=== PATIENT | female | born 1970 | race Caucasian/White ===

== ENCOUNTER → 2016-09-02 | Outpatient (CLI) | payer BC ==
[2015-09-03 13:52] VITALS: BP 141/84; PULSE 68
[~2016-09-02] MED LIST: ADVIN25/60 INH; CALC500C70 PO; TAMO20TA47 PO
[2016-09-02 14:12] VITALS: BP 117/70; PULSE 64; TEMP 37; O2SAT 97
--- NOTE | 2016-09-02 15:53 | Radiation Oncology Follow-Up ---
Radiation Oncology Follow-Up Date of Visit Sep 02, 2016. Reason For Visit Annual follow-up Radiation Completion Date 01/25/13 Diagnosis (1) Breast cancer Status: Resolved Onset Date: 03/21/2012 Histology Subtype: ductal Stage: lll (C) Permanent Comment: Self detected right breast mass Status post right breast ultrasound and core needle biopsy revealing invasive ductal carcinoma with extensive DCIS and invasive lobular carcinoma estrogen receptor positive, progesterone receptor positive, and HER-2/rashida negative Status post right mastectomy and axillary dissection with left prophylactic mastectomy Stage pT3 bN3 M0 Status post systemic chemotherapy with TAC Status post completion of radiation therapy 01/25/2013 received 5920 cGy Status post placement of permanent implants Last Edited By: Cinthia Mensah on Sep 03, 2015 16:31 History of Present Illness Ms. Cordoba is a 44-year-old female who self detected a right breast mass. She underwent a bilateral mammogram on March 13, 2012. The left breast was unremarkable. The right breast revealed a spiculated shadowing at the 12 o'clock position measuring 2.2 x 2.9 x 2.4 cm located 4 cm from the nipple. In addition at the 2 o'clock position a 1.4 x 1.8 x 2.2 cm lesion noted 4 cm from the nipple and at the 4 o'clock position a 1.7 x 2.7 x 2.3 cm mass 5 cm from the nipple. Clinical examination showed a large area of induration and hard tissue diffusely involving the areola and surrounding tissue covering an area of 10-15 cm. This mass was clinically mobile relative to the chest wall, but immobile relative to the areola. The mammogram showed a spiculated mass at the 12 o'clock position middle depth with an adjacent 1.5 cm nodule. On March 15 the patient underwent a bilateral breast MRI with contrast. The left breast revealed no suspicious masses or non- mass like enhancement. The right breast showed numerous suspicious enhancing masses and foci throughout all four quadrants of the breast. The most suspicious area is located middle depth 12 o'clock, grossly measuring 6.5 x 6.8 x 5.7 cm with spiculated margin and rapid uptake and washout kinetics consistent with an infiltrating carcinoma. Estimated volume of the abnormal enhancement surrounding this measures 9.8 x 8.9 x 9.6 cm, which includes numerous smaller similar enhancing nodules and which extends into all four quadrants of the breast. At the 4 o'clock position a 2.4 x 0.8 x 2.5 cm anterior depth area of suspicious enhancement is noted which corresponds to a hypoechoic lesion seen on ultrasound. At the 6-7 o'clock anterior retroareolar region is a 4.0 x 2.7 x 2.7 cm area of heterogeneous abnormal enhancement with rapid uptake and washout kinetics corresponding to an abnormal appearance on ultrasound. These findings are suspicious for a multifocal, multicentric carcinoma of the breast with diffuse involvement. On March 21, 2012, the patient underwent a unilateral right breast ultrasound-guided core biopsy. Preliminary ultrasound redemonstrated at 12 o'clock a spiculated shadowing mass measuring 2.8 x 2.1 x 1.4 cm located 4 cm from the nipple and at the 4 o'clock position an irregular hypoechoic shadowing mass measuring 1.1 x 1.6 x 1.0 cm located 5-6 cm from the nipple. Biopsy of the right breast 12 o'clock mass located 4 cm from the nipple revealed an invasive ductal carcinoma, histologic grade 1 measuring 1.2 cm in greatest dimension. Extensive ductal carcinoma in situ, cribriform with nuclear grade 2 and associated central necrosis and microcalcifications were identified. The biopsy from the right breast 4 o'clock position 6 cm from the nipple revealed an invasive lobular carcinoma, classical type, histologic grade 2 measuring 0.6 cm in greatest dimension. Estrogen receptors were strongly positive, progesterone receptors were moderately positive with HER-2/rashida analysis negative for both lesions. They were also negative by FISH. The patient underwent a staging workup. This included a PET CT scan on April 05, 2012. This showed multifocal metabolic activity in the right breast mass with extension to the right axillary lymph node. No other areas of disseminated disease appreciated. On April 07 the patient underwent an MRI of the brain. There was no evidence of brain metastasis. The patient subsequently met with Dr. Carbajal to discuss treatment options. After discussion she opted for a prophylactic left breast mastectomy and a right breast mastectomy with axillary dissection with immediate breast reconstruction. This was performed on April 21, 2012. Six sentinel lymph nodes from the right breast were identified; all 6 contained metastatic carcinoma with sentinel lymph node 5 consisting of 3 nodes. The patient went on to have a completion axillary dissection. A total of 23 nodes were identified of which 19 contained metastatic carcinoma. The most of the metastatic tumor present is consistent with lobular carcinoma, but a minority does appear ductal. The size of the largest metastasis is 2.5 cm and there was not evidence of extranodal invasion. The right breast tissue was identified. In the lower inner quadrant a tumor mass was identified measuring 4.0 x 2.5 x 2.0 cm. There was involvement of the nipple, but no involvement of the muscle. Base of tumor and LCIS involved the base of the nipple with no Paget's disease noted. There was no lymphovascular or perineural invasion identified. Tumor #2 from the superior aspect of the breast was also identified with a tumor mass measuring 5.2 x 3.0 x 3.0 cm. No skin, nipple or skeletal muscle involvement was identified. There was DCIS primarily cribriform nuclear grade 2/3 with variable comedonecrosis identified. There was significant DCIS present, but the overall findings are insufficient to classify this as extensive DCIS. No LCIS was noted. There was no lymphovascular or perineural invasion appreciated. Two tumors do collide showing a mixture of invasive and in situ carcinoma of lobular and ductal differentiation. Tumor #2 was an invasive ductal carcinoma with Simpson grade 1/3. The AJCC pathologic stage was therefore a [id number] Stage III-C infiltrating ductal infiltrating lobular carcinoma. The patient was seen by Dr. Infante and evaluated for systemic chemotherapy. She completed her course of systemic chemotherapy. She then returned to our office To undergo radiation therapy. This was completed 01/25/2013 she received 5940 cGy. Interim History She had an evaluation for shortness of breath January 2016. This ultimately led to CT of the chest and then a PET/CT. PET/CT revealed probable recurrent breast carcinoma involving multiple stations low cervical, mediastinal, hilar, internal mammary, subpectoral, and upper abdominal warren stations. No definite evidence of osseous involvement or hepatic involvement. She had seen Dr. Infante and was referred to Dr. Farmer and underwent a bronchoscopy. She was diagnosed with sarcoidosis and it is felt that this was causing the extensive lymphadenopathy. She was started on inhalers and had improvement in her shortness of breath. She's been followed closely by Dr. Infante had recheck tumor marker studies. These have remained stable. Allergies Coded Allergies: No Known Allergies (Unverified , 05/11/12) Home Medications Scheduled Calcium/Vitamin D (Os-Adolfo 500 Plus D), 1 TAB PO BID Fluticasone Prop/Salmeterol (Advair Diskus 250/50 60 Dose), 1 PUFFS INH BID Tamoxifen (Nolvadex), 20 MG PO DAILY Review of Systems Gastrointestinal: Symptoms: WNL Oral: Symptoms: No Problems Respiratory: Symptoms: SOB With Exertion Urinary: Symptoms: WNL Skin: Symptoms: No Problems Breast: Right Upper Arm Measurement: 36.8 Right Mid Arm Measurement: 28.5 Right Wrist Measurement: 16.8 Left Upper Arm Measurement: 36.8 Left Mid Arm Measurement: 37.8 Left Wrist Measurement: 16.5 Arm Dominence: Right Physical Exam Vital Signs Date Time Temp Pulse Resp B/P Pulse Ox O2 Delivery O2 Flow Rate FiO2 09/02/16 14:12 37.0 64 16 117/70 97 Pain: Pain Location: None Patient Pain Scale: 0 - 10 Initial Pain Intensity: 0.0 Fatigue: None General Appearance: no apparent distress Eyes: normal inspection, EOMI ENT: normal ENT inspection, hearing grossly normal Neck: no adenopathy, thyroid normal Respiratory/Chest: lungs clear, no respiratory distress, no accessory muscle use Breast: Breast examination reveals bilateral breast implants. There are no masses or tenderness and no axillary adenopathy. She has mild telangiectasis along the incision line on the right. There are no skin retractions. There is slight edema below the incision line. Using the Hazle[place] score cosmesis she has a good outcome. Cardiovascular: regular rate, rhythm, no gallop, no murmur Abdomen: non tender, soft, no organomegaly Extremities: no pedal edema Neurologic/Psychiatric: no motor/sensory deficits, alert, normal mood/affect Skin: warm/dry Lymphatic: no adenopathy Assessment & Plan Plan: Continue regular follow-up with Dr. Infante in medical oncology. He is following tumor marker studies. She continues follow-up with in regards to the new diagnosis of sarcoidosis. I reviewed with her to the massage to the area of edema below the incision line. We reviewed the presence of telangiectasia as a late side effect of treatment. We asked her to return to our office in 1 year. She may call if she has any questions or concerns in the interim. Total Time In Follow-Up I spent 20 minutes speaking to the patient performing examination. I spent 15 minutes reviewing information and completing this note. Copy To Susie White M.D.; Cory Infante M.D. Problem Qualifiers (1) Breast cancer: Breast location: central portion of breast Patient sex: female Laterality: right Qualified Codes: C50.111 - Malignant neoplasm of central portion of right female breast
== END | disposition home or self-care (01) ==
LOC: C.ONC 14:06
PROVIDERS: ATTEND Radiology Radiation Oncology
DX: Z08 Encounter for follow-up examination after completed treatment for malignant neoplasm (principal); Z92.3 Personal history of irradiation; Z85.3 Personal history of malignant neoplasm of breast

== ENCOUNTER → 2017-09-06 | Outpatient (CLI) | payer BC ==
[~2017-09-06] MED LIST changes: -TAMO20TA47 PO; +TAMO20TA9 PO
[2017-09-06 14:18] VITALS: BP 121/81; PULSE 69; TEMP 36.6; O2SAT 98
--- NOTE | 2017-09-06 16:08 | Radiation Oncology Follow-Up ---
Radiation Oncology Follow-Up Date of Visit Sep 06, 2017. Reason For Visit Annual follow-up Radiation Completion Date finished 01-25-2013 Diagnosis (1) Breast cancer Status: Resolved Onset Date: 03/21/2012 Stage: lll (C) Permanent Comment: Self detected right breast mass Status post right breast ultrasound and core needle biopsy revealing invasive ductal carcinoma with extensive DCIS and invasive lobular carcinoma estrogen receptor positive, progesterone receptor positive, and HER-2/rashida negative Status post right mastectomy and axillary dissection with left prophylactic mastectomy Stage pT3 bN3 M0 Status post systemic chemotherapy with TAC Status post completion of radiation therapy 01/25/2013 received 5920 cGy Status post placement of permanent implants Last Edited By: Cinthia Mensah on Sep 03, 2015 16:31 History of Present Illness Ms. Cordoba self detected a right breast mass. She underwent a bilateral mammogram on March 13, 2012. The left breast was unremarkable. The right breast revealed a spiculated shadowing at the 12 o'clock position measuring 2.2 x 2.9 x 2.4 cm located 4 cm from the nipple. In addition at the 2 o'clock position a 1.4 x 1.8 x 2.2 cm lesion noted 4 cm from the nipple and at the 4 o'clock position a 1.7 x 2.7 x 2.3 cm mass 5 cm from the nipple. Clinical examination showed a large area of induration and hard tissue diffusely involving the areola and surrounding tissue covering an area of 10-15 cm. This mass was clinically mobile relative to the chest wall, but immobile relative to the areola. The mammogram showed a spiculated mass at the 12 o'clock position middle depth with an adjacent 1.5 cm nodule. On March 15 the patient underwent a bilateral breast MRI with contrast. The left breast revealed no suspicious masses or non- mass like enhancement. The right breast showed numerous suspicious enhancing masses and foci throughout all four quadrants of the breast. The most suspicious area is located middle depth 12 o'clock, grossly measuring 6.5 x 6.8 x 5.7 cm with spiculated margin and rapid uptake and washout kinetics consistent with an infiltrating carcinoma. Estimated volume of the abnormal enhancement surrounding this measures 9.8 x 8.9 x 9.6 cm, which includes numerous smaller similar enhancing nodules and which extends into all four quadrants of the breast. At the 4 o'clock position a 2.4 x 0.8 x 2.5 cm anterior depth area of suspicious enhancement is noted which corresponds to a hypoechoic lesion seen on ultrasound. At the 6-7 o'clock anterior retroareolar region is a 4.0 x 2.7 x 2.7 cm area of heterogeneous abnormal enhancement with rapid uptake and washout kinetics corresponding to an abnormal appearance on ultrasound. These findings are suspicious for a multifocal, multicentric carcinoma of the breast with diffuse involvement. On March 21, 2012, the patient underwent a unilateral right breast ultrasound-guided core biopsy. Preliminary ultrasound redemonstrated at 12 o'clock a spiculated shadowing mass measuring 2.8 x 2.1 x 1.4 cm located 4 cm from the nipple and at the 4 o'clock position an irregular hypoechoic shadowing mass measuring 1.1 x 1.6 x 1.0 cm located 5-6 cm from the nipple. Biopsy of the right breast 12 o'clock mass located 4 cm from the nipple revealed an invasive ductal carcinoma, histologic grade 1 measuring 1.2 cm in greatest dimension. Extensive ductal carcinoma in situ, cribriform with nuclear grade 2 and associated central necrosis and microcalcifications were identified. The biopsy from the right breast 4 o'clock position 6 cm from the nipple revealed an invasive lobular carcinoma, classical type, histologic grade 2 measuring 0.6 cm in greatest dimension. Estrogen receptors were strongly positive, progesterone receptors were moderately positive with HER-2/rashida analysis negative for both lesions. They were also negative by FISH. The patient underwent a staging workup. This included a PET CT scan on April 05, 2012. This showed multifocal metabolic activity in the right breast mass with extension to the right axillary lymph node. No other areas of disseminated disease appreciated. On April 07 the patient underwent an MRI of the brain. There was no evidence of brain metastasis. The patient subsequently met with Dr. Carbajal to discuss treatment options. After discussion she opted for a prophylactic left breast mastectomy and a right breast mastectomy with axillary dissection with immediate breast reconstruction. This was performed on April 21, 2012. Six sentinel lymph nodes from the right breast were identified; all 6 contained metastatic carcinoma with sentinel lymph node 5 consisting of 3 nodes. The patient went on to have a completion axillary dissection. A total of 23 nodes were identified of which 19 contained metastatic carcinoma. The most of the metastatic tumor present is consistent with lobular carcinoma, but a minority does appear ductal. The size of the largest metastasis is 2.5 cm and there was not evidence of extranodal invasion. The right breast tissue was identified. In the lower inner quadrant a tumor mass was identified measuring 4.0 x 2.5 x 2.0 cm. There was involvement of the nipple, but no involvement of the muscle. Base of tumor and LCIS involved the base of the nipple with no Paget's disease noted. There was no lymphovascular or perineural invasion identified. Tumor #2 from the superior aspect of the breast was also identified with a tumor mass measuring 5.2 x 3.0 x 3.0 cm. No skin, nipple or skeletal muscle involvement was identified. There was DCIS primarily cribriform nuclear grade 2/3 with variable comedonecrosis identified. There was significant DCIS present, but the overall findings are insufficient to classify this as extensive DCIS. No LCIS was noted. There was no lymphovascular or perineural invasion appreciated. Two tumors do collide showing a mixture of invasive and in situ carcinoma of lobular and ductal differentiation. Tumor #2 was an invasive ductal carcinoma with Elly grade 1/3. The AJCC pathologic stage was therefore a [id number] Stage III-C infiltrating ductal infiltrating lobular carcinoma. The patient was seen by Dr. Infante and evaluated for systemic chemotherapy. She completed her course of systemic chemotherapy. She then returned to our office To undergo radiation therapy. This was completed 01/25/2013 she received 5940 cGy. Interim History She is noted no masses or changes of the axilla. She has no areas of tenderness. She has a recurring itching sensation along the outer portion of the inframammary fold. She's noticed no changes of redness. She is to had no areas of dryness or skin irritation. She has been followed closely by medical oncology. She had a PET scan in January 2016 which showed extensive lymphadenopathy. She was evaluated by Dr. Farmer at [facility] with bronchoscopy and biopsy. This was found to be sarcoidosis. This is currently treated with an Advair inhaler. She uses this twice daily. There are times when she becomes more short of breath. This then resolves. She had a recheck CT of the chest January 2017 which showed that the lymph nodes have decreased in size. She has a follow-up appointment with Dr. Farmer and will be having a CT of the chest again in January. Allergies Coded Allergies: No Known Allergies (Unverified , 05/11/12) Home Medications Scheduled Calcium/Vitamin D (Os-Adolfo 500 Plus D), 1 TAB PO BID Fluticasone Prop/Salmeterol (Advair Diskus 250/50 60 Dose), 1 PUFFS INH BID Tamoxifen (Nolvadex), 20 MG PO DAILY Review of Systems Gastrointestinal: Symptoms: WNL Oral: Symptoms: No Problems Respiratory: Symptoms: SOB With Exertion Other Respiratory: was diagnosed with scardosis Urinary: Symptoms: WNL Skin: Symptoms: No Problems Breast: Right Upper Arm Measurement: 38.0 Right Mid Arm Measurement: 28.0 Right Wrist Measurement: 16.8 Left Upper Arm Measurement: 37.0 Left Mid Arm Measurement: 26.5 Left Wrist Measurement: 16.8 Arm Dominence: Right Patient Cosmetic Evaluation: Good Staff Cosmetic Evalaluation: Good Physical Exam Vital Signs Date Time Temp Pulse Resp B/P (MAP) Pulse Ox O2 Delivery O2 Flow Rate FiO2 09/06/17 14:18 36.6 69 16 121/81 98 General Appearance: no apparent distress Eyes: normal inspection, EOMI ENT: normal ENT inspection, hearing grossly normal Neck: no adenopathy, thyroid normal Respiratory/Chest: lungs clear, no respiratory distress, no accessory muscle use Breast: Breast examination reveals bilateral implants. There are no masses or tenderness and no axillary adenopathy. There is slight edema along the lower portion of the right central incision. Using the Noel score cosmesis she has a good outcome. Cardiovascular: regular rate, rhythm, no gallop, no murmur Extremities: no pedal edema Neurologic/Psychiatric: no motor/sensory deficits, alert, normal mood/affect Skin: warm/dry Pain Management Patient Reports Pain: No Side: Bilateral Patient Preferred Pain Scale: 0 - 10 Initial Pain Intensity: 0.0 Pain Management Plan She denies pain therefore requires no pain management. Laboratory Laboratory Results: not applicable Pathology Pathology Results: not applicable Imaging Imaging Studies: were reviewed Imaging Comments Reviewed in the interim history. Assessment & Plan Plan: Continue regular follow-up with Dr. Infante in medical oncology. She continues follow-up with Dr. Farmer. She'll be having a CT of the chest in January. We discussed the itching of the inframammary fold. We discussed that this could be a later skin irritation and could be helped by using Zostrix over- the-counter. She will try this to see if it helps desensitize the area of skin itching. We asked her to return to our office in 1 year. She may call if she has any questions or concerns in the interim. Total Time In Follow-Up I spent 20 minutes speaking to the patient performing examination. I spent 15 minutes reviewing information in completing this note. Copy To Susie White M.D.; Cory Infante M.D. Problem Qualifiers (1) Breast cancer: Breast location: central portion of breast Estrogen receptor status: positive Patient sex: female Laterality: right Qualified Codes: C50.111 - Malignant neoplasm of central portion of right female breast; Z17.0 - Estrogen receptor positive status [ER+]
== END | disposition home or self-care (01) ==
LOC: C.ONC 13:55
PROVIDERS: ATTEND Physician Assistant Medical
DX: Z08 Encounter for follow-up examination after completed treatment for malignant neoplasm (principal); Z92.3 Personal history of irradiation; Z85.3 Personal history of malignant neoplasm of breast

== ENCOUNTER 2019-10-01 15:45 | Inpatient (IN) ==
[2019-10-01] MEDS ORDERED: ONDANSETRON INJ 2 MG/ML 2 ML VIAL IV STA (16:13)
[2019-10-01] MEDS ORDERED: MoRPHine SULFATE 4 MG/ML 1 ML CARP\\VIAL IV PRN (16:13)
[2019-10-01] MEDS ORDERED: SODIUM CHLORIDE 0.9% 1000ML 1,000 ML IV SCH (16:15)
[2019-10-01 16:23] LABS: Basophils # (auto) 0.02 K/uL (0-0.2); Basophils % (auto) 0.2 %; Eosinophils # (auto) 0.03 K/uL (0-0.5); Eosinophils % (auto) 0.3 %; Hematocrit (blood only) 40.1 % (37-47); Hemoglobin 13.3 g/dL (12.0-16.0); Immature Granulocytes # (auto) 0.02 K/uL (0.00-0.02); Immature Granulocytes % (auto) 0.2 %; Lymphocytes # (auto) 1.67 K/uL (1.2-3.4); Lymphocytes % (auto) 18.9 %; Mean Corpuscular Hemoglobin 30.3 pg (25-34); Mean Corpuscular Hgb Conc 33.2 g/dL (32-36); Mean Corpuscular Volume 91.3 fL (80-100); Mean Platelet Volume 10.5 fL (7.4-10.4); Monocytes # (auto) 0.42 K/uL (0.11-0.59); Monocytes % (auto) 4.8 %; Neutrophils # (auto) 6.66 K/uL (1.4-6.5); Neutrophils % (auto) 75.6 %; Platelet Count 243 K/uL (130-400); RDW Coefficient of Variation 13.4 % (11.5-14.5); RDW Standard Deviation 44.3 fL (36.4-46.3); Red Blood Count 4.39 M/uL (4.2-5.4); White Blood Count 8.82 K/uL (4.8-10.8)
[2019-10-01 16:30] LABS: Albumin Level 3.5 gm/dl (3.4-5.0); BUN Creatinine Ratio 10.5 (10-20); Calcium 9.4 mg/dl (8.5-10.1); Creatinine Clr Calc Pharmacy 77.5 ml/min; Est GFR (African American) 71.6; Est GFR (Non-African American) 61.8; Potassium 3.7 mmol/L (3.5-5.1)
[2019-10-01 16:33] LABS: Albumin Globulin Ratio 0.8 (0.9-2); Bilirubin,Total 0.4 mg/dl (0.2-1); Globulin 4.2 gm/dl (2.5-4.0); Total Protein 7.7 gm/dl (6.4-8.2)
[2019-10-01] MEDS ORDERED: PIPERACILL/TAZOBAC CONSULT ACTIVE PRN (18:35)
--- NOTE | 2019-10-01 18:51 | History & Physical Report ---
Date of Service October 01, 2019 Assessment & Plan (1) Acute cholecystitis: This is a 49 yr old F who has significant PMH of Breast Cancer and sarcoidosis who presents to ED 2/2 to epigastric abdominal pain off and on x 1 week. Ultrasound in outpatient setting revealed acute cholecystitis with 13mm nonmobile gallstone in the neck of the gallbladder and diffusely thickened gallbladder wall along with findings of additional cholelithiasis and distended gallbladder. She is afebrile and remains hemodynamically stable. She does not have a leukocytosis. LFTs are WNL, mild elevation in AST to 41. Admit to [facility] General surgery consulted Obtain MRCP Clear liquids tonight, n.p.o. after midnight IV Zosyn IV morphine 4 mg as needed moderate/severe pain Repeat labs in a.m. SCD/teds for DVT prophylaxis (2) Lymph node enlargement: Ultrasound of abdomen revealed an incidental 16 x 10 x 18 mm probable peripancreatic lymph node Will need further evaluation and follow-up given prior history of breast cancer (3) Breast cancer: hx of R Breast ca s/p R masectomy with Axillary lymph node dissection and prophylactic left mastectomy Follows [facility] oncology Dr. Infante Currently on tamoxifen treatment as outpatient, hold while inpatient per discussion between Dr. Taveras with Dr. Infante due to increased risk of DVT/PE Peripancreatic lymph node 16 x 10 x 18 mm noted on ultrasound --will need furt her follow-up given history of breast cancer (4) Sarcoidosis: Follows Dr. Farmer, [facility] currently not receiving treatment dx 2015 via bronchoscopy (5) DVT prophylaxis: SCD/TEDS hold tamoxifen given increased risk of DVT/PE until discharge Disposition: pt admitted to med/surg; discharge to home when able Follow up: PCP Dr. العراقي upon discharge Patient was seen and examined in collaboration with Dr. Taveras, please see addendum History of Present Illness Chief Complaint: Epigastric abdominal pain off and on x 1 week. Primary Care Provider: Susie White MD This is a 49 yr old F who has significant PMH of Breast Cancer and sarcoidosis who presents to ED 2/2 to epigastric abdominal pain off and on x 1 week. at bedside. Pain located in epigastrum with radiation to chest, last 2-3 hours before resolving, worse after meals and liquids, rated 8/10 when present, currently asymptomatic. Initially felt sx likely 2/2 to heart burn. She takes protonix daily. Tried zantac with out relief. Was seen by PCP today and has RUQ US which revealed acute cholecystitis so she was referred to ED. Since last week she has had 2-3 episodes of emesis with abdominal pain, nausea and 2-3 episodes of diarrhea. Last BM this a.m. which was normal for her. Denies f/c/s, dizziness, lightheaded, chest pain, palpitations, SOB, dysuria, increased urg/freq with urination. Overall had had an appetite but eat and drinking less due to pain. Has tried OTC tylenol, nsaids and zantac w/o relief. In ED she remained hemodynamically stable. LFT WNL AST 41, ALT 41, T bili 0.4, alk phos 72, wbc 8.82, H&H 13.3 and 40.1, cr 1.07. She received IV zofran and IV morphine in ED with relief of sx. Allergies Allergy/AdvReac Type Severity Reaction Status Date / Time No Known Allergies Allergy Unverified 05/11/12 07:43 Home Medications Home Medications Medication Instructions Recorded Confirmed Type calcium carbonate-vitamin D3 2 cap PO DAILY 10/01/19 10/01/19 History [Calcium 600 + D(3)] pantoprazole 40 mg PO DAILY 10/01/19 10/01/19 History tamoxifen 20 mg PO DAILY 10/01/19 10/01/19 History Past Med/Surg History Medical History (Updated 10/01/19 @ 19:22 by Berkley Mariee PA-C) Breast cancer (Resolved 03/21/12) "Self detected right breast mass Status post right breast ultrasound and core needle biopsy revealing invasive ductal carcinoma with extensive DCIS and invasive lobular carcinoma estrogen receptor positive, progesterone receptor positive, and HER-2/rashida negative Status post right mastectomy and axillary dissection with left prophylactic mastectomy Stage pT3 bN3 M0 Status post systemic chemotherapy with TAC Status post completion of radiation therapy 01/25/2013 received 5920 cGy Status post placement of permanent implants " Sarcoidosis Surgical History History of bilateral mastectomy 04/21/2012 Right mastectomy with right axillary lymph node dissectiona nd left prophylactic mastectomy 04/21/12 Dr. 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 Beliefs That Will Affect Care: None marital status: Current Living Situation: Spouse Other Information That Helps Us Care for You: No Feels Safe at Home: Yes Safety Concerns: Feels Safe At This Time Smoking Status: Never smoker Hx Alcohol Use: Yes Alcohol type: wine Alcohol Intake Frequency: Rarely Hx Substance Use: No Review of Systems Review of Systems: All systems reviewed & are unremarkable except as noted in HPI & below Physical Exam Physical Exam: Constitutional: WD/WN, F, vitals as above, NAD, sitting up in bed, pleasant, conversing easily Head: Normocephalic, Atraumatic Eyes: PERRL, conjunctivae normal, anicteric sclerae ENMT: external ear and nose normal, oropharynx normal Neck: trachea midline, no thyromegaly normal visual inspection Respiratory: normal respiratory effort, lungs clear to auscultation, no wheeze, rales, rhonchi. Normal insp/exp effort, no accessory muscle use Cardiovascular: RRR, no murmur, no edema Vessels: no JVD or carotid bruit Chest: normal inspection of chest Abdomen: normal bowel sounds, soft, nontender, no hepatosplenomegaly Musculoskeletal: no cyanosis or clubbing, extremities motor strength 5/5 Skin: no rashes, warm and dry normal turgor Neurologic: PERRL, EOMI, accommodation nl, no face palsy, no dysarthria CN's II-XI intact bilaterally and moves all extremities Psychiatric: A+Ox3, euthymic affect Lymphatic: no cervical or axillary lymphadenopathy : deferred Results & Data Vital Signs (Past 12 Hours) Vital Signs Temp Pulse Pulse Resp BP BP Pulse Ox 10/01/19 17:26 93 H 16 137/84 96 10/01/19 15:54 36.8 C 78 20 155/99 H 100 Laboratory Results Short CBC 10/01/19 Range/Units 16:00 WBC 8.82 (4.8-10.8) K/uL Hgb 13.3 (12.0-16.0) g/dL Hct 40.1 (37-47) % Plt Count 243 (130-400) K/uL BMP 10/01/19 16:00 Sodium 138 Potassium 3.7 Chloride 107 Carbon Dioxide 26 BUN 11 Creatinine 1.07 Glucose 84 Calcium 9.4 Liver Function 10/01/19 Range/Units 16:00 Total Bilirubin 0.4 (0.2-1) mg/dl AST 41 H (15-37) U/L ALT 41 (12-78) U/L Alkaline Phosphatase 72 (45-117) U/L Albumin 3.5 (3.4-5.0) gm/dl Diagnostic Findings US done in outpt setting 10/01/19 FINDINGS LIVER: Imaged liver demonstrates no evidence of focal mass. Intrahepatic biliary ductal dilatation is noted, dilated common hepatic duct measures 6 mm in diameter. GALLBLADDER: A 13 mm nonmobile gallstone is noted in the neck of the gallbladder. Multiple mobile gallstones are noted in the gallbladder lumen. Ga llbladder wall is thickened, measures 3 mm in diameter. Gallbladder is distended. diagnostic technologist indicates absent sonographic Szymanski's sign. COMMON BILE DUCT: Dilated, measures 10 mm in diameter. PANCREAS: A 16 x 10 x 18 mm hypoechoic lesion near the head of the pancreas is thought to represent a lymph node. RIGHT KIDNEY: Normal in size and echogenicity, measures 10.9 cm long. No hyd ronephrosis or nephrolithiasis. IMPRESSION IMPRESSION 1. A 13 mm nonmobile gallstone in the neck of the gallbladder and diffusely thickened gallbladder wall along with findings of additional cholelithiasis and distended gallbladder. Sonographic findings are suggestive of cholecystitis. diagnostic technologist indicates absent sonographic Szymanski's sign. Clinical correlation, surgical consultation and follow-up advised. 2. Intra and extrahepatic biliary ductal dilatation. Distal obstruction not excluded. MRCP is a consideration for further evaluation. 3. A 16 x 10 x 18 mm probable peripancreatic lymph node. 4. No focal lesion in the liver. 5. Normal right kidney. Medications Administered Morphine Sulfate (Morphine Sulfate) 4 mg IV Q30M PRN PRN Reason: Pain Stop: 10/15/19 16:12 Last Admin: 10/01/19 16:31 Dose: 4 mg Documented by: [id number] Discontinued Medications Sodium Chloride (Nss 1000ml) 1,000 mls @ 999 mls/hr IV .Q1H1M DINORA Stop: 10/01/19 17:15 Last Infusion: 10/01/19 17:26 Dose: 0 mls/hr Documented by: [id number] Admin: 10/01/19 16:31 Dose: 999 mls/hr Documented by: [id number] Ondansetron HCl (Zofran) 4 mg IV NOW STA Stop: 10/01/19 16:14 Last Admin: 10/01/19 16:31 Dose: 4 mg Documented by: [id number] Code Status & VTE Plan Code Status Full Code VTE Prophylaxis Plan VTE Prophylaxis will be ordered: Yes Supervising Physician Co-Signing Physician Notes HISTORY: Record reviewed. Patient interviewed and examined. Care coordinated with Berkley Mariee PA-C. Please refer to her documentation for complete history. Briefly, 49-year-old female with history of sarcoidosis and breast cancer. Developed epigastric/right upper quadrant abdominal pain about a week ago. Symptoms worse after eating. She was seen in clinic today. CBC, chem profile, lipase were unremarkable. GB US revealed cholelithiasis and cholecystitis as detailed below. Patient referred to the ED for further evaluation and management. Received analgesics in the ED with improvement of her symptoms. EXAM: General- no distress Eyes- anicteric Lungs- clear to auscultation; no respiratory distress Cardiovascular- RRR; no JVD; no pretibial edema Abdomen- + bowel sounds, soft, nontender Extremities- no cyanosis; no calf tenderness Neuro- alert, oriented Skin- warm & dry DATA: Hemoglobin 13.3, white count 8820, platelet count 243,000. Normal electrolytes, BUN 11, creatinine 1.07, glucose 84, total bilirubin 0.4, AST 41, ALT 41, alkaline phosphatase 72, lipase 128. Other lab studies as noted. Abdominal ultrasound performed earlier today at [facility]: IMPRESSION 1. A 13 mm nonmobile gallstone in the neck of the gallbladder and diffusely thickened gallbladder wall along with findings of additional cholelithiasis and distended gallbladder. Sonographic findings are suggestive of cholecystitis. diagnostic technologist indicates absent sonographic Szymanski's sign. Clinical correlation, surgical consultation and follow-up advised. 2. Intra and extrahepatic biliary ductal dilatation. Distal obstruction not excluded. MRCP is a consideration for further evaluation. 3. A 16 x 10 x 18 mm probable peripancreatic lymph node. 4. No focal lesion in the liver. 5. Normal right kidney. ASSESSMENT AND PLAN: Cholelithiasis with cholecystitis as well as dilation of common bile duct. IV antibiotic therapy with piperacillin/tazobactam ordered. Consult General Surgery and GI. History of breast cancer on tamoxifen. At risk for perioperative VTE. Discussed with Hematology/Oncology. Hold tamoxifen during hospital stay. SCDs. Ambulate. Suspected peripancreatic lymph node measuring 18 mm in greatest diameter noted on abdominal ultrasound. History of breast cancer and sarcoidosis. Consider biopsy (? EUS) versus monitoring. Please refer to BONI Mariee's documentation for discussion of other issues.
[2019-10-01] MEDS ORDERED: ALUMINUM/MAGNESIUM SUSP 30 ML UDC PO PRN (18:53)
[2019-10-01] MEDS ORDERED: ONDANSETRON INJ 2 MG/ML 2 ML VIAL IV PRN (18:53)
[2019-10-01] MEDS ORDERED: ACETAMINOPHEN 325 MG TAB PO PRN (18:53)
[2019-10-01 19:48] LABS: Appearance Urine Clear (Clear); Bacteria Urine Automated Negative (Negative); Bilirubin Urine Negative (Negative); Blood Urine Negative (Negative); Color Urine Yellow; Epithelial Cell Urine Auto 20-30 /lpf (0-5); Glucose Urine UA Negative (Negative); Ketones Urine Trace (Negative); Leukocyte Esterase Urine 2+ (Negative); Nitrite Urine Negative (Negative); Protein Urine Negative (Negative); RBC Urine Automated 0-4 /hpf (0-4); Specific Gravity Urine 1.009 (1.000-1.030); Urobilinogen Urine Negative (Negative)
[2019-10-01] MEDS ORDERED: PIPERACILLIN/TAZOBACTAM 4.5 GM in DEXTROSE 5% 100 ML IV ONE (20:30)
[2019-10-01] MEDS: MoRPHine SULFATE 4 MG/ML 1 ML CARP\\VIAL IV PRN (20:56)
--- NOTE | 2019-10-01 21:49 | Surgery Consultation ---
Date of Consultation October 01, 2019 Assessment & Plan (1) Acute cholecystitis: Plan is to obtain an MRCP whether or not she may need an ERCP ahead of time to visualize and further evaluate the biliary system prior to proceeding with a cholecystectomy this was discussed with the patient at this hour 9:45 PM we will keep n.p.o. after midnight and reevaluate her tomorrow and pending MRCP results further recommendations will be made addendum MRCP no definite cbd defects will proceed with lap sergei,c,gram possible open r anc explained to pt eveluated pt earlier this AM no abd findings History of Present Illness Reason for Consultation: Possible acute cholecystitis cholelithiasis intrahepatic and extrahepatic biliary ducts dilatation Attending Physician: Raul Taveras MD History of Present Illness Asked to see patient was worked up as an outpatient at [facility] he came to the emergency room with ultrasound findings of a negative Szymanski sign but distended gallbladder with stones and a stone in the neck of the gallbladder and intrahepatic and extrahepatic biliary tree dilatation Allergies Allergy/AdvReac Type Severity Reaction Status Date / Time No Known Allergies Allergy Unverified 05/11/12 07:43 Home Medications Home Medications Medication Instructions Recorded Confirmed Type calcium carbonate-vitamin D3 2 cap PO DAILY 10/01/19 10/01/19 History [Calcium 600 + D(3)] pantoprazole 40 mg PO DAILY 10/01/19 10/01/19 History tamoxifen 20 mg PO DAILY 10/01/19 10/01/19 History Patient History Medical History Breast cancer (Resolved 03/21/12) "Self detected right breast mass Status post right breast ultrasound and core needle biopsy revealing invasive ductal carcinoma with extensive DCIS and invasive lobular carcinoma estrogen receptor positive, progesterone receptor positive, and HER-2/rashida negative Status post right mastectomy and axillary dissection with left prophylactic mastectomy Stage pT3 bN3 M0 Status post systemic chemotherapy with TAC Status post completion of radiation therapy 01/25/2013 received 5920 cGy Status post placement of permanent implants " Sarcoidosis Surgical History History of bilateral mastectomy 04/21/2012 Right mastectomy with right axillary lymph node dissectiona nd left prophylactic mastectomy 04/21/12 Dr. Carbajal at [facility] History of bronchoscopy History of D&C History of esophagogastroduodenoscopy (EGD) 11/2018 dx gastritis History of oophorectomy Family History Father Alive and well Mother Alzheimer disease Denies family history of Heart disease Breast cancer Social History (Updated 10/01/19 @ 18:41 by Berkley Mariee PA-C) Preferred Language: Malian Communication Ability: Effective [employer] Worker Required: No Beliefs That Will Affect Care: None marital status: Current Living Situation: Spouse Other Information That Helps Us Care for You: No Feels Safe at Home: Yes Safety Concerns: Feels Safe At This Time Smoking Status: Never smoker Hx Alcohol Use: Yes Alcohol type: wine Alcohol Intake Frequency: Rarely Hx Substance Use: No Physical Exam Physical Exam: Present time the patient is comfortable with no abdominal discomfort no nausea Results & Data Vital Signs (Past 12 Hours) Vital Signs Temp Pulse Pulse Resp BP BP Pulse Ox 10/01/19 19:00 36.6 C 74 18 151/89 H 96 10/01/19 17:26 93 H 16 137/84 96 10/01/19 15:54 36.8 C 78 20 155/99 H 100 PG Care Time/CCT Total # of Minutes Spent Total Time Spent with Patient: Total time spent is greater than 50% in coordination of care (as documented) at patient's floor/unit and/or counseling patient: Coding Level of Care Code 95824 Inpt Consult Level 3 Diagnoses Acute cholecystitis K81.0
[2019-10-02] MEDS: PIPERACILLIN/TAZOBACTAM 3.375 GM in DEXTROSE 5% 100 ML IV SCH ×2 (02:04→09:11)
[2019-10-02 06:38] LABS: Basophils # (auto) 0.01 K/uL (0-0.2); Basophils % (auto) 0.2 %; Eosinophils # (auto) 0.18 K/uL (0-0.5); Eosinophils % (auto) 3.2 %; Hematocrit (blood only) 37.4 % (37-47); Hemoglobin 12.3 g/dL (12.0-16.0); Immature Granulocytes # (auto) 0.01 K/uL (0.00-0.02); Immature Granulocytes % (auto) 0.2 %; Lymphocytes # (auto) 1.61 K/uL (1.2-3.4); Lymphocytes % (auto) 28.9 %; Mean Corpuscular Hemoglobin 30.3 pg (25-34); Mean Corpuscular Hgb Conc 32.9 g/dL (32-36); Mean Corpuscular Volume 92.1 fL (80-100); Mean Platelet Volume 10.6 fL (7.4-10.4); Monocytes # (auto) 0.55 K/uL (0.11-0.59); Monocytes % (auto) 9.9 %; Neutrophils # (auto) 3.21 K/uL (1.4-6.5); Neutrophils % (auto) 57.6 %; Platelet Count 212 K/uL (130-400); RDW Coefficient of Variation 13.5 % (11.5-14.5); RDW Standard Deviation 45.3 fL (36.4-46.3); Red Blood Count 4.06 M/uL (4.2-5.4); White Blood Count 5.57 K/uL (4.8-10.8)
[2019-10-02 07:08] LABS: BUN Creatinine Ratio 8.4 (10-20); Calcium 8.8 mg/dl (8.5-10.1); Creatinine Clr Calc Pharmacy 74.7 ml/min; Est GFR (African American) 68.5; Est GFR (Non-African American) 59.1; Potassium 3.9 mmol/L (3.5-5.1)
[2019-10-02 07:10] LABS: Albumin Globulin Ratio 0.8 (0.9-2); Bilirubin,Total 0.5 mg/dl (0.2-1); Globulin 3.7 gm/dl (2.5-4.0); Total Protein 6.7 gm/dl (6.4-8.2)
[2019-10-02] MEDS: PANTOprazole 40 MG TAB PO SCH (07:12)
[2019-10-02] MEDS: MoRPHine SULFATE 4 MG/ML 1 ML CARP\\VIAL IV PRN ×4 (09:08→23:52)
--- NOTE | 2019-10-02 09:17 | Magnetic Resonance Report ---
MR MRCP HISTORY: 49 years-old Female Acute cholecystitis, r/o bile duct obs acute generalized abdominal pain with nausea and vomiting COMPARISON: CT therapy scan of the chest, 12/01/2012 TECHNIQUE: MRCP without IV contrast was obtained according to institutional protocol FINDINGS: Tumbler Tender images demonstrate bilateral breast implants. The heart is upper limits of normal in size. The imaged lower chest is unremarkable. The spleen, pancreas, adrenal glands, and kidneys appear grossly unremarkable. Aorta and IVC are within normal limits as visualized. There are a few nonspecific promi nent and mildly enlarged periaortic lymph nodes measuring up to 1.3 x 1.1 cm on image 20 of series 5. No bowel obstruction or bowel wall thickening. No ascites. A 7 mm nodular focus of the abdominal rig ht lower quadrant may correlate with a colonic diverticulum. Mildly distended stone filled gallbladder measures up to 7.0 cm in length. A 6 mm stone is noted with in the gallbladder neck. The common bile duct is mildly dilated at 8 mm. There is smooth tapering of the distal common bile duct without definite choledocholithiasis. Mild intrahepatic biliary ductal di lation. No pancreatic ductal dilation or pancreatic divisum. There is no gallbladder wall thickening. Trace pericholecystic fluid. IMPRESSION: 1. Stone filled and mildly distended gallbladder is noted with trace pericholecystic fluid. Findings are concerning for developing acute cholecystitis. 2. Mildly dilated common bile duct with mild intrahepatic biliary ductal dilation. No definite choled ocholithiasis identified. 3. Nonspecific mildly prominent and enlarged periportal lymph nodes. ACT 112: Negative or not required by law. The above report was generated using voice recognition software. It may contain grammatical, syntax o r spelling errors. Electronically signed by: Akash Dominguez M.D. 10/02/2019 9:16 AM
[2019-10-02] MEDS ORDERED: ROCURONIUM BROMIDE 10 MG/ML 5 ML VIAL ONE (09:48)
[2019-10-02] MEDS ORDERED: MIDAZOLAM HCL 1 MG/ML 2ML VIAL ONE (09:48)
[2019-10-02] MEDS ORDERED: LARYING-O-JET KIT (LTA) ONE (09:48)
[2019-10-02] MEDS ORDERED: GLYCOPYRROLATE 0.2 MG/ML VIAL ONE (09:48)
[2019-10-02] MEDS ORDERED: DEXAMETHASONE SOD INJ 4 MG/ML VIAL ONE (09:48)
[2019-10-02] MEDS ORDERED: ONDANSETRON INJ 2 MG/ML 2 ML VIAL ONE (09:48)
[2019-10-02] MEDS ORDERED: NEOSTIGMINE METHYLSULFATE 5 MG/5 ML SYR ONE (09:48)
[2019-10-02] MEDS ORDERED: KETOROLAC 30 MG/ML VIAL ONE (09:48)
[2019-10-02] MEDS ORDERED: fentaNYL citrate 100 MCG/2 ML VIAL ONE (09:48)
[2019-10-02] MEDS ORDERED: LIDOCAINE HCL 2% 2 ML VIAL/AMP(20MG/ML) INFIL ONE (09:48)
[2019-10-02] MEDS ORDERED: PROPOFOL IV EMULSION 10 MG/ML 20 ML VIAL IV ONE (09:48)
[2019-10-02] MEDS ORDERED: ONDANSETRON INJ 2 MG/ML 2 ML VIAL IV PRN (09:57)
[2019-10-02] MEDS ORDERED: HYDROmorphone INJ 1 MG/ML SYRINGE IV PRN (09:57)
[2019-10-02] MEDS ORDERED: ATROPINE SULFATE 0.1 MG/ML 10ML SYR IV PRN (09:57)
[2019-10-02] MEDS ORDERED: ePHEDrine sulfate 50 MG/ML AMP IV PRN (09:57)
--- NOTE | 2019-10-02 09:57 | Anesthesiology Consultation ---
Date of Service October 02, 2019 Assessment & Plan (1) Encounter for pre-operative examination: Chart Review Chart Review: Acceptable Risk for Surgery and Patient NOT seen in Pre Admission Testing Consults Requested none History Surgery Operation Date: 10/02/19 11:15 Proposed Procedures p Laparoscopic Cholecystectomy with Cholangiogram - Dex Vargas MD Height/Weight Height: 5 ft 7 in Weight: 96.5 kg Allergies Allergy/AdvReac Type Severity Reaction Status Date / Time No Known Allergies Allergy Unverified 05/11/12 07:43 Medications Home Medications Medication Instructions Recorded Confirmed Last Taken calcium carbonate-vitamin D3 2 cap PO DAILY 10/01/19 10/01/19 Unknown [Calcium 600 + D(3)] pantoprazole 40 mg PO DAILY 10/01/19 10/01/19 Unknown tamoxifen 20 mg PO DAILY 10/01/19 10/01/19 Unknown Active Medications Generic Name Dose Route Start Last Admin Trade Name Freq PRN Reason Stop Dose Admin Piperacillin Sod/Tazobactam 115 mls @ 28.75 mls/hr 10/02/19 02:00 10/02/19 09:11 Sod 3.375 gm/ Dextrose IV 10/12/19 01:59 28.8 mls/hr Q8H DINORA Administration Protocol Morphine Sulfate 4 mg 10/01/19 18:53 10/02/19 09:08 Morphine Sulfate IV 10/15/19 18:52 4 mg Q4H PRN Administration Moderate Pain Pantoprazole Sodium 40 mg 10/02/19 09:00 10/02/19 07:12 Protonix PO 11/01/19 08:59 Not Given DAILY DINORA Past Medical History Medical History Breast cancer (Resolved 03/21/12) "Self detected right breast mass Status post right breast ultrasound and core needle biopsy revealing invasive ductal carcinoma with extensive DCIS and invasive lobular carcinoma estrogen receptor positive, progesterone receptor positive, and HER-2/rashida negative Status post right mastectomy and axillary dissection with left prophylactic mastectomy Stage pT3 bN3 M0 Status post systemic chemotherapy with TAC Status post completion of radiation therapy 01/25/2013 received 5920 cGy Status post placement of permanent implants " Sarcoidosis Exercise / Class Metabolic Activity II 4-5 Yardwork/Stairs/Walk up hill Past Family History Family History Father Alive and well Mother Alzheimer disease Denies family history of Heart disease Breast cancer Past Surgical History Surgical History History of bilateral mastectomy 04/21/2012 Right mastectomy with right axillary lymph node dissectiona nd left prophylactic mastectomy 04/21/[address] [facility] History of bronchoscopy History of D&C History of esophagogastroduodenoscopy (EGD) 11/2018 dx gastritis History of oophorectomy Past Anesthesia History No Hx of Anesthesia Complications and No Family Hx of Anesthesia Complications History of PONV No Hx of PONV and No Hx of Motion Sickness Social History Smoking Status: Never smoker Hx Alcohol Use: Yes Alcohol type: wine alcohol intake frequency: a few times a month Hx Substance Use: No Physical Exam Vital Signs Last Vital Signs Temp 36.9 C 10/02/19 07:11 Pulse 64 10/02/19 07:11 Resp 16 10/02/19 07:11 BP 113/72 10/02/19 07:11 Pulse Ox 96 10/02/19 07:11 Testing Laboratory Results 10/02/19 06:14 10/02/19 06:14 Urine Color Yellow 10/01/19 19:15 Urine Appearance Clear (Clear) 10/01/19 19:15 Urine pH 6.0 (4.5-7.5) 10/01/19 19:15 Ur Specific Benedict 1.009 (1.000-1.030) 10/01/19 19:15 Urine Protein Negative (Negative) 10/01/19 19:15 Urine Glucose (UA) Negative (Negative) 10/01/19 19:15 Urine Ketones Trace (Negative) H 10/01/19 19:15 Urine Nitrite Negative (Negative) 10/01/19 19:15 Ur Leukocyte Esterase 2+ (Negative) H 10/01/19 19:15 Urine WBC (Auto) 10-30 /hpf (0-5) H 10/01/19 19:15 Urine RBC (Auto) 0-4 /hpf (0-4) 10/01/19 19:15 U Hyaline Cast (Auto) 1-5 /lpf (0-5) 10/01/19 19:15 U Epithel Cells (Auto) 20-30 /lpf (0-5) H 10/01/19 19:15 Urine Bacteria (Auto) Negative (Negative) 10/01/19 19:15 10/01/19 19:15 Urine Culture - Preliminary Urine,Clean Catch Group B Beta Strep
--- NOTE | 2019-10-02 10:05 | History & Physical Bridge Note ---
Date of Service October 02, 2019 History & Physical Bridge Note I have examined the patient, reviewed the History & Physical and in the interval since the performance of the History & Physical I have noted the following changes of clinical significance: no changes noted mrcp neg see addendum on surgical consultation will proceed with james freire,gram possible open abd exam neg
[2019-10-02] MEDS ORDERED: SUGAMMADEX SODIUM 200 MG/2 ML VIAL IV ONE (10:07)
[2019-10-02] MEDS ORDERED: LIDOCAINE/EPINEPHRINE 1% 20 ML VIAL ONE (10:15)
[2019-10-02] MEDS ORDERED: CONRAY 60% 50 ML VIAL ONE (10:15)
[2019-10-02] MEDS ORDERED: SCOPOLAMINE 1.5 MG TDSY TD STA (10:24)
[2019-10-02] MEDS ORDERED: SCOPOLAMINE 1.5 MG TDSY ONE (10:24)
[2019-10-02] MEDS ORDERED: GLUCAGON FOR INJ 1 MG VIAL ONE (11:07)
--- NOTE | 2019-10-02 11:40 | Post Operative Brief Note ---
PG Immediate Post Op with CF Date of Surgery October 02, 2019 Pre & Post Diagnosis Operation Date: 10/02/19 11:15 Pre-Op Diagnosis: ACUTE CHOLECYSTITIS Post-Op Diagnosis: ACUTE CHOLECYSTITIS I identified the patient and participated in the time-out.: Yes Procedure Operation Date: 10/02/19 11:15 Actual Procedures p Laparoscopic Cholecystectomy with Cholangiogram(Not Applicable) - Dex Vargas MD Surgeon Dex Vargas MD Science Manager b anthony tavera Estimated Blood Loss 5 Findings Consistent with Post-Op Diagnosis Specimens Specimen Description: A. Lymph Node of [place] B. Gallbladder and contents Drains Jonathan Drain (19fr)
--- NOTE | 2019-10-02 11:46 | Fluoroscopy Report ---
INTRAOPERATIVE CHOLANGIOGRAM HISTORY: Post cholecystectomy. FLUOROSCOPY TIME: 8 seconds. 7 fluoroscopic spot images of the right upper quadrant. FINDINGS: Fluoroscopy was provided for an intraoperative cholangiogram status post cholecystectomy. C ontrast was injected through the cystic duct remnant. Small filling defect seen within the distal com mon bile duct. The common bile duct is mildly distended. There is also mild intrahepatic bile duct di latation. IMPRESSION: Fluoroscopy provided for an intraoperative cholangiogram status post cholecystectomy. Sma ll filling defect seen within the distal common bile duct consistent with a stone. The common bile du ct and intrahepatic bile ducts are mildly distended. ACT 112: Negative or not required by law. Electronically signed by: Renny Sánchez M.D. 10/02/2019 11:45 AM
--- NOTE | 2019-10-02 12:02 | Operative Report ---
PG Post Operative Report Pre & Post Diagnosis Operation Date: 10/02/19 11:15 Pre-Op Diagnosis: ACUTE CHOLECYSTITIS Post-Op Diagnosis: ACUTE CHOLECYSTITIS I identified the patient and participated in the time-out.: Yes Procedure Operation Date: 10/02/19 11:15 Actual Procedures p Laparoscopic Cholecystectomy with Cholangiogram(Not Applicable) - Dex Vargas MD The patient was brought into the operating theater general endotracheal anesthesia supine position the abdomen was prepped Betadine solution properly draped patient has systemic antibiotics on board timeout was had patient was identified small incision was made supraumbilically sufficient for a Veress needle followed by CO2 followed by 5 mm trocar camera followed no injury iden tified at this point on direct visualization we placed a 5 mm epigastric 2 5 mm subcostal ports with preemptive local analgesia 1% Xylocaine the gallbladder could be seen was thick-walled omentum was stuck to it we were able to basically free up the omentum using mostly by blunt dissection a significant of the amount of edema was appreciated on the omentum and on the wall the gallbladder we worked our way towards the neck of the gallbladder elevating it from the lateral retractor and at this point we identified that the patient cystic duct was bit larger than normal we dissected out it could see if the lymph node HERMILA and alcohol see the back common bile duct which was as appreciated dilated. At this point we then maneuvered and created a window around the cystic duct without any difficulty actually a 5 mm clip jewelry sales representative was placed and milked the contents up into the gallbladder where we were able then to clip it small opening cystic duct was made and #4 urethral catheter transversing abdominal wall was positioned in the cystic duct held in place with 5 mm clip serial x-rays were taken which showed distended common bile duct distally there is flow in the duodenum although most of rattail sign is seem like almost a complete abrupt of the common bile duct. I did not see a definite meniscus sign per se but certainly was suspicious at this point I gave 1 mg of glucagon after that was then I tried flushing the cystic the common bile duct with normal saline and more contrast was used and really nothing increased as far as any dilatation or flow into the duodenum the remained the distal common bile duct was quite narrowed. I was not sure this was related to a stone or could have been there is a given significant amount of edema related to the pancreatitis although chemically the patient did not have any elevated lipase. Of interest also that she had a preoperative MRCP that was read as normal. At this point we then secured the cystic duct removing the catheter with 5 mm clips far to went completely across it and it was quite secure we put about 3 of these. They are in anterior posterior branch were dissected out and clipped proximally and distally divided the triangle HERMILA node was actually removed since it was in the way and sent as a section permanent since the patient had a previous history of sarcoid and breast cancer. Gallbladder was removed in antegrade fashion leaving as much posterior peritoneum was possible. Then it was placed in Endopouch and taken out through the epigastric port was quite thick-walled multiple bilirubin type of stones were appreciated that we took out and as we fragmented them together out of the abdomen. I elected at this point to drain the subhepatic area after hemostasis was satisfactory with the intention that patient may need an ERCP to further visualize the distal common bile duct therefore a 19 Jonathan drain was brought in subhepatic length taken out lateral to the port site the camera was placed in the subcostal port to visualize the initial entry into the abdomen and there is no adhesions identified to the umbilical area for trochars were removed no bleeding was identified wounds were closed with 4-0 Monocryl Steri-Strips applied the procedure was tolerated well by the patient estimated blood loss approximately 5 cc patient was taken recovery in good condition addendumB Osmany tavera was present the whole time and helped with retraction exposure and camera work and wound closure Surgeon Dex Vargas MD Fence Rider b osmany tavera Estimated Blood Loss 5 Findings Consistent with Post-Op Diagnosis Specimens gallbladder and contents triangle of [place] Description of Procedure merda I attest to the content of the Intraoperative Record and any orders documented therein. Any exceptions are noted below.
[2019-10-02] MEDS: fentaNYL citrate 100 MCG/2 ML VIAL IV PRN ×3 (12:08→12:30)
--- NOTE | 2019-10-02 14:06 | Gastrointestinal Consultation ---
Date of Consultation October 02, 2019 Assessment & Plan (1) Acute cholecystitis: (2) Bile duct calculus: Pt is a 49 y/o female admitted with cholelithiasis, cholecystitis, s/p lap cholecystectomy this AM. Intraoperative cholangiogram done during her cholecystectomy showed filling defect in distal CBD consistent with a stone. - Diet per Surgery todya but keep NPO after midnight - Will discuss with Dr. Lavelle Ruiz about possible ERCP in OR tomorrow - Symptomatic management with antiemetics and analgesics prn Supervising Physician Co-Signing Physician Notes I performed a history and physical examination of the patient today, including specifically on physical exam - soft abdomen. I have discussed the patient's management with the advanced practitioner. Please refer to the nurse practitioner's note for the documented findings and plan of care. Positive IOC for choledocholithiasis. Plan for ERCP tomorrow. History of Present Illness Reason for Consultation: Abnormal Introperative Cholangiogram Requesting Physician: Dr. Dex Vargas Attending Physician: Dr. Lavelle Ruiz History of Present Illness Pt is a 49 y/o female w PMHx of breast ca s/p bilateral mastectomy, chemotherapy ended in 2011, currently on Tamoxifen, sarcoidosis who was c/o RUQ abd pain associated w n/v x 1 week. On evaluation noted no signs of leukocytosis, AST mildly up at 41, otherwise Tbili, ALT, alk phos and lipase were normal. MRCP obtained showed cholelithiasis w stone in gallbladder neck, distended gallbladder and trace pericholecystic fluid, concerning for acute cholecystitis. She also had midly dilated CBD 8mm and intrahepatic biliary duct but no definite choledocholithiasis noted She was taken to OR by Dr. Vargas this AM and underwent lap cholecystectomy. Intraoperative cholangiogram showed signs of distal CBD stone Allergies Allergy/AdvReac Type Severity Reaction Status Date / Time No Known Allergies Allergy Unverified 05/11/12 07:43 Home Medications Home Medications Medication Instructions Recorded Confirmed Type calcium carbonate-vitamin D3 2 cap PO DAILY 10/01/19 10/01/19 History [Calcium 600 + D(3)] pantoprazole 40 mg PO DAILY 10/01/19 10/01/19 History tamoxifen 20 mg PO DAILY 10/01/19 10/01/19 History Patient History Medical History Breast cancer (Resolved 03/21/12) "Self detected right breast mass Status post right breast ultrasound and core needle biopsy revealing invasive ductal carcinoma with extensive DCIS and invasive lobular carcinoma estrogen receptor positive, progesterone receptor positive, and HER-2/rashida negative Status post right mastectomy and axillary dissection with left prophylactic mastectomy Stage pT3 bN3 M0 Status post systemic chemotherapy with TAC Status post completion of radiation therapy 01/25/2013 received 5920 cGy Status post placement of permanent implants " Sarcoidosis Surgical History History of bilateral mastectomy 04/21/2012 Right mastectomy with right axillary lymph node dissectiona nd left prophylactic mastectomy 04/21/12 Dr. Carbajal at [facility] History of bronchoscopy History of D&C History of esophagogastroduodenoscopy (EGD) 11/2018 dx gastritis History of oophorectomy Hx laparoscopic cholecystectomy (10/02/19) Laparoscopic Cholecystectomy with Cholangiogram Dr. Vargas 10/02/19 Family History Father Alive and well Mother Alzheimer disease Denies family history of Heart disease Breast cancer Social History Preferred Language: Maltese Communication Ability: Effective Inspector Shells Required: No Beliefs That Will Affect Care: None marital status: Current Living Situation: Spouse Other Information That Helps Us Care for You: No Feels Safe at Home: Yes Safety Concerns: Feels Safe At This Time Smoking Status: Never smoker Hx Alcohol Use: Yes Alcohol type: wine Alcohol Intake Frequency: Rarely Hx Substance Use: No Review of Systems Review of Systems: All systems reviewed & are unremarkable except as noted in HPI & below Physical Exam Constitutional: WD/WN, vitals as above well groomed, cooperative and comfortable Eyes: PERRL, conjunctivae normal, anicteric sclerae ENMT: external ear and nose normal, oropharynx normal Respiratory: normal respiratory effort, lungs clear to auscultation Cardiovascular: RRR, no murmur, no edema Gastrointestinal (Abdomen): Inspection/Auscultation: + hypoactive bowel sounds Percussion/Palpation: + abdomen tender and abdomen soft Pt s/p lap cholecystectomy, trochar insertion sites w steri strips in place. Large R abd dressing CDI. MARIANNE drain on R and w serosangenous fluid Skin: no rashes, warm and dry no jaundice Psychiatric: A+Ox3, euthymic affect Lymphatic: no lymphedema Results & Data ([facility]) Vital Signs (Past 12 Hours) Vital Signs Temp Pulse Pulse Resp BP Pulse Ox 10/02/19 13:47 36.5 C 61 18 121/80 96 10/02/19 12:40 54 L 17 128/78 98 10/02/19 12:30 36.8 C 60 21 137/75 100 10/02/19 12:20 56 L 19 135/74 100 10/02/19 12:10 68 17 144/77 H 100 10/02/19 12:00 70 20 150/80 H 100 10/02/19 11:54 36.3 C L 90 16 145/87 H 100 10/02/19 10:16 36.5 C 88 18 144/88 H 98 10/02/19 07:11 36.9 C 64 16 113/72 96
--- NOTE | 2019-10-02 14:22 | Anesthesiology Progress Note ---
Date of Service October 02, 2019 Anesthesia Post Procedure Vital Signs Vital Signs: Temp Pulse Pulse Pulse Resp BP BP 10/02/19 14:15 61 16 122/80 10/02/19 13:47 36.5 C 61 18 121/80 10/02/19 13:00 36.8 C 56 L 18 125/77 10/02/19 12:40 54 L 17 128/78 10/02/19 12:30 36.8 C 60 21 137/75 10/02/19 12:20 56 L 19 135/74 10/02/19 12:10 68 17 144/77 H 10/02/19 12:00 70 20 150/80 H 10/02/19 11:54 36.3 C L 90 16 145/87 H 10/02/19 10:16 36.5 C 88 18 144/88 H 10/02/19 07:11 36.9 C 64 16 113/72 10/01/19 23:00 37.0 C 63 15 132/85 10/01/19 19:00 36.6 C 74 18 151/89 H 10/01/19 17:26 93 H 16 137/84 10/01/19 15:54 36.8 C 78 20 155/99 H Pulse Ox 10/02/19 14:15 96 10/02/19 13:47 96 10/02/19 13:00 97 10/02/19 12:40 98 10/02/19 12:30 100 10/02/19 12:20 100 10/02/19 12:10 100 10/02/19 12:00 100 10/02/19 11:54 100 10/02/19 10:16 98 10/02/19 07:11 96 10/01/19 23:00 95 10/01/19 19:00 96 10/01/19 17:26 96 10/01/19 15:54 100 Pain Intensity Abdomen: Pain Intensity: 4 Transfer of Care Handoff Completed per policy Notes Mental Status: alert / awake / arousable and participated in evaluation Patient Amnestic to Procedure: Yes Nausea / Vomiting: adequately controlled Pain: adequately controlled Airway Patency, RR, SpO2: stable & adequate BP & HR: stable & adequate Hydration State: stable & adequate Anesthetic Complications: no major complications apparent and Pt Satisfied with anesthetic care
--- NOTE | 2019-10-02 14:58 | Hospitalist Progress Note ---
Date of Service October 02, 2019 Assessment & Plan (1) Acute cholecystitis: status post Laparoscopic Cholecystectomy with Cholangiogram (on 10/02/2019) Choledocholithiasis -This is a 49 yr old F who has significant PMH of Breast Cancer and sarcoidosis who presents to ED 09/09 to epigastric abdominal pain off and on x 1 week and placed under observation on 10/01/2019 -Ultrasound in outpatient setting revealed acute cholecystitis with 13mm nonmobile gallstone in the neck of the gallbladder and diffusely thickened gallbladder wall along with findings of additional cholelithiasis and distended gallbladder. She is afebrile and remains hemodynamically stable. She does not have a leukocytosis. LFTs are WNL, mild elevation in AST to 41. -on Zosyn, continue -s/p Laparoscopic Cholecystectomy with Cholangiogram on 10/02/2019 -Intraoperative cholangiogram done during her cholecystectomy showed filling defect in distal CBD consistent with a stone, so gastroenterology service may scheduled ERCP for 10/03/2019 -because of these procedures and operative findings, patient is upgraded to full admission on 10/02/2019 (2) Lymph node enlargement: -Ultrasound of abdomen revealed an incidental 16 x 10 x 18 mm probable peripancreatic lymph node Will need further evaluation and follow-up given prior history of breast cancer (3) Breast cancer: -history of R Breast ca s/p R masectomy with Axillary lymph node d issection and prophylactic left mastectomy -Follows [facility] oncology Dr. Infante -Currently on tamoxifen treatment as outpatient, hold while inpatient per discussion between admitting physician Dr. Taveras and with oncologist Dr. Cory Infante due to increased risk of DVT/PE -Peripancreatic lymph node 16 x 10 x 18 mm noted on ultrasound -will need further follow-up given history of breast cancer (4) Sarcoidosis: -diagnosed via bronchoscopy in 2016, Follows Dr. Farmer, [facility], currently not on active treatment (5) DVT prophylaxis: SCD/TEDS hold tamoxifen given increased risk of DVT/PE until discharge Admission and Anticipated Discharge Date Admission Date: October 01, 2019 discharge date to be determined Subjective Patient returns from Laparoscopic Cholecystectomy with Cholangiogram. No acute distress. on room air. breathing comfortable. no chest pain. tolerating any abdomen discomforts. no dizziness. no headache. Review of Systems Review of Systems: All systems reviewed & are unremarkable except as noted in HPI & below Physical Exam Constitutional: comfortable Eyes: PERRL, conjunctivae normal, anicteric sclerae EOM intact bilaterally ENMT: external ear and nose normal, oropharynx normal Neck: normal visual inspection Respiratory: normal respiratory effort Cardiovascular: Rate/Rhythm: regular rate and regular rhythm Musculoskeletal: Head/Neck/Chest: normocephalic and head atraumatic Neurologic: PERRL, EOMI, accommodation nl, no face palsy, no dysarthria moves all extremities Psychiatric: A+Ox3, euthymic affect Results & Data ([facility]) Vital Signs (Past 12 Hours) Vital Signs Temp Pulse Pulse Resp BP Pulse Ox 10/02/19 14:15 61 16 122/80 96 10/02/19 13:47 36.5 C 61 18 121/80 96 10/02/19 13:00 36.8 C 56 L 18 125/77 97 10/02/19 12:40 54 L 17 128/78 98 10/02/19 12:30 36.8 C 60 21 137/75 100 10/02/19 12:20 56 L 19 135/74 100 10/02/19 12:10 68 17 144/77 H 100 10/02/19 12:00 70 20 150/80 H 100 10/02/19 11:54 36.3 C L 90 16 145/87 H 100 10/02/19 10:16 36.5 C 88 18 144/88 H 98 10/02/19 07:11 36.9 C 64 16 113/72 96
[2019-10-02] MEDS: CHECK SCOPOLAMINE PATCH PLACEMENT SCH ×2 (16:06→23:52)
--- NOTE | 2019-10-02 16:41 | Anesthesiology Consultation ---
Date of Service October 02, 2019 Assessment & Plan (1) Encounter for pre-operative examination: Chart Review Chart Review: Acceptable Risk for Surgery and Patient NOT seen in Pre Admission Testing Consults Requested none History Surgery Operation Date: 10/02/19 11:15 Proposed Procedures p Laparoscopic Cholecystectomy with Cholangiogram - Dex Vargas MD Operation Date: 10/03/19 07:00 Proposed Procedures p Endoscopic Retrograde Cholangiopancreatogram - Lavelle Ruiz MD Height/Weight Height: 5 ft 7 in Weight: 96.5 kg Allergies Allergy/AdvReac Type Severity Reaction Status Date / Time No Known Allergies Allergy Unverified 05/11/12 07:43 Medications Home Medications Medication Instructions Recorded Confirmed Last Taken calcium carbonate-vitamin D3 2 cap PO DAILY 10/01/19 10/01/19 Unknown [Calcium 600 + D(3)] pantoprazole 40 mg PO DAILY 10/01/19 10/01/19 Unknown tamoxifen 20 mg PO DAILY 10/01/19 10/01/19 Unknown Active Medications Generic Name Dose Route Start Last Admin Trade Name Freq PRN Reason Stop Dose Admin Miscellaneous 1 ea 10/02/19 16:00 10/02/19 16:06 Check Scopolamine Patch Placement N/A 10/03/19 09:00 1 ea QS DINORA Administration Morphine Sulfate 4 mg 10/02/19 13:11 10/02/19 16:12 Morphine Sulfate IV 10/16/19 13:10 4 mg Q1H PRN Administration Pain Pantoprazole Sodium 40 mg 10/02/19 09:00 10/02/19 07:12 Protonix PO 11/01/19 08:59 Not Given DAILY DINORA NPO Date Last Intake of Fluids: 10/01/19 Time Last Intake of Fluids: 23:59 Date Last Intake of Solids: 09/30/19 Time Last Intake of Solids: 23:59 Past Medical History Medical History Breast cancer (Resolved 03/21/12) "Self detected right breast mass Status post right breast ultrasound and core needle biopsy revealing invasive ductal carcinoma with extensive DCIS and invasive lobular carcinoma estrogen receptor positive, progesterone receptor positive, and HER-2/rashida negative Status post right mastectomy and axillary dissection with left prophylactic mastectomy Stage pT3 bN3 M0 Status post systemic chemotherapy with TAC Status post completion of radiation therapy 01/25/2013 received 5920 cGy Status post placement of permanent implants " Sarcoidosis Exercise / Class Metabolic Activity II 4-5 Yardwork/Stairs/Walk up hill Past Family History Family History Father Alive and well Mother Alzheimer disease Denies family history of Heart disease Breast cancer Past Surgical History Surgical History History of bilateral mastectomy 04/21/2012 Right mastectomy with right axillary lymph node dissectiona nd left prophylactic mastectomy 04/21/12 Dr. Carbajal at [facility] History of bronchoscopy History of D&C History of esophagogastroduodenoscopy (EGD) 11/2018 dx gastritis History of oophorectomy Hx laparoscopic cholecystectomy (10/02/19) Laparoscopic Cholecystectomy with Cholangiogram Dr. Vargas 10/02/19 Past Anesthesia History No Hx of Anesthesia Complications and No Family Hx of Anesthesia Complications History of PONV No Hx of PONV and No Hx of Motion Sickness Social History Smoking Status: Never smoker Hx Alcohol Use: Yes Alcohol type: wine alcohol intake frequency: a few times a month Hx Substance Use: No Physical Exam Vital Signs Last Vital Signs Temp 36.6 C 10/02/19 16:16 Pulse 66 10/02/19 16:16 Resp 16 10/02/19 16:16 BP 122/82 10/02/19 16:16 Pulse Ox 96 10/02/19 16:16 Testing Laboratory Results 10/02/19 06:14 10/02/19 06:14 Urine Color Yellow 10/01/19 19:15 Urine Appearance Clear (Clear) 10/01/19 19:15 Urine pH 6.0 (4.5-7.5) 10/01/19 19:15 Ur Specific [place] 1.009 (1.000-1.030) 10/01/19 19:15 Urine Protein Negative (Negative) 10/01/19 19:15 Urine Glucose (UA) Negative (Negative) 10/01/19 19:15 Urine Ketones Trace (Negative) H 10/01/19 19:15 Urine Nitrite Negative (Negative) 10/01/19 19:15 Ur Leukocyte Esterase 2+ (Negative) H 10/01/19 19:15 Urine WBC (Auto) 10-30 /hpf (0-5) H 10/01/19 19:15 Urine RBC (Auto) 0-4 /hpf (0-4) 10/01/19 19:15 U Hyaline Cast (Auto) 1-5 /lpf (0-5) 10/01/19 19:15 U Epithel Cells (Auto) 20-30 /lpf (0-5) H 10/01/19 19:15 Urine Bacteria (Auto) Negative (Negative) 10/01/19 19:15 10/02/19 Unknown Gram Stain - Final Gallbladder 10/01/19 19:15 Urine Culture - Preliminary Urine,Clean Catch Group B Beta Strep
--- NOTE | 2019-10-02 23:20 | Emergency Department Note ---
History of Present Illness General Chief complaint: Abdominal Pain Stated complaint: ABD PAIN - REF BY DOCTOR Time Seen by Provider: 10/01/19 16:07 History of Present Illness Maximum Pain Intensity: 6 This is a 49-year-old female presenting to the emergency department for evaluation of epigastric abdominal pain off and on for the past 9 days. The patient states that her symptoms have been waxing and waning, but returned significantly earlier today. She is very nauseated and is with a decreased appetite. She went to her primary care physician this morning, and had an outpatient ultrasound that shows a bile duct stone and acute cholecystitis on ultrasound. The patient was referred to the ER for evaluation. She has not had anything to eat or drink in approximately 18 hours. She has not had fevers or chills. Her past medical history does include who oophorectomy. She rates her current discomfort a colicky 10/10 at worst and a 6/10 currently. Home Medications Home Medications Medication Instructions Recorded Confirmed Type calcium carbonate-vitamin D3 2 cap PO DAILY 10/01/19 10/01/19 History [Calcium 600 + D(3)] pantoprazole 40 mg PO DAILY 10/01/19 10/01/19 History tamoxifen 20 mg PO DAILY 10/01/19 10/01/19 History Allergies Allergy/AdvReac Type Severity Reaction Status Date / Time No Known Allergies Allergy Unverified 05/11/12 07:43 Past Med/Surg History Medical History Breast cancer (Resolved 03/21/12) "Self detected right breast mass Status post right breast ultrasound and core needle biopsy revealing invasive ductal carcinoma with extensive DCIS and invasive lobular carcinoma estrogen receptor positive, progesterone receptor positive, and HER-2/rashida negative Status post right mastectomy and axillary dissection with left prophylactic mastectomy Stage pT3 bN3 M0 Status post systemic chemotherapy with TAC Status post completion of radiation therapy 01/25/2013 received 5920 cGy Status post placement of permanent implants " Sarcoidosis Surgical History History of bilateral mastectomy 04/21/2012 Right mastectomy with right axillary lymph node dissectiona nd left prophylactic mastectomy 04/21/12 Dr. Carbajal at [facility] History of bronchoscopy History of D&C History of esophagogastroduodenoscopy (EGD) 11/2018 dx gastritis History of oophorectomy Hx laparoscopic cholecystectomy (10/02/19) Laparoscopic Cholecystectomy with Cholangiogram Dr. 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: No Beliefs That Will Affect Care: None marital status: Current Living Situation: Spouse Other Information That Helps Us Care for You: No Feels Safe at Home: Yes Safety Concerns: Feels Safe At This Time Smoking Status: Never smoker Hx Alcohol Use: Yes Alcohol type: wine Alcohol Intake Frequency: Rarely Hx Substance Use: No Review of Systems A total of 10 systems reviewed and were otherwise negative Physical Exam Vital Signs Vital Signs - 24 hr 10/02/19 07:11 10/02/19 10:16 10/02/19 11:54 Temperature 36.9 C 36.5 C 36.3 C L Temperature Source Oral Oral Temporal Artery Scan Pulse Rate [Apical] 90 Pulse Rate [Finger] 64 88 Pulse Rhythm [Apical] Regular Pulse Rhythm [Finger] Regular Pulse Strength [Apical] Pulse Strength [Finger] Normal Respiratory Rate 16 18 16 Respiratory Effort / Characteristics Non-Labored Spontaneous Non-Labored Spontaneous Respiratory Depth Normal Normal Normal Respiratory Pattern Regular Regular Blood Pressure [Left Arm] 113/72 144/88 H 145/87 H Blood Pressure Mean [Left Arm] 85 106 106 Blood Pressure Position [Left Arm] Lying Sitting Lying Pulse Oximetry 96 98 100 Oxygen Delivery Method Room Air Room Air Oxymask Oxygen Flow Rate 10 10/02/19 12:00 10/02/19 12:10 10/02/19 12:20 Temperature Temperature Source Temporal Artery Scan Temporal Artery Scan Temporal Artery Scan Pulse Rate [Apical] 70 68 56 L Pulse Rate [Finger] Pulse Rhythm [Apical] Regular Regular Regular Pulse Rhythm [Finger] Pulse Strength [Apical] Pulse Strength [Finger] Respiratory Rate 20 17 19 Respiratory Effort / Characteristics Non-Labored Spontaneous Non-Labored Spontaneous Non-Labored Spontaneous Respiratory Depth Normal Normal Normal Respiratory Pattern Regular Regular Regular Blood Pressure [Left Arm] 150/80 H 144/77 H 135/74 Blood Pressure Mean [Left Arm] 103 99 94 Blood Pressure Position [Left Arm] Lying Lying Lying Pulse Oximetry 100 100 100 Oxygen Delivery Method Oxymask Oxymask Oxymask Oxygen Flow Rate 10 5 5 10/02/19 12:30 10/02/19 12:40 10/02/19 13:00 Temperature 36.8 C 36.8 C Temperature Source Temporal Artery Scan Oral Pulse Rate [Apical] 60 54 L 56 L Pulse Rate [Finger] Pulse Rhythm [Apical] Regular Regular Regular Pulse Rhythm [Finger] Pulse Strength [Apical] Normal Pulse Strength [Finger] Respiratory Rate 21 17 18 Respiratory Effort / Characteristics Non-Labored Spontaneous Non-Labored Spontaneous Non-Labored Respiratory Depth Normal Normal Normal Respiratory Pattern Regular Regular Regular Blood Pressure [Left Arm] 137/75 128/78 125/77 Blood Pressure Mean [Left Arm] 95 94 93 Blood Pressure Position [Left Arm] Lying Lying Lying Pulse Oximetry 100 98 97 Oxygen Delivery Method Nasal Cannula Nasal Cannula Room Air Oxygen Flow Rate 2 2 10/02/19 13:47 10/02/19 14:15 Temperature 36.5 C Temperature Source Oral Pulse Rate [Apical] 61 61 Pulse Rate [Finger] Pulse Rhythm [Apical] Regular Pulse Rhythm [Finger] Pulse Strength [Apical] Normal Pulse Strength [Finger] Respiratory Rate 18 16 Respiratory Effort / Characteristics Non-Labored Respiratory Depth Normal Normal Respiratory Pattern Regular Blood Pressure [Left Arm] 121/80 122/80 Blood Pressure Mean [Left Arm] 93 94 Blood Pressure Position [Left Arm] Lying Lying Pulse Oximetry 96 96 Oxygen Delivery Method Room Air Room Air Oxygen Flow Rate VITALS: Vitals are noted on the nurse's note and reviewed by myself. Vital signs stable. GENERAL: Well-developed, well-nourished, white female who appears in moderate discomfort secondary to her stated complaint. She is overall cooperative. HEAD: Normocephalic atraumatic. EARS: External ear normal. External auditory canals clear, tympanic membranes pearly tineo without erythema or effusion bilaterally. EYES: Pupils equal round and reactive to light and accommodation. Conjunctivae without injection, sclerae without icterus. Extraocular movements intact. NOSE: Patent, turbinates without inflammation or discharge. MOUTH: Mucous membranes moist. Tonsils are not enlarged. Pharynx without erythema, blood, or exudate. Uvula midline. Airway patent. NECK: Supple without nuchal rigidity. No lymphadenopathy. No thyromegaly. Cervical spine is nontender. HEART: Regular rate and rhythm without murmurs gallops or rubs. LUNGS: Clear to auscultation bilaterally without wheezes, rales or rhonchi. No retractions or accessory muscle use. ABDOMEN: Positive normal bowel sounds x 4. Soft with reproducible epigastric tenderness on palpation. No lower abdominal tenderness. No rebound or guarding. There is mild right upper quadrant tenderness but no left upper quadrant tenderness. Course Administered Medications Miscellaneous (Check Scopolamine Patch Placement) 1 ea N/A QS DINORA Stop: 10/03/19 09:00 Last Admin: 10/02/19 16:06 Dose: 1 ea Documented by: [id number] Morphine Sulfate (Morphine Sulfate) 4 mg IV Q1H PRN PRN Reason: Pain Stop: 10/16/19 13:10 Last Admin: 10/02/19 19:42 Dose: 4 mg Documented by: [id number] Admin: 10/02/19 16:12 Dose: 4 mg Documented by: [id number] Pantoprazole Sodium (Protonix) 40 mg PO DAILY [facility] Stop: 11/01/19 08:59 Last Admin: 10/02/19 07:12 Dose: Not Given Documented by: [id number] Discontinued Medications Fentanyl Citrate (Fentanyl Citrate) 25 mcg IV Q5M PRN PRN Reason: PACU Use Only-Pain Stop: 10/02/19 14:57 Last Admin: 10/02/19 12:30 Dose: 25 mcg Documented by: [id number] Admin: 10/02/19 12:13 Dose: 25 mcg Documented by: [id number] Admin: 10/02/19 12:08 Dose: 25 mcg Documented by: [id number] Sodium Chloride (Nss 1000ml) 1,000 mls @ 999 mls/hr IV .Q1H1M DINORA Stop: 10/01/19 17:15 Last Infusion: 10/01/19 17:26 Dose: 0 mls/hr Documented by: [id number] Admin: 10/01/19 16:31 Dose: 999 mls/hr Documented by: [id number] Piperacillin Sod/Tazobactam (Sod 4.5 gm/ Dextrose) 120 mls @ 200 mls/hr IV NOW ONE; Protocol Stop: 10/01/19 21:05 Last Infusion: 10/01/19 22:50 Dose: 0 mls/hr Documented by: [id number] Admin: 10/01/19 21:00 Dose: 200 mls/hr Documented by: [id number] Piperacillin Sod/Tazobactam (Sod 3.375 gm/ Dextrose) 115 mls @ 28.75 mls/hr IV Q8H DINORA; Protocol Stop: 10/12/19 01:59 Last Infusion: 10/02/19 13:53 Dose: 0 mls/hr Documented by: [id number] Admin: 10/02/19 09:11 Dose: 28.8 mls/hr Documented by: [id number] Infusion: 10/02/19 06:06 Dose: 0 mls/hr Documented by: [id number] Admin: 10/02/19 02:04 Dose: 28.8 mls/hr Documented by: [id number] Iothalamate Meglumine (Conray 60%) Confirm Administered Dose 50 ml .ROUTE .STK- MED ONE Stop: 10/02/19 10:16 Last Admin: 10/02/19 11:50 Dose: 20 ml Documented by: [id number] Lidocaine/Epinephrine (Xylocaine/Epinephrine 1%) Confirm Administered Dose 20 ml .ROUTE .STK-MED ONE Stop: 10/02/19 10:16 Last Admin: 10/02/19 11:50 Dose: 12 ml Documented by: [id number] Morphine Sulfate (Morphine Sulfate) 4 mg IV Q30M PRN PRN Reason: Pain Stop: 10/15/19 16:12 Last Admin: 10/01/19 16:31 Dose: 4 mg Documented by: [id number] Morphine Sulfate (Morphine Sulfate) 4 mg IV Q4H PRN PRN Reason: Moderate Pain Stop: 10/15/19 18:52 Last Admin: 10/02/19 09:08 Dose: 4 mg Documented by: [id number] Admin: 10/01/19 20:56 Dose: 4 mg Documented by: [id number] Ondansetron HCl (Zofran) 4 mg IV NOW STA Stop: 10/01/19 16:14 Last Admin: 10/01/19 16:31 Dose: 4 mg Documented by: [id number] Scopolamine (Transderm-Scop) Confirm Administered Dose 1.5 mg .ROUTE .STK-MED ONE Stop: 10/02/19 10:25 Last Admin: 10/02/19 13:44 Dose: Not Given Documented by: [id number] Scopolamine (Transderm-Scop) 1.5 mg TD ONE STA Stop: 10/02/19 10:25 Last Admin: 10/02/19 10:25 Dose: 1.5 mg Documented by: [id number] Medical Decision Making Differential Diagnosis Differential diagnosis: Etiologies such as biliary colic, cholecystitis, hepatitis, pancreatitis, car diac disease, pancreatitis, gastritis, peptic ulcer disease, appendicitis, cystitis, diverticulitis, mesenteric ischemia, inflammatory bowel disease, ileus, bowel obstruction, testicular/adnexal torsion, aortic pathology, shingles, as well as others were considered Laboratory Data Result diagrams: 10/02/19 06:14 10/02/19 06:14 Lab Results 10/01/19 10/01/19 10/01/19 Range/Units 16:00 16:00 19:15 WBC 8.82 (4.8-10.8) K/uL RBC 4.39 (4.2-5.4) M/uL Hgb 13.3 (12.0-16.0) g/dL Hct 40.1 (37-47) % MCV 91.3 (80-100) fL MCH 30.3 (25-34) pg MCHC 33.2 (32-36) g/dL RDW Std Deviation 44.3 (36.4-46.3) fL RDW Coeff of Salvatore 13.4 (11.5-14.5) % Plt Count 243 (130-400) K/uL MPV 10.5 H (7.4-10.4) fL Immature Gran % (Auto) 0.2 % Neut % (Auto) 75.6 % Lymph % (Auto) 18.9 % [place] % (Auto) 4.8 % Eos % (Auto) 0.3 % Baso % (Auto) 0.2 % Immature Gran # (Auto) 0.02 (0.00-0.02) K/uL Neut # (Auto) 6.66 H (1.4-6.5) K/uL Lymph # (Auto) 1.67 (1.2-3.4) K/uL [place] # (Auto) 0.42 (0.11-0.59) K/uL Eos # (Auto) 0.03 (0-0.5) K/uL Baso # (Auto) 0.02 (0-0.2) K/uL Sodium 138 (136-145) mmol/L Potassium 3.7 (3.5-5.1) mmol/L Chloride 107 (98-107) mmol/L Carbon Dioxide 26 (21-32) mmol/L Anion Gap 6.0 (3-11) BUN 11 (7-18) mg/dl Creatinine 1.07 (0.6-1.2) mg/dl Est Cr Clr Drug Dosing 77.5 ml/min Est GFR ( Amer) 71.6 Est GFR (Non-Af Amer) 61.8 BUN/Creatinine Ratio 10.5 (10-20) Glucose 84 (70-99) mg/dl Calcium 9.4 (8.5-10.1) mg/dl Total Bilirubin 0.4 (0.2-1) mg/dl AST 41 H (15-37) U/L ALT 41 (12-78) U/L Alkaline Phosphatase 72 (45-117) U/L Total Protein 7.7 (6.4-8.2) gm/dl Albumin 3.5 (3.4-5.0) gm/dl Globulin 4.2 H (2.5-4.0) gm/dl Albumin/Globulin Ratio 0.8 L (0.9-2) Lipase 128 (73-393) U/L Urine Color Yellow Urine Appearance Clear (Clear) Urine pH 6.0 (4.5-7.5) Ur Specific [place] 1.009 (1.000-1.030) Urine Protein Negative (Negative) Urine Glucose (UA) Negative (Negative) Urine Ketones Trace H (Negative) Urine Blood Negative (Negative) Urine Nitrite Negative (Negative) Urine Bilirubin Negative (Negative) Urine Urobilinogen Negative (Negative) Ur Leukocyte Esterase 2+ H (Negative) Urine WBC (Auto) 10-30 H (0-5) /hpf Urine RBC (Auto) 0-4 (0-4) /hpf U Hyaline Cast (Auto) 1-5 (0-5) /lpf U Epithel Cells (Auto) 20-30 H (0-5) /lpf Urine Bacteria (Auto) Negative (Negative) 10/02/19 10/02/19 Range/Units 06:14 06:14 WBC 5.57 (4.8-10.8) K/uL RBC 4.06 L (4.2-5.4) M/uL Hgb 12.3 (12.0-16.0) g/dL Hct 37.4 (37-47) % MCV 92.1 (80-100) fL MCH 30.3 (25-34) pg MCHC 32.9 (32-36) g/dL RDW Std Deviation 45.3 (36.4-46.3) fL RDW Coeff of Salvatore 13.5 (11.5-14.5) % Plt Count 212 (130-400) K/uL MPV 10.6 H (7.4-10.4) fL Immature Gran % (Auto) 0.2 % Neut % (Auto) 57.6 % Lymph % (Auto) 28.9 % [place] % (Auto) 9.9 % Eos % (Auto) 3.2 % Baso % (Auto) 0.2 % Immature Gran # (Auto) 0.01 (0.00-0.02) K/uL Neut # (Auto) 3.21 (1.4-6.5) K/uL Lymph # (Auto) 1.61 (1.2-3.4) K/uL [place] # (Auto) 0.55 (0.11-0.59) K/uL Eos # (Auto) 0.18 (0-0.5) K/uL Baso # (Auto) 0.01 (0-0.2) K/uL Sodium 140 (136-145) mmol/L Potassium 3.9 (3.5-5.1) mmol/L Chloride 110 H (98-107) mmol/L Carbon Dioxide 25 (21-32) mmol/L Anion Gap 5.0 (3-11) BUN 9 (7-18) mg/dl Creatinine 1.11 (0.6-1.2) mg/dl Est Cr Clr Drug Dosing 74.7 ml/min Est GFR ( Amer) 68.5 Est GFR (Non-Af Amer) 59.1 BUN/Creatinine Ratio 8.4 L (10-20) Glucose 90 (70-99) mg/dl Calcium 8.8 (8.5-10.1) mg/dl Total Bilirubin 0.5 (0.2-1) mg/dl AST 27 (15-37) U/L ALT 38 (12-78) U/L Alkaline Phosphatase 64 (45-117) U/L Total Protein 6.7 (6.4-8.2) gm/dl Albumin 3.0 L (3.4-5.0) gm/dl Globulin 3.7 (2.5-4.0) gm/dl Albumin/Globulin Ratio 0.8 L (0.9-2) Lipase (73-393) U/L Urine Color Urine Appearance (Clear) Urine pH (4.5-7.5) Ur Specific [place] (1.000-1.030) Urine Protein (Negative) Urine Glucose (UA) (Negative) Urine Ketones (Negative) Urine Blood (Negative) Urine Nitrite (Negative) Urine Bilirubin (Negative) Urine Urobilinogen (Negative) Ur Leukocyte Esterase (Negative) Urine WBC (Auto) (0-5) /hpf Urine RBC (Auto) (0-4) /hpf U Hyaline Cast (Auto) (0-5) /lpf U Epithel Cells (Auto) (0-5) /lpf Urine Bacteria (Auto) (Negative) MDM Narrative Physical exam and history were performed. Nursing notes, EMR, and Medication List were personally reviewed. Patient appears to have epigastric abdominal pain for the past 9 days. Her symptoms have significantly worsened today and outpatient ultrasound does not show acute cholecystitis with biliary duct calculus. IV access was established and labs were obtained. The patient was hydrated with normal saline. She was given IV morphine and IV Zofran. She was made n.p.o. The patient blood work is as above and was reviewed. She does not have a significantly elevated white blood cell count, gross anemia, bandemia, or significant electrolyte imbalance. Lipase and transaminases are not diagnostic. The case was discussed with the on-call surgeon, Dr. Washington, who did evaluate the patient here in the ER. She will likely need MRCP, and surgery asked if medicine would be willing to admit. The case was discussed with the on-call hospitalist team, who agreed to evaluate the patient here in the ER. Please see their dictation for further patient course, plan, and disposition. The chart was completed utilizing i[employer] Speech Voice Recognition Software. Grammatical errors, random word insertions, pronoun errors, and incomplete sentences are an occasional consequence of this system due to software li mitations, ambient noise, and hardware issues. Any formal questions or concerns about the content, text, or information contained within the body of this dictation should be directly addressed to the provider for clarification. . Impression & Plan Acute cholecystitis, Bile duct calculus Discharge Plan Visit Data *Final* Discharge Date/Time: 10/01/19 17:56 Chief Complaint: Abdominal Pain Stated Complaint: ABD PAIN - REF BY DOCTOR ED Provider: Sandoval Cr ED Midlevel Provider: Amando Dupree Discharge Problem: Acute cholecystitis, Bile duct calculus Patient Disposition: Admitted As Inpatient Discharge Instructions Interventions: ED Discharge Assessment Last Done: 10/01/19 17:56
[2019-10-03] MEDS: MoRPHine SULFATE 4 MG/ML 1 ML CARP\\VIAL IV PRN ×5 (05:37→23:03)
[2019-10-03] MEDS ORDERED: INDOMETHACIN 50 MG SUPP PR ONE ×2 (08:45→14:53)
[2019-10-03 08:52] LABS: Basophils # (auto) 0.02 K/uL (0-0.2); Basophils % (auto) 0.3 %; Eosinophils % (auto) 1.5 %; Hematocrit (blood only) 37.5 % (37-47); Hemoglobin 12.2 g/dL (12.0-16.0); Immature Granulocytes # (auto) 0.02 K/uL (0.00-0.02); Immature Granulocytes % (auto) 0.3 %; Lymphocytes # (auto) 1.67 K/uL (1.2-3.4); Mean Corpuscular Hemoglobin 30.2 pg (25-34); Mean Corpuscular Hgb Conc 32.5 g/dL (32-36); Mean Corpuscular Volume 92.8 fL (80-100); Mean Platelet Volume 10.4 fL (7.4-10.4); Monocytes # (auto) 0.49 K/uL (0.11-0.59); Monocytes % (auto) 7.3 %; Neutrophils # (auto) 4.37 K/uL (1.4-6.5); Neutrophils % (auto) 65.6 %; Platelet Count 219 K/uL (130-400); RDW Coefficient of Variation 13.7 % (11.5-14.5); RDW Standard Deviation 46.8 fL (36.4-46.3); Red Blood Count 4.04 M/uL (4.2-5.4); White Blood Count 6.67 K/uL (4.8-10.8)
[2019-10-03] MEDS: CHECK SCOPOLAMINE PATCH PLACEMENT SCH ×3 (08:59→23:03)
[2019-10-03] MEDS: PANTOprazole 40 MG TAB PO SCH (09:00)
--- NOTE | 2019-10-03 09:14 | Surgery Progress Note ---
Date of Service October 03, 2019 Assessment & Plan (1) Bile duct calculus: Patient is n.p.o. scheduled for an ERCP today for extraction of common bile duct stone Intraoperative findings were discussed with the patient including the fact that we performed a cholangiogram even though the MRCP did not show any obvious stone but intraoperative cholangiogram did Pending the timing of her ERCP from my point of view the patient could be discharged I will leave that decision up to the GI endoscopist I went to discharge the patient The Jonathan drains can be removed prior to discharge her left and we will see her back in the office in a few days to remove it Present on Admission?: Yes Subjective Patient feels fine no abdominal discomfort had a good night sleep Physical Exam Physical Exam: Alert coherent no distress Abdomen completely benign Jonathan drainage serous nonbilious nonbloody minimal drainage Results & Data Vital Signs (Past 12 Hours) Vital Signs Temp Pulse Resp BP Pulse Ox 10/03/19 08:11 36.8 C 59 L 16 111/71 93 10/03/19 04:03 36.8 C 66 16 118/76 92 10/02/19 23:00 36.9 C 71 16 115/72 94 PG Care Time/CCT Total # of Minutes Spent Total Time Spent with Patient: Total time spent is greater than 50% in coordination of care (as documented) at patient's floor/unit and/or counseling patient: Coding Level of Care Code None Diagnoses Bile duct calculus K80.50
[2019-10-03 09:31] LABS: Albumin Level 3.2 gm/dl (3.4-5.0); BUN Creatinine Ratio 7.6 (10-20); Calcium 9.1 mg/dl (8.5-10.1); Creatinine Clr Calc Pharmacy 78.3 ml/min; Est GFR (African American) 72.4; Est GFR (Non-African American) 62.5
[2019-10-03 09:33] LABS: Bilirubin,Total 0.4 mg/dl (0.2-1); Total Protein 6.8 gm/dl (6.4-8.2)
[2019-10-03 10:52] LABS: Potassium 3.6 mmol/L (3.5-5.1)
[2019-10-03 10:58] LABS: Bilirubin Direct 0.1 mg/dl (0-0.2)
--- NOTE | 2019-10-03 11:13 | Gastroenterology Progress Note ---
Date of Service October 03, 2019 Assessment & Plan (1) Acute cholecystitis: (2) Bile duct calculus: Pt is a 49 y/o female admitted with cholelithiasis, cholecystitis, s/p lap cholecystectomy on 10/02/2019. Intraoperative cholangiogram done during her cholecystectomy showed filling defect in distal CBD consistent with a stone. - Keep NPO . Plans for ERCP in OR this afternoon by Dr. Lavelle Ruiz. - Symptomatic management with antiemetics and analgesics prn Admission and Anticipated Discharge Date Admission Date: October 02, 2019 Supervising Physician Co-Signing Physician Notes I performed a history and physical examination of the patient today, including specifically on physical exam - soft abdomen. I have discussed the patient's management with the advanced practitioner. Please refer to the nurse practitioner's note for the documented findings and plan of care. CBD stone on IOC with enlarged peripancreatic LN on sonogram. Will do EUS/ERCP Subjective Pt reports abd pain is improved. Denies n/v. Passing flatus, no BMs. No acute events overnight Review of Systems Review of Systems: All systems reviewed & are unremarkable except as noted in HPI & below Physical Exam Constitutional: WD/WN, vitals as above well groomed, cooperative and comfortable Eyes: PERRL, conjunctivae normal, anicteric sclerae ENMT: external ear and nose normal, oropharynx normal Respiratory: normal respiratory effort, lungs clear to auscultation Cardiovascular: RRR, no murmur, no edema Gastrointestinal (Abdomen): Inspection/Auscultation: normal bowel sounds Percussion/Palpation: abdomen soft; abdomen nontender MARIANNE drain to R side of abdomen w serous drainage. Trochar site steristrips and surgical dressing CDI Skin: no rashes, warm and dry no jaundice Psychiatric: A+Ox3, euthymic affect Lymphatic: no lymphedema Results & Data ([facility]) Vital Signs (Past 12 Hours) Vital Signs Temp Pulse Resp BP Pulse Ox 10/03/19 08:11 36.8 C 59 L 16 111/71 93 10/03/19 04:03 36.8 C 66 16 118/76 92
--- NOTE | 2019-10-03 14:46 | History & Physical Bridge Note ---
Date of Service October 03, 2019 History & Physical Bridge Note I have examined the patient, reviewed the History & Physical and in the interval since the performance of the History & Physical I have noted the following changes of clinical significance: no changes noted
[2019-10-03] MEDS ORDERED: ePHEDrine sulfate 50 MG/ML AMP IV PRN (14:56)
[2019-10-03] MEDS ORDERED: fentaNYL citrate 100 MCG/2 ML VIAL IV PRN (14:56)
[2019-10-03] MEDS ORDERED: ATROPINE SULFATE 0.1 MG/ML 10ML SYR IV PRN (14:56)
[2019-10-03] MEDS ORDERED: ONDANSETRON INJ 2 MG/ML 2 ML VIAL IV PRN (14:56)
[2019-10-03] MEDS ORDERED: SCOPOLAMINE 1.5 MG TDSY TD ONE (14:57)
[2019-10-03] MEDS ORDERED: MIDAZOLAM HCL 1 MG/ML 2ML VIAL ONE (15:01)
[2019-10-03] MEDS ORDERED: GLYCOPYRROLATE 0.2 MG/ML VIAL ONE (15:01)
[2019-10-03] MEDS ORDERED: NEOSTIGMINE METHYLSULFATE 5 MG/5 ML SYR ONE (15:01)
[2019-10-03] MEDS ORDERED: fentaNYL citrate 100 MCG/2 ML VIAL ONE (15:01)
[2019-10-03] MEDS ORDERED: PHENYLEPHRINE HCL 10 MG/ML VIAL ONE (15:01)
[2019-10-03] MEDS ORDERED: ONDANSETRON INJ 2 MG/ML 2 ML VIAL ONE (15:01)
[2019-10-03] MEDS ORDERED: PROPOFOL IV EMULSION 10 MG/ML 20 ML VIAL IV ONE (15:01)
[2019-10-03] MEDS ORDERED: DEXAMETHASONE SOD INJ 4 MG/ML VIAL ONE (15:01)
[2019-10-03] MEDS ORDERED: ePHEDrine sulfate 50 MG/ML AMP ONE (15:01)
[2019-10-03] MEDS ORDERED: LIDOCAINE HCL 2% 2 ML VIAL/AMP(20MG/ML) INFIL ONE (15:01)
[2019-10-03] MEDS ORDERED: SUCCINYLCHOLINE CHLORIDE 20 MG/ML 10 ML VIAL ONE (15:01)
[2019-10-03] MEDS ORDERED: ROCURONIUM BROMIDE 10 MG/ML 5 ML VIAL ONE (15:26)
[2019-10-03] MEDS ORDERED: SODIUM CHLORIDE 0.9% INJ 10 ML VIAL ONE (15:32)
[2019-10-03] MEDS ORDERED: LARYING-O-JET KIT (LTA) ONE (15:35)
--- NOTE | 2019-10-03 16:18 | Operative Report ---
Post Operative Report Pre & Post Diagnosis Operation Date: 10/02/19 11:15 Pre-Op Diagnosis: ACUTE CHOLECYSTITIS Post-Op Diagnosis: ACUTE CHOLECYSTITIS Operation Date: 10/03/19 14:25 Pre-Op Diagnosis: ACUTE CHOLECYSTITIS Post-Op Diagnosis: ACUTE CHOLECYSTITIS, Malignant Lymph Node and Common Bilary Duct Stone I identified the patient and participated in the time-out.: Yes Procedure Operation Date: 10/02/19 11:15 Actual Procedures p Laparoscopic Cholecystectomy with Cholangiogram(Not Applicable) - Dex Vargas MD Operation Date: 10/03/19 14:25 Actual Procedures p Endoscopic Retrograde Cholangiopancreatogram(Not Applicable) - MD fabricio Clai Endoscopic Ultrasonography Upper(Not Applicable) - Lavelle Ruiz MD s Esophagogastroduodenoscopy - Lavelle Ruiz MD Surgeon Lavelle Ruiz MD Hand Sewer b anthony tavera Estimated Blood Loss 0 Findings See Below (CBD stone removed, Malignant LN biopsied by FNA) Specimens Periportal LN Description of Procedure EUS/ERCP I attest to the content of the Intraoperative Record and any orders documented therein. Any exceptions are noted below.
--- NOTE | 2019-10-03 16:26 | GI REPORT ---
Patient Name: Shante Cordoba Procedure Date: 10/03/2019 2:52 PM Date of : 1970 Admit Type: Inpatient Age: 49 Gender: Female Attending MD: Lavelle Ruiz MD Procedure: Upper GI endoscopy Providers: Lavelle Ruiz MD Referring MD: Jack Montgomery Indications: Epigastric abdominal pain Medicines: General Anesthesia Complications: No immediate complications. Estimated Blood Loss: Estimated blood loss: none. Procedure: Pre-Anesthesia Assessment: - Prior to the procedure, a History and Physical was performed, and patient medications, allergies and sensitivities were reviewed. The patient's tolerance of previous anesthesia was reviewed. - The risks and benefits of the procedure and the sedation options and risks were discussed with the patient. All questions were answered and informed consent was obtained. - Patient identification and proposed procedure were verified prior to the procedure by the physician and the nurse. The procedure was verified in the procedure room. - Pre-procedure physical examination revealed no contraindications to sedation. After obtaining informed consent, the endoscope was passed under direct vision. Throughout the procedure, the patient's blood pressure, pulse, and oxygen saturations were monitored continuously. The Endoscope was introduced through the mouth, and advanced to the second part of duodenum. The upper GI endoscopy was accomplished without difficulty. The patient tolerated the procedure well. Findings: The examined esophagus was normal. The entire examined stomach was normal. The duodenal bulb and second portion of the duodenum were normal. Impression: - Normal esophagus. - Normal stomach. - Normal duodenal bulb and second portion of the duodenum. Recommendation: - Perform an upper endoscopic ultrasound (UEUS) today. Lavelle Ruiz MD 10/03/2019 4:26:19 PM This report has been signed electronically. Note Initiated On: 10/03/2019 2:52 PM Number of Addenda: 0 I attest to the content of the Intraoperative Record and orders documented therein, exceptions below {[id number]}
--- NOTE | 2019-10-03 16:46 | GI REPORT ---
Patient Name: Shante Cordoba Procedure Date: 10/03/2019 3:00 PM Date of : 1970 Admit Type: Inpatient Age: 49 Gender: Female Attending MD: Lavelle Ruiz MD Procedure: Upper EUS Providers: Lavelle Ruiz MD Referring MD: Jack Montgomery Panliliyevgeniy Indications: Abnormal ultrasound of the abdomen (enlarged peripancreatic LN) Medicines: General Anesthesia Complications: No immediate complications. Estimated Blood Loss: Estimated blood loss: none. Procedure: Pre-Anesthesia Assessment: - Prior to the procedure, a History and Physical was performed, and patient medications, allergies and sensitivities were reviewed. The patient's tolerance of previous anesthesia was reviewed. - The risks and benefits of the procedure and the sedation options and risks were discussed with the patient. All questions were answered and informed consent was obtained. - Patient identification and proposed procedure were verified prior to the procedure by the physician and the nurse. The procedure was verified in the procedure room. - Pre-procedure physical examination revealed no contraindications to sedation. After obtaining informed consent, the endoscope was passed under direct vision. Throughout the procedure, the patient's blood pressure, pulse, and oxygen saturations were monitored continuously. The Endosonoscope was introduced through the mouth, and advanced to the second part of duodenum. The upper EUS was accomplished without difficulty. The patient tolerated the procedure well. Findings: ENDOSONOGRAPHIC FINDING: : Two malignant-appearing lymph nodes were visualized in the peripancreatic region and danie hepatis region. The largest measured 18 mm by 12 mm in maximal cross-sectional diameter. The nodes were irregular, hypoechoic and had well defined margins. Fine needle aspiration for cytology was performed. Color Doppler imaging was utilized prior to needle puncture to confirm a lack of significant vascular structures within the needle path. Two passes were made with the 25 gauge needle (Procore) using a transduodenal approach. A stylet was used. A welfare worker was present to evaluate the adequacy of the specimen. The cellularity of the specimen was adequate. Final cytology results are pending. Verification of patient identification for the specimen was done by the physician and nurse using the patient's name and date. There was no sign of significant endosonographic abnormality in the ampulla. No masses were identified. There was dilation in the common bile duct which measured up to 7 mm. One stone was visualized endosonographically in the common bile duct. The stone was round. It was hyperechoic and characterized by shadowing. Evidence of a previous cholecystectomy was identified endosonographically. There was no sign of significant endosonographic abnormality in the entire pancreas. The pancreatic duct measured up to 2 mm in diameter. An anechoic lesion suggestive of a benign cyst was identified in the pancreatic head. It is not in obvious communication with the pancreatic duct. The lesion measured 8 mm in maximal cross-sectional diameter. There was a single compartment without septae. There was no associated mass. There was no internal debris within the fluid-filled cavity. There was no sign of significant endosonographic abnormality in the left lobe of the liver. There was no sign of significant endosonographic abnormality in the visualized portion of the left adrenal gland. There was no sign of significant endosonographic abnormality involving the celiac trunk. Impression: - Two malignant-appearing lymph nodes were visualized in the peripancreatic region and danie hepatis region. Fine needle aspiration performed. - There was no sign of significant pathology in the ampulla. - There was dilation in the common bile duct which measured up to 7 mm. One stone was visualized endosonographically in the common bile duct. - Evidence of a cholecystectomy. - There was no sign of significant pathology in the entire pancreas. 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 - There was no evidence of significant pathology in the left lobe of the liver. - Endosonographic images of the left adrenal gland were unremarkable. - The celiac trunk was endosonographically normal. Recommendation: - Await cytology results. - Perform an ERCP today. - Not a candidate for pancreatic cyst surveillance. Lavelle Ruiz MD 10/03/2019 4:45:48 PM This report has been signed electronically. Note Initiated On: 10/03/2019 3:00 PM Number of Addenda: 0 I attest to the content of the Intraoperative Record and orders documented therein, exceptions below {[id number]}
--- NOTE | 2019-10-03 16:46 | Fluoroscopy Report ---
[place] ERCP biliary ductal CLINICAL HISTORY: EXPLORE DUCTS COMPARISON STUDY: 10/02/2019 FLUOROSCOPY TIME: 2 minutes 40 seconds NUMBER OF FLUOROSCOPIC IMAGES: 10 FINDINGS: Retrograde opacification of the common bile duct was performed following cannulation of the pancreatic and common bile ducts. There is moderate dilatation of the common bile duct. This all by balloon insufflation and sweeping o f the common duct. IMPRESSION: Balloon insufflation and sweeping of the common bile duct. ACT 112: Negative or not required by law. The above report was generated using voice recognition software. It may contain grammatical, syntax or spelling errors. Electronically signed by: Nando Ariza M.D. 10/03/2019 4:45 PM
--- NOTE | 2019-10-03 16:53 | GI REPORT ---
Patient Name: Shante Cordoba Procedure Date: 10/03/2019 2:53 PM Date of : 1970 Admit Type: Inpatient Age: 49 Gender: Female Attending MD: Lavelle Ruiz MD Procedure: ERCP Providers: Lavelle Ruiz MD Referring MD: Jack Montgomeryliashlee Indications: Abnormal intraoperative cholangiogram, Abnormal endoscopic ultrasound of the biliary system, For therapy of bile duct stone(s) Medicines: General Anesthesia Complications: No immediate complications. Estimated Blood Loss: Estimated blood loss: none. Procedure: Pre-Anesthesia Assessment: - Prior to the procedure, a History and Physical was performed, and patient medications, allergies and sensitivities were reviewed. The patient's tolerance of previous anesthesia was reviewed. - The risks and benefits of the procedure and the sedation options and risks were discussed with the patient. All questions were answered and informed consent was obtained. - Patient identification and proposed procedure were verified prior to the procedure by the physician and the nurse. The procedure was verified in the procedure room. - Pre-procedure physical examination revealed no contraindications to sedation. After obtaining informed consent, the scope was passed under direct vision. Throughout the procedure, the patient's blood pressure, pulse, and oxygen saturations were monitored continuously. The scope was introduced through the mouth, and advanced to the duodenum and used to inject contrast into the bile duct. The ERCP was accomplished without difficulty. The patient tolerated the procedure well. Findings: A strip stamp straightener film of the abdomen was obtained. Surgical clips, consistent with a previous cholecystectomy, were seen in the area of the right upper quadrant of the abdomen. One percutaneous drain ending in the Right upper quadrant was seen. The esophagus was successfully intubated under direct vision. The scope was advanced to a normal major papilla in the descending duodenum without detailed examination of the pharynx, larynx and associated structures, and upper GI tract. The upper GI tract was grossly normal. The ventral pancreatic duct was inadvertently cannulated. The guidewire was kept in place to assist in biliary ductal cannulation. A 0.035 inch straight standard wire was passed into the biliary tree. The Fusion OMNI sphincterotome was passed over the guidewire and the bile duct was then deeply cannulated. Contrast was injected. I personally interpreted the bile duct images. Ductal flow of contrast was adequate. Image quality was adequate. Contrast extended to the main bile duct. The main bile duct was moderately dilated. The largest diameter was 9 mm. The lower third of the main bile duct contained one stone. Biliary sphincterotomy was made with a monofilament traction (standard) sphincterotome using ERBE electrocautery. There was no post-sphincterotomy bleeding. The biliary tree was swept with a 12 mm balloon starting at the bifurcation. One stone was removed. No stones remained. Occlusion cholangiogram showed no filling defects or extravasation. Indomethacin 100 mg was given via suppository to decrease the risk of post-ERCP pancreatitis (PEP). Impression: - Choledocholithiasis was found. Complete removal was accomplished by biliary sphincterotomy and balloon extraction. Recommendation: - [facility]. - Advance diet as tolerated. - Recall GI if needed. Lavelle Ruiz MD 10/03/2019 4:53:01 PM This report has been signed electronically. Note Initiated On: 10/03/2019 2:53 PM Number of Addenda: 0 I attest to the content of the Intraoperative Record and orders documented therein, exceptions below {[id number]}
--- NOTE | 2019-10-03 16:58 | Anesthesiology Progress Note ---
Date of Service October 03, 2019 Anesthesia Post Procedure Vital Signs Vital Signs: Temp Pulse Pulse Resp BP Pulse Ox 10/03/19 16:55 76 22 164/82 H 100 10/03/19 16:45 78 20 149/82 H 100 10/03/19 16:35 86 24 148/81 H 99 10/03/19 16:26 97.5 F L 87 24 151/76 H 100 10/03/19 14:57 98.8 F 74 18 143/87 H 98 10/03/19 08:11 98.2 F 59 L 16 111/71 93 10/03/19 04:03 98.2 F 66 16 118/76 92 10/02/19 23:00 98.4 F 71 16 115/72 94 10/02/19 19:06 97.9 F 62 16 135/84 95 Pain Intensity Abdomen: Pain Intensity: 0 Transfer of Care Handoff Completed per policy Notes Mental Status: alert / awake / arousable and participated in evaluation Patient Amnestic to Procedure: Yes Nausea / Vomiting: adequately controlled Pain: adequately controlled Airway Patency, RR, SpO2: stable & adequate BP & HR: stable & adequate Hydration State: stable & adequate Anesthetic Complications: no major complications apparent and Pt Satisfied with anesthetic care
[2019-10-03] MEDS ORDERED: LACTATED RINGER'S 1,000 ML IV ONE (17:13)
--- NOTE | 2019-10-03 20:35 | Hospitalist Progress Note ---
Date of Service October 03, 2019 Assessment & Plan (1) Acute cholecystitis: (1) Acute cholecystitis: status post Laparoscopic Cholecystectomy with Cholangiogram (on 10/02/2019) Choledocholithiasis, status post ERCP, removal of CBD stone 10/03/2019 --Stable overall --Patient requesting solid food, will start with soft diet --Monitor off antibiotics Monitor overnight --Advance diet hopefully by tomorrow (2) Lymph node enlargement: -Ultrasound of abdomen revealed an incidental 16 x 10 x 18 mm probable peripancreatic lymph node --Status post biopsy done on 10/03/2019 Follow-up biopsy results (3) Breast cancer: Per Dr. Chas Mortensen's notes, previous hospitalist: -history of R Breast ca s/p R masectomy with Axillary lymph node dissection and prophylactic left mastectomy -Follows [facility] oncology Dr. Infante -Currently on tamoxifen treatment as outpatient, hold while inpatient per discussion between admitting physician Dr. Taveras and with oncologist Dr. Cory Infante due to increased risk of DVT/PE -Peripancreatic lymph node 16 x 10 x 18 mm noted on ultrasound -status post biopsy done on 10/03/2019, follow-up results (4) Sarcoidosis: -diagnosed via bronchoscopy in 2016, Follows Dr. Farmer, [facility], currently not on active treatment (5) DVT prophylaxis: SCD/TEDS hold tamoxifen given increased risk of DVT/PE until discharge Disposition Anticipate discharge to home tomorrow when cleared by GI service Admission and Anticipated Discharge Date Admission Date: October 02, 2019 Subjective Follow-up for cholecystitis, choledocholithiasis Status post ERCP, removal of CBD stone, pancreatic lymph node biopsy Seen sitting up in bed, comfortable, not in distress States she feels fine overall after procedure, denies nausea or abdominal pain Requesting solid foods Denies chest pain, shortness of breath, dizziness, headaches No other symptoms Review of Systems 2 Review of Systems: All systems reviewed & are unremarkable except as noted in HPI & below Physical Exam Physical Exam: General- oriented x 3, not in distress, speaks in sentences with no effort or accessory muscle use Head- atraumatic Eyes- PERRL, EOMI, anicteric ENT- oropharynx clear Neck- supple, no JVD, no adenopathy, no thyromegaly; carotids +2/2, no bruits appreciated Lungs- clear to auscultation bilaterally, no rales/wheezes Heart- normal rate, regular rhythm; no murmur, no gallop, no rub appreciated Abdomen- normal bowel sounds, nondistended, soft, nontender, no masses or hepatosplenomegaly Extremities- no pretibial edema, no calf tenderness; peripheral pulses intact Neuro- alert, oriented x 3; CN 2-12 grossly intact; motor 5/5 bilaterally;sensation 100% on all extremities; no other gross focal neurologic deficits Skin- warm & dry Results & Data ([facility]) Vital Signs (Past 12 Hours) Vital Signs Temp Pulse Pulse Pulse Resp BP Pulse Ox 10/03/19 20:28 36.7 C 82 16 142/87 H 91 10/03/19 18:31 36.7 C 69 16 137/83 95 10/03/19 17:55 36.9 C 68 16 145/82 H 96 10/03/19 17:25 36.9 C 85 16 148/92 H 95 10/03/19 17:15 36.5 C 74 21 150/85 H 97 10/03/19 17:05 77 24 145/78 H 98 10/03/19 16:55 76 22 164/82 H 100 10/03/19 16:45 78 20 149/82 H 100 10/03/19 16:35 86 24 148/81 H 99 10/03/19 16:26 36.4 C L 87 24 151/76 H 100 10/03/19 14:57 37.1 C 74 18 143/87 H 98 Laboratory Results Laboratory Results - last 24 hr 10/03/19 10/03/19 10/03/19 08:35 08:35 10:29 WBC 6.67 RBC 4.04 L Hgb 12.2 Hct 37.5 MCV 92.8 MCH 30.2 MCHC 32.5 RDW Std Deviation 46.8 H RDW Coeff of Salvatore 13.7 Plt Count 219 MPV 10.4 Immature Gran % (Auto) 0.3 Neut % (Auto) 65.6 Lymph % (Auto) 25.0 [place] % (Auto) 7.3 Eos % (Auto) 1.5 Baso % (Auto) 0.3 Immature Gran # (Auto) 0.02 Neut # (Auto) 4.37 Lymph # (Auto) 1.67 [place] # (Auto) 0.49 Eos # (Auto) 0.10 Baso # (Auto) 0.02 Sodium 140 Potassium 3.6 Chloride 110 H Carbon Dioxide 25 Anion Gap 6.0 BUN 8 Creatinine 1.06 Est Cr Clr Drug Dosing 78.3 Est GFR ( Amer) 72.4 Est GFR (Non-Af Amer) 62.5 BUN/Creatinine Ratio 7.6 L Glucose 81 Calcium 9.1 Total Bilirubin 0.4 Direct Bilirubin 0.1 AST 59 H ALT 103 H Alkaline Phosphatase 74 Total Protein 6.8 Albumin 3.2 L Lipase 168
[2019-10-04] MEDS: MoRPHine SULFATE 4 MG/ML 1 ML CARP\\VIAL IV PRN ×4 (01:00→07:45)
[2019-10-04] MEDS ORDERED: KETOROLAC TROMETHAMINE 15 MG/ML VIAL IV ONE (01:20)
[2019-10-04] MEDS ORDERED: PROMETHAZINE HCL 12.5 MG in SODIUM CHLORIDE 0.9% 50 ML IV PRN (01:21)
[2019-10-04] MEDS: LACTATED RINGER'S 1,000 ML IV SCH ×6 (01:31→22:12)
[2019-10-04] MEDS ORDERED: IOVERSOL 100ml IV PRN (01:55)
[2019-10-04] MEDS ORDERED: OXYCODONE HCL IR 5 MG TAB (IMMEDIATE RELEASE) PO PRN ×2 (02:12→04:55)
[2019-10-04] MEDS ORDERED: LACTATED RINGER'S 1,000 ML IV SCH (04:20)
--- NOTE | 2019-10-04 05:14 | Communication Note ---
Date of Service: October 04, 2019 Worsening epigastric pain of 10/10 overnight as per RN. CT abdomen pelvis initial read: Acute pancreatitis, cannot exclude subtle biliary leak. Minimal intrahepatic biliary ductal dilatation. CBD measuring 6.6 mm. AP Pancreatitis Recent ERCP Bowel rest IVF Will relay to AM provider.
[2019-10-04 05:46] LABS: Basophils # (auto) 0.01 K/uL (0-0.2); Basophils % (auto) 0.1 %; Eosinophils # (auto) 0.04 K/uL (0-0.5); Eosinophils % (auto) 0.4 %; Hematocrit (blood only) 36.1 % (37-47); Hemoglobin 11.8 g/dL (12.0-16.0); Immature Granulocytes # (auto) 0.02 K/uL (0.00-0.02); Immature Granulocytes % (auto) 0.2 %; Lymphocytes # (auto) 0.99 K/uL (1.2-3.4); Lymphocytes % (auto) 10.5 %; Mean Corpuscular Hemoglobin 29.8 pg (25-34); Mean Corpuscular Hgb Conc 32.7 g/dL (32-36); Mean Corpuscular Volume 91.2 fL (80-100); Mean Platelet Volume 10.7 fL (7.4-10.4); Monocytes % (auto) 8.5 %; Neutrophils # (auto) 7.56 K/uL (1.4-6.5); Neutrophils % (auto) 80.3 %; Platelet Count 203 K/uL (130-400); RDW Coefficient of Variation 13.2 % (11.5-14.5); Red Blood Count 3.96 M/uL (4.2-5.4); White Blood Count 9.42 K/uL (4.8-10.8)
--- NOTE | 2019-10-04 06:12 | Surgery Progress Note ---
Date of Service October 04, 2019 Assessment & Plan (1) Bile duct calculus: The patient had undergone an ERCP yesterday for common bile duct stone extraction and at the same time a biopsy of a 1.6 cm peripancreatic node which I spoke with endoscopist and related that the frozen section showed to be metastatic breast cancer Not unusual for patients developed some pancreatitis after instrumentation of the biliary tree At this point we will keep the patient here today to is comfortable I asked her to minimize her oral intake her labs are pending I did not discuss with the patient the frozen section report on the lymph node will await final documentation Present on Admission?: Yes Subjective Patient was complaining of significant abdominal pain 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 evening 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 CAT scan was obtained by the medical service which shows pancreatitis This morning she still has some abdominal distention the pain is pretty much unchanged Physical Exam Physical Exam: She is alert coherent no distress not complaining of any back pain The Jonathan drainage is serous the abdomen is softly distended really nontender Results & Data Vital Signs (Past 12 Hours) Vital Signs Temp Pulse Resp BP Pulse Ox 10/04/19 03:56 36.8 C 69 16 121/81 96 10/03/19 22:55 37.2 C 62 16 144/88 H 96 10/03/19 20:32 36.6 C 76 18 134/75 93 10/03/19 20:28 36.7 C 82 16 142/87 H 91 10/03/19 18:31 36.7 C 69 16 137/83 95 PG Care Time/CCT Total # of Minutes Spent Total Time Spent with Patient: Total time spent is greater than 50% in coordination of care (as documented) at patient's floor/unit and/or counseling patient: Coding Level of Care Code None Diagnoses Bile duct calculus K80.50
[2019-10-04 06:15] LABS: Albumin Level 2.9 gm/dl (3.4-5.0); BUN Creatinine Ratio 7.2 (10-20); Calcium 8.4 mg/dl (8.5-10.1); Creatinine Clr Calc Pharmacy 86.4 ml/min; Est GFR (African American) 81.6; Est GFR (Non-African American) 70.4; Magnesium 1.7 mg/dl (1.8-2.4); Potassium 3.9 mmol/L (3.5-5.1)
[2019-10-04 06:18] LABS: Albumin Globulin Ratio 0.9 (0.9-2); Bilirubin,Total 0.3 mg/dl (0.2-1); Globulin 3.1 gm/dl (2.5-4.0)
--- NOTE | 2019-10-04 07:25 | CT Scan Report ---
ABDOMEN AND PELVIS CT WITH IV CONTRAST CT DOSE: 902.44 mGy.cm HISTORY: Status post cholecystectomy. Mid abdominal pain. Bilateral flank pain. TECHNIQUE: Multiaxial CT images of the abdomen and pelvis were performed following the use of intrave nous contrast. A dose lowering technique was utilized adhering to the principles of ALARA. COMPARISON STUDY: MRCP 10/02/2019. FINDINGS: Trace bilateral pleural effusions. No suspicious lytic or blastic osseous lesions. Mild destini tral intrahepatic bile duct dilatation. The common bile duct is at the upper limits of normal in [place] measuring up to 6.7 mm. Trace fluid and gas within the cholecystectomy bed. There is a right subh epatic percutaneous drain. This favors postoperative change. Mild edema and inflammatory change surro unding the pancreas. Findings favor acute pancreatitis. The main portal vein is patent. No hepatic or splenic masses. The adrenal glands and kidneys are unremarkable. Mild thickening of the second porti on of the duodenum which may be reactive. No retroperitoneal lymphadenopathy. The bladder, uterus, bi lateral adnexa are unremarkable. Trace pelvic fluid is noted. No evidence for bowel obstruction. Norm al appendix. IMPRESSION: 1. Status post cholecystectomy. There is a trace amount of gas and fluid at the resection bed. This f avors recent postoperative change. 2. Mild peripancreatic edema/fat stranding likely representing acute pancreatitis. Recommend correlat ion with pancreatic enzymes. 3. Mild central intrahepatic bile duct dilatation. The common bile duct is at the upper limits of nor mal measuring 6.7 mm. 4. Mild thickening and inflammatory change involving the second portion of duodenum. This could be re active. 5. A right upper quadrant percutaneous drain is noted. 6. Trace bilateral pleural effusions. 7. Trace amount of pelvic free fluid. ACT 112: Negative or not required by law. Electronically signed by: Renny Sánchez M.D. 10/04/2019 7:23 AM
--- NOTE | 2019-10-04 07:41 | Anesthesiology Progress Note ---
Date of Service October 04, 2019 Anesthesia Post Procedure Vital Signs Vital Signs: Temp Pulse Pulse Pulse Resp BP Pulse Ox 10/04/19 07:10 36.9 C 70 16 131/89 98 10/04/19 03:56 36.8 C 69 16 121/81 96 10/03/19 22:55 37.2 C 62 16 144/88 H 96 10/03/19 20:32 36.6 C 76 18 134/75 93 10/03/19 20:28 36.7 C 82 16 142/87 H 91 10/03/19 18:31 36.7 C 69 16 137/83 95 10/03/19 17:55 36.9 C 68 16 145/82 H 96 10/03/19 17:25 36.9 C 85 16 148/92 H 95 10/03/19 17:15 36.5 C 74 21 150/85 H 97 10/03/19 17:05 77 24 145/78 H 98 10/03/19 16:55 76 22 164/82 H 100 10/03/19 16:45 78 20 149/82 H 100 10/03/19 16:35 86 24 148/81 H 99 10/03/19 16:26 36.4 C L 87 24 151/76 H 100 10/03/19 14:57 37.1 C 74 18 143/87 H 98 10/03/19 08:11 36.8 C 59 L 16 111/71 93 Pain Intensity Abdomen: Pain Intensity: 7 Notes Mental Status: alert / awake / arousable and participated in evaluation Patient Amnestic to Procedure: Yes Nausea / Vomiting: adequately controlled Pain: adequately controlled Airway Patency, RR, SpO2: stable & adequate BP & HR: stable & adequate Hydration State: stable & adequate Anesthetic Complications: no major complications apparent and Pt Satisfied with anesthetic care
[2019-10-04] MEDS ORDERED: MAGNESIUM SULFATE / D5W 1 GM/100 ML BAG IV ONE (08:30)
[2019-10-04] MEDS: PANTOprazole 40 MG TAB PO SCH (09:11)
[2019-10-04] MEDS: CHECK SCOPOLAMINE PATCH PLACEMENT SCH (09:11)
[2019-10-04] MEDS: HYDROmorphone INJ 0.5 MG/0.5 ML SYR IV PRN ×4 (09:17→21:04)
--- NOTE | 2019-10-04 09:21 | Hospitalist Progress Note ---
Date of Service Delayed entry Date of service noted below October 04, 2019 Assessment & Plan (1) Acute cholecystitis: (1) Acute cholecystitis: status post Laparoscopic Cholecystectomy with Cholangiogram (on 10/02/2019) Choledocholithiasis, status post ERCP, removal of CBD stone 10/03/2019 --Patient developed abdominal pain overnight, lipase elevated, CT abdomen confirmed pancreatitis Management noted below Acute pancreatitis --N.p.o. Aggressive IV fluids with lactated Ringer's PRN Dilaudid for pain Monitor closely (2) Lymph node enlargement: -Ultrasound of abdomen revealed an incidental 16 x 10 x 18 mm probable peripancreatic lymph node --Status post biopsy done on 10/03/2019 Follow-up biopsy results (3) Breast cancer: Per Dr. Chas Mortensen's notes, previous hospitalist: -history of R Breast ca s/p R masectomy with Axillary lymph node dissection and prophylactic left mastectomy -Follows [facility] oncology Dr. Infante -Currently on tamoxifen treatment as outpatient, hold while inpatient per discussion between admitting physician Dr. Taveras and with oncologist Dr. Cory Infante due to increased risk of DVT/PE -Peripancreatic lymph node 16 x 10 x 18 mm noted on ultrasound -status post biopsy done on 10/03/2019, follow-up results (4) Sarcoidosis: -diagnosed via bronchoscopy in 2016, Follows Dr. Farmer, [facility], currently not on active treatment (5) DVT prophylaxis: SCD/TEDS hold tamoxifen given increased risk of DVT/PE until discharge Disposition Anticipate discharge to home tomorrow when cleared by GI service Admission and Anticipated Discharge Date Admission Date: October 02, 2019 Subjective Follow-up for acute pancreatitis, cholecystitis, choledocho lithiasis seen resting in bed, not in distress Somewhat uncomfortable Reports generalized abdominal pain mostly in the upper quadrants radiating to the back Denies nausea or vomiting No fever or chills No chest pain, shortness of breath, palpitations, dizziness Review of Systems Review of Systems: All systems reviewed & are unremarkable except as noted in HPI & below Physical Exam Physical Exam: General- oriented x 3, not in distress, speaks in sentences with no effort or accessory muscle use Eyes- anicteric Neck- no JVD Lungs- clear breath sounds bilaterally, crackles Heart- normal rate, regular rhythm; no murmurs Abdomen- normal bowel sounds, nondistended, soft, positive mild tenderness in all quadrants Extremities- no pretibial edema, no calf tenderness Neuro- alert, oriented x 3; no gross focal neurologic deficits Skin- warm & dry Results & Data ([facility]) Vital Signs (Past 12 Hours) Vital Signs Temp Pulse Resp BP Pulse Ox 10/04/19 07:10 36.9 C 70 16 131/89 98 10/04/19 03:56 36.8 C 69 16 121/81 96 10/03/19 22:55 37.2 C 62 16 144/88 H 96
--- NOTE | 2019-10-04 10:48 | Gastroenterology Progress Note ---
Date of Service October 04, 2019 Assessment & Plan (1) Acute cholecystitis: (2) Bile duct calculus: Pt is a 49 y/o female admitted with cholelithiasis, cholecystitis, s/p lap cholecystectomy on 10/02/2019. Intraoperative cholangiogram done during her cholecystectomy showed filling defect in distal CBD consistent with a stone. She was taken to OR 10/03/2019 for EUS/ERCP: Two malignant-appearing lymph nodes were visualized in the peripancreatic region and danie hepatis region, FNA done. Choledocholithiasis found, removed, biliary sphincterectomy performed. Overnight she developed RUQ abd pain, nausea. CT abd/pelvis, Lipase obtained showing acute pancreatitis. She is currently receiving LR IVF resuscitation, pain is improved, tolerating sips of water. - OK to continue sips of CL fluids - Continue IVF resusciation with LR - Symptomatic management - MARIANNE drain site leaking, defer to Surgery for management. - Will f/u on FNA/cytology results Admission and Anticipated Discharge Date Admission Date: October 02, 2019 Supervising Physician Co-Signing Physician Notes I performed a history and physical examination of the patient today, including specifically on physical exam - soft abdomen. I have discussed the patient's management with the advanced practitioner. Please refer to the nurse practitioner's note for the documented findings and plan of care. Mild post ERCP pancreatitis. Now feels better and tolerating clear liquid diet. Continue IV Hydration and advance diet tomorrow if she tolerates. Subjective Pt had increased RUQ abd pain, nausea w/o vomiting. CT abd/plevis and Lipase obtained showed mild pancreatitis. She reports abd pain is improved this AM, no more nausea, is passing little flatus. She is tolerating sips of water Review of Systems Review of Systems: All systems reviewed & are unremarkable except as noted in HPI & below Physical Exam Constitutional: WD/WN, vitals as above well groomed, cooperative and comfortable Eyes: PERRL, conjunctivae normal, anicteric sclerae ENMT: external ear and nose normal, oropharynx normal Respiratory: normal respiratory effort, lungs clear to auscultation Cardiovascular: RRR, no murmur, no edema Gastrointestinal (Abdomen): Inspection/Auscultation: + hypoactive bowel sounds Percussion/Palpation: + abdomen tender (RUQ, epigastric) and abdomen soft R MARIANNE drain w serous drainage. Lot of serous fluid leaking from insertion site, dressing wet Skin: no rashes, warm and dry no jaundice Psychiatric: A+Ox3, euthymic affect Lymphatic: no lymphedema Results & Data ([facility]) Vital Signs (Past 12 Hours) Vital Signs Temp Pulse Resp BP Pulse Ox 10/04/19 07:10 36.9 C 70 16 131/89 98 10/04/19 03:56 36.8 C 69 16 121/81 96 10/03/19 22:55 37.2 C 62 16 144/88 H 96
[2019-10-04] MEDS ORDERED: HYDROmorphone INJ 0.5 MG/0.5 ML SYR IV STA (17:42)
[2019-10-04] MEDS ORDERED: POLYETHYLENE (MIRALAX) 17 GM PACK PO STA (22:59)
[2019-10-04] MEDS: DOCUSATE SODIUM/SENNA 50/8.6MG TAB PO SCH (23:22)
[2019-10-05] MEDS: HYDROmorphone INJ 0.5 MG/0.5 ML SYR IV PRN ×8 (00:08→23:37)
[2019-10-05] MEDS: LACTATED RINGER'S 1,000 ML IV SCH ×3 (03:12→14:19)
[2019-10-05 07:32] LABS: Basophils # (auto) 0.01 K/uL (0-0.2); Basophils % (auto) 0.1 %; Eosinophils # (auto) 0.06 K/uL (0-0.5); Eosinophils % (auto) 0.5 %; Hematocrit (blood only) 35.6 % (37-47); Hemoglobin 11.7 g/dL (12.0-16.0); Immature Granulocytes # (auto) 0.03 K/uL (0.00-0.02); Immature Granulocytes % (auto) 0.3 %; Lymphocytes # (auto) 1.07 K/uL (1.2-3.4); Lymphocytes % (auto) 9.3 %; Mean Corpuscular Hemoglobin 30.1 pg (25-34); Mean Corpuscular Hgb Conc 32.9 g/dL (32-36); Mean Corpuscular Volume 91.5 fL (80-100); Mean Platelet Volume 10.4 fL (7.4-10.4); Monocytes # (auto) 1.19 K/uL (0.11-0.59); Monocytes % (auto) 10.4 %; Neutrophils # (auto) 9.11 K/uL (1.4-6.5); Neutrophils % (auto) 79.4 %; Platelet Count 202 K/uL (130-400); RDW Coefficient of Variation 13.5 % (11.5-14.5); RDW Standard Deviation 44.9 fL (36.4-46.3); Red Blood Count 3.89 M/uL (4.2-5.4); White Blood Count 11.47 K/uL (4.8-10.8)
--- NOTE | 2019-10-05 07:38 | Surgery Progress Note ---
Date of Service October 05, 2019 Assessment & Plan (1) Acute cholecystitis: POD 2 lap sergei/ERCP, pancreatitis labs pending, limited clinical progress remove drain soon Subjective no flatus, nausea and bloating continues Physical Exam Gastrointestinal (Abdomen): Inspection/Auscultation: + abdomen distended (mild) and + abdominal surgical drain present (serous drainage) Percussion/Palpation: abdomen soft Results & Data Vital Signs (Past 12 Hours) Vital Signs Temp Pulse Resp BP Pulse Ox 10/05/19 07:10 37.1 C 104 H 16 133/87 92 10/04/19 23:10 37.2 C 93 H 20 132/76 92 PG Care Time/CCT Total # of Minutes Spent Total Time Spent with Patient: Total time spent is greater than 50% in coordination of care (as documented) at patient's floor/unit and/or counseling patient: Coding Level of Care Code None Diagnoses Acute cholecystitis K81.0
[2019-10-05 07:49] LABS: Calcium 8.2 mg/dl (8.5-10.1); Creatinine Clr Calc Pharmacy 110.6 ml/min; Est GFR (Non-African American) 94.9; Potassium 3.7 mmol/L (3.5-5.1)
[2019-10-05] MEDS: PANTOprazole 40 MG TAB PO SCH (08:18)
[2019-10-05] MEDS: DOCUSATE SODIUM/SENNA 50/8.6MG TAB PO SCH ×2 (08:18→20:46)
--- NOTE | 2019-10-05 08:59 | Gastroenterology Progress Note ---
Date of Service October 05, 2019 Assessment & Plan (1) Acute cholecystitis: (2) Bile duct calculus: Pt is a 49 y/o female admitted with cholelithiasis, cholecystitis, s/p lap cholecystectomy on 10/02/2019. Intraoperative cholangiogram done during her cholecystectomy showed filling defect in distal CBD consistent with a stone. She was taken to OR 10/03/2019 for EUS/ERCP: Two malignant-appearing lymph nodes were visualized in the peripancreatic region and danie hepatis region, path showed metastatic breast carcinoma. Choledocholithiasis found, removed, biliary sphincterectomy performed. Overnight she developed RUQ abd pain, nausea. CT abd/pelvis, Lipase obtained showing acute pancreatitis. She is currently receiving LR IVF resuscitation, pain is improved, tolerating sips of water. - FL diet; advance to low fat diet as tolerarted - Reduce IVF rate to 100ml/hr - Symptomatic management - MARIANNE drain site leaking, defer to Surgery for management. - F/U Oncology for metastatic breast carcinoma - No contraindication for DC home by end of day if pt tolerating diet well Admission and Anticipated Discharge Date Admission Date: October 02, 2019 Subjective Pt still w upper abd pain but mostly with motion. Not passing much flatus, no BM. Denies n/v. Lymph node path: metastatic carcinoma, breast Lipase 2400 Review of Systems Review of Systems: All systems reviewed & are unremarkable except as noted in HPI & below Physical Exam 2 Constitutional: WD/WN, vitals as above well groomed, cooperative and comfortable Eyes: PERRL, conjunctivae normal, anicteric sclerae ENMT: external ear and nose normal, oropharynx normal Respiratory: normal respiratory effort, lungs clear to auscultation Cardiovascular: RRR, no murmur, no edema Gastrointestinal (Abdomen): Inspection/Auscultation: normal bowel sounds Percussion/Palpation: + abdomen tender (RUQ, epigastric) and abdomen soft MARIANNE drain R side abd w serosangenous discharge, dressing wet Skin: no rashes, warm and dry no jaundice Psychiatric: A+Ox3, euthymic affect Lymphatic: no lymphedema Results & Data ([facility]) Vital Signs (Past 12 Hours) Vital Signs Temp Pulse Resp BP Pulse Ox 10/05/19 07:10 37.1 C 104 H 16 133/87 92 10/04/19 23:10 37.2 C 93 H 20 132/76 92
[2019-10-05] MEDS: MAGNESIUM SULFATE / D5W 1 GM/100 ML BAG IV SCH ×2 (15:53→17:08)
[2019-10-05] MEDS: ENOXAPARIN INJ 40 MG/0.4 ML SYR SQ SCH (15:54)
--- NOTE | 2019-10-05 19:19 | Hospitalist Progress Note ---
Date of Service October 05, 2019 Assessment & Plan (1) Acute cholecystitis: (1) Acute cholecystitis: status post Laparoscopic Cholecystectomy with Cholangiogram (on 10/02/2019) Choledocholithiasis, status post ERCP, removal of CBD stone 10/03/2019 --Patient developed abdominal pain overnight, lipase elevated, CT abdomen confirmed pancreatitis Management noted below Acute pancreatitis --Still having significant abdominal pain Although lipase level decreased --Patient prefers ice chips and sips of water today Continue aggressive IV fluids with lactated Ringer's Increase PRN Dilaudid for pain, continue Senokot S Monitor closely (2) Lymph node enlargement: -Ultrasound of abdomen revealed an incidental 16 x 10 x 18 mm probable peripancreatic lymph node --Status post biopsy done on 10/03/2019 Follow-up biopsy results: Metastatic lobular carcinoma Follow-up soon with oncologist Dr. Cory Infante (3) Breast cancer: Per Dr. Chas Mortensen's notes, previous hospitalist: -history of R Breast ca s/p R masectomy with Axillary lymph node dis section and prophylactic left mastectomy -Follows [facility] oncology Dr. Infante -Currently on tamoxifen treatment as outpatient, hold while inpatient per discussion between admitting physician Dr. Taveras and with oncologist Dr. Cory Infante due to increased risk of DVT/PE -Peripancreatic lymph node 16 x 10 x 18 mm noted on ultrasound -status post biopsy done on 10/03/2019, per #2 (4) Sarcoidosis: -diagnosed via bronchoscopy in 2016, Follows Dr. Farmer, [facility], currently not on active treatment (5) DVT prophylaxis: Lovenox subcutaneous 40 mg daily hold tamoxifen given increased risk of DVT/PE until discharge Disposition Anticipate discharge to home when medically stable Admission and Anticipated Discharge Date Admission Date: October 02, 2019 Subjective Follow-up for acute pancreatitis, cholecystitis, choledocholithiasis Seen resting in bed sitting up, more comfortable than yesterday Still reports abdominal pain, generalized No fevers or chills No nausea vomiting Positive flatus no BM yet No chest pain, no palpitations, no dizziness, no shortness No other symptoms Review of Systems Review of Systems: All systems reviewed & are unremarkable except as noted in HPI & below Physical Exam Physical Exam: General- oriented x 3, not in distress, speaks in sentences with no effort or accessory muscle use Eyes- anicteric Neck- no JVD Lungs- clear BS bilaterally Heart- normal rate, regular rhythm; no murmurs Abdomen- normal bowel sounds, nondistended, soft, mild tenderness in all quadrants Drain in place, serosanguineous output, no discharge noted Extremities- no pretibial edema, no calf tenderness Neuro- alert, oriented x 3; no gross focal neurologic deficits Skin- warm & dry Results & Data ([facility]) Vital Signs (Past 12 Hours) Vital Signs Temp Pulse Resp BP Pulse Ox 10/05/19 15:04 37.2 C 95 H 18 143/86 H 92 Laboratory Results Laboratory Results - last 24 hr 10/05/19 10/05/19 10/05/19 07:14 07:14 07:14 WBC 11.47 H RBC 3.89 L Hgb 11.7 L Hct 35.6 L MCV 91.5 MCH 30.1 MCHC 32.9 RDW Std Deviation 44.9 RDW Coeff of Salvatore 13.5 Plt Count 202 MPV 10.4 Immature Gran % (Auto) 0.3 Neut % (Auto) 79.4 Lymph % (Auto) 9.3 [place] % (Auto) 10.4 Eos % (Auto) 0.5 Baso % (Auto) 0.1 Immature Gran # (Auto) 0.03 H Neut # (Auto) 9.11 H Lymph # (Auto) 1.07 L [place] # (Auto) 1.19 H Eos # (Auto) 0.06 Baso # (Auto) 0.01 Sodium 136 Potassium 3.7 Chloride 106 Carbon Dioxide 26 Anion Gap 5.0 BUN 5 L Creatinine 0.75 Est Cr Clr Drug Dosing 110.6 Est GFR ( Amer) 110.0 Est GFR (Non-Af Amer) 94.9 BUN/Creatinine Ratio 6.0 L Glucose 78 Calcium 8.2 L Magnesium 1.6 L Lipase 2499 H
[2019-10-06] MEDS: LACTATED RINGER'S 1,000 ML IV SCH ×3 (01:29→20:08)
[2019-10-06] MEDS: HYDROmorphone INJ 0.5 MG/0.5 ML SYR IV PRN ×5 (04:04→18:09)
[2019-10-06] MEDS: OXYCODONE HCL IR 5 MG TAB (IMMEDIATE RELEASE) PO PRN ×2 (08:14→21:38)
--- NOTE | 2019-10-06 09:11 | Surgery Progress Note ---
Date of Service October 06, 2019 Assessment & Plan (1) Acute cholecystitis: oral pain meds not effective yet keep on clears drain with serous drainage but 500cc over 24 hours encourage ambulation Subjective POD #4 a little more pain this AM, switched to oral narcotics taking po poorly, on IVF no fevers and no tachycardia Review of Systems Constitutional: no fever and no chills Respiratory: no cough and no dyspnea Cardiovascular: no chest pain Gastrointestinal: + abdominal pain; no nausea and no vomiting Physical Exam Constitutional: WD/WN, vitals as above Neck: trachea midline Respiratory: normal respiratory effort, lungs clear to auscultation Cardiovascular: RRR, no murmur, no edema Gastrointestinal (Abdomen): Inspection/Auscultation: abdomen normal to inspection and normal bowel sounds Percussion/Palpation: + abdomen tender; no guarding Skin: no rashes, warm and dry Results & Data Vital Signs (Past 12 Hours) Vital Signs Temp Pulse Pulse Resp BP Pulse Ox 10/06/19 08:00 37 C 96 H 18 154/89 H 92 10/05/19 23:41 92 10/05/19 23:35 93 10/05/19 22:51 92 10/05/19 22:50 37.5 C 101 H 16 145/83 H 87 L
[2019-10-06] MEDS: DOCUSATE SODIUM/SENNA 50/8.6MG TAB PO SCH ×2 (09:15→20:11)
[2019-10-06] MEDS: PANTOprazole 40 MG TAB PO SCH (09:15)
[2019-10-06] MEDS: ENOXAPARIN INJ 40 MG/0.4 ML SYR SQ SCH (15:27)
[2019-10-06 18:12] LABS: BUN Creatinine Ratio 6.1 (10-20); Calcium 8.1 mg/dl (8.5-10.1); Creatinine Clr Calc Pharmacy 97.6 ml/min; Est GFR (African American) 94.6; Est GFR (Non-African American) 81.6; Potassium 3.5 mmol/L (3.5-5.1)
--- NOTE | 2019-10-06 20:49 | Hospitalist Progress Note ---
Date of Service delayed entry date of service noted below October 06, 2019 Assessment & Plan (1) Acute cholecystitis: (1) Acute cholecystitis: status post Laparoscopic Cholecystectomy with Cholangiogram (on 10/02/2019) Choledocholithiasis, status post ERCP, removal of CBD stone 10/03/2019 --Patient developed abdominal pain overnight, lipase elevated, CT abdomen confirmed pancreatitis Management noted below Acute pancreatitis --pain gradually improved lipase [id number] to normal --continue IV fluids PRN Dilaudid for pain, continue Senokot S advance diet as tolerated Monitor closely (2) Lymph node enlargement: -Ultrasound of abdomen revealed an incidental 16 x 10 x 18 mm probable peripancreatic lymph node --Status post biopsy done on 10/03/2019 Follow-up biopsy results: Metastatic lobular carcinoma Follow-up soon with oncologist Dr. Cory Infante (3) Breast cancer: Per Dr. Chas Mortensen's notes, previous hospitalist: -history of R Breast ca s/p R masectomy with Axillary lymph node dissection and prophylactic left mastectomy -Follows [facility] oncology Dr. Infante -Currently on tamoxifen treatment as outpatient, hold while inpatient per discussion between admitting physician Dr. Taveras and with oncologist Dr. Cory Infante due to increased risk of DVT/PE -Peripancreatic lymph node 16 x 10 x 18 mm noted on ultrasound -status post biopsy done on 10/03/2019, per #2 (4) Sarcoidosis: -diagnosed via bronchoscopy in 2016, Follows Dr. Farmer, [facility], currently not on active treatment (5) DVT prophylaxis: Lovenox subcutaneous 40 mg daily hold tamoxifen given increased risk of DVT/PE until discharge Disposition Anticipate discharge to home when medically stable Admission and Anticipated Discharge Date Admission Date: October 02, 2019 Subjective ff up s/p cholecystectomy, ERCP, pancreatitis seen resting in chair, not in distress still having generalized discomfort in the abdomen- improving no nausea but appetite is poor no BM yet no other symptoms Review of Systems Review of Systems: All systems reviewed & are unremarkable except as noted in HPI & below Physical Exam Physical Exam: General- oriented x 3, not in distress, speaks in sentences with no effort or accessory muscle use Eyes- anicteric Neck- no JVD Lungs- clear BS BL Heart- normal rate, regular rhythm; no murmurs Abdomen- normal bowel sounds, nondistended, soft, mild tenderness on all quadrants drain in place with serous fluid Extremities- no pretibial edema, no calf tenderness Neuro- alert, oriented x 3; no gross focal neurologic deficits Skin- warm & dry Results & Data ([facility]) Vital Signs (Past 12 Hours) Vital Signs Temp Pulse Resp BP Pulse Ox 10/06/19 15:28 36.8 C 83 18 144/84 H 92 Laboratory Results Laboratory Results - last 24 hr 10/06/19 10/07/19 17:36 04:58 Sodium 135 L 136 Potassium 3.5 3.5 Chloride 104 105 Carbon Dioxide 26 24 Anion Gap 5.0 7.0 BUN 5 L 6 L Creatinine 0.85 0.75 Est Cr Clr Drug Dosing 97.6 110.6 Est GFR ( Amer) 94.6 110.0 Est GFR (Non-Af Amer) 81.6 94.9 BUN/Creatinine Ratio 6.1 L 7.8 L Glucose 86 85 Calcium 8.1 L 8.0 L Magnesium 1.6 L Lipase 189
[2019-10-06] MEDS: TRAMADOL HCL 50 MG TABLET PO PRN (23:13)
[2019-10-07] MEDS: HYDROmorphone INJ 0.5 MG/0.5 ML SYR IV PRN ×2 (00:17→05:19)
[2019-10-07] MEDS: OXYCODONE HCL IR 5 MG TAB (IMMEDIATE RELEASE) PO PRN ×5 (04:26→22:40)
[2019-10-07] MEDS: LACTATED RINGER'S 1,000 ML IV SCH ×2 (05:15→14:34)
[2019-10-07 05:52] LABS: BUN Creatinine Ratio 7.8 (10-20); Creatinine Clr Calc Pharmacy 110.6 ml/min; Est GFR (Non-African American) 94.9; Magnesium 1.6 mg/dl (1.8-2.4); Potassium 3.5 mmol/L (3.5-5.1)
[2019-10-07] MEDS: TRAMADOL HCL 50 MG TABLET PO PRN ×4 (07:39→20:03)
[2019-10-07] MEDS: DOCUSATE SODIUM/SENNA 50/8.6MG TAB PO SCH ×2 (08:38→20:05)
[2019-10-07] MEDS: PANTOprazole 40 MG TAB PO SCH (08:38)
--- NOTE | 2019-10-07 11:12 | Surgery Progress Note ---
Date of Service October 07, 2019 Assessment & Plan (1) Acute cholecystitis: continue supportive care drain still with serous drainage, out when discharged check labs in AM Subjective still having some pain taking po only OK will check labs in AM Review of Systems Constitutional: no fever and no chills Physical Exam Constitutional: WD/WN, vitals as above Eyes: + anicteric sclerae Neck: trachea midline Respiratory: normal respiratory effort, lungs clear to auscultation Cardiovascular: RRR, no murmur, no edema Gastrointestinal (Abdomen): Inspection/Auscultation: abdomen normal to inspection and normal bowel sounds; abdomen not distended Percussion/Palpation: + abdomen tender Skin: no rashes, warm and dry Results & Data Vital Signs (Past 12 Hours) Vital Signs Temp Pulse Resp BP Pulse Ox 10/07/19 07:15 36.9 C 100 H 18 145/82 H 92
[2019-10-07] MEDS: ENOXAPARIN INJ 40 MG/0.4 ML SYR SQ SCH (16:14)
--- NOTE | 2019-10-07 16:26 | Hospitalist Progress Note ---
Date of Service October 07, 2019 Assessment & Plan (1) Acute cholecystitis: (1) Acute cholecystitis: status post Laparoscopic Cholecystectomy with Cholangiogram (on 10/02/2019) Choledocholithiasis, status post ERCP, removal of CBD stone 10/03/2019 --Patient developed abdominal pain overnight, lipase elevated, CT abdomen confirmed pancreatitis Management noted below -- discussed with Dr. Hopkins, induration likely local reaction to drain will monitor closely Acute pancreatitis --pain gradually improved lipase [id number] to normal -- decreased IV fluids PRN Dilaudid for pain, continue Senokot S advance diet as tolerated Monitor closely (2) Lymph node enlargement: -Ultrasound of abdomen revealed an incidental 16 x 10 x 18 mm probable peripancreatic lymph node --Status post biopsy done on 10/03/2019 Follow-up biopsy results: Metastatic lobular carcinoma Follow-up soon with oncologist Dr. Cory Infante (3) Breast cancer: Per Dr. Chas Mortensen's notes, previous hospitalist: -history of R Breast ca s/p R masectomy with Axillary lymph node di ssection and prophylactic left mastectomy -Follows [facility] oncology Dr. Infante -Currently on tamoxifen treatment as outpatient, hold while inpatient per discussion between admitting physician Dr. Taveras and with oncologist Dr. Cory Infante due to increased risk of DVT/PE -Peripancreatic lymph node 16 x 10 x 18 mm noted on ultrasound -status post biopsy done on 10/03/2019, per #2 (4) Sarcoidosis: -diagnosed via bronchoscopy in 2016, Follows Dr. Farmer, [facility], currently not on active treatment (5) DVT prophylaxis: Lovenox subcutaneous 40 mg daily hold tamoxifen given increased risk of DVT/PE until discharge Disposition Anticipate discharge to home when medically stable Admission and Anticipated Discharge Date Admission Date: October 02, 2019 Subjective ff up for acute sergei, pancreatitis seen resting in bedside chair, not in distress states abdominal pain is improving does report tenderness about the drain no nausea, chills no shortness of breath, chest pain, dizziness no other symptoms Review of Systems Review of Systems: All systems reviewed & are unremarkable except as noted in HPI & below Physical Exam Physical Exam: General- oriented x 3, not in distress, speaks in sentences with no effort or accessory muscle use Eyes- anicteric Neck- no JVD Lungs- clear breath sounds bilaterally Heart- normal rate, regular rhythm; no murmurs Abdomen- normal bowel sounds, nondistended, soft (+) small area of induration above drain, no erythema/warmth, moderate tenderness Extremities- no pretibial edema, no calf tenderness Neuro- alert, oriented x 3; no gross focal neurologic deficits Skin- warm & dry Results & Data ([facility]) Vital Signs (Past 12 Hours) Vital Signs Temp Pulse Resp BP Pulse Ox 10/07/19 15:05 37.2 C 94 H 16 140/85 91 10/07/19 07:15 36.9 C 100 H 18 145/82 H 92
[2019-10-07] MEDS: MAGNESIUM CHLORIDE 64MG DELAYED REL TAB PO SCH ×2 (16:46→20:04)
[2019-10-08] MEDS: TRAMADOL HCL 50 MG TABLET PO PRN ×3 (04:24→14:44)
[2019-10-08] MEDS: LACTATED RINGER'S 1,000 ML IV SCH (04:25)
[2019-10-08] MEDS: OXYCODONE HCL IR 5 MG TAB (IMMEDIATE RELEASE) PO PRN ×2 (07:00→11:22)
[2019-10-08 07:04] LABS: Basophils # (auto) 0.02 K/uL (0-0.2); Basophils % (auto) 0.2 %; Eosinophils # (auto) 0.22 K/uL (0-0.5); Eosinophils % (auto) 2.1 %; Hematocrit (blood only) 31.2 % (37-47); Hemoglobin 10.5 g/dL (12.0-16.0); Immature Granulocytes # (auto) 0.03 K/uL (0.00-0.02); Immature Granulocytes % (auto) 0.3 %; Lymphocytes # (auto) 1.21 K/uL (1.2-3.4); Lymphocytes % (auto) 11.8 %; Mean Corpuscular Hemoglobin 30.6 pg (25-34); Mean Corpuscular Hgb Conc 33.7 g/dL (32-36); Mean Platelet Volume 10.4 fL (7.4-10.4); Monocytes % (auto) 9.7 %; Neutrophils % (auto) 75.9 %; Platelet Count 206 K/uL (130-400); RDW Coefficient of Variation 13.2 % (11.5-14.5); RDW Standard Deviation 43.6 fL (36.4-46.3); Red Blood Count 3.43 M/uL (4.2-5.4); White Blood Count 10.28 K/uL (4.8-10.8)
[2019-10-08 07:07] VITALS: BP 142/89; PULSE 102; TEMP 98.4; O2SAT 92
[2019-10-08 07:35] LABS: Albumin Level 1.9 gm/dl (3.4-5.0); BUN Creatinine Ratio 5.2 (10-20); Calcium 7.8 mg/dl (8.5-10.1); Creatinine Clr Calc Pharmacy 120.2 ml/min; Est GFR (African American) 120.1; Est GFR (Non-African American) 103.7; Magnesium 1.7 mg/dl (1.8-2.4); Potassium 3.5 mmol/L (3.5-5.1)
[2019-10-08 07:38] LABS: Albumin Globulin Ratio 0.6 (0.9-2); Bilirubin,Total 0.3 mg/dl (0.2-1); Globulin 3.2 gm/dl (2.5-4.0); Total Protein 5.1 gm/dl (6.4-8.2)
--- NOTE | 2019-10-08 08:08 | Surgery Progress Note ---
Date of Service October 08, 2019 Assessment & Plan (1) Acute cholecystitis: Patient can be discharged today we will remove the drain before she leaves instructions given it is okay to drive if she does not take any prescription analgesics which I feel she does not need she may shower we will see her back in the office in 1 week The path report on lymph nodes I discussed with the patient as other providers have also and she follows with Dr. Infante the oncologist at seen him a year ago in January and make an appointment for her to follow-up with him No restrictions on her activity as tolerated Present on Admission?: Yes Subjective Feels much better minimal abdominal discomfort passing flatus no bowel movement yet tolerating a diet Physical Exam 2 Physical Exam: Alert coherent comfortable Abdomen benign continues to have serous drainage Jonathan drain amylase along with on the drain output Results & Data Vital Signs (Past 12 Hours) Vital Signs Temp Pulse Resp BP Pulse Ox 10/08/19 07:06 36.9 C 102 H 19 142/89 H 92 10/07/19 22:54 37.3 C 104 H 16 118/77 93 PG Care Time/CCT Total # of Minutes Spent Total Time Spent with Patient: Total time spent is greater than 50% in coordination of care (as documented) at patient's floor/unit and/or counseling patient: Coding Level of Care Code None Diagnoses Acute cholecystitis K81.0
[2019-10-08] MEDS: PANTOprazole 40 MG TAB PO SCH (08:54)
[2019-10-08] MEDS: MAGNESIUM CHLORIDE 64MG DELAYED REL TAB PO SCH (08:55)
[2019-10-08] MEDS: DOCUSATE SODIUM/SENNA 50/8.6MG TAB PO SCH (08:55)
--- NOTE | 2019-10-08 15:38 | Hospitalist Progress Note ---
Date of Service delayed entry date of service as noted below October 08, 2019 Assessment & Plan (1) Acute cholecystitis: (1) Acute cholecystitis: status post Laparoscopic Cholecystectomy with Cholangiogram (on 10/02/2019) Choledocholithiasis, status post ERCP, removal of CBD stone 10/03/2019 -- followed by Gen Surg and GI -- pain gradually improved ff up with Gen Surg in 1 week Acute pancreatitis --Patient developed abdominal pain overnight after ERCP, lipase elevated, CT abdomen confirmed pancreatitis -- given vigorous IV fluids, placed on bowel rest, PRN pain meds --pain gradually improved lipase improve from [id number] to normal -- given PRN Oxycodone, Tramadol for pain -- ff up with GI in 1-2 weeks (2) Lymph node enlargement, Metastatic Lobular Carcinoma -Ultrasound of abdomen revealed an incidental 16 x 10 x 18 mm probable peripancreatic lymph node --Status post biopsy done on 10/03/2019 with ERCP biopsy results: Metastatic lobular carcinoma Follow-up soon with oncologist Dr. Cory Infante (3) Breast cancer: Per Dr. Chas Mortensen's notes, previous hospitalist: -history of R Breast ca s/p R masectomy with Axillary lymph node dissection and prophylactic left mastectomy -Follows [facility] oncology Dr. Infante -Peripancreatic lymph node 16 x 10 x 18 mm noted on ultrasound -status post biopsy done on 10/03/2019, per #2 - discussed with Dr. Infante, may resume Tamoxifen (4) Sarcoidosis: -diagnosed via bronchoscopy in 2016, Follows Dr. Farmer, [facility], currently not on active treatment (5) DVT prophylaxis: Lovenox subcutaneous 40 mg daily hold tamoxifen given increased risk of DVT/PE until discharge Disposition d/c home ff up with PCP in 1 week ff up with Gen Surg in 1 week ff up with Oncologist Dr. Infante in 1 week ff up with GI in 2 weeks plan of care discussed with patient in detail and at length all questions answered she is understanding, agreeable, comfortable with plan of care Admission and Anticipated Discharge Date Admission Date: October 02, 2019 Subjective ff up for cholecystitis, post op, pancreatitis seen resting in bed, comfortable states she feels much better overall abdominal pain improving, tolerating diet better denies SOB, chest pain, palpitations, dizziness ambulating better no other symptoms states she is ready and would like to be discharged no other symptoms Physical Exam Physical Exam: General- oriented x 3, not in distress, speaks in sentences with no effort or accessory muscle use Eyes- anicteric Neck- no JVD Lungs- clear breath sounds bilaterally Heart- normal rate, regular rhythm; no murmurs Abdomen- normal bowel sounds, nondistended, soft, nontender surgical wound healing well Extremities- no pretibial edema, no calf tenderness Neuro- alert, oriented x 3; no gross focal neurologic deficits Skin- warm & dry Results & Data ([facility]) Vital Signs (Past 12 Hours) Vital Signs Temp Pulse Pulse Resp BP Pulse Ox 10/08/19 08:29 36.9 C 102 H 96 H 19 142/89 H 92 10/08/19 07:06 36.9 C 102 H 19 142/89 H 92 Laboratory Results all noted and reviewed
--- NOTE | 2019-10-10 13:50 | Discharge Summary ---
Date of Service October 10, 2019 Admission HPI Per Admitting Provider This is a 49 yr old F who has significant PMH of Breast Cancer and sarcoidosis who presents to ED 2/2 to epigastric abdominal pain off and on x 1 week. at bedside. Pain located in epigastrum with radiation to chest, last 2-3 hours before resolving, worse after meals and liquids, rated 8/10 when present, currently asymptomatic. Initially felt sx likely 2/2 to heart burn. She takes protonix daily. Tried zantac with out relief. Was seen by PCP today and has RUQ US which revealed acute cholecystitis so she was referred to ED. Since last week she has had 2-3 episodes of emesis with abdominal pain, nausea and 2-3 episodes of diarrhea. Last BM this a.m. which was normal for her. Denies f/c/s, dizziness, lightheaded, chest pain, palpitations, SOB, dysuria, increased urg/freq with urination. Overall had had an appetite but eat and drinking less due to pain. Has tried OTC tylenol, nsaids and zantac w/o relief. In ED she remained hemodynamically stable. LFT WNL AST 41, ALT 41, T bili 0.4, alk phos 72, wbc 8.82, H&H 13.3 and 40.1, cr 1.07. She received IV zofran and IV morphine in ED with relief of sx. Admission Exam Per Admitting Provider Physical Exam: Constitutional: WD/WN, F, vitals as above, NAD, sitting up in bed, pleasant, conversing easily Head: Normocephalic, Atraumatic Eyes: PERRL, conjunctivae normal, anicteric sclerae ENMT: external ear and nose normal, oropharynx normal Neck: trachea midline, no thyromegaly normal visual inspection Respiratory: normal respiratory effort, lungs clear to auscultation, no wheeze, rales, rhonchi. Normal insp/exp effort, no accessory muscle use Cardiovascular: RRR, no murmur, no edema Vessels: no JVD or carotid bruit Chest: normal inspection of chest Abdomen: normal bowel sounds, soft, nontender, no hepatosplenomegaly Musculoskeletal: no cyanosis or clubbing, extremities motor strength 5/5 Skin: no rashes, warm and dry normal turgor Neurologic: PERRL, EOMI, accommodation nl, no face palsy, no dysarthria CN's II-XI intact bilaterally and moves all extremities Psychiatric: A+Ox3, euthymic affect Lymphatic: no cervical or axillary lymphadenopathy : deferred Principal Diagnosis ACUTE CHOLECYSTITIS, CHOLEDOCHOLITHIASIS, S/P CHOLECYSTECTOMY, S/P ERCP, ACUTE PANCREATITIS Discharge Exam General- oriented x 3, not in distress, speaks in sentences with no effort or accessory muscle use Eyes- anicteric Neck- no JVD Lungs- clear breath sounds bilaterally Heart- normal rate, regular rhythm; no murmurs Abdomen- normal bowel sounds, nondistended, soft, nontender surgical wound healing well Extremities- no pretibial edema, no calf tenderness Neuro- alert, oriented x 3; no gross focal neurologic deficits Skin- warm & dry Discharge Data Allergies Allergy/AdvReac Type Severity Reaction Status Date / Time No Known Allergies Allergy Verified 10/10/19 10:37 Consultations 10/01/19 17:40 Consult General Surgery Routine 10/02/19 13:11 Consult Gastroenterology Routine Procedures Performed Operation Date: 10/02/19 11:15 Actual Procedures p Laparoscopic Cholecystectomy with Cholangiogram(Not Applicable) - Dex Vargas MD Operation Date: 10/03/19 14:25 Actual Procedures p Endoscopic Retrograde Cholangiopancreatogram, Sphincterotomy(Not Applicable) - Lavelle Ruiz MD s Endoscopic Ultrasonography Upper(Not Applicable) - Lavelle Ruiz MD s Esophagogastroduodenoscopy - Lavelle Ruiz MD Ordered Studies 10/02/19 07:07 MR MRCP Routine FINDINGS: [employer] images demonstrate bilateral breast implants. The heart is upper limits of normal in size. The imaged lower chest is unremarkable. The spleen, pancreas, adrenal glands, and kidneys appear grossly unremarkable. Aorta and IVC are within normal limits as visualized. There are a few nonspecific prominent and mildly enlarged periaortic lymph nodes measuring up to 1.3 x 1.1 cm on image 20 of series 5. No bowel obstruction or bowel wall thickening. No ascites. A 7 mm nodular focus of the abdominal right lower quadrant may correlate with a colonic diverticulum. Mildly distended stone filled gallbladder measures up to 7.0 cm in length. A 6 mm stone is noted within the gallbladder neck. The common bile duct is mildly dilated at 8 mm. There is smooth tapering of the distal common bile duct without definite choledocholithiasis. Mild intrahepatic biliary ductal dilation. No pancreatic ductal dilation or pancreatic divisum. There is no gallbladder wall thickening. Trace pericholecystic fluid. IMPRESSION: 1. Stone filled and mildly distended gallbladder is noted with trace pericholecystic fluid. Findings are concerning for developing acute cholecystitis. 2. Mildly dilated common bile duct with mild intrahepatic biliary ductal dilation. No definite choledocholithiasis identified. 3. Nonspecific mildly prominent and enlarged periportal lymph nodes. 10/02/19 10:00 FL cholangiogram OR Routine 10/03/19 12:00 FL ERCP biliary ductal Routine 10/03/19 14:51 US upper EUS PACS images Routine 10/04/19 01:20 CT abd pelvis IV con only Urgent COMPARISON STUDY: MRCP 10/02/2019. FINDINGS: Trace bilateral pleural effusions. No suspicious lytic or blastic osseous lesions. Mild central intrahepatic bile duct dilatation. The common bile duct is at the upper limits of normal in caliber measuring up to 6.7 mm. Trace fluid and gas within the cholecystectomy bed. There is a right subhepatic percutaneous drain. This favors postoperative change. Mild edema and inflammatory change surrounding the pancreas. Findings favor acute pancreatitis. The main portal vein is patent. No hepatic or splenic masses. The adrenal glands and kidneys are unremarkable. Mild thickening of the second portion of the duodenum which may be reactive. No retroperitoneal lymphadenopathy. The bladder, uterus, bilateral adnexa are unremarkable. Trace pelvic fluid is noted. No evidence for bowel obstruction. Normal appendix. IMPRESSION: 1. Status post cholecystectomy. There is a trace amount of gas and fluid at the resection bed. This favors recent postoperative change. 2. Mild peripancreatic edema/fat stranding likely representing acute p ancreatitis. Recommend correlation with pancreatic enzymes. 3. Mild central intrahepatic bile duct dilatation. The common bile duct is at the upper limits of normal measuring 6.7 mm. 4. Mild thickening and inflammatory change involving the second portion of duodenum. This could be reactive. 5. A right upper quadrant percutaneous drain is noted. 6. Trace bilateral pleural effusions. 7. Trace amount of pelvic free fluid. Hospital Course (1) Acute cholecystitis: (1) Acute cholecystitis: status post Laparoscopic Cholecystectomy with Cholangiogram (on 10/02/2019) Choledocholithiasis, status post ERCP, removal of CBD stone 10/03/2019 -- followed by Gen Surg and GI -- pain gradually improved ff up with Gen Surg in 1 week Acute pancreatitis --Patient developed abdominal pain after ERCP, lipase elevated, CT abdomen confirmed pancreatitis -- given vigorous IV fluids, placed on bowel rest, PRN pain meds --pain gradually improved lipase improve from [id number] to normal -- given PRN Oxycodone, Tramadol for pain -- ff up with GI in 1-2 weeks (2) Lymph node enlargement, Metastatic Lobular Carcinoma -Ultrasound of abdomen revealed an incidental 16 x 10 x 18 mm probable peripancreatic lymph node --Status post biopsy done on 10/03/2019 with ERCP biopsy results: Metastatic lobular carcinoma Follow-up soon with oncologist Dr. Cory Infante (3) Breast cancer: Per Dr. Chas Mortensen's notes, previous hospitalist: -history of R Breast ca s/p R masectomy with Axillary lymph node dissec tion and prophylactic left mastectomy -Follows [facility] oncology Dr. Infante -Peripancreatic lymph node 16 x 10 x 18 mm noted on ultrasound -status post biopsy done on 10/03/2019, per #2 - discussed with Dr. Infante, may resume Tamoxifen (4) Sarcoidosis: -diagnosed via bronchoscopy in 2016, Follows Dr. Farmer, [facility], currently not on active treatment (5) DVT prophylaxis: Lovenox subcutaneous 40 mg daily hold tamoxifen given increased risk of DVT/PE until discharge Disposition d/c home ff up with PCP in 1 week ff up with Gen Surg in 1 week ff up with Oncologist Dr. Infante in 1 week ff up with GI in 2 weeks plan of care discussed with patient in detail and at length all questions answered she is understanding, agreeable, comfortable with plan of care Total Time Total Time Spent Total Time Spent (In Minutes): > 30 MINUTES Discharge Plan Discharge Items Patient Disposition: Home - Self-Care Reason For Visit: ACUTE CHOLECYSTITIS Discharge Diagnosis: ACUTE CHOLECYSTITIS, STONE IN THE COMMON BILE DUCT, ACUTE PANCREATITIS Activity: Per Instructions section Activity Comment: Resume activity gradually as tolerated Lifting: No more than 10 pounds Bathing Comment: may shower; no soaking in tubs Exercise/Sports: Wait until after follow-up appointment Driving/Machine Use: No driving until reevaluated and allowed by primary care physician; no driving while taking oxycodone and/or tramadol Non-emergency contact: Primary Care Provider and Surgeon Call non-emergency contact if: you have any medication questions, your symptoms worsen, your pain is not controlled, your pain is worsening, your pain is unusual for you, you have a fever, your temperature is above 101.5, your wound has increased redness, your wound has increased drainage and your wound pain has increased Follow-up/Referrals: Dex Vargas MD [Surgeon] - 10/10/19 9:40 am () Susie White MD [Primary Care Provider] - Cory Infante MD [Surgeon] - (Dr. Ballard will call you with a follow-up appt.) Lavelle Ruiz MD [Hospitalist] - Diet: Regular and Low Fat Addtl Attending Provider Instructions: Please review your new medication list and follow instructions carefully. No driving while taking oxycodone or tramadol. Drink plenty of water. Always stay well-hydrated. Call your primary care physician or the surgeon, Dr. Vargas, if with worsening of symptoms, Including increasing abdominal pain, fevers or chills, nausea or vomiting, constipation, weakness, leg swelling, shortness of breath. Please follow-up with your primary care physician in 1 week. The clinic will be calling you for the appointment. Follow-up with general surgeon Dr. Vargas in 1 week. Please call his clinic for an appointment. Follow-up with oncologist Dr. Cory Infante in 1 to 2 weeks. Please call his clinic for an appointment. Follow-up with business broker Dr. Whit Wong in 2 weeks. His clinic will be calling you for the appointment Pending Studies at Discharge: Yes Studies:: surgical pathology; repeat blood work (CBC, Basic Metabolic Profile, Magnesium) on follow-up with your primary care physician this week Stand-Alone Forms: My [email or web address], Opioid Pain Management, Smoking Cessation Medications and DC Order Prescriptions: New oxycodone 10 mg tablet 10 mg PO Q4H PRN (Reason: SEVERE PAIN) Qty: 20 RF: 0 tramadol 50 mg Tablet 50 mg PO Q4H PRN (Reason: pain) Qty: 20 RF: 0 sennosides-docusate sodium [Senokot-S] 8.6-50 mg Tablet 1 tab PO BID 10 Days Qty: 20 RF: 2 magnesium chloride [Mag 64] 64 mg Tablet,Delayed Release (Dr/Ec) 64 mg PO BID 7 Days Qty: 14 RF: 1 Continued pantoprazole 40 mg tablet,delayed release (DR/EC) 40 mg PO DAILY RF: 0 tamoxifen 20 mg Tablet 20 mg PO DAILY RF: 0 No Action Calcium 600 + D(3) 600 mg calcium- 200 unit capsule 2 cap PO BID RF: 0 Discharge Orders: Discharge Order (Routine); Ordered 10/08/19 Ordered By: Jack Berkowitz/Other Patient Handouts: Surgery Prevent DVT After, Cooking Tips Low Fat, Gallbladder Surg, Cholecystectomy, Pancreatitis, Flavor Add Low Fat Meals, Eating Healthy Go, ED Diet Low Fat Admission Data Admit Date/Time: 10/02/19 14:59 Attending Provider: Jack Dinero Admit Provider: Raul Taveras Primary Care Provider: Susie White Other Providers: Dex Vargas ; Lavelle Ruiz Other Interventions: Discharge Summary Assessment (RN) Last Done: 10/08/19 15:53 DC Date/Time DO NOT enter until pt leaves facility: 10/08/19 16:18
== END 2019-10-08 16:18 | disposition home or self-care (01) | DRG 417 ==
LOC: ED 15:45 → 3W 15:45 → SUATTDRO 17:32 → 3W 17:56 → SUATTDRO 10-02 14:59

== ENCOUNTER 2023-07-03 02:37 | Inpatient (IN) ==
[2023-07-03] MEDS ORDERED: ONDANSETRON INJ 2 MG/ML 2 ML VIAL IV STA ×2 (02:45→02:52)
[2023-07-03] MEDS ORDERED: FAMOTIDINE 20MG IV PUSH 20 MG/5 ML SYR IV STA (02:45)
[2023-07-03] MEDS ORDERED: SODIUM CHLORIDE 0.9% 1,000 ML IV STA (02:45)
--- OUTSIDE RECORDS SUMMARY | 2023-07-03 02:45 | External Medical Summary | Summary of Care ---
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) Procedures PET CT SKULL BASE TO MID-THIGH Cory Infante MD [address] [address] Referral ID Status Reason Start Date Expiration Date V isits Requested Visits Authorized [id number] Pending Review 06/10/2023 [id number] Encounter Details Date Type Department Care Team (Late st Contact Info) Description 06/10/2023 Orders Only Hematology/Oncology [facility] [address] [address] Cory Infante MD [address] [address] Malignant neoplasm of overlapping sites of both breasts in female, estrogen receptor positive *; 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); 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 100 Tab 11 09/08/2012 Active traZODone HCl 50 MG Oral Tablet (Desyrel)Indications:Ot her insomnia Take 1 Tablet by mouth at bedtime. 90 Tablet 3 10/12/2022 Active Letrozole 2.5 MG Oral Tablet (Femara)Indications:Mal ignant neoplasm of overlapping sites of both breasts in female, estrogen receptor positive,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),Liver lesion,Intra-abdominal lymphadenopathy Take 1 Tablet by mouth in the morning. 90 Tablet 3 10/12/2022 Active Kisqali (400 MG Dose) 200 MG Oral Tablet Therapy Pack (Ribociclib Succ (400 MG Dose))Indications:Malig nant neoplasm of overlapping sites of both breasts in female, estrogen receptor positive Take 400 mg by mouth in the morning. For 21 days on, 7 days off of a 28 day cycle. 42 Each 5 03/02/2023 Active Omeprazole 20 MG Oral Capsule Delayed Release (PriLOSEC) Take 1 Capsule by mouth in the morning and 1 Capsule in the evening. 60 Capsule 5 06/07/2023 Active documented as of this encounter (statuses as of 06/10/2023) Active Problems Problem Noted Date Diagnosed Date Family hx of melanoma 05/26/2023 Overview: Sister Stage 3a chronic kidney disease 06/16/2020 Overview: Per CKD protocol - Per CKD protocol Adjustment insomnia 01/24/2020 Liver lesion 10/19/2019 Intra-abdominal lymphadenopathy 10/19/2019 Metastatic cancer to intra-abdominal lymph nodes 10/12/2019 Microscopic hematuria 12/04/2014 Overview: Insignificant. 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 ADVANCE DIRECTIVE INFORMATION 05/25/2012 Malignant neoplasm of overla pping sites of both breasts in female, estrogen receptor positive Cancer Staging:Clinical:Stage IIB(T3, N0, M0) - Unsigned Pathologic:Stage IIIC(T3, N3a, cM0) - Unsigned Overview: invasive ductal Sarcoidosis documented as of this encounter (statuses as of 06/10/2023) Resolved Problems Problem Noted Date Diagnosed Date Resolved Date Neutropenia 01/24/2020 11/10/2020 Kidney disease, chronic, sta ge III (GFR 30-59 ml/min) 01/14/2020 06/19/2020 Overview: Per CKD protocol Encounter for antineoplastic chemotherapy 05/19/2012 12/27/2017 Encounter for examination fo r normal comparison and control in clinical research program 05/16/2012 08/15/2013 Overview: Renamed per the Centers for Medicare and Medicaid billing requirements to include Clinical Trial.gov number. Diagnosis changed due to Research Module. Go to Snapshot for study details. Encounter for examination fo r normal comparison and control in clinical research program 05/16/2012 02/26/2014 Overview: RESEARCH HEM/ONC FOLLOW UP CARE Renamed per the Centers for Medicare and Medicaid billing requirements to include Clinical Trial.gov number. Trial participant as of: Project #: [id number] PI Name: Cory Infante MD PI CRC Name: Molly Chowdhury [facility] Contact PI or PERSONAL SUPPORT WORKER regarding any serious medical event, if new Rx given, ER visit, hospitalization, or billing question Diagnosis changed due to Research Module. Go to Snapshot for study details. Encounter for examination fo r normal comparison and control in clinical research program 05/16/2012 06/03/2016 Overview: Diagnosis description adjusted per Research Compliance Office. RESEARCH HEM/ONC FOLLOW UP CARE Renamed per the Centers for Medicare and Medicaid billing requirements to include Clinical Trial.gov number. Trial participant as of: Project #: [id number] PI Name: Cory Infante MD PI CRC Name: Molly Chowdhury [facility] Contact PI or PERSONAL SUPPORT WORKER regarding any serious medical event, if new Rx given, ER visit, hospitalization, or billing question Diagnosis changed due to Research Module. Go to Snapshot for study details. 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 10/13/2019 documented as of this encounter (statuses as of 06/10/2023) Immunizations Name Administration Dates Next Due COVID-19 mRNA, LNP-s, No Pre serve, 2-Dose Series (Moderna) 02/02/2022,05/11/2021,10/04/2020,08/30 Covid-19, Mrna, Lnp-s, Pf, B ivalent, 50 Mcg, IM, 12 yrs and above (Moderna) 07/28/2022 Pneumococcal Conjugate Vacc, 13 Valent (Prevnar) 05/26/2020 Pneumococcal Polysaccharide PPV23 (Pneumovax) 10/01/2021 SEASONAL INFLUENZA, PF, 6 M & Above, IM , (FLULAVAL or FLUZONE) 06/17/2022,10/01/2021,05/26/2020 Seasonal Influenza Virus Vac cine, Unspecified Formulation 06/17/2022,10/01/2021,05/26/2020,06/01 Seasonal Influenza, Split, I IV3, With Preserve, Inj 06/08/2019 TDAP (age 10 and older)(Boostrix) 11/02/2013 Zoster Vaccine Recombinant (Shingrix) 01/06/2023 ,10/28/2022 documented as of this encounter Social History Tobacco Use Types Packs/Day Years Used Date Smoking Tobacco: Never Smokeless Tobacco: Never Alcohol Use Standard Drinks/Week Comments Yes 0 (1 standard drink = 0.6 oz pur e alcohol) occasional PHQ-2 Answer Date Recorded PHQ Adult Total Score 0 10/28/2022 Hunger Vital Sign Answer Date Recorded Within the past 12 months, y ou worried that your food would run out before you got the money to buy more. Never true 10/29/19 23 Within the past 12 months, t he food you bought just didn't last and you didn't have money to get more. Never true 10/28/2022 Sex and Gender Information Value Date Recorded Sex Assigned at Female 04/12/2019 8:14 AM EDT Gender Identity Female 04/12/2019 8:14 AM EDT Sexual Orientation Straight 10/28/2022 9: 19 AM EDT Job Start Date Occupation Industry Not on file Not on file Not on file documented as of this encounter Progress Notes * Cory Infante MD - 06/10/2023 4:49 PM EDT She had biopsy from the stomach which showed small foci of metastatic adenocarcinoma consistent with breast primary. I spoke with her on the phone, she says that she had some abdominal pain after eating and so she had a upper GI endoscopic which showed some nonbleeding gastric ulcer which was biopsied She says that she is going for MRI of the abdomen next week on I would like to proceed with PET-CT scan for further evaluation of the breast cancer recurrence. documented in this encounter Plan of Treatment Upcoming Encounters Date Type Department Care Team (Late st Contact Info) Description 06/15/2023 9:45 AM EST Pharmacy Pharmacy Hematology Oncology [facility] [address] [place] [address] [facility] [place] Hem/Onc [address] [place] [address] 06/16/2023 2:30 PM EST Imaging Radiology [address] [place] [address] 06/16/2023 3:15 PM EST Imaging Radiology [address] [place] [address] 08/23/2023 9:30 AM EST Imaging Radiology [address] [facility] [place] [address] 08/30/2023 3:15 PM EST Office Visit Hematology/Oncology [facility] [place] [address] [place] [address] Cory Infante MD [address] [place] [address] 12/26/2023 11:00 AM EDT Office Visit Urology, [facility] [address] [facility] [place] [address] Charles Galvan MD [address] [place] [address] 07/24/2024 11:00 AM EST Office [address] [address] Donita Cornejo PA-C [address] [place] [address] [place] [address] Scheduled Orders Name Type Priority Associated Diagnoses Orde r Schedule PET CT SKULL BASE TO MID-THIGH Medical Imaging Routine Malignant neoplasm of overlapping sites of both breasts in female, estrogen receptor positive 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) Ordered: 06/10/2023 Scheduled Procedures Name Priority Associated Diagnoses Date/Ti me COLONOSCOPY FLEXIBLE PROXIMA L DIAGNOSTIC Recall History of colonic polyps Health Maintenance Due Date Last Done Comments Hepatitis B (1 of 3 - 3-dose series) 1972 HIV Screening 1987 Hepatitis C Screening 1990 COVID-19 Vaccine ( season) 2023 07/28/2022, 02/02/2022, 05/11/2021, Additional history exists Influenza Vaccine (FLU shot) (#1) 2023 06/17/2022, 06/17/2022, 10/01/2021, Additional history exists GFR 10/26/2023 04/27/2023, 01/08, 12/01/2022, Additional history exists Albumin/Creatinine Ratio 10/29/2023 10/28/2022, 02/2022 Depression Screening 10/29/2023 10/28/2022 DTaP,Tdap,and Td Vaccines (2 - Td or Tdap) 11/03/2023 11/02/2013 CKD PHOS USE SMARTSET 38935 12/02/2023/01/2023, 10/12/2021, 02/07/2020 CKD HGB USE SMARTSET 10238 04/27/202404/27, 04/27/2023, 02/04/2023, Additional history exists Diabetes Screening 04/27/2026 04/27/2023, 0 02/04/2023, 12/01/2022, Additional history exists Pneumococcal Vaccine: Pediatrics (0 to 5 Years) and At-Risk Patients (6 to 64 Years) (3 - PPSV23 or PCV20) 10/01/2026 10/01/2021, 05/26/2020 Lipid Panel 12/02/2027 12/01/2022, 03/02/2022, 11/03/2020, Additional history exists COLONOSCOPY-EVERY 5 YRS AGES 18-100 05/09/2028 05/09/2023, 05/09/2023 Zoster Vaccines Completed 01/06/2023, 10/28/2022 Colonoscopy Discontinued 05/09/2023, 05/09/2023 Colorectal Cancer Screening Discontinued Cologuard Discontinued Fecal Occult Blood Test Discontinued GARDASIL-HPV IMMUNIZATION SERIES Aged Out No longer eligible based on patient's age to complete this topic MENINGOCOCCAL (MENACTRA/MENVEO) Aged Out No longer eligible based on patient's age to complete this topic Sigmoidoscopy Discontinued documented as of this encounter Medical Devices Implanted Type Area Orthopedic Assistant Device Identifier Shelf Expiration Date Model / Serial / Lot Implant Hi Prof Gel 750cc - [id number] Implanted:Qty: 1 on 07/02/2013 at OR [facility] [place] Left: Breast [employer] 04/01/2014 [id number] / [id number] / [id number] documented as of this encounter Visit Diagnoses Diagnosis Malignant neoplasm of overlapping sites of both breasts in female, estrogen receptor positive- Primary 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) Secondary and unspecified malignant neoplasm of lymph nodes of axilla and upper limb 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) Secondary and unspecified malignant neoplasm of intra-abdominal lymph nodes documented in this encounter Advance Directives Latest Code Status on File Code Status Date Activated Date Inactivated Comments Full Code 01/14/2014 8:52 AM 01/14/2014 4:20 PM This or daisy reflects the patients wishes and were consensually agreed upon. Code Status History Code Status Date Activated Date Inactivated Comments Full Code 01/14/2014 5:37 AM 01/14/2014 8:52 AM This or daisy reflects the patients wishes and were consensually agreed upon. Full Code 07/02/2013 2:20 PM 07/03/2013 2:05 PM Thi s order reflects the patients wishes and were consensually agreed upon. Question Answer Comments Discussion of Advance Directives occurred with: Not Discussed Care Teams Admission Discharge Rn Relationship Specialty Start Date End Date Susie White MD [address] [place] [address] PCP - General Internal Medicine 03/02/12 documented as of this encounter
--- OUTSIDE RECORDS SUMMARY | 2023-07-03 02:45 | External Medical Summary | Summary of Care ---
Author Name Unknown Organization [facility] Address [address] [place] [address] Phone [phone] Care Team Providers Care Security Management Specialist Name Role Phone Susie White MD Primary Care Provider [phone] Reason for Visit * Reason Onset Date Comments Test Results 06/14/2023 Encounter Details Date Type Department Care Team (Late st Contact Info) Description 06/14/2023 Telephone Hematology/Oncology Treatment, [place] [address] [place] [address] Cory Infante MD [address] [place] [address] Test Results Allergies No known active allergiesdocumented as of this encounter (statuses as of 06/14/2023) Medications Medication Sig Dispensed Refills Start Date [...] Tablet Therapy Pack (Ribociclib Succ (400 MG Dose))Indications:Shiv latham neoplasm of overlapping sites of both breasts [...] as of this encounter (statuses as of 06/14/2023) Active Problems Problem Noted Date Diagnosed Date [...] as of this encounter (statuses as of 06/14/2023) Resolved Problems Problem Noted Date Diagnosed Date [...] Infante MD PI CRC Name: Molly Chowdhury [facility] Contact PI or FURNACE ROOM SUPERVISOR regarding any serious medical event, if new [...] Infante MD PI CRC Name: Molly Chowdhury [facility] Contact PI or FURNACE ROOM SUPERVISOR regarding any serious medical event, if new Rx given, ER visit, hospitalization, or billing question Diagnosis changed due to Research Module. Go to Snapshot for study details. 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 10/13/2019 documented as of this encounter (statuses as of 06/14/2023) Immunizations Name Administration Dates Next Due COVID-19 [...] money to buy more. Never true 10/29/19 Within the past 12 months, t he [...] on file documented as of this encounter Miscellaneous Notes * Telephone Encounter - Genesis Honeycutt OSA - 06/14/2023 8:23 AM EST Called patient, no answer. Left message to call back to schedule. Will call patient again later today/tomorrow. * Telephone Encounter - Jacqueline Velasquez RN - 06/14/2023 8:[address] Infante: "She had biopsy from the stomach which showed [...] further evaluation of the breast cancer recurrence. " MRI is scheduled for 06/16/23. PET is scheduled for 07/04/23. Scheduling: please call patient to schedule a follow up appt with Dr Infante for after PET to review results. Thanks! documented in this encounter Plan of Treatment Upcoming Encounters Date Type Department Care Team (Late st Contact Info) Description 06/15/2023 9:45 AM EST Pharmacy Pharmacy Hematology Oncology [address] [address] [facility] [place] [facility], [facility] Hem/Onc [address] [place] [address] 06/16/2023 2:30 PM EST Imaging Radiology [address] [place] [address] 06/16/2023 3:15 PM EST Imaging Radiology [address] [place] [address] 07/04/2023 7:45 AM EST Imaging Radiology [address], [address] [place] [address] 08/23/2023 9:30 AM EST Imaging Radiology [address] 132 [facility] [place] [address] 08/30/2023 3:15 PM EST Office Visit Hematology/Oncology [place]aque[place] [address] [place] [address] Cory Infante MD [address] [place] [address] 12/26/2023 11:00 AM EDT Office Visit [facility], [facility] [place] [address] Charles Galvan MD [address] [place] [address] 07/24/2024 11:00 AM EST [place] [id number] [facility] [address] Donita Cornejo PA-C [address] [place] [address] [place] [phone] Scheduled Procedures Name Priority Associated Diagnoses Date/Ti [...] Tdap) 11/03/2023 11/02/2013 CKD PHOS USE SMARTSET 19426 12/02/2023 04/01/2023, 10/12/2021, 02/07/2020 CKD HGB USE SMARTSET 23662 04/27/202404/27, 04/27/2023, 02/04/2023, Additional history exists Diabetes [...] this encounter Medical Devices Implanted Type Area Shoe Parts Molder Device Identifier Shelf Expiration Date Model / Serial / Lot Implant Hi Prof Gel 750cc - [id number] Implanted:Qty: 1 on 07/02/2013 at OR [facility] [place] Left: Breast [employer]ENTOR DARVIN 04/01/2014 [id number] / [id number] / [id number] documented as of this encounter Advance Directives Latest Code Status [...] Directives occurred with: Not Discussed Care Teams Security Management Specialist Relationship Specialty Start Date End Date Susie White MD [address] [facility] [place] [address] PCP - General Internal Medicine 03/02/12 documented as of this encounter
--- OUTSIDE RECORDS SUMMARY | 2023-07-03 02:45 | External Medical Summary | Summary of Care ---
Author Name Unknown Organization [facility] Address [address] [place] [address] Phone [phone] Care Team Providers Care Senior Housekeeper Name Role Phone Susie White MD Primary Care Provider [phone] Reason for Visit * Reason Comments NEW PATIENT Referred for full sk in exam, no concerns * Evaluate & Treat - Unlimited Visits (Within 30 days (routine)) - Closed Specialty Diagnoses / Procedures Referred By Crystal chandler Referred To Contact Dermatology Diagnoses Skin cancer screening Family history of skin cancer Susie White [facility] [address] [facility] [address] Referral ID Status Reason Start Date Expiration Date V isits Requested Visits Authorized [id number] Closed Specialty Services Required 10/28/[phone] Encounter Details Date Type Department Care Team Description 05/26/2023 [facility] [place] [address] Donita Cornejo PA-C [address] [place] [address] [place] [address] Family hx of melanoma*; Skin exam, screening for cancer; Upotn angioma; Lentigines; Multiple nevi Allergies No known active allergiesdocumented as of this encounter (statuses as of 05/26/2023) Medications Medication Sig Dispensed Refills Start Date End Date Status Calcium 600 MG Oral TabletIndications:Vitami n D deficiency Take by mouth. 100 Tab 11 09/08/2012 Active traZODone HCl 50 MG Oral Tablet (Desyrel)Indications:Oth er insomnia Take 1 Tablet by mouth at bedtime. 90 Tablet 3 10/12/2022 Active Letrozole 2.5 MG Oral Tablet (Femara)Indications:Shefali gnant neoplasm of overlapping sites of both breasts in female, estrogen receptor positive,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),Liver lesion,Intra-abdominal lymphadenopathy Take 1 Tablet by mouth in the morning. 90 Tablet 3 10/12/2022 Active Kisqali (400 MG Dose) 200 MG Oral Tablet Therapy Pack (Ribociclib Succ (400 MG Dose))Indications:Malign ant neoplasm of overlapping sites of both breasts in female, estrogen receptor positive Take 400 mg by mouth in the morning. For 21 days on, 7 days off of a 28 day cycle. 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 ADVANCE DIRECTIVE INFORMATION 05/25/2012 Malignant neoplasm of overla pping sites of both breasts in female, estrogen receptor positive Cancer Staging:Clinical:Stage IIB(T3, N0, M0) - Unsigned Pathologic:Stage IIIC(T3, N3a, cM0) - Unsigned Overview: invasive ductal Sarcoidosis documented as of this encounter (statuses as of 05/26/2023) Resolved Problems Problem Noted Date Resolved Date Neutropenia 01/24/2020 11/10/2020 Kidney disease, chronic, stage III (GFR 30-59 ml /min) 01/14/2020 06/19/2020 Overview: Per CKD protocol Encounter for antineoplastic chemotherapy 201112/27/2017 Encounter for examination fo r normal comparison [...] Infante MD PI [facility] Name: Molly Chowdhury [facility] Contact PI or MILITARY EXCHANGE WIRELESS MANAGER regarding any serious medical event, if new [...] Infante MD [facility] Name: Molly Chowdhury [facility] Contact PI or MILITARY EXCHANGE WIRELESS MANAGER regarding any serious medical event, if new Rx given, ER visit, hospitalization, or billing question Diagnosis changed due to Research Module. Go to Snapshot for study details. 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 documented as of this encounter (statuses as of 05/26/2023) Immunizations Name Administration Dates Next Due COVID-19 [...] = 0.6 oz pur e alcohol) occasional Food Insecurity Answer Date Recorded Within the past 12 months, y ou worried that your food would run out before you got money to buy more. Never true 10/28/2022 Within the past 12 months, t he food you bought just didn't last and you didn't have money to get more. Never true 10/28/2022 Sex Assigned at Date Recorded Female 04/12/2019 8:14 AM E DT Job Start Date Occupation Industry Not on file Not on file Not on file documented as of this encounter Patient Instructions * Patient Instructions* Donita Cornejo PA-C - 05/26/2023 10:03 AM EDT SUNSCREEN USE AND SUN PROTECTION: 1. The best protection is sun avoidance. Seek shade if you can, especially between 10am to 4pm (peak sun hours). 2. Use sunscreen with an SPF (Sun Protection Factor - the number on most sunscreen bottles) of 30 or more that protects from Ultraviolet A (UVA) and Ultraviolet B (UVB) wavelength light (strongly recommend SPF 50). This is referred to as broad spectrum sun protection because it protects from most wa velengths in both spectrums of UVA and UVB light. Unfortunately, even though the protection is broad it is not complete, therefore making sun avoidance the best protection. UVB and UVA have both beenimplicated in causing skin cancers. Older sunscreens only protected from UVB and sunscreens with added UVA protection should contain Titanium dioxide, Zinc oxide, or Avobenzone. Other oil free, non-comedogenic lotion with SPF 30 or greater is fine. 3. Use sun protection if outside for 15 minutes or more. Apply 20-30 minutes before going out and reapply every 1-2 hours. No sunscreen is truly water ''proof'' and it will wash away with sweat, swimming and rubbing. 4. Wear tightly woven, loose fitting (cooler) long sleeved clothing, UV-blocking sun glasses (eyes need protection as well) and wide-brimmed hatwear (no straw hats with holes because light still getsthrough). Strongly recommended *Neutrogena Pure and Free Baby SPF 60 (have separate face and body lotions) orCeraVe AM facial lotion (with SPF 30). If looking for non toxic alternatives-look for non-alfredo particle zinc. Product examples; Think sport, Think baby, Chidi, Serviceful, [employer], [place] baby. "Baby" products can be used for all ages. documented in this encounter Progress Notes * Donita Cornejo PA-C - 05/26/2023 9:57 AM EDT SUBJECTIVE: HPI: Shante Cordoba is a 52 year old female seen at the request of Susie White MD for evaluation and treatment of full skin exam. Vulvar exams q 2 ago performed, no vulvar discoloration and/or lesions to be assessed per pt. + Tanning bed history (years ago). - Blistering sunburns. No new or changing lesions, per pt. Principal Associate Documentation Patient offered wooling machine operator and declined. REVIEW OF SYSTEMS: SKIN: No other new or changing moles. HEME/LYMPH: No new or enlarging lumps or bumps. CONSTITUTIONAL: No nausea, vomiting, fevers, chills, diarrhea. No recent unintended weight loss, night sweats, appetite or malaise. RESP: negative MSK/EXT: Negative or as per HPI GI: negative CV: Negative or as per HPI Rest of systems are negative or as per HPI SKIN CANCER HX: NONE Reviewed, same day as visit, [facility] Dermatology lab work(s)/pathology report(s) as well as thosesent by referring provider prior to seeing pt. Past Medical History: Diagnosis Date Breast cancer (HCC) invasive ductal Hematuria, microscopic 2015 intermittent resolved now Sarcoidosis FAMILY HISTORY: Skin CA: unknown skin cancer (possibly non-melanoma) in maternal grandmother and melanoma sister(s) Skin Disorders: none SOCIAL HISTORY: Social History Tobacco Use Smoking status: Never Smokeless tobacco: Never Substance Use Topics Alcohol use: Yes Comment: occasional Vaping/E-Cigarette Use Vaping/E-Cigarette Substances Vaping/E-Cigarette Devices MEDICA TIONS: Current Outpatient Medications Medication Sig Dispense Refill Calcium 600 MG Oral Tablet Take by mouth. 100 Tab 11 traZODone HCl 50 MG Oral Tablet (Desyrel) Take 1 Tablet by mouth at bedtime. 90 Tablet 3 Letrozole 2.5 MG Oral Tablet (Femara) Take 1 Tablet by mouth in the morning. 90 Tablet 3 Kisqali (400 MG Dose) 200 MG Oral Tablet Therapy Pack (Ribociclib Succ (400 MG Dose)) Take 400 mg by mouth in the morning. For 21 days on, 7 days off of a 28 day cycle. 42 Each 5 No current facility-administered medications for this visit. ALLERGY: Patient has no known allergies. OBJECT NASRIN: GEN: alert, no distress, appears oriented, pleasant, and cooperative. SKIN: Detailed exam of hair, face including lids and lips, neck, chest, abdomen, back, bilateral upper ext. (arm, hand, fingers), bilateral lower ext. (leg, foot, toes), palpation of scalp, fingernails, toenails, inguinal areas, groin (mons pubis), buttocks, and anus completed: 1. Trunk/bilat arms and legs-About 130 total; 2-5mm light and light-medium brown macules mostly. 2. Face/neck/trunk/bilat arms and legs-Many well defined light to medium brown homogenous stellate macules. 3. Scalp/trunk-Few scattered bright red to purple well defined 1-3mm macules and papules. ASSESS MENT/PLAN: 1. Nevi on trunk/bilat arms and legs-no tx needed, pt given reassurance and written education aboutdiagnosis. Skin cancer brochure given and ABCDE's discussed with patient. Annual full body skin examination (unless I recommended otherwise), self-examination, and sun protection (SPF 30+ daily to sun exposed areas, with reapplication every 1-2 hours when out in sun for long periods of time) advised and discussed. Recommended sooner follow up for new or changing lesions. These changes include rapid enlargement, changes in color or shape or symptoms, bleeding, or other concerns. The common features and behavior of non-melanoma skin cancers (e.g. BCC/SCC) as well as the ABCDEs and ugly duckling features of melanoma were also reviewed. 2. Lentigines on face/neck/trunk/bilat arms and legs-no tx needed, pt given reassurance. 3. Angiomas on scalp/trunk-no tx needed, pt given reassurance. Patient alone today. Photo(s) of #1-3 taken, pt verbally consented to having photo(s) taken. Follow-up: 1 year for full skin exam Photos and chart reviewed by Dr. Hansel Morrow. Presum ed diagnoses, expected natural histories, and management options discussed with the patient at length. Questions were addressed and anticipatory guidance provided. They were instructed to contact me if additional questions, concerns, or problems develop in the interim. -There were no barriers to learning and no other pain was related to today's visit. The patient and/or person accompanying patient demonstrates understanding of the visit and treatment. Donita Cornejo PA-C 05/26/2023 9:58 AM Ref: SUSIE WHITE[[id number]] [address] [facility] [place] [address] (office) [phone] (fax) PCP: SUSIE WHITE [address] [facility] [place] [address] [phone] documented in this encounter Nursing Notes * Val Pérez LPN - 05/26/2023 10:01 AM EDT Patient identified by full name and date of . Chief Complaint Patient presents with NEW PATIENT Referred for full skin exam, no concerns documented in this encounter Plan of Treatment Upcoming Encounters Date Type Specialty Care Team Description 06/07/2023 Hospital Encounter Endoscopy Kelsey Goldstein, DO [address] [place] [id number] 06/07/2023 Surgery Endoscopy Kelsey Goldstein, [address] [place] [id number] ESOPHAGOGASTRODUODENOSCOPY (EGD), FLEXIBLE, TRANSORAL, DIAGNOSTIC 06/15/2023 Pharmacy [facility] [place] [place], [facility] Hem/Onc [address] [place] [address] 06/16/2023 Imaging Radiology 06/16/2023 Imaging Radiology 08/23/2023 Imaging Radiology 08/30/2023 Office Visit [facility] [address] [facility] [address] 12/26/2023 Office Visit Urology Charles Galvan MD [address] [place] [place] [address] 07/24/2024 Office Visit Dermatology Donita Cornejo PA-C [address] [place] [address] [place] [address] Scheduled Procedures Name Priority Associated Diagnoses Date/Ti me ESOPHAGOGASTRODUODENOSCOPY ( EGD), FLEXIBLE, TRANSORAL, DIAGNOSTIC Epigastric pain 06/07/2023 11:45 AM EDT Health Maintenance Due Date Last Done Comments Hepatitis B (1 of 3 - 3-dose series) 1972 HIV Screening 1987 Hepatitis C Screening 1990 Cologuard 2017 Fecal Occult Blood Test 2017 Sigmoidoscopy 2017 COVID-19 Vaccine ( season) 2023 07/28/2022, 02/02/2022, 05/11/2021, Additional history exists Influenza Vaccine (FLU shot) (#1) 2023 06/17/2022, 06/17/2022, 10/01/2021, Additional history exists GFR 10/26/2023 04/27/2023, 01/08, 12/01/2022, Additional history exists Albumin/Creatinine Ratio 10/29/2023 10/28/2022, 03/0 02/2022 Depression Screening 10/29/2023 10/28/2022 DTaP,Tdap,and Td Vaccines (2 - Td or Tdap) 11/03/2023 11/02/2013 CKD PHOS USE SMARTSET [id number] 12/02/2023 04/2 01/2023, 10/12/2021, 02/07/2020 CKD HGB USE SMARTSET 00688 04/27/202404/27, 04/27/2023, 02/04/2023, Additional history exists Diabetes Screening 04/27/2026 04/27/2023, 0 02/04/2023, 12/01/2022, Additional history exists Pneumococcal Vaccine: Pediatrics (0 to 5 Years) and At-Risk Patients (6 to 64 Years) (3 - PPSV23 or PCV20) 10/01/2026 10/01/2021, 05/26/2020 Lipid Panel 12/02/2027 12/01/2022, 03/0 02/2022, 11/03/2020, Additional history exists Colonoscopy 05/09/2033 05/09/2023, 05/09/2023 Colorectal Cancer Screening 05/09/2033 Zoster Vaccines Completed 01/06/2023, 10/28/2022 GARDASIL-HPV IMMUNIZATION SERIES Aged Out No longer eligible based on patient's age to complete this topic MENINGOCOCCAL (MENACTRA/MENVEO) Aged Out No longer eligible based on patient's age to complete this topic documented as of this encounter Medical Devices Implanted Type Area Truck Sales Manager Device Identifier Shelf Expiration Date Model / Serial / Lot Implant Hi Prof Gel 750cc - [id number] Implanted:Qty: 1 on 07/02/2013 at OR [facility] [place] Left: Breast MENTOR DARVIN 04/01/2014 [id number] / [id number] / [id number] documented as of this encounter Visit Diagnoses Diagnosis Family hx of melanoma- Primary Family history of other specified malignant neoplasm Skin exam, screening for cancer Screening for malignant neoplasm of the skin [place] angioma Nevus, non-neoplastic Lentigines Other dyschromia Multiple nevi Benign neoplasm of skin, site unspecified Epigastric pain Abdominal pain, epigastric documented in this encounter Advance Directives Latest [...] Directives occurred with: Not Discussed Care Teams Senior Housekeeper Relationship Specialty Start Date End Date Susie White MD [address] [facility] [place] [address] PCP - General Internal Medicine 03/02/12 documented as of this encounter
--- OUTSIDE RECORDS SUMMARY | 2023-07-03 02:45 | External Medical Summary | Summary of Care ---
Author Name Unknown Organization [facility] Address [address] [place] [address] Phone [phone] Care Team Providers Care Junior Graphic Designer Name Role Phone Susie Ochoa MD Primary Care Provider [phone] Reason for Referral * Precert (Within 10 days (routine)) - Pending Review Specialty Diagnoses / Procedures Referred By Crystal chandler Referred To Contact Radiology Diagnoses History of intussusception S/p small bowel obstruction Procedures MRI PELVIS W WO CONTRAST MRI ABDOMEN W WO CONTRAST Gaudencio Norris CRNP [address] [place] [address] Referral ID Status Reason Start Date Expiration Date V isits Requested Visits Authorized [id number] Pending Review 05/20/2023 999 999 * Precert (Within 10 days (routine)) - Pending Review Specialty Diagnoses / Procedures Referred By Crystal chandler Referred To Contact Radiology Diagnoses History of intussusception S/p small bowel obstruction Procedures MRI ABDOMEN W WO CONTRAST MRI PELVIS W WO CONTRAST Gaudencio Norris CRNP [address] [place] [address] Referral ID Status Reason Start Date Expiration Date V isits Requested Visits Authorized [id number] Pending Review 05/20/2023 999 999 Reason for Visit * Reason Comments NEW PATIENT Small bowel obstruct ion * Evaluate & Treat - Unlimited Visits (Within 30 days (routine)) - Pending Review Specialty Diagnoses / Procedures Referred By Crystal chandler Referred To Contact Gastroenterology Diagnoses SBO (small bowel obstruction) (HCC) Intussusception of small bowel (HCC) Susie Ochoa MD [address] [place] [address] Referral ID Status Reason Start Date Expiration Date Visits Requested Visits Authorized [id number] Pending Review Specialty Services Required 04/27/2023 999 999 Encounter Details Date Type Department Care Team Description 05/13/2023 Office Visit Gastroenterology, [facility] [address] [place] [address] Gaudencio Norris CRNP [address] [place] [address] Epigastric pain*; History of intussusception; S/p small bowel obstruction Allergies No known active allergiesdocumented as of this encounter (statuses as of 05/13/2023) Medications Medication Sig Dispensed Refills Start Date [...] as of this encounter (statuses as of 05/13/2023) Active Problems Problem Noted Date Stage 3a chronic kidney disease 06/16/20 Overview: [...] as of this encounter (statuses as of 05/13/2023) Resolved Problems Problem Noted Date Resolved Date [...] Cory Infante MD PI CRC Name: Molly LIND Contact PI or OCEAN FISHING GUIDE regarding any serious medical event, if new Rx given, ER visit, hospitalization, or billing question Diagnosis changed due to Research Module. Go to Snapshot for study details. Encounter for examination fo r normal comparison and control in clinical research program 05/16/2012 06/03/2016 Overview: Diagnosis description adjusted per Research Compliance Office. RESEARCH HEM/ONC FOLLOW UP CARE Renamed per the [facility] for Medicare and Medicaid billing requirements to include Clinical Trial.gov number. Trial participant as of: Project #: [id number] PI Name: Cory Infante MD PI CRC Name: Molly Pintolandry [facility] Contact PI or OCEAN FISHING GUIDE regarding any serious medical event, if new Rx given, ER visit, hospitalization, or billing question Diagnosis changed due to Research Module. Go to Snapshot for study details. 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 documented as of this encounter (statuses as of 05/13/2023) Immunizations Name Administration Dates Next Due COVID-19 [...] Date Smoking Tobacco: Never Smokeless Tobacco: Never Tobacco Cessation:Counseling Given: Not Answered Alcohol Use Standard Drinks/Week Comments Yes 0 [...] on file documented as of this encounter Last Filed Vital Signs Vital Sign Reading Time Taken Comments Blood Pressure 118/78 05/13/2023 12:53 PM EDT Pulse 72 05/13/2023 12:53 PM EDT Temperature 36.6 C (97.8 F) 05/13/2023 1 2:53 PM EDT Respiratory Rate 18 05/13/2023 12:5 3 PM EDT Oxygen Saturation 98% 05/13/2023 12: 53 PM EDT Inhaled Oxygen Concentration - - Weight 82.4 kg (181 lb 11.2 oz) 023 12:53 PM EDT Height 170.2 cm (5' 7") 05/13/2023 12:5 3 PM EDT Body Mass Index 28.46 05/13/2023 12:53 PM EDT documented in this encounter Progress Notes * JAKE Lau - 05/13/2023 12:38 PM EDT Consult requested by Ref: SUSIE OCHOA[[id number]] [address] [place] [address] (office) [phone] (fax) CC: Epigastric discomfort; f/u SBO HPI: Recall that Ms. Shante Cordoba is a 52 yr old female pt of Dr. Susie Ochoa w a hx of sarcoidosis, CKD3, HLD, stage 3 breast cancer (dx'ed 2011, mets to lymph in 2019 on kisqali , letrozole)S/P bilat mastectomies. She is also post ERCP for stones, then experienced post ERCP pancreatitis (all in 2019). She was hospitalized a few weeks ago at [facility] for SBO (likely secondary to adhesive dx per imaging),seen by surgery, treated conservatively and discharged on 04/24/23. She was referred for f/u SBO also w mention of intussusception in February 2023. Between these episodes, the only symptoms she typicallyhas is diarrhea that is cyclical w chemo. Earlier this week, she underwent a colonoscopy w normal findings. Since the SBO and currently, symptoms are, "a slight pain, discomfort" in the epigastric area occurring soon after dinner each evening, lasting up to about 30 minutes. This doesn't occur after eatingyogurt for breakfast or small lunch (apple and almond butter). Denies any typical reflux symptoms. No blood in BMs. No black tarry BMs. No blood in the emesis during the SBO. No progressive weight loss. CTAP w IV contrast 04/21/2023:. 1. High-grade small bowel obstruction with transition point within the right mid abdomen, likely secondary to small bowel adhesions. There is associated bowel wall thickening with interloop edema andsmall volume of ascites. 2. No pneumatosis or pneumoperitoneum. 3. Mild bilateral hydronephrosis with suggested ascending infection on the left. 4. Cholecystectomy. 5. Normal appendix CTAP 02/09/23: 1. Trace free fluid in the pelvis, new since 06/09/2022. 2. Small bowel small bowel intussusception in the left lower quadrant without small bowel obstruction. Although this may be transient, underlying lymph node, polyp, or mass as lead point cannot be excluded. Recommend correlation with patient's symptoms. 3. No evidence of metastatic disease in the chest. 4. Urothelial enhancement in the left renal pelvis. Consider correlation with urinalysis to evaluate for infection. Colonoscopy 05/09/23: - One 5 mm polyp at 20 cm proximal to the anus, removed with a cold snare, other normal. Renal ultrasound 05/11/2023: 1. Mild dilation of the left renal collecting system. No shadowing calculi. 2. Minimal right pelviectasis. 3. Pre and postvoid bladder volumes described above. EGD in 2019: normal. ROS: + hot flashes No lightheadedness, dizziness No fevers, chills No vision loss, eye pain, redness No oral ulcers No chest pain, palpitations, syncope,edema No cough, shortness of breath, exertional dyspnea No rashes or other skin lesions No new joint pain, swelling, myalgias No bleeding tendencies or excessive bruising A total of 12 systems were reviewed, all others (-). ALLERGIES: Review of patient's allergies indicates: No Known Allergies PMH/PSH/Soc Hx reviewed, significant for: Past Medical History: Diagnosis Date Breast cancer (HCC) invasive ductal Hematuria, microscopic 2015 intermittent resolved now Sarcoidosis Past Surgical History: Procedure Laterality Date BREAST CAPSULECTOMY, PERIPROSTHETIC 07/02/2013 PERIPROSTHETIC CAPSULECTOMY BREAST performed by Delio Chan MD at OR [facility] BREAST RECONSTRUCTION 04/21/12 I 04/21/2012 mmediate reconstruction of bilateral breasts with adjustable implant to be utilized for expansion and acellular dermal matrix 04/21/12 Dr. Chan at [facility] BRONCHOSCOPY, DIAGNOSTIC N/A 01/28/2016 BRONCHOSCOPY DIAGNOSTIC WITH OR WITHOUT WASHING performed by Bill Farmer MD at ENDOSCOPY [facility] COLONOSCOPY, DIAGNOSTIC (RECTUM) 05/09/2023 COLONOSCOPY FLEXIBLE PROXIMAL DIAGNOSTIC performed by Raheem Hagen MD at ENDOSCOPY [facility] DILATION AND CURETTAGE (D&C) 06/2008 D&C at [place], [place] EGD, FLEXIBLE, DIAGNOSTIC 11/23/2018 gastritis/ESOPHAGOGASTRODUODENOSCOPY (EGD), FLEXIBLE, TRANSORAL, DIAGNOSTIC performed by Lavelle Ruiz MD at ENDOSCOPY [facility] EGD, FLEXIBLE,W/ENDOSCOPIC US 10/03/2019 lymph node, peripancreatic bx - metastatic cancer, IPMN / INPT [facility] ERCP 10/03/2019 choledocholithiasis / INPT [facility] EXPLORATION OF ABDOMEN 01/14/2014 EXPLORATORY LAPAROTOMY performed by Danae Ceron MD at OR [facility] LAPAROSCOPY; CHOLECYSTECTOMY 09/2019 LAPAROSCOPY;RMV ADNEXAL STRUCT 01/14/2014 LAPAROSCOPIC OOPHORECTOMY AND OR SALPINGECTOMY performed by Danae Ceron MD at [facility] MASTECTOMY, MODIFIED RADICAL 04/21/12 04/21/2012 Right mastectomy with right axillary lymph node dissectiona nd left prophylactic mastectomy 04/21/12 Dr. Carbajal at [facility] MASTECTOMY,RADICAL 2012 OTHER (INFORMATION) 11/1986 Left ankle surgery, [place], [place] OVARY/TUBAL CANCR RESEC W/SALPINGO-OOPHEREC 01/14/2014 REMOV GLO ROBI DEQUAN ACC DEV,WITH 02/18/14 Removal of A port left chest 02/18/14 Dr. Carbajal in the clinic REMOVAL OF OVARY/OVIDUCT(S) 2013 preventive for breast cancer , uterus and cervix intact REPLACE TISSUE HOSTESS CASHIER 07/02/2013 REPLACEMENT EXPANDERS WITH PERMANENT PROSTHESIS performed by Delio Chan MD at [facility] SKIN TISSUE REARRANGEMENT 07/02/2013 SKIN TISSUE REARRANGEMENT performed by Delio Chan MD at [facility] SKIN TISSUE REARRANGEMENT, ADD-ON 07/02/2013 SKIN TISSUE REARRANGEMENT, ADD-ON performed by Delio Chan MD at [facility] TOTAL ABD HYSTERECTOMY W/WO REMOVAL OF TUBE(S) 01/14/2014 lap BSO , uterus intact Social History Socioeconomic History Marital status: Number of children: 2 Occupational History 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 Comment: [employer] 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 Employer: [employer] Tobacco Use Smoking status: Never Smokeless tobacco: Never Substance and Sexual Activity Alcohol use: Yes Comment: occasional Drug use: No Social Determinants of Health Food Insecurity: No Food Insecurity Worried About Running Out of Food in the Last Year: Never true Ran Out of Food in the Last Year: Never true Family history reviewed and significant for: Family History Problem Relation Age of Onset Alzheimer's disease Mother 63 both AD and vascular Hypertension Mother Cancer Sister 23 SCC Cancer Grandmother (Maternal) skin ca Colon cancer Aunt (Unspecified) 65 dad side Current Outpatient Medications Medication Sig Dispense Refill [...] No current facility-administered medications for this visit. EXAM: BP 118/78 (BP Site: Left Arm, BP Position: Sitting) | Pulse 72 | Temp 36.6 C (97.8 F) (Tympanic) | Resp 18 | Ht 1.702 m (5' 7") | Wt 82.4 kg (181 lb 11.2 oz) | LMP 01/06/2013 | SpO2 98% | BMI 28.46 kg/m | BSA 1.97 m GENERAL: 52 year old female well developed and well nourished in no acute distress SKIN: no rashes, ulcers, or spider angiomata HEENT: normocephalic, sclera clear, pharynx normal NECK: supple, no lymphadenopathy, no masses or thyroid enlargement LUNGS: clear to auscultation anterior and posterior HEART: regular rate & rhythm, no murmurs and no gallops ABDOMEN: normo-active bowel sounds, soft, mild epigastric tenderness on palpation, non-distended nomasses, no hepatosplenomegaly, no rebound or guarding, no bruits EXTREMITIES: no palmar erythema, no edema, no skin discoloration, no clubbing, no cyanosis NEURO: no lateralizing findings, Sensory/Motor grossly normal IMPRESSION/RECOMMENDATIONS: 52 year old female with Epigastric pain (Primary) - EGD, FLEXIBLE, DIAGNOSTIC History of intussusception/S/p small bowel obstruction - MRI ABDOMEN W WO CONTRAST; Future; Expected date: 05/20/2023 - MRI PELVIS W WO CONTRAST; Future; Expected date: 05/20/2023 Recommend 1/4 capful of Miralax daily (keeping more liquid in the GI tract may prevent SBO in the future). Continue adequate water intake and avoidance of other liquids. I spent a total of 40 minutes on the date of service in review of patient's record, and previously obtained information in person and appropriate medical visit, discussion and education of plan, withpatient and/or caregiver, placing orders for tests/referral/procedures as medically necessary and documentation of pertinent clinical information in patient's medical records for their visit today. Follow Up: Return if symptoms worsen or fail to improve. JAKE Lau [facility] Gastroenterology documented in this encounter Nursing Notes * Marbin Valente CMA - 05/13/2023 12:49 PM EDT Chief Complaint Patient presents with NEW PATIENT Small bowel obstruction Shante Cordoba is a 52 year old female who presents today after she had a small bowel obstruction. She was admitted to [facility] on and discharged on 04/24. She also had a CT at [facility] as well. She states that she has pain after eating. She states that her bowel movements are regular. She denies nausea or vomiting. documented in this encounter Plan of Treatment Upcoming Encounters Date Type Specialty Care Team Description 05/26/2023 Office Visit Dermatology Donita Cornejo PA-C [address] [place] [address] [place] [address] 06/07/2023 Hospital Encounter Endoscopy Kelsey Goldstein, DO [address] [place] [address] 06/07/2023 Surgery Endoscopy Kelsey Goldstein, DO [address] [place] [address] ESOPHAGOGASTRODUODENOSCOPY (EGD), FLEXIBLE, TRANSORAL, DIAGNOSTIC 06/15/2023 Pharmacy Pharmacy [facility], [facility] Hem/Onc [address] [place] [address] 06/16/2023 Imaging Radiology 06/16/2023 Imaging Radiology 08/23/2023 Imaging Radiology 08/30/2023 Office Visit Hematology Oncology Cory Infante MD [address] [place] [address] 12/26/2023 Office Visit Urology Charles Galvan MD [address] [place] [address] [place] [address] Scheduled Orders Name Type Priority Associated Diagnoses Orde r Schedule MRI ABDOMEN W WO CONTRAST Medical Imaging Routine History of intussusception S/p small bowel obstruction Expected: 05/20/2023, Expires: 06/13/2024 MRI PELVIS W WO CONTRAST Medical Imaging Routine History of intussusception S/p small bowel obstruction Expected: 05/20/2023, Expires: 06/13/2024 EGD, FLEXIBLE, DIAGNOSTIC Procedures Routine Epigastric pain Ordered: 05/13/2023 Scheduled Procedures Name Priority Associated Diagnoses Date/Ti [...] Tdap) 11/03/2023 11/02/2013 CKD PHOS USE SMARTSET 66868 12/02/2023 04/2 01/2023, 10/12/2021, 02/07/2020 CKD HGB USE SMARTSET 53461 04/27/202404/27, 04/27/2023, 02/04/2023, Additional history exists Diabetes [...] this encounter Medical Devices Implanted Type Area Septic Technician Device Identifier Shelf Expiration Date Model / Serial / Lot Implant Hi Prof Gel 750cc - [id number] Implanted:Qty: 1 on 07/02/2013 at OR [facility] Left: Breast MENTOR DARVIN 04/01/2014 [id number] / [id number] / [id number] documented as of this encounter Visit Diagnoses Diagnosis Epigastric pain- Primary Abdominal pain, epigastric History of intussusception S/p small bowel obstruction Personal history of other diseases of digestive system Epigastric pain Abdominal pain, epigastric documented in [...] Directives occurred with: Not Discussed Care Teams Junior Graphic Designer Relationship Specialty Start Date End Date Susie Ochoa MD [address] [place] [address] PCP - General Internal Medicine 03/02/12 documented as of this encounter
--- OUTSIDE RECORDS SUMMARY | 2023-07-03 02:45 | External Medical Summary | Summary of Care ---
Author Name Unknown Organization [facility] Address [address] [place] [address] Phone [phone] Care Team Providers Care Quality Improvement Analyst Name Role Phone Susie White MD Primary Care Provider [phone] Reason for Visit * Reason Comments Medication Management Encounter Details Date Type Department Care Team (Late st Contact Info) Description 06/15/2023 9:45 AM [facility] Pharmacy Pharmacy Hematology Oncology [facility] [address] [place] [address] [facility], [facility] Hem/Onc [address] [place] [address] Malignant neoplasm of overlapping sites of both breasts in female, estrogen receptor positive * Allergies No known active allergiesdocumented as of [...] Infante MD PI CRC Name: Molly Chowdhury CRC Contact PI or MULTI CARE TECHNICIAN regarding any serious medical event, if new [...] Infante MD PI CRC Name: Molly Chowdhury CRC Contact PI or MULTI CARE TECHNICIAN regarding any serious medical event, if new [...] as of this encounter Progress Notes * Jacqueline Hedrick, [facility] - 06/14/2023 4:17 PM EST MEDICATION THERAPY MANAGEMENT RIBOCICLIB (KISQALI) TREATMENT PROGRESS NOTE Shante "Genaro Cordoba [id number] Patient Phone Numbers Communication: Left message Current Treatment: Medication: Ribociclib (Kisqali) Indication: ER+/AK+/HER2- met breast cancer Dose: 400mg daily D1-21 every 28 days ( 01/11/20) Administration: +/- food Start Date: 11/28/2019 Primary Oncologist: Dr Yeimy Infante Supportive Care Meds: Letrozole Ondansetron Prochlorperazine Current cycle: 06/01 - 06/21 Next cycle: 06/29 - 07/19 (anticipated) Interval History: C1 stopped early due to diarrhea C2 stopped early due to grade 3 neutropenia Per previous discussion with Dr. Infante, lab monitoring extended to q3mo due to pt financial concern Admitted to [facility] 04/21/23-04/24/23 for small bowel obstruction Per MyG 05/04/23, pt confirmed resuming ribociclib 05/04/23 Changes to medication list since last visit? No Assessment and Plan: Patient had endoscopy on 06/07, surgical pathology showing small foci of metastatic adenocarcinoma Per TE from today, patient is going to get MRI of the abdomen next week and is recommended PET-CT scan for further evaluation of breast cancer recurrence Monitor for change in treatment Continue current therapy and q3mo labs (next due mid-July 2023) Will follow-up again in ~5 weeks Assessment of compliance: N/A Assessment of adverse effects attributed to drug therapy: N/A Dose adjustment needed based on lab or adverse drug reaction? No Follow up: 5 weeks Jacqueline Hedrick, PharmD, BCOP Ambulatory Clinical Pharmacist | Oral Chemotherapy Clinic [facility] 06/14/2023, 4:17 PM Pertinent labs: N/A Suggested Labs: CBCd and LFTs baseline, q2w x 2 cycles, prior to each cycle x 4 cycles, then as clinically necessary; Monitor ECG (prior to treatment initiation; repeat on day 14 of cycle 1, at the beginning of cycle 2 Parameters to be met: ANC > 1000; QTc < 450 msec EKG Date QTc 10/23/19 390 ms Time Spent on Encounter: 6 - 10 minutes Encounter Group: Oncology Encounter Interventions Item Category: Oral Chemotherapy Ribociclib Problem/Rationale: Safety: Needs additional monitoring - Medication Requires monitoring Pharmacist Intervention(s): Toxicity monitoring Magnitude of Intervention: Monitoring with no interventions (Level 0) documented in this encounter Plan of Treatment Upcoming Encounters Date Type Department Care Team (Late st Contact Info) Description 06/16/2023 2:30 PM EST Imaging Radiology [address], [place] [address] [place] [address] 06/16/2023 3:15 PM EST Imaging Radiology [address] [place] [address] 07/04/2023 7:45 AM EST Imaging Radiology [address], [place] [address] [facility] [place] [address] 08/23/2023 9:30 AM EST Imaging Radiology [address], [address] [place] [address] 08/30/2023 3:15 PM EST Office Visit Hematology/Oncology [facility] [address] [place] [address] Cory Infante MD [address] [place] [address] 12/26/2023 11:00 AM EDT Office Visit Urology, [facility] [address] [facility] [place] [address] Charles Galvan MD [address] [facility] [address] [place] [address] 07/24/2024 11:00 AM EST Office Visit Dermatology[address] [address] Donita Cornejo PA-C [address] [place] [address] [place] [address] Scheduled Procedures Name Priority Associated Diagnoses Date/Ti [...] Tdap) 11/03/2023 11/02/2013 CKD PHOS USE SMARTSET 69289 12/02/202311/07, 10/12/2021, 02/07/2020 CKD HGB USE SMARTSET 70482 04/27/202404/27, 04/27/2023, 02/04/2023, Additional history exists Diabetes Screening 04/27/2026 04/27/2023, 0 02/04/2023, 12/01/2022, Additional history exists Pneumococcal Vaccine: Pediatrics (0 to 5 Years) and At-Risk Patients (6 to 64 Years) (3 - PPSV23 or PCV20) 10/01/2026 10/01/2021, 05/26/2020 Lipid Panel 12/02/2027 12/01/2022, 03/0 02/2022, 11/03/2020, Additional history exists COLONOSCOPY-EVERY 5 YRS [...] this encounter Medical Devices Implanted Type Area Certified Coder Device Identifier Shelf Expiration Date Model / Serial / Lot Implant Hi Prof Gel 750cc - [id number] Implanted:Qty: 1 on 07/02/2013 at OR [facility] Left: Breast MENTOR DARVIN 04/01/2014 [id number] / [id number] / [id number] documented as of this encounter Visit Diagnoses Diagnosis Malignant neoplasm of overlapping sites of both breasts in female, estrogen receptor positive- Primary documented in this encounter Advance Directives Latest [...] Directives occurred with: Not Discussed Care Teams Quality Improvement Analyst Relationship Specialty Start Date End Date Susie White MD [address] [place] [address] PCP - General Internal Medicine 03/02/12 documented as of this encounter
--- OUTSIDE RECORDS SUMMARY | 2023-07-03 02:45 | External Medical Summary | Summary of Care ---
Author Name Unknown Organization [facility] Address [address] [place] [address] Phone [phone] Care Team Providers Care Coding Consultant Name Role Phone Susie White MD Primary Care Provider [phone] Reason for Visit * Reason Comments NEW PATIENT Referred for full sk in exam, no concerns * Evaluate & Treat - Unlimited Visits (Within 30 days (routine)) - Closed Specialty Diagnoses / Procedures Referred By Crystal chandler Referred To Contact Dermatology Diagnoses Skin cancer screening Family history of skin cancer Susie White MD [address] [facility] [address] Referral ID Status Reason Start Date Expiration Date V isits Requested Visits Authorized [id number] Closed Specialty Services Required 10/28/2022 999 999 Encounter Details Date Type Department Care Team Description 05/26/2023 Office Visit [facility]ology[facility]eba [facility] [place] [address] Donita Cornejo PA-C [address] [place] [address] [place] [address] Family hx of melanoma*; Skin exam, screening for cancer; Upton angioma; Lentigines; Multiple nevi Allergies No known [...] Infante MD PI CRC Name: Molly Chowdhury [facility] Contact PI or TREE TRIMMING LINE TECHNICIAN regarding any serious medical event, if [...] Infante MD PI CRC Name: Molly Chowdhury [facility] Contact PI or TREE TRIMMING LINE TECHNICIAN regarding any serious medical event, if [...] this encounter Patient Instructions * Patient Instructions* Dontia Cornejo PA-C - 05/26/2023 10:03 AM EDT [...] Product examples; Think sport, Think baby, Chidi, Swarm64 botanicals, AlbLevant Powers, [place] baby. "Baby" products can be used for all ages. documented in this encounter Progress Notes * Hansel Morrow MD - 05/26/2023 1:03 PM EDT I have seen and examined the patient via teledermatology review of chart note and photos with Donita Cornejo PA-C. I have reviewed and agree with the assessment and plan. * Donita Cornejo PA-C - 05/26/2023 9:57 [...] No new or changing lesions, per pt. [employer] Documentation Patient offered engineering professor and declined. REVIEW OF SYSTEMS: SKIN: No [...] NONE Reviewed, same day as visit, [facility] Dermatology lab work(s)/pathology report(s) as well as [...] Cornejo PA-C 05/26/2023 9:58 AM Ref: SUSIE WHITE[[id number]] 200 [place] [address] (office) [phone] (fax) PCP: SUSIE WHITE 200 [place] [address] [phone] documented in this encounter Nursing Notes * Val Pérez LPN - 05/26/2023 10:01 AM EDT Patient identified by full name and date of . Chief Complaint Patient presents with NEW PATIENT Referred for full skin exam, no concerns documented in this encounter Plan of Treatment Upcoming Encounters Date Type Specialty Care Team Description 06/07/2023 Hospital Encounter Endoscopy Kelsey Goldstein, DO [address] [place] [address] 06/07/2023 Surgery Endoscopy Kelsey Goldstein, DO [address] [place] [address] ESOPHAGOGASTRODUODENOSCOPY (EGD), FLEXIBLE, TRANSORAL, DIAGNOSTIC 06/15/2023 Pharmacy Pharmacy [facility] [place] Hem/Onc [address] [place] [address] 06/16/2023 Imaging Radiology 06/16/2023 Imaging Radiology 08/23/2023 Imaging Radiology 08/30/2023 Office Visit Hematology Oncology Cory Infante MD 200 [place] [address] 12/26/2023 Office Visit Urology Charles Galvan MD [address] [place] [address] [place] [id number] 07/24/2024 Office Visit Dermatology Donita Cornejo PA-C [address] [place] [address] [place] [phone] Scheduled Procedures Name Priority Associated Diagnoses Date/Ti [...] Tdap) 11/03/2023 11/02/2013 CKD PHOS USE SMARTSET 71738 12/02/202311/07, 10/12/2021, 02/07/2020 CKD HGB USE SMARTSET 73572 04/27/202404/27, 04/27/2023, 02/04/2023, Additional history exists Diabetes [...] this encounter Medical Devices Implanted Type Area Reimbursement Coordinator Device Identifier Shelf Expiration Date Model / Serial / Lot Implant Hi Prof Gel 750cc - [id number] Implanted:Q[place]: 1 [place] 07[place]02[place]2013 [place] [facility] [place] SHOP.COMOR DARVIN 04/01/2014 [id number] / [id number] / [id number] documented as of this encounter Procedures Procedure Name Priority Date/Time Associated Diagnosis Comments DERM IMAGE (SITE) Routine 05/26/2023 Family hx of melanoma Skin exam, screening for cancer Upton angioma Lentigines Multiple nevi documented in this encounter Results * DERM IMAGE (SITE) (05/26/2023) 05/26/2023 Donita Cornejo PA-C DIGITAL PHOTOG MATT documented in this encounter Visit Diagnoses Diagnosis Family hx [...] Directives occurred with: Not Discussed Care Teams Coding Consultant Relationship Specialty Start Date End Date Susie White MD [address] [place] [address] PCP - General Internal Medicine 03/02/12 documented as of this encounter
--- OUTSIDE RECORDS SUMMARY | 2023-07-03 02:45 | External Medical Summary | Summary of Care ---
Author Name Unknown Organization [facility] Address [address] [place] [address] Phone [phone] Care Team Providers Care Newspaper Editor Managing Name Role Phone Susie White MD Primary Care Provider [phone] Reason for Visit * Reason Onset Date Comments Test Results 06/14/2023 Encounter Details Date Type Department Care Team (Late st Contact Info) Description 06/14/2023 Telephone Hematology/Oncology Treatment, [place] [address] [place] [address] Cory Infante MD 200 [place] [address] Test Results Allergies No known active allergiesdocumented as of this encounter (statuses as of 06/15/2023) Medications Medication Sig Dispensed Refills Start Date [...] as of this encounter (statuses as of 06/15/2023) Active Problems Problem Noted Date Diagnosed Date [...] as of this encounter (statuses as of 06/15/2023) Resolved Problems Problem Noted Date Diagnosed Date [...] Infante MD PI CRC Name: Molly Chowdhury [facility] Contact PI or RECORD CHANGER TESTER regarding any serious medical event, if new [...] Infante MD PI CRC Name: Molly Chowdhury [facility] Contact PI or RECORD CHANGER TESTER regarding any serious medical event, if new Rx given, ER visit, hospitalization, or billing question Diagnosis changed due to Research Module. Go to Snapshot for study details. 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 Offered sooner appts, patientdeclined due to schedule. * Telephone Encounter - Brandy Chavez OSA - 06/14/2023 4:22 PM EST Pt returned call, please reach out to schedule. Thank You! * Telephone Encounter - Genesis Honeycutt OSA [...] 9:45 AM EST Pharmacy Pharmacy Hematology Oncology [place] [address] [place] [address] [facility] [place] Hem[facility]Onc [address] [place] [address] Malignant neoplasm of overlapping sites of both breasts in female, estrogen receptor positive * 06/16/2023 2:30 PM EST [address] Radiology [address] [place] [address] 06/16/2023 3:15 PM EST Imaging Radiology [address] [place] [address] 07/04/2023 7:45 AM EST Imaging Radiology [address] 132 [facility] [place] [address] 07/19/2023 11:15 AM EST Office Visit Hematology/Oncology [facility] [address] [place] [address] Cory Infante MD [address] [place] [address] 08/23/2023 9:30 AM EST Imaging Radiology [address] 132 [facility] [place] [address] 08/30/2023 3:15 PM EST Office Visit Hematology/Oncology [facility] [address] [place] [address] Cory Infante MD [address] [place] [address] 12/26/2023 11:00 AM EDT Office Visit Urology, [facility] [address] [place] [address] Charles Galvan MD 27 [facility] [address] [place] [address] 07/24/2024 11:00 AM EST Office Visit Dermatology[address] [address] Donita Cornejo PA-C [address] [place] [address] [place] [address] Scheduled Procedures Name Priority Associated Diagnoses Date/Ti [...] Tdap) 11/03/2023 11/02/2013 CKD PHOS USE SMARTSET 77583 12/02/2023 04/2 01/2023, 10/12/2021, 02/07/2020 CKD HGB USE SMARTSET 11398 04/27/202404/27, 04/27/2023, 02/04/2023, Additional history exists Diabetes [...] this encounter Medical Devices Implanted Type Area Disease Education Specialist Device Identifier Shelf Expiration Date Model / Serial / Lot Implant Hi Prof Gel 750cc - [id number] Implanted:Qty: 1 [place] [facility] [place] Breast MENTOR DARVIN 04/01/2014 [id number] / [id number] / [id number] documented as of this encounter Advance Directives [...] Directives occurred with: Not Discussed Care Teams Newspaper Editor Managing Relationship Specialty Start Date End Date Susie White MD 200 [facility] [place] [address] PCP - General Internal Medicine 03/02/12 documented as of this encounter
--- OUTSIDE RECORDS SUMMARY | 2023-07-03 02:45 | External Medical Summary | Summary of Care ---
Author Name Unknown Organization [facility] Address [address] [place] [address] Phone [phone] Care Team Providers Care Putty Glazer Name Role Phone Susie White MD Primary Care Provider [phone] Reason for Visit * Reason Onset Date Comments Test Results 06/14/2023 Encounter Details Date Type Department Care Team (Late st Contact Info) Description 06/14/2023 Telephone Hematology/Oncology Treatment, [place] [address] [place] [address] Cory Infante MD 200 [place] [address] Test Results Allergies No known active allergiesdocumented [...] Infante MD PI CRC Name: Molly Chowdhury [facility] Contact PI or SECURITIES VAULT SUPERVISOR regarding any serious medical event, if [...] Infante MD PI CRC Name: Molly Chowdhury [facility] Contact PI or SECURITIES VAULT SUPERVISOR regarding any serious medical event, if [...] 9:45 AM EST Pharmacy Pharmacy Hematology Oncology [address] [address] [facility] Hem/Onc [address] [place] [address] 06/16/2023 2:30 PM EST Imaging Radiology [address] [place] [address] 06/16/2023 3:15 PM EST Imaging Radiology [address] [place] [address] 07/04/2023 7:45 AM EST Imaging Radiology [address], [address] [place] [address] 08/23/2023 9:30 AM EST Imaging Radiology [address] 132 [facility] [place] [address] 08/30/2023 3:15 PM EST Office Visit Hematology/Oncology [place] [address] [place] [address] Cory Infante MD [address] [place] [address] 12/26/2023 11:00 AM EDT Office Visit Urology, [facility] [place] [address] Charles Galvan MD [address] [place] [address] [place] [address] 07/24/2024 11:00 AM EST [place] [address] [facility] [address] Donita Cornejo PA-C [address] [place] [address] [place] [phone] Scheduled Procedures Name Priority Associated Diagnoses Date/Ti [...] Tdap) 11/03/2023 11/02/2013 CKD PHOS USE SMARTSET 28601 12/02/2023 04/01/2023, 10/12/2021, 02/07/2020 CKD HGB USE SMARTSET 70696 04/27/202404/27, 04/27/2023, 02/04/2023, Additional history exists Diabetes [...] this encounter Medical Devices Implanted Type Area Case Briefer Device Identifier Shelf Expiration Date Model / Serial / Lot Implant Hi Prof Gel 750cc - [id number] Implanted:Qty: 1 on 07/02/2013 [place] [facility] [place]: Breast MENTOR DARVIN 04/01/2014 [id number] / [id number] / [id number] documented as of this encounter Advance Directives [...] Directives occurred with: Not Discussed Care Teams Putty Glazer Relationship Specialty Start Date End Date Susie White MD 200 [facility] [place] [address] PCP - General Internal Medicine 03/02/12 documented as of this encounter
--- OUTSIDE RECORDS SUMMARY | 2023-07-03 02:45 | External Medical Summary | Summary of Care ---
Author Name Unknown Organization [facility] Address [address] [place] [address] Phone [phone] Care Team Providers Care It Risk Analyst Name Role Phone Susie White MD Primary Care Provider [phone] Reason for Visit * Reason Onset Date Comments Test Results 06/14/2023 Encounter Details Date Type Department Care Team (Late st Contact Info) Description 06/14/2023 Telephone Hematology/Oncology Treatment, [place] [address] [place] [address] Cory Infante MD 200 [place] [address] Test Results Allergies No known active allergiesdocumented [...] Infante MD PI CRC Name: Molly Chowdhury [facility] Contact PI or HR RECRUITER regarding any serious medical event, if new [...] Infante MD PI CRC Name: Molly Chowdhury [facility] Contact PI or HR RECRUITER regarding any serious medical event, if new [...] encounter Miscellaneous Notes * Telephone Encounter - Brandy Chavez OSA [...] 9:45 AM EST Pharmacy Pharmacy Hematology Oncology [facility] [address] [place] [address] [facility] [place] Hem/Onc [address] [place] [address] Malignant neoplasm of overlapping sites of both breasts in female, estrogen receptor positive * 06/16/2023 2:30 PM EST Imaging Radiology [address], [address] [place] [address] 06/16/2023 3:15 PM EST Imaging Radiology [address], [address] [place] [address] 07/04/2023 7:45 AM EST Imaging Radiology [address], [place] [address] 08/23/2023 9:30 AM EST Imaging Radiology [address], [address] [place] [address] 08/30/2023 3:15 PM EST Office Visit Hematology/Oncology [facility] 200 [facility] [place] [address] Cory Infante MD 200 [facility] [place] [address] 12/26/2023 11:00 AM EDT Office Visit Urology, [facility] 132 [facility] [place] [address] Charles Galvan MD [address] [place] [address] [place] [address] 07/24/2024 11:00 AM EST Office Visit [address] [address] Donita Cornejo, PAAlly [address] [place] [address] [place] [address] Scheduled Procedures Name Priority Associated Diagnoses Date/Ti me COLONOSCOPY FLEXIBLE PROXIMA L DIAGNOSTIC Recall History of colonic polyps Health Maintenance Due Date Last Done Comments Hepatitis B (1 of 3 - 3-dose series) 1972 HIV Screening 1987 Hepatitis C Screening 1990 COVID-19 Vaccine (2022- season) 2023 07/28/2022, 02/02/2022, 05/11/2021, Additional history exists Influenza Vaccine (FLU shot) (#1) 2023 06/17/2022, 06/17/2022, 10/01/2021, Additional history exists GFR 10/26/2023 04/27/2023, 01/08, 12/01/2022, Additional history exists Albumin/Creatinine Ratio 10/29/2023 10/28/2022, 02/2022 Depression Screening 10/29/2023 10/28/2022 DTaP,Tdap,and Td Vaccines (2 - Td or Tdap) 11/03/2023 11/02/2013 CKD PHOS USE SMARTSET 42274 12/02/2023 04/2 01/2023, 10/12/2021, 02/07/2020 CKD HGB USE SMARTSET 55893 04/27/202404/27, 04/27/2023, 02/04/2023, Additional history exists Diabetes Screening 04/27/2026 04/27/2023, 0 02/04/2023, 12/01/2022, Additional history exists Pneumococcal Vaccine: Pediatrics (0 to 5 Years) and At-Risk Patients (6 to 64 Years) (3 - PPSV23 or PCV20) 10/01/2026 10/01/2021, 05/26/2020 Lipid Panel 12/02/2027 12/01/2022, 0302/2022, 11/03/2020, Additional history exists COLONOSCOPY-EVERY 5 YRS [...] this encounter Medical Devices Implanted Type Area Online Editor Device Identifier Shelf Expiration Date Model / Serial / Lot Implant Hi Prof Gel 750cc - [id number] Implanted:Qty: 1 on 07/02/2013 at [place] [facility] [place] Left: Breast MENTOR DARVIN 04/01/2014 [id number] / [id number] / [id number] documented as of this encounter Advance Directives [...] Directives occurred with: Not Discussed Care Teams It Risk Analyst Relationship Specialty Start Date End Date Susie White MD 200 [facility] [place] [address] PCP - General Internal Medicine 03/02/12 documented as of this encounter
--- OUTSIDE RECORDS SUMMARY | 2023-07-03 02:45 | External Medical Summary | Summary of Care ---
Author Name Unknown Organization [facility] Address 100 [facility] [place] [place] [address] Phone [phone] Care Team Providers Care Wire Fence Builder Name Role Phone Susie White MD Primary Care Provider [phone] Reason for Visit * Reason Onset Date Comments Appointment 06/10/2023 Encounter Details Date Type Department Care Team (Late st Contact Info) Description 06/10/2023 Telephone Rad[address] 132 [facility] [place] [address] Diana Rand TECH Appointment Allergies No known active allergiesdocumented as of [...] Cory Infante MD PI CRC Name: Molly [facility] Contact PI or MACHINE OPERATOR HOP WORKER regarding any serious medical event, if [...] Infante MD PI CRC Name: Molly Chowdhury [facility] Contact PI or MACHINE OPERATOR HOP WORKER regarding any serious medical event, if [...] encounter Miscellaneous Notes * Telephone Encounter - Diana Rand TECH - 06/10/2023 12:06 PM EDT Name: Shante Cordoba Do you have any of the following: Pacemaker, stents, heart valves, aneurysm clips? No Have you ever worked with metal or have you ever gotten metal in your eyes? No Have you had a colonoscopy in the last 30 days? No On dialysis? No Do you have any dermals or body piercing's? No or ? no Do you wear an insulin pump or diabetic monitor? No No new tattoos TESS Cheung documented in this encounter Plan of Treatment Upcoming Encounters Date Type Department Care Team (Late st Contact Info) Description 06/15/2023 9:45 AM EST Pharmacy Pharmacy Hematology Oncology [facility] [place] [address] [place] [address] [facility] Hem[facility]Onc [address] [place] [address] 06/16/2023 2:30 PM EST Imaging Radiology [address], [place] 132 [facility] [address] 06/16/2023 3:15 PM EST Imaging Radiology [address], [place] 132 [facility] [address] 08/23/2023 9:30 AM EST Imaging Radiology [address], [address] [address] 08/30/2023 3:15 PM EST Office Visit Hematology/Oncology [facility] 200 [facility] [place] [address] Cory Infante MD 200 [facility] [place] [address] 12/26/2023 11:00 AM EDT Office Visit Urology, [facility] 132 [place] [address] Charles Galvan MD [address] [place] [address] [place] [address] 07/24/2024 11:00 AM EST [place] [address] [facility] [place] [address] Donita Cornejo PA-C [address] [place] [address] [place] [address] Scheduled Procedures Name Priority Associated Diagnoses Date/Ti [...] Additional history exists Albumin/Creatinine Ratio 10/29/2023 10/28/2022, 0302/2022 Depression Screening 10/29/2023 10/28/2022 DTaP,Tdap,and Td Vaccines (2 - Td or Tdap) 11/03/2023 11/02/2013 CKD PHOS USE SMARTSET 34489 12/02/2023 04/01/2023, 10/12/2021, 02/07/2020 CKD HGB USE SMARTSET 04637 04/27/202404/27, 04/27/2023, 02/04/2023, Additional history exists Diabetes [...] this encounter Medical Devices Implanted Type Area Rib Puller Device Identifier Shelf Expiration Date Model / Serial / Lot Implant Hi Prof Gel 750cc - [id number] [place]ed:[place] 1 [place] [facility] [place] Breast MENTOR DARVIN 04/01/2014 [id number] / [id number] / [id number] documented as of this encounter Advance Directives [...] Directives occurred with: Not Discussed Care Teams Wire Fence Builder Relationship Specialty Start Date End Date Susie White MD 200 [place] [address] PCP - General Internal Medicine 03/02/12 documented as of this encounter
--- OUTSIDE RECORDS SUMMARY | 2023-07-03 02:45 | External Medical Summary | Summary of Care ---
Author Name Unknown Organization [facility] Address [address] [place] [place] [address] Phone [phone] Care Team Providers Care History Faculty Member Name Role Phone Susie White MD Primary Care Provider [phone] Reason for Visit * Auth/Cert Specialty Diagnoses / Procedures Referred By Crystal chandler Referred To Contact Diagnoses Epigastric pain Epigastric pain [R10.13] Procedures EGD, FLEXIBLE, DIAGNOSTIC ESOPHAGOGASTRODUODENOSCOPY (EGD), FLEXIBLE, TRANSORAL, DIAGNOSTIC Referral ID Status Reason Start Date Expiration Date Visits Re quested Visits Authorized [id number] Encounter Details Date Type Department Care Team (Latest Contact Info) Description 06/07/2023 11:01 AM EDT - 06/07/2023 12:42 PM EDT Hospital Encounter [facility], Endoscopy Room [facility] [address] [place] [phone] Kelsey Goldstein, [address] [place] [id number] Upper GI Endoscopy Discharge Disposition: Home - Self Care Allergies No known active allergiesdocumented as of this encounter (statuses as of 06/08/2023) Medications Medication Sig Dispensed Refills Start Date [...] as of this encounter (statuses as of 06/08/2023) Active Problems Problem Noted Date Diagnosed Date [...] as of this encounter (statuses as of 06/08/2023) Resolved Problems Problem Noted Date Diagnosed Date [...] Infante MD PI CRC Name: Molly Chowdhury [facility] Contact PI or RENEWABLE ENERGY TRADER regarding any serious medical event, if new [...] Infante MD PI CRC Name: Molly Chowdhury [facility] Contact PI or RENEWABLE ENERGY TRADER regarding any serious medical event, if new Rx given, ER visit, hospitalization, or billing question Diagnosis changed due to Research Module. Go to Snapshot for study details. 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 10/13/2019 documented as of this encounter (statuses as of 06/08/2023) Immunizations Name Administration Dates Next Due COVID-19 [...] Sign Reading Time Taken Comments Blood Pressure 125/75 06/07/2023 12:12 PM EDT Pulse 60 06/07/2023 12:12 PM EDT Temperature 36.2 C (97.2 F) 06/07/2023 11:56 AM E DT Respiratory Rate 16 06/07/2023 12:12 PM EDT Oxygen Saturation 98% 06/07/2023 12:12 PM EDT Inhaled Oxygen Concentration - - Weight 81.6 kg (180 lb) 06/07/2023 11:31 AM EDT Height 167.6 cm (5' 6") 06/07/2023 11:31 AM EDT Body Mass Index 29.05 06/07/2023 11:31 AM EDT documented in this encounter H&P Notes * Kelsey Goldstein, DO - 06/07/2023 11:30 AM EDT Procedure(s): Upper GI Endoscopy; with Indication(s) of upper abdominal symptoms that persist despite an appropriate trial of therapy Endoscopy Pre-Procedure Assessment: Prior to the procedure, the patient was identified. The patient's history, medications and allergies were reviewed as per the Anesthesia Assessment. The patient is competent. The risks and benefits of the proposed procedure and the planned sedation were discussed with the patient. All questions were answered and informed consent for the procedure was obtained. BP 152/96 | Pulse 76 | Temp (Src) 98.8 (Tympanic) | Resp 18 | Ht 5' 0" (1.524m) | Wt 165 lbs (74.844kg) | BMI 32.22 kg/m | BSA 1.78 m | SaO2 99% | LMP 08/19/2004 Prior to Admission medications Medication Sig Last Dose Discont. Kisqali (400 MG Dose) 200 MG Oral Tablet Therapy Pack (Ribociclib Succ (400 MG Dose)) Take 400 mg by mouth in the morning. For 21 days on, 7 days off of a 28 day cycle. 06/06/2023 Letrozole 2.5 MG Oral Tablet (Femara) Take 1 Tablet by mouth in the morning. 06/06/2023 traZODone HCl 50 MG Oral Tablet (Desyrel) Take 1 Tablet by mouth at bedtime. 06/06/2023 Calcium 600 MG Oral Tablet Take by mouth. 06/06/2023 Review of patient's allergies indicates: No Known Allergies Physical Exam: Mental Status Examination: alert and oriented. Airway Examination: normal oropharyngeal airway and neck mobility. Respiratory Examination: clear to auscultation. CV Examination: rrr, no murmurs, no S-3 or S-4. ASA Grade: II - A patient with mild systemic disease. After reviewing the risks and benefits, the patient was deemed in satisfactory condition to undergothe procedure. The anesthesia plan was to use general anesthesia. documented in this encounter Procedure Notes * Susie White MD - 06/07/2023 11:30 AM EDTAssociated Order(s): UPPER GI ENDOSCOPY [facility] Patient Name: Shante Cordoba Procedure Date: 06/07/2023 11:30 AM Date of : 1970 Admit Type: Outpatient Note Status: Finalized Date of : 1970 Admit Type: Outpatient Age: 52 Room: [facility] 2 Gender: Female Note Status: Finalized Procedure: Upper GI endoscopy Indications: Epigastric abdominal pain Providers: Kelsey Goldstein DO (Doctor) Referring MD: Susie White MD (Referring MD) Medicines: Propofol per Anesthesia Complications: No immediate complications. Estimated blood loss: Minimal. Procedure: Pre-Anesthesia Assessment: - Prior to the procedure, a History and Physical was performed, and patient medications, allergies and sensitivities were reviewed. The patient's tolerance of previous anesthesia was reviewed. - The risks and benefits of the procedure and the sedation options and risks were discussed with the patient. All questions were answered and informed consent was obtained. - Patient identification and proposed procedure were verified prior to the procedure by the physician and the nurse. The procedure was verified in the pre-procedure area in the procedure room. - Mental Status Examination: alert and oriented. Airway Examination: normal oropharyngeal airway and neck mobility. Respiratory Examination: clear to auscultation. CV Examination: normal. Abdominal Examination: bowel sounds present, abdomen soft and non-tender, no masses or organomegaly noted. - ASA Grade Assessment: II - A patient with mild systemic disease. - The medication list for this patient has been reviewed prior to the procedure and has been determined that the patient may proceed with the planned study. Any medication changes made as a result of the findings of this procedure have been discussed with the patient and/or agricultural sales representative at the time of discharge from the department. After obtaining informed consent, the endoscope was passed under direct vision. All instruments were visually inspected immediately before and after removal from the patient to ensure they are fully intact. Throughout the procedure, the patient's blood pressure, pulse, and oxygen saturations were monitored continuously. The [id number] Endoscope ([id number]) was introduced through the mouth, and advanced to the second part of duodenum. The upper GI endoscopy was accomplished without difficulty. The patient tolerated the procedure well. Findings & Specimens: The esophagus was normal. Many non-bleeding superficial gastric ulcers were found in the stomach. Biopsies were taken with a cold forceps for Helicobacter pylori testing. Verification of patient identification for the specimen was done by the physician and nurse using the patient's name and date. Estimated blood loss was minimal. The examined duodenum was normal. Impression: - Normal esophagus. - Non-bleeding gastric ulcers. Biopsied. - Normal examined duodenum. Recommendation: - Await pathology results. - Follow an antireflux regimen. - No ibuprofen, naproxen, or other non-steroidal anti-inflammatory drugs. - Use a proton pump inhibitor PO BID for 3 months then once a day thereafter. - Discharge patient to home. Kelsey Goldstein DO 06/07/2023 11:57:34 AM This report has been signed electronically. documented in this encounter Nursing Notes * Yenny Parry RN - 06/07/2023 12:37 PM EDT Patient is alert, pain free, passing flatus and tolerating po fluids prior to discharge. Patient has been visited by Dr. Goldstein. Patient has received and demonstrates understanding of discharge instructions. Patient is transported via w/c to private auto accompanied by endo staff. * Adriana Jones, BEN - 06/07/2023 12:31 PM EDT Called [facility] to have omeprazole script changed to that pharmacy instead of [facility] per patient and Dr. Goldstein's request. * Yenny Parry RN - 06/07/2023 12:11 PM EDT Assumed care of pt, report given by Adriana CONTRERAS. Pt resting comfortably, tolerating PO fluids. * Adriana Jones RN - 06/07/2023 11:56 AM EDT Patient transferred to post endo s/p EGD. Patient drowsy but oriented x 4. Respirations are even and unlabored on room air. NSR in the 50s on the monitor. Abdomen soft and non distended. Vital signs stable. * Edyta Monzon RN - 06/07/2023 11:54 AM EDT See anesthesia record for medication administered during procedure. Edyta Monzon RN Specimen(s) and location(s) verified with physician post procedure 11:54 AM Edyta Monzon RN Post-procedure scope cleaning began at bedside by endo watch technician Pt. Tolerated endoscopy well, no complications, soundly asleep, abdomen soft, transported to post endoscopy via stretcher by WATER QUALITY MANAGER. * Amanda Goel RN - 06/07/2023 11:33 AM EDT The following pt discharge instructions reviewed with pt prior to prodedure: No driving today. No alcohol today. No signing of legal documents. Rest as much as possible today and can return to normal activities tomorrow. No operating any heavy equipment today. Diet as tolerated. Pt verbalized understanding. documented in this encounter Plan of Treatment Upcoming Encounters Date Type Department Care Team (Late st Contact Info) Description 06/15/2023 9:45 AM EST Pharmacy Pharmacy Hematology Oncology [facility] [place] [address] [place] [address] [facility], [facility] Hem/Onc [address] [place] [address] 06/16/2023 2:30 PM EST Imaging Radiology [address], [address] [place] [address] 06/16/2023 3:15 PM EST Imaging Radiology [address], [place] [address] [place] [address] 08/23/2023 9:30 AM EST Imaging Radiology [address], [address] [place] [address] 08/30/2023 3:15 PM EST Office Visit Hematology/Oncology [facility] [address] [place] [address] Cory Infante MD [address] [place] [address] 12/26/2023 11:00 AM EDT Office Visit Urology, [facility] [address] [place] [address] Charles Galvan MD [address] [place], [place] [address] [address] 07/24/2024 11:00 AM EST Office Visit Dermatology[address] [place] [address] Donita Cornejo PA-C [address] [place] [address] [place] [address] Pending Results Name Type Priority Associated Diagnoses Date /Time SURGICAL PATHOLOGY Pathology Routine Epigastric pain 06/07/2023 11:53 AM EDT Scheduled Orders Name Type Priority Associated Diagnoses Orde r Schedule SURGICAL PATHOLOGY Pathology Routine Epigastric pain Release Upon Ordering for 1 Occurrences starting 06/07/2023, 1 completed Scheduled Procedures Name Priority Associated Diagnoses Date/Ti [...] Tdap) 11/03/2023 11/02/2013 CKD PHOS USE SMARTSET 42115 12/02/202311/07, 10/12/2021, 02/07/2020 CKD HGB USE SMARTSET 63987 04/27/202404/27, 04/27/2023, 02/04/2023, Additional history exists Diabetes [...] this encounter Medical Devices Implanted Type Area Project Development Engineer Device Identifier Shelf Expiration Date Model / Serial / Lot Implant Hi Prof Gel 750cc - [id number] Implanted:Qty: 1 on 07/02/2013 at [facility] Left: Breast MENTOR DARVIN 04/01/2014 [id number] / [id number] / [id number] documented as of this encounter Procedures Procedure Name Priority Date/Time Associated Diagnosis Comments UPPER GI ENDOSCOPY 06/07/2023 11 :30 AM EDT documented in this encounter Results * UPPER GI ENDOSCOPY (06/07/2023 11:30 AM EDT) 06/07/2023 11:3 0 AM EDT Narrative Procedure Note Susie White MD - 06/07/2023 11:30 AM EDT [facility] Patient Name: Shante Cordoba Procedure Date: 06/07/2023 11:30 AMMRN: [id number] Date of : 1970 Admit Type: Outpatient Note Status:Finalized Date of : 1970 Admit Type: Outpatient Age: 52 Room: [facility] 2 Gender: Female Note Status: Finalized Procedure: Upper GI endoscopy Indications: Epigastric abdominal pain Providers: Kelsey Goldstein DO (Doctor) Referring MD: Susie White MD (Referring MD) Medicines: Propofol per Anesthesia Complications: No immediate complications. Estimated blood loss:Minimal. Procedure: Pre-Anesthesia Assessment: - Prior to the procedure, a History and Physicalwas performed, and patient medications, allergies and sensitivities werereviewed. The patient's tolerance of previous anesthesia was reviewed. - The risks and benefits of the procedure and thesedation options and risks were discussed with the patient. All questions wereanswered and informed consent was obtained. - Patient identification and proposed procedurewere verified prior to the procedure by the physician and the nurse. The procedure wasverified in the pre-procedure area in the procedure room. - Mental Status Examination: alert and oriented.Airway Examination: normal oropharyngeal airway and neck mobility. RespiratoryExamination: clear to auscultation. CV Examination: normal. AbdominalExamination: bowel sounds present, abdomen soft and non-tender, no masses ororganomegaly noted. - ASA Grade Assessment: II - A patient with mildsystemic disease. - The medication list for this patient has beenreviewed prior to the procedure and has been determined that the patient may proceed with the plannedstudy. Any medication changes made as a result of the findings of this procedure have beendiscussed with the patient and/or agricultural sales representative [facility]. After obtaining informed consent, the endoscope waspassed under direct vision. All instruments were visually inspected immediatelybefore and after removal from the patient to ensure they are fully intact. Throughout the procedure, the patient's bloodpressure, pulse, and oxygen saturations were monitored continuously. The [id number] ([id number]) was introduced through the mouth, and advanced to the second part ofduodenum. The upper GI endoscopy was accomplished without difficulty. The patienttolerated the procedure well. Findings & Specimens: The esophagus was normal. Many non-bleeding superficial gastric ulcers were found in thestomach. Biopsies were taken with a cold forceps for Helicobacter pylori testing. Verification of patientidentification for the specimen was done by the physician and nurse using the patient's name and birthdate. Estimated blood loss was minimal. The examined duodenum was normal. Impression: - Normal esophagus. - Non-bleeding gastric ulcers. Biopsied. - Normal examined duodenum. Recommendation: - Await pathology results. - Follow an antireflux regimen. - No ibuprofen, naproxen, or other zhi-rprdgnqrgjxfz-qbfdlxgjxugk drugs. - Use a proton pump inhibitor PO BID for 3 monthsthen once a day thereafter. - Discharge patient to home. Kelsey Goldstein DO 06/07/2023 11:57:34 AM This report has been signed electronically. Susie White MD GASTRO UPPER documented in this encounter Visit Diagnoses Diagnosis Epigastric pain Abdominal pain, epigastric documented in this encounter Administered Medications Inactive Administered Medications - up to 3 most recent administrations Medication Order MAR Action Action Date Dose Rate Site isolyte-S pH 7.4 infusion Intravenous, at 100 mL/hr, Plasma-LYTE 148, isolyte-S, and isolyte-S pH 7.4 are considered equivalent - including for MAR barcode scanning., CONTINUOUS, Starting on Tue06/07/23 at 1215, Until Tue06/07/23 at 1642, Pre-Op Start Infusion 06/07/2023 11:38 AM EDT 100 mL/hr documented in this encounter Active and Recently Administered Medications Times are shown in EDT. Continuous Medication Order 06/05/2023 06/06/2023 06/07/2023 isolyte-S pH 7.4 infusion Intravenous, at 100 mL/hr, Plasma-LYTE 148, isolyte-S, and isolyte-S pH 7.4 are considered equivalent - including for MAR barcode scanning., CONTINUOUS, Starting on Tue06/07/23 at 1215, Until Tue06/07/23 at 1642, Pre-Op 1138 (Start Infusion - Provider: Amanda Goel RN)1156 (Anes Intra-Op Fluid - Provider: Sim Blanc CRNA)1215 (Due) documented in this encounter Advance Directives Latest [...] Directives occurred with: Not Discussed Care Teams History Faculty Member Relationship Specialty Start Date End Date Susie White MD [address] [place] [address] PCP - General Internal Medicine 03/02/12 documented as of this encounter
--- OUTSIDE RECORDS SUMMARY | 2023-07-03 02:46 | External Medical Summary | Summary of Care ---
Author Name Unknown Organization [facility] Address [address] [place] [facility] [address] Phone [phone] Care Team Providers Care Research Clerk Name Role Phone Susie White MD Primary Care Provider [phone] Reason for Visit * Reason Onset Date Comments Information 04/26/2023 Encounter Details Date Type Department Care Team Description 04/26/2023 Telephone Hematology/Oncology Treatment, [place] [address] [place] [address] Cory Infante MD 200 [facility] [place] [address] Information Allergies No known active allergiesdocumented as of this encounter (statuses as of 04/26/2023) Medications Medication Sig Dispensed Refills Start Date End Date Status Calcium 600 MG Oral TabletIndications:Vitami n D deficiency Take by mouth. 100 Tab 11 09/08/2012 Active ondansetron (ZOFRAN) 8 MG TabletIndications:Bilate ral malignant neoplasm of overlapping sites of breast in female (HCC),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) Take 1 Tab by mouth every 8 hours as needed for Nausea. 30 Tab 3 10/19/2019 Active prochlorperazine (COMPAZINE) 10 MG TabletIndications:Bilate ral malignant neoplasm of overlapping sites of breast in female (HCC),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) Take 1 Tab by mouth every 6 hours as needed for Nausea. 30 Tab 3 10/19/2019 Active traZODone HCl 50 MG Oral Tablet (Desyrel)Indications:Oth er insomnia Take 1 Tablet by mouth at bedtime. 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 90 Tablet 3 10/12/2022 Active Kisqali (400 MG Dose) 200 MG Oral Tablet Therapy Pack (Ribociclib Succ (400 MG Dose))Indications:Malign ant neoplasm of overlapping sites of both breasts in female, estrogen receptor positive (HCC) Take 400 mg by mouth in the morning. For 21 days on, 7 days off of a 28 day cycle. 42 Each 5 03/02/2023 Active documented as of this encounter (statuses as of 04/26/2023) Active Problems Problem Noted Date Stage 3a [...] as of this encounter (statuses as of 04/26/2023) Resolved Problems Problem Noted Date Resolved Date [...] Infante MD PI CRC Name: Molly Chowdhury [facility] Contact PI or AUTOMOTIVE INSTRUCTOR regarding any serious medical event, if new [...] Infante MD PI CRC Name: Molly Chowdhury [facility] Contact PI or AUTOMOTIVE INSTRUCTOR regarding any serious medical event, if new Rx given, ER visit, hospitalization, or billing question Diagnosis changed due to Research Module. Go to Snapshot for study details. 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 documented as of this encounter (statuses as of 04/26/2023) Immunizations Name Administration Dates Next Due COVID-19 mRNA, LNP-s, No Pre serve, 2-Dose Series (Moderna) 05/11/2021,10/04/2020,08/30/2020 Pneumococcal Conjugate Vacc, 13 Valent (Prevnar) 05/26/2020 Pneumococcal Polysaccharide PPV23 (Pneumovax) 10/01/2021 Seasonal Influenza Virus Vac cine, Unspecified Formulation 06/01/2019 Seasonal Influenza, PF, 6 mo ns & Above, IM , (Flulaval) 06/17/2022,10/01/2021,05/26/2020 Seasonal Influenza, Split, I IV3, With Preserve, [...] encounter Miscellaneous Notes * Telephone Encounter - LEN Mckee - 04/26/2023 1:28 PM EDT Scheduled as requested. * Telephone Encounter - Jacqueline Duval RN - 04/26/2023 1:14 PM EDT Reviewed with Dr Infante- ok to overbook tomorrow after patient sees Dr White. Called patient to let her know , she verbalized understanding. Scheduling: please add appt with Dr Infante tomorrow at 11:30am. Patient aware. Thanks! MTM: FYI * Telephone Encounter - Jacqueline Duval RN - 04/26/2023 12:21 PM EDT Patient admitted at [facility] 04/21/23- 04/24/23 for SBO, felt to be related to adhesions. Recommended sooner follow up with oncology. Called patient- she states that she was supposed to start her next cycle of kisqali tomorrow. Requesting to see Dr Infante around the time of PCP appt to try to stay on schedule. Advised her I would call her back after reviewing with Dr Infante. documented in this encounter Plan of Treatment Upcoming Encounters Date Type Specialty Care Team Description 04/27/2023 Office Visit Internal Medicine Susie White MD 200 [facility] [place] [address] 04/27/2023 Office Visit Hematology Oncology oCry Infante MD 200 [facility] [place] [address] 04/28/2023 Laboratory Laboratory [facility] Laboratory [facility] [place] [address] 04/29/2023 Pharmacy Pharmacy [facility] Hem/Onc [address] [place] [address] 05/09/2023 Hospital Encounter Endoscopy Raheem Hagen MD [address] [place] [address] 05/09/2023 Surgery Endoscopy Raheem Hagen MD [address] [place] [address] COLONOSCOPY FLEXIBLE PROXIMAL DIAGNOSTIC 05/26/2023 Office Visit Dermatology Donita Cornejo PA-C [address] [place] [address] [place] [address] 08/23/2023 Imaging Radiology 08/30/2023 Office Visit Hematology Oncology Cory Infante MD 200 [facility], [place] [address] Scheduled Procedures Name Priority Associated Diagnoses Date/Ti me COLONOSCOPY FLEXIBLE PROXIMAL DIAGNOSTIC Screen for colon cancer 05/09/2023 8:30 AM EDT Health Maintenance Due Date Last Done Comments Hepatitis B (1 of 3 - 3-dose series) 1972 HIV Screening 1987 Hepatitis C Screening 1990 Cologuard 2017 Colonoscopy 2017 Colorectal Cancer Screening 2017 Fecal Occult Blood Test 2017 Sigmoidoscopy 2017 Influenza Vaccine (FLU shot) (#1) 2023 06/17/2022, 06/17/2022, 10/01/2021, Additional history exists GFR 08/06/2023 02/04/2023, 11/07, 08/30/2022, Additional history exists Albumin/Creatinine Ratio 10/29/2023 10/28/2022, 03/0 02/2022 Depression Screening 10/29/2023 10/28/2022 DTaP,Tdap,and Td Vaccines (2 - Td or Tdap) 11/03/2023 11/02/2013 CKD PHOS USE SMARTSET 15710 12/02/20232 01/2023, 10/12/2021, 02/07/2020 CKD HGB USE SMARTSET 87711 02/05/202402/04, 02/04/2023, 12/01/2022, Additional history exists Diabetes Screening 02/04/2026 02/04/2023, 0 12/01/2022, 08/30/2022, Additional history exists Pneumococcal Vaccine: Pediatrics (0 to 5 Years) and At-Risk Patients (6 to 64 Years) (3 - PPSV23 or PCV20) 10/01/2026 10/01/2021, 05/26/2020 Lipid Panel 12/02/2027 12/01/2022, 03/0 02/2022, 11/03/2020, Additional history exists COVID-19 Vaccine Completed 07/28/2022, , 05/11/2021, Additional history exists Zoster Vaccines Completed 01/06/2023, 10/28/2022 GARDASIL-HPV IMMUNIZATION SERIES Aged Out No longer eligible based on patient's age to complete this topic MENINGOCOCCAL (MENACTRA/MENVEO) Aged Out No longer eligible based on patient's age to complete this topic documented as of this encounter Medical Devices Implanted Type Area Guitar Maker Hand Device Identifier Shelf Expiration Date Model / Serial / Lot Implant Hi Prof Gel 750cc - [id number] Implanted:Qty: 1 on 07/02/2013 at [place] [facility] Left: Breast MENTOR DARVIN 04/01/2014 [id number] / [id number] / [id number] documented as of this encounter Advance Directives [...] Directives occurred with: Not Discussed Care Teams Research Clerk Relationship Specialty Start Date End Date Susie White MD 200 [place] [address] PCP - General Internal Medicine 03/02/12 documented as of this encounter
--- OUTSIDE RECORDS SUMMARY | 2023-07-03 02:46 | External Medical Summary | Summary of Care ---
Author Name Unknown Organization [facility] Address [address] [facility] [place] [address] Phone [phone] Care Team Providers Care Lump Roller Name Role Phone Susie White MD Primary Care Provider Reason for Visit * Reason Onset Date Comments Test Results 04/28/2023 Encounter Details Date Type Department Care Team Description 04/28/2023 Telephone General Internal Medicine [facility] 200 [facility] [place] [address] Susie White MD 200 [place] [address] Test Results Allergies No known active allergiesdocumented as of this encounter (statuses as of 04/28/2023) Medications Medication Sig Dispensed Refills Start Date [...] as of this encounter (statuses as of 04/28/2023) Active Problems Problem Noted Date Stage 3a [...] as of this encounter (statuses as of 04/28/2023) Resolved Problems Problem Noted Date Resolved Date [...] Infante MD PI CRC Name: Molly Luciana [facility] Contact PI or SETTER OUT regarding any serious medical event, if new [...] Infante MD PI CRC Name: Molly Chowdhury [facility] Contact PI or SETTER OUT regarding any serious medical event, if new Rx given, ER visit, hospitalization, or billing question Diagnosis changed due to Research Module. Go to Snapshot for study details. 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 documented as of this encounter (statuses as of 04/28/2023) Immunizations Name Administration Dates Next Due COVID-19 mRNA, LNP-s, No Pre serve, 2-Dose Series (Moderna) 02/02/2022,05/11/2021,10/04/2020,08/30 Covid-19, Mrna, Lnp-s, Pf, B ivalent, 50 Mcg, IM, 12 yrs and above (Moderna) 07/28/2022 Pneumococcal Conjugate Vacc, 13 Valent (Prevnar) 05/26/2020 Pneumococcal Polysaccharide PPV23 (Pneumovax) 10/01/2021 Seasonal Influenza Virus Vac cine, Unspecified Formulation 06/17/2022,10/01/2021,05/26/2020,06/01 Seasonal Influenza, PF, 6 mo ns & [...] encounter Miscellaneous Notes * Telephone Encounter - Sierra Valente LPN - 04/28/2023 6:20 PM EDT Provider to address: N/A Reason for Call: Test Results Contact: Telephone Call Contact Type: Follow-up Outcome: Patient notified of message below. Verbalized understanding. Total Time including non face to face (minutes): 5 * Telephone Encounter - Susie White MD - 04/28/2023 5:36 PM EDT I got message back from Dr Castanon and she is okay to go with coloscopy - notify * Telephone Encounter - Kita Hicks CMA - 04/28/2023 1:22 PM EDT Patient aware and verbalized understanding Scheduling please assist with GI and urology * Telephone Encounter - Kita Hicks CMA - 04/28/2023 1:20 PM EDT ----- Message from Susie White MD sent at 04/28/2023 12:46 PM EDT ----- Bowel series showed moderate constipation but no obduction now . I know she is having bowel movement but doesn't feel empty or as good as before . Suggest to start colace-senna OTC 50-25 1 tab twice a day until feels better then only once a day . Due to intussusception and adhesion in abdomen she is prone to get acute or subacute obstruction so better to manage than not. Urine - no UTI Need to schedule GI appoint sooner within 1 month due to recent hospitalization and also urology appoint . I sent message to GI about colonoscopy and waiting answer documented in this encounter Plan of Treatment Upcoming Encounters Date Type Specialty Care Team Description 05/04/2023 Pharmacy Pharmacy [facility] Hem/Onc [address] [place] [address] 05/09/2023 Hospital Encounter Endoscopy Raheem Hagen MD [address] [place] [address] 05/09/2023 Surgery Endoscopy Raheem Hagen MD [address] [place] [address] COLONOSCOPY FLEXIBLE PROXIMAL DIAGNOSTIC 05/11/2023 Imaging Radiology 05/26/2023 Office Visit Dermatology Donita Cornejo PA-C [address] [place] [address] [place] [address] 08/11/2023 Office Visit Gastroenterology Gaudencio Norris CRNP [address] [place] [address] 08/23/2023 Imaging Radiology 08/30/2023 Office Visit Hematology Oncology Cory Infante MD 200 [facility] [place] [address] 12/26/2023 Office Visit Urology Charles Galvan MD [address] [facility] [address] [place] [address] Scheduled Procedures Name Priority Associated Diagnoses Date/Ti [...] Tdap) 11/03/2023 11/02/2013 CKD PHOS USE SMARTSET 77740 12/02/2023/01/2023, 10/12/2021, 02/07/2020 CKD HGB USE SMARTSET 27023 04/27/202404/27, 04/27/2023, 02/04/2023, Additional history exists Diabetes [...] this encounter Medical Devices Implanted Type Area Technical Service Specialist Device Identifier Shelf Expiration Date Model / Serial / Lot Implant Hi Prof Gel 750cc - [id number] Implanted:Qty: 1 on 07/02/2013 at [facility] Left: Breast MENTOR DARVIN 04/01/2014 [id number] / [id number] / [id number] documented as of this encounter Advance Directives [...] Directives occurred with: Not Discussed Care Teams Lump Roller Relationship Specialty Start Date End Date Susie White MD 200 [place] [address] PCP - General Internal Medicine 03/02/12 documented as of this encounter
--- OUTSIDE RECORDS SUMMARY | 2023-07-03 02:46 | External Medical Summary | Summary of Care ---
Author Name Unknown Organization [facility] Address [address] [place] [address] Phone [phone] Care Team Providers Care Fireperson Name Role Phone Susie White MD Primary Care Provider [phone] Reason for Visit * Reason Comments Medication Management Encounter Details Date Type Department Care Team Description 05/11/2023 Pharmacy Pharmacy Hematology Oncology [facility] [address] [place], [place] [phone] [facility] Hem/Onc [address] [place], [place] [id number] Malignant neoplasm of overlapping sites of both breasts in female, estrogen receptor positive * Allergies No known active allergiesdocumented as of this encounter (statuses as of 05/11/2023) Medications Medication Sig Dispensed Refills Start Date [...] as of this encounter (statuses as of 05/11/2023) Active Problems Problem Noted Date Stage 3a chronic kidney disease 06/16/20 20 Overview: Per CKD protocol - Per CKD [...] as of this encounter (statuses as of 05/11/2023) Resolved Problems Problem Noted Date Resolved Date [...] Infante MD PI CRC Name: Molly Chowdhury [facility] Contact PI or SAMPLE TAKER OPERATOR regarding any serious medical event, if new [...] Infante MD PI CRC Name: Molly Chowdhury [facility] Contact PI or SAMPLE TAKER OPERATOR regarding any serious medical event, if new Rx given, ER visit, hospitalization, or billing question Diagnosis changed due to Research Module. Go to Snapshot for study details. 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 documented as of this encounter (statuses as of 05/11/2023) Immunizations Name Administration Dates Next Due COVID-19 [...] as of this encounter Progress Notes * Radha Toscano, [facility] - 05/11/2023 10:03 AM EDT MEDICATION THERAPY MANAGEMENT RIBOCICLIB (KISQALI) TREATMENT PROGRESS NOTE Shante "Radha" Beryl [id number] Patient Phone Numbers Communication: Spoke to: Patient Current Treatment: Medication: Ribociclib (Kisqali) Indication: ER+/NV+/HER2- met breast cancer Dose: 400mg daily D1-21 every 28 days ( 01/11/20) Administration: +/- food Start Date: 11/28/2019 Primary Oncologist: Dr Yeimy Infante Supportive Care Meds: Letrozole Ondansetron Prochlorperazine Current cycle: 05/04 - 05/24 Next cycle: 06/01 - 06/21 (anticipated) Interval History: C1 stopped early due to diarrhea C2 stopped early due to grade 3 neutropenia Per previous discussion with Dr. Infante, lab monitoring extended to q3mo due to pt financial concern Admitted to [facility] 04/21/23-04/24/23 for small bowel obstruction Per MyG 05/04/23, pt confirmed resuming ribociclib 05/04/23 No concerns, tolerating therapy restart well Changes to medication list since last visit? No Assessment and Plan: Continue current therapy and q3mo labs (next due mid-July 2023) Assessment of compliance: compliant Assessment of adverse effects attributed to drug therapy: Edema - absent Rash - absent Nausea/Vomiting - absent Diarrhea - absent Arthralgias - absent Dose adjustment needed based on lab or adverse drug reaction? No Follow up: 5 weeks Radha Toscano, PharmD, BCOP Clinical Pharmacist, [facility] Oral Chemotherapy [facility] 05/11/2023, 10:08 AM Pertinent labs: N/A Suggested Labs: CBCd and [...] Toxicity monitoring Magnitude of Intervention: Monitoring with direction (Level 1) documented in this encounter Plan of Treatment Upcoming Encounters Date Type Specialty Care Team Description 05/11/2023 Imaging Radiology 05/13/2023 Office Visit Gastroenterology Gaudencio Norris CRNP [address] [place] [address] 05/26/2023 Office Visit Dermatology Donita Cornejo PA-C [address] [place] [address] [place] [address] 06/15/2023 Pharmacy [facility] [facility] Hem[facility]Onc [address] [facility] [place] [address] 08/23/2023 Imaging Radiology 08/30/2023 Office Visit Hematology Oncology Cory Infante MD [address] [place] [address], [place] [address] 12/26/2023 Office Visit Urology Galvan, Charles Rajan MD [address] [place] [address] Health Maintenance Due Date Last Done Comments [...] Tdap) 11/03/2023 11/02/2013 CKD PHOS USE SMARTSET 43917 12/02/2023/01/2023, 10/12/2021, 02/07/2020 CKD HGB USE SMARTSET 10893 04/27/202404/27, 04/27/2023, 02/04/2023, Additional history exists Diabetes [...] this encounter Medical Devices Implanted Type Area Rubber Stamp Dies Inspector Device Identifier Shelf Expiration Date Model / Serial / Lot Implant Hi Prof Gel 750cc - [id number] Implanted:Qty: 1 on 07/02/2013 at [place] [facility] [place] Left: Breast MENTOR DARVIN 04/01/2014 [id number] / [id number] / [id number] documented as of this encounter Visit Diagnoses [...] Directives occurred with: Not Discussed Care Teams Fireperson Relationship Specialty Start Date End Date Susie White MD 200 [facility] [place] [address] PCP - General Internal Medicine 03/02/12 documented as of this encounter
--- OUTSIDE RECORDS SUMMARY | 2023-07-03 02:46 | External Medical Summary ---
Author Name Unknown Address Unknown Organization K09:[facility] [place] [address] Laboratory Report Ordering Provider Test Date Status RISA JENKINS 04/27/2023 12:18:59 Final Observation Date Value Abnormality Reference (Units ) Status BUN 04/27/2023 12:18:59 11 6-20 (mg/dL) Final Creatinine 04/27/2023 12:18:59 1.2 Above high normal 0.5-1.0 (mg/dL) Final Glomerular filtration rate/1.73 sq M.predicted [Volume Rate/Area] in Serum, Plasma or Blood by Creatinine-based formula (CKD-EPI) 04/27/2023 12:18:59 56 Below low normal >=60 (mL/min) Final eGFR is calculated based on the CKD-EPI 2020 equation SODIUM 04/27/2023 12:18:59 139 135-146 (m mol/L) Final Potassium 04/27/2023 12:18:59 4.2 3.5-5.1 (m mol/L) Final Cl 04/27/2023 12:18:59 104 98-107 (mm ol/L) Final CO2 04/27/2023 12:18:59 25 22-32 (mmo l/L) Final Anion gap 04/27/2023 12:18:59 10 7-15 (mmol /L) Final Glucose 04/27/2023 12:18:59 98 70-120 (mg /dL) Final Albumin 04/27/2023 12:18:59 4.6 3.8-5.0 (g /dL) Final AST (Aspartate aminotransferase) 04/27/2023 12:18:59 36 Above high normal 10-35 (U/L) Final Alk Phos 04/27/2023 12:18:59 58 35-130 (U/ L) Final Bilirubin, Total 04/27/2023 12:18:59 0.3 <=1 .2 (mg/dL) Final Calcium 04/27/2023 12:18:59 9.8 8.4-10.2 ( mg/dL) Final Protein 04/27/2023 12:18:59 7.3 6.0-8.3 (g /dL) Final ALT (Alanine aminotransferase) 04/27/2023 12:18:59 34 10-35 (U/L) Chad donovan Performing Location [facility] [address] [place] [address]
--- OUTSIDE RECORDS SUMMARY | 2023-07-03 02:46 | External Medical Summary | Summary of Care ---
Author Name Unknown Organization [facility] Address [address] [facility] [place] [address] Phone [phone] Care Team Providers Care Control Tower Radio Operator Name Role Phone Susie White MD Primary Care Provider [phone] Reason for Visit * Reason Onset Date Comments Information 04/26/2023 Encounter Details Date Type Department Care Team Description 04/26/2023 Telephone Hematology/Oncology Treatment, [place] [address] [place] [address] Cory Infante MD 200 [facility] [place] [address] Information Allergies No known active allergiesdocumented as [...] PI CRC Name: Molly Chowdhury [facility] Contact PI or FINANCIAL SALES PROFESSIONAL regarding any serious medical event, if new [...] PI CRC Name: Molly Chowdhury [facility] Contact PI or FINANCIAL SALES PROFESSIONAL regarding any serious medical event, if new [...] encounter Miscellaneous Notes * Telephone Encounter - Jacqueline Duval RN [...] 04/26/2023 12:21 PM EDT Patient admitted at [facility] 04/21/23- 04/24/23 for SBO, felt to be [...] Visit Internal Medicine Susie White MD [address] [place] [address] 04/28/2023 Laboratory Laboratory [place] [address] [place] [address] 04/29/2023 Pharmacy Pharmacy [facility] [place], [facility] Hem[facility]Onc [address] [place], [place] [address] 05/09/2023 Hospital Encounter Endoscopy Raheem Hagen MD [address] [place] [address] 05/09/2023 Surgery Endoscopy Raheem Hagen MD [address] [place] [address] COLONOSCOPY FLEXIBLE PROXIMAL DIAGNOSTIC 05/26/2023 Office Visit Dermatology Donita Cornejo PA-C [address] [place] [address] [place] [address] 08/23/2023 Imaging Radiology 08/30/2023 Office Visit Hematology Oncology Cory Infante MD [address] [place] [address] Scheduled Procedures Name Priority Associated Diagnoses Date/Ti [...] Tdap) 11/03/2023 11/02/2013 CKD PHOS USE SMARTSET 83053 12/02/202311/07, 10/12/2021, 02/07/2020 CKD HGB USE SMARTSET 29116 02/05/202402/04, 02/04/2023, 12/01/2022, Additional history exists Diabetes [...] this encounter Medical Devices Implanted Type Area Internal Review And Audit Compliance Device Identifier Shelf Expiration Date Model / Serial / Lot Implant Hi Prof Gel 750cc - [id number] Implanted:Qty: 1 on 07/02/2013 at OR [facility] [place] Left: Breast MENTOR DARVIN 04/01/2014 [id number] / [id number] / [id number] documented as of this encounter Advance Directives [...] Directives occurred with: Not Discussed Care Teams Control Tower Radio Operator Relationship Specialty Start Date End Date Susie White MD [address] [place] [address] PCP - General Internal Medicine 03/02/12 documented as of this encounter
--- OUTSIDE RECORDS SUMMARY | 2023-07-03 02:46 | External Medical Summary | Summary of Care ---
Author Name Unknown Organization [facility] Address [address] [facility] [place] [address] Phone [phone] Care Team Providers Care Flavor Maker Name Role Phone Susie White MD Primary Care Provider [phone] Reason for Visit * Reason Onset Date Comments Test Results 04/28/2023 Encounter Details Date Type Department Care Team Description 04/28/2023 Telephone General Internal Medicine [facility] [address] [facility] [place] [address] Susie White MD [address] [facility] [place] [address] Test Results Allergies No known active allergiesdocumented as of this encounter (statuses as of 04/29/2023) Medications Medication Sig Dispensed Refills Start Date [...] as of this encounter (statuses as of 04/29/2023) Active Problems Problem Noted Date Stage 3a [...] as of this encounter (statuses as of 04/29/2023) Resolved Problems Problem Noted Date Resolved Date [...] Infante MD PI CRC Name: Molly Luciana [facility] Contact PI or FORMULA ROOM WORKER regarding any serious medical event, if [...] [facility] Contact PI or FORMULA ROOM WORKER regarding any serious medical event, if new Rx given, ER visit, hospitalization, or billing question Diagnosis changed due to Research Module. Go to Snapshot for study details. 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 documented as of this encounter (statuses as of 04/29/2023) Immunizations Name Administration Dates Next Due COVID-19 [...] Miscellaneous Notes * Telephone Encounter - LEN Lee - 04/29/2023 9:40 AM EDT Pt has colonoscopy and urology both scheduled 04/29 JAT * Telephone Encounter - Sierra Valente LPN [...] Specialty Care Team Description 05/04/2023 Pharmacy Pharmacy [facility] Hem[facility]c [address] [place] [address] 05/09/2023 Hospital Encounter Endoscopy Raheem Hagen MD [address] [place] [id number] 05/09/2023 Surgery Endoscopy Raheem Hagen MD [address] [place] [address] COLONOSCOPY FLEXIBLE PROXIMAL DIAGNOSTIC 05/11/2023 Imaging Radiology 05/26/2023 Office Visit Dermatology Donita Cornejo PA-C [address] [place] [address] [place] [address] 08/11/2023 Office Visit Gastroenterology Gaudencio Norris CRNP [address] [place] [address] 08/23/2023 Imaging Radiology 08/30/2023 [facility] [address] [facility] [address] 12/26/2023 Office Visit Urology Charles Galvan MD [address] [place] [address] Scheduled Procedures Name Priority Associated Diagnoses Date/Ti [...] Additional history exists Albumin/Creatinine Ratio 10/29/2023 10/28/2022, 03/02/2022 Depression Screening 10/29/2023 10/28/2022 DTaP,Tdap,and Td Vaccines (2 - Td or Tdap) 11/03/2023 11/02/2013 CKD PHOS USE SMARTSET 36108 12/02/2023 04/2 01/2023, 10/12/2021, 02/07/2020 CKD HGB USE SMARTSET 71293 04/27/202404/27, 04/27/2023, 02/04/2023, Additional history exists Diabetes Screening 04/27/2026 04/27/2023, 0 02/04/2023, 12/01/2022, Additional history exists Pneumococcal Vaccine: Pediatrics (0 to 5 Years) and At-Risk Patients (6 to 64 Years) (3 - PPSV23 or PCV20) 10/01/2026 10/01/2021, 05/26/2020 Lipid Panel 12/02/2027 12/01/2022, 03/02/2022, 11/03/2020, Additional history exists COVID-19 Vaccine Completed 07/28/2022, , 05/11/2021, Additional history exists Zoster Vaccines Completed 01/06/2023, 10/28/2022 GARDASIL-HPV IMMUNIZATION SERIES Aged Out No longer eligible based on patient's age to complete this topic MENINGOCOCCAL (MENACTRA/MENVEO) Aged Out No longer eligible based on patient's age to complete this topic documented as of this encounter Medical Devices Implanted Type Area Wood Milling Machine Tender Device Identifier Shelf Expiration Date Model / Serial / Lot Implant Hi Prof Gel 750cc - [id number] Implanted:Qty: 1 on 07/02/2013 at OR [facility] Left: Breast MENTOR DARVIN 04/01/2014 [id number] / [id number] / [id number] documented as of this encounter Advance Directives [...] Directives occurred with: Not Discussed Care Teams Flavor Maker Relationship Specialty Start Date End Date Susie White MD [address] [facility] [place] [address] PCP - General Internal Medicine 03/02/12 documented as of this encounter
--- OUTSIDE RECORDS SUMMARY | 2023-07-03 02:46 | External Medical Summary | Summary of Care ---
Author Name Unknown Organization [facility] Address [address] [facility] [place] [address] Phone [phone] Care Team Providers Care Duct Layer Name Role Phone Susie White MD Primary Care Provider [phone] Reason for Visit * Reason Comments Follow Up Hospital discharge Encounter Details Date Type Department Care Team Description 04/27/2023 Office Visit Hematology/Oncology Salma Jaquez [place] [address] [facility] [place] [place] [address] Cory Infante MD 200 [facility] [place] [address] Malignant neoplasm of overlapping sites of both breasts in female, estrogen receptor positive (HCC)*; 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); 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) Allergies No known active allergiesdocumented as of this encounter (statuses as of 04/27/2023) Medications Medication Sig Dispensed Refills Start Date [...] as of this encounter (statuses as of 04/27/2023) Active Problems Problem Noted Date Stage 3a [...] as of this encounter (statuses as of 04/27/2023) Resolved Problems Problem Noted Date Resolved Date [...] [facility] Contact PI or PRODUCT ANALYST regarding any serious medical event, if new [...] [facility] Contact PI or PRODUCT ANALYST regarding any serious medical event, if new Rx given, ER visit, hospitalization, or billing question Diagnosis changed due to Research Module. Go to Snapshot for study details. 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 documented as of this encounter (statuses as of 04/27/2023) Immunizations Name Administration Dates Next Due COVID-19 [...] Sign Reading Time Taken Comments Blood Pressure 135/85 04/27/2023 11:50 AM EDT Pulse 66 04/27/2023 11:50 AM EDT Temperature - - Respiratory Rate 16 04/27/2023 11:50 AM EDT Oxygen Saturation 98% 04/27/2023 11:50 AM EDT Inhaled Oxygen Concentration - - Weight 84.2 kg (185 lb 9.6 oz) 04/27/2023 11:50 AM EDT Height - - Body Mass Index 29.96 04/27/2023 10:55 AM EDT documented in this encounter Progress Notes * Cory Infante MD - 04/27/2023 11:30 AM EDT NAME: Shante Cordoba 1970 52-year-old female, DIAGNOSIS: - Right breast carcinoma multifocal infiltrating ductal carcinoma as well as lobular carcinoma ,S/Pbilateral mastectomies followed by reconstruction (04/21/2012) - T3 N3a M0, stage IIIC. -she had elevated breast cancer tumor marker CA 27-29 (194) and CA 15-5 (140) at that time the diagnosis in 2011 -BRCA1 and BRCA2 mutation--> negative. -Mild right upper extremity lymphedema which is stable. -Sarcoidosis. Asymptomatic, not on treatment. - for the last 2 years she has persistently elevated breast cancer tumor markers CA 27-29 and CA 15-3. S/P laparoscopic cholecystectomy on 10/02/2019, also had peripancreatic lymph node, biopsy from thatconfirmed metastatic breast cancer, ER positive in 100% malignamt cells, weak to intermediate positive, ME negative, Her2/Maximilian 2+. FISH -ve. CURRENT TREATMENT: Started on letrozole in mid-October 2019. -started on ribociclib since 11/28/2019 (400 mg once a day for 21 days followed by 1 week off). PREVIOUS TREATMENT: -S/P bilateral mastectomies followed by immediate reconstruction (April,) -Dose dense AC followed by weekly paclitaxel between 05/22/2012-11/01/2012 Adjuvant radiation treatment completed in January,. - had Zoladex -S/P bilateral oophorectomy in January, (no hysterectomy) -tamoxifen between January [id number] 2020. Diagnosis of right breast: She says that earlier in December of 2011 she noticed to to have lump in the right breast without any local symptoms, she is premenopausal, bilateral breast mammogram and sonogram done on 03/21/2012 showedmultiple soft tissue masses involving the left breast with some local induration. No suspicious findings noted in the left breast. Bilateral breast MRI done on 03/16/2012 showed spiculated 12 o'clock mass measuring 6.5 x 6.8 x 5.7 cm, additional multifocal enhancing lesions noted throughout the right breast. No chest wall abnormally noted. No suspicious findings noted in the left breast. - Core needle biopsy of 12 o'clock lesion --> Invasive ductal carcinoma, grade I, measuring 1.2 cm on the slide, extensive DCIS present. ER strongly positive in 100% malignant cells, ME moderatelypositive in 50% malignant cells, [id number] negative. - Core needle biopsy of 4 o'clock lesion --> Invasive lobular carcinoma, grade 2, measuring 0.6 cm on the slide, ER strongly positive in 100% malignant cells, ME moderately positive in 50% malignant cells. [id number] negative. She is otherwise doing well, has no new cardiac or pulmonary symptoms, ambulates well, good ECOG performance status of 0, no weight loss. No headache, no focal neurological symptoms. No back pain or bone pain. No family history of breast cancer or any other kind of cancers. In the past she never had any thrombotic complications. She was on 3 occasions, had one miscarriage, has not used -control pill in the past. - MRI of the brain done on 04/07/2012 --> Negative for metastatic disease. - PET-CT scan done on 04/05/2012 showed hypermetabolic multifocal activity involving the right breast, hypermetabolic right axillary lymph nodes noted. No evidence of any metastatic disease noted anywhere else. - CA 27-29 --> 194.4, CA 15-3 --> 140.9 (04/03/2012) She underwent bilateral mastectomies, right axillary lymph warren dissection followed by immediate reconstruction surgery by Dr. Carbajal and by Dr. Chan on 04/21/2012. Final pathology --> Tumor # 1: invasive lobular carcinoma, grade II, measuring 4 x 2.5 by 2 cm, LCIS present, no lymphovascular or perineural invasion noted. - Tumor # 2 --> Invasive ductal carcinoma, grade I, measuring 5.2 x 3 x 3 cm, negative resectionmargin, DCIS present, negative lymphovascular or perineural invasion noted. - 19 out of 23 lymph node positive for metastatic disease, most of the metastatic disease is consistent with lobular carcinoma but minority does appear ductal carcinoma. Largest metastatic lymph nodemeasuring 2.5 cm, no extranodal invasion noted. - Left mastectomy specimen showed benign findings. - TNM staging --> T3 N3a M0, stage III C. BRCA1 and BRCA2 mutation --> negative (07/2012) Diagnosis of sarcoidosis: -PET-CT scan done on 01/21/2016 showed extensive lymphadenopathy involving the cervical, mediastinal, hilar, internal mammary, subpectoral, upper abdominal region which are metabolic active. No bony lesions, no liver lesions noted. She was [place] Farmer [place] [facility] [place] underwent bronchoscopic evaluation (01/28/2016, biopsy from the mediastinal lymph nodes) showed noncaseating granulomas, final diagnosis sarcoidosis. Angiotensin-converting enzyme level--> 93 (02/02/2016) She had upper abdominal pain on the right side, intermittently for the last 1 year but got worse inlate September 2019, further workup as follows: MRCP (10/02/2019) 1. Stone filled and mildly distended gallbladder is noted with trace pericholecystic fluid. Findings are concerning for developing acute cholecystitis. 2. Mildly dilated common bile duct with mild intrahepatic biliary ductal dilation. No definite choledocholithiasis identified. 3. Nonspecific mildly prominent and enlarged periportal lymph nodes. She underwent laparoscopic cholecystectomy and biopsy of the lymph node by Dr. Vargas. Pathology: Laparoscopic cholecystectomy and lymph node of [place] biopsy (10/02/2019) -metastatic carcinoma consistent with the breast primary of lobular carcinoma. -ER positive in 100% of cells, intermediate to weak positive, ME negative, Her2/Maximilian equivocal (2+),FISH negative. -gallbladder showed chronic cholecystitis. Postoperatively she had pancreatitis. She was in the hospital for about [address] scan of the abdomen and pelvis (10/04/2019). 1. Status post cholecystectomy. There is a trace amount of gas and fluid at the resection bed. Thisfavors recent postoperative change. 2. Mild peripancreatic edema/fat stranding likely representing acute pancreatitis. Recommend correlation with pancreatic enzymes. 3. Mild central intrahepatic bile duct dilatation. The common bile duct is at the upper limits of normal measuring 6.7 mm. 4. Mild thickening and inflammatory change involving the second portion of duodenum. This could be reactive. 5. A right upper quadrant percutaneous drain is noted. 6. Trace bilateral pleural effusions. 7. Trace amount of pelvic free fluid. FNA from peripancreatic lymph node x 2 --> metastatic carcinoma. (10/04/2019). PET-CT scan (10/10/2019) - 1. Multiple intensely hypermetabolic foci in the peripancreatic and perigastric regions most concerning for metastatic disease. Fluid and fat stranding in the peripancreatic region could be relatedto an inflammatory process or postoperative change. Clinical correlation is advised. 2. Small foci of hypermetabolic activity in the inferior aspect of the right hepatic lobe are suspicious for metastatic deposit. 3. Resolution of previously seen hypermetabolic mediastinal and hilar lymphadenopathy OTHER IMPORTANT HISTORY: -Sarcoidosis Interval history: She has come the clinic for the follow-up, presently she is on ribociclib and letrozole, tolerated the treatment quite well, earlier she had diarrhea which required dose reduction of Ribociclib, now diarrhea has improved and manageable, Recently she started having abdominal pain, nausea, vomiting, she was admitted at [facility], I reviewed hospital records. CT scan of the abdomen pelvis (04/21/2023). 1. High-grade small bowel obstruction with transition point within the right mid abdomen, likely secondary to small bowel adhesions. There is associated bowel wall thickening with interloop edema andsmall volume of ascites. 2. No pneumatosis or pneumoperitoneum. 3. Mild bilateral hydronephrosis with suggested ascending infection on the left. 4. Cholecystectomy. 5. Normal appendix. Blood workup done on 04/23/2023: -WBC 2400, H&H of 12.2/35.0, Platelet count [id number]. -ANC 1100. -Calcium 8.5, phosphorus 3.4, magnesium 1.8. -normal LFT, -urine culture negative. She was treated conservatively with improvement of the abdominal pain, started eating, no nausea novomiting at this time, no cardiac or pulmonary symptom no upper extremity edema, no leg edema, ambulates well, current weight is around 185 lb. No active urinary symptoms. No constipation. No blood in the stool. No fever. She takes trazodone for the insomnia for the symptomatic treatment. Also takes vitamin-D and Calcium supplementation on a regular basis. Past Medical History: Diagnosis Date Breast cancer (HCC) invasive ductal Hematuria, microscopic 2014 intermittent resolved now Sarcoidosis Past Surgical History: Procedure Laterality Date BREAST CAPSULECTOMY, PERIPROSTHETIC 07/02/2013 PERIPROSTHETIC CAPSULECTOMY BREAST performed by Delio Chan [place] [facility] [place] RECONSTRUCTION 04/21/12 I 04/21/2012 mmediate reconstruction of bilateral breasts with adjustable implant to be utilized for expansion and acellular dermal matrix 04/21/12 Dr. Chan at [facility] BRONCHOSCOPY, DIAGNOSTIC N/A 01/28/2016 BRONCHOSCOPY DIAGNOSTIC WITH OR WITHOUT WASHING performed by Bill Farmer MD [place] [facility] DILATION AND CURETTAGE (D&C) 06/2008 D&C at [place], [place] EGD, FLEXIBLE, DIAGNOSTIC 11/23/2018 gastritis/ESOPHAGOGASTRODUODENOSCOPY (EGD), FLEXIBLE, TRANSORAL, DIAGNOSTIC performed by Lavelle Ruiz MD at ENDOSCOPY [facility] EGD, FLEXIBLE,W/ENDOSCOPIC US 10/03/2019 lymph node, peripancreatic bx - metastatic cancer, IPMN / INPT [facility] ERCP 10/03/2019 choledocholithiasis / INPT [facility] EXPLORATION OF ABDOMEN 01/14/2014 EXPLORATORY LAPAROTOMY performed by Danae Ceron MD at [facility] LAPAROSCOPY; CHOLECYSTECTOMY 09/2019 LAPAROSCOPY;RMV ADNEXAL STRUCT 01/14/2014 LAPAROSCOPIC OOPHORECTOMY AND OR SALPINGECTOMY performed by Danae Ceron MD at [facility] MASTECTOMY, MODIFIED RADICAL 04/21/12 04/21/2012 Right mastectomy with right axillary lymph node dissectiona nd left prophylactic mastectomy 04/21/12 Dr. Carbajal at [facility] MASTECTOMY,RADICAL 2011 OTHER (INFORMATION) 11/1986 Left ankle surgery, [place], [place] OVARY/TUBAL CANCR RESEC W/SALPINGO-OOPHEREC 01/14/2014 REMOV GLO ROBI DEQUAN ACC DEV,WITH 02/18/14 Removal of A port left chest 02/18/14 Dr. Carbajal in the clinic REMOVAL OF OVARY/OVIDUCT(S) 2013 preventive for breast cancer , uterus and cervix intact REPLACE TISSUE BOTTLE CASER 07/02/2013 REPLACEMENT EXPANDERS WITH PERMANENT PROSTHESIS performed by Delio Chan MD at [facility] SKIN TISSUE REARRANGEMENT 07/02/2013 SKIN TISSUE REARRANGEMENT performed by Delio Chan MD at [facility] SKIN TISSUE REARRANGEMENT, ADD-ON 07/02/2013 SKIN TISSUE REARRANGEMENT, ADD-ON performed by Delio Chan MD at [facility] TOTAL ABD HYSTERECTOMY W/WO REMOVAL OF TUBE(S) 01/14/2014 lap BSO , uterus intact Current Outpatient Medications Medication Sig Dispense Refill Calcium 600 MG Oral Tablet Take by mouth. 100 Tab 11 ondansetron (ZOFRAN) 8 MG Tablet Take 1 Tab by mouth every 8 hours as needed for Nausea. 30 Tab 3 prochlorperazine (COMPAZINE) 10 MG Tablet Take 1 Tab by mouth every 6 hours as needed for Nausea. 30 Tab 3 traZODone HCl 50 MG Oral Tablet (Desyrel) [...] No current facility-administered medications for this visit. On exam: Constitutional: Patient is alert, cooperative and oriented x 3. Well built woman, Patient is in no acute distress. HEENT: No icterus, no pallor, Throat and pharynx normal. Sinuses are non-tender. Neck: Supple and without lymphadenopathy or masses. No JVD. No Palpable supraclavicular lymph nodes. Lungs: Clear to auscultation. Bilateral symmetric air entry. No wheezing or rhonchi. Cardiovascular: Normal heart sounds, no murmurs.Regular rate and rhythm. Abdomen: soft, nontender, no hepatomegaly, no splenomegaly. Bowel sounds are normal. Neurological: No gross focal neurological deficit; walks with a normal gait. Extremities: No finger clubbing, No cyanosis. No leg edema. Skin:: No skin rash. SPINE: No spinal or paraspinal tenderness. No upper extremity lymphedema No palpable lymphadenopathy. IMAGING: -CT scan of the chest done on 01/20/2017 showed interval decrease in the lymph nodes noted in the chest, stable lung nodules. CT scan of the chest, abdomen and pelvis (11/13/2018) - 6 x 5 mm right apical nodule which appears to be new. - Multiple stable to 3 mm bilateral lung nodules. - Stable right subcarinal lymph node measuring 1.3 cm, significantly smaller when compared with 2016 making study. - No liver lesion - Mild enlarged bilateral lymph nodes, left para-aortic lymph node 1.1 cm (previously once-a-day). - Shotty periaortic and aortocaval lymph node, slightly increased when compared to previous imagingstudy done in 2016. CT scan of chest, abdomen pelvis (04/17/2019) -S/P bilateral mastectomies with reconstruction changes noted - No definite metastatic disease notedAnywhere else -Shotty stable retropeitoneal and mesentery lymph nodes noted -Stable multiple punctateLung nodules. MRI of the abdomen (11/13/2019: No mass is seen in the inferior right hepatic lobe to correspond to increased uptake on prior PET-CT. Nonspecific signal alteration and enhancement medial aspect segment 7/620 6 x 17 mm, possibly postsurgical change. Three month follow-up MRI is suggested. Gastrohepatic ligament enlarged lymph node corresponding to increased FDG uptake. Additional shottyright upper quadrant and retroperitoneal lymph nodes. These are nonspecific given the history. No findings to correspond to the FDG avid uptake in the right upper quadrant jorge duodenal region and left upper quadrant jorge pancreatic tail region. No ascites or metastatic implants appreciated. PET-CT scan (03/19/2020: 1. No definite FDG avid recurrent or residual neoplastic disease. 2. Interval resolution of the previously seen abdominal and cervical lymphadenopathy. PET-CT scan (07/23/2020: No metabolically active disease noted anywhere else. CT scan of chest, abdomen and pelvis done in November 2020 --> no suspicious findings noted. CT scan of the chest, abdomen and pelvis (05/29/2021) --> no new suspicious findings noted. CT scan of chest, abdomen and pelvis (11/30/2021 --> no abnormal findings noted. CT scan of chest, abdomen pelvis (06/09/2022 ) --> No metastatic disease identified in the chest,abdomen or pelvis. CT scan of the chest, abdomen and pelvis (02/09/2023). 1. Trace free fluid in the pelvis, [...] correlation with urinalysis to evaluate for infection. LABORATORY DATA: Blood workup done on 02/04/2023: -BUN/Creat: 17/1.2, Calcium 9.7, normal liver function test -WBC 3800, H&H of 13.4/41.3, Platelet count [id number]. ASSESSMENT AND PLAN: 52-year-old female, a case of right breast the carcinoma multifocal disease (intraductal as well as lobular carcinoma), opted for bilateral mastectomies done in April,, T3 N3 a M0, stage IIIC, S/P 4 cycles of AC followed by 12 cycles of weekly paclitaxel, S/P adjuvant radiation treatment, received Zoladex earlier, S/P bilateral oophorectomy in January,, now she is off the Zoladex, on tamoxifen since January,. She had increasing shortness of breath earlier in Dec, 2015, found to have metabolically active mediastinal lymphadenopathy, biopsy from that confirmed the diagnosis sarcoidosis, she follows up with Dr. Farmer, she is on Advair inhaler, significant improvement of the pulmonary symptoms. In late September 2019, she was admitted at [facility] for symptomatic cholecystitis, underwent laparoscopic cholecystectomy, she also had some periportal lymphadenopathy, biopsy from that lymph node showed metastatic breast cancer, ER 100% positive in malignant cells (weak to intermediate), ME negative, Her2/Maximilian 2+. FISH negative. PET-CT scan, shows some peripancreatic hypermetabolic focus which could be related to pancreatitis,liver lesion noted on on the PET scan which is not clearly seen on the CT scan portion. She had a follow-up MRI of the abdomen which did not show any liver lesion, some upper abdominal lymphadenopathy noted, which could be related to the metastatic breast cancer versus reactive lymphadenopathy. Now she is on ribociclib and letrozole since 11/2019. She had some diarrhea which required a dose reduction of ribociclib to 400 mg which she has tolerated well. She had several imaging studies since then, latest imaging studies done in February 2023, no evidence of recurrent disease noted anywhere else. Left renal pelvis urothelial enhancement. No active urinarysymptoms, urinalysis was unremarkable. Recently she was admitted at [facility] for high-grade small- bowel obstruction, most likely because of some adhesions. She had a cholecystectomy and oophorectomy in the past (laparoscopically) treated conservatively. Now improvement of the abdominal symptoms noted. She will have blood workup today, urinalysis today. I would hold letrozole and the ribociclib for additional 1 week and then if she has no new problem,she can resume the treatment next week She already has an appointment with me in August 2023. Will keep that appointment , she will another CT scan in August 2023. Dr. Cory Infante Hem/Onc (This note was completed using the dictation program Fluency Direct. As such, there may be misspellings word substitutions, or other variations that should not change the essence of the clinical content of this encounter note. If there is need for further clarification, please direct questions to the provider listed above.) documented in this encounter Nursing Notes * Ania Teague CMA - 04/27/2023 11:50 AM EDT Patient identifed by name and birthdate Do you have any concerns about pain management for today's visit? YES Living Will or Advance Directive for Health Care as noted on the problem list. [facility] is a way you can talk to your provider on line through e-mail. Would you like to sign up? I can activate it for you? ALREADY ACTIVE Filed Vitals: 04/27/23 1150 BP: 135/85 Pulse: 66 Resp: 16 SpO2: 98% Weight: 84.2 kg (185 lb 9.6 oz) Patient was instructed to not get up on the exam table/exam chair until directed and assisted by their provider; patient is to remain seated in the chair/ wheelchair/ exam table/ exam chair for fall prevention and safety reasons. Patient is aware to have assistance to step down off exam table/exam chair with personnel. Patient voiced full comprehension of instructions. documented in this encounter Plan of Treatment Upcoming Encounters Date Type Specialty Care Team Description 04/29/2023 Pharmacy Pharmacy [facility] Hem/Onc [address] [facility] [place] [address] 05/09/2023 Hospital Encounter Endoscopy Raheem Hagen MD [address] [facility] [place] [address] 05/09/2023 Surgery Endoscopy Raheem Hagen MD [address] [place] [address] COLONOSCOPY FLEXIBLE PROXIMAL DIAGNOSTIC 05/11/2023 Imaging Radiology 05/26/2023 Office Visit Dermatology Donita Cornejo PA-C [address] [place] [address] [place] [address] 08/11/2023 Office Visit Gastroenterology Gaudencio Norris CRNP [address] [place] [address] 08/23/2023 Imaging Radiology 08/30/2023 Office Visit Hematology Oncology Cory Infante MD [address] [facility] [place] [address] 12/26/2023 Office Visit Urology Charles Galvan MD [address] [place] [address] Scheduled Procedures Name Priority Associated Diagnoses Date/Ti [...] Tdap) 11/03/2023 11/02/2013 CKD PHOS USE SMARTSET 33281 12/02/2023 04/01/2023, 10/12/2021, 02/07/2020 CKD HGB USE SMARTSET 18114 04/27/202404/27, 04/27/2023, 02/04/2023, Additional history exists Diabetes Screening 04/27/2026 04/27/2023, 0 02/04/2023, 12/01/2022, Additional history exists Pneumococcal Vaccine: Pediatrics (0 to 5 Years) and At-Risk Patients (6 to 64 Years) (3 - PPSV23 or PCV20) 10/01/2026 10/01/2021, 05/26/2020 Lipid Panel 12/02/2027 12/01/2022, 0302/2022, 11/03/2020, Additional history exists COVID-19 Vaccine Completed 07/28/2022, , 05/11/2021, Additional history exists Zoster Vaccines Completed 01/06/2023, 10/28/2022 GARDASIL-HPV IMMUNIZATION SERIES Aged Out No longer eligible based on patient's age to complete this topic MENINGOCOCCAL (MENACTRA/MENVEO) Aged Out No longer eligible based on patient's age to complete this topic documented as of this encounter Medical Devices Implanted Type Area Educational Director Device Identifier Shelf Expiration Date Model / Serial / Lot Implant Hi Prof Gel 750cc - [id number] Implanted:Qty: 1 on 07/02/2013 [place] [facility] [place]: Breast [employer] 04/01/2014 [id number] / [id number] / [id number] documented as of this encounter Visit Diagnoses Diagnosis Malignant neoplasm of overlapping sites of both breasts in female, estrogen receptor positive (HCC)- Primary 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 Question Answer Comments Discussion of Advance Directives occurred with: Not Discussed Care Teams Duct Layer Relationship Specialty Start Date End Date Susie White MD [address] [facility] [place], [place] [address] PCP - General Internal Medicine 03/02/12 documented as of this encounter
--- OUTSIDE RECORDS SUMMARY | 2023-07-03 02:46 | External Medical Summary | Summary of Care ---
Author Name Unknown Organization [facility] Address [address] [place] [address] Phone [phone] Care Team Providers Care Occupational Therapist Assistant Name Role Phone Susie White MD Primary Care Provider [phone] Reason for Referral * Evaluate & Treat - Unlimited Visits (Within 30 days (routine)) - Pending Review Specialty Diagnoses / Procedures Referred By Crystal chandler Referred To Contact Urology Diagnoses Bladder wall thickening Hydronephrosis, unspecified hydronephrosis type Susie White MD [address] [place] [address] Referral ID Status Reason Start Date Expiration Date Visits Requested Visits Authorized [id number] Pending Review Specialty Services Required 04/27/[phone] Question Answer Referral Priority Within 30 days (routine) What is the patient being referred for? Other conditions Comments Bladder thickening with mild hydro . H/o breast ca * (Within 10 days (routine)) - Pending Review Specialty Diagnoses / Procedures Referred By Crystal chandler Referred To Contact Radiology Diagnoses Bladder wall thickening Hydronephrosis, unspecified hydronephrosis type Procedures US RENAL Susie White MD [address] [place] [address] Referral ID Status Reason Start Date Expiration Date V isits Requested Visits Authorized [id number] Pending Review 05/11/[phone] * Evaluate & Treat - Unlimited Visits (Within 30 days (routine)) - Pending Review Specialty Diagnoses / Procedures Referred By Crystal chandler Referred To Contact Gastroenterology Diagnoses SBO (small bowel obstruction) (HCC) Intussusception of small bowel (HCC) Susie White MD [address] [place] [address] Referral ID Status Reason Start Date Expiration Date Visits Requested Visits Authorized [id number] Pending Review Specialty Services Required 04/27/[phone] Question Answer Referral Priority Within 30 days (routine) For what condition is the patient being referred? All Gastro Conditions Comments Admitted with SBO , still with some symptoms but much better . Also intussusception opf small bpwel seen in February CT and in ER. H/o of metastatic breast ca and on immunotherapy Reason for Visit * Reason Onset Date Comments Hospital Follow-Up [facility] d/c 04/24--still having minimal pain when she eats. 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 100 Tab 11 09/08/2012 Active traZODone HCl 50 MG Oral Tablet (Desyrel)Indications: Other insomnia Take 1 Tablet by mouth at bedtime. 90 Tablet 3 10/12/2022 Active Letrozole 2.5 MG Oral Tablet (Femara)Indications:M alignant neoplasm of overlapping sites of both breasts in female, estrogen receptor positive,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),Liver lesion,Intra-abdomina l lymphadenopathy Take 1 Tablet by mouth in the morning. 90 Tablet 3 10/12/2022 Active Kisqali (400 MG Dose) 200 MG Oral Tablet Therapy Pack (Ribociclib Succ (400 MG Dose))Indications:Mal ignant neoplasm of overlapping sites of both breasts in female, estrogen receptor positive Take 400 mg by mouth in the morning. For 21 days on, 7 days off of a 28 day cycle. 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 30 Tab 3 10/19/2019 3 Discontinued documented as of this encounter (statuses as of 05/03/2023) Active Problems Problem Noted Date Stage 3a [...] as of this encounter (statuses as of 05/03/2023) Resolved Problems Problem Noted Date Resolved Date [...] B47 PI Name: Cory Infante MD PI [facility] Name: Molly Chowdhury [facility] Contact PI or [employer] regarding any serious medical event, if new [...] B47 PI Name: Cory Infante MD PI [facility] Name: Molly Chowdhury [facility] Contact PI or [employer] regarding any serious medical event, if new Rx given, ER visit, hospitalization, or billing question Diagnosis changed due to Research Module. Go to Snapshot for study details. 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 documented as of this encounter (statuses as of 05/03/2023) Immunizations Name Administration Dates Next Due COVID-19 [...] Sign Reading Time Taken Comments Blood Pressure 112/72 04/27/2023 10:55 AM EDT Pulse 57 04/27/2023 10:55 AM EDT Temperature 37.2 C (99 F) 04/27/2023 10: 55 AM EDT Respiratory Rate - - Oxygen Saturation 99% 04/27/2023 10: 55 AM EDT Inhaled Oxygen Concentration - - Weight 84.3 kg (185 lb 14.4 oz) 023 10:55 AM EDT Height 167.6 cm (5' 6") 04/27/2023 10:5 5 AM EDT Body Mass Index 30.01 04/27/2023 10:55 AM EDT documented in this encounter Progress Notes * Susie White MD - 04/27/2023 11:04 AM EDT SUBJECTIVE: Shante Cordoba is a 52 year old female. Chief Complaint Patient presents with Hospital Follow-Up [facility] d/c 04/24/2023--still having minimal pain when she eats. HPI: 52-year-old female with PMH significant for left multifocal breast cancer stage IIIC s/p bilateral mastectomy with reconstruction and undergoing chemo presents here for hospital follow up. Pt was having intermittent abdominal pain after meal for few weeks, but it got worse with severe pain . Presented to hospital on 04/21/23 . She was found to have SBO. She was then admitted and treatedwith conservative management with bowel rest and IV fluid. Labs were overall normal at baseline andurine was negative for infection although initial 1 came back suspicious and Imaging CT of abdomen/pelvis showed small-bowel obstruction with thickening of mucosa at the transition line, also there was some infiltration in the mesentery but no enlarged lymph node, thickening of bladder wall with mild hydronephrosis both sides. She was seen by urologist and suggested to manage conservatively specia lly if she does not have any symptom of hydronephrosis after ruling out UTI . Rest of the hospital course unremarkable . She was sent home on 04/19/23 on home medication. Since discharge feeling much better . Hospital records reviewed and updated. The patient's medication list was reviewed and updated as needed. Current issues now- -feels almost 70% better but still has mild pain after eating meal of does not matter what it is and goes away in few minutes or an hour. Pain is not as severe as when she went to hospital. Needs to set up with GI appointment. Already has colonoscopy scheduled 2 weeks from now -reviewed her CT scan of abdomen and pelvis from February which showed some Small bowel small bowel intussusception in the left lower quadrant . No upstream small bowel obstruction. 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 Review of patient's allergies indicates: No Known Allergies Past Medical History: Diagnosis Date Breast cancer (HCC) invasive ductal Hematuria, microscopic 2015 intermittent resolved now Sarcoidosis Past Surgical History: Procedure Laterality Date BREAST CAPSULECTOMY, PERIPROSTHETIC 07/02/2013 PERIPROSTHETIC CAPSULECTOMY BREAST performed by Delio Chan MD at OR [facility] BREAST RECONSTRUCTION 04/21/12 I 04/21/2012 mmediate reconstruction of bilateral breasts with adjustable implant to be utilized for expansion and acellular dermal matrix 04/21/12 Dr. Chan at [facility] BRONCHOSCOPY, DIAGNOSTIC N/A 01/28/2016 BRONCHOSCOPY DIAGNOSTIC WITH OR WITHOUT WASHING performed by Bill Farmer MD at ENDOSCOPY [facility] DILATION AND CURETTAGE (D&C) 06/2008 D&C at [place], [place] EGD, FLEXIBLE, DIAGNOSTIC 11/23/2018 gastritis/ESOPHAGOGASTRODUODENOSCOPY (EGD), FLEXIBLE, TRANSORAL, DIAGNOSTIC performed by Lavelle Ruiz MD at ENDOSCOPY [facility] EGD, FLEXIBLE,W/ENDOSCOPIC US 10/03/2019 lymph node, peripancreatic bx - metastatic cancer, IPMN / INPT [facility] ERCP 10/03/2019 choledocholithiasis / INPT [facility] EXPLORATION OF ABDOMEN 01/14/2014 EXPLORATORY LAPAROTOMY performed by Danae Ceron MD at [facility] LAPAROSCOPY; CHOLECYSTECTOMY 09/2019 LAPAROSCOPY;RMV ADNEXAL STRUCT 01/14/2014 LAPAROSCOPIC OOPHORECTOMY AND OR SALPINGECTOMY performed by Danae Ceron MD at [facility] MASTECTOMY, MODIFIED RADICAL 04/21/12 04/21/2012 Right mastectomy with right axillary lymph node dissectiona nd left prophylactic mastectomy 04/21/12 Dr. Carbjaal at [facility] MASTECTOMY,RADICAL 2011 OTHER (INFORMATION) 11/1986 Left ankle surgery, [place], [place] OVARY/TUBAL CANCR RESEC W/SALPINGO-OOPHEREC 01/14/2014 REMOV GLO ROBI DEQUAN ACC DEV,WITH 02/18/14 Removal of A port left chest 02/18/14 Dr. Carbajal in the clinic REMOVAL OF OVARY/OVIDUCT(S) 2013 preventive for breast cancer , uterus and cervix intact REPLACE TISSUE NCR OPERATOR 07/02/2013 REPLACEMENT EXPANDERS WITH PERMANENT PROSTHESIS performed by Delio Chan MD at [facility] SKIN TISSUE REARRANGEMENT 07/02/2013 SKIN TISSUE REARRANGEMENT performed by Delio Chan MD at [facility] SKIN TISSUE REARRANGEMENT, ADD-ON 07/02/2013 SKIN TISSUE REARRANGEMENT, ADD-ON performed by Delio Chan MD at [facility] TOTAL ABD HYSTERECTOMY W/WO REMOVAL OF TUBE(S) 01/14/2014 lap BSO , uterus intact Family History Problem Relation Age of Onset Alzheimer's disease Mother 63 both AD and vascular Hypertension Mother Cancer Sister 23 SCC Cancer Grandmother (Maternal) skin ca Colon cancer Aunt (Unspecified) 65 dad side Social History Socioeconomic History Marital status: Number of children: 2 Occupational History 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: [employer] Tobacco Use Smoking status: Never Smokeless tobacco: Never Substance and Sexual Activity Alcohol use: Yes Comment: occasional Drug use: No Social Determinants of Health Food Insecurity: No Food Insecurity Worried About Running Out of Food in the Last Year: Never true Ran Out of Food in the Last Year: Never true Family History Problem Relation Age of Onset Alzheimer's disease Mother 63 both AD and vascular Hypertension Mother Cancer Sister 23 SCC Cancer Grandmother (Maternal) skin ca Colon cancer Aunt (Unspecified) 65 dad side REVIEW OF SYSTEMS: All 10 systems reviewed and negative except mentioned in HPI OBJECTIVE: BP 112/72 | Pulse 57 | Temp 37.2 C (99 F) (Tympanic) | Ht 1.676 m (5' 6") | Wt 84.3 kg (185 lb 14.4 oz) | LMP 01/06/2013 | SpO2 99% | BMI 30.01 kg/m | BSA 1.98 m PHYSICAL EXAM: General: alert, healthy, and no distress Head: Normocephalic, No masses, lesions, tenderness or abnormalities Oropharynx: no exudate, no erythema, lips, buccal mucosa, and tongue normal, and mucous membranes are moist Neck: supple, no adenopathy, no bruits, thyroid normal size, non-tender, without nodularity Heart: regular rate & rhythm, no murmur, and no gallops Lungs: chest symmetric with normal AP diameter, no chest deformities noted, no chest wall tenderness, lungs clear to auscultation Abdomen: abdomen soft, normal bowel sounds, no masses or organomegaly, and sensitive and mildly tender diffusely but not significant, bowel sound increased Extremities: less than 2 second capillary refill, no joint deformities, effusion, or inflammation ASSESSMENT AND PLAN SBO (small bowel obstruction) (HCC) (Primary) - GASTROENTEROLOGY REFERRAL OP - XR ABDOMEN OBSTRUCT SERIES W CHEST 1 VIEW Intussusception of small bowel (HCC) - GASTROENTEROLOGY REFERRAL OP Bladder wall thickening - US RENAL; Future; Expected date: 05/11/2023 - UROLOGY REFERRAL OP - URINALYSIS WITH MICROSCOPIC EXAM; Future; Expected date: 04/27/2023 - CULTURE, URINE, QUANTITATIVE; Future; Expected date: 04/27/2023 Hydronephrosis, unspecified hydronephrosis type - US RENAL; Future; Expected date: 05/11/2023 - UROLOGY REFERRAL OP Stage 3a chronic kidney disease Malignant neoplasm of overlapping sites of both breasts in female, estrogen receptor positive (HCC) 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 Patient verbalizing understanding. This note was prepared with the help of fluency and if there is any mis-spelled words , sentences or something which doesn't represent the content of the subject that could be technical error and please refer to the author for clarification. Susie White MD 11:04 AM 04/27/2023 documented in this encounter Nursing Notes * Sierra Valente LPN - 04/27/2023 10:55 AM EDT Chief Complaint Patient presents with Hospital Follow-Up [facility] d/c 04/24/2023--still having minimal pain when she eats. documented in this encounter Plan of Treatment Upcoming Encounters Date Type Specialty Care Team Description 05/04/2023 Pharmacy Pharmacy [facility] [address] [facility] [address] 05[facility]09[facility]2023 Hospital Encounter Endoscopy Raheem Hagen MD [address] [place] [id number] 05/09/2023 Surgery Endoscopy Raheem Hagen MD [address] [place] [address] COLONOSCOPY FLEXIBLE PROXIMAL DIAGNOSTIC 05/11/2023 Imaging Radiology 05/26/2023 Office Visit Dermatology Donita Cornejo PA-C [address] [place] [address] [place] [address] 08/11/2023 Office Visit Gastroenterology Gaudencio Norris CRNP [address] [place] [id number] 08/23/2023 Imaging Radiology 08/30/2023 Office Visit Hematology Oncology Cory Infante MD [address] [place] [address] 12/26/2023 Office Visit Urology Charles Galvan MD [address] [facility] [address] [place] [id number] Scheduled Orders Name Type Priority Associated Diagnoses Orde r Schedule US RENAL Medical Imaging Routine Bladder wall thickening Hydronephrosis, unspecified hydronephrosis type Expected: 05/11/2023, Expires: 05/27/2024 Scheduled Procedures Name Priority Associated Diagnoses Date/Ti me COLONOSCOPY FLEXIBLE PROXIMAL DIAGNOSTIC Screen for colon cancer 05/09/2023 8:30 AM EDT Scheduled Referrals Name Type Priority Associated Diagnoses Orde r Schedule GASTROENTEROLOGY REFERRAL OP Referral Within 30 days (routine) SBO (small bowel obstruction) (HCC) Intussusception of small bowel (HCC) Ordered: 04/27/2023 UROLOGY REFERRAL OP Referral Within 30 da ys (routine) Bladder wall thickening Hydronephrosis, unspecified hydronephrosis type Ordered: 04/27/2023 Health Maintenance Due Date Last Done Comments [...] Tdap) 11/03/2023 11/02/2013 CKD PHOS USE SMARTSET 80021 12/02/2023 04/2 01/2023, 10/12/2021, 02/07/2020 CKD HGB USE SMARTSET 87257 04/27/202404/27, 04/27/2023, 02/04/2023, Additional history exists Diabetes [...] this encounter Medical Devices Implanted Type Area Patent Searcher Device Identifier Shelf Expiration Date Model / Serial / Lot Implant Hi Prof Gel 750cc - [id number] Implanted:Qty: 1 on 07/02/2013 at OR [facility] Left: Breast MENTOR DARVIN 04/01/2014 [id number] / [id number] / [id number] documented as of this encounter Procedures Procedure Name Priority Date/Time Associated Diagnosis Comments XR ABDOMEN OBSTRUCT SERIES W CHEST 1 VIEW STAT 04/27/2023 12:38 PM EDT SBO (small bowel obstruction) (HCC) documented in this encounter Results * XR ABDOMEN OBSTRUCT SERIES W CHEST 1 VIEW (04/27/2023 12:38 PM EDT) Anatomical Region Laterality Modality Abdomen, Pelvis Computed Radiogr aphy 04/27/2023 1:44 PM EDT Impressions 04/27/2023 1:41 PM EDT IMPRESSION Moderate amount of stool in the colon. Nonspecific and nonobstructive bowel gas pattern. Narrative 04/27/2023 1:41 PM EDT EXAM XR ABDOMEN OBSTRUCT SERIES W CHEST 1 VIEW-04/27/2023 12:38 pm HISTORY recent SBO - better but still with pain after meal COMPARISON CT dated 02/09/2023 TECHNIQUE Acute abdominal series with PA chest FINDINGS The cardiac silhouette is normal in size. There are no pulmonary consolidations, pleural effusions or pneumothorax. There is no free air under the hemidiaphragms. There are surgical clips in the gallbladder fossa. Moderate amount of stool is seen in the colon. The bowel gas pattern is nonspecific and nonobstructive. No acute bone abnormality is noted. Procedure Note Hilda Aragon MD - 04/27/2023 EXAM XR ABDOMEN OBSTRUCT SERIES W CHEST 1 VIEW-04/27/2023 12:38 pm HISTORY recent SBO - better but still with pain after meal COMPARISON CT dated 02/09/2023 TECHNIQUE Acute abdominal series with PA chest FINDINGS The cardiac silhouette is normal in size. There are no pulmonaryconsolidations, pleural effusions or pneumothorax. There is no free airunder the hemidiaphragms. There are surgical clips in the gallbladder fossa. Moderate amount ofstool is seen in the colon. The bowel gas pattern is nonspecific andnonobstructive. No acute bone abnormality is noted. IMPRESSION IMPRESSION Moderate amount of stool in the colon. Nonspecific and nonobstructivebowel gas pattern. Susie White MD RADIOLOGY (RAD GENER AL) * CULTURE, URINE, QUANTITATIVE (04/27/2023 12:24 PM EDT) Culture Growth No significant growth 04/28/2023 10:46 AM EDT LABORATORY C Urine Urine specimen obtained by clean catch procedure / Unknown Non-blood Collection / Unknown 04/27/2023 12:24 PM EDT 04/27/2023 12:24 PM EDT Susie White MD LAB MICRO - GENERAL ORDERABLES LABORATORY [facility] [address] [place] [address] * URINALYSIS WITH MICROSCOPIC EXAM (04/27/2023 12:24 PM EDT) Color, Urine Yellow Light Yellow, Yellow, Dark Yellow 04/27/2023 12:43 PM EDT [address] Clarity, Urine Clear Clear 04/27/2023 12:43 [address]T [address] Glucose, Urine Negative Negative mg/dL 04/27/2023 12:43 PM EDT [address] Bilirubin, Urine Negative Negative 04/27/2023 12:43 [address]T [address] Ketone, Urine Negative Negative mg/dL 04/27/2023 12:[address]T [address] Specific [place], Urine 1.015 1.003 - 1.030 04/27/2023 12:43 PM EDT [address] Blood, Urine Negative Negative 04/27/2023 12:[address] pH, Urine 7.5 5.0 - 7.5 Units 04/27/2023 12:43 [address]T [address] Protein, Urine Negative Negative mg/dL 04/27/2023 12:[address] Urobilinogen, Urine 0.2 0.2, 1.0 mg/dL 04/27/2023 12:[address] Nitrite, Urine Negative Negative 04/27/2023 12:[address] Esterase, Urine Negative Negative 04/27/2023 12:[address] RBC, Urine 0-2 0 - 2 /HPF 04/27/2023 12:[address] WBC, Urine 0-2 0 - 2 /HPF 04/27/2023 12:43 PM EDT [address] Bacteria, Urine 0-25 0 - 25 /HPF 04/27/2023 12:43 PM EDT [facility] 56-02 Urine Urine specimen obtained by clean catch procedure / Unknown Non-blood Collection / Unknown 04/27/2023 12:24 PM EDT 04/27/2023 12:24 PM EDT Susie White MD LAB URINE ORDERABLES [facility] [address] [facility] [address] documented in this encounter Visit Diagnoses Diagnosis SBO (small bowel obstruction) (HCC)- Primary Unspecified intestinal obstruction Intussusception of small bowel (HCC) Intussusception Bladder wall thickening Other specified disorders of bladder Hydronephrosis, unspecified hydronephrosis type Stage 3a chronic kidney disease Malignant neoplasm of overlapping sites of both breasts in female, estrogen receptor positive 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) Secondary and unspecified malignant neoplasm of intra-abdominal lymph nodes Microscopic hematuria 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 Sarcoidosis Liver lesion Other specified disorders of liver Intra-abdominal lymphadenopathy Enlargement of lymph nodes Hyperlipidemia with target LDL less than 130 Other and unspecified hyperlipidemia Adjustment insomnia Transient disorder of initiating or maintaining sleep Hospital discharge follow-up Other follow-up examination Screen for colon cancer Special screening for [...] Directives occurred with: Not Discussed Care Teams Occupational Therapist Assistant Relationship Specialty Start Date End Date Susie White MD [address] [facility] [place] [address] PCP - General Internal Medicine 03/02/12 documented as of this encounter
--- OUTSIDE RECORDS SUMMARY | 2023-07-03 02:46 | External Medical Summary | Summary of Care ---
Author Name Unknown Organization [facility] Address [address] [place] [address] Phone [phone] Care Team Providers Care Hard Rock Drill Operator Name Role Phone Susie White MD Primary Care Provider [phone] Reason for Visit * Reason Onset Date Comments Abdominal Pain 04/21/2023 Encounter Details Date Type Department Care Team Description 04/21/2023 Telephone Hematology/Oncology Treatment, [place] [address] [place] [address] Cory Infante MD [address] [place] [address] Abdominal Pain Allergies No known active allergiesdocumented as of this encounter (statuses as of 04/22/2023) Medications Medication Sig Dispensed Refills Start Date [...] as of this encounter (statuses as of 04/22/2023) Active Problems Problem Noted Date Stage 3a [...] as of this encounter (statuses as of 04/22/2023) Resolved Problems Problem Noted Date Resolved Date [...] Infante MD PI CRC Name: Molly Chowdhury [facility] Contact PI or CHILD ABUSE WORKER regarding any serious medical event, if [...] Infante MD PI CRC Name: Molly Chowdhury [facility] Contact PI or CHILD ABUSE WORKER regarding any serious medical event, if new Rx given, ER visit, hospitalization, or billing question Diagnosis changed due to Research Module. Go to Snapshot for study details. 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 She went to ER last night and is admitted with a bowel obstruction. She is currently NPO. This is her off week from [facility], but she wanted to make sure that it is ok that she not take her letrozole since they are not letting her have anything by mouth at this time. Advised her thatthis is ok, will update Dr Infante on status. Dr Infante: JENNIFER * Telephone Encounter - Tessa Ramirez RN - 04/21/2023 10:56 AM EDT Spoke with patient regarding her pain, transferred from call center. She states that she has had stomach pain since last week. She states that it is an 8/10 when it happens. When it subsides it is about a 4/10. She states that tylenol does help with the pain. She states that it is in her upper middle abdomen. She denies Reflux, vomiting, diarrhea and constipation. She states that she does have some nausea. Reviewed with [facility] pharmacist, [facility], most likely un/rt the kisqali since she has been on it since 2019, if it does not improve by tomorrow, recommend pt f/u with PCP. Pt is on off week of kisqali starting today. If it does improve while she is on her off week of kisqali that it could be r/t to the med. Reviewed this w patient. She will update us tomorrow. AZM: JENNIFER documented in this encounter Plan of Treatment Upcoming Encounters Date Type Specialty Care Team Description 04/28/2023 Laboratory Laboratory [place] [address] [place] [address] 04/29/2023 Pharmacy Pharmacy [facility] Hem/Onc [address] [place], [place] [phone] 05/09/2023 Hospital Encounter Endoscopy Raheem Hagen MD [address] [place] [address] 05/09/2023 Surgery Endoscopy Raheem Hagen MD [address] [place] [address] COLONOSCOPY FLEXIBLE PROXIMAL DIAGNOSTIC 05/26/2023 Office Visit Dermatology Donita Cornejo PAAlly [address] [place] [address] [place] [address] 08/23/2023 Imaging Radiology 08/30/2023 Office Visit Hematology Oncology Cory Infante MD [address] [place] [address] Scheduled Procedures Name Priority Associated Diagnoses Date/Ti [...] Tdap) 11/03/2023 11/02/2013 CKD PHOS USE SMARTSET 80901 12/02/202311/07, 10/12/2021, 02/07/2020 CKD HGB USE SMARTSET 18257 02/05/202402/04, 02/04/2023, 12/01/2022, Additional history exists Diabetes [...] this encounter Medical Devices Implanted Type Area Nurse Emergency Room Device Identifier Shelf Expiration Date Model / Serial / Lot Implant Hi Prof Gel 750cc - [id number] Implanted:Q[place]: 1 on 07[place]02[place]2013 [place] [facility] [place] Breast MENTOR DARVIN 04/01/2014 [id number] / [id number] / [id number] documented as of this encounter Advance Directives [...] Directives occurred with: Not Discussed Care Teams Hard Rock Drill Operator Relationship Specialty Start Date End Date Susie White MD [address] [place] [address] PCP - General Internal Medicine 03/02/12 documented as of this encounter
--- OUTSIDE RECORDS SUMMARY | 2023-07-03 02:46 | External Medical Summary | Summary of Care ---
Author Name Unknown Organization [facility] Address [address] [place] [address] Phone [phone] Care Team Providers Care Automatic Lump Making Machine Tender Name Role Phone Susie White MD Primary Care Provider Reason for Visit * Reason Onset Date Comments Abdominal Pain 04/21/2023 Encounter Details Date Type Department Care Team Description 04/21/2023 Telephone Hematology/Oncology Treatment, [place] [address] [place] [address] Cory Infante MD [address] [place] [address] Abdominal Pain Allergies No known active allergiesdocumented as of this encounter (statuses as of 04/21/2023) Medications Medication Sig Dispensed Refills Start Date [...] as of this encounter (statuses as of 04/21/2023) Active Problems Problem Noted Date Stage 3a [...] as of this encounter (statuses as of 04/21/2023) Resolved Problems Problem Noted Date Resolved Date [...] Infante MD PI CRC Name: Molly Chowdhury [facility] Contact PI or WRAPPER SIZER regarding any serious medical event, if new [...] Infante MD PI CRC Name: Molly Chowdhury [facility] Contact PI or WRAPPER SIZER regarding any serious medical event, if new Rx given, ER visit, hospitalization, or billing question Diagnosis changed due to Research Module. Go to Snapshot for study details. 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 Reviewed with [place] pharmacist, Itzel Toscano [facility], most likely un/rt the kisqali since she [...] w patient. She will update us tomorrow. MTM: JENNIFER documented in this encounter Plan of Treatment Upcoming Encounters Date Type Specialty Care Team Description 04/28/2023 Laboratory Laboratory [place] [address] [place] [address] 04/29/2023 Pharmacy [facility] [facility] [place] Hem[facility]Onc [address] [place] [address] 05/09/2023 Hospital Encounter Endoscopy Raheem Hagen MD [address] [place] [address] 05/09/2023 Surgery Endoscopy Raheem Hagen MD [address] [place] [address] COLONOSCOPY FLEXIBLE PROXIMAL DIAGNOSTIC 05/26/2023 Office Visit Dermatology Donita Cornejo PA-C [address] [place] [address] [place] [address] 08/23/2023 Imaging Radiology 08/30/2023 Office Visit Hematology Oncology Cory Infante MD [address] [place] [address] Scheduled Procedures Name Priority Associated Diagnoses Date/Ti [...] Tdap) 11/03/2023 11/02/2013 CKD PHOS USE SMARTSET 92393 12/02/202311/07, 10/12/2021, 02/07/2020 CKD HGB USE SMARTSET 27511 02/05/202402/04, 02/04/2023, 12/01/2022, Additional history exists Diabetes Screening 02/04/2026 02/04/2023, 0 12/01/2022, 08/30/2022, Additional history exists Pneumococcal Vaccine: Pediatrics (0 to 5 Years) and At-Risk Patients (6 to 64 Years) (3 - PPSV23 or PCV20) 10/01/2026 10/01/2021, 05/26/2020 Lipid Panel 12/02/2027 12/01/2022, 030 02/2022, 11/03/2020, Additional history exists COVID-19 Vaccine Completed 07/28/2022, , 05/11/2021, Additional history exists Zoster Vaccines Completed 01/06/2023, 10/28/2022 GARDASIL-HPV IMMUNIZATION SERIES Aged Out No longer eligible based on patient's age to complete this topic MENINGOCOCCAL (MENACTRA/MENVEO) Aged Out No longer eligible based on patient's age to complete this topic documented as of this encounter Medical Devices Implanted Type Area Kier Hand Device Identifier Shelf Expiration Date Model / Serial / Lot Implant Hi Prof Gel 750cc - [id number] Implanted:Qty: 1 on 07/02/2013 at OR [facility] [place] Left: Breast MENTOR DARVIN 04/01/2014 [id number] / [id number] / [id number] documented as of this encounter Advance Directives [...] Directives occurred with: Not Discussed Care Teams Automatic Lump Making Machine Tender Relationship Specialty Start Date End Date Susie White MD [address] [place] [address] PCP - General Internal Medicine 03/02/12 documented as of this encounter
--- OUTSIDE RECORDS SUMMARY | 2023-07-03 02:46 | External Medical Summary ---
Author Name Unknown Address Unknown Organization K09:[facility] [place] [address] Laboratory Report Ordering Provider Test Date Status RISA JENKINS 04/27/2023 12:18:59 Final Observation Date Value Abnormality Reference (Units ) Status SYNC LEUKOCYTES IN BLOOD BY AUTOMATED COUNT 04/27/2023 12:18:59 3.26 Below low normal 4.00-10.80 (K/uL) Final Segs 04/27/2023 12:18:59 43.5 40.0-75.0 (%) Final Lymphs % 04/27/2023 12:18:59 39.0 18.0-42.0 (%) Final Monos 04/27/2023 12:18:59 13.5 Above high normal 1.0-11.0 (%) Final Eosinophils 04/27/2023 12:18:59 2.5 0.0-6.0 (%) Final Basos 04/27/2023 12:18:59 1.5 0.0-2.0 (%) Final Absolute Segs 04/27/2023 12:18:59 1.42 Below low normal 1.80-7.70 (K/uL) Final Lymphs, absolute 04/27/2023 12:18:59 1.27 1.00-4.80 (K/ul) Final Monos, Abs 04/27/2023 12:18:59 0.44 0.00-1.10 (K/uL) Final Eos, Abs 04/27/2023 12:18:59 0.08 0.00-0.70 (K/uL) Final Basos, Abs 04/27/2023 12:18:59 0.05 0.00-0.20 (K/uL) Final Performing Location [facility] [place] [address]
--- OUTSIDE RECORDS SUMMARY | 2023-07-03 02:46 | External Medical Summary ---
Author Name Unknown Address Unknown Organization K01:[facility] [place] [facility] [address] [place] Laboratory Report Ordering Provider Test Date Status DON MOSER 04/27/2023 12:24:38 Final Observation Date Value Abnormality Reference (Units) Status Bacteria identified in Specimen by Culture 04/27/2023 12:24:38 No significant growth Final Test: Culture, Urine, Quanti tative
Specimen Source: Urine, Clean Catch
Specimen Type: Urine
Specimen Date: 04/27/2023 12:24 PM
Result Date: 04/28/2023 10:46 AM
Result Status: Final result
Resulting Lab: [facility]
[address]
[place] [address]

CULTURE

No significant growth

null Performing Location [facility] [place] [facility] [address] [facility] [address]
--- OUTSIDE RECORDS SUMMARY | 2023-07-03 02:46 | External Medical Summary | Summary of Care ---
Author Name Unknown Organization [facility] Address [address] [place] [address] Phone [phone] Care Team Providers Care Fish Farmer Name Role Phone Susie White MD Primary Care Provider [phone] Reason for Visit * Reason Comments Medication Management Encounter Details Date Type Department Care Team Description 05/04/2023 Pharmacy Pharmacy Hematology Oncology [facility] [address] [place], [place] [phone] [facility] Hem/Onc [address] [place], [place] [phone] Malignant neoplasm of overlapping sites of both breasts in female, estrogen receptor positive (HCC)* Allergies No known active allergiesdocumented as of this encounter (statuses as of 05/04/2023) Medications Medication Sig Dispensed Refills Start Date [...] as of this encounter (statuses as of 05/04/2023) Active Problems Problem Noted Date Stage 3a [...] as of this encounter (statuses as of 05/04/2023) Resolved Problems Problem Noted Date Resolved Date [...] Infante MD PI CRC Name: Molly Chowdhury [facility] Contact PI or VETERINARY MEDICAL OFFICER regarding any serious medical event, if new [...] Infante MD PI CRC Name: Molly Chowdhury [facility] Contact PI or VETERINARY MEDICAL OFFICER regarding any serious medical event, if new Rx given, ER visit, hospitalization, or billing question Diagnosis changed due to Research Module. Go to Snapshot for study details. 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 documented as of this encounter (statuses as of 05/04/2023) Immunizations Name Administration Dates Next Due COVID-19 [...] encounter Progress Notes * Radha Toscano, [facility] - 05/04/2023 1:58 PM EDT MEDICATION THERAPY MANAGEMENT RIBOCICLIB (KISQALI) TREATMENT PROGRESS NOTE Shante "Radha" Beryl [phone] Patient Phone Numbers Communication: Left message requesting return call to assess toleration to therapy and MyG message sent Current Treatment: Medication: Ribociclib (Kisqali) Indication: ER+/NC+/HER2- met breast cancer Dose: 400mg daily D1-21 every 28 days ( 01/11/20) Administration: +/- food Start Date: 11/28/2019 Primary Oncologist: Dr Yeimy Infante Supportive Care Meds: Letrozole Ondansetron Prochlorperazine Current cycle: 03/30 - 04/19 Next cycle: TBD Interval History: C1 stopped early due to diarrhea C2 stopped early due to grade 3 neutropenia Per previous discussion with Dr. Infante, lab monitoring extended to q3mo due to pt financial concern Admitted to [facility] 04/21/23-04/24/23 for small bowel obstruction Per OV 04/27/23, pt advised to DELAY next ribociclib start until 05/04/23 as long as she continues toimprove Changes to medication list since last visit? No Assessment and Plan: Follow up labs within parameters to initiate next cycle LM and MyG sent requesting call back to confirm status and cycle restart date MTM to follow up in one week if pt does not call back with cycle update Assessment of compliance: compliant Assessment of adverse effects attributed to drug therapy: N/A Dose adjustment needed based on lab or adverse drug reaction? No Follow up: 1 week Radha Toscano, PharmD, BCOP Clinical Pharmacist, [facility] Oral Chemotherapy [facility] 05/04/2023, 4:09 PM Pertinent labs: Latest Reference Range & Units 12/01/22 07:49 02/04/23 12:33 04/27/23 12:18 WBC 4.00 - 10.80 K/uL 2.83 (L) 3.84 (L) 3.26 (L) HGB 12.0 - 15.3 g/dL 13.6 13.4 13.9 HCT 36.0 - 45.2 % 42.0 41.3 39.7 MCV 81.5 - 97.5 fL 100.5 103.0 97.1 PLT 140 - 400 K/uL 251 191 193 Absolute Neutrophils 1.80 - 7.70 K/uL 1.18 (L) 1.89 1.42 (L) Serum creatinine: 1.2 mg/dL (H) 04/27/23 1218 Estimated creatinine clearance: 60.4 mL/min (A) Latest Reference Range & Units 12/01/22 07:49 02/04/23 12:33 04/27/23 12:18 Albumin 3.8 - 5.0 g/dL 4.5 4.6 4.6 AST 10 - 35 U/L 13 20 36 (H) ALT 10 - 35 U/L 19 26 34 Alkaline Phosphatase 35 - 130 U/L 51 53 58 Bilirubin, Total <=1.2 mg/dL 0.3 0.3 0.3 Suggested Labs: CBCd and LFTs baseline, q2w [...] monitoring - Medication Requires monitoring Pharmacist Intervention(s): Lab monitoring Magnitude of Intervention: Monitoring with no interventions (Level 0) documented in this encounter Plan of Treatment Upcoming Encounters Date Type Specialty Care Team Description 05/09/2023 Hospital Encounter Endoscopy Raheem Hagen MD [address] [place] [address] 05/09/2023 Surgery Endoscopy Raheem Hagen MD [address] [place] [address] COLONOSCOPY FLEXIBLE PROXIMAL DIAGNOSTIC 05/11/2023 Pharmacy Pharmacy [facility] [address] [facility] [address] 05/11/2023 Imaging Radiology 05/13/2023 Office Visit Gastroenterology Gaudencio Norris CRNP [address] [place] [address] 05/26/2023 Office Visit Dermatology Donita Cornejo PA-C [address] [place] [address] [place] [address] 08/23/2023 Imaging Radiology 08/30/2023 Office Visit Hematology Oncology Cory Infante MD [address] [place] [facility] [place] [address] 12/26/2023 Office Visit Urology Charles Galavn MD [address] [place] [address] [place] [address] Scheduled Procedures Name Priority Associated Diagnoses Date/Ti [...] Tdap) 11/03/2023 11/02/2013 CKD PHOS USE SMARTSET 61668 12/02/2023 04/2 01/2023, 10/12/2021, 02/07/2020 CKD HGB USE SMARTSET 91406 04/27/202404/27, 04/27/2023, 02/04/2023, Additional history exists Diabetes [...] this encounter Medical Devices Implanted Type Area Adult Live In Caregiver Device Identifier Shelf Expiration Date Model / Serial / Lot Implant Hi Prof Gel 750cc - [id number] Implanted:Qty: 1 on 07/02/2013 [place] [facility] [place] Breast MENTOR DARVIN 04/01/2014 [id number] / [id number] / [id number] documented as of this encounter Visit Diagnoses Diagnosis Malignant neoplasm of overlapping sites of both breasts in female, estrogen receptor positive- Primary Screen for colon cancer Special screening for [...] Directives occurred with: Not Discussed Care Teams Fish Farmer Relationship Specialty Start Date End Date Susie White MD [address] [facility], [place] [address] PCP - General Internal Medicine 03/02/12 documented as of this encounter
--- OUTSIDE RECORDS SUMMARY | 2023-07-03 02:46 | External Medical Summary | Summary of Care ---
Author Name Unknown Organization [facility] Address [address] [place] [address] Phone [phone] Care Team Providers Care Manager Cost Name Role Phone Susie White MD Primary Care Provider [phone] Reason for Visit * Auth/Cert Specialty Diagnoses / Procedures Referred By Contac t Referred To Contact Diagnoses Screen for colon cancer Screen for colon cancer [Z12.11] Procedures COLONOSCOPY, DIAGNOSTIC (RECTUM) COLONOSCOPY FLEXIBLE PROXIMAL DIAGNOSTIC Referral ID Status Reason Start Date Expiration Date Visits Re quested Visits Authorized [id number] Encounter Details Date Type Department Care Team Description 05/09/2023 Hospital Encounter ENDO [facility], Endoscopy Room [facility] [address] [place] [id number] Raheem Hagen MD [address] [place] [id number] Colonoscopy Allergies No known active allergiesdocumented as of this encounter (statuses as of 05/09/2023) Medications Medication Sig Dispensed Refills Start Date [...] as of this encounter (statuses as of 05/09/2023) Active Problems Problem Noted Date Stage 3a [...] as of this encounter (statuses as of 05/09/2023) Resolved Problems Problem Noted Date Resolved Date [...] [facility] Contact PI or RENTAL CLERK TOOL AND EQUIPMENT regarding any serious medical event, if new [...] [facility] Contact PI or RENTAL CLERK TOOL AND EQUIPMENT regarding any serious medical event, if new Rx given, ER visit, hospitalization, or billing question Diagnosis changed due to Research Module. Go to Snapshot for study details. 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 documented as of this encounter (statuses as of 05/09/2023) Immunizations Name Administration Dates Next Due COVID-19 [...] Sign Reading Time Taken Comments Blood Pressure 110/60 05/09/2023 9:35 AM EDT Pulse 72 05/09/2023 9:35 AM EDT Temperature 36.3 C (97.4 F) 05/09/2023 8:06 AM ED T Respiratory Rate 18 05/09/2023 9:35 AM EDT Oxygen Saturation 98% 05/09/2023 9:35 AM EDT Inhaled Oxygen Concentration - - Weight 81.6 kg (180 lb) 05/09/2023 8:06 AM EDT Height 167.6 cm (5' 6") 05/09/2023 8:06 AM EDT Body Mass Index 29.05 05/09/2023 8:06 AM EDT documented in this encounter H&P Notes * Raheem Hagen MD - 05/09/2023 8:43 AM EDT Procedure(s): Colonoscopy; with Indication(s) of average risk screening Endoscopy Pre-Procedure Assessment: Prior to the procedure, the patient was identified. The patient's history, medications and allergies were reviewed as per the Anesthesia Assessment. The patient is competent. The risks and benefits of the proposed procedure and the planned sedation were discussed with the patient. All questions were answered and informed consent for the procedure was obtained. Pulse 68 | Temp 36.3 C (97.4 F) (Tympanic) | Resp 16 | Ht 1.676 m (5' 6") | Wt 81.6 kg (180 lb)| LMP 01/06/2013 | SpO2 99% | BMI 29.05 kg/m | BSA 1.95 m Physical Exam: Mental Status Examination: alert and oriented. Airway Examination: normal oropharyngeal airway and neck mobility. Respiratory Examination: clear to auscultation. CV Examination: normal. ASA Grade: II - A patient with mild systemic disease. Patient was explained in detail regarding risks, benefits, limitations and alternatives of the above endoscopic procedure. Risks of intravenous sedation used for procedure were also explained. Risks include, but not limited to perforation, bleeding, infection, respiratory distress, cardiac arrest and . Patient is also aware about the possibility of missed lesions. Patient's questions were answered. The patient verbalized understanding of the information and agreed to undergo the procedure. After reviewing the risks and benefits, the patient was deemed in satisfactory condition to undergothe procedure. The anesthesia plan is to use general anesthesia. documented in this encounter Procedure Notes * Susie White MD - 05/09/2023 8:45 AM EDTAssociated Order(s): COLONOSCOPY [facility] Patient Name: Shante Cordoba Procedure Date: 05/09/2023 8:45 AM Date of : 1970 Admit Type: Outpatient Note Status: Finalized Date of : 1970 Admit Type: Outpatient Age: 52 Room: [facility] 2 Gender: Female Note Status: Finalized Procedure: Colonoscopy Indications: Screening for colorectal malignant neoplasm Providers: Raheem Hagen MD (Doctor), Quentin Eaton RN, Kelvin Miguel CRNA (Anesthesia Staff) Referring MD: Susie White MD (Referring MD) Medicines: See the Anesthesia note for documentation of the administered medications Complications: No immediate complications. Procedure: Pre-Anesthesia Assessment: - - Patient identification and proposed procedure were verified prior to the procedure by the physician and the nurse. The procedure was verified in the procedure area. - Prior to the procedure, a History and Physical was performed, and patient medications, allergies and sensitivities were reviewed. The patient's tolerance of previous anesthesia was reviewed. - The risks and benefits of the procedure and the sedation options and risks were discussed with the patient. All questions were answered and informed consent was obtained. After I obtained informed consent, the scope was passed under direct vision. All instruments were visually inspected immediately before and after removal from the patient to ensure they are fully intact. Throughout the procedure, the patient's blood pressure, pulse, and oxygen saturations were monitored continuously. The [id number] Colonoscope ([id number]) was introduced through the anus and advanced to the cecum, identified by appendiceal orifice and ileocecal valve. The colonoscopy was performed without difficulty. The patient tolerated the procedure well. The quality of the bowel preparation was good. Findings & Specimens: The perianal and digital rectal examinations were normal. A 5 mm polyp was found at 20 cm proximal to the anus. The polyp was sessile. The polyp was removed with a cold snare. Resection and retrieval were complete. Verification of patient identification for the specimen was done by the physician and nurse using the patient's name and medical record number. Estimated blood loss was minimal. The exam was otherwise without abnormality on direct and retroflexion views. Impression: - One 5 mm polyp at 20 cm proximal to the anus, removed with a cold snare. Resected and retrieved. - The examination was otherwise normal on direct and retroflexion views. Recommendation: - Await pathology results. - Discharge patient to home. Raheem Hagen MD 05/09/2023 9:20:18 AM This report has been signed electronically. documented in this encounter Nursing Notes * Yenny Parry RN - 05/09/2023 9:37 AM EDT Patient is alert, pain free, passing flatus and tolerating po fluids prior to discharge. Patient has been visited by Dr. Hagen. Patient has received and demonstrates understanding of discharge instructions. Patient is transported via w/c to private auto accompanied by endo staff. * Yenny Parry RN - 05/09/2023 9:34 AM EDT D/c instructions given to pt, verbalized understanding. * Yenny Parry RN - 05/09/2023 9:25 AM EDT Pt sitting up tolerating PO fluids. Dr Hagen in with pt discussing results of procedure. * Armando Eaton RN - 05/09/2023 9:18 AM EDT Specimen(s) and location(s) verified with physician post procedure 9:18 AM Armando Eaton RN Mid abdominal pressure given per Dr. Hagen to assist with scope advancement. Pt tolerated well See anesthesia record for medication administered during procedure. Armando Eaton RN Pre cleaning of scope at the bedside started by biochemistry technologist. * Yenny Parry RN - 05/09/2023 9:18 AM EDT Received pt, awake, VSS, CM shows NSR. Report given by Chelsie RUIZ. * Amanda Goel RN - 05/09/2023 8:02 AM EDT The following pt discharge instructions [...] Date Type Specialty Care Team Description 05/11/2023 Pharmacy [facility] Hem[facility]Onc [address] [place] [address] 05/11/2023 Imaging Radiology 05/13/2023 Office Visit Gastroenterology Gaudencio Norris CRNP [address] [place] [address] 05/26/2023 Office Visit Dermatology Donita Cornejo PA-C [address] [place] [address] [place] [address] 08/23/2023 Imaging Radiology 08/30/2023 Office Visit Hematology Oncology Cory Infante MD [address] [place] [address] 12/26/2023 Office Visit Urology Charles Galvan MD [address] [place] [address] Pending Results Name Type Priority Associated Diagnoses Date /Time SURGICAL PATHOLOGY Pathology Routine Screen for colon cancer 05/09/2023 9:18 AM EDT Scheduled Orders Name Type Priority Associated Diagnoses Orde r Schedule SURGICAL PATHOLOGY Pathology Routine Screen for colon cancer Release Upon Ordering for 1 Occurrences starting 05/09/2023, 1 completed Scheduled Procedures Name Priority Associated Diagnoses Date/Ti me COLONOSCOPY FLEXIBLE PROXIMAL DIAGNOSTIC Screen for colon cancer 05/09/2023 8:58 AM EDT Health Maintenance Due Date Last [...] Tdap) 11/03/2023 11/02/2013 CKD PHOS USE SMARTSET 72611 12/02/2023 0401/2023, 10/12/2021, 02/07/2020 CKD HGB USE SMARTSET 89706 04/27/202404/27, 04/27/2023, 02/04/2023, Additional history exists Diabetes Screening 04/27/2026 04/27/2023, 0 02/04/2023, 12/01/2022, Additional history exists Pneumococcal Vaccine: Pediatrics (0 to 5 Years) and At-Risk Patients (6 to 64 Years) (3 - PPSV23 or PCV20) 10/01/2026 10/01/2021, 05/26/2020 Lipid Panel 12/02/2027 12/01/2022, 0302/2022, 11/03/2020, Additional history exists Colonoscopy 05/09/2033 05/09/2023 Colorectal Cancer Screening 05/09/2033 COVID-19 Vaccine Completed 07/28/2022, , 05/11/2021, Additional history exists Zoster Vaccines Completed 01/06/2023, 10/28/2022 GARDASIL-HPV IMMUNIZATION SERIES Aged Out No longer eligible based on patient's age to complete this topic MENINGOCOCCAL (MENACTRA/MENVEO) Aged Out No longer eligible based on patient's age to complete this topic documented as of this encounter Medical Devices Implanted Type Area Study Director Device Identifier Shelf Expiration Date Model / Serial / Lot Implant Hi Prof Gel 750cc - [id number] Implanted:Qty: 1 on 07/02/2013 at OR [facility] [place] Left: Breast MENTOR DARVIN 04/01/2014 [id number] / [id number] / [id number] documented as of this encounter Procedures Procedure Name Priority Date/Time Associated Diagnosis Comments COLONOSCOPY 05/09/2023 8:45 AM EDT documented in this encounter Results * COLONOSCOPY (05/09/2023 8:45 AM EDT) 05/09/2023 8:45 AM EDT Procedure Note Susie White MD - 05/09/2023 8:45 AM EDT [facility] Patient Name: Shante Cordoba Procedure Date: 05/09/2023 8:45 AM Date of : 1970 Admit Type: Outpatient Note Status:Finalized Date of : 1970 Admit Type: Outpatient Age: 52 Room: Endo 2 Gender: Female Note Status: Finalized Procedure: Colonoscopy Indications: Screening for colorectal malignant neoplasm Providers: Raheem Hagen MD (Doctor), Quentin Eaton RN, Kelvin Miguel CRNA (Anesthesia Staff) Referring MD: Susie White MD (Referring MD) Medicines: See the Anesthesia note for documentation of theadministered medications Complications: No immediate complications. Procedure: Pre-Anesthesia Assessment: - - Patient identification and proposed procedurewere verified prior to the procedure by the physician and the nurse. Theprocedure was verified in the procedure area. - Prior to the procedure, a History and Physicalwas performed, and patient medications, allergies and sensitivities werereviewed. The patient's tolerance of previous anesthesia was reviewed. - The risks and benefits of the procedure and thesedation options and risks were discussed with the patient. All questions wereanswered and informed consent was obtained. After I obtained informed consent, the scope waspassed under direct vision. All instruments were visually inspected immediatelybefore and after removal from the patient to ensure they are fully intact. Throughout the procedure, the patient's bloodpressure, pulse, and oxygen saturations were monitored continuously. The [id number] ([id number]) was introduced through the anus and advanced to the cecum,identified by appendiceal orifice and ileocecal valve. The colonoscopy was performedwithout difficulty. The patient tolerated the procedure well. The quality of thebowel preparation was good. Findings & Specimens: The perianal and digital rectal examinations were normal. A 5 mm polyp was found at 20 cm proximal to the anus. The polyp wassessile. The polyp was removed with a cold snare. Resection and retrieval were complete. Verification ofpatient identification for the specimen was done by the physician and nurse using the patient's nameand medical record number. Estimated blood loss was minimal. The exam was otherwise without abnormality on direct and retroflexionviews. Impression: - One 5 mm polyp at 20 cm proximal to the anus,removed with a cold snare. Resected and retrieved. - The examination was otherwise normal on directand retroflexion views. Recommendation: - Await pathology results. - Discharge patient to home. Raheem Hagen MD 05/09/2023 9:20:18 AM This report has been signed electronically. Susie White MD [facility] documented in this encounter Visit Diagnoses Diagnosis Screen for colon cancer Special screening for malignant neoplasms, colon documented in this encounter Administered Medications Inactive Administered Medications - up to 3 most recent administrations Medication Order MAR Action Action Date Dose Rate Site Acetaminophen (Tylenol) tab 650 mg 650 mg, Oral, PRN Pain, Mild, Starting on Tue05/09/23 at 0928, Until Tue05/09/23 at 1345, For 1 dose, Maximum of 4 grams (4000 mg) per day., Post-op isolyte-S pH 7.4 infusion Intravenous, at 100 mL/hr, Plasma-LYTE 148, isolyte-S, and isolyte-S pH 7.4 are considered equivalent - including for MAR barcode scanning., CONTINUOUS, Starting on Tue05/09/23 at 0830, Until Tue05/09/23 at 1345, Pre-Op Continue from Pre-Op 05/09/2023 8:58 AM EDT 100 mL/hr New Bag 05/09/2023 8:14 AM EDT 100 mL/hr documented in this encounter Active and Recently Administered Medications Times are shown in EDT. Continuous Medication Order 05/07/2023 05/08/2023 05/09/2023 isolyte-S pH 7.4 infusion Intravenous, at 100 mL/hr, Plasma-LYTE 148, isolyte-S, and isolyte-S pH 7.4 are considered equivalent - including for MAR barcode scanning., CONTINUOUS, Starting on Tue05/09/23 at 0830, Until Tue05/09/23 at 1345, Pre-Op 0814 (New Bag - Prov ider: Amanda Goel RN)0858 (Continue from Pre-Op - Provider: Kelvin Miguel CRNA)0916 (Stopped - Provider: Kelvin Miguel CRNA) PRN Medication Order 05/07/2023 05/08/2023 05/09/2023 Acetaminophen (Tylenol) tab 650 mg 650 mg, Oral, PRN Pain, Mild, Starting on Tue05/09/23 at 0928, Until Tue05/09/23 at 1345, For 1 dose, Maximum of 4 grams (4000 mg) per day., Post-op documented in this encounter Advance Directives Latest Code Status on File Code Status Date Activated Date Inactivated Comments Full Code 01/14/2014 8:52 AM 01/14/2014 4:20 PM This or daiys reflects the patients wishes and were consensually [...] Directives occurred with: Not Discussed Care Teams Manager Cost Relationship Specialty Start Date End Date Susie hWite MD [address] [place] [address] PCP - General Internal Medicine 03/02/12 documented as of this encounter
--- OUTSIDE RECORDS SUMMARY | 2023-07-03 02:46 | External Medical Summary | Summary of Care ---
Author Name Unknown Organization [facility] Address [address] [facility] [place] [address] Phone [phone] Care Team Providers Care Operations Consultant Name Role Phone Susie White MD Primary Care Provider [phone] Reason for Visit * Reason Onset Date Comments Information 04/26/2023 Encounter Details Date Type Department Care Team Description 04/26/2023 Telephone Hematology/Oncology Treatment, [place] [address] [place] [address] Cory Infante MD [address] [facility] [place] [address] Information Allergies No known active allergiesdocumented as [...] Infante MD PI CRC Name: Molly Chowdhury [facility] Contact PI or CLAIMS SERVICE ADJUSTOR regarding any serious medical event, if new [...] Infante MD PI CRC Name: Molly Chowdhury [facility] Contact PI or CLAIMS SERVICE ADJUSTOR regarding any serious medical event, if new [...] 04/26/2023 12:21 PM EDT Patient admitted at [facility] 04/21/23- 04/24/23 for SBO, felt to [...] Visit Internal Medicine Susie White MD [address] [place] [address] 04/28/2023 Laboratory Laboratory [facility] [address] [place] [address] 04/29/2023 Pharmacy Pharmacy [facility] Hem/Onc [address] [place] [address] 05/09/2023 Hospital Encounter Endoscopy Raheem Hagen MD [address] [place] [address] 05/09/2023 Surgery Endoscopy Raheem Hagen MD [address] [place] [address] COLONOSCOPY FLEXIBLE PROXIMAL DIAGNOSTIC 05/26/2023 Office Visit Dermatology Donita oCrnejo PA-C [address] [place] [address] [place] [address] 08/23/2023 Imaging Radiology 08/30/2023 Office Visit Hematology Oncology Cory Infante MD [address] [place] [address] Scheduled Procedures Name Priority Associated Diagnoses Date/Ti [...] 10/01/2021, Additional history exists GFR 08/06/2023 02/04/2023, 04/2 01/2023, 08/30/2022, Additional history exists Albumin/Creatinine Ratio 10/29/2023 10/28/2022, 03/0 02/2022 Depression Screening 10/29/2023 10/28/2022 DTaP,Tdap,and Td Vaccines (2 - Td or Tdap) 11/03/2023 11/02/2013 CKD PHOS USE SMARTSET 98297 12/02/2023 04/2 01/2023, 10/12/2021, 02/07/2020 CKD HGB USE SMARTSET 52713 02/05/202402/04, 02/04/2023, 12/01/2022, Additional history exists Diabetes [...] this encounter Medical Devices Implanted Type Area Tax Commissioner Device Identifier Shelf Expiration Date Model / Serial / Lot Implant Hi Prof Gel 750cc - [id number] Implanted:Qty: 1 on 07/02/2013 at OR [facility] [place] Left: Breast MENTOR DARVIN 04/01/2014 [id number] / [id number] / [id number] documented as of this encounter Advance Directives [...] Directives occurred with: Not Discussed Care Teams Operations Consultant Relationship Specialty Start Date End Date Susie White MD [address] [place] [address] PCP - General Internal Medicine 03/02/12 documented as of this encounter
--- OUTSIDE RECORDS SUMMARY | 2023-07-03 02:46 | External Medical Summary ---
Author Name Unknown Address Unknown Organization K09[facility] [place] [address] Laboratory Report Ordering Provider Test Date Status RISA JENKINS 04/27/2023 12:18:59 Final Observation Date Value Abnormality Reference (Units ) Status WBC, Total 04/27/2023 12:18:59 3.26 Below low normal 4. 00-10.80 (K/uL) Final RBC 04/27/2023 12:18:59 4.09 3.85-5.15 (M/uL) Final Hemoglobin 04/27/2023 12:18:59 13.9 12.0-15.3 (g/dL) Final HCT 04/27/2023 12:18:59 39.7 36.0-45.2 (%) Final MCV 04/27/2023 12:18:59 97.1 81.5-97.5 (fL) Final MCH 04/27/2023 12:18:59 34.0 27.0-34.0 (pg) Final MCHC 04/27/2023 12:18:59 35.0 32.0-36.0 (g/dL) Final RDW 04/27/2023 12:18:59 12.8 11.5-15.5 (%) Final Platelets 04/27/2023 12:18:59 193 140-400 (K /uL) Final MPV 04/27/2023 12:18:59 9.6 6.6-11.1 ( fL) Final Performing Location [facility] [place] [place] [address]
--- OUTSIDE RECORDS SUMMARY | 2023-07-03 02:46 | External Medical Summary ---
Author Name Unknown Address Unknown Organization [facility] [address] [place] [address] Laboratory Report Ordering Provider Test Date Status DON MOSER 04/27/2023 12:24:38 Final Observation Date Value Abnormality Reference (Units ) Status Color of Urine by Auto 04/27/2023 12:24:38 Yellow Light Yellow, Yellow, Dark Yellow Final Clarity, Urine 04/27/2023 12:24:38 Clear Clear Final Glucose [Mass/volume] in Urine by Automated test strip 04/27/2023 12:24:38 Negative Negative (mg/dL) Final Bilirubin.total [Presence] in Urine by Automated test strip 04/27/2023 12:24:38 Negative Negative Final Ketones [Mass/volume] in Urine by Automated test strip 04/27/2023 12:24:38 Negative Negative (mg/dL) Final Specific gravity, Urine 04/27/2023 12:24:38 1.015 1.003-1.030 Final Hemoglobin [Presence] in Urine by Automated test strip 04/27/2023 12:24:38 Negative Negative Final pH, Urine 04/27/2023 12:24:38 7.5 5.0-7.5 (Units) Final Protein [Mass/volume] in Urine by Automated test strip 04/27/2023 12:24:38 Negative Negative (mg/dL) Final Urobilinogen [Mass/volume] in Urine by Automated test strip 04/27/2023 12:24:38 0.2 0.2, 1.0 (mg/dL) Final Nitrite [Presence] in Urine by Automated test strip 04/27/2023 12:24:38 Negative Negative Final Leukocyte esterase [Presence] in Urine by Automated test strip 04/27/2023 12:24:38 Negative Negative Final RBC, Urine 04/27/2023 12:24:38 0-2 0-2 (/HPF) Final WBC, Urine 04/27/2023 12:24:38 0-2 0-2 (/HPF) Final Bacteria [#/area] in Urine sediment by Microscopy high power field 04/27/2023 12:24:38 0-25 0-25 (/HPF) Final Performing Location [facility] [address] [place] [address]
--- OUTSIDE RECORDS SUMMARY | 2023-07-03 02:46 | External Medical Summary | Summary of Care ---
Author Name Unknown Organization [facility] Address [address] [place] [address] Phone [phone] Care Team Providers Care Under Trimmer Name Role Phone Susie White MD Primary Care Provider [phone] Reason for Visit * Reason Comments Outpatient Testing Encounter Details Date Type Department Care Team Description 04/27/2023 Laboratory Laboratory [facility] [address] [place] [address] [facility] [address] [place] [id number] Malignant neoplasm of overlapping sites of both breasts in female, estrogen receptor positive (HCC); Bladder wall thickening Allergies No known active allergiesdocumented as of [...] PI CRC Name: Molly Chowdhury [facility] Contact PI or CUSHION INSTALLER regarding any serious medical event, if new [...] PI CRC Name: Molly Chowdhury [facility] Contact PI or CUSHION INSTALLER regarding any serious medical event, if new [...] on file documented as of this encounter Plan of Treatment Upcoming Encounters Date Type Specialty Care Team Description 04/29/2023 Pharmacy Pharmacy [facility] Hem/Onc [address] [place] [address] 05/09/2023 Hospital Encounter Endoscopy Raheem Hagen MD [address] [place] [address] 05/09/2023 Surgery Endoscopy Raheem Hagen MD [address] [place] [address] COLONOSCOPY FLEXIBLE PROXIMAL DIAGNOSTIC 05/26/2023 Office Visit Dermatology Donita Cornejo PA-C [address] [place] [address] [place] [id number] 08/23/2023 Imaging Radiology 08/30/2023 Office Visit Hematology Oncology Cory Infante MD [address] [place], [place] [address] [address] Pending Results Name Type Priority Associated Diagnoses Date /Time COMPREHENSIVE METABOLIC PANEL Lab STAT Malignant neoplasm of overlapping sites of both breasts in female, estrogen receptor positive (HCC) 04/27/2023 12:18 PM EDT URINALYSIS WITH MICROSCOPIC EXAM Lab Routine Bladder wall thickening 04/27/2023 12:24 PM EDT CULTURE, URINE, QUANTITATIVE Lab Routine Bladder wall thickening 04/27/2023 12:24 PM EDT Scheduled Procedures Name Priority Associated Diagnoses Date/Ti [...] 10/01/2021, Additional history exists GFR 08/06/2023 02/04/2023, 04/01/2023, 08/30/2022, Additional history exists Albumin/Creatinine Ratio 10/29/2023 10/28/2022, 0302/2022 Depression Screening 10/29/2023 10/28/2022 DTaP,Tdap,and Td Vaccines (2 - Td or Tdap) 11/03/2023 11/02/2013 CKD PHOS USE SMARTSET 75383 12/02/2023 04/2 01/2023, 10/12/2021, 02/07/2020 CKD HGB USE SMARTSET 72875 04/27/202404/27, 04/27/2023, 02/04/2023, Additional history exists Diabetes Screening 02/04/2026 02/04/2023, [...] this encounter Medical Devices Implanted Type Area Ux Lead Device Identifier Shelf Expiration Date Model / Serial / Lot Implant Hi Prof Gel 750cc - [id number] Implanted:Qty: 1 on 07/02/2013 at [facility] Left: Breast MENTOR DARVIN 04/01/2014 [id number] / [id number] / [id number] documented as of this encounter Procedures Procedure Name Priority Date/Time Associated Diagnosis Comments DIFFERENTIAL, AUTOMATED STAT 04/27/2023 12:18 PM EDT Malignant neoplasm of overlapping sites of both breasts in female, estrogen receptor positive (HCC) CBC WITH WBC DIFFERENTIAL STAT 04/27/2023 12:18 PM EDT Malignant neoplasm of overlapping sites of both breasts in female, estrogen receptor positive (HCC) CBC STAT 04/27/2023 12:18 PM EDT Malignant neoplasm of overlapping sites of both breasts in female, estrogen receptor positive (HCC) DIFFERENTIAL, TECHNOLOGIST REVIEW Routine 04/27/2023 12:18 PM EDT Malignant neoplasm of overlapping sites of both breasts in female, estrogen receptor positive (HCC) documented in this encounter Results * (ABNORMAL) DIFFERENTIAL, TECHNOLOGIST REVIEW (04/27/2023 12:18 PM EDT) nRBCs 04/27/2023 12:32 PM EDT [facility] 56-02 Reactive Lymphocytes Present(A ) None Seen 04/27/2023 12:32 PM EDT [facility] 56-02 Blood Venous blood specimen / Unknown Venipuncture / Unknown 04/27/2023 12:18 PM EDT 04/27/2023 12:18 PM EDT Cory Infante MD LAB BLOOD ORDERABLES [facility] [address] [place] [phone] * (ABNORMAL) DIFFERENTIAL, AUTOMATED (04/27/2023 12:18 PM EDT) WBC 3.26(L) 4.00 - 10.80 K/uL 04/27/2023 12:32 PM EDT [facility] Neutrophils % 43.5 40.0 - 75.0 % 04/27/2023 12:32 PM EDT [facility] Lymphocytes % 39.0 18.0 - 42.0 % 04/27/2023 12:32 PM EDT [facility] Monocytes % 13.5(H) 1.0 - 11.0 % 04/27/2023 12:32 PM EDT [facility] Eosinophils % 2.5 0.0 - 6.0 % 04/27/2023 12:32 PM EDT [facility] Basophils % 1.5 0.0 - 2.0 % 04/27/2023 12:32 PM EDT [facility] Absolute Neutrophils 1.42(L) 1.80 - 7.70 K/uL 04/27/2023 12:32 PM EDT [facility] Absolute Lymphocytes 1.27 1.00 - 4.80 K/ul 04/27/2023 12:32 PM EDT [facility] Absolute Monocytes 0.44 0.00 - 1.10 K/uL 04/27/2023 12:32 PM EDT [facility] Absolute Eosinophils 0.08 0.00 - 0.70 K/uL 04/27/2023 12:32 PM EDT [facility] 56 Absolute Basophils 0.05 0.00 - 0.20 K/uL 04/27/2023 12:32 PM EDT [facility] Blood Venous blood specimen / Unknown Venipuncture / Unknown 04/27/2023 12:18 PM EDT 04/27/2023 12:18 PM EDT Cory Infante MD LAB BLOOD ORDERABLES [facility] 56 [address] [place] [address] * (ABNORMAL) CBC (04/27/2023 12:18 PM EDT) [facility] [address] WBC 3.26(L) 4.00 - 10.80 K/uL 04/27/2023 12:32 PM EDT [place] [address] RBC 4.09 3.85 - 5.15 M/uL 04/27/2023 12:32 PM EDT [place] [address] HGB 13.9 12.0 - 15.3 g/dL 04/27/2023 12:32 [address]T [address] HCT 39.7 36.0 - 45.2 % 04/27/2023 12:[address] MCV 97.1 81.5 - 97.5 fL 04/27/2023 12:32 [address] EDT [address] MCH 34.0 27.0 - 34.0 pg 04/27/2023 12:32 PM EDT [place] [address] MCHC 35.0 32.0 - 36.0 g/dL 04/27/2023 12:32 PM EDT [place] [address] RDW 12.8 11.5 - 15.5 % 04/27/2023 12:[address] PLT 193 140 - 400 K/uL 04/27/2023 12:32 PM EDT [address] MPV 9.6 6.6 - 11.1 fL 04/27/2023 12:32 PM EDT [facility] 56 Blood Venous blood specimen / Unknown Venipuncture / Unknown 04/27/2023 12:18 PM EDT 04/27/2023 12:18 PM EDT Cory Infante MD LAB BLOOD ORDERABLES [facility] 56-02 [address] [place] [address] documented in this encounter Visit Diagnoses Diagnosis Malignant neoplasm of overlapping sites of both breasts in female, estrogen receptor positive (HCC) Bladder wall thickening Other specified disorders of bladder Screen for colon cancer Special screening for [...] Directives occurred with: Not Discussed Care Teams Under Trimmer Relationship Specialty Start Date End Date [facility] [address] P[facility] - General Internal Medicine 03/02/12 documented as of this encounter
--- OUTSIDE RECORDS SUMMARY | 2023-07-03 02:46 | External Medical Summary ---
Author Name Unknown Address Unknown Organization K09:[facility] [place] [address] Laboratory Report Ordering Provider Test Date Status RISA JENKINS 04/27/2023 12:18:59 Final Observation Date Value Abnormality Reference (Units ) Status Nucleated erythrocytes/100 leukocytes [Ratio] in Blood by Automated count 04/27/2023 12:18:59 Final Variant lymphocytes [Presence] in Blood by Light microscopy 04/27/2023 12:18:59 Present Abnormal None Seen Final Performing Location [facility] [place] [address]
--- OUTSIDE RECORDS SUMMARY | 2023-07-03 02:46 | External Medical Summary | Summary of Care ---
Author Name Unknown Organization [facility] Address [address] [place] [facility] [place] [place] [address] Phone [phone] Care Team Providers Care Glass Blower Name Role Phone Susie White MD Primary Care Provider [phone] Reason for Visit * Reason Comments Follow Up Hospital discharge Encounter Details Date Type Department Care Team Description 04/27/2023 Office Visit Hematology/Oncology [place] Jaquez [place] [facility] [place] [address] Cory Infante MD 200 [facility] [place] [address] Malignant neoplasm of overlapping sites of both [...] Infante MD PI CRC Name: Molly Chowdhury [facility] Contact PI or CREDIT CONTROL ASSISTANT regarding any serious medical event, if new [...] Infante MD PI CRC Name: Molly Chowdhury [facility] Contact PI or CREDIT CONTROL ASSISTANT regarding any serious medical event, if new [...] 100% malignamt cells, weak to intermediate positive, UT negative, Her2/Maximilian 2+. FISH -ve. CURRENT TREATMENT: [...] in January, (no hysterectomy) -tamoxifen between January [id number] 2020. Diagnosis of right breast: She says [...] ER strongly positive in 100% malignant cells, UT moderatelypositive in 50% malignant cells, Gbs2Zsu negative. - Core needle biopsy of 4 o'clock lesion --> Invasive lobular carcinoma, grade 2, measuring 0.6 cm on the slide, ER strongly positive in 100% malignant cells, UT moderately positive in 50% malignant cells. Tam1Gvd negative. She is otherwise doing well, has [...] She was seen by Dr. Farmer at [facility], [place], underwent bronchoscopic evaluation (01/28/2016, biopsy from the [...] 100% of cells, intermediate to weak positive, UT negative, Her2/Maximilian equivocal (2+),FISH negative. -gallbladder showed [...] pain, nausea, vomiting, she was admitted at [facility], I reviewed hospital records. CT scan [...] -WBC 2400, H&H of 12.2/35.0, Platelet count [id number]. -ANC 1100. -Calcium 8.5, phosphorus 3.4, magnesium [...] performed by Delio Chan MD at OR [facility] BREAST RECONSTRUCTION 04/21/12 I 04/21/2012 mmediate reconstruction of bilateral breasts with adjustable implant to be utilized for expansion and acellular dermal matrix 04/21/12 Dr. Chan at [facility] BRONCHOSCOPY, DIAGNOSTIC N/A 01/28/2016 BRONCHOSCOPY DIAGNOSTIC WITH OR WITHOUT WASHING performed by Bill Farmer MD at ENDOSCOPY [facility] DILATION AND CURETTAGE (D&C) 06/2008 D&C at [place], [place] EGD, FLEXIBLE, DIAGNOSTIC 11/23/2018 gastritis/ESOPHAGOGASTRODUODENOSCOPY (EGD), FLEXIBLE, TRANSORAL, DIAGNOSTIC performed by Lavelle Ruiz MD at ENDOSCOPY [facility] EGD, FLEXIBLE,W/ENDOSCOPIC US 10/03/2019 lymph node, peripancreatic bx - metastatic cancer, IPMN / INPT [facility] ERCP 10/03/2019 choledocholithiasis / INPT [facility] EXPLORATION OF ABDOMEN 01/14/2014 EXPLORATORY LAPAROTOMY performed by Danae Ceron MD at [facility] LAPAROSCOPY; CHOLECYSTECTOMY 09/2019 LAPAROSCOPY;RMV ADNEXAL STRUCT 01/14/2014 LAPAROSCOPIC OOPHORECTOMY AND OR SALPINGECTOMY performed by Danae Ceron MD at [facility] MASTECTOMY, MODIFIED RADICAL 04/21/12 04/21/2012 Right mastectomy with right axillary lymph node dissectiona nd left prophylactic mastectomy 04/21/12 Dr. Carbajal at [facility] MASTECTOMY,RADICAL 2011 OTHER (INFORMATION) 11/1986 Left ankle surgery, [place], [place] OVARY/TUBAL CANCR RESEC W/SALPINGO-OOPHEREC 01/14/2014 REMOV GLO ROBI DEQUAN ACC DEV,WITH 02/18/14 Removal of A port left chest 02/18/14 Dr. Carbajal in the clinic REMOVAL OF OVARY/OVIDUCT(S) 2013 preventive for breast cancer , uterus and cervix intact REPLACE TISSUE BALLET DANCER 07/02/2013 REPLACEMENT EXPANDERS WITH PERMANENT PROSTHESIS performed by Delio Chan MD at [facility] SKIN TISSUE REARRANGEMENT 07/02/2013 SKIN TISSUE REARRANGEMENT performed by Delio Chan MD at [facility] SKIN TISSUE REARRANGEMENT, ADD-ON 07/02/2013 SKIN TISSUE REARRANGEMENT, ADD-ON performed by Delio Chan MD at [facility] TOTAL ABD HYSTERECTOMY W/WO REMOVAL OF TUBE(S) [...] -WBC 3800, H&H of 13.4/41.3, Platelet count [id number]. ASSESSMENT AND PLAN: 52-year-old female, a case [...] late September 2019, she was admitted at [facility] for symptomatic cholecystitis, underwent laparoscopic cholecystectomy, she also had some periportal lymphadenopathy, biopsy from that lymph node showed metastatic breast cancer, ER 100% positive in malignant cells (weak to intermediate), UT negative, Her2/Maximilian 2+. FISH negative. PET-CT scan, [...] was unremarkable. Recently she was admitted at [facility] for high-grade small- bowel obstruction, most [...] Date Type Specialty Care Team Description 04/27/2023 Imaging Radiology Arrived 04/29/2023 Pharmacy Pharmacy [facility] [address] [facility] [place] [address] 05/09/2023 Hospital Encounter Endoscopy Raheem Hagen MD [address] [facility] [place] [address] 05/09/2023 Surgery Endoscopy Raheem Hagen MD [address] [place] [address] COLONOSCOPY FLEXIBLE PROXIMAL DIAGNOSTIC 05/26/2023 Office Visit Dermatology Donita Cornejo PA-C [address] [place] [address] [place] [address] 08/23/2023 Imaging Radiology 08/30/2023 Office Visit Hematology Oncology Cory Infante MD [address] [place] [address] Scheduled Procedures Name Priority Associated Diagnoses Date/Ti [...] Tdap) 11/03/2023 11/02/2013 CKD PHOS USE SMARTSET 56145 12/02/20232 01/2023, 10/12/2021, 02/07/2020 CKD HGB USE SMARTSET 99313 02/05/202402/04, 02/04/2023, 12/01/2022, Additional history exists Diabetes [...] this encounter Medical Devices Implanted Type Area Manager Intel Device Identifier Shelf Expiration Date Model / Serial / Lot Implant Hi Prof Gel 750cc - [id number] Implanted:Qty: 1 on 07/02/2013 at [facility] Left: Breast [place] 04/01/2014 [id number] / [id number] / [id number] documented as of this encounter Visit Diagnoses [...] Directives occurred with: Not Discussed Care Teams Glass Blower Relationship Specialty Start Date End Date Susie White MD 200 [place] [address] PCP - General Internal Medicine 03/02/12 documented as of this encounter
--- OUTSIDE RECORDS SUMMARY | 2023-07-03 02:47 | External Medical Summary | Summary of Care ---
Author Name Unknown Organization [facility] Address [address] [place] [facility] [place] [address] Phone [phone] Care Team Providers Care Home Mortgage Disclosure Act Specialist Name Role Phone Susie White MD Primary Care Provider [phone] Reason for Visit * Reason Onset Date Comments Medication Refill 03/01/2023 [email or web address] Encounter Details Date Type Department Care Team Description 03/01/2023 Refill Hematology/Oncology [facility] [place] [address] [facility] [place] [address] Cory Infante MD [address] [facility] [place] [address] Malignant neoplasm of overlapping sites of both breasts in female, estrogen receptor positive (HCC) Allergies No known active allergiesdocumented as of this encounter (statuses as of 03/02/2023) Medications Medication Sig Dispensed Refills Start Date End Date Status Calcium 600 MG Oral TabletIndications:Vit alarcon D deficiency Take by mouth. 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 42 Each 5 03/02/2023 Active Kisqali (400 MG Dose) 200 MG Oral Tablet Therapy Pack (Ribociclib Succ (400 MG Dose))Indications:Mal ignant neoplasm of overlapping sites of both breasts in female, estrogen receptor positive (HCC) Take 400 mg by mouth in the morning. For 21 days on, 7 days off of a 28 day cycle. 42 Each 5 08/10/2022 03/01/2023 Discontinue d(Refill) documented as of this encounter (statuses as of 03/02/2023) Active Problems Problem Noted Date Stage 3a chronic kidney disease 06/16/20 20 Overview: Per CKD protocol - Per CKD protocol Adjustment insomnia 01/24/2020 Liver lesion 10/19/2019 Intra-abdominal lymphadenopathy 10/19/19 20 Metastatic cancer to intra-abdominal lym ph nodes [...] as of this encounter (statuses as of 03/02/2023) Resolved Problems Problem Noted Date Resolved Date [...] Infante MD PI CRC Name: Molly Chowdhury [facility] Contact PI or ORTHOPEDICALLY IMPAIRED TEACHER regarding any serious medical event, if new [...] Name: Molly Chowdhury CRC Contact PI or ORTHOPEDICALLY IMPAIRED TEACHER regarding any serious medical event, if new Rx given, ER visit, hospitalization, or billing question Diagnosis changed due to Research Module. Go to Snapshot for study details. 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 documented as of this encounter (statuses as of 03/02/2023) Immunizations Name Administration Dates Next Due COVID-19 mRNA, LNP-s, No Pre serve, 2-Dose Series (Moderna) 05/11/2021,10/04/2020,08/30/2020 Pneumococcal Conjugate Vacc, 13 Valent (Prevnar) 05/26/2020 Pneumococcal Polysaccharide PPV23 (Pneumovax) 10/01/2021 Seasonal Influenza Virus Vac cine, Unspecified Formulation 06/01/2019 Seasonal Influenza, Quadriva lent, No Preserve, 6 Mons & Above, IM 06/17/2022,10/01/2021,05/26/2020 Seasonal Influenza, Split, I IV3, With [...] encounter Miscellaneous Notes * Telephone Encounter - Radha Toscano, [facility] - 03/02/2023 9:14 AM EDT Refill Request EPIC Note Clinical Pharmacy Service (Hematology/Oncology): Refill Request(s) PHYSICIAN ACTION: No Assessment & Plan After reviewing the parameters in order to refill the patient's medication(s), the following was determined: The medication(s), ribociclib, was refilled and no parameters need to be addressed No communication to requesting entity necessary Refill Parameters The following parameters were assessed in order to decide whether or not this refill was appropriate: Refill Parameter Comments If the patient was seen in the last 6 months (12 months for [facility]N patients) Yes - 02/25/23 If the labs were completed per prescribing information recommendations or provider recommendations Yes - 02/04/23 If the labs were within normal limits or stable at baseline yes If the dose was correct and/or if the prescription sig reflects the current prescribed dose yes If there were any new drug interactions with the patient's oral chemotherapy No If there were any care gaps/baseline labs that need to be addressed No Radha Toscano RPh Ambulatory Clinical Pharmacist | Oral Chemotherapy Clinic [facility] 03/02/2023, 9:14 AM * Telephone Encounter - Rose Ospina LPN - 03/01/2023 4:18 PM EDT Received medication refill fax from [facility] for Kisqali 200mg (400mg/day) Per office visit with Dr. Infante on 02/25/23: "She will continue ribociclib and letrozole as we planned earlier " Patient follows with [facility], pended med and routed. documented in this encounter Plan of Treatment Upcoming Encounters Date Type Specialty Care Team Description 03/09/2023 Pharmacy Pharmacy [facility], [facility] Hem/Onc [address] [place] [address] 05/09/2023 Hospital Encounter Endoscopy Raheem Hagen MD [address] [place] [address] 05/09/2023 Surgery Endoscopy Raheem Hagen MD [address] [place] [address] COLONOSCOPY FLEXIBLE PROXIMAL DIAGNOSTIC 05/26/2023 Office Visit Dermatology Donita Cornejo PA-C [address] [place] [address] [place] [address] 08/23/2023 Imaging Radiology 08/30/2023 Office Visit Hematology Oncology Cory Infante MD 200 [facility] [place] [id number] Scheduled Procedures Name Priority Associated Diagnoses Date/Ti [...] exists Albumin/Creatinine Ratio 10/29/2023 10/28/2022, 02/2022 Depression Screening, Annual for Pts 12 and Over 10/29/2023 10/28/2022 DTaP,Tdap,and Td Vaccines (2 - Td or Tdap) 11/03/2023 11/02/2013 CKD PHOS USE SMARTSET 94744 12/02/202311/07, 10/12/2021, 02/07/2020 CKD HGB USE SMARTSET 87221 02/05/202402/04, 02/04/2023, 12/01/2022, Additional history exists Diabetes [...] this encounter Medical Devices Implanted Type Area Fisheries Manager Device Identifier Shelf Expiration Date Model / Serial / Lot Implant Hi Prof Gel 750cc - [id number] Implanted:Qty: 1 on 07/02/2013 at OR [facility] Left: Breast MENTOR DARVIN 04/01/2014 [id number] / [id number] / [id number] documented as of this encounter Visit Diagnoses Diagnosis Malignant neoplasm of overlapping sites of both breasts in female, estrogen receptor positive (HCC) Screen for colon cancer Special screening for [...] Directives occurred with: Not Discussed Care Teams Home Mortgage Disclosure Act Specialist Relationship Specialty Start Date End Date Susie White MD [address] [facility] [place] [address] PCP - General Internal Medicine 03/02/12 documented as of this encounter
--- OUTSIDE RECORDS SUMMARY | 2023-07-03 02:47 | External Medical Summary ---
Author Name Unknown Address Unknown Organization K01:[facility] [address] [facility] [place] [address] Laboratory Report Ordering Provider Test Date Status RISA JENKINS 02/04/2023 12:33:09 Final Observation Date Value Abnormality Reference (Units ) Status BUN 02/04/2023 12:33:09 17 6-20 (mg/dL) Final Creatinine 02/04/2023 12:33:09 1.2 Above high normal 0.5-1.0 (mg/dL) Final Glomerular filtration rate/1.73 sq M.predicted [Volume Rate/Area] in Serum, Plasma or Blood by Creatinine-based formula (CKD-EPI) 02/04/2023 12:33:09 55 Below low normal >=60 (mL/min) Final eGFR is calculated based on the CKD-EPI 2020 equation SODIUM 02/04/2023 12:33:09 140 135-146 (m mol/L) Final Potassium 02/04/2023 12:33:09 4.3 3.5-5.1 (m mol/L) Final Cl 02/04/2023 12:33:09 105 98-107 (mm ol/L) Final CO2 02/04/2023 12:33:09 25 22-32 (mmo l/L) Final Anion gap 02/04/2023 12:33:09 10 7-15 (mmol /L) Final Glucose 02/04/2023 12:33:09 57 Below low normal 70- 120 (mg/dL) Final Albumin 02/04/2023 12:33:09 4.6 3.8-5.0 (g /dL) Final AST (Aspartate aminotransferase) 02/04/2023 12:33:09 20 10-35 (U/L) Fin al Alk Phos 02/04/2023 12:33:09 53 35-130 (U/ L) Final Bilirubin, Total 02/04/2023 12:33:09 0.3 <=1 .2 (mg/dL) Final Calcium 02/04/2023 12:33:09 9.7 8.4-10.2 ( mg/dL) Final Protein 02/04/2023 12:33:09 6.7 6.0-8.3 (g /dL) Final ALT (Alanine aminotransferase) 02/04/2023 12:33:09 26 10-35 (U/L) Chad donovan Performing Location [facility] N [address]ano. [facility] [address]
--- OUTSIDE RECORDS SUMMARY | 2023-07-03 02:47 | External Medical Summary | Summary of Care ---
Author Name Unknown Organization [facility] Address [address] [facility] [address] Phone [phone] Care Team Providers Care Software Packaging Engineer Name Role Phone Susie White MD Primary Care Provider [phone] Reason for Visit * Reason Onset Date Comments Appointment 02/25/2023 Encounter Details Date Type Department Care Team Description 02/25/2023 Telephone Hematology/Oncology Salma Jaquez [place] [address] [facility] [place] [address] Cory Infante [facility] [address] Appointment Allergies No known active allergiesdocumented as of this encounter (statuses as of 02/25/2023) Medications Medication Sig Dispensed Refills Start Date [...] for Nausea. 30 Tab 3 10/19/2019 Active Kisqali (400 MG Dose) 200 MG Oral Tablet Therapy Pack (Ribociclib Succ (400 MG Dose))Indications:Malign ant neoplasm of overlapping sites of both breasts in female, estrogen receptor positive (HCC) Take 400 mg by mouth in the morning. For 21 days on, 7 days off of a 28 day cycle. 42 Each 5 08/10/2022 Active traZODone HCl 50 MG Oral Tablet (Desyrel)Indications:Oth er insomnia Take 1 Tablet by mouth at bedtime. 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 90 Tablet 3 10/12/2022 Active documented as of this encounter (statuses as of 02/25/2023) Active Problems Problem Noted Date Stage 3a [...] as of this encounter (statuses as of 02/25/2023) Resolved Problems Problem Noted Date Resolved Date [...] Infante MD PI CRC Name: Molly Chowdhury [facility] Contact PI or TOOL TURRET LATHE SET UP OPERATOR regarding any serious medical event, if [...] Infante MD PI CRC Name: Molly Chowdhury [facility] Contact PI or TOOL TURRET LATHE SET UP OPERATOR regarding any serious medical event, if new Rx given, ER visit, hospitalization, or billing question Diagnosis changed due to Research Module. Go to Snapshot for study details. 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 documented as of this encounter (statuses as of 02/25/2023) Immunizations Name Administration Dates Next Due COVID-19 [...] Miscellaneous Notes * Telephone Encounter - LEN Mendoza - 02/25/2023 11:01 AM EDT Patient scheduled for a CT SCAN C/A/P @ [facility] for 08/23/23 @ 9:30am. Patient given prep instructions. documented in this encounter Plan of Treatment Upcoming Encounters Date Type Specialty Care Team Description 02/25/2023 Laboratory [facility] [place], Lab Scenery [address] [place] [facility] [place] [address] Arrived 03/09/2023 Pharmacy Pharmacy [facility] [place], [facility] Hem/Onc [address] [facility] [place] [id number] 05/09/2023 Hospital Encounter Endoscopy Raheem Hagen MD [address] [place] [address] 05/09/2023 Surgery Endoscopy Raheem Hagen MD [address] [place] [address] COLONOSCOPY FLEXIBLE PROXIMAL DIAGNOSTIC 05/26/2023 Office Visit Dermatology Donita Cornejo PA-C [address] [place] [address] [place] [address] 08/23/2023 Imaging Radiology 08/30/2023 Office Visit Hematology Oncology Cory Infante [facility] [address] [facility] [address] Scheduled Procedures Name Priority Associated Diagnoses Date/Ti [...] Albumin/Creatinine Ratio 10/29/2023 10/28/2022, 03/0 02/2022 Depression Screening, Annual for Pts 12 and Over 10/29/2023 10/28/2022 DTaP,Tdap,and Td Vaccines (2 - Td or Tdap) 11/03/2023 11/02/2013 CKD PHOS USE SMARTSET 60086 12/02/202311/07, 10/12/2021, 02/07/2020 CKD HGB USE SMARTSET 07165 02/05/202402/04, 02/04/2023, 12/01/2022, Additional history exists Diabetes [...] this encounter Medical Devices Implanted Type Area Sales Donor Recruitment Representative Device Identifier Shelf Expiration Date Model / Serial / Lot Implant Hi Prof Gel 750cc - [id number] Implanted:Qty: 1 on 07/02/2013 at [place] [facility] [place] Left: Breast MENTOR DARVIN 04/01/2014 [id number] / [id number] / [id number] documented as of this encounter Advance Directives [...] Directives occurred with: Not Discussed Care Teams Software Packaging Engineer Relationship Specialty Start Date End Date Susie White MD [address] [place] [address], [place] [address] PCP - General Internal Medicine 03/02/12 documented as of this encounter
--- OUTSIDE RECORDS SUMMARY | 2023-07-03 02:47 | External Medical Summary | Summary of Care ---
Author Name Unknown Organization [facility] Address [address] [place] [address] Phone [phone] Care Team Providers Care Gunite Mixer Name Role Phone Susie Whiet MD Primary Care Provider [phone] Reason for Visit * Reason Comments Medication Management Encounter Details Date Type Department Care Team Description 01/17/2023 Pharmacy Pharmacy Hematology Oncology [facility] [address] [place], [place] [phone] [facility], [facility] Clinic Hem/Onc [address] [place], [place] [phone] Malignant neoplasm of overlapping sites of both breasts in female, estrogen receptor positive (HCC)* Allergies No known active allergiesdocumented as of this encounter (statuses as of 01/17/2023) Medications Medication Sig Dispensed Refills Start Date [...] as of this encounter (statuses as of 01/17/2023) Active Problems Problem Noted Date Stage 3a [...] as of this encounter (statuses as of 01/17/2023) Resolved Problems Problem Noted Date Resolved Date [...] Molly Chowdhury [facility] Contact PI or CHRISTMAS TREE FARM MANAGER regarding any serious medical event, if [...] Molly Chowdhury [facility] Contact PI or CHRISTMAS TREE FARM MANAGER regarding any serious medical event, if new Rx given, ER visit, hospitalization, or billing question Diagnosis changed due to Research Module. Go to Snapshot for study details. 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 documented as of this encounter (statuses as of 01/17/2023) Immunizations Name Administration Dates Next Due COVID-19 [...] as of this encounter Progress Notes * Keke Hicks, [facility] - 01/17/2023 4:52 PM EDT MEDICATION THERAPY MANAGEMENT RIBOCICLIB (KISQALI) TREATMENT PROGRESS NOTE Shante "Radha" Beryl [id number] Patient Phone Numbers Communication: Left message requesting return call to assess toleration to therapy Current Treatment: Medication: Ribociclib (Kisqali) Indication: ER+/CA+/HER2- met breast cancer Dose: 400mg daily D1-21 every 28 days ( 01/11/20) Administration: +/- food Start Date: 11/28/2019 Primary Oncologist: Dr Yeimy Infante Supportive Care Meds: Letrozole Ondansetron Prochlorperazine Current cycle: 01/05 - 01/25 Next cycle: 02/02 - 02/22 (anticipated) Interval History: C1 stopped early due to diarrhea C2 stopped early due to grade 3 neutropenia Per previous discussion with Dr. Infante, lab monitoring extended to q3mo due to pt financial concern Changes to medication list since last visit? No Assessment and Plan: Continue current therapy and q3mo labs (scheduled 02/24 @0740 with OV) Assessment of compliance: compliant Assessment of adverse effects attributed to drug therapy: N/A Dose adjustment needed based on lab or adverse drug reaction? No Follow up: 5 weeks Labs/OV; 7 weeks MTM Keke Hicks, PharmD, BCOP Clinical Pharmacist [facility] 01/17/2023, 4:57 PM Pertinent labs:n/a Suggested Labs: CBCd and LFTs baseline, q2w [...] Encounters Date Type Specialty Care Team Description 02/09/2023 Imaging Radiology 02/24/2023 Laboratory Laboratory [place] [address] [place] [address] 02/25/2023 Office Visit Hematology Oncology Cory Infante MD [address] [place] [address] 05/09/2023 Hospital Encounter Endoscopy Raheem Hagen MD [address] [place] [id number] 05/09/2023 Surgery Endoscopy Raheem Hagen MD [address] [place] [address] COLONOSCOPY FLEXIBLE PROXIMAL DIAGNOSTIC 05/26/2023 Office Visit Dermatology Donita Cornejo PA-C [address] [place] [address] [place] [address] Scheduled Procedures Name Priority Associated Diagnoses Date/Ti me COLONOSCOPY FLEXIBLE PROXIMAL DIAGNOSTIC Screen for colon cancer 05/09/2023 8:30 AM EDT Health Maintenance Due Date Last Done Comments Hepatitis B (1 of 3 - 3-dose series) 1972 HIV Screening 1987 Hepatitis C Screening 1990 Cologuard 2017 Colonoscopy 2017 Colorectal Cancer Screening 2017 Fecal Occult Blood Test 2017 Sigmoidoscopy 2017 COVID-19 Vaccine (5 - Booster for Moderna series) 03/30/2022 02/02/2022, 05/11/2021, 10/04/2020, Additional history exists GFR 06/02/2023 12/01/2022, 08/09, 06/07/2022, Additional history exists Albumin/Creatinine Ratio 10/29/2023 10/28/2022, 02/2022 Depression Screening, Annual for Pts 12 and Over 10/29/2023 10/28/2022 DTaP,Tdap,and Td Vaccines (2 - Td or Tdap) 11/03/2023 11/02/2013 CKD HGB USE SMARTSET 06405 12/02/202312/01, 12/01/2022, 08/30/2022, Additional history exists CKD PHOS USE SMARTSET 73074 12/02/202311/07, 10/12/2021, 02/07/2020 Diabetes Screening 12/01/2025 12/01/2022, 0 08/30/2022, 06/07/2022, Additional history exists Pneumococcal Vaccine: Pediatrics (0 to 5 Years) and At-Risk Patients (6 to 64 Years) (3 - PPSV23 if available, else PCV20) 10/01/2026 10/01/2021, 05/26/2020 Lipid Panel 12/02/2027 12/01/2022, 03/0 02/2022, 11/03/2020, Additional history exists Influenza Vaccine (FLU shot) Completed 05/2022, 10/01/2021, 10/01/2021, Additional history exists Zoster Vaccines Completed 01/06/2023, 10/28/2022 GARDASIL-HPV IMMUNIZATION SERIES Aged Out No longer eligible based on patient's age to complete this topic MENINGOCOCCAL (MENACTRA/MENVEO) Aged Out No longer eligible based on patient's age to complete this topic documented as of this encounter Medical Devices Implanted Type Area District Captain Device Identifier Shelf Expiration Date Model / Serial / Lot Implant Hi Prof Gel 750cc - [id number] Implanted:Qty: 1 on 07/02/2013 at [facility] Left: Breast MENTOR DARVIN 04/01/2014 [id number] / [id number] / [id number] documented as of this encounter Visit Diagnoses Diagnosis Malignant neoplasm of overlapping sites of both breasts in female, estrogen receptor positive (HCC)- Primary Screen for colon cancer Special screening [...] Directives occurred with: Not Discussed Care Teams Gunite Mixer Relationship Specialty Start Date End Date Susie White MD [address] [facility] [place] [address] PCP - General Internal Medicine 03/02/12 documented as of this encounter
--- OUTSIDE RECORDS SUMMARY | 2023-07-03 02:47 | External Medical Summary | Summary of Care ---
Author Name Unknown Organization [facility] Address [address] [place] [address] Phone [phone] Care Team Providers Care Production Supply Equipment Tender Name Role Phone Susie White MD Primary Care Provider [phone] Reason for Visit * Reason Comments Outpatient Testing Encounter Details Date Type Department Care Team Description 02/25/2023 Laboratory Laboratory [facility] [address] [place] [address] [facility] [address] [place] [id number] Malignant neoplasm of overlapping sites of right female breast (HCC) Allergies No known active allergiesdocumented as [...] Infante MD PI CRC Name: Molly Chowdhury [facility] Contact PI or GOLDBEATER regarding any serious medical event, if new [...] Infante MD PI CRC Name: Molly Chowdhury [facility] Contact PI or GOLDBEATER regarding any serious medical event, if new [...] Specialty Care Team Description 03/09/2023 Pharmacy Pharmacy [facility] [place] [place] [facility] Hem[facility]Onc [address] [place] [address] 05/09/2023 Hospital Encounter Endoscopy Raheem Hagen MD [address] [place] [address] 05/09/2023 Surgery Endoscopy Raheem Hagen MD [address] [place] [address] COLONOSCOPY FLEXIBLE PROXIMAL DIAGNOSTIC 05/26/2023 Office Visit Dermatology Donita Cornejo PA-C [address] [place] [address] [place] [address] 08/23/2023 Imaging Radiology 08/30/2023 Office Visit Hematology Oncology Cory Infante MD [address] [facility], [place] [address] Pending Results Name Type Priority Associated Diagnoses Date /Time URINALYSIS, REFLEX TO CULTURE (NOT FOR NEUTROPENIC PATIENTS) Lab Routine Malignant neoplasm of overlapping sites of right female breast (HCC) 02/25/2023 11:25 AM EDT URINALYSIS, REFLEX TO CULTURE (CUP ONLY) Lab Routine Malignant neoplasm of overlapping sites of right female breast (HCC) 02/25/2023 11:25 AM EDT URINALYSIS, REFLEX TO CULTURE Lab Routine Malignant neoplasm of overlapping sites of right female breast (HCC) 02/25/2023 11:25 AM EDT Scheduled Procedures Name Priority Associated Diagnoses [...] exists Albumin/Creatinine Ratio 10/29/2023 10/28/2022, 03/02/2022 Depression Screening, Annual for Pts 12 and Over 10/29/2023 10/28/2022 DTaP,Tdap,and Td Vaccines (2 - Td or Tdap) 11/03/2023 11/02/2013 CKD PHOS USE SMARTSET 40060 12/02/202[address] 01/2023, 10/12/2021, 02/07/2020 CKD HGB USE SMARTSET 56686 02/05/202402/04, 02/04/2023, 12/01/2022, Additional history exists Diabetes [...] this encounter Medical Devices Implanted Type Area Site Interpreter Device Identifier Shelf Expiration Date Model / Serial / Lot Implant Hi Prof Gel 750cc - [id number] Implanted:Q[place] 1 [place] 07[place]02[place] [facility] [place] Breast MENTOR DARVIN 04/01/2014 [id number] / [id number] / [id number] documented as of this encounter Visit Diagnoses Diagnosis Malignant neoplasm of overlapping sites of right female breast (HCC) Malignant neoplasm of other specified sites of female breast Screen for colon cancer Special screening for [...] Directives occurred with: Not Discussed Care Teams Production Supply Equipment Tender Relationship Specialty Start Date End Date Susie White MD [address] [place] [address], [place] [address] PCP - General Internal Medicine 03/02/12 documented as of this encounter
--- OUTSIDE RECORDS SUMMARY | 2023-07-03 02:47 | External Medical Summary ---
Author Name Unknown Address Unknown Organization K01[place] [place] [address] [facility] [address] Laboratory Report Ordering Provider Test Date Status RISA JENKINS 02/25/2023 11:25:31 Final Observation Date Value Abnormality Reference (Units ) Status Color of Urine by Auto 02/25/2023 11:25:31 Colorless Colorless, Light Yellow, Yellow, Dark Yellow Final Clarity, Urine 02/25/2023 11:25:31 Clear Clear Final Glucose [Mass/volume] in Urine by Automated test strip 02/25/2023 11:25:31 Negative Negative (mg/dL) Final Bilirubin.total [Presence] in Urine by Automated test strip 02/25/2023 11:25:31 Negative Negative Final Ketones [Mass/volume] in Urine by Automated test strip 02/25/2023 11:25:31 Negative Negative (mg/dL) Final Specific gravity, Urine 02/25/2023 11:25:31 1.006 1.003-1.030 Final Hemoglobin [Presence] in Urine by Automated test strip 02/25/2023 11:25:31 Negative Negative Final pH, Urine 02/25/2023 11:25:31 7.0 5.0-7.5 (Units) Final Protein [Mass/volume] in Urine by Automated test strip 02/25/2023 11:25:31 Negative Negative (mg/dL) Final Urobilinogen [Mass/volume] in Urine by Automated test strip 02/25/2023 11:25:31 Normal Normal (mg/dL) Final Nitrite [Presence] in Urine by Automated test strip 02/25/2023 11:25:31 Negative Negative Final Leukocyte esterase [Presence] in Urine by Automated test strip 02/25/2023 11:25:31 Negative Negative Final RBC, Urine 02/25/2023 11:25:31 0-2 0-2 (/HPF) Final WBC, Urine 02/25/2023 11:25:31 0-2 0-2 (/HPF) Final Bacteria [#/area] in Urine sediment by Microscopy high power field 02/25/2023 11:25:31 0-25 0-25 (/HPF) Final CULTURE, URINE - ELSIE 02/25/2023 11:25:31 Final Culture not indicated by uri nalysis results Performing Location [facility] [place] [address] [facility] [address]
--- OUTSIDE RECORDS SUMMARY | 2023-07-03 02:47 | External Medical Summary | Summary of Care ---
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) Procedures CT CHEST/ABDOMEN/PELVIS WITH IV CONTRAST WITH ORAL CONTRAST Cory Infante MD [address] [address] Referral ID Status Reason Start Date Expiration Date V isits Requested Visits Authorized [id number] Pending Review 02/25/2023 999 999 Reason for Visit * Reason Comments Follow Up Review CT Encounter Details Date Type Department Care Team Description 02/25/2023 Office Visit Hematology/Oncology State Concepcion Trin[place] [address] [address] Cory Infante MD [address] [address] Malignant neoplasm of overlapping sites of both [...] CRC Name: Molly LIND Contact PI or DRAPERY MAKER regarding any serious medical event, if new [...] Name: Molly Chowdhury CRC Contact PI or DRAPERY MAKER regarding any serious medical event, if new [...] Sign Reading Time Taken Comments Blood Pressure 137/84 02/25/2023 10:35 AM EDT Pulse 56 02/25/2023 10:35 AM EDT Temperature 36.6 C (97.8 F) 02/25/2023 1 0:35 AM EDT Respiratory Rate 16 02/25/2023 10:3 5 AM EDT Oxygen Saturation 98% 02/25/2023 10: 35 AM EDT Inhaled Oxygen Concentration - - Weight 86.1 kg (189 lb 12.8 oz) 023 10:35 AM EDT Height - - Body Mass Index 30.63 10/28/2022 9:16 AM EDT documented in this encounter Progress Notes * Cory Infante MD - 02/25/2023 10:45 AM EDT NAME: Shante Cordoba 1970 52-year-old [...] 100% malignamt cells, weak to intermediate positive, VA negative, Her2/Maximilian 2+. FISH -ve. CURRENT TREATMENT: [...] in January, (no hysterectomy) -tamoxifen between January [id number] 2020. Diagnosis of right breast: She says [...] ER strongly positive in 100% malignant cells, VA moderatelypositive in 50% malignant cells, Omu1Bya negative. - Core needle biopsy of 4 o'clock lesion --> Invasive lobular carcinoma, grade 2, measuring 0.6 cm on the slide, ER strongly positive in 100% malignant cells, VA moderately positive in 50% malignant cells. Blv1Sjt negative. She is otherwise doing well, has [...] She was seen by Dr. Farmer at [facility], underwent bronchoscopic evaluation (01/28/2016, biopsy from the [...] 100% of cells, intermediate to weak positive, VA negative, Her2/Maximilian equivocal (2+),FISH negative. -gallbladder showed [...] Ribociclib, now diarrhea has improved and manageable, no new cardiac or pulmonary symptom, no upper extremity lymphedema, no leg edema, ambulates well, good ECOG PS 0, stable weight around 189 lb. She denies any increasing headache. No focal neurological symptoms. Denies any tingling and numbness of extremities. She takes trazodone for insomnia, takes vitamin-D and Calcium supplementation on regular basis. No fever, no infections. She denies any active urinary symptoms, no hematuria. Past Medical History: Diagnosis Date Breast cancer (HCC) invasive ductal Hematuria, microscopic 2014 intermittent resolved now Sarcoidosis Past Surgical History: Procedure Laterality Date BREAST CAPSULECTOMY, PERIPROSTHETIC 07/02/2013 PERIPROSTHETIC CAPSULECTOMY BREAST performed by Delio Chan MD at [facility] BREAST RECONSTRUCTION 04/21/12 I 04/21/2012 mmediate reconstruction of bilateral breasts with adjustable implant to be utilized for expansion and acellular dermal matrix 04/21/12 Dr. Chan at [facility] BRONCHOSCOPY, DIAGNOSTIC N/A 01/28/2016 BRONCHOSCOPY DIAGNOSTIC WITH OR WITHOUT WASHING performed by Bill Farmer MD at ENDOSCOPY [facility] DILATION AND CURETTAGE (D&C) 06/2008 D&C at [place], [place] EGD, FLEXIBLE, DIAGNOSTIC 11/23/2018 gastritis/ESOPHAGOGASTRODUODENOSCOPY (EGD), FLEXIBLE, TRANSORAL, DIAGNOSTIC performed by Lavelle Ruiz MD at ENDOSCOPY [facility] EGD, FLEXIBLE,W/ENDOSCOPIC US 10/03/2019 lymph node, peripancreatic bx - metastatic cancer, IPMN / INPT [facility] ERCP 10/03/2019 choledocholithiasis / INPT [facility] EXPLORATION OF ABDOMEN 01/14/2014 EXPLORATORY LAPAROTOMY performed by Danae Ceron MD at [facility] LAPAROSCOPY; CHOLECYSTECTOMY 09/2019 LAPAROSCOPY;RMV ADNEXAL STRUCT 01/14/2014 LAPAROSCOPIC OOPHORECTOMY AND OR SALPINGECTOMY performed by Danae Ceron MD at [facility] MASTECTOMY, MODIFIED RADICAL 04/21/12 04/21/2012 Right mastectomy with right axillary lymph node dissectiona nd left prophylactic mastectomy 04/21/12 Dr. Carbajal at [facility] MASTECTOMY,RADICAL 2011 OTHER (INFORMATION) 11/1986 Left ankle surgery, [place] OVARY/TUBAL CANCR RESEC W/SALPINGO-OOPHEREC 01/14/2014 REMOV GLO ROBI DEQUAN ACC DEV,WITH 02/18/14 Removal of A port left chest 02/18/14 Dr. Carbajal in the clinic REMOVAL OF OVARY/OVIDUCT(S) 2013 preventive for breast cancer , uterus and cervix intact REPLACE TISSUE CASCADE OPERATOR 07/02/2013 REPLACEMENT EXPANDERS WITH PERMANENT PROSTHESIS performed by Delio Chan MD at [facility] SKIN TISSUE REARRANGEMENT 07/02/2013 SKIN TISSUE REARRANGEMENT performed by Delio Chan MD at [facility] SKIN TISSUE REARRANGEMENT, ADD-ON 07/02/2013 SKIN TISSUE REARRANGEMENT, ADD-ON performed by Delio Chan MD at [facility] TOTAL ABD HYSTERECTOMY W/WO REMOVAL OF TUBE(S) [...] as needed for Nausea. 30 Tab 3 Kisqali (400 MG Dose) 200 MG Oral Tablet Therapy Pack (Ribociclib Succ (400 MG Dose)) Take 400 mg by mouth in the morning. For 21 days on, 7 days off of a 28 day cycle. 42 Each 5 traZODone HCl 50 MG Oral Tablet (Desyrel) Take 1 Tablet by mouth at bedtime. 90 Tablet 3 Letrozole 2.5 MG Oral Tablet (Femara) Take 1 Tablet by mouth in the morning. 90 Tablet 3 No current facility-administered medications for this visit. [...] -WBC 3800, H&H of 13.4/41.3, Platelet count [id number]. ASSESSMENT AND PLAN: 52-year-old female, a case [...] late September 2019, she was admitted at [facility] for symptomatic cholecystitis, underwent laparoscopic cholecystectomy, she also had some periportal lymphadenopathy, biopsy from that lymph node showed metastatic breast cancer, ER 100% positive in malignant cells (weak to intermediate), VA negative, Her2/Maximilian 2+. FISH negative. PET-CT scan, [...] renal pelvis urothelial enhancement. No active urinarysymptoms, will check urinalysis. If positive for blood, will have urology evaluation. I reviewed her blood workup done recently, serum creatinine level is now around 1.1-1.2 mg/dL She will continue ribociclib and letrozole as we planned earlier She will continue vitamin-D and Calcium supplementation I am planning for follow-up CT scan of chest, abdomen pelvis in about 6 months. I am planning to see her back in the clinic about [address] Cory Infante Hem/Onc (This note was [...] Nursing Notes * Ania Teague CMA - 02/25/2023 10:36 AM EDT Patient identifed by name and birthdate Do you have any concerns about pain management for today's visit? No Living Will or Advance Directive for Health Care as noted on the problem list. [facility] is a way you can talk to your provider on line through e-mail. Would you like to sign up? I can activate it for you? ALREADY ACTIVE Filed Vitals: 02/25/23 1035 BP: 137/84 Pulse: 56 Resp: 16 Temp: 36.6 C (97.8 F) TempSrc: Tympanic SpO2: 98% Weight: 86.1 kg (189 lb 12.8 oz) Patient was instructed to not get [...] Specialty Care Team Description 03/09/2023 Pharmacy Pharm[place] [facility] Hem[facility]Onc [address] [place] [address] 05/09/2023 Hospital Encounter Endoscopy Raheem Hagen MD [address] [place] [address] 05/09/2023 Surgery Endoscopy Raheem Hagen MD [address] [place] [address] COLONOSCOPY FLEXIBLE PROXIMAL DIAGNOSTIC 05/26/2023 Office Visit Dermatology Donita Cornejo PA-C [address] [place] [address] [place] [address] 08/23/2023 Imaging Radiology 08/30/2023 Office Visit Hematology Oncology Cory Infante MD [address] 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) Expected: 02/25/2023, Expires: 02/26/2024 Scheduled Procedures Name Priority Associated Diagnoses Date/Ti [...] Additional history exists Albumin/Creatinine Ratio 10/29/2023 10/28/2022, 03 02/2022 Depression Screening, Annual for Pts 12 and Over 10/29/2023 10/28/2022 DTaP,Tdap,and Td Vaccines (2 - Td or Tdap) 11/03/2023 11/02/2013 CKD PHOS USE SMARTSET 21999 12/02/2023 04/2 01/2023, 10/12/2021, 02/07/2020 CKD HGB USE SMARTSET 15187 02/05/202402/04, 02/04/2023, 12/01/2022, Additional history exists Diabetes Screening 02/04/2026 02/04/2023, 0 12/01/2022, 08/30/2022, Additional history exists Pneumococcal Vaccine: Pediatrics (0 to 5 Years) and At-Risk Patients (6 to 64 Years) (3 - PPSV23 or PCV20) 10/01/2026 10/01/2021, 05/26/2020 Lipid Panel 12/02/2027 12/01/2022, 0 02/2022, 11/03/2020, Additional history exists COVID-19 Vaccine Completed 07/28/2022, , 05/11/2021, Additional history exists Zoster Vaccines Completed 01/06/2023, 10/28/2022 GARDASIL-HPV IMMUNIZATION SERIES Aged Out No longer eligible based on patient's age to complete this topic MENINGOCOCCAL (MENACTRA/MENVEO) Aged Out No longer eligible based on patient's age to complete this topic documented as of this encounter Medical Devices Implanted Type Area Book Author Device Identifier Shelf Expiration Date Model / Serial / Lot Implant Hi Prof Gel 750cc - [id number] Implanted:Qty: 1 on 07/02/2013 at OR [facility] Left: Breast Data[employer] DARVIN 04/01/2014 [id number] / [id number] / [id number] documented as of this encounter Visit Diagnoses [...] occurred with: Not Discussed Care Teams It Trainer Relationship Specialty Start Date End Date [facility]ie [facility] [address] [facility] [address] PCP - General Internal Medicine 03/02/12 documented as of this encounter
--- OUTSIDE RECORDS SUMMARY | 2023-07-03 02:47 | External Medical Summary | Summary of Care ---
Author Name Unknown Organization [facility] Address [address] [place] [facility] [place] [address] Phone [phone] Care Team Providers Care Glass Processing Worker Name Role Phone Ssuie White MD Primary Care Provider Reason for Visit * Reason Onset Date Comments Test Results Lab 03/01/2023 Encounter Details Date Type Department Care Team Description 03/01/2023 Telephone Hematology/Oncology [facility]ma Jaque[facility] [place] [address] [facility] [place] [address] [facility] [address] [facility] [address] Test Results Lab Allergies No known active allergiesdocumented as of this encounter (statuses as of 03/01/2023) Medications Medication Sig Dispensed Refills Start Date [...] as of this encounter (statuses as of 03/01/2023) Active Problems Problem Noted Date Stage 3a [...] as of this encounter (statuses as of 03/01/2023) Resolved Problems Problem Noted Date Resolved Date [...] Infante MD PI CRC Name: Molly Chowdhury [facility] Contact PI or CONVENTIONS ASSISTANT regarding any serious medical event, if [...] Infante MD PI CRC Name: Molly Chowdhury [facility] Contact PI or CONVENTIONS ASSISTANT regarding any serious medical event, if new Rx given, ER visit, hospitalization, or billing question Diagnosis changed due to Research Module. Go to Snapshot for study details. 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 documented as of this encounter (statuses as of 03/01/2023) Immunizations Name Administration Dates Next Due COVID-19 [...] encounter Miscellaneous Notes * Telephone Encounter - Rose Ospina LPN - 03/01/2023 11:18 AM EDT Notified patient per Need Fixed message, patient is active ---- Message from Cory Infante MD sent at 02/28/2023 5:36 PM EDT ----- -urinalysis -> negative, no blood. No signs of infection. No further workup is indicated. documented in this encounter Plan of Treatment Upcoming Encounters Date Type Specialty Care Team Description 03/09/2023 Pharmacy Pharmacy [facility] Hem[facility]Onc [address] [place] [address] 05/09/2023 Hospital Encounter Endoscopy Raheem Hagne MD [address] [place] [address] 05/09/2023 Surgery Endoscopy Raheem Hagen MD [address] [place] [address] COLONOSCOPY FLEXIBLE PROXIMAL DIAGNOSTIC 05/26/2023 Office Visit Dermatology Donita Cornejo PA-C [address] [place] [address] [place] [address] 08/23/2023 Imaging Radiology 08/30/2023 Office Visit Hematology Oncology Cory [facility]ante MD [address] [facility] [address] Scheduled Procedures Name Priority Associated Diagnoses Date/Ti [...] exists Albumin/Creatinine Ratio 10/29/2023 10/28/2022, 0302/2022 Depression Screening, Annual for Pts 12 and Over 10/29/2023 10/28/2022 DTaP,Tdap,and Td Vaccines (2 - Td or Tdap) 11/03/2023 11/02/2013 CKD PHOS USE SMARTSET 54516 12/02/20232 01/2023, 10/12/2021, 02/07/2020 CKD HGB USE SMARTSET 94564 02/05/202402/04, 02/04/2023, 12/01/2022, Additional history exists Diabetes [...] this encounter Medical Devices Implanted Type Area Periodontal Assistant Device Identifier Shelf Expiration Date Model / Serial / Lot Implant Hi Prof Gel 750cc - [id number] Implanted:Qty: 1 on 07/02/2013 [place] [facility]: Breast MENTOR DARVIN 04/01/2014 [id number] / [id number] / [id number] documented as of this encounter Advance Directives [...] occurred with: Not Discussed Care Teams Glass Processing Worker Relationship Specialty Start Date End Date Susie White MD [address] [place] [address] PCP - General Internal Medicine 03/02/12 documented as of this encounter
--- OUTSIDE RECORDS SUMMARY | 2023-07-03 02:47 | External Medical Summary ---
Author Name Unknown Address Unknown Organization K01:LABORATORY [facility] - [facility] [address] [facility] [address] [facility] [address] Laboratory Report Ordering Provider Test Date Status RISA JENKINS 02/04/2023 12:33:09 Final Observation Date Value Abnormality Reference (Units ) Status WBC, Total 02/04/2023 12:33:09 3.84 Below low normal 4.00-10.80 (K/uL) Final RBC 02/04/2023 12:33:09 4.01 3.85-5.15 (M/uL) Final Hemoglobin 02/04/2023 12:33:09 13.4 12.0-15.3 (g/dL) Final HCT 02/04/2023 12:33:09 41.3 36.0-45.2 (%) Final MCV 02/04/2023 12:33:09 103.0 81.5-97.5 (fL) Final MCH 02/04/2023 12:33:09 33.4 27.0-34.0 (pg) Final MCHC 02/04/2023 12:33:09 32.4 32.0-36.0 (g/dL) Final RDW 02/04/2023 12:33:09 13.0 11.5-15.5 (%) Final Platelets 02/04/2023 12:33:09 191 140-400 (K/uL) Final MPV 02/04/2023 12:33:09 10.4 6.6-11.1 (fL) Final Nucleated erythrocytes/100 leukocytes [Ratio] in Blood by Automated count 02/04/2023 12:33:09 0 <=0 (/100 WBCs) Final Performing Location LABORATORY [facility] - [address] [place] [address]
--- OUTSIDE RECORDS SUMMARY | 2023-07-03 02:47 | External Medical Summary | Summary of Care ---
Author Name Unknown Organization [facility] Address [address] [place] [address] Phone [phone] Care Team Providers Care Barrel Loader And Cleaner Name Role Phone Susie White MD Primary Care Provider [phone] Reason for Visit * Reason Comments Outpatient Testing Encounter Details Date Type Department Care Team Description 02/04/2023 Laboratory Laboratory, [place] [address] [place] [address] [place] [address] [place] [address] Malignant neoplasm of overlapping sites of both breasts in female, estrogen receptor positive (HCC) Allergies No known active allergiesdocumented as of this encounter (statuses as of 02/04/2023) Medications Medication Sig Dispensed Refills Start Date [...] as of this encounter (statuses as of 02/04/2023) Active Problems Problem Noted Date Stage 3a [...] as of this encounter (statuses as of 02/04/2023) Resolved Problems Problem Noted Date Resolved Date [...] Infante MD PI CRC Name: Molly Chowdhury [facility] Contact PI or EARLY CHILDHOOD ASSOCIATE regarding any serious medical event, if new [...] Infante MD PI CRC Name: Molly Chowdhury [facility] Contact PI or EARLY CHILDHOOD ASSOCIATE regarding any serious medical event, if new Rx given, ER visit, hospitalization, or billing question Diagnosis changed due to Research Module. Go to Snapshot for study details. 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 documented as of this encounter (statuses as of 02/04/2023) Immunizations Name Administration Dates Next Due COVID-19 [...] Specialty Care Team Description 02/09/2023 Imaging Radiology 02/25/2023 Office Visit Hematology Oncology Cory Infante MD [address] [place] [address] 03/09/2023 Pharmacy Pharmacy [facility] Hem/Onc [address] [place], [place] [phone] 05/09/2023 Hospital Encounter Endoscopy Raheem Hagen MD [address] [place] [address] 05/09/2023 Surgery Endoscopy Raheem Hagen MD [address] [place] [address] COLONOSCOPY FLEXIBLE PROXIMAL DIAGNOSTIC 05/26/2023 Office Visit Dermatology Donita Cornejo PA-C [address] [place] [address] [place] [phone] Pending Results Name Type Priority Associated Diagnoses Date /Time CBC WITH WBC DIFFERENTIAL Lab STAT Malignant neoplasm of overlapping sites of both breasts in female, estrogen receptor positive (HCC) 02/04/2023 12:33 PM EDT COMPREHENSIVE METABOLIC PANEL Lab STAT Malignant neoplasm of overlapping sites of both breasts in female, estrogen receptor positive (HCC) 02/04/2023 12:33 PM EDT CBC Lab STAT Malignant neoplasm of overlapping sites of both breasts in female, estrogen receptor positive (HCC) 02/04/2023 12:33 PM EDT DIFFERENTIAL, AUTOMATED Lab STAT Malignant neoplasm of overlapping sites of both breasts in female, estrogen receptor positive (HCC) 02/04/2023 12:33 PM EDT Scheduled Procedures Name Priority Associated [...] Tdap) 11/03/2023 11/02/2013 CKD HGB USE SMARTSET 47870 12/02/202312/01, 12/01/2022, 08/30/2022, Additional history exists CKD PHOS USE SMARTSET 37942 12/02/2023 04/2 01/2023, 10/12/2021, 02/07/2020 Diabetes Screening 12/01/2025 12/01/2022, 0 08/30/2022, 06/07/2022, Additional history exists Pneumococcal Vaccine: Pediatrics (0 to 5 Years) and At-Risk Patients (6 to 64 Years) (3 - PPSV23 if available, else PCV20) 10/01/2026 10/01/2021, 05/26/2020 Lipid Panel 12/02/2027 12/01/2022, 0302/2022, 11/03/2020, Additional history exists Influenza Vaccine (FLU shot) Completed 05/2022, 10/01/2021, 10/01/2021, Additional history exists Zoster Vaccines Completed 01/06/2023, 10/28/2022 GARDASIL-HPV IMMUNIZATION SERIES Aged Out No longer eligible based on patient's age to complete this topic MENINGOCOCCAL (MENACTRA/MENVEO) Aged Out No longer eligible based on patient's age to complete this topic documented as of this encounter Medical Devices Implanted Type Area Patient Registration Supervisor Device Identifier Shelf Expiration Date Model / Serial / Lot Implant Hi Prof Gel 750cc - [id number] Implanted:Qty: 1 on 07/02/2013 [place] [facility] [place]: Breast i[employer] DARVIN 04/01/2014 [id number] / [id number] / [id number] documented as of this encounter Visit Diagnoses [...] Directives occurred with: Not Discussed Care Teams Barrel Loader And Cleaner Relationship Specialty Start Date End Date Susie White MD [address] [place] [address] PCP - General Internal Medicine 03/02/12 documented as of this encounter
--- OUTSIDE RECORDS SUMMARY | 2023-07-03 02:47 | External Medical Summary | Summary of Care ---
Author Name Unknown Organization [facility] Address [address] [place] [address] Phone [phone] Care Team Providers Care Tow Boat Captain Name Role Phone Susie White MD Primary Care Provider [phone] Reason for Visit * Reason Comments Outpatient Testing Encounter Details Date Type Department Care Team Description 02/04/2023 Laboratory Laboratory, [place] [address] [place] [address] [place], [facility] [address] [place] [address] Malignant neoplasm of overlapping sites [...] Project #: [id number] PI Name: Cory Infnate MD PI CRC Name: Molly Chowdhury [facility] Contact PI or POP SINGER regarding any serious medical event, if new [...] Infante MD PI CRC Name: Molly Chowdhury [facility] Contact PI or POP SINGER regarding any serious medical event, if new [...] Visit Hematology Oncology Cory Infante MD [address] [place] [address] 03/09/2023 Pharmacy Pharmacy [facility] [place] Hem/Onc [address] [place], [place] [phone] 05/09/2023 Hospital Encounter Endoscopy Raheem Hagen MD [address] [place] [address] 05/09/2023 Surgery Endoscopy Raheem Hagen MD [address] [place] [address] COLONOSCOPY FLEXIBLE PROXIMAL DIAGNOSTIC 05/26/2023 Office Visit Dermatology Donita Cornejo PA-C [address] [place] [address] [place] [phone] Pending Results Name Type Priority Associated Diagnoses [...] Tdap) 11/03/2023 11/02/2013 CKD HGB USE SMARTSET 03582 12/02/202312/01, 12/01/2022, 08/30/2022, Additional history exists CKD PHOS USE SMARTSET 24596 12/02/2023 04/2 01/2023, 10/12/2021, 02/07/2020 Diabetes Screening [...] this encounter Medical Devices Implanted Type Area Rapid Extractor Operator Device Identifier Shelf Expiration Date Model / Serial / Lot Implant Hi Prof Gel 750cc - [id number] Implanted:Qty: 1 on 07/02/2013 at [place] [facility] [place] Left: Breast Star.[employer] DARVIN 04/01/2014 [id number] / [id number] / [id number] documented as of this encounter Visit Diagnoses [...] Directives occurred with: Not Discussed Care Teams Tow Boat Captain Relationship Specialty Start Date End Date Susie White MD [address] [place] [address] PCP - General Internal Medicine 03/02/12 documented as of this encounter
--- OUTSIDE RECORDS SUMMARY | 2023-07-03 02:47 | External Medical Summary | Summary of Care ---
Author Name Unknown Organization [facility] Address [address] [place] [address] Phone [phone] Care Team Providers Care Arc Welder Name Role Phone Susie White MD Primary Care Provider [phone] Reason for Visit * Reason Comments Outpatient Testing Encounter Details Date Type Department Care Team Description 02/25/2023 Laboratory Laboratory [facility] [address] [place] [address] [facility] [address] [place] [address] Arrived Allergies No known active allergiesdocumented as of [...] [facility] Contact PI or SENIOR ADULTS DIRECTOR regarding any serious medical event, if new [...] [facility] Contact PI or SENIOR ADULTS DIRECTOR regarding any serious medical event, if new [...] Specialty Care Team Description 03/09/2023 Pharmacy Pharmacy [facility] [place] [facility] Hem/Onc [address] [place] [address] 05/09/2023 Hospital Encounter Endoscopy Raheem Hagen MD [address] [place] [address] 05/09/2023 Surgery Endoscopy Raheem Hagen MD [address] [place] [address] COLONOSCOPY FLEXIBLE PROXIMAL DIAGNOSTIC 05/26/2023 Office Visit Dermatology Donita Cornejo PA-C [address] [place] [address] [place] [address] 08/23/2023 Imaging Radiology 08/30/2023 Office Visit Hematology Oncology Cory Infante MD [address] [place] [address] Scheduled Procedures Name Priority Associated Diagnoses Date/Ti [...] Tdap) 11/03/2023 11/02/2013 CKD PHOS USE SMARTSET 48472 12/02/202311/07, 10/12/2021, 02/07/2020 CKD HGB USE SMARTSET 04329 02/05/202402/04, 02/04/2023, 12/01/2022, Additional history exists Diabetes [...] this encounter Medical Devices Implanted Type Area Game Room Attendant Device Identifier Shelf Expiration Date Model / Serial / Lot Implant Hi Prof Gel 750cc - [id number] Implanted:Qty: 1 on 07/02/2013 at [place] [facility] [place] Left: Breast MENTOR DARVIN 04/01/2014 [id number] / [id number] / [id number] documented as of this encounter Advance Directives [...] Directives occurred with: Not Discussed Care Teams Arc Welder Relationship Specialty Start Date End Date Susie White MD [address] [place] [address] PCP - General Internal Medicine 03/02/12 documented as of this encounter
--- OUTSIDE RECORDS SUMMARY | 2023-07-03 02:47 | External Medical Summary | Summary of Care ---
Author Name Unknown Organization [facility] Address [address] [place] [facility] [place] [address] Phone [phone] Care Team Providers Care Engraver Automatic Name Role Phone Susie White MD Primary Care Provider [phone] Reason for Visit * Reason Onset Date Comments Test Results Imaging Study 02/10/2023 CT Encounter Details Date Type Department Care Team Description 02/10/2023 Telephone Hematology/Oncology [facility] [address] [facility] [place] [address] Clarence Patel MD 200 [place] [address] Test Results Imaging Study (CT) Allergies No known active allergiesdocumented as of this encounter (statuses as of 02/10/2023) Medications Medication Sig Dispensed Refills Start Date [...] as of this encounter (statuses as of 02/10/2023) Active Problems Problem Noted Date Stage 3a [...] as of this encounter (statuses as of 02/10/2023) Resolved Problems Problem Noted Date Resolved Date [...] Infante MD PI CRC Name: Molly Chowdhury [facility] Contact PI or RESIDENT CARE MANAGER regarding any serious medical event, if [...] Infante MD PI CRC Name: Molly Chowdhury [facility] Contact PI or RESIDENT CARE MANAGER regarding any serious medical event, if new Rx given, ER visit, hospitalization, or billing question Diagnosis changed due to Research Module. Go to Snapshot for study details. 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 documented as of this encounter (statuses as of 02/10/2023) Immunizations Name Administration Dates Next Due COVID-19 [...] Telephone Encounter - Rose Ospina LPN - 02/10/2023 1:26 PM EDT Called patient to notify about CT scan. She denies any dysuria, polyuria, abdominal pain, vomiting,diarrhea, and no blood in stool or urine. Notified patient she should call our office if she starting experience any of these symptoms. Patient has office visit with Dr. Infante on 02/25/23. She verbalizes understanding. ----- Message from Clarence Patel MD sent at 02/10/2023 10:11 AM EDT ----- On CT No evidence of metastatic disease in the chest Small bowel small bowel intussusception in the left lower quadrant without small bowel obstruction.Although this may be transient, underlying lymph node, polyp, or mass as lead point cannot be excluded - can you call the patient make sure she does not have any symptoms. Also if there is any symptoms of dysuria, can we can get the UA and urine culture and sensitivity. documented in this encounter Plan of Treatment Upcoming Encounters Date Type Specialty Care Team Description 02/25/2023 Office Visit Hematology Oncology Cory Infante MD [address] [place] [address] 03/09/2023 Pharmacy Pharmacy [facility] [place] [facility] Hem[facility]Onc [address] [place] [address] 05/09/2023 Hospital Encounter Endoscopy Raheem Hagen MD [address] [place], [place] [address] 05/09/2023 Surgery Endoscopy Raheem Hagen MD [address] [place] [address] COLONOSCOPY FLEXIBLE PROXIMAL DIAGNOSTIC 05/26/2023 Office Visit Dermatology Donita Cornejo PA-C [address] [place] [address] [place] [address] Scheduled Procedures Name Priority Associated Diagnoses Date/Ti [...] 03/30/2022 02/02/2022, 05/11/2021, 10/04/2020, Additional history exists Influenza Vaccine (FLU shot) (#1) 2023 06/17/2022, 10/01/2021, 10/01/2021, Additional history exists GFR 08/06/2023 02/04/2023, 11/07, 08/30/2022, Additional history exists Albumin/Creatinine Ratio 10/29/2023 10/28/2022, 03/0 02/2022 Depression Screening, Annual for Pts 12 and Over 10/29/2023 10/28/2022 DTaP,Tdap,and Td Vaccines (2 - Td or Tdap) 11/03/2023 11/02/2013 CKD PHOS USE SMARTSET 70678 12/02/202311/07, 10/12/2021, 02/07/2020 CKD HGB USE SMARTSET 00292 02/05/202402/04, 02/04/2023, 12/01/2022, Additional history exists Diabetes Screening 02/04/2026 02/04/2023, 0 12/01/2022, 08/30/2022, Additional history exists Pneumococcal Vaccine: Pediatrics (0 to 5 Years) and At-Risk Patients (6 to 64 Years) (3 - PPSV23 if available, else PCV20) 10/01/2026 10/01/2021, 05/26/2020 Lipid Panel 12/02/2027 12/01/2022, 030 02/2022, 11/03/2020, Additional history exists Zoster Vaccines Completed 01/06/2023, 10/28/2022 GARDASIL-HPV IMMUNIZATION SERIES Aged Out No longer eligible based on patient's age to complete this topic MENINGOCOCCAL (MENACTRA/MENVEO) Aged Out No longer eligible based on patient's age to complete this topic documented as of this encounter Medical Devices Implanted Type Area Share Dairy Farmer Device Identifier Shelf Expiration Date Model / Serial / Lot Implant Hi Prof Gel 750cc - [id number] Implanted:Qty: 1 on 07[place] [facility] [place] Breast MENTOR DARVIN 04/01/2014 [id number] / [id number] / [id number] documented as of this encounter Advance Directives [...] Directives occurred with: Not Discussed Care Teams Engraver Automatic Relationship Specialty Start Date End Date Susie White MD [address] [place] [address], [place] [address] PCP - General Internal Medicine 03/02/12 documented as of this encounter
--- OUTSIDE RECORDS SUMMARY | 2023-07-03 02:47 | External Medical Summary | Summary of Care ---
Author Name Unknown Organization [facility] Address [address] [place] [address] Phone [phone] Care Team Providers Care Hostel Parent Name Role Phone Susie White MD Primary Care Provider [phone] Reason for Visit * Reason Onset Date Comments Test Results 02/10/2023 Unexpected or In determinate Result Encounter Details Date Type Department Care Team Description 02/10/2023 Telephone Hematology/Oncology [facility] Gisele Addison [address] [place] [address] Cory Infante MD [address] [place] [address] Test Results (Unexpected or Indeterminate ... Allergies No known active allergiesdocumented as of [...] [facility] Contact PI or INTERMODAL DISPATCHER regarding any serious medical event, if new [...] [facility] Contact PI or INTERMODAL DISPATCHER regarding any serious medical event, if new [...] Miscellaneous Notes * Telephone Encounter - LEN Goodrich - 02/10/2023 9:08 AM EDT Hello- The radiologist discovered an unexpected or indeterminate finding on Shante Cordoba ([id number]) andasks that you review the following report. Study Type: CT CHEST/ABDOMEN/PELVIS WITH IV CONTRAST WITH ORAL CONTRAST Date of Study: 02/09/2023 IMPRESSION 1. Trace free fluid in the pelvis, [...] correlation with urinalysis to evaluate for infection. Please respond to this encounter to acknowledge receipt of this message and take responsibility to ensure this report is reviewed. Thank you, LEN Goodrich Client Service Rep [facility] documented in this encounter Plan of Treatment Upcoming Encounters Date Type Specialty Care Team Description 02/25/2023 Office Visit Hematology Oncology Cory Infante MD [address] [place], [place] [address] [address] 03/09/2023 Pharmacy Pharmacy [facility] [place] Hem[facility]Onc [address] [place], [place] [address] 05/09/2023 Hospital Encounter Endoscopy Raheem Hagen MD [address] [place] [address] 05/09/2023 Surgery Endoscopy Raheem Hagen MD [address] [place] [address] COLONOSCOPY FLEXIBLE PROXIMAL DIAGNOSTIC 05/26/2023 Office Visit Dermatology Donita Cornejo PA-[address] [place] [address] Scheduled Procedures Name Priority Associated Diagnoses Date/Ti [...] Tdap) 11/03/2023 11/02/2013 CKD PHOS USE SMARTSET 46352 12/02/20232 01/2023, 10/12/2021, 02/07/2020 CKD HGB USE SMARTSET 88111 02/05/202402/04, 02/04/2023, 12/01/2022, Additional history exists Diabetes [...] this encounter Medical Devices Implanted Type Area Receptionist Secretary Device Identifier Shelf Expiration Date Model / Serial / Lot Implant Hi Prof Gel 750cc - [id number] Implanted:Qty: 1 on 07/02/2013 at OR [facility] [place] Left: Breast MENTOR DARVIN 04/01/2014 [id number] / [id number] / [id number] documented as of this encounter Advance Directives [...] Directives occurred with: Not Discussed Care Teams Hostel Parent Relationship Specialty Start Date End Date Susie White MD [address] [place] [address] PCP - General Internal Medicine 03/02/12 documented as of this encounter
--- OUTSIDE RECORDS SUMMARY | 2023-07-03 02:47 | External Medical Summary ---
Author Name Unknown Address Unknown Organization K01:[facility] [place] [address] [facility] [place] [address] Laboratory Report Ordering Provider Test Date Status RISA JENKINS 02/04/2023 12:33:09 Final Observation Date Value Abnormality Reference (Units ) Status SYNC LEUKOCYTES IN BLOOD BY AUTOMATED COUNT 02/04/2023 12:33:09 3.84 Below low normal 4.00-10.80 (K/uL) Final Segs 02/04/2023 12:33:09 49.2 40.0-75.0 (%) Final Lymphs % 02/04/2023 12:33:09 34.1 18.0-42.0 (%) Final Monos 02/04/2023 12:33:09 12.8 Above high normal 1.0-11.0 (%) Final Eosinophils 02/04/2023 12:33:09 1.8 0.0-6.0 (%) Final Basos 02/04/2023 12:33:09 1.6 0.0-2.0 (%) Final Immature Granulocyte, Percent 02/04/2023 12:33:09 0.5 0.0-2.0 (%) Final Absolute Segs 02/04/2023 12:33:09 1.89 1.80-7.70 (K/uL) Final Lymphs, absolute 02/04/2023 12:33:09 1.31 1.00-4.80 (K/ul) Final Monos, Abs 02/04/2023 12:33:09 0.49 0.00-1.10 (K/uL) Final Eos, Abs 02/04/2023 12:33:09 0.07 0.00-0.70 (K/uL) Final Basos, Abs 02/04/2023 12:33:09 0.06 0.00-0.20 (K/uL) Final Immature Granulocytes, Number 02/04/2023 12:33:09 0.02 0.00-0.20 (K/uL) Final Performing Location [facility] [place] [address] [facility] [address]
--- OUTSIDE RECORDS SUMMARY | 2023-07-03 02:47 | External Medical Summary | Summary of Care ---
Author Name Unknown Organization [facility] Address [address] [place] [address] Phone [phone] Care Team Providers Care Eap Clinician Name Role Phone Susie White MD Primary Care Provider [phone] Encounter Details Date Type Department Care Team Description 01/06/2023 Nurse Only Ancillary Department, [facility] [address] [place] [address] [place], Nurse [address] [place] [address] Arrived Allergies No known active allergiesdocumented as of this encounter (statuses as of 01/06/2023) Medications Medication Sig Dispensed Refills Start Date [...] as of this encounter (statuses as of 01/06/2023) Active Problems Problem Noted Date Stage 3a [...] as of this encounter (statuses as of 01/06/2023) Resolved Problems Problem Noted Date Resolved Date [...] Infante MD PI CRC Name: Molly Chowdhury [facility] Contact PI or MILL RECORDER regarding any serious medical event, if new [...] Infante MD PI CRC Name: Molly Chowdhury [facility] Contact PI or MILL RECORDER regarding any serious medical event, if new Rx given, ER visit, hospitalization, or billing question Diagnosis changed due to Research Module. Go to Snapshot for study details. 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 documented as of this encounter (statuses as of 01/06/2023) Immunizations Name Administration Dates Next Due COVID-19 [...] Encounters Date Type Specialty Care Team Description 01/17/2023 Pharmacy Pharmacy [facility] [place] Hem[facility]Onc [address] [place] [address] 02/09/2023 Imaging Radiology 02/24/2023 Laboratory Laboratory [facility] [address] [place] [address] 02/25/2023 Office Visit Hematology Oncology Cory Infante MD [address] [place] [address] 05/09/2023 Hospital Encounter Endoscopy Raheem Hagen MD [address] [place] [address] 05/09/2023 Surgery Endoscopy Raheem Hagen MD [address] [place] [address] COLONOSCOPY FLEXIBLE PROXIMAL DIAGNOSTIC 05/26/2023 Office Visit Dermatology Donita Cornejo PA-C [address] [place] [address] [place] [address] Scheduled Procedures Name Priority Associated Diagnoses Date/Ti [...] 03/30/2022 02/02/2022, 05/11/2021, 10/04/2020, Additional history exists Albumin/Creatinine Ratio 10/12/2022 10/12/2021 GFR 06/02/2023 12/01/2022, 08/09, 06/07/2022, Additional history exists Depression Screening, Annual for Pts 12 and Over 10/29/2023 10/28/2022 DTaP,Tdap,and Td Vaccines (2 - Td or Tdap) 11/03/2023 11/02/2013 CKD HGB USE SMARTSET 22881 12/02/202312/01, 12/01/2022, 08/30/2022, Additional history exists CKD PHOS USE SMARTSET 52096 12/02/20232 01/2023, 10/12/2021, 02/07/2020 Diabetes Screening 12/01/2025 12/01/2022, [...] this encounter Medical Devices Implanted Type Area Cellar Worker Device Identifier Shelf Expiration Date Model / Serial / Lot Implant Hi Prof Gel 750cc - [id number] Implanted:Qty: 1 on 07/02/2013 [place] [facility] [place]: Breast MENTOR DARVIN 04/01/2014 [id number] / [id number] / [id number] documented as of this encounter Advance Directives [...] Directives occurred with: Not Discussed Care Teams Eap Clinician Relationship Specialty Start Date End Date Susie White MD 200 [facility] [place] [address] PCP - General Internal Medicine 03/02/12 documented as of this encounter
--- OUTSIDE RECORDS SUMMARY | 2023-07-03 02:47 | External Medical Summary | Summary of Care ---
Author Name Unknown Organization [facility] Address [address] [place] [address] Phone [phone] Care Team Providers Care Hotel Or Motel Cleaning Supervisor Name Role Phone Susie White MD Primary Care Provider [phone] Reason for Visit * Reason Comments Medication Management Encounter Details Date Type Department Care Team Description 04/07/2023 Pharmacy Pharmacy Hematology Oncology [facility] [address] [place] [phone] [facility] [place]c [address] [place], [place] [phone] Malignant neoplasm of overlapping sites of both breasts in female, estrogen receptor positive (HCC)* Allergies No known active allergiesdocumented as of this encounter (statuses as of 04/06/2023) Medications Medication Sig Dispensed Refills Start Date [...] as of this encounter (statuses as of 04/06/2023) Active Problems Problem Noted Date Stage 3a [...] as of this encounter (statuses as of 04/06/2023) Resolved Problems Problem Noted Date Resolved Date [...] Infante MD PI CRC Name: Molly Chowdhury [facility] Contact PI or SOLAR LAB TECHNICIAN regarding any serious medical event, if [...] Infante MD PI CRC Name: Molly Chowdhury [facility] Contact PI or SOLAR LAB TECHNICIAN regarding any serious medical event, if new Rx given, ER visit, hospitalization, or billing question Diagnosis changed due to Research Module. Go to Snapshot for study details. 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 documented as of this encounter (statuses as of 04/06/2023) Immunizations Name Administration Dates Next Due COVID-19 [...] this encounter Progress Notes * Radha Toscano, [facility] - 04/06/2023 11:16 AM EDT MEDICATION THERAPY MANAGEMENT RIBOCICLIB (KISQALI) TREATMENT PROGRESS NOTE Shante "Radha" Beryl [id number] Patient Phone Numbers Communication: Left message requesting return call to assess toleration to therapy and Left messagerequesting pt to obtain lab work Current Treatment: Medication: Ribociclib (Kisqali) Indication: ER+/PA+/HER2- met breast cancer Dose: 400mg daily D1-21 every 28 days ( 01/11/20) Administration: +/- food Start Date: 11/28/2019 Primary Oncologist: Dr Yeimy Infante Supportive Care Meds: Letrozole Ondansetron Prochlorperazine Current cycle: 03/30 - 04/19 Next cycle: 04/27 - 05/17 (anticipated) Interval History: C1 stopped early due to diarrhea C2 stopped early due to grade 3 neutropenia Per previous discussion with Dr. Infante, lab monitoring extended to q3mo due to pt financial concern Changes to medication list since last visit? No Assessment and Plan: LM requesting call back to confirm treatment cycle dates, tolerability, and remind pt to obtain q3mo labs at end of Apr 2023 Assessment of compliance: compliant Assessment of adverse effects attributed to drug therapy: N/A Dose adjustment needed based on lab or adverse drug reaction? No Follow up: 1 month Radha Toscano, PharmD, BCOP Clinical Pharmacist, [facility] Oral Chemotherapy [facility] 04/06/2023, 11:21 AM Pertinent labs:n/a Suggested Labs: CBCd and LFTs baseline, q2w x 2 cycles, prior to each cycle x 4 cycles, then as clinically necessary; Monitor ECG (prior to treatment initiation; repeat on day 14 of cycle 1, at the beginning of cycle 2 Parameters to be met: ANC > 1000; QTc < 450 msec EKG Date QTc 10/23/19 390 ms Time Spent on Encounter: < 5 minutes documented in this encounter Plan of Treatment Upcoming Encounters Date Type Specialty Care Team Description 05/05/[address] [facility] [place] Hem[facility]Onc [address] [facility] [place] [address] 05/09/2023 Hospital Encounter Endoscopy Raheem Hagen MD [address] [place] [address] 05/09/2023 Surgery Endoscopy Raheem Hagen MD [address] [place] [address] COLONOSCOPY FLEXIBLE PROXIMAL DIAGNOSTIC 05/26/2023 Office Visit Dermatology Donita Cornejo PA-C [address] [place] [address] [place] [address] 08/23/2023 Imaging Radiology 08/30/2023 Office Visit Hematology Oncology Cory Infante MD [address] [facility] [place] [address] Scheduled Procedures Name Priority Associated Diagnoses Date/Ti [...] Tdap) 11/03/2023 11/02/2013 CKD PHOS USE SMARTSET 47290 12/02/202311/07, 10/12/2021, 02/07/2020 CKD HGB USE SMARTSET 85086 02/05/202402/04, 02/04/2023, 12/01/2022, Additional history exists Diabetes [...] this encounter Medical Devices Implanted Type Area Bed Spring Maker Device Identifier Shelf Expiration Date Model / Serial / Lot Implant Hi Prof Gel 750cc - [id number] Implanted:Qty: 1 on 07/02/2013 at [place] [facility] [place] Left: Breast MENTOR DARVIN 04/01/2014 [id number] / [id number] / [id number] documented as of this encounter Visit Diagnoses [...] Directives occurred with: Not Discussed Care Teams Hotel Or Motel Cleaning Supervisor Relationship Specialty Start Date End Date Susie White MD [address] [facility] [place] [address] PCP - General Internal Medicine 03/02/12 documented as of this encounter
[2023-07-03] MEDS ORDERED: MoRPHine SULFATE 4 MG/ML 1 ML CARP\\VIAL IV STA ×2 (02:52→05:19)
--- NOTE | 2023-07-03 02:56 | Emergency Department Note ---
History of Present Illness General Chief complaint: Abdominal Pain Stated complaint: ABD PAIN Time Seen by Provider: 07/03/23 02:44 History of Present Illness Maximum Pain Intensity: 9 This 52-year-old female with a history of recurrent bowel obstructions presents to the ER complaining of abdominal pain and nausea concerning she has another bowel obstruction. Patient denies chest pain, dyspnea fevers, flank pain, urinary symptoms. No other concerns per patient. Gallbladder has been surgically removed. Home Medications Medication Instructions Recorded Confirmed Type letrozole 2.5 mg tablet 2.5 mg PO DAILY 04/22/23 04/22/23 History ribociclib 400 mg/day (200 mg x 2) 400 mg PO UD 04/22/23 04/22/23 History tablets (Kisqali) trazodone 50 mg tablet 50 mg PO HS 04/22/23 04/22/23 History Allergies Allergy/AdvReac Type Severity Reaction Status Date / Time No Known Allergies Allergy Verified 10/10/19 10:37 Past Med/Surg History Medical History (Updated 07/03/23 @ 04:30 by Daija Logan PA-C) Sarcoidosis Breast cancer (03/21/12) "Self detected right breast mass Status post right breast ultrasound and core needle biopsy revealing invasive ductal carcinoma with extensive DCIS and invasive lobular carcinoma estrogen receptor positive, progesterone receptor positive, and HER-2/rashida negative Status post right mastectomy and axillary dissection with left prophylactic mastectomy Stage pT3 bN3 M0 Status post systemic chemotherapy with TAC Status post completion of radiation therapy 01/25/2013 received 5920 cGy Status post placement of permanent implants " Surgical History Hx laparoscopic cholecystectomy (10/02/19) Laparoscopic Cholecystectomy with Cholangiogram Dr. Vargas 10/02/19 History of D&C History of esophagogastroduodenoscopy (EGD) 11/2018 dx gastritis History of bronchoscopy History of oophorectomy History of bilateral mastectomy 04/21/2012 Right mastectomy with right axillary lymph node dissectiona nd left prophylactic mastectomy 04/21/12 Dr. Carbajal at [facility] Family History Father Alive and well Mother Alzheimer disease Denies family history of Heart disease Breast cancer Social History Smoking Status: Never smoker Do You Dip or Chew Tobacco: No; Hx Alcohol Use: Yes Alcohol type: beer, wine and hard liquor Hx Substance Use: No Preferred Language: Bangladeshi Communication Ability: Effective Director Social Welfare Required: No Beliefs That Will Affect Care: None marital status: Current Living Situation: Spouse Feels Safe at Home: Yes Assistive Devices: None Review of Systems A total of 10 systems reviewed and were otherwise negative Physical Exam Vital Signs Vital Signs - 24 hr 07/03/23 02:40 07/03/23 03:11 07/03/23 03:19 Temperature 36.6 C Temperature Source Temporal Artery Scan Pulse Rate 79 78 Respiratory Rate 18 Respiratory Effort / Characteristics Non-Labored Spontaneous Respiratory Depth Normal Blood Pressure 125/86 Blood Pressure Mean 99 Pulse Oximetry 100 100 Oxygen Delivery Method Room Air Room Air Sepsis Recent Fever Within 48 Hours No Sepsis New/Unexplained Change in Mental Status No Sepsis Action Taken by Nursing No Action Required VITALS: Vitals are noted on the nurse's note and reviewed by myself. Vital signs stable. GENERAL: Pleasant female ambulating without difficulties with present, in no acute distress, nondiaphoretic, well-developed well-nourished. SKIN: Capillary reflex less than 2 seconds. HEENT: Normocephalic. PERRLA. EOMI. Nares patent. Mucous membranes moist. Neck is supple without nuchal rigidity. HEART: Regular rate and rhythm LUNGS: Clear to auscultation bilaterally without wheezes, rales or rhonchi. No retractions or accessory muscle use. ABDOMEN: Positive bowel sounds x 4. Normal tympanic percussion. Soft, tender to palpation mid abdomen, without masses or organomegaly. Szymanski sign negative. No guarding or rebound tenderness. No CVA tenderness MUSCULOSKELETAL: No gross musculoskeletal defects. NEURO: Patient was alert and oriented to person place and time. No focal neurological deficits. Course Administered Medications Discontinued Medications Sodium Chloride (Nss) 1,000 mls @ 999 mls/hr IV .Q1H1M STA Stop: 07/03/23 03:45 Last Infusion: 07/03/23 04:09 Dose: Infused Documented By: Admin: 07/03/23 02:59 Dose: 999 mls/hr Documented By: ARIELA Famotidine (Pepcid 20mg Iv Push) 20 mg in 5 mls @ 2.5 mls/min IV NOW STA Stop: 07/03/23 02:46 Last Admin: 07/03/23 02:59 Dose: 2.5 mls/min Documented By: AN Ioversol (Optiray 320 500ml) 89 ml IV ONCE ONE Stop: 07/03/23 04:00 Last Admin: 07/03/23 04:00 Dose: 89 ml Documented By: PLW Morphine Sulfate (Morphine Sulfate 4 Mg/Ml 1 Ml Carp\\Vial) 4 mg IV NOW STA Stop: 07/03/23 02:53 Last Admin: 07/03/23 02:59 Dose: 4 mg Documented By: AN Ondansetron HCl (Ondansetron Inj 2 Mg/Ml 2 Ml Vial) 4 mg IV NOW STA Stop: 07/03/23 02:46 Last Admin: 07/03/23 02:59 Dose: 4 mg Documented By: AN Ondansetron HCl (Ondansetron Inj 2 Mg/Ml 2 Ml Vial) 4 mg IV NOW STA Stop: 07/03/23 02:53 Last Admin: 07/03/23 03:18 Dose: Not Given Documented By: AN Medical Decision Making Medical Records Attestation: I reviewed the patient's medical records. Home Medications Current Medication List: was personally reviewed by me Laboratory Data Attestation: I reviewed the patient's lab results. 07/03/23 03:00 07/03/23 03:00 Lab Results 07/03/23 Range/Units 03:00 WBC 5.38 (4.8-10.8) K/ul RBC 4.24 (4.20-5.40) M/uL Hgb 13.8 (12.0-16.0) g/dl Hct 39.6 (37.0-47.0) % MCV 93.4 (80.0-100.0) fL MCH 32.5 (25.0-34.0) pg MCHC 34.8 (32.0-36.0) g/dL RDW Std Deviation 46.7 H (36.4-46.3) fL RDW Coeff of Salvatore 13.7 (11.5-14.5) % Plt Count 250 (130-400) K/uL MPV 9.8 (9.4-12.4) fL Immature Gran % (Auto) 0.4 % Neut % (Auto) 74.5 % Lymph % (Auto) 15.1 % [place] % (Auto) 8.2 % Eos % (Auto) 0.7 % Baso % (Auto) 1.1 % Neut # (Auto) 4.01 (1.40-6.50) K/uL Lymph # (Auto) 0.81 L (1.20-3.40) K/uL [place] # (Auto) 0.44 (0.11-0.59) K/uL Eos # (Auto) 0.04 (0.00-0.50) K/uL Baso # (Auto) 0.06 (0.00-0.20) K/uL Immature Gran # (Auto) 0.02 (0.01-0.20) K/uL Sodium 141 (136-145) mmol/L Potassium 3.7 (3.5-5.1) mmol/L Chloride 105 (98-107) mmol/L Carbon Dioxide 28 (21-32) mmol/L Anion Gap 8 (3-11) BUN 17 (6-23) mg/dl Creatinine 1.22 H (0.6-1.2) mg/dl Est Cr Clr Drug Dosing 59.6 ml/min Est GFR ( Amer) 59.8 ml/min Est GFR (Non-Af Amer) 51.6 ml/min BUN/Creatinine Ratio 13.9 (10-20) Glucose 101 H (70-99(Fasting)) mg/dl Calcium 10.0 (8.6-10.3) mg/dl Total Bilirubin 0.6 (0.2-1.0) mg/dl AST 20 (13-39) U/L ALT 22 (7-52) U/L Alkaline Phosphatase 44 (34-104) U/L Total Protein 7.4 (6.0-8.3) gm/dl Albumin 4.6 (3.4-5.0) gm/dl Globulin 2.8 (2.5-4.0) gm/dl Albumin/Globulin Ratio 1.6 (0.9-2) Lipase 25 (11-82) U/L HCG, Qual Negative (Negative) Urine Color Yellow Urine Appearance Clear (Clear) Urine pH 7.5 (4.5-7.5) Ur Specific [place] 1.018 (1.000-1.030) Urine Protein Trace H (Negative) Urine Glucose (UA) Negative (Negative) Urine Ketones Negative (Negative) Urine Blood Negative (Negative) Urine Nitrite Negative (Negative) Urine Bilirubin Negative (Negative) Urine Urobilinogen Negative (Negative) Ur Leukocyte Esterase 2+ H (Negative) Urine WBC (Auto) 10-30 H (0-5) /hpf Urine RBC (Auto) 0-4 (0-4) /hpf U Hyaline Cast (Auto) 1-5 (0-5) /lpf U Epithel Cells (Auto) 10-20 H (0-5) /lpf Urine Bacteria (Auto) Negative (Negative) Imaging Data Attestation: I personally reviewed and interpreted this imaging study as follows: Radiologist's Impression: Abdomen/Pelvis CT 07/03/23 02:46 Exam(s): CT ABDOMEN + PELVIS With Contrast IV Amt: 89 ml opti 320 EXAM: CT Abdomen and Pelvis With Intravenous Contrast CLINICAL HISTORY: Pain. TECHNIQUE: Axial computed tomography images of the abdomen and pelvis with intravenous contrast. CTDI is 20.43 mGy and DLP is 986.52 mGy-cm. Automated exposure control was utilized for the study. A dose lowering technique was utilized adhering to the principles of ALARA. CONTRAST: Patient received 89 ml opti 320 of IV contrast COMPARISON: No relevant prior studies available. FINDINGS: Lung bases: Unremarkable. No mass. No consolidation. ABDOMEN: Liver: Unremarkable. No mass. Gallbladder and bile ducts: Cholecystectomy. No ductal dilation. Pancreas: Unremarkable. No mass. No ductal dilation. Spleen: Unremarkable. No splenomegaly. Adrenals: Unremarkable. No mass. Kidneys and ureters: Mild left hydronephrosis. The right kidney is remarkable, no hydronephrosis. Stomach and bowel: Small bowel obstruction with a transition point in the right lower quadrant. There is fecalization of the bowel just proximal to the transition point suggesting and acute on chronic obstruction. No mucosal thickening. PELVIS: Appendix: Normal appendix. Bladder: Unremarkable. No mass. Reproductive: Unremarkable as visualized. ABDOMEN and PELVIS: Intraperitoneal space: No small amount of free fluid in the abdomen and pelvis is nonspecific. No free air. Bones/joints: There are degenerative changes of the spine. No acute fracture. No dislocation. Soft tissues: Bilateral breast prosthesis are partially visualized. Vasculature: Unremarkable. No abdominal aortic aneurysm. Lymph nodes: Unremarkable. No enlarged lymph nodes. IMPRESSION: 1. Small bowel obstruction with a transition point in the right lower quadrant. There is fecalization of the bowel just proximal to the transition point suggesting an acute on chronic obstruction. 2. Mild left hydronephrosis. No visual is obstructing nephrolithiasis. 3. A small amount of free fluid in the abdomen and pelvis is nonspecific. Electronically signed by: Reena Curiel MD 07/03/23 04:28 AM MDM Narrative Prior records/ancillary studies reviewed. Triage Nursing notes reviewed. Additional history obtained from family. The patient's history was concerning for abdominal pain. Differential diagnosis: Etiologies such as appendicitis, diverticulitis, PUD, biliary pathology, UTI, pancreatitis, obstruction, mesenteric ischemia, aortic pathology, infections, inflammatory bowel disease, renal colic, as well as others were entertained. Physical examination findings: As above. ER treatment provided: An order was placed for continuous cardiac monitoring. The monitor shows a rate of 60-100 with a sinus rhythm per my Independent interpretation. IV fluids, morphine, Pepcid Zofran ordered On reassessment the patient felt better. Diagnostics interpreted by me: The labs Independently Interpreted by myself revealed No worrisome leukocytosis, urine concerning for contamination and sent for culture. Creatinine 1.22 Imaging studies: CT abdomen pelvis is concerning for recurrent small bowel obstruction per my independent interpretation. Report was reviewed as above. Consultation: A consultation was placed with the hospitalist. The case was discussed and diagnostics were reviewed. The patient was evaluated in the ER for further treatment. Exam and history seem consistent with recurrent small bowel obstruction. Patient was medicated as above. Medicine was consulted. Patient will be admitted to the medical service. Patient is agreeable. By the evaluation outlined above emergent etiologies such as appendicitis, diverticulitis, PUD, biliary pathology, UTI, pancreatitis, mesenteric ischemia, aortic pathology, infections, inflammatory bowel disease, renal colic, as well as others were deemed relatively unlikely. The pt informed about the findings as listed above. All questions were answered and pleased with the treatment. The chart was completed utilizing [employer] voice recognition software. Grammatical errors, random word insertions, pronoun errors, and incomplete sentences are an occassional consequence of this system due to software limitations, ambient noise, and hardware issues. Any formal questions or concerns about the content, text, or information contained within the body of this dictation should be directly addressed to the physician shampoo assistant for clarification. Impression & Plan SBO (small bowel obstruction) Discharge Plan Visit Data Chief Complaint: Abdominal Pain Stated Complaint: ABD PAIN ED Provider: Kathleen Moscoso ED Midlevel Provider: Daija Logan Discharge Problem: SBO (small bowel obstruction) Patient Disposition: Admitted As Inpatient Condition: Good Forms Stand Alone Forms: [facility] Prescriptions Prescriptions: No Action trazodone 50 mg tablet 50 mg PO HS letrozole 2.5 mg tablet 2.5 mg PO DAILY Kisqali 400 mg/day (200 mg x 2) tablet 400 mg PO UD Rx Instructions: 21 days on and 7 days off of a 28day cycle. Referrals Referrals: Suise White MD [Primary Care Provider] -
[2023-07-03 03:23] LABS: Appearance Urine Clear (Clear); Bacteria Urine Automated Negative (Negative); Bilirubin Urine Negative (Negative); Blood Urine Negative (Negative); Color Urine Yellow; Glucose Urine UA Negative (Negative); Ketones Urine Negative (Negative); Leukocyte Esterase Urine 2+ (Negative); Nitrite Urine Negative (Negative); RBC Urine Automated 0-4 /hpf (0-4); Specific Gravity Urine 1.018 (1.000-1.030); Urobilinogen Urine Negative (Negative); pH Urine 7.5 (4.5-7.5)
[2023-07-03 03:33] LABS: Basophils # (auto) 0.06 K/uL (0.00-0.20); Basophils % (auto) 1.1 %; Eosinophils # (auto) 0.04 K/uL (0.00-0.50); Eosinophils % (auto) 0.7 %; Hematocrit (blood only) 39.6 % (37.0-47.0); Hemoglobin 13.8 g/dl (12.0-16.0); Immature Granulocytes # (auto) 0.02 K/uL (0.01-0.20); Immature Granulocytes % (auto) 0.4 %; Lymphocytes # (auto) 0.81 K/uL (1.20-3.40); Lymphocytes % (auto) 15.1 %; Mean Corpuscular Hemoglobin 32.5 pg (25.0-34.0); Mean Corpuscular Hgb Conc 34.8 g/dL (32.0-36.0); Mean Corpuscular Volume 93.4 fL (80.0-100.0); Mean Platelet Volume 9.8 fL (9.4-12.4); Monocytes # (auto) 0.44 K/uL (0.11-0.59); Monocytes % (auto) 8.2 %; Neutrophils # (auto) 4.01 K/uL (1.40-6.50); Neutrophils % (auto) 74.5 %; Platelet Count 250 K/uL (130-400); RDW Coefficient of Variation 13.7 % (11.5-14.5); RDW Standard Deviation 46.7 fL (36.4-46.3); Red Blood Count 4.24 M/uL (4.20-5.40); White Blood Count 5.38 K/ul (4.8-10.8)
[2023-07-03 03:34] LABS: Protein Urine Trace (Negative)
[2023-07-03 03:37] LABS: Pregnancy Test, Serum Negative (Negative)
[2023-07-03 03:39] LABS: Albumin Globulin Ratio 1.6 (0.9-2); Albumin Level 4.6 gm/dl (3.4-5.0); BUN Creatinine Ratio 13.9 (10-20); Bilirubin,Total 0.6 mg/dl (0.2-1.0); Creatinine Clr Calc Pharmacy 59.6 ml/min; Est GFR (African American) 59.8 ml/min; Est GFR (Non-African American) 51.6 ml/min; Globulin 2.8 gm/dl (2.5-4.0); Potassium 3.7 mmol/L (3.5-5.1); Total Protein 7.4 gm/dl (6.0-8.3)
[2023-07-03] MEDS ORDERED: OPTIRAY 320 500ml IV ONE (03:59)
--- NOTE | 2023-07-03 04:28 | CT Scan Report ---
Exam(s): CT ABDOMEN + PELVIS With Contrast IV Amt: 89 ml opti 320 EXAM: CT Abdomen and Pelvis With Intravenous Contrast CLINICAL HISTORY: Pain. TECHNIQUE: Axial computed tomography images of the abdomen and pelvis with intravenous contrast. CTDI is 20.43 mGy and DLP is 986.52 mGy-cm. Automated exposure control was utilized for the study. A dose lowering technique was utilized adhering to the principles of ALARA. CONTRAST: Patient received 89 ml opti 320 of IV contrast COMPARISON: No relevant prior studies available. FINDINGS: Lung bases: Unremarkable. No mass. No consolidation. ABDOMEN: Liver: Unremarkable. No mass. Gallbladder and bile ducts: Cholecystectomy. No ductal dilation. Pancreas: Unremarkable. No mass. No ductal dilation. Spleen: Unremarkable. No splenomegaly. Adrenals: Unremarkable. No mass. Kidneys and ureters: Mild left hydronephrosis. The right kidney is remarkable, no hydronephrosis. Stomach and bowel: Small bowel obstruction with a transition point in the right lower quadrant. There is fecalization of the bowel just proximal to the transition point suggesting and acute on chronic obstruction. No mucosal thickening. PELVIS: Appendix: Normal appendix. Bladder: Unremarkable. No mass. Reproductive: Unremarkable as visualized. ABDOMEN and PELVIS: Intraperitoneal space: No small amount of free fluid in the abdomen and pelvis is nonspecific. No free air. Bones/joints: There are degenerative changes of the spine. No acute fracture. No dislocation. Soft tissues: Bilateral breast prosthesis are partially visualized. Vasculature: Unremarkable. No abdominal aortic aneurysm. Lymph nodes: Unremarkable. No enlarged lymph nodes. IMPRESSION: 1. Small bowel obstruction with a transition point in the right lower quadrant. There is fecalization of the bowel just proximal to the transition point suggesting an acute on chronic obstruction. 2. Mild left hydronephrosis. No visual is obstructing nephrolithiasis. 3. A small amount of free fluid in the abdomen and pelvis is nonspecific. Electronically signed by: Reena Curiel MD 07/03/23 04:28 AM
--- NOTE | 2023-07-03 04:56 | Surgery Consultation ---
Date of Consultation July 03, 2023 Assessment & Plan (1) SBO (small bowel obstruction): I discussed with the treating clinician emergency department. Patient is being admitted on the [facility] service. I suspect the patient's small bowel obstruction may be related to adhesions from prior surgeries or potentially progression of metastatic disease from patient breast cancer. We recommend proceeding as follows: Implement n.p.o. status provide IV fluid for hydration Provide antiemetics Provide analgesics As patient's abdomen is nondistended and she is not any emesis in approximate 3 hours feel we can hold on placing NG tube at this time. I did discuss with the patient that if she has worsening of her abdominal exam or if she has further nausea or vomiting consideration of placing NG tube will need to be entertained. Serial labs to be followed Additional recommendations were forthcoming based on her clinical course as unfolds Supervising Physician Co-Signing Physician Notes Patient seen and examined, labs and imaging reviewed, agree with above. 52-year-old female with metastatic breast cancer to her abdomen and history of prior abdominal surgery presented with recurrent small bowel obstruction. She was here in April and was treated nonoperatively which improved. Since then she has had confirmation that she has gastric implants that are positive for breast cancer. She also has some areas in her abdomen that are likely metastatic disease as well. She has not had any symptoms in between her 2 episodes of bowel obstruction. On exam she is afebrile stable vitals, her abdomen is soft, mildly tender to palpation with mild distention. CT scan personally viewed and interpreted agree with the assessment of a small bowel obstruction with a transition point, possibly some fecalization. It is difficult to ascertain whether this is from metastatic breast carcinoma versus adhesions from prior surgery. At this point we will continue to treat nonoperatively. If she does not improve in the next few days may need a contrasted study. Surgery will follow, call with questions or concerns History of Present Illness Reason for Consultation: Small bowel obstruction History of Present Illness 52-year-old female who presents to the emergency department secondary to nausea and vomiting along with abdominal pain. Patient was recently admitted to [facility] in April of this year secondary to a small bowel obstruction. It was felt at that time that her small bowel obstruction was related to progressive metastatic disease or potentially adhesions from prior surgeries. This condition was treated successfully in a conservative manner and should not require surgery. The patient notes that since discharge from this a for mentioned admission the patient was doing well at home. She notes her bowels have been moving without difficulty. She has been tolerating solid diet. She also reports that she underwent an upper endoscopy which was performed by Dr. Kelsey Triplett of [facility] gastroenterology. Patient was told that she had ulcerations in her stomach that were concerning for metastatic breast cancer. Concerning the patient's history of cancer the patient does have a history of breast cancer for which she was treated with chemotherapy as well as radiation in . Patient is now on oral targeted therapy. She follows with Dr. Nelson Infante of [facility] oncology. She notes that she is scheduled for a PET scan on 07/06/2023 at which time further decisions regarding treatment of her breast cancer will be made. Patient did present to the emergency department today as she developed some generalized abdominal pain and had multiple episodes of nausea and vomiting after her evening meal on 07/02/2023. Patient does not have any provocative factors to her pain and the pain does not radiate. She notes that the pain was improved somewhat with morphine that was administered in the emergency department. She does note that she had a bowel movement on 07/02/2023 but this was before her symptomatology began. Since her symptoms began she has not been passing any flatus. She has not had any emesis in approximate 3 hours. She does report prior abdominal surgeries in the form of a cholecystectomy. She is also had an oophorectomy which was performed secondary to the type of breast cancer she had. Since arrival to the emergency department the patient has had labs and imaging which independent reviewed. CBC revealed white blood cell count, hemoglobin, hematocrit, and platelet count were normal. Chemistry profile showed sodium, potassium, BUN were normal. Creatinine had a slight elevation at 1.2. There is no elevation of her LFTs or lipase. test was negative. Urinalysis did show 10-30 white blood cells per high-power field along with 2+ leukocyte Estrace. CT scan of the abdomen pelvis was performed which showed patient had a small bowel obstruction with transition point in the right lower quadrant. There is fecalization of the bowel proximal to the transition point which was suggestive of acute on chronic obstruction. At the time of my interview she was resting comfortably in bed and she was in no distress. Allergies Allergy/AdvReac Type Severity Reaction Status Date / Time No Known Allergies Allergy Verified 10/10/19 10:37 Home Medications Medication Instructions Recorded Confirmed Type letrozole 2.5 mg tablet 2.5 mg PO DAILY 07/03/23 07/03/23 History omeprazole 20 mg tablet,delayed 20 mg PO BID 07/03/23 07/03/23 History release ribociclib 400 mg/day (200 mg x 2) 400 mg PO DAILY 07/03/23 07/03/23 History tablets (Kisqali) trazodone 50 mg tablet 50 mg PO HS 07/03/23 07/03/23 History Patient History Medical History Sarcoidosis Breast cancer (03/21/12) "Self detected right breast mass Status post right breast ultrasound and core needle biopsy revealing invasive ductal carcinoma with extensive DCIS and invasive lobular carcinoma estrogen receptor positive, progesterone receptor positive, and HER-2/rashida negative Status post right mastectomy and axillary dissection with left prophylactic mastectomy Stage pT3 bN3 M0 Status post systemic chemotherapy with TAC Status post completion of radiation therapy 01/25/2013 received 5920 cGy Status post placement of permanent implants " Surgical History Hx laparoscopic cholecystectomy (10/02/19) Laparoscopic Cholecystectomy with Cholangiogram Dr. Vargas 10/02/19 History of D&C History of esophagogastroduodenoscopy (EGD) 11/2018 dx gastritis History of bronchoscopy History of oophorectomy History of bilateral mastectomy 04/21/2012 Right mastectomy with right axillary lymph node dissectiona nd left prophylactic mastectomy 04/21/12 Dr. Carbajal at [facility] Family History Father Alive and well Mother Alzheimer disease Denies family history of Heart disease Breast cancer Social History Smoking Status: Never smoker Do You Dip or Chew Tobacco: No; Hx Alcohol Use: Yes Alcohol type: beer, wine and hard liquor Hx Substance Use: No Preferred Language: Setswana Communication Ability: Effective Cfo Controller Required: No Beliefs That Will Affect Care: None marital status: Current Living Situation: Spouse Feels Safe at Home: Yes Assistive Devices: None Review of Systems Constitutional: no fever and no chills Eyes: + corrective lenses Ear, Nose, Mouth, Throat: no hearing loss Respiratory: no cough and no dyspnea Cardiovascular: no chest pain Gastrointestinal: as per Subjective / HPI Genitourinary: no dysuria Musculoskeletal: no back pain Integumentary: no rash Neurologic: no localized weakness Physical Exam Constitutional: WD/WN, vitals as above Eyes: no conjunctival abnormality Wears glasses ENMT: Ears: no hearing impairment and no external ear abnormality Mouth: no oropharynx abnormality Neck: trachea midline Respiratory: normal respiratory effort; no respiratory distress and no labored breathing Cardiovascular: Rate/Rhythm: regular rate and regular rhythm Gastrointestinal (Abdomen): Abdomen is soft and nondistended. There is no rigidity. There is minimal pain noted with palpation at the time my exam there is no rebound tenderness or guarding Musculoskeletal: No calf tenderness Skin: no rashes Neurologic: moves all extremities Psychiatric: A+Ox3, euthymic affect Results & Data Vital Signs (Past 12 Hours) Vital Signs Temp Pulse Resp BP Pulse Ox O2 Del Method 07/03/23 03:19 78 07/03/23 03:11 100 Room Air 07/03/23 02:40 36.6 C 79 18 125/86 100 Room Air PG Care Time/CCT Total # of Minutes Spent Total Time Spent with Patient: Total time spent is greater than 50% in coordination of care (as documented) at patient's floor/unit and/or counseling patient: Coding Level of Care Code 88120 IN/OBS CONSULT LVL 5,80M Diagnoses SBO (small bowel obstruction) K56.609
[2023-07-03] MEDS ORDERED: ACETAMINOPHEN 1,000 MG/100 ML VIAL IV STA (05:19)
--- NOTE | 2023-07-03 08:27 | History & Physical Report ---
Date of Service July 03, 2023 Assessment & Plan (1) SBO (small bowel obstruction): Plan: This is a 52 yr old F who has significant PMH of hyperlipidemia, metastatic breast Cancer , CKD stage III and sarcoidosis presents with abdominal pain and found to have small bowel obstruction. Small bowel obstruction Conservative management N.p.o., IV fluids, IV pain meds as needed, IV antiemetics as needed If symptoms worsen will place an NG tube Surgery consulted History of metastatic breast cancer Continue current meds Patient had a EGD which showed gastric ulcers and pathology was consistent with breast primary Follow-up with heme-onc CKD stage III Presented with creatinine 1.2 which seems to be around baseline Follow labs DVT prophylaxis Lovenox Disposition Med/surg Full code Admission and Anticipated Discharge Date Admission Date: July 03, 2023 History of Present Illness Chief Complaint: This is a 52 yr old F who has significant PMH of hyperlipidemia, metastatic breast Cancer , CKD stage III and sarcoidosis presents with abdominal pain and found to have small bowel obstruction. Patient states pain started after dinner last evening associated with nausea and vomiting. Denies any fevers. No chest pain or shortness of breath. No cough. No headaches. Normal bladder movements. Had a normal bowel movement yesterday morning. Currently resting comfortable hemodynamic stable Past medical history. As mentioned above Past surgical history. Periprosthetic capsulectomy of the breast, breast reconstruction, bronchoscopy, colonoscopy, dilatation curettage, EGD, EGD with endoscopic ultrasound, ERCP, exploratory laparotomy, laparoscopic cholecystectomy, laparoscopic oophorectomy, right mastectomy with right axillary lymph node dissection and prophylactic mastectomy, left ankle surgery, total abdominal hysterectomy with removal of tubes salpingo-oophorectomy. Social history. . No smoking. Alcohol occasional. No drug use. Family history. Mother had Alzheimer's disease and hypertension. Maternal grandmother had skin cancer. Sister had cancer. Aunt has colon cancer. Primary Care Provider: Susie White MD Allergies Allergy/AdvReac Type Severity Reaction Status Date / Time No Known Allergies Allergy Verified 10/10/19 10:37 Home Medications Medication Instructions Recorded Confirmed Type letrozole 2.5 mg tablet 2.5 mg PO DAILY 07/03/23 07/03/23 History ribociclib 400 mg/day (200 mg x 2) 400 mg PO DAILY 07/03/23 07/03/23 History tablets (Kisqali) trazodone 50 mg tablet 50 mg PO HS 07/03/23 07/03/23 History Past Med/Surg History Medical History Sarcoidosis Breast cancer (03/21/12) "Self detected right breast mass Status post right breast ultrasound and core needle biopsy revealing invasive ductal carcinoma with extensive DCIS and invasive lobular carcinoma estrogen receptor positive, progesterone receptor positive, and HER-2/rashida negative Status post right mastectomy and axillary dissection with left prophylactic mastectomy Stage pT3 bN3 M0 Status post systemic chemotherapy with TAC Status post completion of radiation therapy 01/25/2013 received 5920 cGy Status post placement of permanent implants " Surgical History Hx laparoscopic cholecystectomy (10/02/19) Laparoscopic Cholecystectomy with Cholangiogram Dr. Vargas 10/02/19 History of D&C History of esophagogastroduodenoscopy (EGD) 11/2018 dx gastritis History of bronchoscopy History of oophorectomy History of bilateral mastectomy 04/21/2012 Right mastectomy with right axillary lymph node dissectiona nd left prophylactic mastectomy 04/21/12 Dr. Carbajal at [facility] Family History Father Alive and well Mother Alzheimer disease Denies family history of Heart disease Breast cancer Social History Smoking Status: Never smoker Do You Dip or Chew Tobacco: No; Hx Alcohol Use: Yes Alcohol type: beer, wine and hard liquor Hx Substance Use: No Preferred Language: Mauritanian Communication Ability: Effective Steward/Stewardess Deck Required: No Beliefs That Will Affect Care: None marital status: Current Living Situation: Spouse Feels Safe at Home: Yes Assistive Devices: None Review of Systems Review of Systems: All systems reviewed & are unremarkable except as noted in HPI & below Physical Exam Physical Exam: General- Not in distress Head- atraumatic Eyes- PERRL. ENT- oropharynx clear Neck- supple, no JVD. Lungs- clear to auscultation , no wheezing or crackles. Heart- regular rhythm; no murmur, no gallop. Abdomen-sluggish bowel sounds, soft, mild tenderness, no distension. Extremities- no pretibial edema, no erythema seen. Neuro- alert, oriented x 3; PERRL, no facial palsy; no dysarthria; moves extremities.Would have ac Skin- warm & dry Results & Data Results & Data Vital Signs (Past 12 Hours) Vital Signs Temp Pulse Pulse Resp BP BP Pulse Ox 07/03/23 07:00 72 21 95 07/03/23 07:00 127/73 07/03/23 06:50 60 21 95 07/03/23 06:40 59 L 18 94 07/03/23 06:30 124/71 07/03/23 06:30 63 21 95 07/03/23 06:30 62 21 124/71 95 07/03/23 06:20 66 20 95 07/03/23 06:10 63 23 95 07/03/23 06:00 131/72 07/03/23 06:00 66 22 95 07/03/23 06:00 66 21 131/72 95 07/03/23 05:50 69 21 96 07/03/23 05:40 65 23 95 07/03/23 05:30 76 15 99 07/03/23 05:30 164/96 H 07/03/23 05:20 87 21 99 07/03/23 05:10 69 17 97 07/03/23 05:00 68 25 H 96 07/03/23 05:00 140/91 07/03/23 04:50 74 25 H 97 07/03/23 04:40 82 26 H 100 07/03/23 04:30 139/77 07/03/23 04:30 73 23 99 07/03/23 04:30 73 20 139/77 98 07/03/23 04:20 71 24 97 07/03/23 04:10 79 24 98 07/03/23 04:05 137/93 07/03/23 04:05 85 25 H 94 07/03/23 04:05 83 21 137/93 95 07/03/23 03:50 70 24 98 07/03/23 03:40 71 23 98 07/03/23 03:30 70 23 97 07/03/23 03:30 134/94 07/03/23 03:30 69 23 131/94 97 07/03/23 03:20 72 21 98 07/03/23 03:19 78 07/03/23 03:17 76 20 98 07/03/23 03:11 100 07/03/23 03:08 80 20 117/93 96 07/03/23 02:40 36.6 C 79 18 125/86 100 O2 Del Method 07/03/23 07:00 07/03/23 07:00 07/03/23 06:50 07/03/23 06:40 07/03/23 06:30 07/03/23 06:30 07/03/23 06:30 Room Air 07/03/23 06:20 07/03/23 06:10 07/03/23 06:00 07/03/23 06:00 07/03/23 06:00 Room Air 07/03/23 05:50 07/03/23 05:40 07/03/23 05:30 07/03/23 05:30 07/03/23 05:20 07/03/23 05:10 07/03/23 05:00 07/03/23 05:00 07/03/23 04:50 07/03/23 04:40 07/03/23 04:30 07/03/23 04:30 07/03/23 04:30 Room Air 07/03/23 04:20 07/03/23 04:10 07/03/23 04:05 07/03/23 04:05 07/03/23 04:05 Room Air 07/03/23 03:50 07/03/23 03:40 07/03/23 03:30 07/03/23 03:30 07/03/23 03:30 Room Air 07/03/23 03:20 07/03/23 03:19 07/03/23 03:17 07/03/23 03:11 Room Air 07/03/23 03:08 Room Air 07/03/23 02:40 Room Air Diagnostic Findings Laboratory Results WBC 5.38 K/ul (4.8-10.8) 07/03/23 03:00 RBC 4.24 M/uL (4.20-5.40) 07/03/23 03:00 Hgb 13.8 g/dl (12.0-16.0) 07/03/23 03:00 Hct 39.6 % (37.0-47.0) 07/03/23 03:00 MCV 93.4 fL (80.0-100.0) 07/03/23 03:00 MCH 32.5 pg (25.0-34.0) 07/03/23 03:00 MCHC 34.8 g/dL (32.0-36.0) 07/03/23 03:00 RDW Std Deviation 46.7 fL (36.4-46.3) H 07/03/23 03:00 RDW Coeff of Salvatore 13.7 % (11.5-14.5) 07/03/23 03:00 Plt Count 250 K/uL (130-400) 07/03/23 03:00 MPV 9.8 fL (9.4-12.4) 07/03/23 03:00 Immature Gran % (Auto) 0.4 % 07/03/23 03:00 Neut % (Auto) 74.5 % 07/03/23 03:00 Lymph % (Auto) 15.1 % 07/03/23 03:00 [place] % (Auto) 8.2 % 07/03/23 03:00 Eos % (Auto) 0.7 % 07/03/23 03:00 Baso % (Auto) 1.1 % 07/03/23 03:00 Neut # (Auto) 4.01 K/uL (1.40-6.50) 07/03/23 03:00 Lymph # (Auto) 0.81 K/uL (1.20-3.40) L 07/03/23 03:00 [place] # (Auto) 0.44 K/uL (0.11-0.59) 07/03/23 03:00 Eos # (Auto) 0.04 K/uL (0.00-0.50) 07/03/23 03:00 Baso # (Auto) 0.06 K/uL (0.00-0.20) 07/03/23 03:00 Immature Gran # (Auto) 0.02 K/uL (0.01-0.20) 07/03/23 03:00 Sodium 141 mmol/L (136-145) 07/03/23 03:00 Potassium 3.7 mmol/L (3.5-5.1) 07/03/23 03:00 Chloride 105 mmol/L (98-107) 07/03/23 03:00 Carbon Dioxide 28 mmol/L (21-32) 07/03/23 03:00 Anion Gap 8 (3-11) 07/03/23 03:00 BUN 17 mg/dl (6-23) 07/03/23 03:00 Creatinine 1.22 mg/dl (0.6-1.2) H 07/03/23 03:00 Est Cr Clr Drug Dosing 59.6 ml/min 07/03/23 03:00 Est GFR ( Amer) 59.8 ml/min 07/03/23 03:00 Est GFR (Non-Af Amer) 51.6 ml/min 07/03/23 03:00 BUN/Creatinine Ratio 13.9 (10-20) 07/03/23 03:00 Glucose 101 mg/dl (70-99(Fasting)) H 07/03/23 03:00 Calcium 10.0 mg/dl (8.6-10.3) 07/03/23 03:00 Total Bilirubin 0.6 mg/dl (0.2-1.0) 07/03/23 03:00 AST 20 U/L (13-39) 07/03/23 03:00 ALT 22 U/L (7-52) 07/03/23 03:00 Alkaline Phosphatase 44 U/L (34-104) 07/03/23 03:00 Total Protein 7.4 gm/dl (6.0-8.3) 07/03/23 03:00 Albumin 4.6 gm/dl (3.4-5.0) 07/03/23 03:00 Globulin 2.8 gm/dl (2.5-4.0) 07/03/23 03:00 Albumin/Globulin Ratio 1.6 (0.9-2) 07/03/23 03:00 Lipase 25 U/L (11-82) 07/03/23 03:00 HCG, Qual Negative (Negative) 07/03/23 03:00 Urine Color Yellow 07/03/23 03:00 Urine Appearance Clear (Clear) 07/03/23 03:00 Urine pH 7.5 (4.5-7.5) 07/03/23 03:00 Ur Specific [place] 1.018 (1.000-1.030) 07/03/23 03:00 Urine Protein Trace (Negative) H 07/03/23 03:00 Urine Glucose (UA) Negative (Negative) 07/03/23 03:00 Urine Ketones Negative (Negative) 07/03/23 03:00 Urine Blood Negative (Negative) 07/03/23 03:00 Urine Nitrite Negative (Negative) 07/03/23 03:00 Urine Bilirubin Negative (Negative) 07/03/23 03:00 Urine Urobilinogen Negative (Negative) 07/03/23 03:00 Ur Leukocyte Esterase 2+ (Negative) H 07/03/23 03:00 Urine WBC (Auto) 10-30 /hpf (0-5) H 07/03/23 03:00 Urine RBC (Auto) 0-4 /hpf (0-4) 07/03/23 03:00 U Hyaline Cast (Auto) 1-5 /lpf (0-5) 07/03/23 03:00 U Epithel Cells (Auto) 10-20 /lpf (0-5) H 07/03/23 03:00 Urine Bacteria (Auto) Negative (Negative) 07/03/23 03:00 Impressions Abdomen/Pelvis CT 07/03/23 02:46 Exam(s): CT ABDOMEN + PELVIS With Contrast IV Amt: 89 ml opti 320 EXAM: CT Abdomen and Pelvis With Intravenous Contrast CLINICAL HISTORY: Pain. TECHNIQUE: Axial computed tomography images of the abdomen and pelvis with intravenous contrast. CTDI is 20.43 mGy and DLP is 986.52 mGy-cm. Automated exposure control was utilized for the study. A dose lowering technique was utilized adhering to the principles of ALARA. CONTRAST: Patient received 89 ml opti 320 of IV contrast COMPARISON: No relevant prior studies available. FINDINGS: Lung bases: Unremarkable. No mass. No consolidation. ABDOMEN: Liver: Unremarkable. No mass. Gallbladder and bile ducts: Cholecystectomy. No ductal dilation. Pancreas: Unremarkable. No mass. No ductal dilation. Spleen: Unremarkable. No splenomegaly. Adrenals: Unremarkable. No mass. Kidneys and ureters: Mild left hydronephrosis. The right kidney is remarkable, no hydronephrosis. Stomach and bowel: Small bowel obstruction with a transition point in the right lower quadrant. There is fecalization of the bowel just proximal to the transition point suggesting and acute on chronic obstruction. No mucosal thickening. PELVIS: Appendix: Normal appendix. Bladder: Unremarkable. No mass. Reproductive: Unremarkable as visualized. ABDOMEN and PELVIS: Intraperitoneal space: No small amount of free fluid in the abdomen and pelvis is nonspecific. No free air. Bones/joints: There are degenerative changes of the spine. No acute fracture. No dislocation. Soft tissues: Bilateral breast prosthesis are partially visualized. Vasculature: Unremarkable. No abdominal aortic aneurysm. Lymph nodes: Unremarkable. No enlarged lymph nodes. IMPRESSION: 1. Small bowel obstruction with a transition point in the right lower quadrant. There is fecalization of the bowel just proximal to the transition point suggesting an acute on chronic obstruction. 2. Mild left hydronephrosis. No visual is obstructing nephrolithiasis. 3. A small amount of free fluid in the abdomen and pelvis is nonspecific. Electronically signed by: Reena Curiel MD 07/03/23 04:28 AM Code Status & VTE Plan VTE Prophylaxis Plan VTE Prophylaxis will be ordered: Yes
[2023-07-03] MEDS: HYDROmorphone INJ 0.5 MG/0.5 ML SYR IV PRN ×4 (08:37→22:51)
[2023-07-03] MEDS: D5W AND 1/2NSS 1,000 ML IV SCH ×2 (09:44→16:39)
[2023-07-03] MEDS: ONDANSETRON INJ 2 MG/ML 2 ML VIAL IV PRN ×2 (09:48→16:30)
[2023-07-03] MEDS: ENOXAPARIN INJ 40 MG/0.4 ML SYR SQ SCH (09:50)
--- NOTE | 2023-07-03 17:00 | Communication Note ---
Date of Service: July 03, 2023 Evaluated at bedside. Feels stable at this time. Pain present, mostly discomfort, no flatus/BM, but denies any nausea. Continue NPO, fluids, pain control, and ambulation.
[2023-07-03] MEDS: ACETAMINOPHEN 325 MG TAB PO PRN ×2 (17:36→21:36)
[2023-07-04] MEDS: D5W AND 1/2NSS 1,000 ML IV SCH ×3 (00:05→15:12)
[2023-07-04 06:14] LABS: Calcium 8.4 mg/dl (8.6-10.3); Magnesium 1.9 mg/dl (1.7-2.4); Potassium 3.8 mmol/L (3.5-5.1)
[2023-07-04 06:20] LABS: BUN Creatinine Ratio 11.8 (10-20); Creatinine Clr Calc Pharmacy 78.1 ml/min; Est GFR (African American) 83.1 ml/min; Est GFR (Non-African American) 71.7 ml/min
[2023-07-04] MEDS: ENOXAPARIN INJ 40 MG/0.4 ML SYR SQ SCH (07:48)
--- NOTE | 2023-07-04 07:49 | Surgery Progress Note ---
Date of Service July 04, 2023 Assessment & Plan (1) SBO (small bowel obstruction): Plan: Pt reports she is feeling well Denies N/V, CP ,SOB, Chills, Fever, BM Passing flatus Continue ambulation IV fluids for hydration, tolerating sips/chips VSS CBC pending Admission and Anticipated Discharge Date Admission Date: July 03, 2023 Supervising Physician Co-Signing Physician Notes Patient seen and examined, agree with above. Metastatic breast cancer admitted with partial small bowel obstruction. She is feeling much better today has passed flatus. She would like to try clear liquids. Abdomen is soft, nontender, nondistended. Will advance to clear liquids, potential discharge after advancing low fiber diet later today or tomorrow. She should be able to proceed with her PET scan later this week Subjective Pt reports she is feeling well Denies N/V, CP ,SOB, Chills, Fever, BM Passing flatus Review of Systems Constitutional: no fever and no chills Respiratory: no dyspnea Cardiovascular: no chest pain Gastrointestinal: + bloating (feels full); no abdominal pa in, no nausea and no vomiting Genitourinary: no problem reported Musculoskeletal: no muscle weakness Integumentary: no problem reported Physical Exam Physical Exam: alert oriented plesant Constitutional: cooperative and comfortable; no acute distress Respiratory: normal respiratory effort and able to speak in complete sentences; no respiratory distress Cardiovascular: Rate/Rhythm: regular rate Gastrointestinal (Abdomen): Inspection/Auscultation: abdomen not distended Percussion/Palpation: abdomen soft; abdomen nontender and no guarding Results & Data Vital Signs (Past 12 Hours) Vital Signs Temp Pulse Resp BP Pulse Ox O2 Del Method 07/04/23 07:13 97.5 F L 64 18 124/77 99 Room Air 07/03/23 20:54 97.9 F 61 18 128/79 98 Room Air PG Care Time/CCT Total # of Minutes Spent Total Time Spent with Patient: Total time spent is greater than 50% in coordination of care (as documented) at patient's floor/unit and/or counseling patient: Coding Level of Care Code 90572 SUB INP/OBS CARE 25MIN Diagnoses SBO (small bowel obstruction) K56.609
[2023-07-04 07:54] LABS: Basophils # (auto) 0.03 K/uL (0.00-0.20); Basophils % (auto) 0.8 %; Eosinophils # (auto) 0.11 K/uL (0.00-0.50); Hematocrit (blood only) 33.8 % (37.0-47.0); Hemoglobin 11.7 g/dl (12.0-16.0); Immature Granulocytes # (auto) 0.01 K/uL (0.01-0.20); Immature Granulocytes % (auto) 0.3 %; Lymphocytes # (auto) 1.03 K/uL (1.20-3.40); Mean Corpuscular Hemoglobin 33.2 pg (25.0-34.0); Mean Corpuscular Hgb Conc 34.6 g/dL (32.0-36.0); Mean Platelet Volume 10.2 fL (9.4-12.4); Monocytes # (auto) 0.42 K/uL (0.11-0.59); Monocytes % (auto) 11.4 %; Neutrophils # (auto) 2.08 K/uL (1.40-6.50); Neutrophils % (auto) 56.5 %; Platelet Count 179 K/uL (130-400); RDW Coefficient of Variation 14.4 % (11.5-14.5); RDW Standard Deviation 50.2 fL (36.4-46.3); Red Blood Count 3.52 M/uL (4.20-5.40); White Blood Count 3.68 K/ul (4.8-10.8)
[2023-07-04] MEDS: ONDANSETRON INJ 2 MG/ML 2 ML VIAL IV PRN (14:29)
--- NOTE | 2023-07-04 17:03 | Hospitalist Progress Note ---
Date of Service July 04, 2023 Assessment & Plan (1) SBO (small bowel obstruction): (2) Breast cancer: Plan Mr. Shante Cordoba is 52 year old woman with history of right breast carcinoma multifocal infiltrating ductal carcinoma as well as lobular carcinoma S/P bilateral mastectomies followed by reconstruction (04/21/2012) with chronic RUE lymphedema with metastatic peripancreatic node now on ribociclib and letrozole, sarcoidosis, who was admitted on 07/03 due to acute SBO. Patient started on conservative management and appears to be doing much better with bowel rest and fluids. Currently, plan remains to continue conservative management at this time. Patient tolerated clears, will escalate to full liquid. NO BM +flatus. #Acute SBO CT scan:Small bowel obstruction with a transition point in the right lower quadrant. There is fecalization of the bowel just proximal to the transition point suggesting an acute on chronic obstruction. -Appreciate Surgery continued recommendations -Advance diet as tolerated #Metastatic breast cancer s/p mastectomy and chemo -follows with heme/onco -Heme/onc evaluating/planning next treatment course given recurrance noted in stomach during EGD, PET scan later this week #Left hydronephrosis with urothelial enhancement in the left renal pelvis #CKD stage III Trend Cr 02/2023 imaging with Urothelial enhancement in the left renal pelvis present in EPIC review, now seems to have progressed Asymptomatic, UA to culture (+epi cells), no active symptoms -Improved since prior imaging #Sarcoidosis Currently not under treatment DVT px Lovenox Disposition Med/surg Full code Admission and Anticipated Discharge Date Admission Date: July 03, 2023 Subjective NAEO Reports feeling much better and eager to transiton to PO intake +flatus, no bm Review of Systems Review of Systems: All systems reviewed & are unremarkable except as noted in Subjective Physical Exam Constitutional: WD/WN, vitals as above sitting in bedside chair Respiratory: normal respiratory effort, lungs clear to auscultation Cardiovascular: RRR, no murmur, no edema Gastrointestinal (Abdomen): normal bowel sounds, soft, nontender, no hepatosplenomegaly Results & Data Results & Data Vital Signs (Past 12 Hours) Vital Signs Temp Pulse Resp BP Pulse Ox O2 Del Method 07/04/23 16:00 36.8 C 59 L 16 123/80 100 Room Air 07/04/23 07:52 Room Air 07/04/23 07:13 36.4 C L 64 18 124/77 99 Room Air Laboratory Results Short CBC 07/04/23 Range/Units 05:43 WBC 3.68 L (4.8-10.8) K/ul Hgb 11.7 L (12.0-16.0) g/dl Hct 33.8 L (37.0-47.0) % Plt Count 179 (130-400) K/uL BMP 07/04/23 05:43 Sodium 138 Potassium 3.8 Chloride 111 H Carbon Dioxide 24 BUN 11 Creatinine 0.93 Glucose 104 H Calcium 8.4 L Medications Administered Home Medications Medication Instructions Recorded Confirmed Last Taken letrozole 2.5 mg tablet 2.5 mg PO DAILY 07/03/23 07/03/23 07/02/23 09:00 omeprazole 20 mg tablet,delayed 20 mg PO BID 07/03/23 07/03/23 07/01/23 16:00 release ribociclib 400 mg/day (200 mg x 2) 400 mg PO DAILY 07/03/23 07/03/23 07/02/23 09:00 tablets (Kisqali) trazodone 50 mg tablet 50 mg PO HS 07/03/23 07/03/23 07/02/23 22:00 Active Medications Generic Name Dose Route Start Last Admin Trade Name Aidee PRN Reason Stop Dose Admin Acetaminophen 650 mg 07/03/23 08:21 07/03/23 21:36 Acetaminophen 325 Mg Tab PO 08/02/23 08:20 650 mg Q4H PRN Administration pain/fever Enoxaparin Sodium 40 mg 07/03/23 09:00 07/04/23 07:48 Enoxaparin Inj 40 Mg/0.4 Ml Syr SQ 08/02/23 08:59 Not Given Q24H DINORA Hydromorphone HCl 0.5 mg 07/03/23 08:21 07/03/23 22:51 Hydromorphone Inj 0.5 Mg/0.5 Ml Syr IV 07/17/23 08:20 0.5 mg Q3H PRN Administration Pain Ondansetron HCl 4 mg 07/03/23 08:21 07/04/23 14:29 Ondansetron Inj 2 Mg/Ml 2 Ml Vial IV 08/02/23 08:20 4 mg Q6H PRN Administration Nausea
[2023-07-04] MEDS: POLYETHYLENE (MIRALAX) 17 GM PACK PO SCH (17:31)
[2023-07-04 22:45] VITALS: O2SAT 98
[2023-07-05 07:25] LABS: Hemoglobin 11.3 g/dl (12.0-16.0); Mean Corpuscular Hemoglobin 32.8 pg (25.0-34.0); Mean Corpuscular Hgb Conc 34.2 g/dL (32.0-36.0); Mean Corpuscular Volume 95.7 fL (80.0-100.0); Platelet Count 160 K/uL (130-400); RDW Coefficient of Variation 13.6 % (11.5-14.5); RDW Standard Deviation 47.6 fL (36.4-46.3); Red Blood Count 3.45 M/uL (4.20-5.40); White Blood Count 3.01 K/ul (4.8-10.8)
[2023-07-05 07:45] LABS: BUN Creatinine Ratio 8.4 (10-20); Calcium 8.6 mg/dl (8.6-10.3); Creatinine Clr Calc Pharmacy 76.5 ml/min; Est GFR (African American) 80.9 ml/min; Est GFR (Non-African American) 69.8 ml/min; Potassium 3.8 mmol/L (3.5-5.1)
[2023-07-05 07:50] VITALS: BP 116/77; PULSE 63; RESP 17; TEMP 97.5
[2023-07-05] MEDS ORDERED: bisacodyL 10 MG SUPP PR STA (08:37)
[2023-07-05] MEDS: ENOXAPARIN INJ 40 MG/0.4 ML SYR SQ SCH (08:58)
[2023-07-05] MEDS: POLYETHYLENE (MIRALAX) 17 GM PACK PO SCH (08:58)
[2023-07-05] MEDS ORDERED: DOCUSATE SODIUM/SENNA 50/8.6MG TAB PO SCH (09:00)
--- NOTE | 2023-07-05 10:13 | Surgery Progress Note ---
Date of Service July 05, 2023 Assessment & Plan (1) SBO (small bowel obstruction): Plan: patient sitting up in chair denies cp, sob, abdominal pain, but reports bloating tolerating low fiber diet, no n/v passing flatus , no BM yet WBC WNL Abdomen soft nontender non distended Encouraged walking Resolving SBO Pt reports hospitalist ordering bowel regimen in hopes for a BM before going home General surgery will sign at this time, Call with questions or concerns. Thank you for allowing us to participate in the care of this patient Admission and Anticipated Discharge Date Admission Date: July 03, 2023 Supervising Physician Co-Signing Physician Notes Patient discussed with JAKE Bell, agree with above. Patient with metastatic breast cancer and prior abdominal surgeries admitted with partial small bowel obstruction. She resolved quite quickly and tolerated low fiber diet and was discharged home this morning. Subjective patient sitting up in chair denies cp, sob, abdominal pain but has bloating tolerating low fiber diet, no n/v passing flatus , no BM yet Review of Systems Constitutional: no fever and no chills Respiratory: no dyspnea Cardiovascular: no chest pain Gastrointestinal: + bloating; no abdominal pain, no nausea and no vomiting Genitourinary: no problem reported Musculoskeletal: no muscle weakness Physical Exam Physical Exam: alert oriented, pleasant Constitutional: well developed, cooperative and comfortable; no acute distress Respiratory: normal respiratory effort and able to speak in complete sentences; no respiratory distress Cardiovascular: Rate/Rhythm: regular rate Gastrointestinal (Abdomen): Inspection/Auscultation: abdomen normal to inspection; abdomen not distended Percussion/Palpation: abdomen soft; abdomen nontender and no guarding Results & Data Vital Signs (Past 12 Hours) Vital Signs Temp Pulse Resp BP Pulse Ox O2 Del Method 07/05/23 07:47 97.5 F L 63 17 116/77 98 Room Air PG Care Time/CCT Total # of Minutes Spent Total Time Spent with Patient: Total time spent is greater than 50% in coordination of care (as documented) at patient's floor/unit and/or counseling patient: Coding Level of Care Code 12641 SUB INP/OBS CARE 2/35MIN Diagnoses SBO (small bowel obstruction) K56.609
--- NOTE | 2023-07-05 11:08 | Discharge Summary ---
Discharge Summary Date of Service July 05, 2023 Notes For Next Care Provider Medication Changes From Visit -Miralax 17g daily -Senakot 1 tab daily Admission HPI Per Admitting Provider This is a 52 yr old F who has significant PMH of hyperlipidemia, metastatic breast Cancer , CKD stage III and sarcoidosis presents with abdominal pain and found to have small bowel obstruction. Patient states pain started after dinner last evening associated with nausea and vomiting. Denies any fevers. No chest pain or shortness of breath. No cough. No headaches. Normal bladder movem ents. Had a normal bowel movement yesterday morning. Currently resting comfortable hemodynamic stable Past medical history. As mentioned above Past surgical history. Periprosthetic capsulectomy of the breast, breast reconstruction, bronchoscopy, colonoscopy, dilatation curettage, EGD, EGD with endoscopic ultrasound, ERCP, exploratory laparotomy, laparoscopic cholecystectomy, laparoscopic oophorectomy, right mastectomy with right axillary lymph node dissection and prophylactic mastectomy, left ankle surgery, total abdominal hysterectomy with removal of tubes salpingo-oophorectomy. Social history. . No smoking. Alcohol occasional. No drug use. Family history. Mother had Alzheimer's disease and hypertension. Maternal grandmother had skin cancer. Sister had cancer. Aunt has colon cancer. Primary Care Provider: Admission Exam Per Admitting Provider General- Not in distress Head- atraumatic Eyes- PERRL. ENT- oropharynx clear Neck- supple, no JVD. Lungs- clear to auscultation , no wheezing or crackles. Heart- regular rhythm; no murmur, no gallop. Abdomen-sluggish bowel sounds, soft, mild tenderness, no distension. Extremities- no pretibial edema, no erythema seen. Neuro- alert, oriented x 3; PERRL, no facial palsy; no dysarthria; moves extremities.Would have ac Skin- warm & dry Principal Dx & Hospital Course #1 = Principal Diagnosis (1) SBO (small bowel obstruction): (2) Breast cancer: Plan Mr. Shante Cordoba is 52 year old woman with history of right breast carcinoma multifocal infiltrating ductal carcinoma as well as lobular carcinoma S/P bilateral mastectomies followed by reconstruction (04/21/2012) with chronic RUE lymphedema with metastatic peripancreatic node now on ribociclib and letrozole, sarcoidosis, who was admitted on 07/03 due to acute SBO. Patient started on conservative management. After fluids and slow advacement of diet, patient eventually passed flatus and stool prior to discharge. #Acute SBO CT scan:Small bowel obstruction with a transition point in the right lower quadrant. There is fecalization of the bowel just proximal to the transition point suggesting an acute on chronic obstruction. -Encouraged daily bowel regimen to keep stool soft/formed, rather than reported solid/firm/rock like -BM prior to discharge #Metastatic breast cancer s/p mastectomy and chemo -follows with heme/onco -Heme/onc evaluating/planning next treatment course given recurrence noted in stomach during EGD, PET scan later this week #Left hydronephrosis with urothelial enhancement in the left renal pelvis #CKD stage III Trend Cr 02/2023 imaging with Urothelial enhancement in the left renal pelvis present in EPIC review, now seems to have progressed Asymptomatic, UA to culture (+epi cells), no active symptoms -Improved since prior imaging #Sarcoidosis Currently not under treatment On day of discharge, patient was ambulating halls without difficulty, eating well, and passing stool/flatus. patient denied any pain at time of exam. Plan to discharge with plans of daily regimen. Discharge Exam Constitutional WD/WN, vitals as above Respiratory normal respiratory effort, lungs clear to auscultation Cardiovascular RRR, no murmur, no edema Gastrointestinal (Abdomen) normal bowel sounds, soft, nontender, no hepatosplenomegaly Musculoskeletal no cyanosis or clubbing, extremities motor strength 5/5 Updated Medication List Medication Instructions Recorded Confirmed Type letrozole 2.5 mg tablet 2.5 mg PO DAILY 07/03/23 07/03/23 History omeprazole 20 mg tablet,delayed 20 mg PO BID 07/03/23 07/03/23 History release ribociclib 400 mg/day (200 mg x 2) 400 mg PO DAILY 07/03/23 07/03/23 History tablets (Kisqali) trazodone 50 mg tablet 50 mg PO HS 07/03/23 07/03/23 History polyethylene glycol 3350 17 gram 17 g PO DAILY #30 ea 07/05/23 Rx oral powder packet (Miralax) sennosides 8.6 mg-docusate sodium 2 tab PO QAM #30 tabs 07/05/23 Rx 50 mg tablet (Senokot-S) Hospital Stay Data Consultations 07/03/23 04:30 ED Decision to Admit Stat 07/03/23 08:21 Consult General Surgery Routine Diagnostic Imagining Performed 07/03/23 02:46 CT abd pelvis IV con only Stat Pending Results Patient Have Any Pending Studies at Discharge: No Discharge Instructions Given to Patient (Per Discharging Provider) You were admitted with abdominal pain and found to have a small bowel obstruction You were treated with conservative measures and able to pass stool prior to discharge. It is strongly recommended you continue a bowel regimen with goal to keep stool formed, but soft. IMPRESSION: 1. Small bowel obstruction with a transition point in the right lower quadrant. There is fecalization of the bowel just proximal to the transition point suggesting an acute on chronic obstruction. 2. Mild left hydronephrosis. No visual is obstructing nephrolithiasis. 3. A small amount of free fluid in the abdomen and pelvis is nonspecific. Total Time Total Time Spent Total Time Spent (In Minutes): 35
== END 2023-07-05 12:02 | disposition home or self-care (01) | DRG 389 ==
LOC: ED 02:37 → EDINP 06:54 → 3N 08:22

== ENCOUNTER 2023-08-12 21:33 | Inpatient (IN) ==
[2023-08-12 22:20] LABS: Hematocrit (blood only) 41.6 % (37.0-47.0); Mean Corpuscular Hemoglobin 31.6 pg (25.0-34.0); Mean Corpuscular Hgb Conc 33.7 g/dL (32.0-36.0); Mean Corpuscular Volume 93.9 fL (80.0-100.0); RDW Coefficient of Variation 12.5 % (11.5-14.5); RDW Standard Deviation 43.3 fL (36.4-46.3); Red Blood Count 4.43 M/uL (4.20-5.40); White Blood Count 3.67 K/ul (4.8-10.8)
[2023-08-12 22:21] LABS: Basophils # (auto) 0.03 K/uL (0.00-0.20); Basophils % (auto) 0.8 %; Eosinophils # (auto) 0.06 K/uL (0.00-0.50); Eosinophils % (auto) 1.6 %; Immature Granulocytes # (auto) 0.01 K/uL (0.01-0.20); Immature Granulocytes % (auto) 0.3 %; Lymphocytes # (auto) 0.96 K/uL (1.20-3.40); Lymphocytes % (auto) 26.2 %; Mean Platelet Volume 9.7 fL (9.4-12.4); Monocytes # (auto) 0.39 K/uL (0.11-0.59); Monocytes % (auto) 10.6 %; Neutrophils # (auto) 2.22 K/uL (1.40-6.50); Neutrophils % (auto) 60.5 %; Platelet Count 210 K/uL (130-400)
[2023-08-12 22:30] LABS: Albumin Globulin Ratio 1.5 (0.9-2); Albumin Level 4.4 gm/dl (3.4-5.0); BUN Creatinine Ratio 9.5 (10-20); Bilirubin,Total 0.5 mg/dl (0.2-1.0); Calcium 9.8 mg/dl (8.6-10.3); Creatinine Clr Calc Pharmacy 61.4 ml/min; Est GFR (African American) 63.6 ml/min; Est GFR (Non-African American) 54.9 ml/min; Globulin 2.9 gm/dl (2.5-4.0); Potassium 3.7 mmol/L (3.5-5.1); Total Protein 7.3 gm/dl (6.0-8.3)
[2023-08-12] MEDS ORDERED: ONDANSETRON INJ 2 MG/ML 2 ML VIAL IV STA (22:44)
[2023-08-12] MEDS ORDERED: SODIUM CHLORIDE 0.9% 1,000 ML IV SCH (22:45)
[2023-08-12] MEDS: MoRPHine SULFATE 4 MG/ML 1 ML CARP\\VIAL IV PRN (22:49)
[2023-08-12 23:04] LABS: Appearance Urine Clear (Clear); Bacteria Urine Automated Negative (Negative); Bilirubin Urine Negative (Negative); Blood Urine Negative (Negative); Cast Urine Automated 0 /lpf (0-5); Color Urine Yellow; Glucose Urine UA Negative (Negative); Ketones Urine 1+ (Negative); Leukocyte Esterase Urine 2+ (Negative); Nitrite Urine Negative (Negative); Protein Urine Negative (Negative); RBC Urine Automated 0-4 /hpf (0-4); Specific Gravity Urine 1.017 (1.000-1.030); Urobilinogen Urine Negative (Negative)
[2023-08-12] MEDS ORDERED: OPTIRAY 320 500ml IV ONE (23:15)
--- NOTE | 2023-08-12 23:50 | Emergency Department Note ---
History of Present Illness General Chief complaint: Abdominal Pain Stated complaint: STOMACH PAIN, VOMITING, BLOATING Time Seen by Provider: 08/12/23 22:33 History of Present Illness Maximum Pain Intensity: 2 This is a 52-year-old female presenting to the emergency department for evaluation of abdominal pain that has been waxing and waning for the past week. Patient has a history of small bowel obstruction, most recently about 2 months ago, and she states her symptoms feel similar. The patient takes MiraLAX and Colace on a regular basis and is only passing small amounts of stool. She has not had fever or chills. She is nauseated without vomiting. Home Medications Medication Instructions Recorded Confirmed Type letrozole 2.5 mg tablet 2.5 mg PO DAILY 07/03/23 08/12/23 History omeprazole 20 mg tablet,delayed 20 mg PO BID 07/03/23 08/12/23 History release ribociclib 400 mg/day (200 mg x 2) 400 mg PO DAILY 07/03/23 08/12/23 History tablets (Kisqali) trazodone 50 mg tablet 50 mg PO HS 07/03/23 08/12/23 History polyethylene glycol 3350 17 gram 17 g PO DAILY #30 ea 07/05/23 08/12/23 Rx oral powder packet (Miralax) docusate sodium 100 mg capsule 200 mg PO BID 08/12/23 08/12/23 History (Colace) Allergies Allergy/AdvReac Type Severity Reaction Status Date / Time No Known Allergies Allergy Verified 08/12/23 23:32 Past Med/Surg History Medical History (Updated 08/13/23 @ 04:38 by Amando Dupree PA-C) Sarcoidosis Breast cancer (03/21/12) "Self detected right breast mass Status post right breast ultrasound and core needle biopsy revealing invasive ductal carcinoma with extensive DCIS and invasive lobular carcinoma estrogen receptor positive, progesterone receptor positive, and HER-2/rasihda negative Status post right mastectomy and axillary dissection with left prophylactic mastectomy Stage pT3 bN3 M0 Status post systemic chemotherapy with TAC Status post completion of radiation therapy 01/25/2013 received 5920 cGy Status post placement of permanent implants " Surgical History Hx laparoscopic cholecystectomy (10/02/19) Laparoscopic Cholecystectomy with Cholangiogram Dr. Vargas 10/02/19 History of D&C History of esophagogastroduodenoscopy (EGD) 11/2018 dx gastritis History of bronchoscopy History of oophorectomy History of bilateral mastectomy 04/21/2012 Right mastectomy with right axillary lymph node dissectiona nd left prophylactic mastectomy 04/21/12 Dr. Carbajal at [facility] Family History Father Alive and well Mother Alzheimer disease Denies family history of Heart disease Breast cancer Social History Smoking Status: Never smoker Do You Dip or Chew Tobacco: No; Hx Alcohol Use: Yes Alcohol type: beer, wine and hard liquor Hx Substance Use: No Preferred Language: Chinese Communication Ability: Effective Flight Crew Time Clerk Required: No Beliefs That Will Affect Care: None marital status: Current Living Situation: Spouse Feels Safe at Home: Yes Assistive Devices: None Review of Systems A total of 10 systems reviewed and were otherwise negative Physical Exam Vital Signs Vital Signs - 24 hr 08/12/23 21:39 08/12/23 22:57 08/13/23 00:00 Temperature 36.6 C Temperature Source Temporal Artery Scan Pulse Rate 83 Pulse Rate [Finger] 67 70 Pulse Rhythm [Finger] Pulse Strength [Finger] Respiratory Rate 18 18 18 Respiratory Effort / Characteristics Non-Labored Spontaneous Respiratory Depth Normal Normal Normal Respiratory Pattern Blood Pressure 138/90 Blood Pressure [Left Arm] 132/71 121/84 Blood Pressure Mean 106 Blood Pressure Mean [Left Arm] 91 96 Blood Pressure Position [Left Arm] Semi-fowlers Semi-fowlers Pulse Oximetry 98 96 97 Oxygen Delivery Method Room Air Room Air Room Air Sepsis Recent Fever Within 48 Hours No Sepsis New/Unexplained Change in Mental Status No Sepsis Action Taken by Nursing No Action Required 08/13/23 02:00 08/13/23 04:00 Temperature Temperature Source Pulse Rate Pulse Rate [Finger] 80 76 Pulse Rhythm [Finger] Regular Pulse Strength [Finger] Normal Respiratory Rate 18 16 Respiratory Effort / Characteristics Non-Labored Spontaneous Respiratory Depth Normal Normal Respiratory Pattern Regular Blood Pressure Blood Pressure [Left Arm] 136/82 132/81 Blood Pressure Mean Blood Pressure Mean [Left Arm] 100 98 Blood Pressure Position [Left Arm] Semi-fowlers Lying Pulse Oximetry 98 96 Oxygen Delivery Method Room Air Room Air Sepsis Recent Fever Within 48 Hours Sepsis New/Unexplained Change in Mental Status Sepsis Action Taken by Nursing VITALS: Vitals are noted on the nurse's note and reviewed by myself. Vital signs stable. GENERAL: Well-developed, well-nourished, white female, who is in no acute distress and resting comfortably. Patient is cooperative with the examination. HEAD: Normocephalic atraumatic. MOUTH: Mucous membranes moist. Tonsils are not enlarged. Pharynx without erythema, blood, or exudate. Uvula midline. Airway patent. NECK: Supple without nuchal rigidity. No lymphadenopathy. No thyromegaly. Cervical spine is nontender. HEART: Regular rate and rhythm without murmurs gallops or rubs. LUNGS: Clear to auscultation bilaterally without wheezes, rales or rhonchi. No retractions or accessory muscle use. ABDOMEN: Positive normal bowel sounds x 4. Soft, nontender, without masses or organomegaly. No guarding or rebound tenderness. MUSCULOSKELETAL: No muscle atrophy, erythema, or edema noted. Full range of motion in all extremities. Course Administered Medications Morphine Sulfate (Morphine Sulfate 4 Mg/Ml 1 Ml Carp\\Vial) 4 mg IV Q30M PRN PRN Reason: Pain Stop: 08/26/23 22:43 Last Admin: 08/13/23 04:07 Dose: 4 mg Documented By: Admin: 08/13/23 02:47 Dose: 4 mg Documented By: Admin: 08/13/23 00:31 Dose: 4 mg Documented By: Admin: 08/12/23 22:49 Dose: 4 mg Documented By: SERENA Discontinued Medications Sodium Chloride (Nss) 1,000 mls @ 999 mls/hr IV .Q1H1M DINORA Stop: 08/12/23 23:45 Last Infusion: 08/13/23 00:22 Dose: Infused Documented By: Admin: 08/12/23 23:20 Dose: 999 mls/hr Documented By: SERENA Ioversol (Optiray 320 500ml) 88 ml IV ONCE ONE Stop: 08/12/23 23:16 Last Admin: 08/12/23 23:16 Dose: 88 ml Documented By: RUBEN Ondansetron HCl (Ondansetron Inj 2 Mg/Ml 2 Ml Vial) 4 mg IV NOW STA Stop: 08/12/23 22:45 Last Admin: 08/12/23 22:49 Dose: 4 mg Documented By: SERENA Medical Decision Making Laboratory Data 08/12/23 21:49 08/12/23 21:49 Lab Results 08/12/23 08/12/23 08/12/23 Range/Units 21:49 22:07 22:59 WBC 3.67 L (4.8-10.8) K/ul RBC 4.43 (4.20-5.40) M/uL Hgb 14.0 (12.0-16.0) g/dl Hct 41.6 (37.0-47.0) % MCV 93.9 (80.0-100.0) fL MCH 31.6 (25.0-34.0) pg MCHC 33.7 (32.0-36.0) g/dL RDW Std Deviation 43.3 (36.4-46.3) fL RDW Coeff of Salvatore 12.5 (11.5-14.5) % Plt Count 210 (130-400) K/uL MPV 9.7 (9.4-12.4) fL Immature Gran % (Auto) 0.3 % Neut % (Auto) 60.5 % Lymph % (Auto) 26.2 % [place] % (Auto) 10.6 % Eos % (Auto) 1.6 % Baso % (Auto) 0.8 % Neut # (Auto) 2.22 (1.40-6.50) K/uL Lymph # (Auto) 0.96 L (1.20-3.40) K/uL [place] # (Auto) 0.39 (0.11-0.59) K/uL Eos # (Auto) 0.06 (0.00-0.50) K/uL Baso # (Auto) 0.03 (0.00-0.20) K/uL Immature Gran # (Auto) 0.01 (0.01-0.20) K/uL Sodium 137 (136-145) mmol/L Potassium 3.7 (3.5-5.1) mmol/L Chloride 102 (98-107) mmol/L Carbon Dioxide 26 (21-32) mmol/L Anion Gap 9 (3-11) BUN 11 (6-23) mg/dl Creatinine 1.16 (0.6-1.2) mg/dl Est Cr Clr Drug Dosing 61.4 ml/min Est GFR ( Amer) 63.6 ml/min Est GFR (Non-Af Amer) 54.9 ml/min BUN/Creatinine Ratio 9.5 L (10-20) Glucose 110 H (70-99(Fasting)) mg/dl Calcium 9.8 (8.6-10.3) mg/dl Total Bilirubin 0.5 (0.2-1.0) mg/dl AST 16 (13-39) U/L ALT 15 (7-52) U/L Alkaline Phosphatase 46 (34-104) U/L Total Protein 7.3 (6.0-8.3) gm/dl Albumin 4.4 (3.4-5.0) gm/dl Globulin 2.9 (2.5-4.0) gm/dl Albumin/Globulin Ratio 1.5 (0.9-2) Lipase 32 (11-82) U/L Urine Color Yellow Urine Appearance Clear (Clear) Urine pH 7.0 (4.5-7.5) Ur Specific [place] 1.017 (1.000-1.030) Urine Protein Negative (Negative) Urine Glucose (UA) Negative (Negative) Urine Ketones 1+ H (Negative) Urine Blood Negative (Negative) Urine Nitrite Negative (Negative) Urine Bilirubin Negative (Negative) Urine Urobilinogen Negative (Negative) Ur Leukocyte Esterase 2+ H (Negative) Urine WBC (Auto) 5-10 H (0-5) /hpf Urine RBC (Auto) 0-4 (0-4) /hpf U Hyaline Cast (Auto) 0 (0-5) /lpf U Epithel Cells (Auto) 5-10 H (0-5) /lpf Urine Bacteria (Auto) Negative (Negative) Adenovirus (PCR) Not Detected (NotDetected) B. pertussis DNA (PCR) Not Detected (NotDetected) B.parapertussis DNA PCR Not Detected (NotDetected) C. pneumoniae DNA (PCR) Not Detected (NotDetected) Coronavirus OC43 (PCR) Not Detected (NotDetected) Coronavirus HKU1 (PCR) Not Detected (NotDetected) Coronavirus 229E (PCR) Not Detected (NotDetected) SARS-CoV-2 (PCR) Not Detected (NotDetected) Coronavirus NL63 (PCR) Not Detected (NotDetected) Human Metapneumovir PCR Not Detected (NotDetected) Influenza Type A (PCR) Not Detected (NotDetected) Influenza Type B (PCR) Not Detected (NotDetected) M. pneumoniae (PCR) Not Detected (NotDetected) Parainfluenza 1 (PCR) Not Detected (NotDetected) Parainfluenza 2 (PCR) Not Detected (NotDetected) Parainfluenza 3 (PCR) Not Detected (NotDetected) Parainfluenza 4 (PCR) Not Detected (NotDetected) RSV (PCR) Not Detected (NotDetected) Entero/Rhino (PCR) Not Detected (NotDetected) Imaging Data Radiologist's Impression: Abdomen/Pelvis CT 08/12/23 22:13 Exam(s): CT ABDOMEN + PELVIS With Contrast IV Amt: 88 ml opti 320 EXAM: CT Abdomen and Pelvis With Intravenous Contrast CLINICAL HISTORY: Reason for exam: abdominal pain, hx sbo. TECHNIQUE: Axial computed tomography images of the abdomen and pelvis with intravenous contrast. CTDI is 18.33 mGy and DLP is 938.76 mGy-cm. Automated exposure control was utilized for the study. A dose lowering technique was utilized adhering to the principles of ALARA. CONTRAST: Patient received 88 ml opti 320 of IV contrast COMPARISON: 07/03/2023. FINDINGS: Lung bases: Unremarkable. No mass. No consolidation. ABDOMEN: Liver: Unremarkable. No mass. Gallbladder and bile ducts: Post cholecystectomy. Unchanged intrahepatic and extrahepatic biliary ductal dilatation. Ductal dilation. Pancreas: Unremarkable. No mass. No ductal dilation. Spleen: Unremarkable. No splenomegaly. Adrenals: Unremarkable. No mass. Kidneys and ureters: Unchanged mild left hydronephrosis. Normal caliber left ureter. No obstructing calculus identified. Right kidney and ureter are unremarkable. Stomach and bowel: Unchanged mild gastric antral wall thickening. Diffuse small bowel dilatation with air-fluid levels and mild wall thickening greatest distally. Transition in the right abdomen with distal small bowel wall thickening. Mild diffuse abdominal and pelvic free fluid, increased. Normal caliber colon with moderate stool. No evidence for diverticulitis. PELVIS: Appendix: No findings to suggest acute appendicitis. Bladder: Partially contracted. No mass. Reproductive: Uterus and ovaries are grossly unremarkable. ABDOMEN and PELVIS: Intraperitoneal space: No free air. No free fluid. Bones/joints: No acute fracture. Soft tissues: Partially visualized bilateral breast implants. Vasculature: Unremarkable. No abdominal aortic aneurysm. Lymph nodes: Unremarkable. No enlarged lymph nodes. IMPRESSION: Distal small bowel obstruction with a transition the right lower quadrant., similar to the prior study. Slight increase in mild diffuse abdominal and pelvic free fluid. Otherwise no change including biliary ductal dilatation status post cholecystectomy and left hydronephrosis without obstructing calculus. Electronically signed by: Bill Simental M.D. 08/13/23 01:02 AM MDM Narrative Physical exam and history were performed. Nursing notes, EMR, and Medication List were personally reviewed. No social concerns were identified as barriers to patients care. Patient appears to have abdominal pain bringing her to the ER. IV access was established and labs were obtained. Patient was hydrated medicated as above. She has a history of small bowel obstruction and because of this CT scan was performed. Patient's blood work is as above and was reviewed. She does not have a significantly elevated white blood cell count, gross anemia, bandemia, or significant electrolyte imbalance. Transaminases are not diagnostic. CT scan is as above and was reviewed by myself and radiology. CT scan is consistent with a small bowel obstruction with transition point in the right lower quadrant. I did reach out to the on-call surgeon, Dr. Hurtado, as well as the on-call hospitalist. NG tube was placed by nursing and patient seems to be tolerating this well. Please see the surgical and hospitalist dictations for further patient course, plan, and disposition. The chart was completed utilizing [employer] Speech Voice Recognition Software. Grammatical errors, random word insertions, pronoun errors, and incomplete sentences are an occasional consequence of this system due to software limitations, ambient noise, and hardware issues. Any formal questions or concerns about the content, text, or information contained within the body of this dictation should be directly addressed to the provider for clarification. . Impression & Plan SBO (small bowel obstruction) Discharge Plan Visit Data Chief Complaint: Abdominal Pain Stated Complaint: STOMACH PAIN, VOMITING, BLOATING ED Provider: Kamron Ceballos ED Midlevel Provider: Amando Dupree Discharge Problem: SBO (small bowel obstruction) Forms Stand Alone Forms: My [employer] Prescriptions Prescriptions: No Action docusate sodium [Colace] 100 mg Capsule 200 mg PO BID trazodone 50 mg tablet 50 mg PO HS letrozole 2.5 mg tablet 2.5 mg PO DAILY Kisqali 400 mg/day (200 mg x 2) tablet 400 mg PO DAILY Rx Instructions: FOR 21 DAYS AND THEN 7 DAYS OFF IN 28DAY CYCLE. omeprazole 20 mg Tablet,Delayed Release (Dr/Ec) 20 mg PO BID polyethylene glycol 3350 [Miralax] 17 gram Powder In Packet 17 g PO DAILY Qty: 30 0RF Referrals Referrals: Susie White MD [Primary Care Provider] -
[2023-08-13 00:01] LABS: Adenovirus PCR Not Detected (NotDetected); Bordetella parapertussis PCR Not Detected (NotDetected); Bordetella pertussis PCR Not Detected (NotDetected); Chlamydia pneumoniae PCR Not Detected (NotDetected); Coronavirus 229E PCR Not Detected (NotDetected); Coronavirus CoV-2 (COVID19)PCR Not Detected (NotDetected); Coronavirus HKU1 PCR Not Detected (NotDetected); Coronavirus NL63 PCR Not Detected (NotDetected); Coronavirus OC43PCR Not Detected (NotDetected); Human Metapneumovirus PCR Not Detected (NotDetected); Influenza A PCR Not Detected (NotDetected); Influenza B PCR Not Detected (NotDetected); Mycoplasma pneumoniae PCR Not Detected (NotDetected); Parainfluenza Virus 1 PCR Not Detected (NotDetected); Parainfluenza Virus 2 PCR Not Detected (NotDetected); Parainfluenza Virus 3 PCR Not Detected (NotDetected); Parainfluenza Virus 4 PCR Not Detected (NotDetected); Respiratory Syncytial VirusPCR Not Detected (NotDetected); Rhinovirus/Enterovirus PCR Not Detected (NotDetected)
[2023-08-13] MEDS: MoRPHine SULFATE 4 MG/ML 1 ML CARP\\VIAL IV PRN ×3 (00:31→04:07)
--- NOTE | 2023-08-13 01:03 | CT Scan Report ---
Exam(s): CT ABDOMEN + PELVIS With Contrast IV Amt: 88 ml opti 320 EXAM: CT Abdomen and Pelvis With Intravenous Contrast CLINICAL HISTORY: Reason for exam: abdominal pain, hx sbo. TECHNIQUE: Axial computed tomography images of the abdomen and pelvis with intravenous contrast. CTDI is 18.33 mGy and DLP is 938.76 mGy-cm. Automated exposure control was utilized for the study. A dose lowering technique was utilized adhering to the principles of ALARA. CONTRAST: Patient received 88 ml opti 320 of IV contrast COMPARISON: 07/03/2023. FINDINGS: Lung bases: Unremarkable. No mass. No consolidation. ABDOMEN: Liver: Unremarkable. No mass. Gallbladder and bile ducts: Post cholecystectomy. Unchanged intrahepatic and extrahepatic biliary ductal dilatation. Ductal dilation. Pancreas: Unremarkable. No mass. No ductal dilation. Spleen: Unremarkable. No splenomegaly. Adrenals: Unremarkable. No mass. Kidneys and ureters: Unchanged mild left hydronephrosis. Normal caliber left ureter. No obstructing calculus identified. Right kidney and ureter are unremarkable. Stomach and bowel: Unchanged mild gastric antral wall thickening. Diffuse small bowel dilatation with air-fluid levels and mild wall thickening greatest distally. Transition in the right abdomen with distal small bowel wall thickening. Mild diffuse abdominal and pelvic free fluid, increased. Normal caliber colon with moderate stool. No evidence for diverticulitis. PELVIS: Appendix: No findings to suggest acute appendicitis. Bladder: Partially contracted. No mass. Reproductive: Uterus and ovaries are grossly unremarkable. ABDOMEN and PELVIS: Intraperitoneal space: No free air. No free fluid. Bones/joints: No acute fracture. Soft tissues: Partially visualized bilateral breast implants. Vasculature: Unremarkable. No abdominal aortic aneurysm. Lymph nodes: Unremarkable. No enlarged lymph nodes. IMPRESSION: Distal small bowel obstruction with a transition the right lower quadrant., similar to the prior study. Slight increase in mild diffuse abdominal and pelvic free fluid. Otherwise no change including biliary ductal dilatation status post cholecystectomy and left hydronephrosis without obstructing calculus. Electronically signed by: Bill Simental M.D. 08/13/23 01:02 AM
--- NOTE | 2023-08-13 06:26 | History & Physical Report ---
Date of Service August 13, 2023 Assessment & Plan (1) SBO (small bowel obstruction): Plan: 52 yr old Female with PMH of hyperlipidemia, metastatic breast Cancer , CKD stage III and sarcoidosis presents with abdominal pain and found to have recurrent small bowel obstruction. Small bowel obstruction Recurrent S/p NG tube N.p.o. IV fluids IV Dilaudid as needed IV antiemetics as needed Consult surgery History of metastatic breast cancer On letrozole and Kisqali. Restart when able to take p.o. Patient had a EGD which showed gastric ulcers and pathology was consistent with breast primary Heme-onc to continue current medications and follow-up EGD in August 2023 Patient is going to have second opinion with [facility] as per heme-onc notes CKD stage III Presented with creatinine 1.1 which seems to be around baseline Follow labs Sarcoidosis Seems currently not under treatment DVT prophylaxis Lovenox Disposition Med/surg Full code History of Present Illness Chief Complaint: Small bowel obstruction Primary Care Provider: Susie White MD 52 yr old Female with PMH of hyperlipidemia, metastatic breast Cancer , CKD stage III and sarcoidosis presents with abdominal pain and found to have recurrent small bowel obstruction. Patient states abdominal pain started last Tuesday on and off but last night was continuous and very severe in nature so she came to the ER. Currently s/p NG tube. Currently pain is improved. Was having nausea and vomitings. Was constipated. Last good bowel movement was last Tuesday. She had small amount of stools yesterday morning. Denies any fevers. Micturating okay. No chest pain or shortness of breath. No cough. No headache. No runny nose or sore throat. Hemodynamics are stable. Past medical history. As mentioned above Past surgical history. Periprosthetic capsulectomy of the breast, breast reconstruction, bronchoscopy, colonoscopy, dilatation curettage, EGD, EGD with endoscopic ultrasound, ERCP, exploratory laparotomy, laparoscopic cholecystectomy, laparoscopic oophorectomy, right mastectomy with right axillary lymph node dissection and prophylactic mastectomy, left ankle surgery, total abdominal hysterectomy with removal of tubes salpingo-oophorectomy. Social history. . No smoking. Alcohol occasional. No drug use. Family history. Mother had Alzheimer's disease and hypertension. Maternal grandmother had skin cancer. Sister had cancer. Aunt has colon cancer. Allergies Allergy/AdvReac Type Severity Reaction Status Date / Time No Known Allergies Allergy Verified 08/12/23 23:32 Home Medications Medication Instructions Recorded Confirmed Type letrozole 2.5 mg tablet 2.5 mg PO DAILY 07/03/23 08/12/23 History omeprazole 20 mg tablet,delayed 20 mg PO BID 07/03/23 08/12/23 History release ribociclib 400 mg/day (200 mg x 2) 400 mg PO DAILY 07/03/23 08/12/23 History tablets (Kisqali) trazodone 50 mg tablet 50 mg PO HS 07/03/23 08/12/23 History polyethylene glycol 3350 17 gram 17 g PO DAILY #30 ea 07/05/23 08/12/23 Rx oral powder packet (Miralax) docusate sodium 100 mg capsule 200 mg PO BID 08/12/23 08/12/23 History (Colace) Past Med/Surg History Medical History (Updated 08/13/23 @ 04:38 by Amando Dupree PA-C) Sarcoidosis Breast cancer (03/21/12) "Self detected right breast mass Status post right breast ultrasound and core needle biopsy revealing invasive ductal carcinoma with extensive DCIS and invasive lobular carcinoma estrogen receptor positive, progesterone receptor positive, and HER-2/rashida negative Status post right mastectomy and axillary dissection with left prophylactic mastectomy Stage pT3 bN3 M0 Status post systemic chemotherapy with TAC Status post completion of radiation therapy 01/25/2013 received 5920 cGy Status post placement of permanent implants " Surgical History Hx laparoscopic cholecystectomy (10/02/19) Laparoscopic Cholecystectomy with Cholangiogram Dr. Vargas 10/02/19 History of D&C History of esophagogastroduodenoscopy (EGD) 11/2018 dx gastritis History of bronchoscopy History of oophorectomy History of bilateral mastectomy 04/21/2012 Right mastectomy with right axillary lymph node dissectiona nd left prophylactic mastectomy 04/21/12 Dr. Carbajal at [facility] Family History Father Alive and well Mother Alzheimer disease Denies family history of Heart disease Breast cancer Social History Smoking Status: Never smoker Do You Dip or Chew Tobacco: No; Hx Alcohol Use: Yes Alcohol type: beer, wine and hard liquor Hx Substance Use: No Preferred Language: Mongolian Communication Ability: Effective Lead Data Architect Required: No Beliefs That Will Affect Care: None marital status: Current Living Situation: Spouse Feels Safe at Home: Yes Assistive Devices: None Review of Systems Review of Systems: All systems reviewed & are unremarkable except as noted in HPI & below Physical Exam Physical Exam: General- Not in distress Head- atraumatic Eyes- PERRL. ENT- s/p NG tube Neck- supple, no JVD. Lungs- clear to auscultation no wheezing or crackles. Heart- regular rhythm; no murmur, no gallop. Abdomen- sluggish bowel sounds, soft, mild diffuse tender , no distension. Extremities- no pretibial edema, no erythema seen Neuro- alert, oriented x 3; PERRL, no facial palsy; no dysarthria; moves extremities. Skin- warm & dry Results & Data Results & Data Vital Signs (Past 12 Hours) Vital Signs Temp Pulse Pulse Resp BP BP Pulse Ox 08/13/23 06:00 81 16 129/87 94 08/13/23 04:00 76 16 132/81 96 08/13/23 02:00 80 18 136/82 98 08/13/23 00:00 70 18 121/84 97 08/12/23 22:57 67 18 132/71 96 08/12/23 21:39 36.6 C 83 18 138/90 98 O2 Del Method 08/13/23 06:00 Room Air 08/13/23 04:00 Room Air 08/13/23 02:00 Room Air 08/13/23 00:00 Room Air 08/12/23 22:57 Room Air 08/12/23 21:39 Room Air Diagnostic Findings Laboratory Results WBC 3.67 K/ul (4.8-10.8) L 08/12/23 21:49 RBC 4.43 M/uL (4.20-5.40) 08/12/23 21:49 Hgb 14.0 g/dl (12.0-16.0) 08/12/23 21:49 Hct 41.6 % (37.0-47.0) 08/12/23 21:49 MCV 93.9 fL (80.0-100.0) 08/12/23 21:49 MCH 31.6 pg (25.0-34.0) 08/12/23 21:49 MCHC 33.7 g/dL (32.0-36.0) 08/12/23 21:49 RDW Std Deviation 43.3 fL (36.4-46.3) 08/12/23 21:49 RDW Coeff of Salvatore 12.5 % (11.5-14.5) 08/12/23 21:49 Plt Count 210 K/uL (130-400) 08/12/23 21:49 MPV 9.7 fL (9.4-12.4) 08/12/23 21:49 Immature Gran % (Auto) 0.3 % 08/12/23 21:49 Neut % (Auto) 60.5 % 08/12/23 21:49 Lymph % (Auto) 26.2 % 08/12/23 21:49 [place] % (Auto) 10.6 % 08/12/23 21:49 Eos % (Auto) 1.6 % 08/12/23 21:49 Baso % (Auto) 0.8 % 08/12/23 21:49 Neut # (Auto) 2.22 K/uL (1.40-6.50) 08/12/23 21:49 Lymph # (Auto) 0.96 K/uL (1.20-3.40) L 08/12/23 21:49 [place] # (Auto) 0.39 K/uL (0.11-0.59) 08/12/23 21:49 Eos # (Auto) 0.06 K/uL (0.00-0.50) 08/12/23 21:49 Baso # (Auto) 0.03 K/uL (0.00-0.20) 08/12/23 21:49 Immature Gran # (Auto) 0.01 K/uL (0.01-0.20) 08/12/23 21:49 Sodium 137 mmol/L (136-145) 08/12/23 21:49 Potassium 3.7 mmol/L (3.5-5.1) 08/12/23 21:49 Chloride 102 mmol/L (98-107) 08/12/23 21:49 Carbon Dioxide 26 mmol/L (21-32) 08/12/23 21:49 Anion Gap 9 (3-11) 08/12/23 21:49 BUN 11 mg/dl (6-23) 08/12/23 21:49 Creatinine 1.16 mg/dl (0.6-1.2) 08/12/23 21:49 Est Cr Clr Drug Dosing 61.4 ml/min 08/12/23 21:49 Est GFR ( Amer) 63.6 ml/min 08/12/23 21:49 Est GFR (Non-Af Amer) 54.9 ml/min 08/12/23 21:49 BUN/Creatinine Ratio 9.5 (10-20) L 08/12/23 21:49 Glucose 110 mg/dl (70-99(Fasting)) H 08/12/23 21:49 Calcium 9.8 mg/dl (8.6-10.3) 08/12/23 21:49 Total Bilirubin 0.5 mg/dl (0.2-1.0) 08/12/23 21:49 AST 16 U/L (13-39) 08/12/23 21:49 ALT 15 U/L (7-52) 08/12/23 21:49 Alkaline Phosphatase 46 U/L (34-104) 08/12/23 21:49 Total Protein 7.3 gm/dl (6.0-8.3) 08/12/23 21:49 Albumin 4.4 gm/dl (3.4-5.0) 08/12/23 21:49 Globulin 2.9 gm/dl (2.5-4.0) 08/12/23 21:49 Albumin/Globulin Ratio 1.5 (0.9-2) 08/12/23 21:49 Lipase 32 U/L (11-82) 08/12/23 21:49 Urine Color Yellow 08/12/23 22:07 Urine Appearance Clear (Clear) 08/12/23 22:07 Urine pH 7.0 (4.5-7.5) 08/12/23 22:07 Ur Specific [place] 1.017 (1.000-1.030) 08/12/23 22:07 Urine Protein Negative (Negative) 08/12/23 22:07 Urine Glucose (UA) Negative (Negative) 08/12/23 22:07 Urine Ketones 1+ (Negative) H 08/12/23 22:07 Urine Blood Negative (Negative) 08/12/23 22:07 Urine Nitrite Negative (Negative) 08/12/23 22:07 Urine Bilirubin Negative (Negative) 08/12/23 22:07 Urine Urobilinogen Negative (Negative) 08/12/23 22:07 Ur Leukocyte Esterase 2+ (Negative) H 08/12/23 22:07 Urine WBC (Auto) 5-10 /hpf (0-5) H 08/12/23 22:07 Urine RBC (Auto) 0-4 /hpf (0-4) 08/12/23 22:07 U Hyaline Cast (Auto) 0 /lpf (0-5) 08/12/23 22:07 U Epithel Cells (Auto) 5-10 /lpf (0-5) H 08/12/23 22:07 Urine Bacteria (Auto) Negative (Negative) 08/12/23 22:07 Adenovirus (PCR) Not Detected (NotDetected) 08/12/23 22:59 B. pertussis DNA (PCR) Not Detected (NotDetected) 08/12/23 22:59 B.parapertussis DNA PCR Not Detected (NotDetected) 08/12/23 22:59 C. pneumoniae DNA (PCR) Not Detected (NotDetected) 08/12/23 22:59 Coronavirus OC43 (PCR) Not Detected (NotDetected) 08/12/23 22:59 Coronavirus HKU1 (PCR) Not Detected (NotDetected) 08/12/23 22:59 Coronavirus 229E (PCR) Not Detected (NotDetected) 08/12/23 22:59 SARS-CoV-2 (PCR) Not Detected (NotDetected) 08/12/23 22:59 Coronavirus NL63 (PCR) Not Detected (NotDetected) 08/12/23 22:59 Human Metapneumovir PCR Not Detected (NotDetected) 08/12/23 22:59 Influenza Type A (PCR) Not Detected (NotDetected) 08/12/23 22:59 Influenza Type B (PCR) Not Detected (NotDetected) 08/12/23 22:59 M. pneumoniae (PCR) Not Detected (NotDetected) 08/12/23 22:59 Parainfluenza 1 (PCR) Not Detected (NotDetected) 08/12/23 22:59 Parainfluenza 2 (PCR) Not Detected (NotDetected) 08/12/23 22:59 Parainfluenza 3 (PCR) Not Detected (NotDetected) 08/12/23 22:59 Parainfluenza 4 (PCR) Not Detected (NotDetected) 08/12/23 22:59 RSV (PCR) Not Detected (NotDetected) 08/12/23 22:59 Entero/Rhino (PCR) Not Detected (NotDetected) 08/12/23 22:59 Impressions Abdomen/Pelvis CT 08/12/23 22:13 Exam(s): CT ABDOMEN + PELVIS With Contrast IV Amt: 88 ml opti 320 EXAM: CT Abdomen and Pelvis With Intravenous Contrast CLINICAL HISTORY: Reason for exam: abdominal pain, hx sbo. TECHNIQUE: Axial computed tomography images of the abdomen and pelvis with intravenous contrast. CTDI is 18.33 mGy and DLP is 938.76 mGy-cm. Automated exposure control was utilized for the study. A dose lowering technique was utilized adhering to the principles of ALARA. CONTRAST: Patient received 88 ml opti 320 of IV contrast COMPARISON: 07/03/2023. FINDINGS: Lung bases: Unremarkable. No mass. No consolidation. ABDOMEN: Liver: Unremarkable. No mass. Gallbladder and bile ducts: Post cholecystectomy. Unchanged intrahepatic and extrahepatic biliary ductal dilatation. Ductal dilation. Pancreas: Unremarkable. No mass. No ductal dilation. Spleen: Unremarkable. No splenomegaly. Adrenals: Unremarkable. No mass. Kidneys and ureters: Unchanged mild left hydronephrosis. Normal caliber left ureter. No obstructing calculus identified. Right kidney and ureter are unremarkable. Stomach and bowel: Unchanged mild gastric antral wall thickening. Diffuse small bowel dilatation with air-fluid levels and mild wall thickening greatest distally. Transition in the right abdomen with distal small bowel wall thickening. Mild diffuse abdominal and pelvic free fluid, increased. Normal caliber colon with moderate stool. No evidence for diverticulitis. PELVIS: Appendix: No findings to suggest acute appendicitis. Bladder: Partially contracted. No mass. Reproductive: Uterus and ovaries are grossly unremarkable. ABDOMEN and PELVIS: Intraperitoneal space: No free air. No free fluid. Bones/joints: No acute fracture. Soft tissues: Partially visualized bilateral breast implants. Vasculature: Unremarkable. No abdominal aortic aneurysm. Lymph nodes: Unremarkable. No enlarged lymph nodes. IMPRESSION: Distal small bowel obstruction with a transition the right lower quadrant., similar to the prior study. Slight increase in mild diffuse abdominal and pelvic free fluid. Otherwise no change including biliary ductal dilatation status post cholecystectomy and left hydronephrosis without obstructing calculus. Electronically signed by: Bill Simental M.D. 08/13/23 01:02 AM Code Status & VTE Plan VTE Prophylaxis Plan VTE Prophylaxis will be ordered: Yes
--- NOTE | 2023-08-13 07:29 | XRay Report ---
KUB CLINICAL HISTORY: NG placement COMPARISON STUDY: CT of the abdomen and pelvis August 12, 2023. FINDINGS: Tip of nasogastric tube is within the body of the stomach. Incidental note is made of excre bulmaro contrast within the collecting systems. Mild left hydronephrosis is again noted. Dilated small bryson wel loops are present. IMPRESSION: 1. Tip of nasogastric tube within the body of the stomach. 2. Findings suggestive of a persistent small bowel obstruction. 3. Mild left hydronephrosis. ACT 112: Negative or not required by law. Electronically signed by: Neil Lemus M.D. 08/13/2023 7:28 AM
[2023-08-13] MEDS ORDERED: ACETAMINOPHEN 500 MG TAB PO PRN (09:18)
[2023-08-13] MEDS: ACETAMINOPHEN 1,000 MG/100 ML VIAL IV PRN ×2 (09:46→18:42)
[2023-08-13] MEDS ORDERED: ONDANSETRON INJ 2 MG/ML 2 ML VIAL IV PRN (10:02)
[2023-08-13 10:35] LABS: Basophils # (auto) 0.04 K/uL (0.00-0.20); Basophils % (auto) 1.3 %; Eosinophils # (auto) 0.06 K/uL (0.00-0.50); Eosinophils % (auto) 1.9 %; Hemoglobin 12.8 g/dl (12.0-16.0); Immature Granulocytes # (auto) 0.01 K/uL (0.01-0.20); Immature Granulocytes % (auto) 0.3 %; Lymphocytes # (auto) 0.99 K/uL (1.20-3.40); Lymphocytes % (auto) 31.2 %; Mean Corpuscular Hemoglobin 32.4 pg (25.0-34.0); Mean Corpuscular Hgb Conc 34.6 g/dL (32.0-36.0); Mean Corpuscular Volume 93.7 fL (80.0-100.0); Mean Platelet Volume 9.6 fL (9.4-12.4); Monocytes # (auto) 0.38 K/uL (0.11-0.59); Neutrophils # (auto) 1.69 K/uL (1.40-6.50); Neutrophils % (auto) 53.3 %; Platelet Count 182 K/uL (130-400); RDW Coefficient of Variation 12.6 % (11.5-14.5); RDW Standard Deviation 43.7 fL (36.4-46.3); Red Blood Count 3.95 M/uL (4.20-5.40); White Blood Count 3.17 K/ul (4.8-10.8)
[2023-08-13 10:48] LABS: BUN Creatinine Ratio 8.3 (10-20); Est GFR (African American) 69.3 ml/min; Est GFR (Non-African American) 59.8 ml/min; Magnesium 1.9 mg/dl (1.7-2.4); Potassium 3.9 mmol/L (3.5-5.1)
--- OUTSIDE RECORDS SUMMARY | 2023-08-13 10:51 | External Medical Summary | Summary of Care ---
Author Name Unknown Organization [facility] Address [address] [address] Phone [phone] Care Team Providers Care Plastics Technician Name Role Phone Susie White MD Primary Care Provider Encounter Details Date Type Department Care Team (Late st Contact Info) Description 05/02/2023 Telephone OR [facility], Operating Room [facility] [address] [place] [phone] Raheem Hagen MD [address] [place] [address] Allergies No known active allergiesdocumented as of this encounter (statuses as of 08/01/2023) Medications Medication Sig Dispensed Refills Start Date [...] as of this encounter (statuses as of 08/01/2023) Active Problems Problem Noted Date Diagnosed Date H/O small bowel obstruction 07/18/2023 Family hx of melanoma 05/26/2023 Overview: Sister [...] as of this encounter (statuses as of 08/01/2023) Resolved Problems Problem Noted Date Diagnosed Date [...] MD PI CRC Name: Molly Chowdhury [facility] Contact PI or ELECTRONIC DEVICE MONITOR regarding any serious medical event, if new [...] MD PI CRC Name: Molly Chowdhury [facility] Contact PI or ELECTRONIC DEVICE MONITOR regarding any serious medical event, if new Rx given, ER visit, hospitalization, or billing question Diagnosis changed due to Research Module. Go to Snapshot for study details. 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 10/13/2019 documented as of this encounter (statuses as of 08/01/2023) Immunizations Name Administration Dates Next Due COVID-19 mRNA, LNP-s, No Pre serve, 2-Dose Series (Moderna) 02/02/2022,05/11/2021,10/04/2020,08/30 Covid-19, Mrna, Lnp-s, Pf, B ivalent, 50 Mcg, IM, 12 yrs and above (Moderna) 07/28/2022 Pneumococcal Conjugate Vacc, 13 Valent (Prevnar) 05/26/2020 Pneumococcal Polysaccharide PPV23 (Pneumovax) 10/01/2021 Seasonal Influenza Virus Vac cine, Unspecified Formulation 06/17/2022,10/01/2021,05/26/2020,06/01 Seasonal Influenza, PF, 6 M & above, IM , (FluLaval or Fluzone) 06/17/2022,10/01/2021,05/26/2020 Seasonal Influenza, Split, I IV3, With [...] encounter Miscellaneous Notes * Telephone Encounter - Ca Sanabria RN - 05/02/2023 9:44 AM EDT Attempted to call for pre anesthesia evaluation. No answer. Voice mail left requesting return call documented in this encounter Plan of Treatment Upcoming Encounters Date Type Department Care Team (Latest Contact Info) Description 08/18/2023 1:30 PM EST Hospital Encounter ENDO [facility], Endoscopy Room [facility] [address] [place] [phone] Kelsey Goldstein, [address] [place] [address] 08/18/2023 1:30 PM EST - 08/18/2023 2:00 PM EST Surgery ENDO [facility], Endoscopy Room [facility] [address] [place] [id number] Kelsey Goldstein, [address] [place] [address] ESOPHAGOGASTRODUODENOSCOPY (EGD), FLEXIBLE, TRANSORAL, DIAGNOSTIC 08/31/2023 9:45 AM EST Pharmacy Pharmacy Hematology Oncology [facility] [address] [place] [address] [facility], [facility] Hem/Onc [address], [place] [id number] 10/11/2023 7:45 AM EST Office Visit Hematology/Oncol ogy [facility] [address] [address] Cory Infante MD [address] [facility] [address] [address] 11/17/2023 11:40 AM EDT Office Visit General Internal Medicine 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) 08/18/2023 1:30 PM EST COLONOSCOPY FLEXIBLE PROXIMA L DIAGNOSTIC Recall History of colonic polyps Health Maintenance Due Date Last Done Comments Hepatitis B (1 of 3 - 3-dose series) 1972 HIV Screening 1987 Hepatitis C Screening 1990 COVID-19 Vaccine ( season) 2023 07/28/2022, 02/02/2022, 05/11/2021, Additional history exists Albumin/Creatinine Ratio 10/29/2023 10/28/2022, 0302/2022 Depression Screening 10/29/2023 10/28/2022 DTaP,Tdap,and Td Vaccines (2 - Td or Tdap) 11/03/2023 11/02/2013 CKD PHOS USE SMARTSET 57784 12/02/2023 04/2 01/2023, 10/12/2021, 02/07/2020 GFR 01/17/2024 07/18/2023, 04/09, 02/04/2023, Additional history exists CKD HGB USE SMARTSET 16755 07/18/202407/18, 07/18/2023, 04/27/2023, Additional history exists Diabetes Screening 07/18/2026 07/18/2023, 0 04/27/2023, 02/04/2023, Additional history exists Pneumococcal Vaccine: Pediatrics (0 to 5 Years) and At-Risk Patients (6 to 64 Years) (3 - PPSV23 or PCV20) 10/01/2026 10/01/2021, 05/26/2020 Lipid Panel 12/02/2027 12/01/2022, 03/0 02/2022, 11/03/2020, Additional history exists COLONOSCOPY-EVERY 5 YRS AGES 18-100 05/09/2028 05/09/2023, 05/09/2023 Zoster Vaccines Completed 01/06/2023, 10/28/2022 Colonoscopy Discontinued 05/09/2023, 05/09/2023 Colorectal Cancer Screening Discontinued Influenza Vaccine (FLU shot) Completed 06/12/2023, 06/17/2022, 06/17/2022, Additional history exists Cologuard Discontinued Fecal Occult Blood Test Discontinued GARDASIL-HPV IMMUNIZATION SERIES Aged Out No longer eligible based on patient's age to complete this topic MENINGOCOCCAL (MENACTRA/MENVEO) Aged Out No longer eligible based on patient's age to complete this topic Sigmoidoscopy Discontinued documented as of this encounter Medical Devices Implanted Type Area Air Bag Curer Device Identifier Shelf Expiration Date Model / Serial / Lot Implant Hi Prof Gel 750cc - [id number] Implanted:Qty: 1 on 07/02/[address] [facility] Left: Breast MENTOR DARVIN 04/01/2014 [id number] / [id number] / [id number] documented as of this encounter Advance Directives [...] Directives occurred with: Not Discussed Care Teams Plastics Technician Relationship Specialty Start Date End Date Susie White MD [address] [facility] [place] [address] PCP - General Internal Medicine 03/02/12 documented as of this encounter
--- OUTSIDE RECORDS SUMMARY | 2023-08-13 10:51 | External Medical Summary | Summary of Care ---
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 Name Role Phone Susie White MD Primary Care Provider Reason for Visit * Reason Comments Outpatient Testing Encounter Details Date Type Department Care Team (Late st Contact Info) Description 07/18/2023 11:40 AM EST Laboratory Laboratory Scenery [facility] [address] [place] [address] [facility] Scen[address] [place] [address] Malignant neoplasm of overlapping sites of both breasts in female, estrogen receptor positive Allergies No known active allergiesdocumented as of this encounter (statuses as of 07/18/2023) Medications Medication Sig Dispensed Refills Start Date [...] the evening. 60 Capsule 5 06/07/2023 Active Polyethylene Glycol 3350 17 GM Oral Packet (Miralax) Take 1 Packet by mouth in the morning. 0 Active Sennosides-Docusate Sodium 8.6-50 MG Oral Capsule Take 2 Tablets by mouth daily. Add 2 more at night if needed 0 07/18/2023 Active documented as of this encounter (statuses as of 07/18/2023) Active Problems Problem Noted Date Diagnosed Date [...] as of this encounter (statuses as of 07/18/2023) Resolved Problems Problem Noted Date Diagnosed Date [...] Infante MD PI CRC Name: Molly Chowdhury [facility] Contact PI or SURGICAL PHYSICIAN ASSISTANT regarding any serious medical event, if [...] Infante MD PI CRC Name: Molly Chowdhury [facility] Contact PI or SURGICAL PHYSICIAN ASSISTANT regarding any serious medical event, if new Rx given, ER visit, hospitalization, or billing question Diagnosis changed due to Research Module. Go to Snapshot for study details. 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 10/13/2019 documented as of this encounter (statuses as of 07/18/2023) Immunizations Name Administration Dates Next Due COVID-19 mRNA, LNP-s, No Pre serve, 2-Dose Series (Moderna) 02/02/2022,05/11/2021,10/04/2020,08/30 Covid-19, Mrna, Lnp-s, Pf, B ivalent, 50 Mcg, IM, 12 yrs and above (Moderna) 07/28/2022 Pneumococcal Conjugate Vacc, 13 Valent (Prevnar) 05/26/2020 Pneumococcal Polysaccharide PPV23 (Pneumovax) 10/01/2021 SEASONAL INFLUENZA, PF, 6 M & Above, IM , (FLULAVAL or FLUZONE) 06/17/2022,10/01/2021,05/26/2020 Season Influenza, Cell Culte r, 18+ Yrs, With Preserv (Flucelvax) 06/12/2023 Seasonal Influenza Virus Vac cine, Unspecified Formulation [...] Department Care Team (Latest Contact Info) Description 07/20/2023 9:45 AM [facility] Hematology Oncology [address] [address] [facility] [place] [address] [facility] [address] 08/18/2023 1:30 PM EST Hospital Encounter ENDO [facility], Endoscopy Room [facility] [address] [place], [place] [id number] Kelsey Goldstein, DO [address] [place] [address] 08/18/2023 1:30 PM EST - 08/18/2023 2:00 PM EST Surgery ENDO [facility], Endoscopy Room [facility] [address] [place] [phone] Kelsey Goldstein, DO [address] [place] [address] ESOPHAGOGASTRODUODENOSCOPY (EGD), FLEXIBLE, TRANSORAL, DIAGNOSTIC 10/11/2023 7:45 AM EST Office Visit Hematology/Oncol ogy [facility] [place] [address] [facility] [place] [address] Cory Infante MD [address] [facility] [place] [address] 11/17/2023 11:40 AM EDT Office Visit General Internal Medicine [facility] [place] [address] [facility] [place] [address] Susie White MD [address] [facility] [place] [address] 07/24/2024 11:00 AM EST Office Visit [address], [place] [address] Donita Cornejo PA-C [address] [place] [address] [place] [address] Pending Results Name Type Priority Associated Diagnoses Date /Time COMPREHENSIVE METABOLIC PANEL Lab STAT Malignant neoplasm of overlapping sites of both breasts in female, estrogen receptor positive 07/18/2023 11:34 AM EST Scheduled Procedures Name Priority Associated Diagnoses Date/Ti ia ESOPHAGOGASTRODUODENOSCOPY ( EGD), FLEXIBLE, TRANSORAL, DIAGNOSTIC History [...] 2023 07/28/2022, 02/02/2022, 05/11/2021, Additional history exists GFR 10/26/2023 04/27/2023, 01/08, 12/01/2022, Additional history exists Albumin/Creatinine Ratio 10/29/2023 10/28/2022, 03/0 02/2022 Depression Screening 10/29/2023 10/28/2022 DTaP,Tdap,and Td Vaccines (2 - Td or Tdap) 11/03/2023 11/02/2013 CKD PHOS USE SMARTSET 82357 12/02/202311/07, 10/12/2021, 02/07/2020 CKD HGB USE SMARTSET 55755 04/27/202407/18, 07/18/2023, 04/27/2023, Additional history exists Diabetes Screening 04/27/2026 04/27/2023, [...] this encounter Medical Devices Implanted Type Area Invasive Physician Device Identifier Shelf Expiration Date Model / Serial / Lot Implant Hi Prof Gel 750cc - [id number] Implanted:Qty: 1 on 07/02/2013 at [facility] Left: Breast MENTOR DARVIN 04/01/2014 [id number] / [id number] / [id number] documented as of this encounter Procedures Procedure Name Priority Date/Time Associated Diagnosis Comments DIFFERENTIAL, AUTOMATED STAT 07/18/2023 11:34 AM EST Malignant neoplasm of overlapping sites of both breasts in female, estrogen receptor positive CBC STAT 07/18/2023 11:34 AM EST Malignant neoplasm of overlapping sites of both breasts in female, estrogen receptor positive CBC STAT 07/18/2023 11:34 AM EST Malignant neoplasm of overlapping sites of both breasts in female, estrogen receptor positive documented in this encounter Results * DIFFERENTIAL, AUTOMATED (07/18/2023 11:34 AM EST) WBC 4.52 4.00 - 10.80 K/uL 07/18/2023 11:39 AM EST [facility] 56[facility]02 Neutrophils % 55.5 40.0 - 75.0 % 07/18/2023 11:39 AM EST [facility] 56-02 Lymphocytes % 30.8 18.0 - 42.0 % 07/18/2023 11:39 AM EST [facility] 56-02 Monocytes % 10.6 1.0 - 11.0 % 07/18/2023 11:39 AM [facility] 56-02 Eosinophils % 2.2 0.0 - 6.0 % 07/18/2023 11:39 AM [facility] 56-02 Basophils % 0.9 0.0 - 2.0 % 07/18/2023 11:39 AM [facility] 56-02 Absolute Neutrophils 2.51 1.80 - 7.70 K/uL 07/18/2023 11:39 AM [facility] 56-02 Absolute Lymphocytes 1.39 1.00 - 4.80 K/ul 07/18/2023 11:39 AM [facility] 56-02 Absolute Monocytes 0.48 0.00 - 1.10 K/uL 07/18/2023 11:39 AM [facility] 56-02 Absolute Eosinophils 0.10 0.00 - 0.70 K/uL 07/18/2023 11:39 AM [facility] 56-02 Absolute Basophils 0.04 0.00 - 0.20 K/uL 07/18/2023 11:39 AM [facility] 56-02 Blood Venous blood specimen / Unknown Venipuncture / Unknown 07/18/2023 11:34 AM EST 07/18/2023 11:34 AM EST Cory Infante MD LAB BLOOD ORDERABLES [facility] [address]- [address] [place] [address] * CBC (07/18/2023 11:34 AM EST) WBC 4.52 4.00 - 10.80 K/uL 07/18/2023 11:39 AM [facility] 56-02 RBC 3.82 3.85 - 5.15 M/uL 07/18/2023 11:39 AM [facility] 56-02 HGB 12.4 12.0 - 15.3 g/dL 07/18/2023 11:39 AM [facility] 56-02 HCT 37.9 36.0 - 45.2 % 07/18/2023 11:39 AM [facility] 56-02 MCV 99.2 81.5 - 97.5 fL 07/18/2023 11:39 AM EST [address] MCH 32.5 27.0 - 34.0 pg 07/18/2023 11:39 AM EST [address] MCHC 32.7 32.0 - 36.0 g/dL 07/18/2023 11:39 AM EST [place] [address] RDW 13.6 11.5 - 15.5 % 07/18/2023 11:39 AM EST [address] PLT 289 140 - 400 K/uL 07/18/2023 11:39 AM EST [address] MPV 9.8 6.6 - 11.1 fL 07/18/2023 11:[address] Blood Venous blood specimen / Unknown Venipuncture / Unknown 07/18/2023 11:34 AM EST 07/18/2023 11:34 AM EST Cory Infante MD LAB BLOOD ORDERABLES [place] [address] [place] [address] documented in this encounter Visit Diagnoses Diagnosis Malignant neoplasm of overlapping sites of both breasts in female, estrogen receptor positive History of gastric ulcer Personal history of other diseases of digestive system Malignant neoplasm of overlapping sites of both [...] Directives occurred with: Not Discussed Care Teams Dynamite Packing Machine Feeder Relationship Specialty Start Date End Date Susie White MD [address] [facility] [place] [address] PCP - General Internal Medicine 03/02/12 documented as of this encounter
--- OUTSIDE RECORDS SUMMARY | 2023-08-13 10:51 | External Medical Summary | Summary of Care ---
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 [facility] Reason for Referral Malignant Oncology (Solid Organ Cancer) Comments 52-year-old the female, a case of right breast multifocal inferior ductal and lobular carcinoma, S/P bilateral mastectomies in 04/2012. T3 N3a, stage IIIC. S/P bilateral oophorectomies. S/P dose dense AC followed by weekly Paclitaxel and the adjuvant radiation treatment. Tamoxifen between January 2013 -October of 2019. She had laparoscopic cholecystectomy in September of 2019, peripancreatic lymph node showed metastatic breast cancer. Treatment change to letrozole and ribociclib in 10/2019. She was seen by Dr. Peters earlier in January 2020. Lately she had 2 episodes of partial small-bowel obstruction, treated conservatively. Upper GI endoscopy done on 06/07/2023 showed multiple nonbleeding gastric ulcers. Biopsy from the gastric ulcer showed small foci of metastatic adenocarcinoma consistent with breast primary along with chronic gastritis. Latest PET-CT scan done on 07/06/2023 showed focal activity in the gastric pylorus. No other metabolic active disease noted anywhere else. Would like to have opinion from Thanks. Dr. 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 0 Active documented as of this encounter (statuses as of 07/12/2023) Active Problems Problem Noted Date Diagnosed Date [...] as of this encounter (statuses as of 07/12/2023) Resolved Problems Problem Noted Date Diagnosed Date [...] Name: Molly Chowdhury [facility] Contact PI or ZINC MINER BLASTING regarding any serious medical event, if new [...] Infante MD PI CRC Name: Molly Chowdhury [facility] Contact PI or [employer] MINER [employer]ING regarding any serious medical event, if new Rx given, ER visit, hospitalization, or billing question Diagnosis changed due to Research Module. Go to Snapshot for study details. 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 10/13/2019 documented as of this encounter (statuses as of 07/12/2023) Immunizations Name Administration Dates Next Due COVID-19 [...] Sign Reading Time Taken Comments Blood Pressure 125/77 07/12/2023 7:58 AM EST Pulse 70 07/12/2023 7:58 AM EST Temperature - - Respiratory Rate 16 07/12/2023 7:58 AM EST Oxygen Saturation 99% 07/12/2023 7:58 AM EST Inhaled Oxygen Concentration - - Weight 80.6 kg (177 lb 11.2 oz) 07/12/2023 7:58 AM EST Height 170.8 cm (5' 7.25") 07/12/2023 7:58 AM ES T Body Mass Index 27.63 07/12/2023 7:58 AM EST documented in this encounter Progress Notes * Cory Infante MD - 07/12/2023 8:15 AM EST NAME: Shante Cordoba 1970 52-year-old female, DIAGNOSIS: [...] 100% malignamt cells, weak to intermediate positive, CT negative, Her2/Maximilian 2+. FISH -ve. CURRENT TREATMENT: [...] in January, (no hysterectomy) -tamoxifen between January [id number] 2020. Diagnosis of right breast: She says [...] ER strongly positive in 100% malignant cells, CT moderatelypositive in 50% malignant cells, [id number] negative. - Core needle biopsy of 4 o'clock lesion --> Invasive lobular carcinoma, grade 2, measuring 0.6 cm on the slide, ER strongly positive in 100% malignant cells, CT moderately positive in 50% malignant cells. [id number] negative. She is otherwise doing well, has [...] She was seen by Dr. Farmer at [facility], underwent bronchoscopic evaluation (01/28/2016, biopsy from the [...] 100% of cells, intermediate to weak positive, CT negative, Her2/Maximilian equivocal (2+),FISH negative. -gallbladder showed [...] and hilar lymphadenopathy OTHER IMPORTANT HISTORY: -Sarcoidosis - Recently she started having abdominal pain, nausea, vomiting, she was admitted at [facility], I reviewed hospital records. CT scan of [...] -WBC 2400, H&H of 12.2/35.0, Platelet count [id number]. -ANC 1100. -Calcium 8.5, phosphorus 3.4, magnesium 1.8. -normal LFT, -urine culture negative. She was treated conservatively with improvement of the abdominal pain, She had another episode of partial small-bowel obstruction, she was admitted at [facility] in late June 2023. She was there for about 3 days and then she recovered with the conservative treatment She has come the clinic for the follow-up, she says that she is eating small amount of the food, also takes MiraLax on regular basis, she also had upper and lower GI endoscopic evaluation earlier, multiple small nonbleeding gastric ulcers noted, biopsy showed minute foci of metastatic breast cancerin addition to the gastritis, she is on omeprazole twice a day. She does come some nonspecific upper abdominal discomfort especially after eating. No nausea or vomiting at this time, no diarrhea, she moves her bowel once a day. No new cardiac or pulmonary symptoms. Currently she is on letrozole and ribociclib, tolerated well. Current weight around 177 lb. Slight weight loss noted. No fever, no infections. No increasing headache. Stable right upper extremity lymphedema. No leg edema. No increasing neuropathy symptoms Past Medical History: Diagnosis Date Breast cancer (HCC) invasive ductal Hematuria, microscopic 2014 intermittent resolved now Sarcoidosis Past Surgical History: Procedure Laterality Date BREAST CAPSULECTOMY, PERIPROSTHETIC 07/02/2013 PERIPROSTHETIC CAPSULECTOMY BREAST performed by Delio Chan MD at [facility] BREAST RECONSTRUCTION 04/21/2012 I 04/21/2012 mmediate reconstruction of bilateral breasts with adjustable implant to be utilized for expansion and acellular dermal matrix 04/21/12 Dr. Chan at [facility] BRONCHOSCOPY, DIAGNOSTIC N/A 01/28/2016 BRONCHOSCOPY DIAGNOSTIC WITH OR WITHOUT WASHING performed by Bill Farmer MD at [place] [facility] COLONOSCOPY, DIAGNOSTIC (RECTUM) 05/09/2023 biopsies show benign polyp/recall 5 years/COLONOSCOPY FLEXIBLE PROXIMAL DIAGNOSTIC performed by Raheem Hagen MD at ENDOSCOPY [facility] DILATION AND CURETTAGE (D&C) 06/2008 D&C at [place], [place] EGD, FLEXIBLE, DIAGNOSTIC 11/23/2018 gastritis/ESOPHAGOGASTRODUODENOSCOPY (EGD), FLEXIBLE, TRANSORAL, DIAGNOSTIC performed by Lavelle Ruiz MD at ENDOSCOPY [facility] EGD, FLEXIBLE, DIAGNOSTIC 06/07/2023 ESOPHAGOGASTRODUODENOSCOPY (EGD), FLEXIBLE, TRANSORAL, DIAGNOSTIC performed by Kelsey Goldstein DO at ENDOSCOPY [facility] EGD, FLEXIBLE,W/ENDOSCOPIC US 10/03/2019 lymph node, peripancreatic bx - metastatic cancer, IPMN / INPT [facility] ERCP 10/03/2019 choledocholithiasis / INPT [facility] EXPLORATION OF ABDOMEN 01/14/2014 EXPLORATORY LAPAROTOMY performed by Danae Ceron MD at [facility] LAPAROSCOPY; CHOLECYSTECTOMY 09/2019 LAPAROSCOPY;RMV ADNEXAL STRUCT 01/14/2014 LAPAROSCOPIC OOPHORECTOMY AND OR SALPINGECTOMY performed by Danae Ceron MD at [facility] MASTECTOMY, MODIFIED RADICAL 04/21/2012 04/21/2012 Right mastectomy with right axillary lymph node dissectiona nd left prophylactic mastectomy 04/21/12 Dr. Carbajal at [facility] MASTECTOMY,RADICAL 2012 OTHER (INFORMATION) 11/1986 Left ankle surgery, [place], [place] OVARY/TUBAL CANCR RESEC W/SALPINGO-OOPHEREC 01/14/2014 REMOV GLO ROBI DEQUAN ACC DEV,WITH 02/18/2014 Removal of A port left chest 02/18/14 Dr. Carbajal in the clinic REMOVAL OF OVARY/OVIDUCT(S) 2013 preventive for breast cancer , uterus and cervix intact REPLACE TISSUE PLANT TAXONOMIST 07/02/2013 REPLACEMENT EXPANDERS WITH PERMANENT PROSTHESIS performed by Delio Chan MD at [facility] SKIN TISSUE REARRANGEMENT 07/02/2013 SKIN TISSUE REARRANGEMENT performed by Delio Chan MD at [facility] SKIN TISSUE REARRANGEMENT, ADD-ON 07/02/2013 SKIN TISSUE REARRANGEMENT, ADD-ON performed by Delio Chan MD at [facility] TOTAL ABD HYSTERECTOMY W/WO REMOVAL OF TUBE(S) [...] a 28 day cycle. 42 Each 5 Omeprazole 20 MG Oral Capsule Delayed Release (PriLOSEC) Take 1 Capsule by mouth in the morning and1 Capsule in the evening. 60 Capsule 5 Polyethylene Glycol 3350 17 GM Oral Packet (Miralax) Take 1 Packet by mouth in the morning. Sennosides-Docusate Sodium 8.6-50 MG Oral Capsule Take 2 Tablets by mouth daily. No current facility-administered medications for this visit. On exam: BP 125/77 (BP Site: Left Arm, BP Position: Sitting, BP Cuff Size: Large) | Pulse 70 | Resp 16 | Ht 1.708 m (5' 7.25") | Wt 80.6 kg (177 lb 11.2 oz) | LMP 01/06/2013 | SpO2 99% | BMI 27.63 kg/m | BSA 1.96 m Constitutional: Patient is alert, cooperative and oriented [...] correlation with urinalysis to evaluate for infection. CT scan of the abdomen pelvis on 07/03/2023: 1. Small bowel obstruction with a transition point in the right lower quadrant. There is fecalization of the bowel just proximal to the transition point suggesting an acute on chronic obstruction. 2. Mild left hydronephrosis. No visual is obstructing nephrolithiasis. 3. A small amount of free fluid in the abdomen and pelvis is nonspecific. PET CT scan done on 07/06/2023: - Focal metabolic activity noted in the gastric pylorus. This is the same site where she had ulcer and ulcer also showed metastatic breast cancer. - No metabolically active lymphadenopathy or other suspicious findings noted anywhere else - Trace pleural effusion and fluid in the abdomen noted which could be related to the recent IV fluid when she was admitted for partial small-bowel obstruction. LABORATORY DATA: Blood workup done on 07/05/2023: -WBC 3000, H&H of 11.3/33, Platelet count of 160,000 -BUN/Creat: 8/0.95 -normal liver function test. -lipase --> 25 -Calcium 8.4 ASSESSMENT AND PLAN: 52-year-old female, a case [...] late September 2019, she was admitted at [facility] for symptomatic cholecystitis, underwent laparoscopic cholecystectomy, she also had some periportal lymphadenopathy, biopsy from that lymph node showed metastatic breast cancer, ER 100% positive in malignant cells (weak to intermediate), CT negative, Her2/Maximilian 2+. FISH negative. PET-CT scan, [...] No active urinarysymptoms, urinalysis was unremarkable. Recently in April 2023 she was admitted at [facility] for high-grade small-bowel obstruction, most likely because of some adhesions. She had a cholecystectomy and oophorectomy in the past (laparoscopically) treated conservatively. Now improvement of the abdominal symptoms noted. Tumors later, she was once again admitted for the same problem in June 2023, she had partial small-bowel obstruction, treated conservatively and then she recovered well Subsequently she had PET-CT scan, I reviewed with regarding PET-CT scan findings. She also had upper GI endoscopy which showed gastric ulcer, biopsy showed small focus of metastaticbreast cancer. PET-CT scan does not show any obvious metastatic disease anywhere else other than some increased uptake in the pylorus. At present will continue letrozole and ribociclib. We talked about having 2nd opinion, she says she was seen at [facility] by and she can go overthere for 2nd opinion. I would like to get upper GI endoscopic evaluation follow-up in August of 2023. Planning to see her in 3 months but will change based on recommendations from Dr. Lorraine Infante Hem/Onc (This note was completed using the dictation program Fluency Direct. As such, there may be misspellings word substitutions, or other variations that should not change the essence of the clinical content of this encounter note. If there is need for further clarification, please direct questions to the provider listed above.) documented in this encounter Nursing Notes * Ania Teague, [facility] - 07/12/2023 7:59 AM EST Patient identifed by name and birthdate Do you have any concerns about pain management for today's visit? No Living Will or Advance Directive for Health Care as noted on the problem list. [facility] is a way you can talk to your provider on line through e-mail. Would you like to sign up? I can activate it for you? ALREADY ACTIVE Filed Vitals: 07/12/23 0758 BP: 125/77 Pulse: 70 Resp: 16 SpO2: 99% Weight: 80.6 kg (177 lb 11.2 oz) Height: 1.708 m (5' 7.25") Patient was instructed to not get up [...] Department Care Team (Latest Contact Info) Description 07/18/2023 11:00 AM EST Office Visit General Internal Medicine [place] [place] [place] [address] [facility] [place] [address] Susie White MD [address] [facility] [place] [address] 07/20/2023 9:45 AM EST Pharmacy Pharmacy Hematology Oncology [facility] [address] [place] [address] [facility] Hem/Onc [address] [place] [address] 08/18/2023 1:30 PM EST Hospital Encounter ENDO [facility], Endoscopy Room [facility] [address] [place] [phone] Kelsey Goldstein, DO [address] [place] [phone] 08/18/2023 1:30 PM EST - 08/18/2023 2:00 PM EST Surgery ENDO [facility], Endoscopy Room [facility] [address] [place] [phone] Kelsey Goldstein, DO [address] [place] [phone] ESOPHAGOGASTRODUODENOSCOPY (EGD), FLEXIBLE, TRANSORAL, DIAGNOSTIC 10/11/2023 7:45 AM EST [facility] [address] [place], [place] [address] Cory Infante MD [address] [place], [place] [address] 07/24/2024 11:00 AM EST Office Visit [address] [place] [address] Donita Cornejo PA-C [address] [place] [address] [place] [address] Scheduled Orders Name Type Priority Associated Diagnoses Orde r Schedule UPPER GI ENDOSCOPY Gastro Upper Routine Malignant neoplasm of overlapping sites of both breasts in female, estrogen receptor positive 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) Ordered: 07/12/2023 Scheduled Procedures Name Priority Associated Diagnoses Date/Ti me ESOPHAGOGASTRODUODENOSCOPY ( EGD), FLEXIBLE, TRANSORAL, DIAGNOSTIC History of gastric ulcer Malignant neoplasm of overlapping sites of both breasts in female, estrogen receptor positive 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) 08/18/2023 1:30 PM EST COLONOSCOPY FLEXIBLE PROXIMA L DIAGNOSTIC Recall History of colonic polyps Scheduled Referrals Name Type Priority Associated Diagnoses Orde r Schedule HEMATOLOGY/ONCOLOGY REFERRAL OP Referral Within 10 days (routine) Malignant neoplasm of overlapping sites of both breasts in female, estrogen receptor positive 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) Ordered: 07/12/2023 Health Maintenance Due Date Last Done Comments [...] Tdap) 11/03/2023 11/02/2013 CKD PHOS USE SMARTSET 79090 12/02/2023 04/2 01/2023, 10/12/2021, 02/07/2020 CKD HGB USE SMARTSET 29121 04/27/202404/27, 04/27/2023, 02/04/2023, Additional history exists Diabetes Screening 04/27/2026 04/27/2023, 0 02/04/2023, 12/01/2022, Additional history exists Pneumococcal Vaccine: Pediatrics (0 to 5 Years) and At-Risk Patients (6 to 64 Years) (3 - PPSV23 or PCV20) 10/01/2026 10/01/2021, 05/26/2020 Lipid Panel 12/02/2027 12/01/2022, 030 02/2022, 11/03/2020, Additional history exists COLONOSCOPY-EVERY 5 [...] this encounter Medical Devices Implanted Type Area Writer Producer Device Identifier Shelf Expiration Date Model / Serial / Lot Implant Hi Prof Gel 750cc - [id number] Implanted:Qty: 1 on 07/02/2013 at [place] [facility] Left: Breast MENTOR DARVIN 04/01/2014 [id number] / [id number] / [id number] documented as of this encounter Visit Diagnoses Diagnosis Malignant neoplasm of overlapping sites of both breasts in female, estrogen receptor positive- Primary 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
--- OUTSIDE RECORDS SUMMARY | 2023-08-13 10:51 | External Medical Summary ---
Author Name Unknown Address Unknown Organization K[facility] [place] [address] Laboratory Report Ordering Provider Test Date Status RISA JENKINS 07/18/2023 11:34:17 Final Observation Date Value Abnormality Reference (Units ) Status SYNC LEUKOCYTES IN BLOOD BY AUTOMATED COUNT 07/18/2023 11:34:17 4.52 4.00-10.80 (K/uL) Final Segs 07/18/2023 11:34:17 55.5 40.0-75.0 (%) Final Lymphs % 07/18/2023 11:34:17 30.8 18.0-42.0 (%) Final Monos 07/18/2023 11:34:17 10.6 1.0-11.0 (%) Final Eosinophils 07/18/2023 11:34:17 2.2 0.0-6.0 (%) Final Basos 07/18/2023 11:34:17 0.9 0.0-2.0 (%) Final Absolute Segs 07/18/2023 11:34:17 2.51 1.80-7.70 (K/uL) Final Lymphs, absolute 07/18/2023 11:34:17 1.39 1.00-4.80 (K/ul) Final Monos, Abs 07/18/2023 11:34:17 0.48 0.00-1.10 (K/uL) Final Eos, Abs 07/18/2023 11:34:17 0.10 0.00-0.70 (K/uL) Final Basos, Abs 07/18/2023 11:34:17 0.04 0.00-0.20 (K/uL) Final Performing Location [facility] [place] [address]
--- OUTSIDE RECORDS SUMMARY | 2023-08-13 10:51 | External Medical Summary ---
Author Name Unknown Address Unknown Organization [facility] [address] [place] [address] Laboratory Report Ordering Provider Test Date Status RISA JENKINS 07/18/2023 11:34:17 Final Observation Date Value Abnormality Reference (Units ) Status BUN 07/18/2023 11:34:17 13 6-20 (mg/dL) Final Creatinine 07/18/2023 11:34:17 1.3 Above high normal 0.5-1.0 (mg/dL) Final Glomerular filtration rate/1.73 sq M.predicted [Volume Rate/Area] in Serum, Plasma or Blood by Creatinine-based formula (CKD-EPI) 07/18/2023 11:34:17 52 Below low normal >=60 (mL/min) Final eGFR is calculated based on the CKD-EPI 2020 equation SODIUM 07/18/2023 11:34:17 138 135-146 (m mol/L) Final Potassium 07/18/2023 11:34:17 4.4 3.5-5.1 (m mol/L) Final Cl 07/18/2023 11:34:17 105 98-107 (mm ol/L) Final CO2 07/18/2023 11:34:17 24 22-32 (mmo l/L) Final Anion gap 07/18/2023 11:34:17 9 7-15 (mmol /L) Final Glucose 07/18/2023 11:34:17 93 70-120 (mg /dL) Final Albumin 07/18/2023 11:34:17 4.2 3.8-5.0 (g /dL) Final AST (Aspartate aminotransferase) 07/18/2023 11:34:17 19 10-35 (U/L) Final Alk Phos 07/18/2023 11:34:17 50 35-130 (U/ L) Final Bilirubin, Total 07/18/2023 11:34:17 0.3 <=1 .2 (mg/dL) Final Calcium 07/18/2023 11:34:17 9.7 8.4-10.2 ( mg/dL) Final Protein 07/18/2023 11:34:17 6.6 6.0-8.3 (g /dL) Final ALT (Alanine aminotransferase) 07/18/2023 11:34:17 19 10-35 (U/L) Final Performing Location [facility] [address] [place] [address]
--- OUTSIDE RECORDS SUMMARY | 2023-08-13 10:51 | External Medical Summary | Summary of Care ---
Author Name Unknown Organization [facility] Address [address] [place] [address] Phone [phone] Care Team Providers Care Corn Husker Machine Operator Name Role Phone Susie White MD Primary Care Provider [phone] Reason for Visit * Reason Comments Medication Management Encounter Details Date Type Department Care Team (Late st Contact Info) Description 07/20/2023 9:45 AM [facility] Pharmacy Pharmacy Hematology Oncology [facility] [address] [place] [address] [facility] [place] [facility] Clinic Hem/Onc [address] [place] [address] Malignant neoplasm of overlapping sites of both breasts in female, estrogen receptor positive * Allergies No known active allergiesdocumented as of this encounter (statuses as of 07/20/2023) Medications Medication Sig Dispensed Refills Start Date [...] as of this encounter (statuses as of 07/20/2023) Active Problems Problem Noted Date Diagnosed Date [...] as of this encounter (statuses as of 07/20/2023) Resolved Problems Problem Noted Date Diagnosed Date [...] [facility] Contact PI or NECKTIE MAKER regarding any serious medical event, if [...] [facility] Contact PI or NECKTIE MAKER regarding any serious medical event, if new Rx given, ER visit, hospitalization, or billing question Diagnosis changed due to Research Module. Go to Snapshot for study details. 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 10/13/2019 documented as of this encounter (statuses as of 07/20/2023) Immunizations Name Administration Dates Next Due COVID-19 mRNA, LNP-s, No Pre serve, 2-Dose Series (Moderna) 02/02/2022,05/11/2021,10/04/2020,08/30 Covid-19, Mrna, Lnp-s, Pf, B ivalent, 50 Mcg, IM, 12 yrs and above (Moderna) 07/28/2022 Pneumococcal Conjugate Vacc, 13 Valent (Prevnar) 05/26/2020 Pneumococcal Polysaccharide PPV23 (Pneumovax) 10/01/2021 Season Influenza, Cell Cultu re, 18+ Yrs, With Preserv (Flucelvax) 06/12/2023 Seasonal [...] this encounter Progress Notes * Radha Toscano, [facility] - 07/20/2023 12:31 PM EST MEDICATION THERAPY MANAGEMENT RIBOCICLIB (KISQALI) TREATMENT PROGRESS NOTE Shante Cordoba (Katie) [id number] Patient Phone Numbers Communication: Spoke to: Patient Current Treatment: Medication: Ribociclib (Kisqali) Indication: ER+/KS+/HER2- met breast cancer Dose: 400mg daily D1-21 every 28 days ( 01/11/20) Administration: +/- food Start Date: 11/28/2019 Primary Oncologist: Dr Yeimy Infante Supportive Care Meds: Letrozole Ondansetron Prochlorperazine Current cycle: 07/27 - 08/16 Next cycle: 08/24 - 09/13 (anticipated) Interval History: C1 stopped early due to diarrhea C2 stopped early due to grade 3 neutropenia Per previous discussion with Dr. Infante, lab monitoring extended to q3mo due to pt financial concern Admitted to [facility] 04/21/23-04/24/23 and 07/03/23-07/05/23 for small bowel obstruction Per OV 07/12/23, pt has mild disease progression but will continue current therapy. Pt to see [facility] for 2nd opinion Per MyG 07/13/23, 2nd opinion appt scheduled 09/07/23 Per PCP OV 07/18/23, pt to start Senna-S for constipation Confirmed cycle dates as above No concerns, tolerating therapy well Changes to medication list since last visit? Yes, Senna-S - no DDI Assessment and Plan: ANC improving to WNL AST declining to WNL All other labs stable Continue current therapy and q3mo labs (next due mid-October 2022 with OV) Assessment of compliance: compliant Assessment of adverse effects attributed to drug therapy: Edema - absent Rash - absent Nausea/Vomiting - absent Diarrhea - absent Arthralgias - absent Dose adjustment needed based on lab or adverse drug reaction? No Follow up: 6 weeks Radha Toscano, PharmD, BCOP Clinical Pharmacist, [facility] Oral Chemotherapy [facility] 07/20/2023, 12:40 PM Pertinent labs: Latest Reference Range & Units 02/04/23 12:33 04/27/23 12:18 07/18/23 11:34 WBC 4.00 - 10.80 K/uL 3.84 (L) 3.26 (L) 4.52 HGB 12.0 - 15.3 g/dL 13.4 13.9 12.4 HCT 36.0 - 45.2 % 41.3 39.7 37.9 MCV 81.5 - 97.5 fL 103.0 97.1 99.2 PLT 140 - 400 K/uL 191 193 289 Absolute Neutrophils 1.80 - 7.70 K/uL 1.89 1.42 (L) 2.51 Serum creatinine: 1.3 mg/dL (H) 07/18/23 1134 Estimated creatinine clearance: 57.2 mL/min (A) Latest Reference Range & Units 02/04/23 12:33 04/27/23 12:18 07/18/23 11:34 Albumin 3.8 - 5.0 g/dL 4.6 4.6 4.2 AST 10 - 35 U/L 20 36 (H) 19 ALT 10 - 35 U/L 26 34 19 Alkaline Phosphatase 35 - 130 U/L 53 58 50 Bilirubin, Total <=1.2 mg/dL 0.3 0.3 0.3 [...] monitoring - Medication Requires monitoring Pharmacist Intervention(s): Drug Interaction Screen, Lab monitoring, and Toxicity monitoring Magnitude of Intervention: Monitoring with direction (Level 1) documented in this encounter Plan of Treatment Upcoming Encounters Date Type Department Care Team (Latest Contact Info) Description 08/18/2023 1:30 PM EST Hospital Encounter ENDO [facility], Endoscopy Room [facility] [address] [place] [phone] Kelsey Goldstein, [address] [place] [address] 08/18/2023 1:30 PM EST - 08/18/2023 2:00 PM EST Surgery ENDO [facility], Endoscopy Room [facility] [address] [place] [phone] Kelsey Goldstein, [address] [place] [address] ESOPHAGOGASTRODUODENOSCOPY (EGD), FLEXIBLE, TRANSORAL, DIAGNOSTIC 08/31/2023 9:45 AM EST Pharmacy Pharmacy Hematology Oncology [facility] [address] [place] [address] [facility] [place] [facility] Clinic Hem/Onc [address] [place] [address] 10/11/2023 7:45 AM EST Office Visit Hematology/Oncol ogy [facility] [place] [address] [place] [address] Cory Infante MD [address] [facility] [place] [address] 11/17/2023 11:40 AM EDT Office Visit General Internal Medicine [facility] [place] [address] [facility] [place] [address] Susie White MD [address] [facility] [address] 07/24/2024 11:00 AM EST Office Visit [address], [place] [address] Donita Cornejo PA-C [address] [place] [address] [place] [address] Scheduled Procedures Name Priority Associated Diagnoses Date/Ti [...] Hepatitis C Screening 1988 COVID-19 Vaccine ( - season) 2023 07/28/2022, 02/02/2022, 05/11/2021, Additional history exists Albumin/Creatinine Ratio 10/29/2023 10/28/2022, 03/0 02/2022 Depression Screening 10/29/2023 10/28/2022 DTaP,Tdap,and Td Vaccines (2 - Td or Tdap) 11/03/2023 11/02/2013 CKD PHOS USE SMARTSET 00559 12/02/2023 04/2 01/2023, 10/12/2021, 02/07/2020 GFR 01/17/2024 07/18/2023, 04/09, 02/04/2023, Additional history exists CKD HGB USE SMARTSET 74466 07/18/202407/18, 07/18/2023, 04/27/2023, Additional history exists Diabetes [...] this encounter Medical Devices Implanted Type Area Operational Test Mechanic Device Identifier Shelf Expiration Date Model / Serial / Lot Implant Hi Prof Gel 750cc - [id number] Implanted:Qty: 1 on 07/02/2013 at [place] [facility] [place] Left: Breast MENTOR DARVIN 04/01/2014 [id number] / [id number] / [id number] documented as of this encounter Visit Diagnoses Diagnosis Malignant neoplasm of overlapping sites of both breasts in female, estrogen receptor positive- Primary History of gastric ulcer Personal history of [...] Directives occurred with: Not Discussed Care Teams Corn Husker Machine Operator Relationship Specialty Start Date End Date Susie White MD [address] [facility] [place] [address] PCP - General Internal Medicine 03/02/12 documented as of this encounter
--- OUTSIDE RECORDS SUMMARY | 2023-08-13 10:51 | External Medical Summary | Summary of Care ---
Author Name Unknown Organization [facility] Address [address] [facility] [place] [address] Phone [phone] Care Team Providers Care Finance Teacher Name Role Phone Susie White MD Primary Care Provider [phone] Reason for Visit * Reason Onset Date Comments Hospital Follow-Up [facility] d/c 06/09 03/30 Hospital Follow-Up 07/18/2023 Encounter Details Date Type Department Care Team (Late st Contact Info) Description 07/18/2023 11:00 AM EST Office Visit General Internal Medicine [facility] [address] [place] [address] Susie White MD [address] [facility] [place] [address] Small bowel obstruction (HCC)*; Hospital discharge follow-up; 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); H/O small bowel obstruction; Malignant neoplasm of overlapping sites of both breasts in female, estrogen receptor positive ; Intra-abdominal lymphadenopathy; Hyperlipidemia with target LDL less than 130; Family hx of melanoma; Adjustment insomnia; Liver lesion; Microscopic hematuria; Post-mastectomy lymphedema syndrome; Sarcoidosis; Stage 3a chronic kidney disease Allergies No known active allergiesdocumented as of this encounter (statuses as of 08/03/2023) Medications Medication Sig Dispensed Refills Start Date [...] at night if needed 0 07/18/2023 Active Sennosides-Docusate Sodium 8.6-50 MG Oral Capsule Take 2 Tablets by mouth daily. 0 3 Discontinue d(Refill) documented as of this encounter (statuses as of 08/03/2023) Active Problems Problem Noted Date Diagnosed Date [...] as of this encounter (statuses as of 08/03/2023) Resolved Problems Problem Noted Date Diagnosed Date [...] B47 PI Name: Cory Infante MD PI [facility] Name: Molly Chowdhury [facility] Contact PI or SHIFT ENGINEER regarding any serious medical event, if new [...] B47 PI Name: Cory Infante MD PI [facility] Name: Molly Chowdhury [facility] Contact PI or SHIFT ENGINEER regarding any serious medical event, if new Rx given, ER visit, hospitalization, or billing question Diagnosis changed due to Research Module. Go to Snapshot for study details. 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 10/13/2019 documented as of this encounter (statuses as of 08/03/2023) Immunizations Name Administration Dates Next Due COVID-19 [...] Sign Reading Time Taken Comments Blood Pressure 118/74 07/18/2023 10:52 AM EST Pulse 47 07/18/2023 10:52 AM EST Temperature 36.8 C (98.3 F) 07/18/2023 10:[address] Respiratory Rate - - Oxygen Saturation 98% 07/18/2023 10:52 AM EST Inhaled Oxygen Concentration - - Weight 81.6 kg (180 lb) 07/18/2023 10:52 AM EST Height - - Body Mass Index 27.98 07/12/2023 7:58 AM EST documented in this encounter Progress Notes * Susie White MD - 07/18/2023 11:08 AM EST SUBJECTIVE: Shante Cordoba is a 52 year old female. Chief Complaint Patient presents with Hospital Follow-Up [facility] d/c 07/05/23 HPI: 52-year-old female with PMH significant for left multifocal breast cancer stage IIIC s/p bilateral mastectomy with reconstruction and undergoing chemo presents here for hospital follow up. Pt was having bloating , abdominal pain and N/V after dinner 2 weeks ago got worse and went to ER for eval . Presented to hospital on 07/03/23 . She was found to have acute on chronic SBO with transition point . She was then admitted and treated with conservative measures . Labs were overall normaland Imaging CT with bowel obstruction with transition point at proximal part . She did well on conservative measures and eventually went home on 07/05/23 . She was seen by surgery . Rest of the hospital course unremarkable . She was sent home on 07/05/23 on home meds , senna and miralax daily . Since discharge feeling better . Hospital records reviewed and updated. The patient's medication list was reviewed and updated as needed. 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 Chan at [facility] BRONCHOSCOPY, DIAGNOSTIC N/A 01/28/2016 BRONCHOSCOPY DIAGNOSTIC WITH OR WITHOUT WASHING performed by Bill Farmer MD at [place] [facility] COLONOSCOPY, DIAGNOSTIC (RECTUM) 05/09/2023 biopsies show benign polyp/recall 5 years/COLONOSCOPY FLEXIBLE PROXIMAL DIAGNOSTIC performed by Raheem Hagen MD at ENDOSCOPY [facility] DILATION AND CURETTAGE (D&C) 06/2008 D&C at [place], [place] EGD, FLEXIBLE, DIAGNOSTIC 11/23/2018 gastritis/ESOPHAGOGASTRODUODENOSCOPY (EGD), FLEXIBLE, TRANSORAL, DIAGNOSTIC performed by Lavelle Ruiz MD at ENDOSCOPY [facility] EGD, FLEXIBLE, DIAGNOSTIC 06/07/2023 ESOPHAGOGASTRODUODENOSCOPY (EGD), FLEXIBLE, TRANSORAL, DIAGNOSTIC performed by Kelsey Goldstein DO at ENDOSCOPY [facility] EGD, FLEXIBLE,W/ENDOSCOPIC US 10/03/2019 lymph node, peripancreatic bx - metastatic cancer, IPMN / INPT [facility] ERCP 10/03/2019 choledocholithiasis / INPT [facility] EXPLORATION OF ABDOMEN 01/14/2014 EXPLORATORY LAPAROTOMY performed by Danae Ceron MD at [facility] LAPAROSCOPY; CHOLECYSTECTOMY 09/2019 LAPAROSCOPY;RMV ADNEXAL STRUCT 01/14/2014 LAPAROSCOPIC OOPHORECTOMY AND OR SALPINGECTOMY performed by Danae Ceron MD at [facility] MASTECTOMY, MODIFIED RADICAL 04/21/2012 04/21/2012 Right mastectomy with right axillary lymph node dissectiona nd left prophylactic mastectomy 04/21/12 Dr. Carbajal at [facility] MASTECTOMY,RADICAL 2011 OTHER (INFORMATION) 11/1986 Left ankle surgery, [place], [place] OVARY/TUBAL CANCR RESEC W/SALPINGO-OOPHEREC 01/14/2014 REMOV GLO ROBI DEQUAN ACC DEV,WITH 02/18/2014 Removal of A port left chest 02/18/14 Dr. Carbajal in the clinic REMOVAL OF OVARY/OVIDUCT(S) 2013 preventive for breast cancer , uterus and cervix intact REPLACE TISSUE DIETETIC TECHNICIAN REGISTERED 07/02/2013 REPLACEMENT EXPANDERS WITH PERMANENT PROSTHESIS performed by Delio Chan MD at [facility] SKIN TISSUE REARRANGEMENT 07/02/2013 SKIN TISSUE REARRANGEMENT performed by Delio Chan MD at [facility] SKIN TISSUE REARRANGEMENT, ADD-ON 07/02/2013 SKIN TISSUE REARRANGEMENT, ADD-ON performed by Delio Chan MD at [facility] TOTAL ABD HYSTERECTOMY W/WO REMOVAL OF TUBE(S) 01/14/2014 lap BSO , uterus intact Family History Problem Relation Age of Onset Alzheimer's disease Mother 63 both AD and vascular Hypertension Mother Cancer Sister 23 SCC Cancer Grandmother (Maternal) skin ca Colon cancer Aunt (Unspecified) 65 dad side Social History Socioeconomic History Marital status: Number of children: 2 Occupational History 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: [employer] Occupation: [employer]EW[employer] Employer: [employer] Tobacco Use Smoking status: Never Smokeless tobacco: Never Substance and Sexual Activity Alcohol use: Yes Comment: occasional Drug use: No Social Determinants of Health Food Insecurity: No Food Insecurity (10/28/2022) Hunger Vital Sign Worried About Running Out of Food in [...] negative except mentioned in HPI OBJECTIVE: BP 118/74 | Pulse 47 | Temp 36.8 C (98.3 F) (Tympanic) | Wt 81.6 kg (180 lb) | LMP 01/06/2013 |SpO2 98% | BMI 27.98 kg/m | BSA 1.97 m PHYSICAL EXAM: General: alert, healthy, and no distress Head: Normocephalic, No masses, lesions, tenderness or abnormalities Oropharynx: no exudate, no erythema, lips, buccal mucosa, and tongue normal, and mucous membranes are moist Neck: supple, no adenopathy, no bruits, thyroid normal size, non-tender, without nodularity Lymph: no palpable lymphadenopathy Heart: regular rate & rhythm, no murmur, and no gallops Lungs: chest symmetric with normal AP diameter, no chest deformities noted, no chest wall tenderness, lungs clear to auscultation Abdomen: abdomen soft, no masses or organomegaly, mildly tender with increased bowel sounds Extremities: less than 2 second capillary refill, no joint deformities, effusion, or inflammation ASSESSMENT AND PLAN Small bowel obstruction (HCC) (Primary) - DISCH MED RECON CUR MED LIS Doing better Discussed importance of taking miralax and senna even though she is not constipated to prevent obstruction in future Hospital discharge follow-up - DISCH MED RECON CUR MED LIS 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 Treatment and plan was discussed with patient [...] the author for clarification. Susie White MD 11:09 AM 07/18/2023 Patient location: CLINIC. I was in the same facility as the patient. After connecting through televideo, patient was verified with two unique identifiers. Patient (or authorized legal physician representative)was then informed that this was a Telemedicine visit and being conducted confidentially over securelines. My office door was closed. No one else was in the room with me. Patient acknowledged consentand understanding of privacy and security of the Telemedicine visit, and gave permission to have a telemedicine presenter stay in the room in order to assist with the history and to conduct the exam as needed. I informed the patient that I have reviewed their record in [facility] and presented the opportunity for them to ask any questions regarding the visit today. The patient agreed to participate. documented in this encounter Nursing Notes * Sierra Valente LPN - 07/18/2023 10:52 AM EST Chief Complaint Patient presents with Hospital Follow-Up [facility] d/c 07/05/23 documented in this encounter Plan of Treatment Upcoming Encounters Date Type Department Care Team (Latest Contact Info) Description 08/31/2023 9:45 AM EST Pharmacy Pharmacy Hematology Oncology [address] [address] [facility] Hem/Onc [address] [place], [place] [address] 09/28/2023 11:30 AM EST Hospital Encounter ENDO [facility], Endoscopy Room [facility] [address] [place], [place] [phone] Radha Henderson, DO [address] [place] [address] 09/28/2023 11:30 AM EST - 09/28/2023 12:00 PM EST Surgery ENDO [facility], Endoscopy Room [facility] [address] [place] [phone] Radha Henderson, DO [address] [place] [address] ESOPHAGOGASTRODUODENOSCOPY (EGD), FLEXIBLE, TRANSORAL, DIAGNOSTIC 10/11/2023 7:45 AM EST Office Visit Hematology/Oncol ogy [facility] [place] [address] [facility] [place] [address] Cory Infante MD [address] [facility] [place] [address] 11/17/2023 11:40 AM EDT Office Visit General Internal Medicine [facility] [place] [address] [facility] [place] [address] Susie White MD [address] [facility] [place] [address] 07/24/2024 11:00 AM EST Office Visit [address], [place] [id number] Donita Cornejo PA-C [address] [place] [address] [place] [address] Scheduled Procedures Name Priority Associated Diagnoses Date/Ti me ESOPHAGOGASTRODUODENOSCOPY ( EGD), FLEXIBLE, TRANSORAL, DIAGNOSTIC History of gastric ulcer Malignant neoplasm of overlapping sites of both breasts in female, estrogen receptor positive 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) 09/28/2023 11:30 AM EST COLONOSCOPY FLEXIBLE PROXIMA L DIAGNOSTIC Recall [...] Tdap) 11/03/2023 11/02/2013 CKD PHOS USE SMARTSET 76142 12/02/2023 04/01/2023, 10/12/2021, 02/07/2020 GFR 01/17/2024 07/18/2023, 04/09, 02/04/2023, Additional history exists CKD HGB USE SMARTSET 84546 07/18/202407/18, 07/18/2023, 04/27/2023, Additional history exists Diabetes [...] this encounter Medical Devices Implanted Type Area Debt Collector Device Identifier Shelf Expiration Date Model / Serial / Lot Implant Hi Prof Gel 750cc - [id number] Implanted:Qty: 1 on 07/02/2013 [place] [facility]: Breast MENTOR DARVIN 04/01/2014 [id number] / [id number] / [id number] documented as of this encounter Visit Diagnoses Diagnosis Small bowel obstruction (HCC)- Primary Unspecified intestinal obstruction Hospital discharge follow-up Other follow-up examination 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) Secondary and unspecified malignant neoplasm of intra-abdominal lymph nodes H/O small bowel obstruction Personal history of other diseases of digestive system Malignant neoplasm of overlapping sites of both breasts in female, estrogen receptor positive Intra-abdominal lymphadenopathy Enlargement of lymph nodes Hyperlipidemia with target LDL less than 130 Other and unspecified hyperlipidemia Family hx of melanoma Family history of other specified malignant neoplasm Adjustment insomnia Transient disorder of initiating or maintaining sleep Liver lesion Other specified disorders of liver Microscopic hematuria 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
--- OUTSIDE RECORDS SUMMARY | 2023-08-13 10:52 | External Medical Summary | Summary of Care ---
Author Name Unknown Organization [facility] Address [address] [place] [address] Phone [phone] Care Team Providers Care Audio Visual Project Manager Name Role Phone Susie White MD Primary Care Provider [phone] Reason for Visit * Reason Onset Date Comments Test Results Imaging Study 07/07/2023 Encounter Details Date Type Department Care Team (Late st Contact Info) Description 07/07/2023 Telephone Hematology/Oncology Treatment, [employer] [address] [place] [address] Cory Infante MD [address] [place] [address] Test Results Imaging Study Allergies No known active allergiesdocumented as of this encounter (statuses as of 07/07/2023) Medications Medication Sig Dispensed Refills Start Date [...] Therapy Pack (Ribociclib Succ (400 MG Dose))Indications: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 [...] as of this encounter (statuses as of 07/07/2023) Active Problems Problem Noted Date Diagnosed Date [...] as of this encounter (statuses as of 07/07/2023) Resolved Problems Problem Noted Date Diagnosed Date [...] Infante MD PI CRC Name: Molly Chowdhury [facility] Contact PI or FAMILY SUPPORT WORKER regarding any serious medical event, [...] Infante MD PI CRC Name: Molly Chowdhury [facility] Contact PI or FAMILY SUPPORT WORKER regarding any serious medical event, if new Rx given, ER visit, hospitalization, or billing question Diagnosis changed due to Research Module. Go to Snapshot for study details. 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 I am seeing her on 07/19/2023. " MyG sent. documented in this encounter Plan of Treatment Upcoming Encounters Date Type Department Care Team (Late st Contact Info) Description 07/12/2023 8:15 AM EST Office Visit Hematology/Oncology [place] [address] [address] Cory Infante MD 200 [place] [address] 07/18/2023 11:00 AM EST Office Visit General Internal Medicine [facility] [address] [address] Susie White MD [address] [facility] [place] [address] 07/20/2023 9:45 AM EST Pharmacy Pharmacy Hematology Oncology [facility] [address] [place] [address] [facility], [facility] Hem/Onc [address] [place] [address] 08/23/2023 9:30 AM EST Imaging Radiology [facility] 1st [facility] [address] [facility] [place] [address] 08/30/2023 3:15 PM EST Office Visit Hematology/Oncology [facility] 200 [facility] [place] [address] Cory Infante MD [address] [facility] [place] [address] 12/26/2023 11:00 AM EDT Office Visit Urology, [facility] [address] [facility] [place] [address] Charles Galvan MD [address] [place] [address] 07/24/2024 11:00 AM EST Office Visit Dermatology, [place] [address] [facility] [place] [address] Donita Cornejo PA-C [address] [place] [address] [place] [address] Scheduled Procedures Name Priority Associated Diagnoses Date/Ti [...] Tdap) 11/03/2023 11/02/2013 CKD PHOS USE SMARTSET 83672 12/02/2023 04/01/2023, 10/12/2021, 02/07/2020 CKD HGB USE SMARTSET 40375 04/27/202404/27, 04/27/2023, 02/04/2023, Additional history exists Diabetes [...] this encounter Medical Devices Implanted Type Area Simplex Printer Installer Device Identifier Shelf Expiration Date Model / Serial / Lot Implant Hi Prof Gel 750cc - [id number] Implanted:Qty: 1 on 07/02/2013 [place] [facility] [place] Breast MENTOR DARVIN 04/01/2014 [id number] / [id number] / [id number] documented as of this encounter Advance Directives [...] Directives occurred with: Not Discussed Care Teams Audio Visual Project Manager Relationship Specialty Start Date End Date Susie White MD [address] [place], [place] [address] PCP - General Internal Medicine 03/02/12 documented as of this encounter
--- OUTSIDE RECORDS SUMMARY | 2023-08-13 10:52 | External Medical Summary | Summary of Care ---
Author Name Unknown Organization [facility] Address [address] [place] [address] Phone [phone] Care Team Providers Care Planning Analyst Name Role Phone Susie White MD Primary Care Provider Reason for Visit * Reason Onset Date Comments Appointment 07/12/2023 Encounter Details Date Type Department Care Team (Late st Contact Info) Description 07/12/2023 Telephone Hematology/Oncology [facility] [place] [address] [place] [address] Cory Infante MD [address] [place] [address] Appointment Allergies No known active allergiesdocumented as [...] Infante MD PI CRC Name: Molly Chowdhury [facility] Contact PI or PHYSICIAN/OPHTHALMOLOGIST regarding any serious medical event, if new [...] Infante MD PI CRC Name: Molly Chowdhury [facility] Contact PI or PHYSICIAN/OPHTHALMOLOGIST regarding any serious medical event, if new [...] encounter Miscellaneous Notes * Telephone Encounter - Nat Simpson OSA - 07/12/2023 8:34 AM EST Gastro-please contact patient for an appt in regards to 52-year-old female, a case of metastatic breast cancer, she had multiple small gastric ulcer, biopsy showed metastatic breast cancer in the ulcer, she had 2 episodes of small-bowel obstruction earlier. Currently she is on omeprazole twice a day. Would like to follow-up upper GI endoscopic somewhere in August of 2023 documented in this encounter Plan of Treatment Upcoming Encounters Date Type Department Care Team (Late st Contact Info) Description 07/18/2023 11:00 AM EST Office Visit General Internal Medicine [facility] [address] [facility] [place] [address] Susie [place] MD [address] [facility] [place] [address] 07/20/2023 9:45 AM EST Pharmacy Pharmacy Hematology Oncology [facility] [address] [place] [address] [facility], [facility] Hem/Onc [facility] [address] [place], [place] [address] 10/11/2023 7:45 AM EST Office Visit Hematology/Oncology [facility] [address] [facility] [place] [address] Cory Infante MD [address] [place] [address] 12/26/2023 11:00 AM EDT Office Visit Urology, [facility] 132 [facility] [place] [id number] Charles Galvan MD 27 [facility] [address] [place] [address] 07/24/2024 11:00 AM EST Office Visit Dermatology[address] [place] [address] Donita Cornejo PA-C [address] [place] [address] [place] [id number] Scheduled Procedures Name Priority Associated Diagnoses Date/Ti me COLONOSCOPY FLEXIBLE PROXIMA L DIAGNOSTIC Recall History of colonic polyps Health Maintenance Due Date Last Done Comments Hepatitis B (1 of 3 - 3-dose series) 1972 HIV Screening 1987 Hepatitis C Screening 1990 COVID-19 Vaccine ( - 2022- season) 2023 07/28/2022, 02/02/2022, 05/11/2021, Additional history exists GFR 10/26/2023 04/27/2023, 01/08, 12/01/2022, Additional history exists Albumin/Creatinine Ratio 10/29/2023 10/28/2022, 03/0 02/2022 Depression Screening 10/29/2023 10/28/2022 DTaP,Tdap,and Td Vaccines (2 - Td or Tdap) 11/03/2023 11/02/2013 CKD PHOS USE SMARTSET 31879 12/02/2023 04/01/2023, 10/12/2021, 02/07/2020 CKD HGB USE SMARTSET 13552 04/27/202404/27, 04/27/2023, 02/04/2023, Additional history exists Diabetes [...] this encounter Medical Devices Implanted Type Area Set Builder Device Identifier Shelf Expiration Date Model / Serial / Lot Implant Hi Prof Gel 750cc - [id number] Implanted:Qty: 1 on 07/02/2013 at [place] [facility] [place] Left: Breast MENTOR DARVIN 04/01/2014 [id number] / [id number] / [id number] documented as of this encounter Advance Directives [...] Directives occurred with: Not Discussed Care Teams Planning Analyst Relationship Specialty Start Date End Date Susie White MD [address] [place] [address] PCP - General Internal Medicine 03/02/12 documented as of this encounter
--- OUTSIDE RECORDS SUMMARY | 2023-08-13 10:52 | External Medical Summary | Summary of Care ---
Author Name Unknown Organization [facility] Address [address] [place] [address] Phone [phone] Care Team Providers Care Manager Emergency Department Name Role Phone Susie White MD Primary Care Provider [phone] Reason for Visit * Reason Onset Date Comments Hospital Follow-Up 07/06/2023 JOYCE Encounter Details Date Type Department Care Team ([facility] st Contact Info) Description 07/06/2023 Telephone [facility] [address] [place] [facility] [place] [address] Alexandra Shannon, BEN Hospital Follow-Up (JOYCE) Allergies No known active allergiesdocumented as of this encounter (statuses as of 07/06/2023) Medications Medication Sig Dispensed Refills Start Date [...] as of this encounter (statuses as of 07/06/2023) Active Problems Problem Noted Date Diagnosed Date [...] as of this encounter (statuses as of 07/06/2023) Resolved Problems Problem Noted Date Diagnosed Date [...] Infante MD PI CRC Name: Molly Chowdhury [facility] Contact PI or GLUING MACHINE OPERATOR AUTOMATIC regarding any serious medical event, if [...] Infante MD PI CRC Name: Molly Chowdhury [facility] Contact PI or GLUING MACHINE OPERATOR AUTOMATIC regarding any serious medical event, if new Rx given, ER visit, hospitalization, or billing question Diagnosis changed due to Research Module. Go to Snapshot for study details. 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 10/13/2019 documented as of this encounter (statuses as of 07/06/2023) Immunizations Name Administration Dates Next Due COVID-19 [...] encounter Miscellaneous Notes * Telephone Encounter - Alexandra Shannon RN - 07/06/2023 1:21 PM EST Transitions of Care Note Reason for Referral:Recent Admission Phone visit for follow up: JOYCE Admitted to: [facility], Date: 07/03/2023 Discharged to: Home, Date: 07/05/2023 Diagnosis driving hospitalization: Acute Small Bowel Obstruction Source/Contact: Patient SUBJECTIVE Consent: Verbal consent for review of hospital discharge: Yes REVIEW OF SYSTEMS Patient/Other Reports: Current patient/caregiver problems or concerns: Doing well at home, taking low fiber diet in smaller meals, + flatus, had large loose BM yesterday, none so far today. CV: Denies problems Pulmonary: Denies problems Chills/Sweats/Fever:Denies chills/sweats Denies fever Appetite:Denies problems such as nausea, vomiting, burning, decreased appetite Current diet: Low fiber Bowel: see above Bladder: denies problems Wound (If applicable): N/A Pain:Denies Sleep:Denies problems FUNCTIONAL STATUS: ADL'S: Needs Assistance With:N/A as pt is independent IADL'S: Needs Assistance With:N/A as pt is independent Cognitive and Mental Health: denies problems, alert and oriented x 3, and able to communicate, understand instructions, process information. MEDICATION RECONCILIATION Medications: Discharge med list reviewed with patient or caregiver New medications: Polyethylene glycol, Sennosides-docusate sodium ASSESSMENT Medication Risk Assessment: No risks identified Did patient fail outpatient treatment? No Discharge instructions available for review? Yes PLAN Symptom Monitoring Interventions:Member/caregiver education - signs and symptoms to contact PrimaryCare (DO NOT DELETE-Three jaime symptoms patient is to report to PCP) 1. Chest Pain/SOB 2. Fever/chills 3. Return of Abdominal pain/Nausea/Vomiting Drawing Machine OperatorGeneral Assignment Reporter of Care interventions/Action Plan: 5 - 7 day follow-up with PCP in place - Date: Offered appts for this week and next week, patient states unable to do this week and out of town next week. Appt made for 07/18/2023 Educated on role of JOYCE completed with patient/caregiver. Educated patient/caregiver on patient right to have input on JOYCE plan of care. Verification of Home Health/DME if indicated: NA Identified Care Gaps: No Care Gaps closed this call: Appointment made or confirmed and Transition of Care follow-up communication Re-evaluation of Plan of Care and progress towards goals achievement: Patient education this visit: Verbal, Scheduled PCP appointment 07/18/2023, date per patient request, discussed reasons to call sooner as above Plan to instructed to call Primary Care Provider with change in symptoms or as needed before next follow-up, discharge needs met, verbalizes understanding and agrees with plan. Alexandra Shannon RN documented in this encounter Plan of Treatment Upcoming Encounters Date Type Department Care Team (Late st Contact Info) Description 07/18/2023 11:00 AM EST Office Visit General Internal Medicine [facility] [address] [place] [address] Susie [place] MD [address] [place] [address] 07/19/2023 11:15 AM EST Office Visit Hematology/Oncology [facility] [place] [address] [place] [address] Cory Infante MD [address] [place] [address] 07/20/2023 9:45 AM EST Pharmacy Pharmacy Hematology Oncology [place] [address] [place] [address] [facility], [facility] Hem/Onc [facility] [place] [address] 08/23/2023 9:30 AM EST Imaging Radiology [facility] 1st [facility] [address] [facility] [place] [address] 08/30/2023 3:15 PM EST Office Visit Hematology/Oncology [facility] [address] [place] [address] Cory Infante MD [address] [place] [address] 12/26/2023 11:00 AM EDT Office Visit Urology, [facility] [address] [facility] [place] [address] Charles Galvan MD [address] [place] [address] [place] [address] 07/24/2024 11:00 AM EST Office Visit Dermatology, [address] [address] Donita Cornejo PA-C [address] [place] [address] [place] [address] Scheduled Procedures Name Priority [...] Tdap) 11/03/2023 11/02/2013 CKD PHOS USE SMARTSET 71964 12/02/202311/07, 10/12/2021, 02/07/2020 CKD HGB USE SMARTSET 87599 04/27/202404/27, 04/27/2023, 02/04/2023, Additional history exists Diabetes [...] this encounter Medical Devices Implanted Type Area Train Examiner Device Identifier Shelf Expiration Date Model / Serial / Lot Implant Hi Prof Gel 750cc - [id number] Implanted:Qty: 1 on 07/02/2013 [place] [facility] [place] Left: Breast MENTOR DARVIN 04/01/2014 [id number] / [id number] / [id number] documented as of this encounter Advance Directives [...] occurred with: Not Discussed Care Teams Manager Emergency Department Relationship Specialty Start Date End Date Susie White MD [address] [place] [address] PCP - General Internal Medicine 03/02/12 documented as of this encounter
--- OUTSIDE RECORDS SUMMARY | 2023-08-13 10:52 | External Medical Summary | Summary of Care ---
Author Name Unknown Organization [facility] Address [address] [place] [address] Phone [phone] Care Team Providers Care Wood Repatcher Name Role Phone Susie White MD Primary Care Provider [phone] Reason for Visit * Reason Onset Date Comments Appointment 07/12/2023 Encounter Details Date Type Department Care Team (Late st Contact Info) Description 07/12/2023 Telephone Hematology/Oncology [facility] [place] [address] [facility] [place] [address] Cory Infante MD 200 [place] [address] Appointment Allergies No known active allergiesdocumented as [...] Infante MD PI CRC Name: Molly Chowdhury [facility] Contact PI or RETENTION REPRESENTATIVE regarding any serious medical event, if new [...] Infante MD PI CRC Name: Molly Chowdhury [facility] Contact PI or RETENTION REPRESENTATIVE regarding any serious medical event, if new [...] encounter Miscellaneous Notes * Telephone Encounter - Shantanu Moreno OSA - 07/12/2023 9:20 AM EST EGD abdulaziz'd 08/18 w/ Triston * Telephone Encounter - Nat Simpson OSA [...] Office Visit General Internal Medicine [facility] [place] 200 [facility] [place] [address] Susie [place] MD 200 [facility] [place] [address] 07/20/2023 9:45 AM EST Pharmacy Pharmacy Hematology Oncology [facility] [address] [place] [address] [facility], [facility] Hem/Onc [address] [place] [address] 08/18/2023 1:30 PM EST Hospital Encounter ENDO [facility], Endoscopy Room [facility] [address] [place] [id number] Kelsey Goldstein, DO [address] [place] [address] 08/18/2023 1:30 PM EST - 08/18/2023 2:00 PM EST Surgery ENDO [facility], Endoscopy Room [facility] [address] [place] [phone] Kelsey Goldstein, DO [address] [place] [address] ESOPHAGOGASTRODUODENOSCOPY (EGD), FLEXIBLE, TRANSORAL, DIAGNOSTIC 10/11/2023 7:45 AM EST [facility] [address] [place] [address] Cory Infante MD [address] [place] [address] 12/26/2023 11:00 AM EDT Office Visit Urology, [facility] [address] [facility] [place] [address] Charles Galvan MD 27 [facility] [address] [place] [id number] 07/24/2024 11:00 AM EST Office Visit Dermat[address] [id number] Donita Cornejo PA-C [address] [place] [address] [place] [address] Scheduled Procedures Name Priority Associated Diagnoses Date/Ti [...] Tdap) 11/03/2023 11/02/2013 CKD PHOS USE SMARTSET 36187 12/02/2023 04/2 01/2023, 10/12/2021, 02/07/2020 CKD HGB USE SMARTSET 77019 04/27/202404/27, 04/27/2023, 02/04/2023, Additional history exists Diabetes [...] this encounter Medical Devices Implanted Type Area Cart Pusher Device Identifier Shelf Expiration Date Model / Serial / Lot Implant Hi Prof Gel 750cc - [id number] Implanted:Qty: 1 on 07/02/2013 [place] [facility] [place]: Breast MENTOR DARVIN 04/01/2014 [id number] / [id number] / [id number] documented as of this encounter Advance Directives [...] Directives occurred with: Not Discussed Care Teams Wood Repatcher Relationship Specialty Start Date End Date Susie White MD 200 [place] [address] PCP - General Internal Medicine 03/02/12 documented as of this encounter
[2023-08-13] MEDS: D5W AND 1/2NSS 1,000 ML IV SCH ×2 (11:23→19:24)
[2023-08-13] MEDS: ENOXAPARIN INJ 40 MG/0.4 ML SYR SQ SCH (11:23)
--- NOTE | 2023-08-13 13:42 | Surgery Consultation ---
Date of Consultation August 13, 2023 Assessment & Plan (1) SBO (small bowel obstruction): Plan No acute surgical intervention at this time. Afebrile, HD stable, no leukocytosis. IVF with D5, NPO, antiemetics and IV analgesia Has risk factors for SBO considering her medical and surgical history. Patient says she has never and a SBFT in the past. Will consider this when appropriate and patient proves that she is not completely obstructed. For now, monitor with NGT. Surgery will follow to determine time to SBFT Record NGT outputs and maintain its function to LCWS May have mechanical DVT ppx while in bed and also may have daily chemical DVT ppx Recommend GI ppx in the form of IV Protonix with NGT and h/o metastatic ulcerations F/U am labs Replete electrolytes as needed per medicine Will see in the am History of Present Illness Reason for Consultation: SBO Attending Physician: Eyal Castellon MD History of Present Illness 52 yr old Female with PMH of hyperlipidemia, metastatic breast cancer, CKD stage III and sarcoidosis presents with abdominal pain and found to have recurrent small bowel obstruction. Patient states abdominal pain started last Tuesday on and off but last night was continuous and very severe in nature so she came to the ER. This was also a/w N/V that started on Tuesday. In the ED she was HD stable, afebrile without leukocytosis. CT A/P revealed recurrent SBO again with a transition point in the RLQ as noted on priors. She has been admitted to medicine and a surgical consult was placed. Pain is improved and she is not currently nauseous. She is not yet passing flatus. Shante further explains that she has had a number of SBOs in the past and is usually able to manage these at home with bowel rest. This is the first time she has required an NGT. She says a PET CT not long ago appeared clear for distant metastatic disease other than lesions apparent within stomach ulcers which was discovered in 2022 and confirmed with EGD. Previously documented to have lymphnodal mets in 2019. She remains on CTX and Letrozole. She follows with Dr. Cory Infante for medical oncology. Past surgical history. Periprosthetic capsulectomy of the breast, breast reconstruction, bronchoscopy, colonoscopy, dilatation curettage, EGD, EGD with endoscopic ultrasound, ERCP, exploratory laparotomy, laparoscopic cholecystectomy, laparoscopic oophorectomy, right mastectomy with right axillary lymph node dissection and prophylactic mastectomy, left ankle surgery, total abdominal hysterectomy with removal of tubes salpingo-oophorectomy. Allergies Allergy/AdvReac Type Severity Reaction Status Date / Time No Known Allergies Allergy Verified 08/12/23 23:32 Home Medications Medication Instructions Recorded Confirmed Type letrozole 2.5 mg tablet 2.5 mg PO DAILY 07/03/23 08/12/23 History omeprazole 20 mg tablet,delayed 20 mg PO BID 07/03/23 08/12/23 History release ribociclib 400 mg/day (200 mg x 2) 400 mg PO DAILY 07/03/23 08/12/23 History tablets (Kisqali) trazodone 50 mg tablet 50 mg PO HS 07/03/23 08/12/23 History polyethylene glycol 3350 17 gram 17 g PO DAILY #30 ea 07/05/23 08/12/23 Rx oral powder packet (Miralax) docusate sodium 100 mg capsule 200 mg PO BID 08/12/23 08/12/23 History (Colace) Patient History Medical History (Updated 08/13/23 @ 04:38 by Amando Dupree PA-C) Sarcoidosis Breast cancer (03/21/12) "Self detected right breast mass Status post right breast ultrasound and core needle biopsy revealing invasive ductal carcinoma with extensive DCIS and invasive lobular carcinoma estrogen receptor positive, progesterone receptor positive, and HER-2/rashida negative Status post right mastectomy and axillary dissection with left prophylactic mastectomy Stage pT3 bN3 M0 Status post systemic chemotherapy with TAC Status post completion of radiation therapy 01/25/2013 received 5920 cGy Status post placement of permanent implants " Surgical History Hx laparoscopic cholecystectomy (10/02/19) Laparoscopic Cholecystectomy with Cholangiogram Dr. Vargas 10/02/19 History of D&C History of esophagogastroduodenoscopy (EGD) 11/2018 dx gastritis History of bronchoscopy History of oophorectomy History of bilateral mastectomy 04/21/2012 Right mastectomy with right axillary lymph node dissectiona nd left prophylactic mastectomy 04/21/12 Dr. 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 No peritonitis. Psychiatric: Orientation: alert, oriented x 3 and cooperative; not guarded Results & Data Vital Signs (Past 12 Hours) Vital Signs Pulse Resp BP Pulse Ox O2 Del Method 08/13/23 10:00 80 18 115/57 L 98 Room Air 08/13/23 07:35 79 14 96/69 L 96 Room Air 08/13/23 06:00 81 16 129/87 94 Room Air 08/13/23 04:00 76 16 132/81 96 Room Air 08/13/23 02:00 80 18 136/82 98 Room Air Diagnostic Findings FINDINGS: Lung bases: Unremarkable. No mass. No consolidation. ABDOMEN: Liver: Unremarkable. No mass. Gallbladder and bile ducts: Post cholecystectomy. Unchanged intrahepatic and extrahepatic biliary ductal dilatation. Ductal dilation. Pancreas: Unremarkable. No mass. No ductal dilation. Spleen: Unremarkable. No splenomegaly. Adrenals: Unremarkable. No mass. Kidneys and ureters: Unchanged mild left hydronephrosis. Normal caliber left ureter. No obstructing calculus identified. Right kidney and ureter are unremarkable. Stomach and bowel: Unchanged mild gastric antral wall thickening. Diffuse small bowel dilatation with air-fluid levels and mild wall thickening greatest distally. Transition in the right abdomen with distal small bowel wall thickening. Mild diffuse abdominal and pelvic free fluid, increased. Normal caliber colon with moderate stool. No evidence for diverticulitis. PELVIS: Appendix: No findings to suggest acute appendicitis. Bladder: Partially contracted. No mass. Reproductive: Uterus and ovaries are grossly unremarkable. ABDOMEN and PELVIS: Intraperitoneal space: No free air. No free fluid. Bones/joints: No acute fracture. Soft tissues: Partially visualized bilateral breast implants. Vasculature: Unremarkable. No abdominal aortic aneurysm. Lymph nodes: Unremarkable. No enlarged lymph nodes. IMPRESSION: Distal small bowel obstruction with a transition the right lower quadrant., similar to the prior study. Slight increase in mild diffuse abdominal and pelvic free fluid. Otherwise no change including biliary ductal dilatation status post cholecystectomy and left hydronephrosis without obstructing calculus. Electronically signed by: Bill Simental M.D. 08/13/23 01:02 AM PG Care Time/CCT Total # of Minutes Spent Total Time Spent with Patient: Total time spent is greater than 50% in coordination of care (as documented) at patient's floor/unit and/or counseling patient: [place] [address] OFFICE CONSULT LVL 30M Patient Type New History Detailed Exam Detailed Medical Decision Making Moderate Complexity Diagnoses SBO (small bowel obstruction) K56.609
[2023-08-13] MEDS: HYDROmorphone INJ 0.5 MG/0.5 ML SYR IV PRN ×2 (14:57→19:26)
--- NOTE | 2023-08-13 16:24 | Hospitalist Progress Note ---
Date of Service August 13, 2023 Assessment & Plan (1) SBO (small bowel obstruction): Plan: 52 yr old Female with PMH of hyperlipidemia, metastatic breast Cancer , CKD stage III and sarcoidosis presents with abdominal pain and found to have recurrent small bowel obstruction. Acute recurrent small bowel obstruction-likely secondary to adhesions with history of prior abdominal surgeries Last episode in 2018 Has been on NG tube suction, IV fluids and symptomatic medications N.p.o. for now Appreciate surgery input and recommendation Clinically much better Has been passing gas and NG tube will be clamped If there is no problem then that can be taken out this afternoon as per the surgery Complaint sore throat Mostly on the right side Likely secondary to irritation from the NG tube Will try lidocaine viscous History of metastatic breast cancer On letrozole and Kisqali. Restart when able to take p.o. Patient had a EGD which showed gastric ulcers and pathology was consistent with breast primary Heme-onc to continue current medications and follow-up EGD in August 2023 Patient is going to have second opinion with [facility] as per heme-onc notes Denies any significant symptoms CKD stage III Presented with creatinine 1.1 which seems to be around baseline Electrolytes and creatinine remains normal Sarcoidosis Seems currently not under treatment DVT prophylaxis Lovenox Disposition Med/surg Full code Admission and Anticipated Discharge Date Admission Date: August 13, 2023 Subjective 08/13/2023 Patient was seen and examined in emergency room Has been complaining of abdominal pain with nausea and distention Has not had any bowel movement and has not been passing any gas Denies any fever and or chills 08/14/2023 The patient was seen and examined in the medical floor She has been ambulating around the hallway No abdominal distention, nausea no vomiting She has been passing gas but bowel has not moved yet Complains of pain in the right side of the throat and especially worse with swallowing Review of Systems Review of Systems: All systems reviewed and are unremarkable except as noted below Physical Exam Physical Exam: Standing at the bedside with some anxiety and minimal distress Constitutional: + ill appearing and average body habitus Eyes: PERRL, conjunctivae normal, anicteric sclerae ENMT: external ear and nose normal, oropharynx normal Throat appeared a little congested Neck: trachea midline, no thyromegaly Respiratory: no respiratory distress Auscultation: lungs clear to ausculta tion bilaterally Cardiovascular: Rate/Rhythm: regular rate and regular rhythm; not tachycardic Heart Sounds: normal S1 and normal S2; no murmur Extremities: no edema Gastrointestinal (Abdomen): Inspection/Auscultation: + abdomen distended; + abnormal bowel sounds (Diminished) Percussion/Palpation: + abdomen tender (All over) and abdomen soft Musculoskeletal: No acute arthritis involving any of the joint Neurologic: normal touch/pain/proprioception and moves all extremities; no focal motor deficits Psychiatric: A+Ox3, euthymic affect Lymphatic: no cervical or axillary lymphadenopathy Results & Data Results & Data Vital Signs (Past 12 Hours) Vital Signs Pulse Resp BP Pulse Ox O2 Del Method 08/13/23 14:51 Room Air 08/13/23 13:56 74 18 129/82 96 Room Air 08/13/23 10:00 80 18 115/57 L 98 Room Air 08/13/23 07:35 79 14 96/69 L 96 Room Air 08/13/23 06:00 81 16 129/87 94 Room Air Laboratory Results Short CBC 08/12/23 08/13/23 Range/Units 21:49 10:15 WBC 3.67 L 3.17 L (4.8-10.8) K/ul Hgb 14.0 12.8 (12.0-16.0) g/dl Hct 41.6 37.0 (37.0-47.0) % Plt Count 210 182 (130-400) K/uL BMP 08/12/23 08/13/23 21:49 10:15 Sodium 137 138 Potassium 3.7 3.9 Chloride 102 106 Carbon Dioxide 26 27 BUN 11 9 Creatinine 1.16 1.08 Glucose 110 H 99 Calcium 9.8 9.0 Liver Function 08/12/23 Range/Units 21:49 Total Bilirubin 0.5 (0.2-1.0) mg/dl AST 16 (13-39) U/L ALT 15 (7-52) U/L Alkaline Phosphatase 46 (34-104) U/L Albumin 4.4 (3.4-5.0) gm/dl Urine 08/12/23 Range/Units 22:07 Urine Color Yellow Urine Appearance Clear (Clear) Urine pH 7.0 (4.5-7.5) Ur Specific [place] 1.017 (1.000-1.030) Urine Protein Negative (Negative) Urine Glucose (UA) Negative (Negative) Short CBC 08/14/23 Range/Units 05:57 WBC 3.72 L (4.8-10.8) K/ul Hgb 13.8 (12.0-16.0) g/dl Hct 40.1 (37.0-47.0) % Plt Count 210 (130-400) K/uL BMP 08/14/23 05:57 Sodium 139 Potassium 3.8 Chloride 104 Carbon Dioxide 29 BUN 7 Creatinine 1.02 Glucose 89 Calcium 9.0 Medications Administered Current Inpatient Medications Enoxaparin Sodium (Enoxaparin Inj 40 Mg/0.4 Ml Syr) 40 mg SQ Q24H DINORA Stop: 09/12/23 10:01 Last Admin: 08/13/23 11:23 Dose: Not Given Hydromorphone HCl (Hydromorphone Inj 0.5 Mg/0.5 Ml Syr) 0.5 mg IV Q4H PRN PRN Reason: Pain Stop: 08/27/23 10:01 Last Admin: 08/13/23 14:57 Dose: 0.5 mg Acetaminophen (Ofirmev) 1,000 mg in 100 mls @ 400 mls/hr IV Q8H PRN PRN Reason: Headache or Pain Stop: 08/16/23 09:29 Last Infusion: 08/13/23 10:01 Dose: Infused Dextrose/Sodium Chloride (D5w And 1/2nss) 1,000 mls @ 125 mls/hr IV .Q8H DINORA Stop: 09/12/23 10:01 Last Admin: 08/13/23 11:23 Dose: 125 mls/hr Ondansetron HCl (Ondansetron Inj 2 Mg/Ml 2 Ml Vial) 4 mg IV Q6H PRN PRN Reason: Nausea Stop: 09/12/23 10:01 Current Inpatient Medications Enoxaparin Sodium (Enoxaparin Inj 40 Mg/0.4 Ml Syr) 40 mg SQ Q24H DINORA Stop: 09/12/23 10:01 Last Admin: 08/14/23 12:54 Dose: 40 mg Hydromorphone HCl (Hydromorphone Inj 0.5 Mg/0.5 Ml Syr) 0.5 mg IV Q4H PRN PRN Reason: Pain Stop: 08/27/23 10:01 Last Admin: 08/14/23 11:50 Dose: 0.5 mg Acetaminophen (Ofirmev) 1,000 mg in 100 mls @ 400 mls/hr IV Q8H PRN PRN Reason: Headache or Pain Stop: 08/16/23 09:29 Last Infusion: 08/13/23 19:01 Dose: Infused Dextrose/Sodium Chloride (D5w And 1/2nss) 1,000 mls @ 125 mls/hr IV .Q8H DINORA Stop: 09/12/23 10:01 Last Admin: 08/14/23 11:54 Dose: 125 mls/hr Pantoprazole Sodium 40 mg/ (Syringe) 10 mls @ 5 mls/min IV DAILY@1100 [facility] Stop: 09/14/23 10:59 Lidocaine HCl (Lidocaine Viscous 2% 15 Ml Udc) 15 ml MT TID [facility] Stop: 09/13/23 13:59 Ondansetron HCl (Ondansetron Inj 2 Mg/Ml 2 Ml Vial) 4 mg IV Q6H PRN PRN Reason: Nausea Stop: 09/12/23 10:01
[2023-08-14] MEDS: HYDROmorphone INJ 0.5 MG/0.5 ML SYR IV PRN ×3 (00:24→11:50)
[2023-08-14] MEDS: D5W AND 1/2NSS 1,000 ML IV SCH ×3 (03:31→19:40)
[2023-08-14 07:08] LABS: Basophils # (auto) 0.04 K/uL (0.00-0.20); Basophils % (auto) 1.1 %; Eosinophils # (auto) 0.08 K/uL (0.00-0.50); Eosinophils % (auto) 2.2 %; Hematocrit (blood only) 40.1 % (37.0-47.0); Hemoglobin 13.8 g/dl (12.0-16.0); Immature Granulocytes # (auto) 0.01 K/uL (0.01-0.20); Immature Granulocytes % (auto) 0.3 %; Lymphocytes % (auto) 29.6 %; Mean Corpuscular Hemoglobin 32.5 pg (25.0-34.0); Mean Corpuscular Hgb Conc 34.4 g/dL (32.0-36.0); Mean Corpuscular Volume 94.6 fL (80.0-100.0); Mean Platelet Volume 10.2 fL (9.4-12.4); Monocytes # (auto) 0.35 K/uL (0.11-0.59); Monocytes % (auto) 9.4 %; Neutrophils # (auto) 2.14 K/uL (1.40-6.50); Neutrophils % (auto) 57.4 %; Platelet Count 210 K/uL (130-400); RDW Coefficient of Variation 12.5 % (11.5-14.5); RDW Standard Deviation 43.5 fL (36.4-46.3); Red Blood Count 4.24 M/uL (4.20-5.40); White Blood Count 3.72 K/ul (4.8-10.8)
[2023-08-14 07:22] LABS: BUN Creatinine Ratio 6.9 (10-20); Creatinine Clr Calc Pharmacy 69.9 ml/min; Est GFR (African American) 74.3 ml/min; Est GFR (Non-African American) 64.1 ml/min; Magnesium 1.8 mg/dl (1.7-2.4); Phosphorus 3.8 mg/dl (2.5-4.9); Potassium 3.8 mmol/L (3.5-5.1)
--- NOTE | 2023-08-14 11:31 | Surgery Progress Note ---
Date of Service August 14, 2023 Assessment & Plan (1) SBO (small bowel obstruction): Plan 52 y/o F with SBO. Is starting to regain bowel function and presenting symptoms have resolved. Continue with conservative management and supportive care. Continue IVF and NPO. Continue ambulation PPI for gastric irritation with evidence for bleeding. I added this order this am. Initiate a clamping trial on NGT. Leave clamped for 4 hours, then check residuals. If residuals are less than 100 cc patient may have ice chips. Leave NGT in place until surgery sees in the a.m. May obtain a SBFT tomorrow if patient continues with bowel function. Will evaluate for this in the am. Follow-up a.m. labs. Admission and Anticipated Discharge Date Admission Date: August 13, 2023 Subjective Patient seen and examined today. She states her abdominal pain has completely resolved and she started passing gas last night. She denies any further nausea or vomiting. Physical Exam Constitutional: average body habitus and cooperative; no acute distress and not diaphoretic Respiratory: normal respiratory effort; no respiratory distress, no labored breathing and does not use accessory muscles Gastrointestinal (Abdomen): Abdomen soft, nontender to palpation, nondistended. No rebound or guarding. NG to with evidence for gastric irritation and some bleeding. Recorded for 400 cc overnight Psychiatric: Orientation: alert, oriented x 3 and cooperative; not guarded Results & Data Vital Signs (Past 12 Hours) Vital Signs Temp Pulse Resp BP Pulse Ox O2 Del Method 08/14/23 07:55 36.3 C L 72 16 130/81 97 Room Air PG Care Time/CCT Total # of Minutes Spent Total Time Spent with Patient: Total time spent is greater than 50% in coordination of care (as documented) at patient's floor/unit and/or counseling patient: Coding [place] [address] SUB INP/OBS CARE 1/25MIN Patient Type Established History Problem Focused Exam Expanded Problem Focused Medical Decision Making Low Complexity Diagnoses SBO (small bowel obstruction) K56.609
[2023-08-14] MEDS ORDERED: PANTOprazole 40 MG in SYRINGE 0 ML IV ONE (11:45)
[2023-08-14] MEDS ORDERED: LIDOCAINE VISCOUS 2% 15 ML UDC MT ONE (12:25)
[2023-08-14] MEDS: ENOXAPARIN INJ 40 MG/0.4 ML SYR SQ SCH (12:54)
[2023-08-14] MEDS: LIDOCAINE VISCOUS 2% 15 ML UDC MT SCH ×2 (15:03→20:26)
--- NOTE | 2023-08-14 16:42 | XRay Report ---
XR chest 1V portable CLINICAL HISTORY: See the position of the NGT ,Severe throat pain COMPARISON STUDY: CT of the abdomen and pelvis August 12, 2023. KUB August 13, 2023 FINDINGS: The tip of the nasogastric tube is within the body of the stomach. There is no pneumothorax . Suspected trace right pleural effusion. No evidence for pulmonary edema. No consolidation to sugges t pneumonia. IMPRESSION: Tip of nasogastric tube within the body of the stomach. ACT 112: Negative or not required by law. Electronically signed by: Neil Lemus M.D. 08/14/2023 4:40 PM
[2023-08-14] MEDS ORDERED: CHLORASEPTIC (PHENOL) 1.4% SOLN 180 ML BTL MT PRN (19:40)
[2023-08-14] MEDS: ACETAMINOPHEN 1,000 MG/100 ML VIAL IV PRN (19:43)
[2023-08-15] MEDS: D5W AND 1/2NSS 1,000 ML IV SCH ×3 (04:02→19:32)
[2023-08-15 05:57] LABS: Basophils # (auto) 0.04 K/uL (0.00-0.20); Basophils % (auto) 1.3 %; Eosinophils # (auto) 0.08 K/uL (0.00-0.50); Eosinophils % (auto) 2.7 %; Hematocrit (blood only) 35.3 % (37.0-47.0); Hemoglobin 12.3 g/dl (12.0-16.0); Immature Granulocytes # (auto) 0.01 K/uL (0.01-0.20); Immature Granulocytes % (auto) 0.3 %; Lymphocytes # (auto) 0.65 K/uL (1.20-3.40); Lymphocytes % (auto) 21.8 %; Mean Corpuscular Hemoglobin 32.1 pg (25.0-34.0); Mean Corpuscular Hgb Conc 34.8 g/dL (32.0-36.0); Mean Corpuscular Volume 92.2 fL (80.0-100.0); Mean Platelet Volume 10.2 fL (9.4-12.4); Monocytes # (auto) 0.32 K/uL (0.11-0.59); Monocytes % (auto) 10.7 %; Neutrophils # (auto) 1.88 K/uL (1.40-6.50); Neutrophils % (auto) 63.2 %; Platelet Count 179 K/uL (130-400); RDW Coefficient of Variation 12.3 % (11.5-14.5); Red Blood Count 3.83 M/uL (4.20-5.40); White Blood Count 2.98 K/ul (4.8-10.8)
[2023-08-15 06:06] LABS: BUN Creatinine Ratio 6.4 (10-20); Calcium 8.6 mg/dl (8.6-10.3); Creatinine Clr Calc Pharmacy 75.8 ml/min; Est GFR (Non-African American) 70.7 ml/min; Magnesium 1.8 mg/dl (1.7-2.4); Phosphorus 3.8 mg/dl (2.5-4.9); Potassium 3.6 mmol/L (3.5-5.1)
--- NOTE | 2023-08-15 08:36 | Surgery Progress Note ---
Date of Service August 15, 2023 Assessment & Plan (1) SBO (small bowel obstruction): Plan: SBO is clinically resolved. HD stable, afebrile o/n. Due to the recurrence of bowel obstructions that appear to be in the same area, we will further evaluate with a SB FT today. If this patient continues passing flatus, without nausea or abdominal pain we will begin to advance her diet as tolerated. Continue IVF for now. Continue ambulation today. Admission and Anticipated Discharge Date Admission Date: August 13, 2023 Subjective Patient was seen and examined. Her NG tube was removed yesterday due to severe throat irritation. She had tolerated a clamping trial as well as ice chips and sips. She says she has continued to pass flatus and had a BM last night. She denies abdominal pain, nausea or vomiting. Physical Exam Constitutional: healthy appearing; no acute distress, not ill appearing and not diaphoretic Respiratory: normal respiratory effort; no respiratory distress, no labored breathing and does not use accessory muscles Cardiovascular: Rate/Rhythm: regular rate; not tachycardic Gastrointestinal (Abdomen): Abdomen is soft, nontender nondistended. Benign Results & Data Vital Signs (Past 12 Hours) Vital Signs Temp Pulse Resp BP Pulse Ox O2 Del Method 08/15/23 07:21 36.4 C L 69 14 124/80 99 Room Air PG Care Time/CCT Total # of Minutes Spent Total Time Spent with Patient: Total time spent is greater than 50% in coordination of care (as documented) at patient's floor/unit and/or counseling patient: Coding Level of Care Code 73004 SUB INP/OBS CARE 09/01MIN Diagnoses SBO (small bowel obstruction) K56.609
[2023-08-15] MEDS: LIDOCAINE VISCOUS 2% 15 ML UDC MT SCH ×3 (09:04→20:04)
[2023-08-15] MEDS: ENOXAPARIN INJ 40 MG/0.4 ML SYR SQ SCH (10:17)
[2023-08-15] MEDS ORDERED: PANTOprazole 40 MG in SYRINGE 0 ML IV SCH (11:00)
--- NOTE | 2023-08-15 12:10 | Fluoroscopy Report ---
[place] small bowel follow through CLINICAL HISTORY: Follow-up small bowel obstruction. COMPARISON STUDY: KUB 08/13/2023. Abdomen and pelvis CT 08/12/2023. FLUOROSCOPY TIME: 0 seconds. FLUOROSCOPY IMAGES: None. Ka,r: 0 mGy FINDINGS: 4 overhead images of the abdomen and pelvis were submitted for review. Thread Checker images demonst rate prior cholecystectomy. There are few nondilated gas-filled loops of large and small bowel seen t hroughout the abdomen. The patient swallowed water-soluble contrast without difficulty. The small bow el is normal and course and caliber. No dilated loops of small bowel to suggest an obstruction. Contr ast reached the large bowel at 40 minutes. IMPRESSION: Interval resolution of the small bowel obstruction. ACT 112: Negative or not required by law. Electronically signed by: Renny Sánchez M.D. 08/15/2023 12:09 PM
[2023-08-15] MEDS: ACETAMINOPHEN 1,000 MG/100 ML VIAL IV PRN (12:17)
--- NOTE | 2023-08-15 17:32 | Hospitalist Progress Note ---
Date of Service August 15, 2023 Assessment & Plan (1) SBO (small bowel obstruction): Plan: 52 yr old Female with PMH of hyperlipidemia, metastatic breast Cancer , CKD stage III and sarcoidosis presents with abdominal pain and found to have recurrent small bowel obstruction. Acute recurrent small bowel obstruction-likely secondary to adhesions with history of prior abdominal surgeries Last episode in 2018 Has been on NG tube suction, IV fluids and symptomatic medications N.p.o. for now Appreciate surgery input and recommendation Clinically much better Has been passing gas and NG tube will be clamped If there is no problem then that can be taken out this afternoon as per the surgery Bowel is moved, NG tube is out, abdomen remains benign Small bowel follow-through did not show an obstruction Will start diet and advance accordingly Likely discharge tomorrow Complaint sore throat Mostly on the right side Likely secondary to irritation from the NG tube Will try lidocaine viscous NG tube was taken out and the throat pain is improved History of metastatic breast cancer On letrozole and Kisqali. Restart when able to take p.o. Patient had a EGD which showed gastric ulcers and pathology was consistent with breast primary Heme-onc to continue current medications and follow-up EGD in August 2023 Patient is going to have second opinion with [facility] as per heme-onc notes Denies any significant symptoms CKD stage III Presented with creatinine 1.1 which seems to be around baseline Electrolytes and creatinine remains normal Sarcoidosis Seems currently not under treatment DVT prophylaxis Lovenox Disposition Med/surg Full code Likely discharge tomorrow Admission and Anticipated Discharge Date Admission Date: August 13, 2023 Subjective 08/13/2023 Patient was seen and examined in emergency room Has been complaining of abdominal pain with nausea and distention Has not had any bowel movement and has not been passing any gas Denies any fever and or chills 08/14/2023 The patient was seen and examined in the medical floor She has been ambulating around the hallway No abdominal distention, nausea no vomiting She has been passing gas but bowel has not moved yet Complains of pain in the right side of the throat and especially worse with swallowing 08/15/2023 The patient was seen and examined in medical floor She complained of pain in the right side of the throat yesterday evening X-ray did not show any kinking or coiling of the NG tube The tube was taken out following the x-ray for relief of the pain This morning she does not have any complaint of abdominal distention, discomfort, nausea or vomiting, and bowel movement Throat pain is much much improved Review of Systems Review of Systems: All systems reviewed and are unremarkable except as noted below Physical Exam Physical Exam: Standing at the bedside with some anxiety and minimal distress Constitutional: + ill appearing and average body habitus Eyes: PERRL, conjunctivae normal, anicteric sclerae ENMT: external ear and nose normal, oropharynx normal Neck: trachea midline, no thyromegaly Respiratory: no respiratory distress Auscultation: lungs clear to auscu ltation bilaterally Cardiovascular: Rate/Rhythm: regular rate and regular rhythm; not tachycardic Heart Sounds: normal S1 and normal S2; no murmur Extremities: no edema Gastrointestinal (Abdomen): Inspection/Auscultation: + abdomen distended; + abnormal bowel sounds (Diminished) Percussion/Palpation: + abdomen tender (All over) and abdomen soft Neurologic: normal touch/pain/proprioception and moves all extremities; no focal motor deficits Psychiatric: A+Ox3, euthymic affect Lymphatic: no cervical or axillary lymphadenopathy Results & Data Results & Data Vital Signs (Past 12 Hours) Vital Signs Temp Pulse Resp BP Pulse Ox O2 Del Method 08/15/23 16:00 36.4 C L 60 15 128/82 99 Room Air 08/15/23 07:21 36.4 C L 69 14 124/80 99 Room Air Laboratory Results Short CBC 08/15/23 Range/Units 05:35 WBC 2.98 L (4.8-10.8) K/ul Hgb 12.3 (12.0-16.0) g/dl Hct 35.3 L (37.0-47.0) % Plt Count 179 (130-400) K/uL BMP 08/15/23 05:35 Sodium 139 Potassium 3.6 Chloride 108 H Carbon Dioxide 26 BUN 6 Creatinine 0.94 Glucose 95 Calcium 8.6 Medications Administered Current Inpatient Medications Docusate Sodium (Docusate Sodium 100 Mg Cap) 200 mg PO BID DNIORA Stop: 09/14/23 20:59 Enoxaparin Sodium (Enoxaparin Inj 40 Mg/0.4 Ml Syr) 40 mg SQ Q24H DINORA Stop: 09/12/23 10:01 Last Admin: 08/15/23 10:17 Dose: 40 mg Hydromorphone HCl (Hydromorphone Inj 0.5 Mg/0.5 Ml Syr) 0.5 mg IV Q4H PRN PRN Reason: Pain Stop: 08/27/23 10:01 Last Admin: 08/14/23 11:50 Dose: 0.5 mg Acetaminophen (Ofirmev) 1,000 mg in 100 mls @ 400 mls/hr IV Q8H PRN PRN Reason: Headache or Pain Stop: 08/16/23 09:29 Last Infusion: 08/15/23 12:40 Dose: Infused Dextrose/Sodium Chloride (D5w And 1/2nss) 1,000 mls @ 125 mls/hr IV .Q8H [facility] Stop: 09/12/23 10:01 Last Admin: 08/15/23 12:12 Dose: 125 mls/hr Pantoprazole Sodium 40 mg/ (Syringe) 10 mls @ 5 mls/min IV DAILY@1100 [facility] Stop: 09/14/23 10:59 Last Admin: 08/15/23 10:17 Dose: 5 mls/min Lidocaine HCl (Lidocaine Viscous 2% 15 Ml Udc) 15 ml MT TID [facility] Stop: 09/13/23 13:59 Last Admin: 08/15/23 14:32 Dose: Not Given Ondansetron HCl (Ondansetron Inj 2 Mg/Ml 2 Ml Vial) 4 mg IV Q6H PRN PRN Reason: Nausea Stop: 09/12/23 10:01 Phenol (Chloraseptic (Phenol) 1.4% Soln 180 Ml Btl) 2 sprays MT ACHS PRN PRN Reason: Sore Throat Stop: 09/13/23 19:39 Polyethylene Glycol (Polyethylene (Miralax) 17 Gm Pack) 17 gm PO DAILY [facility] Stop: 09/15/23 08:59
[2023-08-15 19:35] VITALS: RESP 16
[2023-08-15] MEDS: DOCUSATE SODIUM 100 MG CAP PO SCH (20:04)
[2023-08-15] MEDS ORDERED: traZODone HCL 50 MG TAB PO SCH (21:00)
--- NOTE | 2023-08-16 07:39 | Surgery Progress Note ---
Date of Service August 16, 2023 Assessment & Plan (1) SBO (small bowel obstruction): Plan: SBO. Symptoms resolved. Tolerating full liquid diet. HD stable and afebrile. SBFT performed yesterday reveals no notable lesion or obstruction within the small bowel. Patient's diet may continue to be advanced. Recommend a soft, low fiber diet and multiple small meals throughout the day. She may be discharged to follow-up with her PCP and medical oncologist. Admission and Anticipated Discharge Date Admission Date: August 13, 2023 Subjective Patient was seen and examined. She continues to feel good states that she tolerated her clear full liquid diet yesterday. She continues to pass flatus, has no abdominal pain and no nausea or vomiting. Physical Exam Constitutional: cooperative; not ill appearing, not in distress and not diaphoretic Respiratory: normal respiratory effort; no respiratory distress, no labored breathing and does not use accessory muscles Cardiovascular: Rate/Rhythm: regular rate; not tachycardic Gastrointestinal (Abdomen): Patient is abdomen is nondistended. Nontender to palpation. Completely benign abdomen. PG Care Time/CCT Total # of Minutes Spent Total Time Spent with Patient: Total time spent is greater than 50% in coordination of care (as documented) at patient's floor/unit and/or counseling patient: Coding Level of Care Code 90418 SUB INP/OBS CARE 09/01MIN Diagnoses SBO (small bowel obstruction) K56.609
[2023-08-16 07:45] VITALS: BP 109/75; PULSE 72; TEMP 97.7; O2SAT 97
[2023-08-16] MEDS: LIDOCAINE VISCOUS 2% 15 ML UDC MT SCH (08:26)
[2023-08-16] MEDS: DOCUSATE SODIUM 100 MG CAP PO SCH (08:26)
[2023-08-16] MEDS ORDERED: POLYETHYLENE (MIRALAX) 17 GM PACK PO SCH (09:00)
[2023-08-16] MEDS ORDERED: PANTOprazole 40 MG TAB PO SCH (09:00)
[2023-08-16] MEDS: ENOXAPARIN INJ 40 MG/0.4 ML SYR SQ SCH (09:35)
--- NOTE | 2023-08-16 11:11 | Hospitalist Progress Note ---
Date of Service August 16, 2023 Assessment & Plan (1) SBO (small bowel obstruction): Plan: 52 yr old Female with PMH of hyperlipidemia, metastatic breast Cancer , CKD stage III and sarcoidosis presents with abdominal pain and found to have recurrent small bowel obstruction. Acute recurrent small bowel obstruction-likely secondary to adhesions with history of prior abdominal surgeries Last episode in 2018 Has been on NG tube suction, IV fluids and symptomatic medications N.p.o. for now Appreciate surgery input and recommendation Clinically much better Has been passing gas and NG tube will be clamped If there is no problem then that can be taken out this afternoon as per the surgery Bowel is moved, NG tube is out, abdomen remains benign Small bowel follow-through did not show an obstruction Will start diet and advance accordingly Remains free from any symptoms and has been tolerating advance diet Was seen by the surgery service and she will be discharged home this afternoon Complaint sore throat Mostly on the right side Likely secondary to irritation from the NG tube Will try lidocaine viscous NG tube was taken out and the throat pain is improved Denies any more complaints History of metastatic breast cancer On letrozole and Kisqali. Restart when able to take p.o. Patient had a EGD which showed gastric ulcers and pathology was consistent with breast primary Heme-onc to continue current medications and follow-up EGD in August 2023 Patient is going to have second opinion with [facility] as per heme-onc notes Denies any significant symptoms Advised to have appointment with her oncologist as an outpatient CKD stage III Presented with creatinine 1.1 which seems to be around baseline Electrolytes and creatinine remains normal Sarcoidosis Seems currently not under treatment DVT prophylaxis Lovenox Disposition Med/surg Full code Likely discharge this afternoon Admission and Anticipated Discharge Date Admission Date: August 13, 2023 Subjective 08/13/2023 Patient was seen and examined in emergency room Has been complaining of abdominal pain with nausea and distention Has not had any bowel movement and has not been passing any gas Denies any fever and or chills 08/14/2023 The patient was seen and examined in the medical floor She has been ambulating around the hallway No abdominal distention, nausea no vomiting She has been passing gas but bowel has not moved yet Complains of pain in the right side of the throat and especially worse with swallowing 08/15/2023 The patient was seen and examined in medical floor She complained of pain in the right side of the throat yesterday evening X-ray did not show any kinking or coiling of the NG tube The tube was taken out following the x-ray for relief of the pain This morning she does not have any complaint of abdominal distention, discomfort, nausea or vomiting, and bowel movement Throat pain is much much improved 08/16/2023 The patient was seen and examined She has been feeling much better and denies any symptoms Tolerating diet, no abdominal discomfort, has been moving bowel and no problem with ambulation She will be discharged home this after Review of Systems Review of Systems: All systems reviewed and are unremarkable except as noted below Physical Exam Physical Exam: Standing at the bedside with some anxiety and minimal distress Constitutional: average body habitus; not ill appearing Eyes: PERRL, conjunctivae normal, anicteric sclerae ENMT: external ear and nose normal, oropharynx normal Neck: trachea midline, no thyromegaly Respiratory: no respiratory distress Auscultation: lungs clear to auscultation bilaterally Cardiovascular: Rate/Rhythm: regular rate and regular rhythm; not tachycardic Heart Sounds: normal S1 and normal S2; no murmur Extremities: no edema Gastrointestinal (Abdomen): Inspection/Auscultation: normal bowel sounds; abdomen not distended Percussion/Palpation: + abdomen tender (All over) and abdomen soft Musculoskeletal: No acute arthritis involving any joint Neurologic: normal touch/pain/proprioception and moves all extremities; no focal motor deficits Psychiatric: A+Ox3, euthymic affect Lymphatic: no cervical or axillary lymphadenopathy Results & Data Results & Data Vital Signs (Past 12 Hours) Vital Signs Temp Pulse Resp BP Pulse Ox O2 Del Method 08/16/23 07:44 36.5 C 72 16 109/75 97 Room Air Medications Administered Current Inpatient Medications Docusate Sodium (Docusate Sodium 100 Mg Cap) 200 mg PO BID [facility] Stop: 09/14/23 20:59 Last Admin: 08/16/23 08:26 Dose: Not Given Enoxaparin Sodium (Enoxaparin Inj 40 Mg/0.4 Ml Syr) 40 mg SQ Q24H [facility] Stop: 09/12/23 10:01 Last Admin: 08/16/23 09:35 Dose: Not Given Hydromorphone HCl (Hydromorphone Inj 0.5 Mg/0.5 Ml Syr) 0.5 mg IV Q4H PRN PRN Reason: Pain Stop: 08/27/23 10:01 Last Admin: 08/14/23 11:50 Dose: 0.5 mg Lidocaine HCl (Lidocaine Viscous 2% 15 Ml Udc) 15 ml MT TID [facility] Stop: 09/13/23 13:59 Last Admin: 08/16/23 08:26 Dose: Not Given Ondansetron HCl (Ondansetron Inj 2 Mg/Ml 2 Ml Vial) 4 mg IV Q6H PRN PRN Reason: Nausea Stop: 09/12/23 10:01 Pantoprazole Sodium (Pantoprazole 40 Mg Tab) 40 mg PO QAM [facility] Stop: 09/15/23 08:59 Last Admin: 08/16/23 08:26 Dose: 40 mg Phenol (Chloraseptic (Phenol) 1.4% Soln 180 Ml Btl) 2 sprays MT ACHS PRN PRN Reason: Sore Throat Stop: 09/13/23 19:39 Polyethylene Glycol (Polyethylene (Miralax) 17 Gm Pack) 17 gm PO DAILY [facility] Stop: 09/15/23 08:59 Last Admin: 08/16/23 08:26 Dose: Not Given Trazodone HCl (Trazodone Hcl 50 Mg Tab) 50 mg PO HS [facility] Stop: 09/14/23 20:59 Last Admin: 08/15/23 20:29 Dose: 50 mg
--- NOTE | 2023-08-17 09:19 | Discharge Summary ---
Date of Service August 16, 2023 Admission HPI Per Admitting Provider 52 yr old Female with PMH of hyperlipidemia, metastatic breast Cancer , CKD stage III and sarcoidosis presents with abdominal pain and found to have recurrent small bowel obstruction. Patient states abdominal pain started last Tuesday on and off but last night was continuous and very severe in nature so she came to the ER. Currently s/p NG tube. Currently pain is improved. Was having nausea and vomitings. Was constipated. Last good bowel movement was last Tuesday. She had small amount of stools yesterday morning. Denies any fevers. Micturating okay. No chest pain or shortness of breath. No cough. No headache. No runny nose or sore throat. Hemodynamics are stable. Past medical history. As mentioned above Past surgical history. Periprosthetic capsulectomy of the breast, breast reconstruction, bronchoscopy, colonoscopy, dilatation curettage, EGD, EGD with endoscopic ultrasound, ERCP, exploratory laparotomy, laparoscopic cholecystectomy, laparoscopic oophorectomy, right mastectomy with right axillary lymph node dissection and prophylactic mastectomy, left ankle surgery, total abdominal hysterectomy with removal of tubes salpingo-oophorectomy. Social history. . No smoking. Alcohol occasional. No drug use. Family history. Mother had Alzheimer's disease and hypertension. Maternal grandmother had skin cancer. Sister had cancer. Aunt has colon cancer. Admission Exam Per Admitting Provider Physical Exam: General- Not in distress Head- atraumatic Eyes- PERRL. ENT- s/p NG tube Neck- supple, no JVD. Lungs- clear to auscultation no wheezing or crackles. Heart- regular rhythm; no murmur, no gallop. Abdomen- sluggish bowel sounds, soft, mild diffuse tender , no distension. Extremities- no pretibial edema, no erythema seen Neuro- alert, oriented x 3; PERRL, no facial palsy; no dysarthria; moves extremities. Skin- warm & dry Principal Diagnosis SBO-resolved Discharge Exam Standing at the bedside with some anxiety and minimal distress Constitutional average body habitus; not ill appearing Eyes PERRL, conjunctivae normal, anicteric sclerae ENMT external ear and nose normal, oropharynx normal Neck trachea midline, no thyromegaly Respiratory no respiratory distress Auscultation: lungs clear to auscultation bilaterally Cardiovascular Rate/Rhythm: regular rate and regular rhythm; not tachycardic Heart Sounds: normal S1 and normal S2; no murmur Extremities: no edema Gastrointestinal (Abdomen) Inspection/Auscultation: normal bowel sounds; abdomen not distended Percussion/Palpation: + abdomen tender (All over) and abdomen soft Neurologic normal touch/pain/proprioception and moves all extremities; no focal motor deficits Psychiatric A+Ox3, euthymic affect Lymphatic no cervical or axillary lymphadenopathy Discharge Data Allergies Allergy/AdvReac Type Severity Reaction Status Date / Time No Known Allergies Allergy Verified 08/12/23 23:32 Consultations 08/13/23 02:29 ED Decision to Admit Stat 08/13/23 10:02 Consult General Surgery Routine Ordered Studies 08/12/23 22:13 CT abd pelvis IV con only Stat 08/15/23 08:16 [place] small bowel follow through Routine Hospital Course (1) SBO (small bowel obstruction): 52 yr old Female with PMH of hyperlipidemia, metastatic breast Cancer , CKD stage III and sarcoidosis presents with abdominal pain and found to have recurrent small bowel obstruction. Acute recurrent small bowel obstruction-likely secondary to adhesions with history of prior abdominal surgeries Last episode in 2018 Has been on NG tube suction, IV fluids and symptomatic medications N.p.o. for now Appreciate surgery input and recommendation Clinically much better Has been passing gas and NG tube will be clamped If there is no problem then that can be taken out this afternoon as per the surgery Bowel is moved, NG tube is out, abdomen remains benign Small bowel follow-through did not show an obstruction Will start diet and advance accordingly Remains free from any symptoms and has been tolerating advance diet Was seen by the surgery service and she will be discharged home this afternoon Complaint sore throat Mostly on the right side Likely secondary to irritation from the NG tube Will try lidocaine viscous NG tube was taken out and the throat pain is improved Denies any more complaints History of metastatic breast cancer On letrozole and Kisqali. Restart when able to take p.o. Patient had a EGD which showed gastric ulcers and pathology was consistent with breast primary Heme-onc to continue current medications and follow-up EGD in August 2023 Patient is going to have second opinion with [facility] as per heme-onc notes Denies any significant symptoms Advised to have appointment with her oncologist as an outpatient CKD stage III Presented with creatinine 1.1 which seems to be around baseline Electrolytes and creatinine remains normal Sarcoidosis Seems currently not under treatment DVT prophylaxis Lovenox Disposition Med/surg Full code Likely discharge this afternoon Total Time Total Time Spent Total Time Spent (In Minutes): 35 minutes Discharge Plan Discharge Items Patient Disposition: Home - Self-Care Reason For Visit: SBO Discharge Diagnosis: SBO-resolved Condition on Discharge: Good Activity: Resume your previous activity Non-emergency contact: Primary Care Provider Call non-emergency contact if: you have any medication questions and your symptoms worsen Follow-up/Referrals: Susie White MD [Primary Care Provider] - (Date & Time 08/19/2023 9:00 AM Provider Susie White MD Department General Internal Medicine [facility] ) Diet: Low Fiber Diet Comment: Soft, low fiber diet, small frequent meals is advised Addtl Attending Provider Instructions: Please take precautions to avoid fall Follow the diet as advised Please keep appointment due to healthcare providers Pending Studies at Discharge: No Stand-Alone Forms: My [employer], Smoking Cessation Medications and DC Order Prescriptions: Continued docusate sodium [Colace] 100 mg Capsule 200 mg PO BID trazodone 50 mg tablet 50 mg PO HS letrozole 2.5 mg tablet 2.5 mg PO DAILY Kisqali 400 mg/day (200 mg x 2) tablet 400 mg PO DAILY Rx Instructions: FOR 21 DAYS AND THEN 7 DAYS OFF IN 28DAY CYCLE. omeprazole 20 mg Tablet,Delayed Release (Dr/Ec) 20 mg PO BID polyethylene glycol 3350 [Miralax] 17 gram Powder In Packet 17 g PO DAILY Qty: 30 0RF Discharge Orders: Discharge Order (Routine); Ordered 08/16/23 Ordered By: Eyal Berkowitz/Other Patient Handouts: Small Bowel Obstruction Admission Data Admit Date/Time: 08/13/23 06:15 Attending Provider: Eyal Castellon Admit Provider: Darryl Gottlieb Primary Care Provider: Susie White Other Providers: Darryl Gottlieb; Akira Romero Other Interventions: Discharge Summary Assessment (RN) Last Done: 08/16/23 11:40
--- NOTE | 2023-08-19 13:21 | Coding Query ---
CODING QUERY To promote full compliance with coding requirements relating to patient care, provider participation is requested in all cases of ocean forwarder uncertainty. Please assist us with the question(s) below: Coding Question(s): There is documentation in the record, on the 08/14 Surgery Progress Note of, "PPI for gastric irritation with evidence for bleeding. I added this order this am. Initiate a clamping trial on NGT. Leave clamped for 4 hours, then check residuals. If residuals are less than 100 cc patient may have ice chips. Leave NGT in place until surgery sees in the a.m.". Please specify below, in your clinical opinion, regarding the gastric irritation with evidence for bleeding: ( ) Unspecified gastric bleeding, Not a complication of the NG tube procedure ( ) Gastric Bleeding likely a complication of NG tube procedure ( x ) Gastric Bleeding likely due to other: Please Specify NGT in the stomach for multiple days, patient NPO (not a complication of the procedure itself but sequelae of the NGT being present for some time) Physician's Response(s): Thank you Berta Yusuf Principal Diagnosis: "that condition established after study, to be chiefly responsible for occasioning the admission of the patient to the hospital for care." Co-Existing Principal Diagnosis: "when two or more diagnoses equally meet the criteria for principal diagnosis as determined by the circumstances of admission, diagnostic work up, and/or therapy provided, and the Alphabetic Index, Tabular List, or another coding guideline does not provide sequencing direction, any one of the diagnoses may be sequenced first." "When the physician has documented what appears to be a current diagnosis in the body of the record, but has not included the diagnosis in the final diagnostic statement, the physician should be asked whether the diagnosis should be added." (Source [facility]oding [facility] 2 QTR90. p3-4) BRENDA
--- NOTE | 2023-08-19 13:27 | Coding Query ---
CODING QUERY To promote full compliance with coding requirements relating to patient care, provider participation is requested in all cases of flasher adjuster uncertainty. Please assist us with the question(s) below: Coding Question(s): There is documentation in the record, as on the 08/13 Hospitalist Progress Note of, "Complaint sore throat Mostly on the right side Likely secondary to irritation from the NG tube Will try lidocaine viscous", and on the 08/15 Surgery Progress Note of, "Her NG tube was removed yesterday due to severe throat irritation". Please specify below, in your clinical opinion, regarding sore throat/severe throat irritation: ( ) likely postprocedural pain, not a complication ( ) likely a postprocedural complication of pain ( X ) Other: Please Specify__common side effect of having an NGT in. Most people will have throat irritation with the tube. Physician's Response(s): Thank you Berta Yusuf Principal Diagnosis: "that condition established after study, to be chiefly responsible for occasioning the admission of the patient to the hospital for care." Co-Existing Principal Diagnosis: "when two or more diagnoses equally meet the criteria for principal diagnosis as determined by the circumstances of admission, diagnostic work up, and/or therapy provided, and the Alphabetic Index, Tabular List, or another coding guideline does not provide sequencing direction, any one of the diagnoses may be sequenced first." "When the physician has documented what appears to be a current diagnosis in the body of the record, but has not included the diagnosis in the final diagnostic statement, the physician should be asked whether the diagnosis should be added." (Source Coding [facility] 2 QTR90. p3-4) BRENDA
== END 2023-08-16 12:13 | disposition home or self-care (01) | DRG 389 ==
LOC: ED 21:33 → EDINP 08-13 06:15 → 3W 08-13 10:02

== ENCOUNTER 2023-08-29 23:55 | Inpatient (IN) ==
[2023-08-30] MEDS ORDERED: ONDANSETRON INJ 2 MG/ML 2 ML VIAL IV STA (00:11)
[2023-08-30] MEDS ORDERED: SODIUM CHLORIDE 0.9% 1,000 ML IV SCH ×2 (00:15→03:00)
[2023-08-30] MEDS: HYDROmorphone INJ 0.5 MG/0.5 ML SYR IV PRN ×3 (00:32→04:23)
--- NOTE | 2023-08-30 00:39 | Emergency Department Note ---
History of Present Illness General Chief complaint: Abdominal Pain Stated complaint: ABDOMINAL PAIN Time Seen by Provider: 08/30/23 00:03 History of Present Illness Maximum Pain Intensity: 8 This is a 52-year-old female presenting to the emergency department for evaluation of abdominal pain, nausea, and vomiting for the past several hours. Patient symptoms began shortly after eating dinner this evening. She rates her current discomfort an 8/10. Patient was seen by myself earlier this month where she was diagnosed with a small bowel obstruction and admitted to the facility. She did respond with conservative treatment and was discharged home. Patient has been doing well until this evening when the symptoms seem to return. Home Medications Medication Instructions Recorded Confirmed Type letrozole 2.5 mg tablet 2.5 mg PO DAILY 07/03/23 08/30/23 History omeprazole 20 mg tablet,delayed 20 mg PO BID 07/03/23 08/30/23 History release ribociclib 400 mg/day (200 mg x 2) 400 mg PO DAILY 07/03/23 08/30/23 History tablets (Kisqali) trazodone 50 mg tablet 50 mg PO HS 07/03/23 08/30/23 History polyethylene glycol 3350 17 gram 17 g PO DAILY #30 ea 07/05/23 08/30/23 Rx oral powder packet (Miralax) docusate sodium 100 mg capsule 200 mg PO BID 08/12/23 08/30/23 History (Colace) Allergies Allergy/AdvReac Type Severity Reaction Status Date / Time No Known Allergies Allergy Verified 08/30/23 00:43 Past Med/Surg History Medical History (Updated 08/30/23 @ 04:55 by Amando Dupree PA-C) Sarcoidosis Breast cancer (03/21/12) "Self detected right breast mass Status post right breast ultrasound and core needle biopsy revealing invasive ductal carcinoma with extensive DCIS and invasive lobular carcinoma estrogen receptor positive, progesterone receptor positive, and HER-2/rashida negative Status post right mastectomy and axillary dissection with left prophylactic mastectomy Stage pT3 bN3 M0 Status post systemic chemotherapy with TAC Status post completion of radiation therapy 01/25/2013 received 5920 cGy Status post placement of permanent implants " Surgical History Hx laparoscopic cholecystectomy (10/02/19) Laparoscopic Cholecystectomy with Cholangiogram Dr. Vargas 10/02/19 History of D&C History of esophagogastroduodenoscopy (EGD) 11/2018 dx gastritis History of bronchoscopy History of oophorectomy History of bilateral mastectomy 04/21/2012 Right mastectomy with right axillary lymph node dissectiona nd left prophylactic mastectomy 04/21/12 Dr. Carbajal at [facility] Family History Father Alive and well Mother Alzheimer disease Denies family history of Heart disease Breast cancer Social History Smoking Status: Never smoker Do You Dip or Chew Tobacco: No; Hx Alcohol Use: No Hx Substance Use: No Preferred Language: Swedish Communication Ability: Effective Insole Channeler Required: No Beliefs That Will Affect Care: None marital status: Current Living Situation: Spouse Feels Safe at Home: Yes Assistive Devices: None Review of Systems A total of 10 systems reviewed and were otherwise negative Physical Exam Vital Signs Vital Signs - 24 hr 08/29/23 23:59 08/30/23 02:40 08/30/23 04:00 Temperature 36.7 C Temperature Source Temporal Artery Scan Pulse Rate 84 Pulse Rate [Apical] 72 Pulse Rhythm Regular Pulse Rhythm [Apical] Regular Pulse Strength Normal Respiratory Rate 20 18 18 Respiratory Effort / Characteristics Non-Labored Spontaneous Non-Labored Spontaneous Non-Labored Spontaneous Respiratory Depth Normal Normal Normal Respiratory Pattern Regular Blood Pressure 140/84 Blood Pressure [Left Arm] 136/86 126/77 Blood Pressure Mean 102 Blood Pressure Mean [Left Arm] 102 93 Blood Pressure Position Sitting Pulse Oximetry 99 99 96 Oxygen Delivery Method Room Air Room Air Room Air Sepsis Recent Fever Within 48 Hours No Sepsis New/Unexplained Change in Mental Status No Sepsis Action Taken by Nursing No Action Required VITALS: Vitals are noted on the nurse's note and reviewed by myself. Vital signs stable. GENERAL: Well-developed, well-nourished, white female, who is actively vomiting in the bathroom upon my arrival to the room. HEAD: Normocephalic atraumatic. NECK: Supple without nuchal rigidity. No lymphadenopathy. No thyromegaly. Cervical spine is nontender. HEART: Regular rate and rhythm without murmurs gallops or rubs. LUNGS: Clear to auscultation bilaterally without wheezes, rales or rhonchi. No retractions or accessory muscle use. ABDOMEN: Positive normal bowel sounds x 4. Soft, nontender, without masses or organomegaly. Course Administered Medications Hydromorphone HCl (Hydromorphone Inj 0.5 Mg/0.5 Ml Syr) 0.5 mg IV Q30M PRN PRN Reason: Pain Stop: 09/13/23 00:10 Last Admin: 08/30/23 04:23 Dose: 0.5 mg Documented By: [facility] Admin: 08/30/23 01:30 Dose: 0.5 mg Documented By: [facility] Admin: 08/30/23 00:32 Dose: 0.5 mg Documented By: [facility] Sodium Chloride (Nss) 1,000 mls @ 100 mls/hr IV .Q10H DINORA Stop: 09/29/23 02:59 Last Admin: 08/30/23 04:24 Dose: 100 mls/hr Documented By: [facility] Discontinued Medications Sodium Chloride (Nss) 1,000 mls @ 999 mls/hr IV .Q1H1M DINORA Stop: 08/30/23 01:15 Last Infusion: 08/30/23 01:25 Dose: Infused Documented By: [facility] Admin: 08/30/23 00:33 Dose: 999 mls/hr Documented By: [facility] Ondansetron HCl (Ondansetron Inj 2 Mg/Ml 2 Ml Vial) 4 mg IV NOW STA Stop: 08/30/23 00:12 Last Admin: 08/30/23 00:33 Dose: 4 mg Documented By: [facility] Medical Decision Making Differential Diagnosis Differential diagnosis: Etiologies such as gastroenteritis, food borne illness, infections, appendicitis, diverticulitis, inflammatory bowel disease, obstruction, GI bleed, biliary pathology, cardiac process, intracranial process, as well as others were entertained. Laboratory Data 08/30/23 00:28 08/30/23 00:28 Lab Results 08/30/23 08/30/23 08/30/23 Range/Units 00:28 01:08 04:27 WBC 4.49 L (4.8-10.8) K/ul RBC 4.83 (4.20-5.40) M/uL Hgb 15.4 (12.0-16.0) g/dl Hct 44.8 (37.0-47.0) % MCV 92.8 (80.0-100.0) fL MCH 31.9 (25.0-34.0) pg MCHC 34.4 (32.0-36.0) g/dL RDW Std Deviation 42.2 (36.4-46.3) fL RDW Coeff of Salvatore 12.3 (11.5-14.5) % Plt Count 263 (130-400) K/uL MPV 9.8 (9.4-12.4) fL Immature Gran % (Auto) 0.7 % Neut % (Auto) 63.3 % Lymph % (Auto) 28.7 % Mcduffie % (Auto) 5.1 % Eos % (Auto) 1.3 % Baso % (Auto) 0.9 % Neut # (Auto) 2.84 (1.40-6.50) K/uL Lymph # (Auto) 1.29 (1.20-3.40) K/uL Mcduffie # (Auto) 0.23 (0.11-0.59) K/uL Eos # (Auto) 0.06 (0.00-0.50) K/uL Baso # (Auto) 0.04 (0.00-0.20) K/uL Immature Gran # (Auto) 0.03 (0.01-0.20) K/uL Sodium 140 (136-145) mmol/L Potassium 3.5 (3.5-5.1) mmol/L Chloride 102 (98-107) mmol/L Carbon Dioxide 26 (21-32) mmol/L Anion Gap 12 H (3-11) BUN 13 (6-23) mg/dl Creatinine 1.31 H (0.6-1.2) mg/dl Est Cr Clr Drug Dosing 53.6 ml/min Est GFR ( Amer) 54.9 ml/min Est GFR (Non-Af Amer) 47.4 ml/min BUN/Creatinine Ratio 9.9 L (10-20) Glucose 109 H (70-99(Fasting)) mg/dl Calcium 10.1 (8.6-10.3) mg/dl Total Bilirubin 0.4 (0.2-1.0) mg/dl AST 18 (13-39) U/L ALT 11 (7-52) U/L Alkaline Phosphatase 50 (34-104) U/L Total Protein 8.3 (6.0-8.3) gm/dl Albumin 4.8 (3.4-5.0) gm/dl Globulin 3.5 (2.5-4.0) gm/dl Albumin/Globulin Ratio 1.4 (0.9-2) Lipase 41 (11-82) U/L Urine Color Yellow Urine Appearance Clear (Clear) Urine pH 6.0 (4.5-7.5) Ur Specific [place] 1.023 (1.000-1.030) Urine Protein Trace H (Negative) Urine Glucose (UA) Negative (Negative) Urine Ketones Trace H (Negative) Urine Blood Negative (Negative) Urine Nitrite Negative (Negative) Urine Bilirubin Negative (Negative) Urine Urobilinogen Negative (Negative) Ur Leukocyte Esterase Negative (Negative) Urine WBC (Auto) 1-5 (0-5) /hpf Urine RBC (Auto) 0-4 (0-4) /hpf U Hyaline Cast (Auto) 1-5 (0-5) /lpf U Epithel Cells (Auto) 5-10 H (0-5) /lpf Urine Bacteria (Auto) Negative (Negative) Adenovirus (PCR) Not Detected (NotDetected) B. pertussis DNA (PCR) Not Detected (NotDetected) B.parapertussis DNA PCR Not Detected (NotDetected) C. pneumoniae DNA (PCR) Not Detected (NotDetected) Coronavirus OC43 (PCR) Not Detected (NotDetected) Coronavirus HKU1 (PCR) Not Detected (NotDetected) Coronavirus 229E (PCR) Not Detected (NotDetected) SARS-CoV-2 (PCR) Not Detected (NotDetected) Coronavirus NL63 (PCR) Not Detected (NotDetected) Human Metapneumovir PCR Not Detected (NotDetected) Influenza Type A (PCR) Not Detected (NotDetected) Influenza Type B (PCR) Not Detected (NotDetected) M. pneumoniae (PCR) Not Detected (NotDetected) Parainfluenza 1 (PCR) Not Detected (NotDetected) Parainfluenza 2 (PCR) Not Detected (NotDetected) Parainfluenza 3 (PCR) Not Detected (NotDetected) Parainfluenza 4 (PCR) Not Detected (NotDetected) RSV (PCR) Not Detected (NotDetected) Entero/Rhino (PCR) Not Detected (NotDetected) Imaging Data Radiologist's Impression: Abdomen/Pelvis CT 08/30/23 01:02 Exam(s): CT ABDOMEN + PELVIS Without Contrast EXAM: CT Abdomen and Pelvis Without Intravenous Contrast CLINICAL HISTORY: n/v, hx sbo. TECHNIQUE: Axial computed tomography images of the abdomen and pelvis without intravenous contrast. CTDI is 22 mGy and DLP is 1056.42 mGy-cm. Automated exposure control was utilized for the study. A dose lowering technique was utilized adhering to the principles of ALARA. COMPARISON: CT abdomen and pelvis with contrast dated 08/12/2023; small bowel follow- through 08/15/2023 FINDINGS: Lung bases: Unremarkable. No mass. No consolidation. ABDOMEN: Liver: Unremarkable. Gallbladder and bile ducts: Cholecystectomy. No ductal dilation. Pancreas: Unremarkable. No ductal dilation. Spleen: Unremarkable. No splenomegaly. Adrenals: Unremarkable. No mass. Kidneys and ureters: Unremarkable. No obstructing stones. No hydronephrosis. Stomach and bowel: Diffuse fluid and gas distention of the small bowel throughout the abdomen and pelvis is noted with the small bowel measuring up to 3.5 cm in diameter. The transition point is suggested in the right lateral mid to inferior abdomen with asymmetric decompression of the distal small bowel loops in the right lower quadrant, similar in location to the prior examination. PELVIS: Appendix: No findings to suggest acute appendicitis. Bladder: Unremarkable. No stones. Reproductive: Unremarkable as visualized. ABDOMEN and PELVIS: Intraperitoneal space: Mild free fluid in the abdomen and pelvis, similar to slightly decreased from the previous examination. No loculation. No free air. Bones/joints: No acute fracture. No dislocation. Soft tissues: Similar mesenteric edema and fat stranding. Vasculature: Unremarkable. No abdominal aortic aneurysm. Lymph nodes: Unremarkable. No enlarged lymph nodes. IMPRESSION: 1. Diffuse fluid and gas distention of the small bowel throughout the abdomen and pelvis is noted with the small bowel measuring up to 3.5 cm in diameter. The transition point is suggested in the right lateral mid to inferior abdomen with asymmetric decompression of the distal small bowel loops in the right lower quadrant, similar in location to the prior examination. Findings are suspicious for recurrent at least partial mid to distal right small bowel obstruction. No pneumatosis or pneumoperitoneum. 2. Mild free fluid in the abdomen and pelvis, similar to slightly decreased from the previous examination. No loculation. Electronically signed by: Derek Marrero MD 08/30/23 02:07 AM [facility] Narrative Physical exam and history were performed. Nursing notes, EMR, and Medication List were personally reviewed. No social concerns were identified as barriers to patients care. Patient appears to have abdominal pain, nausea, and vomiting bringing her to the ER this evening. I did take care of the patient earlier this month with identical symptoms, where she was found to have a small bowel obstruction. Patient does appear uncomfortable on presentation and is actively vomiting in the bathroom. IV access was established and labs were obtained. She was hydrated with normal saline and given IV Dilaudid and IV Zofran. She was hydrated with normal saline. I did offer NG tube, however the patient would like to defer this currently. Patient's blood work is as above and was reviewed. She does not have a significantly elevated white blood cell count, gross anemia, bandemia, or significant electrolyte imbalance. Transaminases are not diagnostic. KUB was not obvious regarding her diagnosis, and because of that she was sent to CT scan for imaging of her belly. CT scan was reviewed by myself and radiology showing early small bowel obstruction. Case was discussed with both the on-call surgical team as well as the on-call hospitalist team. Please see their dictations for further patient course, plan, and disposition. The chart was completed utilizing [employer] Speech Voice Recognition Software. Grammatical errors, random word insertions, pronoun errors, and incomplete sentences are an occasional consequence of this system due to software limitations, ambient noise, and hardware issues. Any formal questions or concerns about the content, text, or information contained within the body of this dictation should be directly addressed to the provider for clarification. . Impression & Plan SBO (small bowel obstruction) Discharge Plan Visit Data Chief Complaint: Abdominal Pain Stated Complaint: ABDOMINAL PAIN ED Provider: Derrick Moss ED Midlevel Provider: Amando Dupree Discharge Problem: SBO (small bowel obstruction) Forms Stand Alone Forms: My [facility] [employer] Prescriptions Prescriptions: No Action docusate sodium [Colace] 100 mg Capsule 200 mg PO BID trazodone 50 mg tablet 50 mg PO HS letrozole 2.5 mg tablet 2.5 mg PO DAILY Kisqali 400 mg/day (200 mg x 2) tablet 400 mg PO DAILY Rx Instructions: FOR 21 DAYS AND THEN 7 DAYS OFF IN 28DAY CYCLE. omeprazole 20 mg Tablet,Delayed Release (Dr/Ec) 20 mg PO BID polyethylene glycol 3350 [Miralax] 17 gram Powder In Packet 17 g PO DAILY Qty: 30 0RF Referrals Referrals: Susie White MD [Primary Care Provider] -
[2023-08-30 00:51] LABS: Hematocrit (blood only) 44.8 % (37.0-47.0); Hemoglobin 15.4 g/dl (12.0-16.0); Mean Corpuscular Hemoglobin 31.9 pg (25.0-34.0); Mean Corpuscular Hgb Conc 34.4 g/dL (32.0-36.0); Mean Corpuscular Volume 92.8 fL (80.0-100.0); Mean Platelet Volume 9.8 fL (9.4-12.4); Platelet Count 263 K/uL (130-400); RDW Coefficient of Variation 12.3 % (11.5-14.5); RDW Standard Deviation 42.2 fL (36.4-46.3); Red Blood Count 4.83 M/uL (4.20-5.40); White Blood Count 4.49 K/ul (4.8-10.8)
[2023-08-30 01:04] LABS: Albumin Globulin Ratio 1.4 (0.9-2); Albumin Level 4.8 gm/dl (3.4-5.0); BUN Creatinine Ratio 9.9 (10-20); Bilirubin,Total 0.4 mg/dl (0.2-1.0); Calcium 10.1 mg/dl (8.6-10.3); Creatinine Clr Calc Pharmacy 53.6 ml/min; Est GFR (African American) 54.9 ml/min; Est GFR (Non-African American) 47.4 ml/min; Globulin 3.5 gm/dl (2.5-4.0); Potassium 3.5 mmol/L (3.5-5.1); Total Protein 8.3 gm/dl (6.0-8.3)
[2023-08-30 01:45] LABS: Basophils # (auto) 0.04 K/uL (0.00-0.20); Basophils % (auto) 0.9 %; Eosinophils # (auto) 0.06 K/uL (0.00-0.50); Eosinophils % (auto) 1.3 %; Immature Granulocytes # (auto) 0.03 K/uL (0.01-0.20); Immature Granulocytes % (auto) 0.7 %; Lymphocytes # (auto) 1.29 K/uL (1.20-3.40); Lymphocytes % (auto) 28.7 %; Monocytes # (auto) 0.23 K/uL (0.11-0.59); Monocytes % (auto) 5.1 %; Neutrophils # (auto) 2.84 K/uL (1.40-6.50); Neutrophils % (auto) 63.3 %
[2023-08-30 02:04] LABS: Adenovirus PCR Not Detected (NotDetected); Bordetella parapertussis PCR Not Detected (NotDetected); Bordetella pertussis PCR Not Detected (NotDetected); Chlamydia pneumoniae PCR Not Detected (NotDetected); Coronavirus 229E PCR Not Detected (NotDetected); Coronavirus CoV-2 (COVID19)PCR Not Detected (NotDetected); Coronavirus HKU1 PCR Not Detected (NotDetected); Coronavirus NL63 PCR Not Detected (NotDetected); Coronavirus OC43PCR Not Detected (NotDetected); Human Metapneumovirus PCR Not Detected (NotDetected); Influenza A PCR Not Detected (NotDetected); Influenza B PCR Not Detected (NotDetected); Mycoplasma pneumoniae PCR Not Detected (NotDetected); Parainfluenza Virus 1 PCR Not Detected (NotDetected); Parainfluenza Virus 2 PCR Not Detected (NotDetected); Parainfluenza Virus 3 PCR Not Detected (NotDetected); Parainfluenza Virus 4 PCR Not Detected (NotDetected); Respiratory Syncytial VirusPCR Not Detected (NotDetected); Rhinovirus/Enterovirus PCR Not Detected (NotDetected)
--- NOTE | 2023-08-30 02:08 | CT Scan Report ---
Exam(s): CT ABDOMEN + PELVIS Without Contrast EXAM: CT Abdomen and Pelvis Without Intravenous Contrast CLINICAL HISTORY: n/v, hx sbo. TECHNIQUE: Axial computed tomography images of the abdomen and pelvis without intravenous contrast. CTDI is 22 mGy and DLP is 1056.42 mGy-cm. Automated exposure control was utilized for the study. A dose lowering technique was utilized adhering to the principles of ALARA. COMPARISON: CT abdomen and pelvis with contrast dated 08/12/2023; small bowel follow- through 08/15/2023 FINDINGS: Lung bases: Unremarkable. No mass. No consolidation. ABDOMEN: Liver: Unremarkable. Gallbladder and bile ducts: Cholecystectomy. No ductal dilation. Pancreas: Unremarkable. No ductal dilation. Spleen: Unremarkable. No splenomegaly. Adrenals: Unremarkable. No mass. Kidneys and ureters: Unremarkable. No obstructing stones. No hydronephrosis. Stomach and bowel: Diffuse fluid and gas distention of the small bowel throughout the abdomen and pelvis is noted with the small bowel measuring up to 3.5 cm in diameter. The transition point is suggested in the right lateral mid to inferior abdomen with asymmetric decompression of the distal small bowel loops in the right lower quadrant, similar in location to the prior examination. PELVIS: Appendix: No findings to suggest acute appendicitis. Bladder: Unremarkable. No stones. Reproductive: Unremarkable as visualized. ABDOMEN and PELVIS: Intraperitoneal space: Mild free fluid in the abdomen and pelvis, similar to slightly decreased from the previous examination. No loculation. No free air. Bones/joints: No acute fracture. No dislocation. Soft tissues: Similar mesenteric edema and fat stranding. Vasculature: Unremarkable. No abdominal aortic aneurysm. Lymph nodes: Unremarkable. No enlarged lymph nodes. IMPRESSION: 1. Diffuse fluid and gas distention of the small bowel throughout the abdomen and pelvis is noted with the small bowel measuring up to 3.5 cm in diameter. The transition point is suggested in the right lateral mid to inferior abdomen with asymmetric decompression of the distal small bowel loops in the right lower quadrant, similar in location to the prior examination. Findings are suspicious for recurrent at least partial mid to distal right small bowel obstruction. No pneumatosis or pneumoperitoneum. 2. Mild free fluid in the abdomen and pelvis, similar to slightly decreased from the previous examination. No loculation. Electronically signed by: Derek Marrero MD 08/30/23 02:07 AM
--- NOTE | 2023-08-30 02:39 | Surgery Consultation ---
Date of Consultation August 30, 2023 Assessment & Plan (1) SBO (small bowel obstruction): I discussed with the treating clinician the emergency department. The patient is being admitted on the hospitalist service. From surgery perspective we recommend care as follows: Provide analgesics Provide antiemetics Provide IV fluid for hydration Implement n.p.o. status Follow serial labs Follow serial abdominal exams I did discuss placement of an NG tube with the patient. The patient notes that she did have an NG tube with her most previous admission and she notes that the NG tube is quite uncomfortable and she would like to proceed with care without this modality at the present time. I did discuss with her that if her abdominal exam worsens or if she continues to have persistent nausea and vomiting this modality will need to be reconsidered and she expressed her understanding. For now we will attempt to treat her conservatively without NG tube. At the present time the patient is noted be normotensive without fever or tachycardia. She does not have leukocytosis. She does have a slight elevation of her creatinine but this may be on the basis of dehydration and will hopefully improve with hydration measures. Additional recommendations to be forthcoming based on her clinical course as unfolds History of Present Illness Reason for Consultation: Small bowel obstruction History of Present Illness This is a 52-year-old female who presented the emergency department secondary to abdominal pain. Patient says that she has diffuse abdominal pain that developed shortly after eating her evening meal. She had nausea and vomiting associated with this pain. She does report that she was previously admitted to the hospital for small bowel obstruction earlier this month which was treated successfully in a conservative manner. Patient says that prior to her current symptomatology beginning she had diarrhea for 2 to 3 days ago and has not had a bowel movement since. She says she has been passing some flatus. Patient does report previous abdominal surgeries in the form of a cholecystectomy and an oophorectomy. She notes that she has had multiple small bowel obstructions which have occurred in April and June 2023 as well as August of this year. In addition, the patient notes that she has breast cancer that she says is now metastatic to her abdomen. Since arrival to the hospital the patient has had labs and imaging which I independently reviewed. CT scan of the abdomen pelvis was performed at this showed diffuse fluid and gas distention of the small bowel throughout the abdomen and pelvis. There is a transition point suggested in the right lateral mid to inferior abdomen decompression of small bowel distal to this. This was n oted to be similar to what was noted during her previous small bowel obstruction. These findings were can concerning for recurrent partial small bowel obstruction. There is no pneumatosis or free air noted. There is a mild amount of free fluid in the abdomen and pelvis which was noted to be slightly decreased from previous CT scans. Labs include a CBC her white blood cell count was nonelevated at 4.4. Her hemoglobin and hematocrit along with the platelet count were normal. Chemistry profile showed sodium and potassium were normal. BUN was noted to be normal. Creatinine had a slight elevation at 1.3. There is no elevation of patient's LFTs or lipase. A bio fire test was performed which was negative for all viruses tested. At the time of my interview the patient was resting in bed and she did not appear to be in any distress. Allergies Allergy/AdvReac Type Severity Reaction Status Date / Time No Known Allergies Allergy Verified 08/30/23 00:43 Home Medications Medication Instructions Recorded Confirmed Type letrozole 2.5 mg tablet 2.5 mg PO DAILY 07/03/23 08/30/23 History omeprazole 20 mg tablet,delayed 20 mg PO BID 07/03/23 08/30/23 History release ribociclib 400 mg/day (200 mg x 2) 400 mg PO DAILY 07/03/23 08/30/23 History tablets (Kisqali) trazodone 50 mg tablet 50 mg PO HS 07/03/23 08/30/23 History polyethylene glycol 3350 17 gram 17 g PO DAILY #30 ea 07/05/23 08/30/23 Rx oral powder packet (Miralax) docusate sodium 100 mg capsule 200 mg PO BID 08/12/23 08/30/23 History (Colace) Patient History Medical History (Updated 08/30/23 @ 04:55 by Amando Dupree PA-C) Sarcoidosis Breast cancer (03/21/12) "Self detected right breast mass Status post right breast ultrasound and core needle biopsy revealing invasive ductal carcinoma with extensive DCIS and invasive lobular carcinoma estrogen receptor positive, progesterone receptor positive, and HER-2/rashida negative Status post right mastectomy and axillary dissection with left prophylactic mastectomy Stage pT3 bN3 M0 Status post systemic chemotherapy with TAC Status post completion of radiation therapy 01/25/2013 received 5920 cGy Status post placement of permanent implants " Surgical History Hx laparoscopic cholecystectomy (10/02/19) Laparoscopic Cholecystectomy with Cholangiogram Dr. Vargas 10/02/19 History of D&C History of esophagogastroduodenoscopy (EGD) 11/2018 dx gastritis History of bronchoscopy History of oophorectomy History of bilateral mastectomy 04/21/2012 Right mastectomy with right axillary lymph node dissectiona nd left prophylactic mastectomy 04/21/12 Dr. Carbajal at [facility] Family History Father Alive and well Mother Alzheimer disease Denies family history of Heart disease Breast cancer Social History Smoking Status: Never smoker Do You Dip or Chew Tobacco: No; Hx Alcohol Use: No Hx Substance Use: No Preferred Language: Maori Communication Ability: Effective Unclaimed Property Officer Required: No Beliefs That Will Affect Care: None marital status: Current Living Situation: Spouse Other Information That Helps Us Care for You: No Feels Safe at Home: Yes Safety Concerns: Feels Safe At This Time Assistive Devices: None Review of Systems Constitutional: no fever and no chills Ear, Nose, Mouth, Throat: no hearing loss Respiratory: no cough and no dyspnea Cardiovascular: no chest pain Gastrointestinal: as per Subjective / HPI Genitourinary: no dysuria Musculoskeletal: no back pain Integumentary: no rash Neurologic: no localized weakness Physical Exam Constitutional: WD/WN, vitals as above Eyes: no conjunctival abnormality ENMT: Ears: no hearing impairment Mouth: no oropharynx abnormality Neck: trachea midline Respiratory: normal respiratory effort; no respiratory distress and no labored breathing Cardiovascular: Rate/Rhythm: regular rate and regular rhythm Gastrointestinal (Abdomen): Abdomen has mild distention noted. Bowel sounds are present. There is pain noted with palpation in a generalized fashion throughout her abdomen greatest to the right of the umbilicus. There is no rebound tenderness or guarding. Musculoskeletal: No calf tenderness Skin: no rashes Neurologic: moves all extremities Psychiatric: A+Ox3, euthymic affect Results & Data Vital Signs (Past 12 Hours) Vital Signs Temp Pulse Resp BP Pulse Ox O2 Del Method 08/29/23 23:59 36.7 C 84 20 140/84 99 Room Air PG Care Time/CCT Total # of Minutes Spent Total Time Spent with Patient: Total time spent is greater than 50% in coordination of care (as documented) at patient's floor/unit and/or counseling patient: Coding Level of Care Code 87645 IN/OBS CONSULT LVL 5,80M Diagnoses SBO (small bowel obstruction) K56.609
--- NOTE | 2023-08-30 03:40 | History & Physical Report ---
Date of Service August 30, 2023 Assessment & Plan (1) SBO (small bowel obstruction): Plan: 52 yr old Female with PMH of hyperlipidemia, left multifocal metastatic breast Cancer stage IIIc s/p bilateral mastectomy with reconstruction and on chemo, CKD stage III and sarcoidosis presents with abdominal pain and found to have recurrent small bowel obstruction. Patient was recently in the hospital for small bowel obstruction improved with conservative management. She had a small bowel follow-through which did not show any obstruction last admission. She is also advised to not continue stool softeners. But she developed constipation. Followed-up with PCP and she started back on MiraLAX. And then she had diarrhea for 3 days until last Tuesday. Then she stopped stool softeners. Did not had bowel movement since Tuesday. But she is passing gas. Tonight again developed severe abdominal pain associate with nausea and vomitings. Which prompted her come to the ER. Second vomitus contained only bile. Currently with pain medication pain is improved. Denies any chest pain or shortness of breath. No cough. No fevers. Micturating okay. Denies any headache. No blurred visions. No earache or runny nose or sore throat. Hemodynamically stable. Small bowel obstruction Recurrent N.p.o. IV fluids IV Dilaudid as needed IV antiemetics as needed Surgery consulted Monitor in medical floor History of metastatic breast cancer stage IIIc s/p bilateral mastectomies On letrozole and Kisqali. Patient had a EGD which showed gastric ulcers and pathology was consistent with breast primary Heme-onc to continue current medications and follow-up EGD in August 2023 Patient is going to have second opinion with [facility] as per heme-onc notes seems at the end of this month TYRON on CKD stage III Presented with creatinine 1.3 Baseline creatinine around 1 Avoid nephrotoxic agents We will follow labs Sarcoidosis Seems currently not under treatment DVT prophylaxis Lovenox Disposition Med/surg Full code History of Present Illness Chief Complaint: Abdominal pain Primary Care Provider: Susie White MD 52 yr old Female with PMH of hyperlipidemia, left multifocal metastatic breast Cancer stage IIIc s/p bilateral mastectomy with reconstruction and on chemo, CKD stage III and sarcoidosis presents with abdominal pain and found to have recurrent small bowel obstruction. Patient was recently in the hospital for small bowel obstruction improved with conservative management. She had a small bowel follow-through which did not show any obstruction last admission. Seems also advised to not continue stool softeners. But she developed constipation. Followed-up with PCP and she started back on MiraLAX. And then she had diarrhea for 3 days until last Tuesday. Then she stopped stool softeners. Did not had bowel movement since Tuesday. But she is passing gas. Tonight again developed severe abdominal pain associated with nausea and vomitings. Which prompted her come to the ER. Second vomitus contained only bile. Currently with pain medication pain is improved. Denies any chest pain or shortness of breath. No cough. No fevers. Micturating okay. Denies any headache. No blurred visions. No earache or runny nose or sore throat. Hemodynamically stable. Past medical history. As mentioned above Past surgical history. Periprosthetic capsulectomy of the breast, breast reconstruction of bilateral breast, bronchoscopy, colonoscopy, dilatation curettage, EGD, EGD with endoscopic ultrasound, ERCP, exploratory laparotomy, laparoscopic cholecystectomy, laparoscopic oophorectomy, right mastectomy with right axillary lymph node dissection and prophylactic mastectomy, left ankle surgery, total abdominal hysterectomy with removal of tubes salpingo- oophorectomy. Social history. . No smoking. Alcohol occasional. No drug use. Family history. Mother had Alzheimer's disease and hypertension. Maternal grandmother had skin cancer. Sister had cancer. Aunt has colon cancer. Allergies Allergy/AdvReac Type Severity Reaction Status Date / Time No Known Allergies Allergy Verified 08/30/23 00:43 Home Medications Medication Instructions Recorded Confirmed Type letrozole 2.5 mg tablet 2.5 mg PO DAILY 07/03/23 08/30/23 History omeprazole 20 mg tablet,delayed 20 mg PO BID 07/03/23 08/30/23 History release ribociclib 400 mg/day (200 mg x 2) 400 mg PO DAILY 07/03/23 08/30/23 History tablets (Kisqali) trazodone 50 mg tablet 50 mg PO HS 07/03/23 08/30/23 History polyethylene glycol 3350 17 gram 17 g PO DAILY #30 ea 07/05/23 08/30/23 Rx oral powder packet (Miralax) docusate sodium 100 mg capsule 200 mg PO BID 08/12/23 08/30/23 History (Colace) Past Med/Surg History Medical History (Updated 08/30/23 @ 04:55 by Amando Dupree PA-C) Sarcoidosis Breast cancer (03/21/12) "Self detected right breast mass Status post right breast ultrasound and core needle biopsy revealing invasive ductal carcinoma with extensive DCIS and invasive lobular carcinoma estrogen receptor positive, progesterone receptor positive, and HER-2/rashida negative Status post right mastectomy and axillary dissection with left prophylactic mastectomy Stage pT3 bN3 M0 Status post systemic chemotherapy with TAC Status post completion of radiation therapy 01/25/2013 received 5920 cGy Status post placement of permanent implants " Surgical History Hx laparoscopic cholecystectomy (10/02/19) Laparoscopic Cholecystectomy with Cholangiogram Dr. Vargas 10/02/19 History of D&C History of esophagogastroduodenoscopy (EGD) 11/2018 dx gastritis History of bronchoscopy History of oophorectomy History of bilateral mastectomy 04/21/2012 Right mastectomy with right axillary lymph node dissectiona nd left prophylactic mastectomy 04/21/12 Dr. Carbajal at [facility] Family History Father Alive and well Mother Alzheimer disease Denies family history of Heart disease Breast cancer Social History Smoking Status: Never smoker Do You Dip or Chew Tobacco: No; Hx Alcohol Use: No Hx Substance Use: No Preferred Language: Albanian Communication Ability: Effective Building Appraiser Required: No Beliefs That Will Affect Care: None marital status: Current Living Situation: Spouse Other Information That Helps Us Care for You: No Feels Safe at Home: Yes Safety Concerns: Feels Safe At This Time Assistive Devices: None Review of Systems Review of Systems: All systems reviewed & are unremarkable except as noted in HPI & below Physical Exam Physical Exam: General-Not in distress Head- atraumatic Eyes- PERRL. ENT- oropharynx clear Neck- supple, no JVD. Lungs- clear to auscultation no wheezing or crackles. Heart- regular rate and rhythm; no murmur, no gallop. Abdomen- normal bowel sounds, soft, nontender, no distension Extremities- no pretibial edema, no erythema seen. Neuro- alert, oriented x 3; PERRL, no facial palsy; no dysarthria; moves extremities. Skin- warm & dry Results & Data Results & Data Vital Signs (Past 12 Hours) Vital Signs Temp Pulse Resp BP Pulse Ox O2 Del Method 08/29/23 23:59 36.7 C 84 20 140/84 99 Room Air Diagnostic Findings Laboratory Results WBC 4.49 K/ul (4.8-10.8) L 08/30/23 00:28 RBC 4.83 M/uL (4.20-5.40) 08/30/23 00:28 Hgb 15.4 g/dl (12.0-16.0) 08/30/23 00:28 Hct 44.8 % (37.0-47.0) 08/30/23 00: MCV 92.8 fL (80.0-100.0) 08/30/23 00: MCH 31.9 pg (25.0-34.0) 08/30/23 00: MCHC 34.4 g/dL (32.0-36.0) 08/30/23 00: RDW Std Deviation 42.2 fL (36.4-46.3) 08/30/23 00: RDW Coeff of Salvatore 12.3 % (11.5-14.5) 08/30/23 00: Plt Count 263 K/uL (130-400) 08/30/23: MPV 9.8 fL (9.4-12.4) 08/30/23 00: Immature Gran % (Auto) 0.7 % 08/30/23 00: Neut % (Auto) 63.3 % 08/30/23 00: Lymph % (Auto) 28.7 % 08/30/23 00:28 Walton % (Auto) 5.1 % 08/30/23 00: Eos % (Auto) 1.3 % 08/30/23 00: Baso % (Auto) 0.9 % 08/30/23: Neut # (Auto) 2.84 K/uL (1.40-6.50) 08/30/23 00: Lymph # (Auto) 1.29 K/uL (1.20-3.40) 08/30/23 00: Walton # (Auto) 0.23 K/uL (0.11-0.59) 08/30/23 00:28 Eos # (Auto) 0.06 K/uL (0.00-0.50) 08/30/23 00:28 Baso # (Auto) 0.04 K/uL (0.00-0.20) 08/30/23 00:28 Immature Gran # (Auto) 0.03 K/uL (0.01-0.20) 08/30/23 00:28 Sodium 140 mmol/L (136-145) 08/30/23 00: Potassium 3.5 mmol/L (3.5-5.1) 08/30/23 00: Chloride 102 mmol/L (98-107) 08/30/23 00: Carbon Dioxide 26 mmol/L (21-32) 08/30/23 00: Anion Gap 12 (3-11) H 08/30/23 00: BUN 13 mg/dl (6-23) 08/30/23 00: Creatinine 1.31 mg/dl (0.6-1.2) H 08/30/23 00: Est Cr Clr Drug Dosing 53.6 ml/min 08/30/23 00:28 Est GFR ( Amer) 54.9 ml/min 08/30/23 00: Est GFR (Non-Af Amer) 47.4 ml/min 08/30/23 00: BUN/Creatinine Ratio 9.9 (10-20) L 08/30/23 00: Glucose 109 mg/dl (70-99(Fasting)) H 08/30/23 00: Calcium 10.1 mg/dl (8.6-10.3) 08/30/23 00: Total Bilirubin 0.4 mg/dl (0.2-1.0) 08/30/23 00: AST 18 U/L (13-39) 08/30/23 00: ALT 11 U/L (7-52) 08/30/23: Alkaline Phosphatase 50 U/L (34-104) 08/30/23 00: Total Protein 8.3 gm/dl (6.0-8.3) 08/30/23 00: Albumin 4.8 gm/dl (3.4-5.0) 08/30/23:28 Globulin 3.5 gm/dl (2.5-4.0) 08/30/23 00:28 Albumin/Globulin Ratio 1.4 (0.9-2) 08/30/23 00:28 Lipase 41 U/L (11-82) 08/30/23 00:28 Adenovirus (PCR) Not Detected (NotDetected) 08/30/23 01:08 B. pertussis DNA (PCR) Not Detected (NotDetected) 08/30/23 01:08 B.parapertussis DNA PCR Not Detected (NotDetected) 08/30/23 01:08 C. pneumoniae DNA (PCR) Not Detected (NotDetected) 08/30/23 01:08 Coronavirus OC43 (PCR) Not Detected (NotDetected) 08/30/23 01:08 Coronavirus HKU1 (PCR) Not Detected (NotDetected) 08/30/23 01:08 Coronavirus 229E (PCR) Not Detected (NotDetected) 08/30/23 01:08 SARS-CoV-2 (PCR) Not Detected (NotDetected) 08/30/23 01:08 Coronavirus NL63 (PCR) Not Detected (NotDetected) 08/30/23 01:08 Human Metapneumovir PCR Not Detected (NotDetected) 08/30/23 01:08 Influenza Type A (PCR) Not Detected (NotDetected) 08/30/23 01:08 Influenza Type B (PCR) Not Detected (NotDetected) 08/30/23 01:08 M. pneumoniae (PCR) Not Detected (NotDetected) 08/30/23 01:08 Parainfluenza 1 (PCR) Not Detected (NotDetected) 08/30/23 01:08 Parainfluenza 2 (PCR) Not Detected (NotDetected) 08/30/23 01:08 Parainfluenza 3 (PCR) Not Detected (NotDetected) 08/30/23 01:08 Parainfluenza 4 (PCR) Not Detected (NotDetected) 08/30/23 01:08 RSV (PCR) Not Detected (NotDetected) 08/30/23 01:08 Entero/Rhino (PCR) Not Detected (NotDetected) 08/30/23 01:08 Impressions Abdomen/Pelvis CT 08/30/23 01:02 Exam(s): CT ABDOMEN + PELVIS Without Contrast EXAM: CT Abdomen and Pelvis Without Intravenous Contrast CLINICAL HISTORY: n/v, hx sbo. TECHNIQUE: Axial computed tomography images of the abdomen and pelvis without intravenous contrast. CTDI is 22 mGy and DLP is 1056.42 mGy-cm. Automated exposure control was utilized for the study. A dose lowering technique was utilized adhering to the principles of ALARA. COMPARISON: CT abdomen and pelvis with contrast dated 08/12/2023; small bowel follow- through 08/15/2023 FINDINGS: Lung bases: Unremarkable. No mass. No consolidation. ABDOMEN: Liver: Unremarkable. Gallbladder and bile ducts: Cholecystectomy. No ductal dilation. Pancreas: Unremarkable. No ductal dilation. Spleen: Unremarkable. No splenomegaly. Adrenals: Unremarkable. No mass. Kidneys and ureters: Unremarkable. No obstructing stones. No hydronephrosis. Stomach and bowel: Diffuse fluid and gas distention of the small bowel throughout the abdomen and pelvis is noted with the small bowel measuring up to 3.5 cm in diameter. The transition point is suggested in the right lateral mid to inferior abdomen with asymmetric decompression of the distal small bowel loops in the right lower quadrant, similar in location to the prior examination. PELVIS: Appendix: No findings to suggest acute appendicitis. Bladder: Unremarkable. No stones. Reproductive: Unremarkable as visualized. ABDOMEN and PELVIS: Intraperitoneal space: Mild free fluid in the abdomen and pelvis, similar to slightly decreased from the previous examination. No loculation. No free air. Bones/joints: No acute fracture. No dislocation. Soft tissues: Similar mesenteric edema and fat stranding. Vasculature: Unremarkable. No abdominal aortic aneurysm. Lymph nodes: Unremarkable. No enlarged lymph nodes. IMPRESSION: 1. Diffuse fluid and gas distention of the small bowel throughout the abdomen and pelvis is noted with the small bowel measuring up to 3.5 cm in diameter. The transition point is suggested in the right lateral mid to inferior abdomen with asymmetric decompression of the distal small bowel loops in the right lower quadrant, similar in location to the prior examination. Findings are suspicious for recurrent at least partial mid to distal right small bowel obstruction. No pneumatosis or pneumoperitoneum. 2. Mild free fluid in the abdomen and pelvis, similar to slightly decreased from the previous examination. No loculation. Electronically signed by: Derek Marrero MD 08/30/23 02:07 AM Code Status & VTE Plan VTE Prophylaxis Plan VTE Prophylaxis will be ordered: Yes
[2023-08-30 04:49] LABS: Appearance Urine Clear (Clear); Bacteria Urine Automated Negative (Negative); Bilirubin Urine Negative (Negative); Blood Urine Negative (Negative); Color Urine Yellow; Glucose Urine UA Negative (Negative); Ketones Urine Trace (Negative); Leukocyte Esterase Urine Negative (Negative); Nitrite Urine Negative (Negative); Protein Urine Trace (Negative); RBC Urine Automated 0-4 /hpf (0-4); Specific Gravity Urine 1.023 (1.000-1.030); Urobilinogen Urine Negative (Negative)
[2023-08-30] MEDS ORDERED: ACETAMINOPHEN 325 MG TAB PO PRN (05:36)
[2023-08-30] MEDS ORDERED: HYDROmorphone INJ 0.5 MG/0.5 ML SYR IV PRN (05:36)
[2023-08-30] MEDS: ONDANSETRON INJ 2 MG/ML 2 ML VIAL IV PRN ×2 (05:58→20:27)
[2023-08-30] MEDS: D5W AND 1/2NSS 1,000 ML IV SCH ×3 (05:58→20:28)
--- NOTE | 2023-08-30 06:41 | XRay Report ---
KUB CLINICAL HISTORY: Nausea and vomiting. History of small bowel obstruction. COMPARISON STUDY: CT of the abdomen and pelvis August 12, 2023. KUB August 13, 2023. FINDINGS: There are cholecystectomy clips. Multiple dilated loops of small bowel measure up to 3.9 cm in caliber. No evidence for free air on supine exam. No radiographic evidence for pneumatosis or por wesley venous gas. IMPRESSION: Findings consistent with a small bowel obstruction. ACT 112: Negative or not required by law. Electronically signed by: Neil Lmeus M.D. 08/30/2023 6:40 AM
--- OUTSIDE RECORDS SUMMARY | 2023-08-30 07:27 | External Medical Summary | Summary of Care ---
Author Name Unknown Organization [facility] Address [address] [facility] [place] [address] Phone [phone] Care Team Providers Care Scissors Sharpener Name Role Phone Susie Ochoa MD Primary Care Provider [phone] Reason for Visit * Reason Onset Date Comments Hospital Follow-Up [facility] discharg e 08/16/2023 follow up. Small bowel obstruction, patient states doing better. Hospital Follow-Up 08/19/2023 Encounter Details Date Type Department Care Team (Late st Contact Info) Description 08/19/2023 9:00 AM EST Office Visit General Internal Medicine [address] [address] [place] [address] [place] [address] Susie Ochoa MD [address] [place] [address] S/p small bowel obstruction*; Hospital discharge follow-up; Intermittent small bowel obstruction due to adhesions (HCC); Malignant neoplasm of overlapping sites of both breasts in female, estrogen receptor positive ; Stage 3a chronic kidney disease (HCC); Sarcoidosis; Post-mastectomy lymphedema syndrome; H/O small bowel obstruction; Adjustment insomnia; Liver lesion; Hyperlipidemia with target LDL less than 130; Microscopic hematuria; Family hx of melanoma Allergies No known active allergiesdocumented as of this encounter (statuses as of 08/19/2023) Medications Medication Sig Dispensed Refills Start Date End Date Status Calcium 600 MG Oral TabletIndications:Vi tamin D deficiency Take by mouth. 100 Tab 11 09/08/2012 Active traZODone HCl 50 MG Oral Tablet (Desyrel)Indications :Other insomnia Take 1 Tablet by mouth at bedtime. 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 90 Tablet 3 10/12/2022 Active Kisqali (400 MG Dose) 200 MG Oral Tablet Therapy Pack (Ribociclib Succ (400 MG Dose))Indications:Ma lignant neoplasm of overlapping sites of both breasts [...] at night if needed 0 07/18/2023 Active Docusate Sodium 100 MG Oral Capsule (Colace) Take 1 Capsule by mouth in the morning and 1 Capsule before bedtime. 0 08/12/2023 4 Discontinued documented as of this encounter (statuses as of 08/19/2023) Active Problems Problem Noted Date Diagnosed Date Intermittent small bowel obstruction due to adhe sions 07/18/2023 Family hx of melanoma 05/26/2023 Overview: Sister Stage 3a chronic kidney disease 06/16/2020 Overview: Per CKD protocol - Per CKD protocol Adjustment insomnia 01/24/2020 Liver lesion 10/19/2019 Microscopic hematuria 12/04/2014 Overview: Insignificant. Hyperlipidemia with [...] as of this encounter (statuses as of 08/19/2023) Resolved Problems Problem Noted Date Diagnosed Date Resolved Date Neutropenia 01/24/2020 11/10/2020 Kidney disease, chronic, sta ge III (GFR 30-59 ml/min) 01/14/2020 06/19/2020 Overview: Per CKD protocol Intra-abdominal lymphadenopathy 10/19/2019 08/19/2023 Metastatic cancer to intra-a bdominal lymph nodes 10/12/2019 08/19/2023 Overview: Not resolved Encounter for antineoplastic chemotherapy 05/19/2012 12/27/2017 Encounter [...] CRC Name: Molly LIND Contact PI or BACK TENDER INSULATION BOARD regarding any serious medical event, if new [...] Infante MD PI CRC Name: Molly Chowdhury [facility] Contact PI or BACK TENDER INSULATION BOARD regarding any serious medical event, if new Rx given, ER visit, hospitalization, or billing question Diagnosis changed due to Research Module. Go to Snapshot for study details. 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 10/13/2019 documented as of this encounter (statuses as of 08/19/2023) Immunizations Name Administration Dates Next Due COVID-19 mRNA, LNP-s, No Pre serve, 2-Dose Series (Moderna) 02/02/2022,05/11/2021,10/04/2020,08/30 COVID-19, MRNA-LNP, 23-24, P F, 50 MCG/0.5 mL, 12 YRS AND ABOVE, IM (MODERNA-Spikevax) 06/12/2023 Covid-19, Mrna, Lnp-s, Pf, B ivalent, 50 Mcg, IM, 12 yrs and above (Moderna) 07/28/2022 Pneumococcal Conjugate Vacc, 13 Valent (Prevnar) 05/26/2020 Pneumococcal Polysaccharide PPV23 (Pneumovax) 10/01/2021 Season Influenza, Cell Cultu re, 18+ Yrs, With Preserv (Flucelvax) 06/12/2023 Seasonal Influenza Virus Vac cine, Unspecified Formulation 06/12/2023,06/17/2022,10/01/2021,05/26,06/01/2019 Seasonal Influenza, PF, 6 M & above, [...] Sign Reading Time Taken Comments Blood Pressure 112/62 08/19/2023 8:55 AM EST Pulse 77 08/19/2023 8:55 AM EST Temperature 36.8 C (98.3 F) 08/19/2023 8:55 AM ES T Respiratory Rate - - Oxygen Saturation 99% 08/19/2023 8:55 AM EST Inhaled Oxygen Concentration - - Weight 78.1 kg (172 lb 1.6 oz) 08/19/2023 8:55 A M EST Height 170.8 cm (5' 7.25") 08/19/2023 8:55 AM ES T Body Mass Index 26.75 08/19/2023 8:55 AM EST documented in this encounter Progress Notes * Susie Ochoa MD - 08/19/2023 9:06 AM EST SUBJECTIVE: Shante Cordoba is a 52 year old female. Chief Complaint Patient presents with Hospital Follow-Up [facility] discharge 08/16/2023 follow up. Small bowel obstruction, patient states doing better. HPI: 52-year-old female with PMH significant for left multifocal breast cancer stage IIIC s/p bilateral mastectomy with reconstruction and undergoing chemo presents here for hospital follow up. Pt was having increasing abdominal discomfort for couple days, but was having liquid through her rectum due to MiraLax and Senokot so was not sure whether she was constipated. She did notice some pellets sometimes as well. Soon after she developed worsening abdominal pain with nausea and vomiting and went to hospital for evaluation . Presented to hospital on 08/13/23 . She was found to have recurrent SBO. She was then admitted and treated with IV fluids, NPO and NG tube placement this time. Labs were overall normal and Imaging CT of abdomen/pelvis showed evidence of SBO with transition point atright lower quadrant, no evidence of appendicitis or diverticulitis but did not show any intra-abdominal lymph node adenopathy or mass. She was seen by surgery and recommended conservative management. She did undergo small-bowel follow-through which did not show any anatomical reason for obstruction . Rest of the hospital course unremarkable . She was sent home on 08/16/23 on home medications. Since discharge feeling better . Hospital records reviewed and updated. The patient's medication list was reviewed and updated as needed. Current issues now- -when surgeon saw her he told her that she may not want to take MiraLax and Senokot on regular basis which might be making her things worse so she has not been taking any of those and has not had BM for last 3 days. No abdominal pain as of yet -she has appointment with [facility] regarding her recurrence of breast cancer end of this month Patient Active Problem List Diagnosis Code Malignant [...] disease N18.31 Family hx of melanoma Z80.8 H/O small bowel obstruction Z87.19 Current Outpatient Medications Medication Sig Dispense Refill [...] 1 Packet by mouth in the morning. (Patient not taking: Reported on 08/19/2023) Sennosides-Docusate Sodium 8.6-50 MG Oral Capsule Take 2 Tablets by mouth daily. Add 2 more at night if needed (Patient not taking: Reported on 08/19/2023) No current facility-administered medications for this visit. Review of patient's allergies indicates: No Known Allergies Past Medical History: Diagnosis Date Breast cancer (HCC) invasive ductal Hematuria, microscopic 2014 intermittent resolved now Sarcoidosis Past Surgical History: Procedure Laterality Date BREAST CAPSULECTOMY, PERIPROSTHETIC 07/02/2013 PERIPROSTHETIC CAPSULECTOMY BREAST performed by Delio Chan MD at OR [facility] BREAST RECONSTRUCTION 04/21/2012 I 04/21/2012 mmediate reconstruction of bilateral breasts with adjustable implant to be utilized for expansion and acellular dermal matrix 04/21/12 Dr. Chan at [facility] BRONCHOSCOPY, DIAGNOSTIC N/A 01/28/2016 BRONCHOSCOPY DIAGNOSTIC WITH OR WITHOUT WASHING performed by Bill Farmer MD at ENDOSCOPY [facility] COLONOSCOPY, DIAGNOSTIC (RECTUM) 05/09/2023 biopsies show benign polyp/recall 5 years/COLONOSCOPY FLEXIBLE PROXIMAL DIAGNOSTIC performed by Raheem Hagen MD at ENDOSCOPY [facility] DILATION AND CURETTAGE (D&C) 06/2008 D&C at [place], [place] EGD, FLEXIBLE, DIAGNOSTIC 11/23/2018 gastritis/ESOPHAGOGASTRODUODENOSCOPY (EGD), FLEXIBLE, TRANSORAL, DIAGNOSTIC performed by Lavelle Ruiz MD at ENDOSCOPY [facility] EGD, FLEXIBLE, DIAGNOSTIC 06/07/2023 ESOPHAGOGASTRODUODENOSCOPY (EGD), FLEXIBLE, TRANSORAL, DIAGNOSTIC performed by Kelsey Goldstein DO at ENDOSCOPY [facility] EGD, FLEXIBLE,W/ENDOSCOPIC US 10/03/2019 lymph node, peripancreatic bx - metastatic cancer, IPMN / INPT [facility] ERCP 10/03/2019 choledocholithiasis / INPT [facility] EXPLORATION OF ABDOMEN 01/14/2014 EXPLORATORY LAPAROTOMY performed by Danae Ceron MD at OR [facility] LAPAROSCOPY; CHOLECYSTECTOMY 09/2019 LAPAROSCOPY;RMV ADNEXAL STRUCT 01/14/2014 LAPAROSCOPIC OOPHORECTOMY AND OR SALPINGECTOMY performed by Danae Ceron MD at [facility] MASTECTOMY, MODIFIED RADICAL 04/21/2012 04/21/2012 Right mastectomy with right axillary lymph node dissectiona nd left prophylactic mastectomy 04/21/12 Dr. Carbajal at [facility] MASTECTOMY,RADICAL 2011 OTHER (INFORMATION) 11/1986 Left ankle surgery, [place], [place] OVARY/TUBAL CANCR RESEC W/SALPINGO-OOPHEREC 01/14/2014 REMOV GLO ROBI DEQUAN ACC DEV,WITH 02/18/2014 Removal of A port left chest 02/18/14 Dr. Carbajal in the clinic REMOVAL OF OVARY/OVIDUCT(S) 2013 preventive for breast cancer , uterus and cervix intact REPLACE TISSUE POLE SHAVER HELPER 07/02/2013 REPLACEMENT EXPANDERS WITH PERMANENT PROSTHESIS performed by Delio Chan MD at [facility] SKIN TISSUE REARRANGEMENT 07/02/2013 SKIN TISSUE REARRANGEMENT performed by Delio Chan MD at [facility] SKIN TISSUE REARRANGEMENT, ADD-ON 07/02/2013 SKIN TISSUE REARRANGEMENT, ADD-ON performed by Delio Chan MD at [facility] TOTAL ABD HYSTERECTOMY W/WO REMOVAL OF TUBE(S) 01/14/2014 lap BSO , uterus intact Family History Problem Relation Age of Onset Alzheimer's disease Mother 63 both AD and vascular Hypertension Mother Cancer Sister 23 SCC Cancer Grandmother (Maternal) skin ca Colon cancer Aunt (Unspecified) 65 dad side Social History Socioeconomic History Marital status: Number of children: 2 Occupational History 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 Comment: [employer] 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 Employer: [employer] Tobacco Use Smoking status: Never Smokeless tobacco: [...] negative except mentioned in HPI OBJECTIVE: BP 112/62 | Pulse 77 | Temp 36.8 C (98.3 F) | Ht 1.708 m (5' 7.25") | Wt 78.1 kg (172 lb 1.6 oz) | LMP 01/06/2013 | SpO2 99% | BMI 26.75 kg/m | BSA 1.92 m PHYSICAL EXAM: General: alert, healthy, and no distress Head: Normocephalic, No masses, lesions, tenderness or abnormalities Nose: no mucosal erythema, no mucosal edema, no purulent discharge Oropharynx: no exudate, no erythema, lips, buccal [...] lungs clear to auscultation Abdomen: abdomen soft, non-tender, normal bowel sounds, and no masses or organomegaly Extremities: less than 2 second capillary refill, no joint deformities, effusion, or inflammation ASSESSMENT AND PLAN S/p small bowel obstruction (Primary) - DISCH MED RECON CUR MED LIS Continue with low fiber diet, fluids Suggest to resume MiraLax and Colace and senna once a day and titrate upward titrate down dependingon need Hospital discharge follow-up - DISCH MED RECON CUR MED LIS Intermittent small bowel obstruction due to adhesions (HCC) - DISCH MED RECON CUR MED LIS Malignant neoplasm of overlapping sites of both breasts in female, estrogen receptor positive Stage 3a chronic kidney disease (HCC) Sarcoidosis Post-mastectomy lymphedema syndrome H/O small bowel obstruction Adjustment insomnia Liver lesion Hyperlipidemia with target LDL less than 130 Microscopic hematuria Family hx of melanoma Treatment and plan was discussed with patient and was given opportunity to ask questions which wereanswered appropriately. Patient verbalizing understanding. This note was prepared with the help of fluency and if there is any mis-spelled words , sentences or something which doesn't represent the content of the subject that could be technical error and please refer to the author for clarification. Susie Ochoa MD 9:07 AM 08/19/2023 documented in this encounter Nursing Notes * Danni Webber LPN - 08/19/2023 8:55 AM EST Chief Complaint Patient presents with Hospital Follow-Up [facility] discharge 08/16/2023 follow up. Small bowel obstruction, patient states doing better. documented in this encounter Miscellaneous Notes * Addendum Note - Susie Ochoa MD - 08/19/2023 4:11 PM ESTAddended by: SUSIE OCHOA on: 08/19/2023 04:11 PM Modules accepted: Level of Service documented in this encounter Plan of Treatment Upcoming Encounters Date Type Department Care Team (Latest Contact Info) Description 08/31/2023 9:45 AM EST Pharmacy Pharmacy Hematology Oncology [place] [address] [place] [address] [facility] Hem/[place] [facility] [place] [address] 09/28/2023 11:30 AM EST Hospital Encounter [facility]O [facility], Endoscopy Room [facility] [address] [place] [phone] Radha Henderson, DO [address] [place] [address] 09/28/2023 11:30 AM EST - 09/28/2023 12:00 PM EST Surgery ENDO [facility], Endoscopy Room [facility] [address] [place] [phone] Radha Henderson, DO [address] [place] [address] ESOPHAGOGASTRODUODENOSCOPY (EGD), FLEXIBLE, TRANSORAL, DIAGNOSTIC 10/11/2023 7:45 AM EST Office Visit Hematology/Oncol ogy [facility] [address] [place], [place] [address] Cory Infante MD [address] [place] [address] 11/17/2023 11:40 AM EDT Office Visit General Internal Medicine [facility] [place] [place] [address] Susie Ochoa MD [address] [facility] [address] [place] [address] 07/24/2024 11:00 AM EST Office Visit Dermatology[address] [place] [address] Donita Cornejo PA-C [address] [place] [address] [place] [address] Scheduled Procedures Name Priority Associated Diagnoses Date/Ti [...] HIV Screening 1987 Hepatitis C Screening 1990 Albumin/Creatinine Ratio 10/29/2023 10/28/2022, 03/0 02/2022 Depression Screening 10/29/2023 10/28/2022 DTaP,Tdap,and Td Vaccines (2 - Td or Tdap) 11/03/2023 11/02/2013 CKD PHOS USE SMARTSET 23565 12/02/2023 04/2 01/2023, 10/12/2021, 02/07/2020 GFR 01/17/2024 07/18/2023, 04/09, 02/04/2023, Additional history exists CKD HGB USE SMARTSET 61357 07/18/202407/18, 07/18/2023, 04/27/2023, Additional history exists Diabetes [...] Discontinued 05/09/2023, 05/09/2023 Colorectal Cancer Screening Discontinued COVID-19 Vaccine Completed 06/12/2023, , 02/02/2022, Additional history exists Influenza Vaccine (FLU shot) Completed 06/12/2023, 06/12/2023, 06/17/2022, Additional history exists Cologuard Discontinued Fecal Occult Blood Test Discontinued GARDASIL-HPV IMMUNIZATION SERIES Aged Out No longer eligible based on patient's age to complete this topic MENINGOCOCCAL (MENACTRA/MENVEO) Aged Out No longer eligible based on patient's age to complete this topic Sigmoidoscopy Discontinued documented as of this encounter Medical Devices Implanted Type Area Manager Lab Device Identifier Shelf Expiration Date Model / Serial / Lot Implant Hi Prof Gel 750cc - [id number] Implanted:Qty: 1 on 07/02/2013 at OR [facility] Left: Breast MENTOR DARVIN 04/01/2014 [id number] / [id number] / [id number] documented as of this encounter Visit Diagnoses Diagnosis S/p small bowel obstruction- Primary Personal history of other diseases of digestive system Hospital discharge follow-up Other follow-up examination Intermittent small bowel obstruction due to adhesions (HCC) Malignant neoplasm of overlapping sites of both breasts in female, estrogen receptor positive Stage 3a chronic kidney disease (HCC) Sarcoidosis 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 H/O small bowel obstruction Personal history of other diseases of digestive system Adjustment insomnia Transient disorder of initiating or maintaining sleep Liver lesion Other specified disorders of liver Hyperlipidemia with target LDL less than 130 Other and unspecified hyperlipidemia Microscopic hematuria Family hx of melanoma Family history of other specified malignant neoplasm History of gastric ulcer Personal history of [...] Directives occurred with: Not Discussed Care Teams Scissors Sharpener Relationship Specialty Start Date End Date Susie Ochoa MD [address] [facility] [address] PCP - General Internal Medicine 03/02/12 documented as of this encounter
--- OUTSIDE RECORDS SUMMARY | 2023-08-30 07:27 | External Medical Summary | Summary of Care ---
Author Name Unknown Organization [facility] Address [address] [facility] [place] [address] Phone [phone] Care Team Providers Care Indoor Landscape Architect Name Role Phone Susie White MD Primary Care Provider [phone] Reason for Visit * Reason Onset Date Comments Hospital Follow-Up 08/17/2023 JOYCE Encounter Details Date Type Department Care Team (Late st Contact Info) Description 08/17/2023 Telephone Ancillary [facility] [place] [address] [place] [address] Aide Jones, BEN Hospital Follow-Up (JOYCE) Allergies No known active allergiesdocumented as of this encounter (statuses as of 08/17/2023) Medications Medication Sig Dispensed Refills Start Date [...] as of this encounter (statuses as of 08/17/2023) Active Problems Problem Noted Date Diagnosed Date [...] as of this encounter (statuses as of 08/17/2023) Resolved Problems Problem Noted Date Diagnosed Date [...] Infante MD PI CRC Name: Molly Chowdhury [facility] Contact PI or LIFE CONSULTANT regarding any serious medical event, if new [...] Infante MD PI CRC Name: Molly Chowdhury [facility] Contact PI or LIFE CONSULTANT regarding any serious medical event, if new Rx given, ER visit, hospitalization, or billing question Diagnosis changed due to Research Module. Go to Snapshot for study details. 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 10/13/2019 documented as of this encounter (statuses as of 08/17/2023) Immunizations Name Administration Dates Next Due COVID-19 [...] encounter Miscellaneous Notes * Telephone Encounter - Aide Jones RN - 08/17/2023 1:40 PM EST Images from the original note were not included. Transitions of Care Note Reason for Referral:Recent Admission Phone visit for follow up: JOYCE Admitted to: [facility], Date: 08/13/2023 Discharged to: Home Self Care, Date: 08/16/2023 Diagnosis driving hospitalization: SBO Source/Contact: Patient SUBJECTIVE Consent: Verbal consent for review of hospital discharge: Yes REVIEW OF SYSTEMS Patient/Other Reports: Current patient/caregiver problems or concerns: Pt feels "good" CV: Denies problems Pulmonary: Denies problems Chills/Sweats/Fever:Denies chills/sweats Denies fever Appetite:appetite is "OK" Current diet: Low fiber Bowel: No BM yet but passing dimitrios Bladder: denies problems Wound (If applicable): N/A Pain:Denies Sleep:Denies problems FUNCTIONAL STATUS: ADL'S: Needs Assistance With:N/A as pt is independent IADL'S: Needs Assistance With:N/A as pt is independent Cognitive and Mental Health: denies problems, alert and oriented x 3, and able to communicate, understand instructions, process information. MEDICATION RECONCILIATION Medications: Discharge med list reviewed with patient or caregiver Reports all medications taken as prescribed. Denies side effects ASSESSMENT Medication Risk Assessment: No risks identified Did patient fail outpatient treatment? No Discharge instructions available for review? Yes PLAN Symptom Monitoring Interventions:Member/caregiver education - signs and symptoms to contact PrimaryCare (DO NOT DELETE-Three jaime symptoms patient is to report to PCP) 1. Increasing abdominal pain 2. Fever greater than 101 3. Nausea or vomiting Gis CoordinatorState Pilot of Care interventions/Action Plan: 5 - 7 day follow-up with PCP in place - Date: Dr White 08/19/23 at 9 am Educated on role of JOYCE completed with patient/caregiver. Educated patient/caregiver on patient right to have input on JOYCE plan of care. Verification of Home Health/DME if indicated: NO N/A Identified Care Gaps: No Care Gaps closed this call: Appointment made or confirmed and Transition of Care follow-up communication Re-evaluation of Plan of Care and progress towards goals achievement: Patient education this visit: Verbal, Encouraged small frequent low fiber meals and hydration. Plan to discharge needs met, verbalizes understanding and agrees with plan. Aide Rand, RN documented in this encounter Plan of Treatment Upcoming Encounters Date Type Department Care Team (Latest Contact Info) Description 08/19/2023 9:00 AM EST Office Visit General Internal Medicine [facility] [place] [address] [place], [place] [address] Susie White MD [address] [place], [place] [address] 08/31/2023 9:45 AM EST Pharmacy Pharmacy Hematology Oncology [facility] [address] [place] [address] c, [facility] Hem/Onc [address] [place] [address] 09/28/2023 11:30 AM EST Hospital Encounter [facility], Endoscopy Room [facility] [address] [place] [phone] Radha Henderson, DO [address] [place] [address] 09/28/2023 11:30 AM EST - 09/28/2023 12:00 PM EST Surgery [facility], Endoscopy Room [facility] [address] [place] [phone] Radha Henderson, DO [address] [place], [place] [address] ESOPHAGOGASTRODUODENOSCOPY (EGD), FLEXIBLE, TRANSORAL, DIAGNOSTIC 10/11/2023 7:45 AM EST Office Visit Hematology/Oncol ogy [facility] [place] [address] [place], [place] [address] Cory Infante MD [address] [place] [address] 11/17/2023 11:40 AM EDT Office Visit General Internal Medicine [facility] [place] [address] [place] [address] Susie White MD [address] [place] [address] 07/24/2024 11:00 AM EST Office Visit [place] [address] [place], [place] [id number] Donita Cornejo PA-C [address] [place] [address] [place] [address] Scheduled Procedures Name Priority Associated Diagnoses Date/Ti [...] Tdap) 11/03/2023 11/02/2013 CKD PHOS USE SMARTSET 55771 12/02/2023 04/01/2023, 10/12/2021, 02/07/2020 GFR 01/17/2024 07/18/2023, 04/09, 02/04/2023, Additional history exists CKD HGB USE SMARTSET 30073 07/18/202407/18, 07/18/2023, 04/27/2023, Additional history exists Diabetes [...] this encounter Medical Devices Implanted Type Area Yard Inspector Device Identifier Shelf Expiration Date Model / Serial / Lot Implant Hi Prof Gel 750cc - [id number] Implanted:Qty: 1 on 07/02/2013 at [place] [facility] Left: Breast MENTOR DARVIN 04/01/2014 [id number] / [id number] / [id number] documented as of this encounter Advance Directives [...] Directives occurred with: Not Discussed Care Teams Indoor Landscape Architect Relationship Specialty Start Date End Date Susie White MD [address] [facility] [place] [address] PCP - General Internal Medicine 03/02/12 documented as of this encounter
--- OUTSIDE RECORDS SUMMARY | 2023-08-30 07:27 | External Medical Summary | Summary of Care ---
Author Name Unknown Organization [facility] Address [address] [facility] [address] Phone [phone] Care Team Providers Care Certified Adapted Physical Educator Name Role Phone Susie Ochoa MD Primary Care Provider [phone] Reason for Visit * Reason Onset Date Comments Hospital Follow-Up [facility] discharg e 08/16/2023 follow up. Small bowel obstruction, patient states doing better. Hospital Follow-Up 08/19/2023 Encounter Details Date Type Department Care Team (Late st Contact Info) Description 08/19/2023 9:00 AM EST Office Visit General Internal Medicine [address] [place] [address] [place] [address] Susie Ochoa MD [address] [place] [address] S/p small bowel obstruction*; Hospital discharge follow-up; [...] CRC Name: Molly LIND Contact PI or MEDICAL SCIENCE LIAISON regarding any serious medical event, if new [...] [facility] Contact PI or MEDICAL SCIENCE LIAISON regarding any serious medical event, if new [...] Chief Complaint Patient presents with Hospital Follow-Up [facility] discharge 08/16/2023 follow up. Small bowel obstruction, [...] as of yet -she has appointment with [facility] regarding her recurrence of breast cancer end [...] performed by Delio Chan MD at OR [facility] BREAST RECONSTRUCTION 04/21/2012 I 04/21/2012 mmediate reconstruction of bilateral breasts with adjustable implant to be utilized for expansion and acellular dermal matrix 04/21/12 Dr. Chan at [facility] BRONCHOSCOPY, DIAGNOSTIC N/A 01/28/2016 BRONCHOSCOPY DIAGNOSTIC WITH OR WITHOUT WASHING performed by Bill Farmer MD at ENDOSCOPY [facility] COLONOSCOPY, DIAGNOSTIC (RECTUM) 05/09/2023 biopsies show benign polyp/recall 5 years/COLONOSCOPY FLEXIBLE PROXIMAL DIAGNOSTIC performed by Raheem Hagen MD at ENDOSCOPY [facility] DILATION AND CURETTAGE (D&C) 06/2008 D&C at [place], [place] EGD, FLEXIBLE, DIAGNOSTIC 11/23/2018 gastritis/ESOPHAGOGASTRODUODENOSCOPY (EGD), FLEXIBLE, TRANSORAL, DIAGNOSTIC performed by Lavelle Ruiz MD at ENDOSCOPY [facility] EGD, FLEXIBLE, DIAGNOSTIC 06/07/2023 ESOPHAGOGASTRODUODENOSCOPY (EGD), FLEXIBLE, TRANSORAL, DIAGNOSTIC performed by Kelsey Goldstein DO at ENDOSCOPY [facility] EGD, FLEXIBLE,W/ENDOSCOPIC US 10/03/2019 lymph node, peripancreatic bx - metastatic cancer, IPMN / INPT [facility] ERCP 10/03/2019 choledocholithiasis / INPT [facility] EXPLORATION OF ABDOMEN 01/14/2014 EXPLORATORY LAPAROTOMY performed by Danae Ceron MD at OR [facility] LAPAROSCOPY; CHOLECYSTECTOMY 09/2019 LAPAROSCOPY;RMV ADNEXAL STRUCT 01/14/2014 LAPAROSCOPIC OOPHORECTOMY AND OR SALPINGECTOMY performed by Danae Ceron MD at [facility] MASTECTOMY, MODIFIED RADICAL 04/21/2012 04/21/2012 Right mastectomy with right axillary lymph node dissectiona nd left prophylactic mastectomy 04/21/12 Dr. Carbajal at [facility] MASTECTOMY,RADICAL 2011 OTHER (INFORMATION) 11/1986 Left ankle surgery, [place], [place] OVARY/TUBAL CANCR RESEC W/SALPINGO-OOPHEREC 01/14/2014 REMOV GLO ROBI DEQUAN ACC DEV,WITH 02/18/2014 Removal of A port left chest 02/18/14 Dr. Carbajal in the clinic REMOVAL OF OVARY/OVIDUCT(S) 2013 preventive for breast cancer , uterus and cervix intact REPLACE TISSUE RACKET STRINGER 07/02/2013 REPLACEMENT EXPANDERS WITH PERMANENT PROSTHESIS performed by Delio Chan MD at [facility] SKIN TISSUE REARRANGEMENT 07/02/2013 SKIN TISSUE REARRANGEMENT performed by Delio Chan MD at [facility] SKIN TISSUE REARRANGEMENT, ADD-ON 07/02/2013 SKIN TISSUE REARRANGEMENT, ADD-ON performed by Delio Chan MD at [facility] TOTAL ABD HYSTERECTOMY W/WO REMOVAL OF TUBE(S) 01/14/2014 lap BSO , uterus intact Family History Problem Relation Age of Onset Alzheimer's disease Mother 63 both AD and vascular Hypertension Mother Cancer Sister 23 SCC Cancer Grandmother (Maternal) skin ca Colon cancer Aunt (Unspecified) 65 dad side Social History Socioeconomic History Marital status: Number of children: 2 Occupational History 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 Small bowel obstruction, [...] 9:45 AM EST Pharmacy Pharmacy Hematology Oncology [address] [place] [place] [address] [facility], [facility] Clinic Hem/Onc [facility] [place] [address] 09/28/2023 11:30 AM EST Hospital Encounter ENDO [facility], Endoscopy Room [facility] [address] [place] [id number] Radha Henderson, DO [address] [place] [address] 09/28/2023 11:30 AM EST - 09/28/2023 12:00 PM EST Surgery ENDO [facility], Endoscopy Room [facility] [address] [place] [phone] Radha Henderson, DO [address] [place] [address] ESOPHAGOGASTRODUODENOSCOPY (EGD), FLEXIBLE, TRANSORAL, DIAGNOSTIC 10/11/2023 7:45 AM EST Office Visit Hematology/Oncol ogy [facility] [address] [place] [address] Cory Infante MD [address] [place] [address] 11/17/2023 11:40 AM EDT Office Visit General Internal Medicine [facility] [place] [address] [place] [address] Susie Ochoa MD [address] [place] [address] 07/24/2024 11:00 AM EST Office Visit Dermatology[address] [place] [address] Donita Cornejo PA-C [address] [place] [address] [place] [address] Scheduled Procedures Name Priority Associated Diagnoses Date/Ti [...] Tdap) 11/03/2023 11/02/2013 CKD PHOS USE SMARTSET 18685 12/02/2023 04/2 01/2023, 10/12/2021, 02/07/2020 GFR 01/17/2024 07/18/2023, 04/09, 02/04/2023, Additional history exists CKD HGB USE SMARTSET 09629 07/18/202407/18, 07/18/2023, 04/27/2023, Additional history exists Diabetes [...] this encounter Medical Devices Implanted Type Area Bone Char Kiln Tender Device Identifier Shelf Expiration Date Model / Serial / Lot Implant Hi Prof Gel 750cc - [id number] Implanted:Qty: 1 on 07/02/2013 at OR [facility] Left: Breast MENTOR DARVIN 04/01/2014 [id number] / [id number] / [id number] documented as of this encounter Visit Diagnoses [...] Directives occurred with: Not Discussed Care Teams Certified Adapted Physical Educator Relationship Specialty Start Date End Date Susie Ochoa MD [address] [place] [address] PCP - General Internal Medicine 03/02/12 documented as of this encounter
[2023-08-30 08:06] LABS: BUN Creatinine Ratio 9.8 (10-20); Calcium 8.4 mg/dl (8.6-10.3); Creatinine Clr Calc Pharmacy 62.4 ml/min; Est GFR (African American) 66.3 ml/min; Est GFR (Non-African American) 57.2 ml/min; Magnesium 1.8 mg/dl (1.7-2.4); Potassium 3.6 mmol/L (3.5-5.1)
[2023-08-30] MEDS: ENOXAPARIN INJ 40 MG/0.4 ML SYR SQ SCH (08:19)
[2023-08-30] MEDS: LETROZOLE 2.5 MG TAB PO SCH (08:19)
[2023-08-30] MEDS: PANTOprazole 40 MG TAB PO SCH ×2 (08:19→20:27)
[2023-08-30 08:42] LABS: Basophils # (auto) 0.02 K/uL (0.00-0.20); Basophils % (auto) 0.8 %; Eosinophils # (auto) 0.05 K/uL (0.00-0.50); Hematocrit (blood only) 33.3 % (37.0-47.0); Hemoglobin 11.4 g/dl (12.0-16.0); Immature Granulocytes # (auto) 0.01 K/uL (0.01-0.20); Immature Granulocytes % (auto) 0.4 %; Lymphocytes # (auto) 1.04 K/uL (1.20-3.40); Lymphocytes % (auto) 40.9 %; Mean Corpuscular Hemoglobin 31.4 pg (25.0-34.0); Mean Corpuscular Hgb Conc 34.2 g/dL (32.0-36.0); Mean Corpuscular Volume 91.7 fL (80.0-100.0); Monocytes # (auto) 0.16 K/uL (0.11-0.59); Monocytes % (auto) 6.3 %; Neutrophils # (auto) 1.26 K/uL (1.40-6.50); Neutrophils % (auto) 49.6 %; Platelet Count 196 K/uL (130-400); RBC Morphology Unremarkable; RDW Coefficient of Variation 12.4 % (11.5-14.5); RDW Standard Deviation 41.5 fL (36.4-46.3); Red Blood Count 3.63 M/uL (4.20-5.40); White Blood Count 2.54 K/ul (4.8-10.8)
--- NOTE | 2023-08-30 08:57 | Surgery Progress Note ---
Date of Service August 30, 2023 Assessment & Plan (1) SBO (small bowel obstruction): Plan: Pt admitted with SBO pt reports she is feeling well today Denies N/V , fever chills, sob, cp Had some mild nausea this AM passed one small flatus Abdomen soft non-tender, non distended Encouraged ambulation and to let nurses know if she passes more flatus May start clear liquids later today if showing signs of improvement in bowel function as above. feeling much better however she is quite frustrated with the recurrent nature of her SBO. will check KUB today. if better will start clears. I did offer to proceed with dx laparoscopy to evaluate and hopefully correct the source of her SBO. potentially could do this vs home tomorrow and schedule electively depending on how she does. will re-discuss tomorrow. Admission and Anticipated Discharge Date Admission Date: August 30, 2023 Subjective pt reports she is feeling well Denies N/V , fever chills, sob, cp Had some mild nausea this AM passed one small flatus Review of Systems Constitutional: no fever and no chills Ear, Nose, Mouth, Throat: no hearing loss Respiratory: no cough and no dyspnea Cardiovascular: no chest pain Gastrointestinal: + nausea (earlier this AM); no abdominal pain and no vomiting Genitourinary: no dysuria Musculoskeletal: no back pain Integumentary: no rash Neurologic: no localized weakness Physical Exam Physical Exam: alert oriented pleasant Constitutional: cooperative and comfortable; no acute distress ENMT: external ear and nose normal, oropharynx normal Neck: trachea midline, no thyromegaly Respiratory: normal respiratory effort and able to speak in complete sentences; no respiratory distress Cardiovascular: Rate/Rhythm: regular rate Gastrointestinal (Abdomen): Inspection/Auscultation: abdomen not distended Percussion/Palpation: abdomen soft; abdomen nontender, no guarding and abdomen not rigid Musculoskeletal: no cyanosis or clubbing, extremities motor strength 5/5 Skin: no rashes, warm and dry Results & Data Vital Signs (Past 12 Hours) Vital Signs Temp Pulse Pulse Pulse Resp BP BP 08/30/23 07:27 97.7 F 60 16 105/59 L 08/30/23 05:41 98.1 F 60 18 117/72 08/30/23 04:00 18 126/77 01/23/24 02:40 72 18 136/86 08/29/23 23:59 98.1 F 84 20 140/84 Pulse Ox O2 Del Method 08/30/23 07:27 95 Room Air 08/30/23 05:41 97 Room Air 08/30/23 04:00 96 Room Air 08/30/23 02:40 99 Room Air 08/29/23 23:59 99 Room Air PG Care Time/CCT Total # of Minutes Spent Total Time Spent with Patient: Total time spent is greater than 50% in coordination of care (as documented) at patient's floor/unit and/or counseling patient: Coding Level of Care Code 90531 SUB INP/OBS CARE 09/01MIN Diagnoses SBO (small bowel obstruction) K56.609
--- NOTE | 2023-08-30 13:54 | XRay Report ---
KUB CLINICAL HISTORY: Small bowel obstruction. COMPARISON STUDY: KUB and CT of the abdomen and pelvis August 30, 2023. FINDINGS: There are cholecystectomy clips. No evidence for free air on supine exam. A few loops of mi ldly dilated small bowel are present. Small bowel dilatation has improved. There is no radiographic e vidence for pneumatosis or portal venous gas. IMPRESSION: Mild small bowel dilatation, improved since prior exam. The findings favor an improving small bowel obstruction. ACT 112: Negative or not required by law. Electronically signed by: Neil Lemus M.D. 08/30/2023 1:53 PM
--- NOTE | 2023-08-30 15:33 | Hospitalist Progress Note ---
Date of Service August 30, 2023 Assessment & Plan (1) SBO (small bowel obstruction): Plan: 52 yr old Female with PMH of hyperlipidemia, left multifocal metastatic breast Cancer stage IIIc s/p bilateral mastectomy with reconstruction and on chemo, CKD stage III and sarcoidosis presents with abdominal pain and found to have recurrent small bowel obstruction. She is being managed for the following: Small bowel obstruction Recurrent clears, advance diet per surgery IV fluids IV Dilaudid as needed IV antiemetics as needed Surgery consulted - appreciate their assistance - consider laparoscopy vs home and scheduled as OP Monitor in medical floor History of metastatic breast cancer stage IIIc s/p bilateral mastectomies On letrozole and Kisqali. Patient had a EGD which showed gastric ulcers and pathology was consistent with breast primary Heme-onc to continue current medications and follow-up EGD in August 2023 Patient is going to have second opinion with [facility] as per heme-onc notes seems at the end of this month TYRON on CKD stage III Presented with creatinine 1.3 Baseline creatinine around 1 Avoid nephrotoxic agents resolving will continue IVF until tolerating more substantial diet Sarcoidosis Seems currently not under treatment DVT prophylaxis Lovenox Disposition Med/surg Full code Pt was seen and examined in collaboration with Dr. Castellon, please see addendum This note does note reflect a billable service as pt was admitted after 00:00 on 08/30/23. Admission and Anticipated Discharge Date Admission Date: August 30, 2023 Supervising Physician Co-Signing Physician Notes Attending addendum The patient was seen and examined in medical floor She has been feeling much better Has been passing gas and abdomen is not distended Denies any abdominal pain nausea or vomit On examination Remains hemodynamically stable Afebrile with unremarkable examination Her labs and imaging studies reviewed. Medication reviewed as well by me Has SBO-likely secondary ideations Has been started on clears Agree with assessment and plan as outlined above by Bre Castellon Subjective Patient was seen and examined in 355. Follow-up SBO. She states she was eating chicken soup last evening when she developed sharp, stabbing abdominal pain with associated nausea and vomiting. She immediately presented to ED due to prior history of SBO. Currently she is improved feeling much improved and her abdominal pain has resolved. She denies any nausea or vomiting. She states general surgery was already around and is going to increase her to clears for lunch. She denies fever, chills, sweats, lightheadedness, dizziness, chest pain or shortness of breath. Review of Systems Review of Systems: All systems reviewed & are unremarkable except as noted in HPI & below Physical Exam Physical Exam: Gen: WD/WN, NAD, A&O x3 HEENT: Normocephalic, atraumatic, conjunctivae moist, sclerae anicteric, mucous membranes moist. Lung: Clear to Auscultation bilaterally, no wheezes/rales/rhonchi Heart: Regular rate, regular rhythm, no murmurs, rubs, or gallops Abdomen: Soft, NT, ND +BS x 4 Extremities: No edema Skin: Warm, no rash, negative turgor. Results & Data Results & Data Vital Signs (Past 12 Hours) Vital Signs Temp Pulse Resp BP Pulse Ox O2 Del Method 08/30/23 14:22 36.7 C 55 L 16 116/73 98 Room Air 08/30/23 07:27 36.5 C 60 16 105/59 L 95 Room Air 08/30/23 05:41 36.7 C 60 18 117/72 97 Room Air 08/30/23 04:00 18 126/77 96 Room Air Laboratory Results Short CBC 08/30/23 08/30/23 Range/Units 00:28 07:16 WBC 4.49 L 2.54 L (4.8-10.8) K/ul Hgb 15.4 11.4 L D (12.0-16.0) g/dl Hct 44.8 33.3 L (37.0-47.0) % Plt Count 263 196 (130-400) K/uL BMP 08/30/23 08/30/23 00:28 07:16 Sodium 140 138 Potassium 3.5 3.6 Chloride 102 107 Carbon Dioxide 26 28 BUN 13 11 Creatinine 1.31 H 1.12 Glucose 109 H 195 H Calcium 10.1 8.4 L Liver Function 08/30/23 Range/Units 00:28 Total Bilirubin 0.4 (0.2-1.0) mg/dl AST 18 (13-39) U/L ALT 11 (7-52) U/L Alkaline Phosphatase 50 (34-104) U/L Albumin 4.8 (3.4-5.0) gm/dl Urine 08/30/23 Range/Units 04:27 Urine Color Yellow Urine Appearance Clear (Clear) Urine pH 6.0 (4.5-7.5) Ur Specific [place] 1.023 (1.000-1.030) Urine Protein Trace H (Negative) Urine Glucose (UA) Negative (Negative) Medications Administered Current Inpatient Medications Acetaminophen (Acetaminophen 325 Mg Tab) 650 mg PO Q4H PRN PRN Reason: pain/fever Stop: 09/29/23 05:35 Last Admin: 08/30/23 13:13 Dose: 650 mg Enoxaparin Sodium (Enoxaparin Inj 40 Mg/0.4 Ml Syr) 40 mg SQ Q24H DINORA Stop: 09/29/23 05:59 Last Admin: 08/30/23 08:19 Dose: 40 mg Hydromorphone HCl (Hydromorphone Inj 0.5 Mg/0.5 Ml Syr) 0.5 mg IV Q3H PRN PRN Reason: Pain Stop: 09/13/23 05:35 Dextrose/Sodium Chloride (D5w And 1/2nss) 1,000 mls @ 125 mls/hr IV .Q8H DINORA Stop: 09/29/23 05:35 Last Admin: 08/30/23 13:13 Dose: 125 mls/hr Letrozole (Letrozole 2.5 Mg Tab) 2.5 mg PO DAILY DINORA Stop: 09/29/23 08:59 Last Admin: 08/30/23 08:19 Dose: 2.5 mg Miscellaneous (Order Awaiting Action: Ribociclib [Kisqali] 400 Mg/Day (200 Mg X 2) Tablet) 1 each N/A QS DINORA Stop: 09/29/23 07:59 Last Admin: 08/30/23 08:22 Dose: Not Given Ondansetron HCl (Ondansetron Inj 2 Mg/Ml 2 Ml Vial) 4 mg IV Q6H PRN PRN Reason: Nausea Stop: 09/29/23 05:35 Last Admin: 08/30/23 05:58 Dose: 4 mg Pantoprazole Sodium (Pantoprazole 40 Mg Tab) 40 mg PO BID DINORA Stop: 09/29/23 08:59 Last Admin: 08/30/23 08:19 Dose: 40 mg Trazodone HCl (Trazodone Hcl 50 Mg Tab) 50 mg PO HS DINORA Stop: 09/29/23 20:59
[2023-08-30] MEDS: traZODone HCL 50 MG TAB PO SCH (20:27)
[2023-08-31] MEDS: D5W AND 1/2NSS 1,000 ML IV SCH (04:11)
[2023-08-31] MEDS: ENOXAPARIN INJ 40 MG/0.4 ML SYR SQ SCH (05:42)
[2023-08-31 07:37] LABS: Calcium 8.7 mg/dl (8.6-10.3); Magnesium 1.9 mg/dl (1.7-2.4); Potassium 3.6 mmol/L (3.5-5.1)
--- NOTE | 2023-08-31 07:39 | Surgery Progress Note ---
Date of Service August 31, 2023 Assessment & Plan (1) SBO (small bowel obstruction): Plan: Patient admitted with SBO, + metastatic breast ca KUB obtained yesterday revealed improving SBO She has been advanced to clears and continues to pass flatus and deny pain/n/v Abdomen is soft and non tender Will advance to full liquids for now and see how she fairs She has contemplated her options regarding surgery this admission as she is frustrated with recurring SBOs and wishes to proceed We will book her for the OR tomorrow for diagnostic laparoscopy and release of SBO with Dr. Teresa. NPO at midnight as above. feeling better. frustrated with the recurrent nature of the SBO though. discussed options/risks ( bleeding/infection/blood clots/injury to another organ such as bowel/bladder/ureter etc..). questions answered. will plan for diagnostic laparoscopy with release of pSBO tomorrow. consent signed. Admission and Anticipated Discharge Date Admission Date: August 30, 2023 Subjective Patient reports no issues overnight. She is passing flatus, awaiting a BM. Denies pain/n/v. Thought more about possible surgery and wishes to proceed with diagnostic laparoscopy this admission if possible. Physical Exam Physical Exam: awake/alert, no distress Gastrointestinal (Abdomen): Inspection/Auscultation: abdomen not distended Percussion/Palpation: abdomen soft; abdomen nontender Results & Data Vital Signs (Past 12 Hours) Vital Signs Temp Pulse Resp BP Pulse Ox O2 Del Method 08/31/23 07:16 36.3 C L 67 16 111/74 100 Room Air 08/30/23 20:17 36.6 C 52 L 18 117/77 100 Room Air PG Care Time/CCT Total # of Minutes Spent Total Time Spent with Patient: Total time spent is greater than 50% in coordination of care (as documented) at patient's floor/unit and/or counseling patient: Coding Level of Care Code 84281 SUB INP/OBS CARE 2/35MIN Diagnoses SBO (small bowel obstruction) K56.609
[2023-08-31 07:42] LABS: BUN Creatinine Ratio 5.1 (10-20); Creatinine Clr Calc Pharmacy 71.4 ml/min; Est GFR (Non-African American) 67.3 ml/min; Phosphorus 3.7 mg/dl (2.5-4.9)
[2023-08-31] MEDS: PANTOprazole 40 MG TAB PO SCH ×2 (09:11→20:39)
[2023-08-31] MEDS: LETROZOLE 2.5 MG TAB PO SCH (09:11)
--- NOTE | 2023-08-31 10:33 | XRay Report ---
KUB HISTORY: Acute generalized abdominal pain was reported obstruction sbo COMPARISON: 08/30/2023 FINDINGS: Cholecystectomy. Moderate colonic fecal retention. There is resolution of the previously no bulmaro small bowel distention. Renal shadows are obscured by bowel gas. No renal calculi. No ureteral c alculi. No pneumoperitoneum or pneumatosis. No fracture. IMPRESSION: Resolution of the previously noted small bowel distention suggestive of a resolved versus resolving s mall bowel obstruction. ACT 112: Negative or not required by law. The above report was generated using voice recognition software. It may contain grammatical, syntax o r spelling errors. Electronically signed by: Anoop Dominguez M.D. 08/31/2023 10:32 AM
--- NOTE | 2023-08-31 15:22 | Hospitalist Progress Note ---
Date of Service August 31, 2023 Assessment & Plan (1) SBO (small bowel obstruction): Plan: 52 yr old Female with PMH of hyperlipidemia, left multifocal metastatic breast Cancer stage IIIc s/p bilateral mastectomy with reconstruction and on chemo, CKD stage III and sarcoidosis presents with abdominal pain and found to have recurrent small bowel obstruction. She is being managed for the following: Small bowel obstruction Recurrent Abdominal pain, nausea vomiting resolved Diet advanced to full liquid N.p.o. after midnight Will hold IV fluids until midnight and resume when n.p.o. status resume To undergo laparoscopy tomorrow IV Dilaudid as needed IV antiemetics as needed Appreciate general surgery recommendations and assistance History of metastatic breast cancer stage IIIc s/p bilateral mastectomies On letrozole and Kisqali. Patient had a EGD which showed gastric ulcers and pathology was consistent with breast primary Heme-onc to continue current medications and follow-up EGD in August 2023 Patient is going to have second opinion with [facility] as per heme-onc notes seems at the end of this month TYRON on CKD stage III Presented with creatinine 1.3 Baseline creatinine around 1 Avoid nephrotoxic agents resolving Sarcoidosis Seems currently not under treatment DVT prophylaxis: Encourage ambulation, place SQ Lovenox on hold for upcoming procedure, will defer to general surgery when okay to resume Disposition Med/surg Full code Pt was seen and examined in collaboration with Dr. Sosa, please see addendum A total of 44 minutes was spent coordinating, documenting, and providing care for this patient excluding time spent in the performance of separately billed services. This included personally viewing all current laboratories and imaging studies, medication reconciliation, outpatient chart review, and discussion with specialists. Admission and Anticipated Discharge Date Admission Date: August 30, 2023 Supervising Physician Co-Signing Physician Notes Patient is seen and examined at bedside. + Flatus, no bowel movement today. Tolerating current diet. Chest x-ray showed near resolution of small bowel obstruction. On exam patient is moderately built and nourished, no apparent distress, normocephalic atraumatic, EOMI, normal breath sounds, clear to auscultation, S1-S2, no murmur, no pedal edema, abdomen soft, nontender,+ bowel sounds, alert, awake, oriented, grossly no focal deficits. Patient is currently being managed for recurrent small bowel obstruction. N.p.o. after midnight for diagnostic laparoscopy tomorrow. Appreciate surgery input. Monitor renal function. I personally reviewed the record. Patient is interviewed and examined at bedside. Patient's care is coordinated with Berkley Hogan PA-C. Please refer to the documentation above for details of patient's presentation and for discussion of other issues. Subjective Patient seen and examined in 355. Follow-up small bowel obstruction. She is doing well today. She was already seen and examined by general surgery he is going to upgrade her diet to full liquid. She has elected to undergo laparoscopy tomorrow. She offers no acute concerns today. She denies nausea, vomiting, abdominal pain, fever, chills, sweats. Review of Systems Review of Systems: All systems reviewed & are unremarkable except as noted in HPI & below Physical Exam Physical Exam: Gen: WD/WN, NAD, A&O x3 HEENT: Normocephalic, atraumatic, conjunctivae moist, sclerae anicteric, mucous membranes moist. Lung: Clear to Auscultation bilaterally, no wheezes/rales/rhonchi Heart: Regular rate, regular rhythm, no murmurs, rubs, or gallops Abdomen: Soft, NT, ND +BS x 4 Extremities: No edema Skin: Warm, no rash, negative turgor. Results & Data Results & Data Vital Signs (Past 12 Hours) Vital Signs Temp Pulse Resp BP Pulse Ox O2 Del Method 08/31/23 14:21 36.7 C 67 16 138/86 97 Room Air 08/31/23 07:16 36.3 C L 67 16 111/74 100 Room Air Laboratory Results BMP 08/31/23 06:26 Sodium 141 Potassium 3.6 Chloride 110 H Carbon Dioxide 28 BUN 5 L Creatinine 0.98 Glucose 113 H Calcium 8.7 Patient's BMP, mag, Phos was personally reviewed and interpreted by myself. Diagnostic Findings KUB: Resolution of the previously noted small bowel obstruction, this was independently ordered, interpreted and reviewed by myself. Medications Administered Current Inpatient Medications Acetaminophen (Acetaminophen 325 Mg Tab) 650 mg PO Q4H PRN PRN Reason: pain/fever Stop: 09/29/23 05:35 Last Admin: 08/30/23 13:13 Dose: 650 mg Enoxaparin Sodium (Enoxaparin Inj 40 Mg/0.4 Ml Syr) 40 mg SQ Q24H DINORA Stop: 09/29/23 05:59 Last Admin: 08/31/23 05:42 Dose: 40 mg Hydromorphone HCl (Hydromorphone Inj 0.5 Mg/0.5 Ml Syr) 0.5 mg IV Q3H PRN PRN Reason: Pain Stop: 09/13/23 05:35 Dextrose/Sodium Chloride (D5w And 1/2nss) 1,000 mls @ 125 mls/hr IV .Q8H DINORA Stop: 09/29/23 05:35 Last Infusion: 08/31/23 09:52 Dose: 0 mls/hr Letrozole (Letrozole 2.5 Mg Tab) 2.5 mg PO DAILY DINORA Stop: 09/29/23 08:59 Last Admin: 08/31/23 09:11 Dose: 2.5 mg Miscellaneous (Order Awaiting Action: Ribociclib [Kisqali] 400 Mg/Day (200 Mg X 2) Tablet) 1 each N/A QS DINORA Stop: 09/29/23 07:59 Last Admin: 08/31/23 09:13 Dose: Not Given Ondansetron HCl (Ondansetron Inj 2 Mg/Ml 2 Ml Vial) 4 mg IV Q6H PRN PRN Reason: Nausea Stop: 09/29/23 05:35 Last Admin: 08/30/23 20:27 Dose: 4 mg Pantoprazole Sodium (Pantoprazole 40 Mg Tab) 40 mg PO BID DINORA Stop: 09/29/23 08:59 Last Admin: 08/31/23 09:11 Dose: 40 mg Trazodone HCl (Trazodone Hcl 50 Mg Tab) 50 mg PO HS DINORA Stop: 09/29/23 20:59 Last Admin: 08/30/23 20:27 Dose: 50 mg
[2023-08-31] MEDS: traZODone HCL 50 MG TAB PO SCH (20:39)
[2023-09-01] MEDS: D5W AND 1/2NSS 1,000 ML IV SCH ×3 (02:27→23:15)
--- NOTE | 2023-09-01 06:50 | History & Physical Bridge Note ---
Date of Service September 01, 2023 History & Physical Bridge Note I have examined the patient, reviewed the History & Physical and in the interval since the performance of the History & Physical I have noted the following changes of clinical significance: no changes noted
[2023-09-01 08:17] LABS: BUN Creatinine Ratio 3.8 (10-20); Calcium 8.7 mg/dl (8.6-10.3); Creatinine Clr Calc Pharmacy 66.6 ml/min; Est GFR (African American) 71.7 ml/min; Est GFR (Non-African American) 61.9 ml/min; Potassium 3.9 mmol/L (3.5-5.1)
[2023-09-01] MEDS: PANTOprazole 40 MG TAB PO SCH ×2 (09:00→20:33)
[2023-09-01] MEDS ORDERED: PROPOFOL IV EMULSION 10 MG/ML 20 ML VIAL IV ONE (10:03)
[2023-09-01] MEDS ORDERED: ONDANSETRON INJ 2 MG/ML 2 ML VIAL ONE (10:03)
[2023-09-01] MEDS ORDERED: DEXAMETHASONE SOD INJ 4 MG/ML VIAL ONE (10:03)
[2023-09-01] MEDS ORDERED: MIDAZOLAM HCL 1 MG/ML 2ML VIAL ONE (10:03)
[2023-09-01] MEDS ORDERED: LIDOCAINE 2% 2 ML VIAL/AMP(20MG/ML) INFIL ONE (10:03)
[2023-09-01] MEDS ORDERED: ROCURONIUM BROMIDE 10 MG/ML 5 ML VIAL IV ONE (10:03)
[2023-09-01] MEDS ORDERED: fentaNYL citrate PF 100 MCG/2 ML VIAL ONE ×3 (10:04→14:30)
[2023-09-01] MEDS ORDERED: SUGAMMADEX SODIUM 200 MG/2 ML VIAL IV ONE (10:04)
[2023-09-01] MEDS ORDERED: LACTATED RINGER'S 1,000 ML IV SCH (11:45)
[2023-09-01] MEDS ORDERED: ceFAZolin 2000MG 2,000 MG/15 ML SYR IV ONE (12:16)
[2023-09-01] MEDS ORDERED: BUPIVACAINE/EPINEPHRINE 0.5% MPF 1:200,000 30 ML VIAL ONE (12:16)
[2023-09-01] MEDS ORDERED: ePHEDrine sulfate 50 MG/ML AMP IV PRN (12:29)
[2023-09-01] MEDS ORDERED: PROMETHAZINE HCL 6.25 MG in SODIUM CHLORIDE 0.9% 50 ML IV PRN (12:29)
[2023-09-01] MEDS ORDERED: ONDANSETRON INJ 2 MG/ML 2 ML VIAL IV PRN (12:29)
[2023-09-01] MEDS ORDERED: SCOPOLAMINE 1 MG TDSY TD ONE ×2 (12:29→12:31)
[2023-09-01] MEDS ORDERED: ATROPINE SULFATE 0.1 MG/ML 10ML SYR IV PRN (12:29)
--- NOTE | 2023-09-01 12:58 | Anesthesiology Consultation ---
Date of Service September 01, 2023 Assessment & Plan Chart Review Chart Review: Acceptable Risk for Surgery and Patient NOT seen in Pre Admission Testing Consults Requested none ASA ASA3 Proposed Anesthesia Anesthesia Type: General Risk / Benefits Reviewed With: PT / POA / Parent / Guardian, Accepts Plan and Informed Consent Obtained History Surgery Operation Date: 09/01/23 13:05 Proposed Procedures p Diagnostic Laparoscopy - Release of Small Bowel Obstruction - Derek Teresa, DO Height/Weight Height: 5 ft 6 in Weight: 75.6 kg Allergies Allergy/AdvReac Type Severity Reaction Status Date / Time No Known Allergies Allergy Verified 08/30/23 00:43 Medications Home Medications Medication Instructions Recorded Confirmed Last Taken letrozole 2.5 mg tablet 2.5 mg PO DAILY 07/03/23 08/30/23 08/29/23 omeprazole 20 mg tablet,delayed 20 mg PO BID 07/03/23 08/30/23 08/29/23 release ribociclib 400 mg/day (200 mg x 2) 400 mg PO DAILY 07/03/23 08/30/23 08/29/23 tablets (Kisqali) trazodone 50 mg tablet 50 mg PO HS 07/03/23 08/30/23 08/29/23 polyethylene glycol 3350 17 gram 17 g PO DAILY #30 ea 07/05/23 08/30/23 08/28/23 oral powder packet (Miralax) docusate sodium 100 mg capsule 200 mg PO BID 08/12/23 08/30/23 08/28/23 (Colace) Active Medications Generic Name Dose Route Start Last Admin Trade Name Freq PRN Reason Stop Dose Admin Acetaminophen 650 mg 08/30/23 05:36 08/30/23 13:13 Acetaminophen 325 Mg Tab PO 09/29/23 05:35 650 mg Q4H PRN Administration pain/fever Enoxaparin Sodium 40 mg 08/30/23 06:00 08/31/23 05:42 Enoxaparin Inj 40 Mg/0.4 Ml Syr SQ 09/29/23 05:59 40 mg Q24H DINORA Administration Dextrose/Sodium Chloride 1,000 mls @ 125 mls/hr 08/30/23 05:36 09/01/23 11:48 D5w And 1/2nss IV 09/29/23 05:35 0 mls/hr .Q8H DINORA Infusion Lactated Ringer's 1,000 mls @ 15 mls/hr 09/01/23 11:45 09/01/23 12:40 Lr IV 10/01/23 11:44 Infused .Q24H DINORA Infusion Letrozole 2.5 mg 08/30/23 09:00 08/31/23 09:11 Letrozole 2.5 Mg Tab PO 09/29/23 08:59 2.5 mg DAILY DINORA Administration Miscellaneous 1 each 08/30/23 08:00 09/01/23 07:56 Order Awaiting Action: Ribociclib [Kisqali] 400 Mg/Day (200 Mg X 2) Tablet N/A 09/29/23 07:59 Not Given QS DINORA Ondansetron HCl 4 mg 08/30/23 05:36 08/30/23 20:27 Ondansetron Inj 2 Mg/Ml 2 Ml Vial IV 09/29/23 05:35 4 mg Q6H PRN Administration Nausea Pantoprazole Sodium 40 mg 08/30/23 09:00 08/31/23 20:39 Pantoprazole 40 Mg Tab PO 09/29/23 08:59 40 mg BID DINORA Administration Trazodone HCl 50 mg 08/30/23 21:00 08/31/23 20:39 Trazodone Hcl 50 Mg Tab PO 09/29/23 20:59 50 mg HS DINORA Administration NPO Date Last Intake of Fluids: 08/31/23 Time Last Intake of Fluids: 19:00 Date Last Intake of Solids: 08/29/23 Time Last Intake of Solids: 22:00 Past Medical History Medical History Sarcoidosis Breast cancer (03/21/12) "Self detected right breast mass Status post right breast ultrasound and core needle biopsy revealing invasive ductal carcinoma with extensive DCIS and invasive lobular carcinoma estrogen receptor positive, progesterone receptor positive, and HER-2/rashida negative Status post right mastectomy and axillary dissection with left prophylactic mastectomy Stage pT3 bN3 M0 Status post systemic chemotherapy with TAC Status post completion of radiation therapy 01/25/2013 received 5920 cGy Status post placement of permanent implants " Past Family History Family History Father Alive and well Mother Alzheimer disease Denies family history of Heart disease Breast cancer Past Surgical History Surgical History Hx laparoscopic cholecystectomy (10/02/19) Laparoscopic Cholecystectomy with Cholangiogram Dr. Vargas 10/02/19 History of D&C History of esophagogastroduodenoscopy (EGD) 11/2018 dx gastritis History of bronchoscopy History of oophorectomy History of bilateral mastectomy 04/21/2012 Right mastectomy with right axillary lymph node dissectiona nd left prophylactic mastectomy 04/21/12 Dr. Carbajal at [facility] Past Anesthesia History No Hx of Anesthesia Complications and No Family Hx of Anesthesia Complications Social History Smoking Status: Never smoker Do You Dip or Chew Tobacco: No Hx Alcohol Use: No Alcohol type: beer, wine and hard liquor alcohol intake frequency: holidays/special occasions only Hx Substance Use: No Review of Systems ROS Unobtainable: All systems reviewed & are unremarkable except as noted in HPI & below Physical Exam Vital Signs Last Vital Signs Temp 36.7 C 09/01/23 11:55 Pulse 77 09/01/23 11:55 Resp 18 09/01/23 11:55 BP 133/83 09/01/23 11:55 Pulse Ox 98 09/01/23 11:55 O2 Del Method Room Air 09/01/23 11:55 Constitutional no acute distress ENMT Mouth: no TMJ abnormality Thyromental Distance: > or= 3.5 Finger Breadths Mallampati Class: II Neck normal visual inspection and trachea midline; neck extension not limited Respiratory normal respiratory effort Auscultation: lungs clear to auscultation bilaterally Cardiovascular Rate/Rhythm: regular rate and regular rhythm Heart Sounds: no murmur Musculoskeletal Spine: normal cervical ROM Extremities: full ROM of extremities Neurologic moves all extremities Psychiatric Orientation: alert and oriented x 3 Testing Laboratory Results 08/30/23 07:16 09/01/23 06:56 Urine Color Yellow 08/30/23 04:27 Urine Appearance Clear (Clear) 08/30/23 04:27 Urine pH 6.0 (4.5-7.5) 08/30/23 04:27 Ur Specific [place] 1.023 (1.000-1.030) 08/30/23 04:27 Urine Protein Trace (Negative) H 08/30/23 04:27 Urine Glucose (UA) Negative (Negative) 08/30/23 04:27 Urine Ketones Trace (Negative) H 08/30/23 04:27 Urine Nitrite Negative (Negative) 08/30/23 04:27 Ur Leukocyte Esterase Negative (Negative) 08/30/23 04:27 Urine WBC (Auto) 1-5 /hpf (0-5) 08/30/23 04:27 Urine RBC (Auto) 0-4 /hpf (0-4) 08/30/23 04:27 U Hyaline Cast (Auto) 1-5 /lpf (0-5) 08/30/23 04:27 U Epithel Cells (Auto) 5-10 /lpf (0-5) H 08/30/23 04:27 Urine Bacteria (Auto) Negative (Negative) 08/30/23 04:27
[2023-09-01] MEDS ORDERED: diphenhydrAMINE 50 MG/ML VIAL ONE (14:37)
[2023-09-01] MEDS: HYDROmorphone INJ 1 MG/ML SYRINGE IV PRN ×6 (15:00→23:16)
[2023-09-01] MEDS: fentaNYL citrate PF 100 MCG/2 ML VIAL IV PRN ×4 (15:20→16:00)
--- NOTE | 2023-09-01 15:25 | Operative Report ---
PG Post Operative Report Pre & Post Diagnosis Operation Date: 09/01/23 13:05 Pre-Op Diagnosis: Recurrent small bowel obstruction Post-Op Diagnosis: Recurrent small bowel obstruction I identified the patient and participated in the time-out.: Yes Procedure Operation Date: 09/01/23 13:05 Actual Procedures p Diagnostic Laparoscopy - Release of Small Bowel Obstruction, mini laparotomy with partial resection of small bowel(Not Applicable) - Derek Teresa DO Surgeon Derek Teresa DO Timber Poisoner yoan Raines Estimated Blood Loss 25 Findings Consistent with Post-Op Diagnosis Specimens portion of small bowel Description of Procedure After informed consent was obtained the patient was taken to the operating room and placed in supine position. After successful intubation a nasogastric tube was placed and the abdomen was sterilely prepped and draped in usual fashion. An upper midline incision was made with an 11 blade scalpel and carried down through the soft tissue using cautery. The anterior fascia was opened using cautery and two #0 Vicryl stay sutures were placed. Peritoneum was elevated using hemostats and incised under direct vision using a Metzenbaum scissor. Finger sweep was performed. A 12 mm Robertson trocar was placed and the abdomen was insufflated to 18 mmHg. Laparoscope was inserted. There was some dilated proximal bowel loops and decompressed distal small bowel. I placed a left lower quadrant as well as a left mid abdominal 5 mm trocar. I began by running the small bowel from the cecum backwards. This was the decompressed portion of the bowel. Eventually at the midportion of the small bowel there was an obvious site of her recurrent obstruction. There was small bowel kinked and folded upon itself and attached via an adhesive band to the right colon. I was able to take this adhesive band down using the harmonic scalpel as well as blunt dissection and small amount of scissor lysis. However once I freed up the adhesive band the small bowel itself had about a 6 inch segment that was tightly bound to itself and appeared rather firm as well as the mesentery associated with it. I felt this would continue to be a problem for her and decided to resect it. Before doing this I did run the entire small bowel from here back to the ligament of Treitz and from there distally to the ileocecal valve. No other abnormalities were noted within the abdominal cavity itself. We removed the two 5 mm trocars and extended the camera port site inferiorly using cautery. I was able to deliver the bowel out of the abdomen on to the abdominal wall. MICKEY brown cartridge linear stapler was used to transect the small bowel proximal to this abnormal area as well as distal to it. The harmonic scalpel was used to take down the mesentery and the portion of small bowel was sent to pathology. It was very firm and certainly abnormal. Next I performed a [id number] small bowel anastomosis using a MICKEY brown cartridge linear stapler. The common enterotomy was closed in 2 layers with a handsewn technique using 3-0 Monocryl for the serosal/mucosal layer followed by 3-0 silk for serosal layer in Lembert fashion. The mesenteric defect was closed using 2-0 Vicryl in a running fashion. 3-0 silk was also used to place a crotch stitch. Anastomosis was widely patent and there was no evidence of ischemia. This was placed back into the abdominal cavity. 0 PDS was used to primarily close the fascia. The wound was thoroughly irrigated and closed in 2 layers using 3-0 Vicryl for deep layers and 4-0 Monocryl for skin. The 2 smaller trocar sites were also closed using 4- 0 Monocryl. Marcaine with epinephrine was injected around the incision sites for postoperative analgesia and skin glue used as a dressing. The patient was awakened ,extubated and transferred to recovery in stable condition. My physician therapist's assistant was present for the entire case ,was instrumental in assisting with all aspects of the case including the bowel resection running the camera wound closure and dressing placement. I attest to the content of the Intraoperative Record and any orders documented therein. Any exceptions are noted below.
[2023-09-01] MEDS ORDERED: KETOROLAC 30 MG/ML VIAL IV ONE (15:26)
[2023-09-01] MEDS ORDERED: KETOROLAC 30 MG/ML VIAL ONE (15:29)
[2023-09-01] MEDS ORDERED: HYDROmorphone INJ 0.5 MG/0.5 ML SYR IV PRN (16:32)
--- NOTE | 2023-09-01 16:32 | Anesthesiology Progress Note ---
Date of Service September 01, 2023 Anesthesia Post Procedure Vital Signs Vital Signs: Temp Pulse Pulse Resp BP Pulse Ox O2 Del Method 09/01/23 16:10 79 15 126/80 100 Room Air 09/01/23 16:00 36.7 C 75 14 124/79 100 Nasal Cannula 09/01/23 15:50 67 12 135/79 100 Nasal Cannula 09/01/23 15:40 75 13 141/85 H 100 Nasal Cannula 09/01/23 15:30 80 12 138/94 100 Oxymask 09/01/23 15:20 36.8 C 90 12 139/88 100 Oxymask 09/01/23 15:10 93 H 15 137/83 100 Oxymask 09/01/23 15:00 83 19 133/78 100 Oxymask 09/01/23 14:50 105 H 17 134/80 100 Oxymask 09/01/23 14:44 36.3 C L 76 17 112/65 99 Oxymask 09/01/23 11:55 36.7 C 77 18 133/83 98 Room Air 09/01/23 08:16 36.6 C 60 18 123/85 99 Room Air 09/01/23 08:10 Room Air 08/31/23 20:12 36.8 C 62 17 124/83 98 Room Air O2 Flow Rate 09/01/23 16:10 09/01/23 16:00 2 09/01/23 15:50 2 09/01/23 15:40 2 09/01/23 15:30 4 09/01/23 15:20 6 09/01/23 15:10 6 09/01/23 15:00 6 09/01/23 14:50 6 09/01/23 14:44 8 09/01/23 11:55 09/01/23 08:16 09/01/23 08:10 08/31/23 20:12 Pain Intensity Upper Abdomen: Pain Intensity: 8 Abdomen: Pain Intensity: 5 Transfer of Care Handoff Completed per policy Notes Mental Status: alert / awake / arousable and participated in evaluation Patient Amnestic to Procedure: Yes Nausea / Vomiting: adequately controlled Pain: adequately controlled Airway Patency, RR, SpO2: stable & adequate BP & HR: stable & adequate Hydration State: stable & adequate Anesthetic Complications: no major complications apparent
[2023-09-01] MEDS: LETROZOLE 2.5 MG TAB PO SCH (16:37)
[2023-09-01] MEDS: CHECK SCOPOLAMINE PATCH PLACEMENT SCH ×2 (16:57→23:40)
[2023-09-01] MEDS: ACETAMINOPHEN 1,000 MG/100 ML VIAL IV SCH (17:18)
--- NOTE | 2023-09-01 19:09 | Hospitalist Progress Note ---
Date of Service September 01, 2023 Assessment & Plan (1) SBO (small bowel obstruction): Plan: 52 yr old Female with PMH of hyperlipidemia, left multifocal metastatic breast Cancer stage IIIc s/p bilateral mastectomy with reconstruction and on chemo, CKD stage III and sarcoidosis presents with abdominal pain and found to have recurrent small bowel obstruction. She is being managed for the following: Small bowel obstruction Recurrent S/P Diagnostic Laparoscopy - Release of Small Bowel Obstruction, mini laparotomy with partial resection of small bowel by on 09/01/23 Abdominal pain, nausea vomiting resolved Pain is controlled Clear liquid diet today Appreciate surgery input History of metastatic breast cancer stage IIIc s/p bilateral mastectomies On letrozole and Kisqali. Patient had a EGD which showed gastric ulcers and pathology was consistent with breast primary Heme-onc to continue current medications and follow-up EGD in August 2023 Patient is going to have second opinion with [facility] as per heme-onc notes seems at the end of this month TYRON on CKD stage III Presented with creatinine 1.3 Avoid nephrotoxic agents Cr back to baseline Sarcoidosis Seems currently not under treatment DVT prophylaxis: Lovenox held SCDs for now Code Status Full code Admission and Anticipated Discharge Date Admission Date: August 30, 2023 Subjective Patient is seen and examined at bedside Had 2 bowel movements this morning Underwent diagnostic laparoscopy today Denies any chest pain, nausea, dyspnea, dizziness, abdominal pain Review of Systems Review of Systems: All systems reviewed & are unremarkable except as noted in Subjective Physical Exam Physical Exam: Physical Exam: Vitals signs as noted above General Appearance:Moderately built and nourished, no apparent distress Head: normocephalic, Atraumatic Eyes: normal inspection, EOMI Neck: supple, Trachea midline Respiratory/Chest: Normal breath sounds, CTA, No accessory muscle use Cardiovascular: S1, S2, No murmur Abdomen/GI:Soft, Non tender, Bowel sounds present Extremities/Musculoskeletal:normal inspection, no edema Neurologic/Psych:AAOX3, grossly no focal neurological deficits Skin: normal color, warm Results & Data Results & Data Vital Signs (Past 12 Hours) Vital Signs Temp Pulse Pulse Resp BP Pulse Ox O2 Del Method 09/01/23 18:25 36.8 C 72 16 122/74 94 Room Air 09/01/23 17:25 36.8 C 77 16 131/70 94 Room Air 09/01/23 16:57 36.7 C 76 18 127/82 96 Room Air 09/01/23 16:35 36.8 C 98 H 15 131/74 94 Room Air 09/01/23 16:10 79 15 126/80 100 Room Air 09/01/23 16:00 36.7 C 75 14 124/79 100 Nasal Cannula 09/01/23 15:50 67 12 135/79 100 Nasal Cannula 09/01/23 15:40 75 13 141/85 H 100 Nasal Cannula 09/01/23 15:30 80 12 138/94 100 Oxymask 09/01/23 15:20 36.8 C 90 12 139/88 100 Oxymask 09/01/23 15:10 93 H 15 137/83 100 Oxymask 09/01/23 15:00 83 19 133/78 100 Oxymask 09/01/23 14:50 105 H 17 134/80 100 Oxymask 09/01/23 14:44 36.3 C L 76 17 112/65 99 Oxymask 09/01/23 11:55 36.7 C 77 18 133/83 98 Room Air 09/01/23 08:16 36.6 C 60 18 123/85 99 Room Air 09/01/23 08:10 Room Air O2 Flow Rate 09/01/23 18:25 09/01/23 17:25 09/01/23 16:57 09/01/23 16:35 09/01/23 16:10 09/01/23 16:00 2 09/01/23 15:50 2 09/01/23 15:40 2 09/01/23 15:30 4 09/01/23 15:20 6 09/01/23 15:10 6 09/01/23 15:00 6 09/01/23 14:50 6 09/01/23 14:44 8 09/01/23 11:55 09/01/23 08:16 09/01/23 08:10 Laboratory Results BMP 09/01/23 06:56 Sodium 141 Potassium 3.9 Chloride 110 H Carbon Dioxide 28 BUN 4 L Creatinine 1.05 Glucose 118 H Calcium 8.7
[2023-09-01] MEDS: ONDANSETRON INJ 2 MG/ML 2 ML VIAL IV PRN (19:36)
[2023-09-01] MEDS: oxyCODONE HCL IR 5 MG TAB (IMMEDIATE RELEASE) PO PRN (19:36)
[2023-09-01] MEDS: traZODone HCL 50 MG TAB PO SCH (20:33)
[2023-09-02] MEDS: ACETAMINOPHEN 1,000 MG/100 ML VIAL IV SCH ×3 (01:30→17:17)
[2023-09-02] MEDS: HYDROmorphone INJ 1 MG/ML SYRINGE IV PRN ×7 (02:26→20:54)
[2023-09-02] MEDS: oxyCODONE HCL IR 5 MG TAB (IMMEDIATE RELEASE) PO PRN ×3 (02:58→22:04)
[2023-09-02] MEDS: D5W AND 1/2NSS 1,000 ML IV SCH ×2 (06:58→19:10)
--- NOTE | 2023-09-02 07:35 | Surgery Progress Note ---
Date of Service September 02, 2023 Assessment & Plan (1) SBO (small bowel obstruction): Plan: POD#1 dx laparoscopy with mini laparotomy and small bowel resection, release of SBO Labs pending this AM, vitals stable Pain controlled on current regimen Will continue with clears for now while awaiting return of bowel function Encourage ambulation and pulmonary toilet [facility] covering the wknd as above. feeling well. no nausea. tr clears/would like fulls awaiting return of bowel fx Dr. Galvan covering for weekend. Admission and Anticipated Discharge Date Admission Date: August 30, 2023 Subjective Patient feeling okay this AM. Reports pain is controlled on current regimen. She has been taking in some water. Some nausea last night, but feels better this AM. No flatus/BM since OR Physical Exam Physical Exam: awake/alert, no distress Gastrointestinal (Abdomen): Inspection/Auscultation: + abdominal surgical incision (c/d/i with some ecchymosis surrounding incisions) Percussion/Palpation: + abdomen tender (expected jorge incisional discomfort ) and abdomen soft Results & Data Vital Signs (Past 12 Hours) Vital Signs Temp Pulse Resp BP Pulse Ox O2 Del Method 09/02/23 07:09 36.8 C 64 16 119/72 96 Room Air 09/02/23 02:25 36.5 C 61 18 125/81 96 Room Air 09/01/23 23:16 36.7 C 61 18 120/75 96 Room Air PG Care Time/CCT Total # of Minutes Spent Total Time Spent with Patient: Total time spent is greater than 50% in coordination of care (as documented) at patient's floor/unit and/or counseling patient: Coding Level of Care Code 13998 Post Operative Follow-Up Diagnoses SBO (small bowel obstruction) K56.609
[2023-09-02 07:42] LABS: Hemoglobin 10.7 g/dl (12.0-16.0); Mean Corpuscular Hemoglobin 31.4 pg (25.0-34.0); Mean Corpuscular Hgb Conc 33.4 g/dL (32.0-36.0); Mean Corpuscular Volume 93.8 fL (80.0-100.0); Platelet Count 172 K/uL (130-400); RDW Coefficient of Variation 12.2 % (11.5-14.5); RDW Standard Deviation 42.1 fL (36.4-46.3); Red Blood Count 3.41 M/uL (4.20-5.40); White Blood Count 4.09 K/ul (4.8-10.8)
[2023-09-02 08:12] LABS: BUN Creatinine Ratio 5.7 (10-20); Calcium 8.7 mg/dl (8.6-10.3); Creatinine Clr Calc Pharmacy 79.5 ml/min; Est GFR (African American) 88.8 ml/min; Est GFR (Non-African American) 76.6 ml/min; Potassium 3.8 mmol/L (3.5-5.1)
[2023-09-02] MEDS: CHECK SCOPOLAMINE PATCH PLACEMENT SCH ×2 (08:53→17:18)
[2023-09-02] MEDS: PANTOprazole 40 MG TAB PO SCH ×2 (08:53→20:55)
[2023-09-02] MEDS: LETROZOLE 2.5 MG TAB PO SCH (09:27)
[2023-09-02] MEDS: ONDANSETRON INJ 2 MG/ML 2 ML VIAL IV PRN (15:14)
--- NOTE | 2023-09-02 18:06 | Communication Note ---
Date of Service: September 02, 2023 I discussed the patient by the nurse. Over the course of today she has had increasing pain on the left side. She has been using IV pain medications every 3 hours. She is postop day #1 status post exploratory laparoscopy with mini laparotomy for small bowel resection and reanastomosis. She had some nausea earlier today. She denies nausea currently. She is afebrile, vital signs are stable and normal. White blood cell count this morning was 4. She has appropriate tenderness to palpation in the abdomen. Slight erythema near the incision. We will observe for now. If she develops any fevers, tachycardia, increasing nausea or pain, we will reevaluate. I will check labs in the morning.
--- NOTE | 2023-09-02 18:41 | Hospitalist Progress Note ---
Date of Service September 02, 2023 Assessment & Plan (1) SBO (small bowel obstruction): Plan: 52 yr old Female with PMH of hyperlipidemia, left multifocal metastatic breast Cancer stage IIIc s/p bilateral mastectomy with reconstruction and on chemo, CKD stage III and sarcoidosis presents with abdominal pain and found to have recurrent small bowel obstruction. She is being managed for the following: Small bowel obstruction Recurrent S/P Diagnostic Laparoscopy - Release of Small Bowel Obstruction, mini laparotomy with partial resection of small bowel by on 09/01/23 Abdominal pain, nausea vomiting resolved Pain control as needed Clear liquid diet until return of bowel function Appreciate surgery input If abdominal pain persistent, surgery plans to reevaluate tomorrow Continue current management Continue gentle IV fluids History of metastatic breast cancer stage IIIc s/p bilateral mastectomies On letrozole and Kisqali. Patient had a EGD which showed gastric ulcers and pathology was consistent with breast primary Heme-onc to continue current medications and follow-up EGD in August 2023 Patient is going to have second opinion with [facility] as per heme-onc notes seems at the end of this month TYRON on CKD stage III Presented with creatinine 1.3 Avoid nephrotoxic agents Cr back to baseline Sarcoidosis Seems currently not under treatment DVT prophylaxis: Lovenox held SCDs for now Patient ambulating Code Status Full code Admission and Anticipated Discharge Date Admission Date: August 30, 2023 Subjective Patient is seen and examined at bedside States having left sided abdominal pain at the site of surgery Also reported transient nausea this morning No bowel movement since surgery Denies any chest pain, nausea, dyspnea, dizziness, abdominal pain Review of Systems Review of Systems: All systems reviewed & are unremarkable except as noted in Subjective Physical Exam Physical Exam: Physical Exam: Vitals signs as noted above General Appearance:Moderately built and nourished, no apparent distress Head: normocephalic, Atraumatic Eyes: normal inspection, EOMI Neck: supple, Trachea midline Respiratory/Chest: Normal breath sounds, CTA, No accessory muscle use Cardiovascular: S1, S2, No murmur Abdomen/GI:Soft, Non tender, Bowel sounds decreased Extremities/Musculoskeletal:normal inspection, no edema Neurologic/Psych:AAOX3, grossly no focal neurological deficits Skin: normal color, warm Results & Data Results & Data Vital Signs (Past 12 Hours) Vital Signs Temp Pulse Resp BP Pulse Ox O2 Del Method 09/02/23 14:18 36.8 C 55 L 16 122/78 99 Room Air 09/02/23 07:09 36.8 C 64 16 119/72 96 Room Air Laboratory Results Short CBC 09/02/23 Range/Units 07:16 WBC 4.09 L (4.8-10.8) K/ul Hgb 10.7 L (12.0-16.0) g/dl Hct 32.0 L (37.0-47.0) % Plt Count 172 (130-400) K/uL BMP 09/02/23 07:16 Sodium 138 Potassium 3.8 Chloride 107 Carbon Dioxide 27 BUN 5 L Creatinine 0.88 Glucose 120 H Calcium 8.7
[2023-09-02] MEDS: diphenhydrAMINE HCL 25 MG/10 ML UDC PO PRN (20:53)
[2023-09-02] MEDS: traZODone HCL 50 MG TAB PO SCH (20:56)
[2023-09-02] MEDS ORDERED: LORATADINE 10 MG TAB PO ONE (21:04)
[2023-09-02] MEDS ORDERED: diphenhydrAMINE 2%/ZINC 0.1% CREAM 28.4GM TUBE EXT PRN (21:13)
[2023-09-02 22:25] LABS: Appearance Urine Clear (Clear); Bilirubin Urine Negative (Negative); Blood Urine Negative (Negative); Color Urine Yellow; Glucose Urine UA Negative (Negative); Ketones Urine Negative (Negative); Leukocyte Esterase Urine Negative (Negative); Nitrite Urine Negative (Negative); Protein Urine Negative (Negative); Specific Gravity Urine 1.005 (1.000-1.030); Urobilinogen Urine Negative (Negative); pH Urine 6.5 (4.5-7.5)
[2023-09-03] MEDS: ACETAMINOPHEN 1,000 MG/100 ML VIAL IV SCH ×3 (00:47→17:32)
[2023-09-03] MEDS: HYDROmorphone INJ 1 MG/ML SYRINGE IV PRN ×8 (00:47→23:13)
[2023-09-03] MEDS: CHECK SCOPOLAMINE PATCH PLACEMENT SCH ×4 (00:48→23:13)
--- NOTE | 2023-09-03 02:22 | Surgery Progress Note ---
Date of Service September 03, 2023 Assessment & Plan (1) SBO (small bowel obstruction): Plan: POD #2 s/p exploratory laparoscopy with mini laparotomy and small bowel resection for SBO Improving from yesterday Continue clears Recheck labs today Incentive spirometry and ambulation for pulmonary toilet DVT prophylaxis with SCD boots and Lovenox Admission and Anticipated Discharge Date Admission Date: August 30, 2023 Subjective Less pain than yesterday evening; no nausea or vomiting. Resting comfortably in bed Physical Exam Physical Exam: AFVSS NAD, A&O x 3 Abdomen: Soft, mild distention Mild TTP in left abdomen Incisions healing well without drainage Dermabond in place Results & Data Vital Signs (Past 12 Hours) Vital Signs Temp Pulse Resp BP Pulse Ox O2 Del Method 09/02/23 19:56 36.8 C 60 16 132/84 98 Room Air
[2023-09-03] MEDS: diphenhydrAMINE HCL 25 MG/10 ML UDC PO PRN ×4 (03:37→21:00)
[2023-09-03] MEDS: D5W AND 1/2NSS 1,000 ML IV SCH (06:26)
[2023-09-03 07:10] LABS: Hematocrit (blood only) 29.9 % (37.0-47.0); Hemoglobin 9.8 g/dl (12.0-16.0); Mean Corpuscular Hemoglobin 31.4 pg (25.0-34.0); Mean Corpuscular Hgb Conc 32.8 g/dL (32.0-36.0); Mean Corpuscular Volume 95.8 fL (80.0-100.0); Mean Platelet Volume 10.1 fL (9.4-12.4); Platelet Count 134 K/uL (130-400); RDW Coefficient of Variation 12.4 % (11.5-14.5); RDW Standard Deviation 42.8 fL (36.4-46.3); Red Blood Count 3.12 M/uL (4.20-5.40); White Blood Count 3.12 K/ul (4.8-10.8)
[2023-09-03 07:55] LABS: BUN Creatinine Ratio 4.5 (10-20); Calcium 7.9 mg/dl (8.6-10.3); Creatinine Clr Calc Pharmacy 79.5 ml/min; Est GFR (African American) 88.8 ml/min; Est GFR (Non-African American) 76.6 ml/min; Potassium 3.3 mmol/L (3.5-5.1)
[2023-09-03] MEDS ORDERED: POTASSIUM CHLORIDE CRTAB 20 MEQ TABCR PO ONE (08:06)
[2023-09-03] MEDS: LETROZOLE 2.5 MG TAB PO SCH (08:09)
[2023-09-03] MEDS: PANTOprazole 40 MG TAB PO SCH ×2 (08:10→21:00)
[2023-09-03 09:28] LABS: Estimated Average Glucose 108 mg/dl; Hemoglobin A1C 5.4 % (4.5-5.6)
[2023-09-03] MEDS: DOCUSATE SODIUM 100 MG CAP PO SCH ×2 (13:46→21:00)
--- NOTE | 2023-09-03 14:30 | Hospitalist Progress Note ---
Date of Service September 03, 2023 Assessment & Plan (1) SBO (small bowel obstruction): Plan: 52 yr old Female with PMH of hyperlipidemia, left multifocal metastatic breast Cancer stage IIIc s/p bilateral mastectomy with reconstruction and on chemo, CKD stage III and sarcoidosis presents with abdominal pain and found to have recurrent small bowel obstruction. She is being managed for the following: Small bowel obstruction Recurrent S/P Diagnostic Laparoscopy - Release of Small Bowel Obstruction, mini laparotomy with partial resection of small bowel by on 09/01/23 Abdominal pain, nausea vomiting resolved Pain control as needed Appreciate surgery input Abdominal pain slowly improving Full code diet today Surgery following Needs follow-up with surgery on discharge History of metastatic breast cancer stage IIIc s/p bilateral mastectomies On letrozole and Kisqali. Patient had a EGD which showed gastric ulcers and pathology was consistent with breast primary Heme-onc to continue current medications and follow-up EGD in August 2023 Patient is going to have second opinion with [facility] as per heme-onc notes seems at the end of this month TYRON on CKD stage III Presented with creatinine 1.3 Avoid nephrotoxic agents Cr back to baseline Hyperglycemia Sarcoidosis Seems currently not under treatment DVT prophylaxis: Lovenox SQ Code Status Full code Admission and Anticipated Discharge Date Admission Date: August 30, 2023 Subjective Patient is seen and examined at bedside Abdominal pain better today Tolerating diet States feeling bloated +Flatus, no bowel movement today Denies any chest pain, nausea, vomiting, dyspnea, dizziness, abdominal pain Review of Systems Review of Systems: All systems reviewed & are unremarkable except as noted in Subjective Physical Exam Physical Exam: Physical Exam: Vitals signs as noted above General Appearance:Moderately built and nourished, no apparent distress Head: normocephalic, Atraumatic Eyes: normal inspection, EOMI Neck: supple, Trachea midline Respiratory/Chest: Normal breath sounds, CTA, No accessory muscle use Cardiovascular: S1, S2, No murmur Abdomen/GI:Soft, mild tender, Bowel sounds decreased Extremities/Musculoskeletal:normal inspection, no edema Neurologic/Psych:AAOX3, grossly no focal neurological deficits Skin: normal color, warm Results & Data Results & Data Vital Signs (Past 12 Hours) Vital Signs Temp Pulse Resp BP Pulse Ox O2 Del Method 09/03/23 07:57 36.4 C L 76 16 146/79 H 98 Room Air Laboratory Results Short CBC 09/03/23 Range/Units 06:16 WBC 3.12 L (4.8-10.8) K/ul Hgb 9.8 L (12.0-16.0) g/dl Hct 29.9 L (37.0-47.0) % Plt Count 134 (130-400) K/uL BMP 09/03/23 06:16 Sodium 136 Potassium 3.3 L Chloride 105 Carbon Dioxide 28 BUN 4 L Creatinine 0.88 Glucose 304 H* Calcium 7.9 L Urine 09/02/23 Range/Units 22:00 Urine Color Yellow Urine Appearance Clear (Clear) Urine pH 6.5 (4.5-7.5) Ur Specific [place] 1.005 (1.000-1.030) Urine Protein Negative (Negative) Urine Glucose (UA) Negative (Negative)
[2023-09-03] MEDS: ONDANSETRON INJ 2 MG/ML 2 ML VIAL IV PRN (16:31)
[2023-09-03] MEDS ORDERED: SIMETHICONE 80 MG CHEW PO ONE (18:32)
[2023-09-03] MEDS: traZODone HCL 50 MG TAB PO SCH (21:00)
[2023-09-04] MEDS: ACETAMINOPHEN 1,000 MG/100 ML VIAL IV SCH ×2 (01:33→08:31)
[2023-09-04] MEDS: diphenhydrAMINE HCL 25 MG/10 ML UDC PO PRN (02:05)
[2023-09-04] MEDS: HYDROmorphone INJ 1 MG/ML SYRINGE IV PRN ×5 (02:05→22:25)
[2023-09-04] MEDS: ENOXAPARIN INJ 40 MG/0.4 ML SYR SQ SCH (05:11)
[2023-09-04 06:57] LABS: Hematocrit (blood only) 31.4 % (37.0-47.0); Hemoglobin 10.5 g/dl (12.0-16.0); Mean Corpuscular Hemoglobin 31.7 pg (25.0-34.0); Mean Corpuscular Hgb Conc 33.4 g/dL (32.0-36.0); Mean Corpuscular Volume 94.9 fL (80.0-100.0); Mean Platelet Volume 9.8 fL (9.4-12.4); Platelet Count 142 K/uL (130-400); RDW Coefficient of Variation 12.3 % (11.5-14.5); Red Blood Count 3.31 M/uL (4.20-5.40)
[2023-09-04 07:34] LABS: BUN Creatinine Ratio 6.8 (10-20); Calcium 8.5 mg/dl (8.6-10.3); Creatinine Clr Calc Pharmacy 79.5 ml/min; Est GFR (African American) 88.8 ml/min; Est GFR (Non-African American) 76.6 ml/min; Magnesium 1.7 mg/dl (1.7-2.4); Potassium 3.7 mmol/L (3.5-5.1)
[2023-09-04] MEDS: LETROZOLE 2.5 MG TAB PO SCH (08:24)
[2023-09-04] MEDS: PANTOprazole 40 MG TAB PO SCH ×2 (08:24→20:13)
[2023-09-04] MEDS: DOCUSATE SODIUM 100 MG CAP PO SCH ×2 (08:31→20:12)
--- NOTE | 2023-09-04 14:04 | Surgery Progress Note ---
Date of Service September 04, 2023 Assessment & Plan (1) SBO (small bowel obstruction): Plan: POD #3 s/p exploratory laparoscopy with mini laparotomy and small bowel resection for SBO Improving from yesterday Advance diet as tolerated Erythema at incisionwill start antibiotics for presumed developing wound infection Incentive spirometry and ambulation for pulmonary toilet DVT prophylaxis with SCD boots and Lovenox Possible discharge to home tomorrow Admission and Anticipated Discharge Date Admission Date: August 30, 2023 Subjective Feeling better. Tolerating full's. No nausea or vomiting. Concerned about some redness at the incision. Physical Exam Physical Exam: AFVSS NAD, A&O x 3 Abdomen: Soft, mild distention Midline incision with streaky erythema extending approximately 4 cm Some induration at the incision Dermabond in place Results & Data Vital Signs (Past 12 Hours) Vital Signs Temp Pulse Resp BP Pulse Ox O2 Del Method 09/04/23 07:48 36.5 C 80 16 137/69 94 Room Air Laboratory Results 09/04/23 Range/Units 06:14 WBC 3.20 L (4.8-10.8) K/ul RBC 3.31 L (4.20-5.40) M/uL Hgb 10.5 L (12.0-16.0) g/dl Hct 31.4 L (37.0-47.0) % MCV 94.9 (80.0-100.0) fL MCH 31.7 (25.0-34.0) pg MCHC 33.4 (32.0-36.0) g/dL RDW Std Deviation 43.0 (36.4-46.3) fL RDW Coeff of Salvatore 12.3 (11.5-14.5) % Plt Count 142 (130-400) K/uL MPV 9.8 (9.4-12.4) fL Sodium 136 (136-145) mmol/L Potassium 3.7 (3.5-5.1) mmol/L Chloride 104 (98-107) mmol/L Carbon Dioxide 28 (21-32) mmol/L Anion Gap 4 (3-11) BUN 6 (6-23) mg/dl Creatinine 0.88 (0.6-1.2) mg/dl Est Cr Clr Drug Dosing 79.5 ml/min Est GFR ( Amer) 88.8 ml/min Est GFR (Non-Af Amer) 76.6 ml/min BUN/Creatinine Ratio 6.8 L (10-20) Glucose 79 (70-99(Fasting)) mg/dl Calcium 8.5 L (8.6-10.3) mg/dl Magnesium 1.7 (1.7-2.4) mg/dl
[2023-09-04] MEDS ORDERED: PIPER/TAZO 4.5g in D5W MINI-B 100 ML IV ONE (14:30)
--- NOTE | 2023-09-04 16:24 | Hospitalist Progress Note ---
Date of Service September 04, 2023 Assessment & Plan (1) SBO (small bowel obstruction): Plan: 52 yr old Female with PMH of hyperlipidemia, left multifocal metastatic breast Cancer stage IIIc s/p bilateral mastectomy with reconstruction and on chemo, CKD stage III and sarcoidosis presents with abdominal pain and found to have recurrent small bowel obstruction. She is being managed for the following: Small bowel obstruction Recurrent S/P Diagnostic Laparoscopy - Release of Small Bowel Obstruction, mini laparotomy with partial resection of small bowel by on 09/01/23 ? Presumed developing wound infection Nausea vomiting resolved Pain control as needed Appreciate surgery input Advance diet as tolerated Surgery following Empirically started on IV antibiotics Needs follow-up with surgery on discharge Plan to discharge once cleared by surgery History of metastatic breast cancer stage IIIc s/p bilateral mastectomies On letrozole and Kisqali. Patient had a EGD which showed gastric ulcers and pathology was consistent with breast primary Heme-onc to continue current medications and follow-up EGD in August 2023 Patient is going to have second opinion with [facility] as per heme-onc notes seems at the end of this month TYRON on CKD stage III Presented with creatinine 1.3 Avoid nephrotoxic agents Cr back to baseline Hyperglycemia HbA1c 5.4 Sarcoidosis Seems currently not under treatment DVT prophylaxis: Lovenox SQ Code Status Full code Admission and Anticipated Discharge Date Admission Date: August 30, 2023 Subjective Patient is seen and examined at bedside Abdominal pain about the same as yesterday Noted to have some erythema around incisional sites Discussed with surgery today + Flatus, no bowel movement Tolerating current diet Denies any chest pain, nausea, vomiting, dyspnea, dizziness, abdominal pain Review of Systems Review of Systems: All systems reviewed & are unremarkable except as noted in Subjective Physical Exam Physical Exam: Physical Exam: Vitals signs as noted above General Appearance:Moderately built and nourished, no apparent distress Head: normocephalic, Atraumatic Eyes: normal inspection, EOMI Neck: supple, Trachea midline Respiratory/Chest: Normal breath sounds, CTA, No accessory muscle use Cardiovascular: S1, S2, No murmur Abdomen/GI:Soft, mild tender, Bowel sounds decreased, + laparoscopic scars, + erythema Extremities/Musculoskeletal:normal inspection, no edema Neurologic/Psych:AAOX3, grossly no focal neurological deficits Skin: normal color, warm Results & Data Results & Data Vital Signs (Past 12 Hours) Vital Signs Temp Pulse Resp BP Pulse Ox O2 Del Method 09/04/23 15:27 36.7 C 75 16 141/79 H 96 Room Air 09/04/23 07:48 36.5 C 80 16 137/69 94 Room Air Laboratory Results Short CBC 09/04/23 Range/Units 06:14 WBC 3.20 L (4.8-10.8) K/ul Hgb 10.5 L (12.0-16.0) g/dl Hct 31.4 L (37.0-47.0) % Plt Count 142 (130-400) K/uL BMP 09/04/23 06:14 Sodium 136 Potassium 3.7 Chloride 104 Carbon Dioxide 28 BUN 6 Creatinine 0.88 Glucose 79 Calcium 8.5 L
[2023-09-04] MEDS: ACETAMINOPHEN 325 MG TAB PO PRN (16:41)
[2023-09-04] MEDS: PIPERACILLIN/TAZOBACTAM 4.5 GM in DEXTROSE 5% MINI-B 100 ML IV SCH (18:29)
[2023-09-04] MEDS: ONDANSETRON INJ 2 MG/ML 2 ML VIAL IV PRN (18:32)
[2023-09-04] MEDS: oxyCODONE HCL IR 5 MG TAB (IMMEDIATE RELEASE) PO PRN (20:13)
[2023-09-04] MEDS: traZODone HCL 50 MG TAB PO SCH (20:13)
[2023-09-05] MEDS: oxyCODONE HCL IR 5 MG TAB (IMMEDIATE RELEASE) PO PRN ×4 (02:17→20:53)
[2023-09-05] MEDS: HYDROmorphone INJ 1 MG/ML SYRINGE IV PRN ×4 (03:30→22:24)
[2023-09-05] MEDS: PIPERACILLIN/TAZOBACTAM 4.5 GM in DEXTROSE 5% MINI-B 100 ML IV SCH ×3 (03:30→19:45)
[2023-09-05] MEDS: ENOXAPARIN INJ 40 MG/0.4 ML SYR SQ SCH (05:58)
[2023-09-05 06:54] LABS: Hematocrit (blood only) 31.2 % (37.0-47.0); Hemoglobin 10.8 g/dl (12.0-16.0); Mean Corpuscular Hemoglobin 31.8 pg (25.0-34.0); Mean Corpuscular Hgb Conc 34.6 g/dL (32.0-36.0); Mean Corpuscular Volume 91.8 fL (80.0-100.0); Mean Platelet Volume 10.3 fL (9.4-12.4); Platelet Count 157 K/uL (130-400); RDW Coefficient of Variation 12.1 % (11.5-14.5); RDW Standard Deviation 40.6 fL (36.4-46.3); White Blood Count 3.24 K/ul (4.8-10.8)
[2023-09-05 07:04] LABS: BUN Creatinine Ratio 8.1 (10-20); Calcium 8.6 mg/dl (8.6-10.3); Creatinine Clr Calc Pharmacy 81.3 ml/min; Est GFR (African American) 91.3 ml/min; Est GFR (Non-African American) 78.8 ml/min; Magnesium 1.7 mg/dl (1.7-2.4); Potassium 3.7 mmol/L (3.5-5.1)
[2023-09-05] MEDS: DOCUSATE SODIUM 100 MG CAP PO SCH ×2 (07:40→19:46)
[2023-09-05] MEDS: PANTOprazole 40 MG TAB PO SCH ×2 (07:40→19:46)
[2023-09-05] MEDS: LETROZOLE 2.5 MG TAB PO SCH (07:40)
[2023-09-05] MEDS: ACETAMINOPHEN 325 MG TAB PO PRN (07:44)
--- NOTE | 2023-09-05 08:32 | Surgery Progress Note ---
Date of Service September 05, 2023 Assessment & Plan (1) Hx of abdominal surgery: Plan: Doing well. Path still pending She would like to go home although she has not had complete return to bowel function yet. I will obtain a KUB this morning and we will reevaluate her this afternoon. There is potential discharge later today Admission and Anticipated Discharge Date Admission Date: August 30, 2023 Subjective Patient seen. Overall feeling well. Tolerating regular food last night and getting regular breakfast this morning. Her pain is much improved today and she denies nausea. No bowel movement but she is passing a lot of gas Physical Exam Physical Exam: Alert. No acute distress Mild erythema around the umbilical incision. All the incisions intact Results & Data Vital Signs (Past 12 Hours) Vital Signs Temp Pulse Resp BP Pulse Ox O2 Del Method 09/05/23 08:08 Room Air 09/05/23 07:28 36.7 C 80 16 122/78 95 Room Air PG Care Time/CCT Total # of Minutes Spent Total Time Spent with Patient: Total time spent is greater than 50% in coordination of care (as documented) at patient's floor/unit and/or counseling patient: Coding Level of Care Code 79790 Post Operative Follow-Up Diagnoses Hx of abdominal surgery Z98.890
--- NOTE | 2023-09-05 10:24 | XRay Report ---
KUB HISTORY: Small bowel obstruction. Follow-up. COMPARISON: KUB 08/31/2023. FINDINGS: Prior cholecystectomy. A few borderline dilated gas-filled loops of small bowel within the abdomen. These have slightly progressed in the interval. No renal calculi. No ureteral calculi. No p neumoperitoneum or pneumatosis. Moderate fecal retention again noted. This is similar to the prior st udy. IMPRESSION: A few borderline dilated gas-filled loops of small bowel within the abdomen which have slightly progr essed in the interval. This could represent a developing partial small bowel obstruction versus ileus . Continued follow-up recommended. ACT 112: Negative or not required by law. Electronically signed by: Renny Sánchez M.D. 09/05/2023 10:23 AM
[2023-09-05] MEDS ORDERED: SIMETHICONE 80 MG CHEW PO PRN (13:08)
[2023-09-05] MEDS: ONDANSETRON INJ 2 MG/ML 2 ML VIAL IV PRN (15:32)
--- NOTE | 2023-09-05 15:39 | Hospitalist Progress Note ---
Date of Service September 05, 2023 Assessment & Plan (1) SBO (small bowel obstruction): Plan: 52 yr old Female with PMH of hyperlipidemia, left multifocal metastatic breast Cancer stage IIIc s/p bilateral mastectomy with reconstruction and on chemo, CKD stage III and sarcoidosis presents with abdominal pain and found to have recurrent small bowel obstruction. She is being managed for the following: Small bowel obstruction Recurrent S/P Diagnostic Laparoscopy - Release of Small Bowel Obstruction, mini laparotomy with partial resection of small bowel by on 09/01/23 ? Presumed developing wound infection Nausea vomiting resolved Pain control as needed Appreciate surgery input Surgery following Empirically started on IV zosyn Needs follow-up with surgery on discharge Advance to regular diet today Plan to discharge in 1 to 2 days Plan to transition to p.o. antibiotics on discharge History of metastatic breast cancer stage IIIc s/p bilateral mastectomies On letrozole and Kisqali. Patient had a EGD which showed gastric ulcers and pathology was consistent with breast primary Heme-onc to continue current medications and follow-up EGD in August 2023 Patient is going to have second opinion with [facility] as per heme-onc notes seems at the end of this month TYRON on CKD stage III Presented with creatinine 1.3 Avoid nephrotoxic agents Cr back to baseline Hyperglycemia HbA1c 5.4 Sarcoidosis Seems currently not under treatment DVT prophylaxis: Lovenox SQ Code Status Full code Admission and Anticipated Discharge Date Admission Date: August 30, 2023 Subjective Patient is seen and examined at bedside States feeling better today Ambulating in hallways with no issues + Flatus, no bowel movement yet Discussed with surgery today Erythema at surgical site improved Tolerating current diet Denies any chest pain, nausea, vomiting, dyspnea, dizziness, abdominal pain Review of Systems Review of Systems: All systems reviewed & are unremarkable except as noted in Subjective Physical Exam Physical Exam: Physical Exam: Vitals signs as noted above General Appearance:Moderately built and nourished, no apparent distress Head: normocephalic, Atraumatic Eyes: normal inspection, EOMI Neck: supple, Trachea midline Respiratory/Chest: Normal breath sounds, CTA, No accessory muscle use Cardiovascular: S1, S2, No murmur Abdomen/GI:Soft, mild tender, Bowel sounds decreased, + laparoscopic scars, + erythema improved Extremities/Musculoskeletal:normal inspection, no edema Neurologic/Psych:AAOX3, grossly no focal neurological deficits Skin: normal color, warm Results & Data Results & Data Vital Signs (Past 12 Hours) Vital Signs Temp Pulse Resp BP Pulse Ox O2 Del Method 09/05/23 14:08 36.4 C L 76 16 121/78 100 Room Air 09/05/23 08:08 Room Air 09/05/23 07:28 36.7 C 80 16 122/78 95 Room Air Laboratory Results Short CBC 09/05/23 Range/Units 06:18 WBC 3.24 L (4.8-10.8) K/ul Hgb 10.8 L (12.0-16.0) g/dl Hct 31.2 L (37.0-47.0) % Plt Count 157 (130-400) K/uL BMP 09/05/23 06:18 Sodium 136 Potassium 3.7 Chloride 103 Carbon Dioxide 27 BUN 7 Creatinine 0.86 Glucose 78 Calcium 8.6
[2023-09-05] MEDS ORDERED: LORazepam 0.5 MG in SYRINGE 0.25 ML IV PRN (16:13)
[2023-09-05] MEDS: traZODone HCL 50 MG TAB PO SCH (19:46)
[2023-09-06] MEDS: HYDROmorphone INJ 1 MG/ML SYRINGE IV PRN ×7 (01:15→21:31)
[2023-09-06] MEDS: PIPERACILLIN/TAZOBACTAM 4.5 GM in DEXTROSE 5% MINI-B 100 ML IV SCH ×3 (03:07→20:04)
[2023-09-06] MEDS: oxyCODONE HCL IR 5 MG TAB (IMMEDIATE RELEASE) PO PRN ×2 (03:10→14:59)
[2023-09-06] MEDS: ENOXAPARIN INJ 40 MG/0.4 ML SYR SQ SCH (04:34)
--- NOTE | 2023-09-06 08:54 | Surgery Progress Note ---
Date of Service September 06, 2023 Assessment & Plan (1) SBO (small bowel obstruction): Plan: POD#5 diagnostic laparoscopy, mini laparotomy and partial small bowel resection pathology returned, this was reviewed and discussed with pt by dr. santos. recommended pt get in touch w/ her oncology team at [facility] (has appt ruthie), maybe can do zoom she continues with abdominal discomfort, bloat and mild nausea. she is passing flatus, but no BM since surgery we will restart her IVF as she is not taking in much orally. will leave her on current diet for now with recommendations to try foods that may help stimulate bowels like prune juice/apple juice, soft fruit, etc wound erythema improving on IV zosyn. wearing an abdominal binder for comfort encourage ongoing ambulation we will continue to follow, awaiting bm prior to dispo pt seen/examined with dr. santos as above. pt with poor appetite, some incisional pain and occ mild nausea. will start IVF as she is not taking much PO intake. will leave her on reg diet but she is going to choose/focus on mostly fluids/softs. discussed her path report. she is quite anxious which I suspect is not helping her pain/nausea. added low dose of Ativan prn. will recheck KUB tomorrow. Admission and Anticipated Discharge Date Admission Date: August 30, 2023 Subjective Patient reports some pain and nausea, mostly with movement. At rest she feels fine. Does not believe it's entirely related to food intake. Required some anti- emetics last evening and some pain meds this AM. She is passing flatus, but no BM thus far. Walking frequently in the halls. Physical Exam Physical Exam: awake/alert Gastrointestinal (Abdomen): Inspection/Auscultation: + abdominal surgical incision (erythema improving, otherwise c/d/i) Percussion/Palpation: + abdomen tender (jorge incisional discomfort, mostly of midline incision) and abdomen soft Results & Data Vital Signs (Past 12 Hours) Vital Signs Temp Pulse BP Pulse Ox O2 Del Method 09/06/23 07:35 36.6 C 76 118/75 97 Room Air PG Care Time/CCT Total # of Minutes Spent Total Time Spent with Patient: Total time spent is greater than 50% in coordination of care (as documented) at patient's floor/unit and/or counseling patient: Coding Level of Care Code 86029 Post Operative Follow-Up Diagnoses SBO (small bowel obstruction) K56.609
[2023-09-06] MEDS: PANTOprazole 40 MG TAB PO SCH ×2 (09:06→20:06)
[2023-09-06] MEDS: LETROZOLE 2.5 MG TAB PO SCH (09:07)
[2023-09-06] MEDS: DOCUSATE SODIUM 100 MG CAP PO SCH ×2 (09:07→20:06)
[2023-09-06] MEDS: D5W AND 1/2NSS + 20MEQ KCL 20 MEQ/1,000 ML BAG IV SCH ×2 (09:12→20:06)
[2023-09-06] MEDS: ONDANSETRON INJ 2 MG/ML 2 ML VIAL IV PRN (10:18)
--- NOTE | 2023-09-06 15:04 | Hospitalist Progress Note ---
Date of Service September 06, 2023 Assessment & Plan (1) SBO (small bowel obstruction): Plan: 52 yr old Female with PMH of hyperlipidemia, left multifocal metastatic breast Cancer stage IIIc s/p bilateral mastectomy with reconstruction and on chemo, CKD stage III and sarcoidosis presents with abdominal pain and found to have recurrent small bowel obstruction. She is being managed for the following: Small bowel obstruction Recurrent S/P Diagnostic Laparoscopy - Release of Small Bowel Obstruction, mini laparotomy with partial resection of small bowel by on 09/01/23 ? Presumed developing wound infection Nausea vomiting resolved Pain control as needed Appreciate surgery input Surgery following Empirically started on IV zosyn and improving Needs follow-up with surgery on discharge Advance to regular diet today Plan to discharge in 1 to 2 days Plan to transition to p.o. antibiotics on discharge Pt has not yet had return of bowel function Path report of small bowel resection: metastatic lobular carcinoma including involvement of peripancreatic lymph nodes and lymph node of calot, recurrent SBO Pt will need f/u with ONC at d/c History of metastatic breast cancer stage IIIc s/p bilateral mastectomies On letrozole and Kisqali. Patient had a EGD which showed gastric ulcers and pathology was consistent with breast primary Heme-onc to continue current medications and follow-up EGD in August 2023 Patient is going to have second opinion with [facility] as per heme-onc notes seems at the end of this month TYRON on CKD stage III Presented with creatinine 1.3 Avoid nephrotoxic agents Cr back to baseline Hyperglycemia HbA1c 5.4 Sarcoidosis Seems currently not under treatment DVT prophylaxis: Lovenox SQ Code Status Full code Pt was seen and examined in collaboration with Dr. Sosa, please see addendum A total of 42 minutes was spent coordinating, documenting, and providing care for this patient excluding time spent in the performance of separately billed services. This included personally viewing all current laboratories and imaging studies, medication reconciliation, outpatient chart review, and discussion with specialists. Admission and Anticipated Discharge Date Admission Date: August 30, 2023 Supervising Physician Co-Signing Physician Notes Patient is seen and examined at bedside. Abdominal pain is controlled. No bowel movement today. Tolerating liquid diet currently. Pathology suggestive of adenocarcinoma. On exam patient is moderately built and nourished, no apparent distress, normocephalic atraumatic, EOMI, normal breath sounds, clear to auscultation, S1-S2, no murmur, no pedal edema, abdomen soft, mild tender,+decreased bowel sounds, +surgical scar, alert, awake, oriented, grossly no focal deficits. Patient is currently being managed for recurrent small bowel obstruction. S/P S/P Diagnostic Laparoscopy - Release of Small Bowel Ob struction, mini laparotomy with partial resection of small bowel by on 09/01/23. Resumed for surgical site infection. Pathology consistent with adenocarcinoma. Liquid diet for now. Surgery following. Continue antibiotics. Needs follow-up with oncology on discharge. I personally reviewed the record. Patient is interviewed and examined at bedside. Patient's care is coordinated with Berkley Hogan PA-C. Please refer to the documentation above for details of patient's presentation and for discussion of other issues. Subjective Patient was seen and examined in room 355 Follow-up small bowel obstruction status post laparoscopy. She has not yet had a bowel movement but did pass some gas. She continues to ambulate. Pathology was reviewed with patient via gen surg. She is scheduled for appt at [facility] tomorrow with oncology. She is hoping she can do virtual. She complains of nausea and bloating, but denies f/c/s, chest pain, sob. Abd binder is helping abd pain. Review of Systems Review of Systems: All systems reviewed & are unremarkable except as noted in HPI & below Physical Exam Physical Exam: Gen: WD/WN, NAD, A&O x3 HEENT: Normocephalic, atraumatic, conjunctivae moist, sclerae anicteric, mucous membranes moist. Lung: Clear to Auscultation bilaterally, no wheezes/rales/rhonchi Heart: Regular rate, regular rhythm, no murmurs, rubs, or gallops Abdomen: +abd binder, soft, NT Extremities: No edema Skin: Warm, no rash, negative turgor. Results & Data Results & Data Vital Signs (Past 12 Hours) Vital Signs Temp Pulse BP Pulse Ox O2 Del Method 09/06/23 11:46 36.8 C 80 123/80 99 Room Air 09/06/23 07:35 36.6 C 76 118/75 97 Room Air Medications Administered Current Inpatient Medications Acetaminophen (Acetaminophen 325 Mg Tab) 650 mg PO Q6H PRN PRN Reason: Pain or Fever Stop: 10/04/23 16:36 Last Admin: 09/05/23 07:44 Dose: 650 mg Diphenhydramine HCl (Diphenhydramine Hcl 25 Mg/10 Ml Udc) 25 mg PO Q6H PRN PRN Reason: Allergy Symptoms Stop: 10/02/23 16:38 Last Admin: 09/04/23 02:05 Dose: 25 mg Docusate Sodium (Docusate Sodium 100 Mg Cap) 100 mg PO BID [facility] Stop: 10/03/23 11:29 Last Admin: 09/06/23 09:07 Dose: 100 mg Enoxaparin Sodium (Enoxaparin Inj 40 Mg/0.4 Ml Syr) 40 mg SQ Q24H [facility] Stop: 09/29/23 05:59 Last Admin: 09/06/23 04:34 Dose: Not Given Hydromorphone HCl (Hydromorphone Inj 1 Mg/Ml Syringe) 1 mg IV Q3H PRN PRN Reason: Severe Pain (Scale 7, 8, 9,10) Stop: 09/15/23 16:31 Last Admin: 09/06/23 13:34 Dose: 1 mg Hydromorphone HCl (Hydromorphone Inj 0.5 Mg/0.5 Ml Syr) 0.5 mg IV Q3H PRN PRN Reason: Mild-Mod Pain (Scale 1-6) Stop: 09/15/23 16:31 Piperacillin Sod/Tazobactam (Sod 4.5 gm/ Dextrose) 100 mls @ 25 mls/hr IV Q8H [facility]; Protocol Stop: 09/11/23 18:59 Last Admin: 09/06/23 11:20 Dose: 25 mls/hr Lorazepam 0.5 mg/ Syringe 0.5 mls @ 2 mls/min IV Q8H PRN PRN Reason: Anxiety/Agitation Stop: 10/05/23 16:12 Potassium Chloride/Dextrose/Sod Cl (D5w And 1/2nss + 20meq Kcl) 20 meq in 1,000 mls @ 80 mls/hr IV .[id number] [facility] Stop: 10/06/23 08:29 Last Admin: 09/06/23 09:12 Dose: 80 mls/hr Letrozole (Letrozole 2.5 Mg Tab) 2.5 mg PO DAILY [facility] Stop: 09/29/23 08:59 Last Admin: 09/06/23 09:07 Dose: 2.5 mg Miscellaneous (Order Awaiting Action: Ribociclib [Kisqali] 400 Mg/Day (200 Mg X 2) Tablet) 1 each N/A QS [facility] Stop: 09/29/23 07:59 Last Admin: 09/06/23 09:06 Dose: Not Given Ondansetron HCl (Ondansetron Inj 2 Mg/Ml 2 Ml Vial) 4 mg IV Q6H PRN PRN Reason: Nausea Stop: 09/29/23 05:35 Last Admin: 09/06/23 10:18 Dose: 4 mg Oxycodone HCl (Oxycodone Hcl Ir 5 Mg Tab (Immediate Release)) 5 mg PO Q4H PRN PRN Reason: Moderate Pain (Scale 4, 5, 6) Stop: 09/15/23 14:12 Last Admin: 09/05/23 09:55 Dose: 5 mg Oxycodone HCl (Oxycodone Hcl Ir 5 Mg Tab (Immediate Release)) 10 mg PO Q4H PRN PRN Reason: Severe Pain (Scale 7, 8, 9,10) Stop: 09/15/23 14:12 Last Admin: 09/06/23 14:59 Dose: 10 mg Pantoprazole Sodium (Pantoprazole 40 Mg Tab) 40 mg PO BID [facility] Stop: 09/29/23 08:59 Last Admin: 09/06/23 09:06 Dose: 40 mg Simethicone (Simethicone 80 Mg Chew) 80 mg PO Q6H PRN PRN Reason: Flatulence Stop: 10/05/23 13:07 Last Admin: 09/05/23 14:36 Dose: 80 mg Trazodone HCl (Trazodone Hcl 50 Mg Tab) 50 mg PO HS [facility] Stop: 09/29/23 20:59 Last Admin: 09/05/23 19:46 Dose: 50 mg Zinc Acetate/Diphenhydramine (Diphenhydramine 2%/Zinc 0.1% Cream 28.4gm Tube) 1 appln EXT QID PRN PRN Reason: itchy skin Stop: 10/02/23 21:12
[2023-09-06] MEDS: traZODone HCL 50 MG TAB PO SCH (20:05)
[2023-09-07] MEDS: HYDROmorphone INJ 1 MG/ML SYRINGE IV PRN (01:42)
[2023-09-07] MEDS: PIPERACILLIN/TAZOBACTAM 4.5 GM in DEXTROSE 5% MINI-B 100 ML IV SCH (01:42)
[2023-09-07] MEDS: ENOXAPARIN INJ 40 MG/0.4 ML SYR SQ SCH (04:00)
[2023-09-07 07:51] LABS: BUN Creatinine Ratio 2.4 (10-20); Calcium 8.9 mg/dl (8.6-10.3); Creatinine Clr Calc Pharmacy 85.3 ml/min; Est GFR (African American) 96.7 ml/min; Est GFR (Non-African American) 83.4 ml/min; Potassium 3.9 mmol/L (3.5-5.1)
[2023-09-07 07:58] VITALS: BP 120/87; RESP 17; TEMP 97.7; O2SAT 99
--- NOTE | 2023-09-07 08:36 | Surgery Progress Note ---
Date of Service September 07, 2023 Assessment & Plan (1) SBO (small bowel obstruction): Plan: POD#6 diagnostic laparoscopy, mini laparotomy and partial small bowel resection -Patient with a couple loose BM's documented. Continues to pass gas -Midline wound was opened a small amount yesterday at bedside due to increasing pain and firmness in the area. Small amount of dark fluid drained. Recommend daily wound care with dry gauze and medipore tape overtop, if possible may place a small wick/corner of gauze as packing in wound until heals -From our standpoint as she is tolerating a diet and having + bowel function she may be discharged -Recommend f/u in the office with us within 1 weeks time. A course of PO abx and PO pain meds have been sent to her pharmacy -She has rescheduled her onc appt for mid/late october As above. doing well. ok from my standpoint for d/c. f/u with me in 1 week Admission and Anticipated Discharge Date Admission Date: August 30, 2023 Subjective Patient had a couple loose stools since yesterday. Tolerating small amounts of diet. No nausea/vomiting. Reports pain in abdomen and upper incision, but this is improved after opening it up a bit. Physical Exam Physical Exam: awake/alert Gastrointestinal (Abdomen): Inspection/Auscultation: + abdominal surgical incision (dressing intact); abdomen not distended Percussion/Palpation: + abdomen tender (jorge incisional discomfort, mostly of midline incision) and abdomen soft Results & Data Vital Signs (Past 12 Hours) Vital Signs Temp Pulse Resp BP Pulse Ox O2 Del Method 09/07/23 07:50 36.5 C 84 17 120/87 99 Room Air PG Care Time/CCT Total # of Minutes Spent Total Time Spent with Patient: Total time spent is greater than 50% in coordination of care (as documented) at patient's floor/unit and/or counseling patient: Coding Level of Care Code 97282 Post Operative Follow-Up Diagnoses SBO (small bowel obstruction) K56.609
[2023-09-07] MEDS: LETROZOLE 2.5 MG TAB PO SCH (09:04)
[2023-09-07] MEDS: DOCUSATE SODIUM 100 MG CAP PO SCH (09:05)
[2023-09-07 09:06] LABS: Appearance Urine Clear (Clear); Bilirubin Urine Negative (Negative); Blood Urine Negative (Negative); Color Urine Yellow; Glucose Urine UA Negative (Negative); Ketones Urine Negative (Negative); Leukocyte Esterase Urine Negative (Negative); Nitrite Urine Negative (Negative); Protein Urine Negative (Negative); Specific Gravity Urine 1.013 (1.000-1.030); Urobilinogen Urine Negative (Negative)
[2023-09-07] MEDS: PANTOprazole 40 MG TAB PO SCH (09:06)
[2023-09-07] MEDS ORDERED: FLUCONAZOLE 50 MG TAB PO ONE (09:36)
[2023-09-07] MEDS ORDERED: ADVANCED PROBIOTIC 1250 MG CAPSULE PO SCH (09:45)
[2023-09-07] MEDS: D5W AND 1/2NSS + 20MEQ KCL 20 MEQ/1,000 ML BAG IV SCH (09:54)
[2023-09-07] MEDS: oxyCODONE HCL IR 5 MG TAB (IMMEDIATE RELEASE) PO PRN (10:35)
--- NOTE | 2023-09-07 10:59 | Discharge Summary ---
Discharge Summary Date of Service September 07, 2023 Notes For Next Care Provider Patient hospitalized for recurrence of small bowel obstruction. Seen and evaluated by general surgery and underwent diagnostic laparoscopy with mini laparotomy and small bowel resection. Pathology report from small bowel resection reported consistent with metastatic lobular carcinoma. Patient will need very close outpatient follow-up with oncologist, Dr. Infante. She is interested in second opinion at [facility]. She missed her appointment due to being hospitalized and her next available appointment is now in October. Would like to get this appointment expedited if possible. Recommend follow-up on how bowels are moving. Upon discharge her bowel habits were loose and therefore her Colace and MiraLAX had been placed on hold. Medication Changes From Visit Augmentin 875 mg 1 tablet twice daily for an additional 10 days. Recommend taking daily probiotic for duration of antibiotic therapy. This prescription will be sent to your pharmacy. You are prescribed fluconazole 150 mg for yeast infection. If your yeast infection symptoms have not improved within 72 hours take additional dose on, 09/10/2023. Percocet 5mg-325mg every 6 hours as needed for severe pain. This medication also contains Tylenol. Do not consume more than 3g of Tylenol daily. Please hold your stool softeners Colace and MiraLAX due to having loose stool. Please discuss with your general surgeon when to resume these medications. Admission HPI Per Admitting Provider 52 yr old Female with PMH of hyperlipidemia, left multifocal metastatic breast Cancer stage IIIc s/p bilateral mastectomy with reconstruction and on chemo, CKD stage III and sarcoidosis presents with abdominal pain and found to have recurrent small bowel obstruction. Patient was recently in the hospital for small bowel obstruction improved with conservative management. She had a small bowel follow-through which did not show any obstruction last admission. Seems also advised to not continue stool softeners. But she developed constipation. Followed-up with PCP and she started back on MiraLAX. And then she had diarrhea for 3 days until last Tuesday. Then she stopped stool softeners. Did not had bowel movement since Tuesday. But she is passing gas. Tonight again developed severe abdominal pain associated with nausea and vomitings. Which prompted her come to the ER. Second vomitus contained only bile. Currently with pain medication pain is improved. Denies any chest pain or shortness of breath. No cough. No fevers. Micturating okay. Denies any headache. No blurred visions. No earache or runny nose or sore throat. Hemodynamically stable. Past medical history. As mentioned above Past surgical history. Periprosthetic capsulectomy of the breast, breast reconstruction of bilateral breast, bronchoscopy, colonoscopy, dilatation curettage, EGD, EGD with endoscopic ultrasound, ERCP, exploratory laparotomy, laparoscopic cholecystectomy, laparoscopic oophorectomy, right mastectomy with right axillary lymph node dissection and prophylactic mastectomy, left ankle surgery, total abdominal hysterectomy with removal of tubes salpingo- oophorectomy. Social history. . No smoking. Alcohol occasional. No drug use. Family history. Mother had Alzheimer's disease and hypertension. Maternal grandmother had skin cancer. Sister had cancer. Aunt has colon cancer. Admission Exam Per Admitting Provider Physical Exam: General-Not in distress Head- atraumatic Eyes- PERRL. ENT- oropharynx clear Neck- supple, no JVD. Lungs- clear to auscultation no wheezing or crackles. Heart- regular rate and rhythm; no murmur, no gallop. Abdomen- normal bowel sounds, soft, nontender, no distension Extremities- no pretibial edema, no erythema seen. Neuro- alert, oriented x 3; PERRL, no facial palsy; no dysarthria; moves extremities. Skin- warm & dry Principal Dx & Hospital Course #1 = Principal Diagnosis (1) SBO (small bowel obstruction): 52 yr old Female with PMH of hyperlipidemia, left multifocal metastatic breast Cancer stage IIIc s/p bilateral mastectomy with reconstruction and on chemo, CKD stage III and sarcoidosis presents with abdominal pain and found to have recurrent small bowel obstruction. She is being managed for the following: Small bowel obstruction Recurrent S/P Diagnostic Laparoscopy - Release of Small Bowel Obstruction, mini laparotomy with partial resection of small bowel by on 09/01/23 ? Presumed developing wound infection Nausea vomiting resolved Pain control as needed Appreciate surgery input Surgery following Empirically started on IV zosyn and improving Will f/u with General surgery in 1 week She is now passing flatus and moving bowels General surgery cleared for discharge Will d/c on Oral Augmentin for additional 10 days per surg Path report of small bowel resection: metastatic lobular carcinoma, this was communicated to primary oncologist Dr. Infante to arrange follow up History of metastatic breast cancer stage IIIc s/p bilateral mastectomies On letrozole and Kisqali. Patient had a EGD which showed gastric ulcers and pathology was consistent with breast primary SB resection also consistent with metastatic lobular carcinoma Heme-onc to continue current medications and follow-up EGD in Sep 2023 Patient is going to have second opinion with [facility] that was scheduled for today and now will not be able to see until October TYRON on CKD stage III Presented with creatinine 1.3 Avoid nephrotoxic agents Cr back to baseline Hyperglycemia HbA1c 5.4 Sarcoidosis Seems currently not under treatment chronic, stable DVT prophylaxis: Lovenox SQ Code Status Full code Pt was seen and examined in collaboration with Dr. Sosa, please see addendum A total of 52 minutes was spent coordinating, documenting, and providing care for this patient excluding time spent in the performance of separately billed services. This included personally viewing all current laboratories and imaging studies, medication reconciliation, outpatient chart review, and discussion with specialists. Discharge Exam Gen: WD/WN, NAD, A&O x3 HEENT: Normocephalic, atraumatic, conjunctivae moist, sclerae anicteric, mucous membranes moist. Lung: Clear to Auscultation bilaterally, no wheezes/rales/rhonchi Heart: Regular rate, regular rhythm, no murmurs, rubs, or gallops Abdomen: +abd dressing, CDI, soft, NT Extremities: No edema Skin: Warm, no rash, negative turgor. Updated Medication List Medication Instructions Recorded Confirmed Type letrozole 2.5 mg tablet 2.5 mg PO DAILY 07/03/23 08/30/23 History omeprazole 20 mg tablet,delayed 20 mg PO BID 07/03/23 08/30/23 History release ribociclib 400 mg/day (200 mg x 2) 400 mg PO DAILY 07/03/23 08/30/23 History tablets (Kisqali) trazodone 50 mg tablet 50 mg PO HS 07/03/23 08/30/23 History polyethylene glycol 3350 17 gram 17 g PO DAILY #30 ea 07/05/23 08/30/23 Rx oral powder packet (Miralax) docusate sodium 100 mg capsule 200 mg PO BID 08/12/23 08/30/23 History (Colace) oxycodone-acetaminophen 5 mg-325 1 - 2 tab PO .q4-6h PRN pain, for 09/02/23 Rx mg tablet (Percocet) initial therapy, max 6 tabs per day #15 tabs amoxicillin 875 mg-potassium 1 tab PO BID 10 days #20 tabs 09/05/23 Rx clavulanate 125 mg tablet L.acidop,casei,lactis,rham-B.lact,refugio 2 cap PO DAILY 10 days #20 caps 09/07/23 Rx 625 mg (10 billion cell) capsule (Advanced Probiotic) fluconazole 150 mg tablet 150 mg PO Q3D 1 dose #1 tab 09/07/23 Rx Hospital Stay Data Consultations 08/30/23 02:48 ED Decision to Admit Stat 08/30/23 03:01 Consult General Surgery Stat Procedures Performed Operation Date: 09/01/23 13:05 Actual Procedures p Diagnostic Laparoscopy - Release of Small Bowel Obstruction, (Not Applicable) - Derek Teresa DO s mini laparotomy with partial resection of small bowel(Not Applicable) - Derek Teresa DO Diagnostic Imagining Performed KUB X-Ray 08/30/23 00:11 KUB CLINICAL HISTORY: Nausea and vomiting. History of small bowel obstruction. COMPARISON STUDY: CT of the abdomen and pelvis August 12, 2023. KUB August 13, 2023. FINDINGS: There are cholecystectomy clips. Multiple dilated loops of small bowel measure up to 3.9 cm in caliber. No evidence for free air on supine exam. No radiographic evidence for pneumatosis or portal venous gas. IMPRESSION: Findings consistent with a small bowel obstruction. ACT 112: Negative or not required by law. Electronically signed by: Neil Lemus M.D. 08/30/2023 6:40 AM Abdomen/Pelvis CT 08/30/23 01:02 Exam(s): CT ABDOMEN + PELVIS Without Contrast EXAM: CT Abdomen and Pelvis Without Intravenous Contrast CLINICAL HISTORY: n/v, hx sbo. TECHNIQUE: Axial computed tomography images of the abdomen and pelvis without intravenous contrast. CTDI is 22 mGy and DLP is 1056.42 mGy-cm. Automated exposure control was utilized for the study. A dose lowering technique was utilized adhering to the principles of ALARA. COMPARISON: CT abdomen and pelvis with contrast dated 08/12/2023; small bowel follow- through 08/15/2023 FINDINGS: Lung bases: Unremarkable. No mass. No consolidation. ABDOMEN: Liver: Unremarkable. Gallbladder and bile ducts: Cholecystectomy. No ductal dilation. Pancreas: Unremarkable. No ductal dilation. Spleen: Unremarkable. No splenomegaly. Adrenals: Unremarkable. No mass. Kidneys and ureters: Unremarkable. No obstructing stones. No hydronephrosis. Stomach and bowel: Diffuse fluid and gas distention of the small bowel throughout the abdomen and pelvis is noted with the small bowel measuring up to 3.5 cm in diameter. The transition point is suggested in the right lateral mid to inferior abdomen with asymmetric decompression of the distal small bowel loops in the right lower quadrant, similar in location to the prior examination. PELVIS: Appendix: No findings to suggest acute appendicitis. Bladder: Unremarkable. No stones. Reproductive: Unremarkable as visualized. ABDOMEN and PELVIS: Intraperitoneal space: Mild free fluid in the abdomen and pelvis, similar to slightly decreased from the previous examination. No loculation. No free air. Bones/joints: No acute fracture. No dislocation. Soft tissues: Similar mesenteric edema and fat stranding. Vasculature: Unremarkable. No abdominal aortic aneurysm. Lymph nodes: Unremarkable. No enlarged lymph nodes. IMPRESSION: 1. Diffuse fluid and gas distention of the small bowel throughout the abdomen and pelvis is noted with the small bowel measuring up to 3.5 cm in diameter. The transition point is suggested in the right lateral mid to inferior abdomen with asymmetric decompression of the distal small bowel loops in the right lower quadrant, similar in location to the prior examination. Findings are suspicious for recurrent at least partial mid to distal right small bowel obstruction. No pneumatosis or pneumoperitoneum. 2. Mild free fluid in the abdomen and pelvis, similar to slightly decreased from the previous examination. No loculation. Electronically signed by: Derek Marrero MD 08/30/23 02:07 AM KUB X-Ray 08/30/23 12:41 KUB CLINICAL HISTORY: Small bowel obstruction. COMPARISON STUDY: KUB and CT of the abdomen and pelvis August 30, 2023. FINDINGS: There are cholecystectomy clips. No evidence for free air on supine exam. A few loops of mildly dilated small bowel are present. Small bowel dilatation has improved. There is no radiographic evidence for pneumatosis or portal venous gas. IMPRESSION: Mild small bowel dilatation, improved since prior exam. The find ings favor an improving small bowel obstruction. ACT 112: Negative or not required by law. Electronically signed by: Neil Lemus M.D. 08/30/2023 1:53 PM KUB X-Ray 08/31/23 07:29 KUB HISTORY: Acute generalized abdominal pain was reported obstruction sbo COMPARISON: 08/30/2023 FINDINGS: Cholecystectomy. Moderate colonic fecal retention. There is resolution of the previously noted small bowel distention. Renal shadows are obscured by bowel gas. No renal calculi. No ureteral calculi. No pneumoperitoneum or pneumatosis. No fracture. IMPRESSION: Resolution of the previously noted small bowel distention suggestive of a resolved versus resolving small bowel obstruction. ACT 112: Negative or not required by law. The above report was generated using voice recognition software. It may contain grammatical, syntax or spelling errors. Electronically signed by: Anoop Dominguez M.D. 08/31/2023 10:32 AM KUB X-Ray 09/05/23 08:29 KUB HISTORY: Small bowel obstruction. Follow-up. COMPARISON: KUB 08/31/2023. FINDINGS: Prior cholecystectomy. A few borderline dilated gas-filled loops of small bowel within the abdomen. These have slightly progressed in the interval. No renal calculi. No ureteral calculi. No pneumoperitoneum or pneumatosis. Moderate fecal retention again noted. This is similar to the prior study. IMPRESSION: A few borderline dilated gas-filled loops of small bowel within the abdomen which have slightly progressed in the interval. This could represent a developing partial small bowel obstruction versus ileus. Continued follow-up recommended. ACT 112: Negative or not required by law. Electronically signed by: Renny Sánchez M.D. 09/05/2023 10:23 AM SB resection pathology: FINAL DIAGNOSIS Small intestine, resection: - Adenocarcinoma consistent with history of metastatic lobular carcinoma. - See comment. Comment: The specimen shows relatively diffuse involvement by a poorly differentiated adenocarcinoma consistent with this patient's history of metastatic lobular breast carcinoma. Paraffin block #1 would be appropriate if any ancillary testing is required Peritoneal fluid (cytologic analysis): - Many reactive mesothelial cells, lymphocytes and a few histiocytes are all seen. - No tumor seen. - The clinical history of small bowel obstruction is noted. - Please see microscopic description. Screened by on at . at 1203. Clinical History Small bowel obstruction Tissues A. Peritoneal Fluid Cyto.NG Gross Description 20 cc HAZY YELLOW FLUID, 1 DIFF QUIK SLIDE, 1 THIN PREP SLIDE, 1 CELL BLOCK Microscopic Description This peritoneal fluid is prepared as a Diff Quik stained direct smear, a Papanicolaou stained ThinPrep and a cell block. The Diff Quik stained direct smear reveals many reactive mesothelial cells. Lymphocytes are also seen. The Papanicolaou stained ThinPrep also reveals reactive mesothelial cells and lymphocytes. A two-cell epithelial population is not seen. The cell block reveals sheets of reactive mesothelial cells, lymphocytes and scattered histiocytes. A significant acute inflammatory infiltrate is not seen. Malignant cells are not seen. Current Procedural Terminology [id number] Non-Gynecological Pathology Report Page 1 of 1 Pending Results Patient Have Any Pending Studies at Discharge: No Discharge Instructions Given to Patient (Per Discharging Provider) MEDICATION CHANGES: Augmentin 875 mg 1 tablet twice daily for an additional 10 days. Recommend taking daily probiotic for duration of antibiotic therapy. This prescription will be sent to your pharmacy. You are prescribed fluconazole 150 mg for yeast infection. If your yeast infection symptoms have not improved within 72 hours take additional dose on, 09/10/2023. Percocet 5mg-325mg every 6 hours as needed for severe pain. This medication also contains Tylenol. Do not consume more than 3g of Tylenol daily. Please hold your stool softeners Colace and MiraLAX due to having loose stool. Please discuss with your general surgeon when to resume these medications. SUMMARY OF TEST RESULTS: You underwent diagnostic laparoscopy for small bowel obstruction and partial small bowel resection. Pathology report resulted in adenocarcinoma consistent with history of breast cancer. PENDING TEST RESULTS: none RECOMMENDATIONS FOR FOLLOW-UP: Please follow-up with your primary care provider as scheduled. Please complete antibiotics in their entirety. Monitor incision/wound for increasing erythema, warmth or drainage. Please follow-up with oncology regarding results of small bowel resection. I did message your oncologist Dr. Infante to make him aware. Continue all medications as prescribed. If you are still experiencing vaginal yeast symptoms despite taking fluconazole please follow up with your Primary Care Provider. You have surgical glue called dermabond on your surgical site incisions. You may shower with this on. This will tend to come off within a couple of weeks. Do not pick at it. Cover the midline incision with dry 4x4 gauze and medipore tape. If you are able to, you may place a corner of the gauze lightly packed in the incision until the wound heals up. Change this dressing daily and as needed until wound heals. OTHER INSTRUCTIONS: Seek medical attention if you have: * temperature above 101 * chest pain or trouble breathing * abdominal pain, nausea, vomiting * diarrhea, dark stools or bloody stools * any unanswered questions or concerns Call 911 if symptoms are severe. Please take good care of yourself. It has been a pleasure taking care of you. Please take care of yourself. If you have any questions regarding your recent hospitalization please contact [facility] and request Ash Lopez @ [phone]. Berkley Hogan PA-C Total Time Total Time Spent Total Time Spent (In Minutes): 52 minutes Supervising Physician Co-Signing Physician Notes Patient is seen and examined at bedside on day of discharge. Patient states having bowel movements yesterday. Tolerating current diet. Denies any nausea, vomiting. Abdominal pain much improved. Discussed with surgery today. On exam patient is moderately built and nourished, no apparent distress, normocephalic atraumatic, EOMI, normal breath sounds, clear to auscultation, S1-S2, no murmur, no pedal edema, abdomen soft, mild tender,+decreased bowel sounds, +surgical scar, alert, awake, oriented, grossly no focal deficits. Patient is currently being managed for recurrent small bowel obstruction. S/P S/P Diagnostic [place] roscopy - Release of Small Bowel Obstruction, mini laparotomy with partial resection of small bowel by on 09/01/23. Presumed for surgical site infection. Pathology consistent with adenocarcinoma. Advance diet as tolerated. Surgery following. Continue antibiotics. Needs follow-up with oncology, surgery on discharge. I personally reviewed the record. Patient is interviewed and examined at bedside. Patient's care is coordinated with Berkley Hogan PA-C. Please refer to the documentation above for details of patient's presentation and for discussion of other issues.
[2023-09-07 11:06] VITALS: PULSE 79
== END 2023-09-07 11:52 | disposition home or self-care (01) | DRG 330 ==
LOC: ED 23:55 → 3W 08-30 03:37 → SUATTDRO 08-30 03:37 → 3W 08-30 05:33
DX: N17.9 Acute kidney failure, unspecified; K56.690 Other partial intestinal obstruction; C78.89 Secondary malignant neoplasm of other digestive organs; N18.30 Chronic kidney disease, stage 3 unspecified; Z17.0 Estrogen receptor positive status [ER+]; C77.2 Secondary and unspecified malignant neoplasm of intra-abdominal lymph nodes; E86.0 Dehydration; E78.5 Hyperlipidemia, unspecified; Y83.8 Other surgical procedures as the cause of abnormal reaction of the patient, or of later complication, without mention of misadventure at the time of the procedure; Y92.230 Patient room in hospital as the place of occurrence of the external cause; D86.9 Sarcoidosis, unspecified; T81.49XA Infection following a procedure, other surgical site, initial encounter; C50.912 Malignant neoplasm of unspecified site of left female breast

== ENCOUNTER 2024-02-18 00:10 | Observation (INO) ==
--- NOTE | 2024-02-18 00:32 | Emergency Department Note ---
Impression & Plan Abdominal pain, Breast cancer metastasized to multiple sites, History of small bowel obstruction ED Provider Note CHIEF COMPLAINT: Abdominal pain HISTORY OF PRESENTING ILLNESS: This 53-year-old female patient presents to the emergency department for evaluation of abdominal pain and nausea. Symptoms started tonight after dinner. The patient has a history of breast cancer that metastasized to the small bowel and stomach. She also has a history of 4 small bowel obstructions with her last SBO in Aug 2023 when she was admitted and had surgical intervention by Dr. Teresa. She states that it feels like her previous SBOs, but she has not had vomiting yet. Only nausea. She has had loose stools since starting her new medications and her last BM was this morning. She rates her discomfort as 8/10. She is currently on Truqap and Faslodex for her treatment. She finished chemo and radiation in 2011 or 2013 per patient. She denies any urinary symptoms. She denies chest pain or SOB. She denies fevers. She is not on any blood thinners. REVIEW OF SYSTEMS: See HPI for pertinent positives and pertinent negatives. ALLERGIES: NKDA MEDICATIONS: See below PAST MEDICAL HISTORY: See below PHYSICAL EXAM: VITALS: Vitals are noted on the nurse's note and reviewed by myself. GENERAL: Non toxic, no acute distress, non-diaphoretic. SKIN: Capillary refill <2 sec. EYES: PERRLA. EOMI. Conjunctivae without injection, sclerae without icterus. NOSE: Patent without discharge. MOUTH: Mucous membranes moist. Uvula midline. Airway patent. NECK: Supple without nuchal rigidity. HEART: Regular rate and rhythm without murmurs gallops or rubs. LUNGS: Clear to auscultation bilaterally without wheezes, rales or rhonchi. No retractions or accessory muscle use. ABDOMEN: Positive bowel sounds x 4. Normal tympanic percussion. Soft, diffusely tender to palpation, but worse centrally. No masses or organomegaly. Szymanski sign negative. No guarding or rebound tenderness. No focal RLQ or LLQ tenderness. MUSCULOSKELETAL: No gross musculoskeletal defects. NEURO: Patient was alert and oriented. No focal neurological deficits. DIFFERENTIAL DIAGNOSIS: Differential diagnosis includes hepatitis, pancreatitis, cholecystitis, cholelithiasis, appendicitis, kidney stone, pyelonephritis, UTI, gastritis, gastroenteritis, mesenteric adenitis, obstruction, constipation, hernia, abdominal abscess, perforation, diverticulitis, IBD, ischemic colitis, abdominal aortic aneurysm, , ectopic , ovarian cyst, ovarian torsion, acute salpingitis, or others. ED COURSE AND MEDICAL DECISION MAKING: MONITOR: Continuous steam box hand: Order was placed for continuous steam box hand. Patient was placed on the steam box hand and continuous pulse ox. Patient was noted to be in normal sinus rhythm at an initial rate of 80 bpm per my interpretation. EKG: EKG was interpreted by myself as sinus rhythm at 70 bpm with no acute ST or T wave changes. MEDICATIONS GIVEN: 500 mL normal saline solution bolus. Tylenol 1000 mg IV. Zofran 4 mg IV x 2. Morphine 4 mg IV x 2. INTERPRETATION OF LABS: I interpreted the labs with full lab results as below in the lab section of this note. CBC without leukocytosis, anemia, or thrombocytopenia. PT/INR normal. Potassium 3.3, creatinine 1.34, but CMP otherwise normal. Lipase normal. High-sensitivity troponin normal. Urinalysis with 2+ leukocytes and 21-50 white blood cells. Urine culture is pending. INTERPRETATION OF IMAGING: CT scan of the abdomen and pelvis with IV contrast was interpreted by myself and Dr. Horton and shows air-fluid levels concerning for small bowel obstruction. There are also what appear to be changes secondary to her cancer, but specifics unable to be determined by our interpretation. Due to a significant delay in STAT RAD, radiology report still pending. EXTERNAL RECORDS REVIEWED: I reviewed the patient's past medical records including her admission in August for small bowel obstruction. CONSULTATIONS: On-call hospitalist MDM SUMMARY: I examined the patient. The patient presents to the emergency department for evaluation of abdominal pain that feels similar to her previous episodes of small bowel obstruction. An IV lock was placed and labs were drawn. The patient was medicated as above with some improvement of her symptoms. Laboratory studies as above. Urinalysis with possible UTI, but the patient denies any urinary symptoms. No antibiotics given in the ER since she was asymptomatic. Urine culture is pending. CT scan of the abdomen and pelvis with IV contrast was interpreted by myself and Dr. Horton and shows air-fluid levels concerning for small bowel obstruction. There are also changes due to her cancer, but we are unable to determine specifics on our interpretation. Due to a significant delay in STAT RAD reading the CT scan, the radiology report still pending. This case was discussed with Dr. Horton who agrees with the above findings and the following plan. Due to the concern for small bowel obstruction with continued abdominal pain along with the patient's history, the patient will be admitted at this time. The patient is not vomiting and NG tube was held at this time. I spoke with the on-call hospitalist who agreed to admit the patient for further evaluation and treatment pending results of the CT scan. Please refer to their dictation for further details. The patient's care was transferred in stable condition. DIAGNOSIS: Abdominal pain - concern for SBO Past Med/Surg History Problem List (Updated 02/18/24 @ 16:30 by Danitza Dubon PA-C) History of small bowel obstruction (Acute) Malignant ascites Breast cancer metastasized to multiple sites (Acute) Malignant pleural effusion Peritoneal carcinomatosis Abdominal pain (Acute) Hx of abdominal surgery (09/01/23) Diagnostic Laparoscopy - Release of Small Bowel Obstruction, mini laparotomy with partial resection of small bowel(Not Applicable) - Derek Teresa DO Hydronephrosis SBO (small bowel obstruction) (Acute) Bile duct calculus (Acute) Encounter for pre-operative examination DVT prophylaxis Lymph node enlargement Acute cholecystitis (Acute) Sarcoidosis Surgical History (Updated 10/10/23 @ 08:57 by Derek Teresa DO) Hx laparoscopic cholecystectomy (10/02/19) Laparoscopic Cholecystectomy with Cholangiogram Dr. Vargas 10/02/19 History of D&C History of esophagogastroduodenoscopy (EGD) 11/2018 dx gastritis History of bronchoscopy History of oophorectomy History of bilateral mastectomy 04/21/2012 Right mastectomy with right axillary lymph node dissectiona nd left prophylactic mastectomy 04/21/12 Dr. Carbajal at [facility] Family History Father Alive and well Mother Alzheimer disease Denies family history of Heart disease Breast cancer Social History Smoking Status: Never smoker Do You Dip or Chew Tobacco: No; Hx Alcohol Use: No Hx Substance Use: No Preferred Language: Czech Communication Ability: Effective Visual Impairment: No Limitations Medical Office Secretary Required: No Beliefs That Will Affect Care: None marital status: Current Living Situation: Spouse Feels Safe at Home: Yes Safety Concerns: Feels Safe At This Time Assistive Devices: Glasses Allergies Allergies Allergy/AdvReac Type Severity Reaction Status Date / Time No Known Allergies Allergy Verified 02/18/24 01:10 Home Meds Home Medications Medication Instructions Recorded Confirmed trazodone 50 mg tablet 50 mg PO HS 07/03/23 02/18/24 capivasertib 200 mg tablet (Truqap) 200 mg PO DIRECTED 02/18/24 02/18/24 cetirizine 10 mg tablet (Zyrtec) 10 mg PO DAILY PRN NEEDED PER PT 02/18/24 02/18/24 fulvestrant 250 mg/5 mL 0 mg IM MONTHLY 02/18/24 02/18/24 intramuscular syringe loperamide 2 mg capsule 2 mg PO DIRECTED PRN Diarrhea 02/18/24 02/18/24 ondansetron HCl 8 mg tablet 8 mg PO TID PRN NAUSEA/VOMITING 02/18/24 02/18/24 Results & Data (ED) Vital Signs Vital Signs - 24 hr 02/18/24 00:13 02/18/24 00:18 02/18/24 00:18 Temperature 36.6 C Temperature Source Temporal Artery Scan Pulse Rate 77 Pulse Rate [Finger] 67 Pulse Rhythm [Finger] Regular Pulse Strength [Finger] Normal Respiratory Rate 20 19 Respiratory Effort / Characteristics Non-Labored Spontaneous Non-Labored Spontaneous Respiratory Depth Normal Normal Respiratory Pattern Regular Blood Pressure 138/90 Blood Pressure [Left Arm] 131/78 Blood Pressure Mean 106 Blood Pressure Mean [Left Arm] 95 Pulse Oximetry 96 97 98 Oxygen Delivery Method Room Air Room Air Room Air Sepsis Recent Fever Within 48 Hours No Sepsis New/Unexplained Change in Mental Status N/A Sepsis Action Taken by Nursing No Action Required 02/18/24 00:30 02/18/24 01:00 02/18/24 01:00 Temperature Temperature Source Pulse Rate 90 64 Pulse Rate [Finger] Pulse Rhythm [Finger] Pulse Strength [Finger] Respiratory Rate 21 Respiratory Effort / Characteristics Respiratory Depth Respiratory Pattern Blood Pressure 139/86 139/86 Blood Pressure [Left Arm] Blood Pressure Mean 90 90 Blood Pressure Mean [Left Arm] Pulse Oximetry 93 Oxygen Delivery Method Sepsis Recent Fever Within 48 Hours Sepsis New/Unexplained Change in Mental Status Sepsis Action Taken by Nursing 02/18/24 02:01 Temperature Temperature Source Pulse Rate 60 Pulse Rate [Finger] Pulse Rhythm [Finger] Pulse Strength [Finger] Respiratory Rate Respiratory Effort / Characteristics Respiratory Depth Respiratory Pattern Blood Pressure 130/86 Blood Pressure [Left Arm] Blood Pressure Mean 90 Blood Pressure Mean [Left Arm] Pulse Oximetry 97 Oxygen Delivery Method Sepsis Recent Fever Within 48 Hours Sepsis New/Unexplained Change in Mental Status Sepsis Action Taken by Nursing Laboratory Data 02/18/24 00:30 02/18/24 08:27 Lab Results 02/18/24 02/18/24 Range/Units 00:30 00:58 WBC 4.81 (4.8-10.8) K/ul RBC 4.65 (4.20-5.40) M/uL Hgb 13.9 (12.0-16.0) g/dl Hct 42.1 (37.0-47.0) % MCV 90.5 (80.0-100.0) fL MCH 29.9 (25.0-34.0) pg MCHC 33.0 (32.0-36.0) g/dL RDW Std Deviation 42.0 (36.4-46.3) fL RDW Coeff of Salvatore 12.7 (11.5-14.5) % Plt Count 260 (130-400) K/uL MPV 10.1 (9.4-12.4) fL Immature Gran % (Auto) 0.2 % Neut % (Auto) 62.4 % Lymph % (Auto) 22.5 % Kane % (Auto) 8.5 % Eos % (Auto) 5.2 % Baso % (Auto) 1.2 % Neut # (Auto) 3.00 (1.40-6.50) K/uL Lymph # (Auto) 1.08 L (1.20-3.40) K/uL Kane # (Auto) 0.41 (0.11-0.59) K/uL Eos # (Auto) 0.25 (0.00-0.50) K/uL Baso # (Auto) 0.06 (0.00-0.20) K/uL Immature Gran # (Auto) 0.01 (0.01-0.20) K/uL PT 10.4 (9.0-12.0) Seconds INR 1.0 (0.9-1.1) Sodium 137 (136-145) mmol/L Potassium 3.3 L (3.5-5.1) mmol/L Chloride 106 (98-107) mmol/L Carbon Dioxide 23 (21-32) mmol/L Anion Gap 8 (3-11) BUN 23 (6-23) mg/dl Creatinine 1.34 H (0.6-1.2) mg/dl Est Cr Clr Drug Dosing 46.5 ml/min Est GFR ( Amer) 53.0 ml/min Est GFR (Non-Af Amer) 45.8 ml/min BUN/Creatinine Ratio 17.2 (10-20) Glucose 92 (70-99(Fasting)) mg/dl Lactate 0.5 (0.4-2.0) mmol/L Calcium 9.3 (8.6-10.3) mg/dl Magnesium 2.0 (1.7-2.4) mg/dl Total Bilirubin 0.2 (0.2-1.0) mg/dl AST 24 (13-39) U/L ALT 19 (7-52) U/L Alkaline Phosphatase 46 (34-104) U/L Troponin I High Sens 3.7 (0-14) pg/ml Total Protein 7.0 (6.0-8.3) gm/dl Albumin 4.3 (3.4-5.0) gm/dl Globulin 2.7 (2.5-4.0) gm/dl Albumin/Globulin Ratio 1.6 (0.9-2) Lipase 46 (11-82) U/L Urine Color Yellow Urine Appearance Clear (Clear) Urine pH 5.0 (4.5-7.5) Ur Specific [place] 1.019 (1.000-1.030) Urine Protein Negative (Negative) Urine Glucose (UA) Negative (Negative) Urine Ketones Negative (Negative) Urine Blood Negative (Negative) Urine Nitrite Negative (Negative) Urine Bilirubin Negative (Negative) Urine Urobilinogen Negative (Negative) Ur Leukocyte Esterase 2+ H (Negative) Urine WBC (Auto) 21-50 H (0-5) /hpf Urine RBC (Auto) 0-2 (0-2) /hpf U Hyaline Cast (Auto) 0-2 (0-2) /lpf U Epithel Cells (Auto) 0-2 (0-2) /hpf Urine Bacteria (Auto) None Seen (None Seen) Administered Medications Acetaminophen (Acetaminophen 325 Mg Tab) 650 mg PO QID PRN PRN Reason: pain/fever Stop: 03/19/24 04:02 Last Admin: 02/18/24 07:37 Dose: 650 mg Documented By: TRU Heparin Sodium (Porcine) (Heparin Sod 5,000 Unit/0.5 Ml Vial) 5,000 units SQ Q8 DINORA Stop: 03/19/24 05:59 Last Admin: 02/18/24 13:25 Dose: 5,000 units Documented By: Admin: 02/18/24 06:21 Dose: 5,000 units Documented By: CARMEN Promethazine HCl 6.25 mg/ (Sodium Chloride) 50.25 mls @ 201 mls/hr IV Q6H PRN PRN Reason: Nausea And Vomiting Stop: 03/19/24 03:56 Last Infusion: 02/18/24 13:37 Dose: Infused Documented By: Admin: 02/18/24 12:53 Dose: 201 mls/hr Documented By: TRU Oxycodone HCl (Oxycodone Hcl Ir 5 Mg Tab (Immediate Release)) 5 mg PO Q4H PRN PRN Reason: Pain Stop: 03/03/24 04:02 Last Admin: 02/18/24 11:24 Dose: 5 mg Documented By: TRU Discontinued Medications Hydromorphone HCl (Hydromorphone Inj 0.5 Mg/0.5 Ml Syr) 0.5 mg IV NOW STA Stop: 02/18/24 03:58 Last Admin: 02/18/24 04:11 Dose: 0.5 mg Documented By: Sodium Chloride (Nss) 500 mls @ 999 mls/hr IV .Q31M ONE Stop: 02/18/24 01:14 Last Infusion: 02/18/24 01:40 Dose: Infused Documented By: Admin: 02/18/24 01:01 Dose: 999 mls/hr Documented By: SANDY Acetaminophen (Ofirmev) 1,000 mg in 100 mls @ 400 mls/hr IV NOW STA Stop: 02/18/24 00:58 Last Infusion: 02/18/24 01:40 Dose: Infused Documented By: Admin: 02/18/24 00:59 Dose: 400 mls/hr Documented By: SANDY Potassium Chloride/Sodium Chloride (Normal Saline W/20 Meq Kcl) 20 meq in 1,000 mls @ 100 mls/hr IV .Q10H ONE; Protocol Stop: 02/18/24 13:26 Last Infusion: 02/18/24 14:46 Dose: Infused Documented By: Admin: 02/18/24 04:38 Dose: 100 mls/hr Documented By: Ioversol (Optiray 320 100ml) 94 ml IV ONCE ONE Stop: 02/18/24 01:53 Last Admin: 02/18/24 01:52 Dose: 94 ml Documented By: PARKER Morphine Sulfate (Morphine Sulfate 4 Mg/Ml 1 Ml Carp\Vial) 4 mg IV NOW STA Stop: 02/18/24 02:28 Last Admin: 02/18/24 02:53 Dose: 4 mg Documented By: SANDY Morphine Sulfate (Morphine Sulfate 4 Mg/Ml 1 Ml Carp\Vial) 4 mg IV NOW STA Stop: 02/18/24 03:38 Last Admin: 02/18/24 03:43 Dose: 4 mg Documented By: Ondansetron HCl (Ondansetron Inj 2 Mg/Ml 2 Ml Vial) 4 mg IV NOW STA Stop: 02/18/24 00:45 Last Admin: 02/18/24 00:59 Dose: 4 mg Documented By: SANDY Ondansetron HCl (Ondansetron Inj 2 Mg/Ml 2 Ml Vial) 4 mg IV NOW STA Stop: 02/18/24 03:38 Last Admin: 02/18/24 03:43 Dose: 4 mg Documented By: Imaging Data Radiologist's Impression: Abdomen/Pelvis CT 02/18/24 00:44 CT SCAN OF THE ABDOMEN AND PELVIS WITH IV CONTRAST CLINICAL HISTORY: Generalized abdominal pain. Reported history of breast cancer. COMPARISON STUDY: Abdominal CT dated 08/30/2023 TECHNIQUE: Following the IV administration of 94 cc of Optiray 320, CT scan of the abdomen and pelvis is performed from the lung bases to the proximal femora. Images are reviewed in the axial, sagittal, and coronal planes. IV contrast was administered without complication. A dose lowering technique was utilized adhering to the principles of ALARA. CT DOSE: 742.26 mGy.cm FINDINGS: Lung bases: The heart is normal in size and without pericardial effusion. There are very large left pleural effusions with dependent consolidation. Bilateral breast implants are partially imaged. Liver: The contrast-enhanced liver is normal in size, contour, and attenuation. There is mild intrahepatic biliary ductal dilatation. Pneumobilia is observed. The hepatic veins and portal veins are patent. Gallbladder: Surgically absent noting clips in the gallbladder fossa. Spleen: Normal in size and attenuation. Pancreas: Unremarkable. Adrenal glands: Unremarkable. Kidneys: The contrast enhanced kidneys are normal in size. There is mild left- sided hydronephrosis. Urothelial thickening and enhancement is seen within the renal pelvis bilaterally and involving both ureters, left greater than right. The kidneys enhance symmetrically. Abdominal vasculature: The abdominal aorta is normal in course and caliber. Bowel: The gastric mucosa appears thickened and hyperemic. No bowel obstruction is seen. The wall of the colon appears diffusely thickened with mucosal hyperemia. A small bowel anastomosis is seen in the right lower quadrant. Distended and fluid-filled, measuring up to 10 mm diameter as seen on axial image #20 and 24. The appendiceal wall is thickened and hyperemic. Peritoneum: There is a [id number] volume of abdominopelvic ascites. No intraperitoneal free air is seen. Peritoneal thickening and enhancement is suggested in the pelvis. Lymphadenopathy: None. Pelvic viscera: The bladder wall is markedly thickened with mucosal hyperemia. Uterine fibroids are suggested. No adnexal lesion is seen. Skeletal structures: The skeletal structures are osteopenic. There are numerous sclerotic lesions seen throughout the imaged bony structures. This is new from 08/30/2023 and favors multifocal osteoblastic metastatic disease. IMPRESSION: 1. The bladder wall is significantly thickened with mucosal hyperemia. Correlate with clinical findings and urinalysis. 2. There is mild left hydronephrosis, with no obstructing stone or lesion identified. Urothelial thickening seen in the renal collection system bilaterally and involving both ureters, greater on the left. Ascending urinary tract infection is not excluded. Again, this should be correlated with clinical and laboratory findings. 3. There is diffuse colonic wall thickening with mucosal hyperemia. The appearance favors a nonspecific pancolitis. Correlate clinically. 4. No bowel obstruction is seen. 5. The appendix is dilated and fluid filled with mucosal thickening PA and hyperemia. This may related to the suspected colitis. Acute appendicitis is considered less likely but is not entirely excluded. Clinical correlation will be essential. 6. Right larger than left pleural effusions with dependent atelectasis. 7. Ascites. Peritoneal thickening and enhancement is suggested in the pelvis. Carcinomatosis is not excluded. 8. Numerous sclerotic foci are seen throughout the skeletal structures. 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 9. The gastric mucosa appears thickened and hyperemic. Correlate clinically for evidence of gastritis. If warranted this could be further assessed with endoscopy. 10. Additional findings above. ACT 112: Negative or not required by law. Electronically signed by: Duncan Valle M.D. 02/18/2024 8:27 AM Discharge Plan Visit Data Chief Complaint: Abdominal Pain Stated Complaint: STOMACHE PAIN NAUSEA ED Provider: Nando Horton ED Midlevel Provider: Danitza Dubon Discharge Problem: Abdominal pain, Breast cancer metastasized to multiple sites, History of small bowel obstruction Patient Disposition: Admitted As Inpatient Condition: Good Discharge Instructions Interventions: ED Discharge Assessment Last Done: 02/18/24 05:33 Discharge Problem: Abdominal pain Qualifiers: Abdominal location: generalized Qualified Code(s): R10.84 - Generalized abdominal pain Breast cancer metastasized to multiple sites Qualifiers: Laterality: unspecified laterality Qualified Code(s): C50.919 - Malignant neoplasm of unspecified site of unspecified female breast
[2024-02-18 00:56] LABS: Appearance Urine Clear (Clear); Bacteria Urine Automated None Seen (None Seen); Bilirubin Urine Negative (Negative); Blood Urine Negative (Negative); Cast Urine Automated 0-2 /lpf (0-2); Color Urine Yellow; Epithelial Cell Urine Auto 0-2 /hpf (0-2); Glucose Urine UA Negative (Negative); Ketones Urine Negative (Negative); Leukocyte Esterase Urine 2+ (Negative); Nitrite Urine Negative (Negative); Protein Urine Negative (Negative); RBC Urine Automated 0-2 /hpf (0-2); Specific Gravity Urine 1.019 (1.000-1.030); Urobilinogen Urine Negative (Negative); WBC Urine Automated 21-50 /hpf (0-5)
[2024-02-18] MEDS: ONDANSETRON INJ 2 MG/ML 2 ML VIAL IV STA ×2 (00:59→03:43)
[2024-02-18] MEDS: ACETAMINOPHEN 1,000 MG/100 ML VIAL IV STA (00:59)
[2024-02-18] MEDS: SODIUM CHLORIDE 0.9% 500 ML IV ONE (01:01)
[2024-02-18 01:04] LABS: Basophils # (auto) 0.06 K/uL (0.00-0.20); Basophils % (auto) 1.2 %; Eosinophils # (auto) 0.25 K/uL (0.00-0.50); Eosinophils % (auto) 5.2 %; Hematocrit (blood only) 42.1 % (37.0-47.0); Hemoglobin 13.9 g/dl (12.0-16.0); Immature Granulocytes # (auto) 0.01 K/uL (0.01-0.20); Immature Granulocytes % (auto) 0.2 %; Lymphocytes # (auto) 1.08 K/uL (1.20-3.40); Lymphocytes % (auto) 22.5 %; Mean Corpuscular Hemoglobin 29.9 pg (25.0-34.0); Mean Corpuscular Volume 90.5 fL (80.0-100.0); Mean Platelet Volume 10.1 fL (9.4-12.4); Monocytes # (auto) 0.41 K/uL (0.11-0.59); Monocytes % (auto) 8.5 %; Neutrophils % (auto) 62.4 %; Platelet Count 260 K/uL (130-400); RDW Coefficient of Variation 12.7 % (11.5-14.5); Red Blood Count 4.65 M/uL (4.20-5.40); White Blood Count 4.81 K/ul (4.8-10.8)
[2024-02-18 01:11] LABS: Albumin Globulin Ratio 1.6 (0.9-2); Albumin Level 4.3 gm/dl (3.4-5.0); BUN Creatinine Ratio 17.2 (10-20); Bilirubin,Total 0.2 mg/dl (0.2-1.0); Calcium 9.3 mg/dl (8.6-10.3); Creatinine Clr Calc Pharmacy 46.5 ml/min; Est GFR (Non-African American) 45.8 ml/min; Globulin 2.7 gm/dl (2.5-4.0); Potassium 3.3 mmol/L (3.5-5.1)
[2024-02-18 01:17] LABS: Troponin I High Sensitivity 3.7 pg/ml (0-14)
[2024-02-18 01:19] LABS: Prothrombin Time 10.4 Seconds (9.0-12.0)
[2024-02-18] MEDS: OPTIRAY 320 100ml IV ONE (01:52)
[2024-02-18] MEDS: MoRPHine SULFATE 4 MG/ML 1 ML CARP\\VIAL IV STA ×2 (02:53→03:43)
--- NOTE | 2024-02-18 03:59 | History & Physical Report ---
Date of Service February 18, 2024 Assessment & Plan (1) Abdominal pain: Plan: Rule out recurrent SBO ARF on CKD secondary to illness Asymptomatic pyuria, no sepsis for now metastatic breast cancer status post surgery/chemoradiation/tamoxifen Rx ongoing Truqap/Faslodex Rx sarcoidosis as per records mood disorder, stable. OBS GMF Analgesia Follow CT abdomen pelvis read N.p.o. until CT results known Monitor creatinine response to IVF Follow urine CS, hold off on antibiotics for now for asymptomatic pyuria DVT prophylaxis. Heparin subcu Full code Text document was generated using [employer] voice recognition software. It may contain grammatical or spelling errors. Kindly contact undersigned for clarification of any documentation item in question. History of Present Illness Chief Complaint: Abdominal pain Primary Care Provider: Susie White MD History obtained from patient and records. Medical history significant for metastatic breast cancer status post surgery/chemoradiation/tamoxifen Rx ongoing Truqap/Faslodex Rx, CRI (baseline creatinine 1.3), sarcoidosis as per records, mood disorder. Last confinement August 2023 for SBO status post surgery. Last night patient had achy epigastric discomfort associated with nausea symptoms reminiscent of SBO episode. No chest pain, no SOB. Usual diarrhea symptoms attributed to cancer medication as per patient. No fever, no chills. Denies dysuria/urinary frequency symptoms. Medical History as above Surgical History : [place] and BSO, breast capsulectomy/reconstruction/tissue social professionals placement, D&C, ex lap, cholecystectomy, bilateral mastectomy, left ankle surgery vascular procedure, Family History : Dementia, colon cancer, skin cancer Personal/Social history : Non-smoker, occasional EtOH intake, [employer] employee Allergies Allergy/AdvReac Type Severity Reaction Status Date / Time No Known Allergies Allergy Verified 02/18/24 01:10 Home Medications Medication Instructions Recorded Confirmed Type trazodone 50 mg tablet 50 mg PO HS 07/03/23 02/18/24 History capivasertib 200 mg tablet (Truqap) 200 mg PO DIRECTED 02/18/24 02/18/24 History cetirizine 10 mg tablet (Zyrtec) 10 mg PO DAILY PRN NEEDED PER PT 02/18/24 02/18/24 History fulvestrant 250 mg/5 mL 0 mg IM MONTHLY 02/18/24 02/18/24 History intramuscular syringe loperamide 2 mg capsule 2 mg PO DIRECTED PRN Diarrhea 02/18/24 02/18/24 History ondansetron HCl 8 mg tablet 8 mg PO TID PRN NAUSEA/VOMITING 02/18/24 02/18/24 History Past Med/Surg History Problem List (Updated 02/18/24 @ 06:35 by Delio Rincon MD) Abdominal pain Hx of abdominal surgery (09/01/23) Diagnostic Laparoscopy - Release of Small Bowel Obstruction, mini laparotomy with partial resection of small bowel(Not Applicable) - Derek Teresa DO Hydronephrosis SBO (small bowel obstruction) (Acute) Bile duct calculus (Acute) Encounter for pre-operative examination DVT prophylaxis Lymph node enlargement Acute cholecystitis (Acute) Sarcoidosis Surgical History (Updated 10/10/23 @ 08:57 by Derek Teresa DO) Hx laparoscopic cholecystectomy (10/02/19) Laparoscopic Cholecystectomy with Cholangiogram Dr. Vargas 10/02/19 History of D&C History of esophagogastroduodenoscopy (EGD) 11/2018 dx gastritis History of bronchoscopy History of oophorectomy History of bilateral mastectomy 04/21/2012 Right mastectomy with right axillary lymph node dissectiona nd left prophylactic mastectomy 04/21/12 Dr. Carbajal at [facility] Family History Father Alive and well Mother Alzheimer disease Denies family history of Heart disease Breast cancer Social History Smoking Status: Never smoker Do You Dip or Chew Tobacco: No; Hx Alcohol Use: No Hx Substance Use: No Preferred Language: Latvian Communication Ability: Effective Visual Impairment: No Limitations Chain Tender Required: No Beliefs That Will Affect Care: None marital status: Current Living Situation: Spouse Feels Safe at Home: Yes Safety Concerns: Feels Safe At This Time Assistive Devices: Glasses Review of Systems Review of Systems: As per HPI, all other systems reviewed and negative Physical Exam Physical Exam: GENERAL: uncomfortable, pleasant, no respiratory distress SKIN: Normal color, warm HEENT: Bespectacled, pink palpebral conjunctivae, no ptosis, dry buccal mucosa NECK : Supple, no tenderness CHEST : CTA, no tenderness HEART : RRR, no obvious murmurs ABDOMEN: Some distention, epigastric tenderness EXTREMITIES : No LE swelling/tenderness, no other conspicuous deformities noted NEUROLOGIC : Coherent, no facial asymmetry, no other gross focality Results & Data Results & Data Vital Signs (Past 12 Hours) Vital Signs Temp Pulse Pulse Resp BP BP Pulse Ox 02/18/24 02:01 60 130/86 97 02/18/24 01:00 64 21 139/86 93 02/18/24 01:00 139/86 02/18/24 00:30 90 02/18/24 00:18 98 02/18/24 00:18 67 19 131/78 97 02/18/24 00:13 36.6 C 77 20 138/90 96 O2 Del Method 02/18/24 02:01 02/18/24 01:00 02/18/24 01:00 02/18/24 00:30 02/18/24 00:18 Room Air 02/18/24 00:18 Room Air 02/18/24 00:13 Room Air Laboratory Results Laboratory Results WBC 4.81 K/ul (4.8-10.8) 02/18/24 00:30 RBC 4.65 M/uL (4.20-5.40) 02/18/24 00:30 Hgb 13.9 g/dl (12.0-16.0) 02/18/24 00:30 Hct 42.1 % (37.0-47.0) 02/18/24 00:30 MCV 90.5 fL (80.0-100.0) 02/18/24 00:30 MCH 29.9 pg (25.0-34.0) 02/18/24 00:30 MCHC 33.0 g/dL (32.0-36.0) 02/18/24 00:30 RDW Std Deviation 42.0 fL (36.4-46.3) 02/18/24 00:30 RDW Coeff of Salvatore 12.7 % (11.5-14.5) 02/18/24 00:30 Plt Count 260 K/uL (130-400) 02/18/24 00:30 MPV 10.1 fL (9.4-12.4) 02/18/24 00:30 Immature Gran % (Auto) 0.2 % 02/18/24 00:30 Neut % (Auto) 62.4 % 02/18/24 00:30 Lymph % (Auto) 22.5 % 02/18/24 00:30 Treasure % (Auto) 8.5 % 02/18/24 00:30 Eos % (Auto) 5.2 % 02/18/24 00:30 Baso % (Auto) 1.2 % 02/18/24 00:30 Neut # (Auto) 3.00 K/uL (1.40-6.50) 02/18/24 00:30 Lymph # (Auto) 1.08 K/uL (1.20-3.40) L 02/18/24 00:30 Treasure # (Auto) 0.41 K/uL (0.11-0.59) 02/18/24 00:30 Eos # (Auto) 0.25 K/uL (0.00-0.50) 02/18/24 00:30 Baso # (Auto) 0.06 K/uL (0.00-0.20) 02/18/24 00:30 Immature Gran # (Auto) 0.01 K/uL (0.01-0.20) 02/18/24 00:30 PT 10.4 Seconds (9.0-12.0) 02/18/24 00:30 INR 1.0 (0.9-1.1) 02/18/24 00:30 Sodium 137 mmol/L (136-145) 02/18/24 00:30 Potassium 3.3 mmol/L (3.5-5.1) L 02/18/24 00:30 Chloride 106 mmol/L (98-107) 02/18/24 00:30 Carbon Dioxide 23 mmol/L (21-32) 02/18/24 00:30 Anion Gap 8 (3-11) 02/18/24 00:30 BUN 23 mg/dl (6-23) 02/18/24 00:30 Creatinine 1.34 mg/dl (0.6-1.2) H 02/18/24 00:30 Est Cr Clr Drug Dosing 46.5 ml/min 02/18/24 00:30 Est GFR ( Amer) 53.0 ml/min 02/18/24 00:30 Est GFR (Non-Af Amer) 45.8 ml/min 02/18/24 00:30 BUN/Creatinine Ratio 17.2 (10-20) 02/18/24 00:30 Glucose 92 mg/dl (70-99(Fasting)) 02/18/24 00:30 Lactate 0.5 mmol/L (0.4-2.0) 02/18/24 00:58 Calcium 9.3 mg/dl (8.6-10.3) 02/18/24 00:30 Magnesium 2.0 mg/dl (1.7-2.4) 02/18/24 00:30 Total Bilirubin 0.2 mg/dl (0.2-1.0) 02/18/24 00:30 AST 24 U/L (13-39) 02/18/24 00:30 ALT 19 U/L (7-52) 02/18/24 00:30 Alkaline Phosphatase 46 U/L (34-104) 02/18/24 00:30 Troponin I High Sens 3.7 pg/ml (0-14) 02/18/24 00:30 Total Protein 7.0 gm/dl (6.0-8.3) 02/18/24 00:30 Albumin 4.3 gm/dl (3.4-5.0) 02/18/24 00:30 Globulin 2.7 gm/dl (2.5-4.0) 02/18/24 00:30 Albumin/Globulin Ratio 1.6 (0.9-2) 02/18/24 00:30 Lipase 46 U/L (11-82) 02/18/24 00:30 Urine Color Yellow 02/18/24 00:30 Urine Appearance Clear (Clear) 02/18/24 00:30 Urine pH 5.0 (4.5-7.5) 02/18/24 00:30 Ur Specific [place] 1.019 (1.000-1.030) 02/18/24 00:30 Urine Protein Negative (Negative) 02/18/24 00:30 Urine Glucose (UA) Negative (Negative) 02/18/24 00:30 Urine Ketones Negative (Negative) 02/18/24 00:30 Urine Blood Negative (Negative) 02/18/24 00:30 Urine Nitrite Negative (Negative) 02/18/24 00:30 Urine Bilirubin Negative (Negative) 02/18/24 00:30 Urine Urobilinogen Negative (Negative) 02/18/24 00:30 Ur Leukocyte Esterase 2+ (Negative) H 02/18/24 00:30 Urine WBC (Auto) 21-50 /hpf (0-5) H 02/18/24 00:30 Urine RBC (Auto) 0-2 /hpf (0-2) 02/18/24 00:30 U Hyaline Cast (Auto) 0-2 /lpf (0-2) 02/18/24 00:30 U Epithel Cells (Auto) 0-2 /hpf (0-2) 02/18/24 00:30 Urine Bacteria (Auto) None Seen (None Seen) 02/18/24 00:30 Diagnostic Findings EKG as per my interpretation : Rate 70, NSR, normal axis, T wave abnormalities septal leads
[2024-02-18] MEDS ORDERED: HYDROmorphone INJ 0.5 MG/0.5 ML SYR IV PRN (04:02)
[2024-02-18] MEDS ORDERED: LORazepam 0.5 MG TAB PO PRN (04:03)
[2024-02-18] MEDS: HYDROmorphone INJ 0.5 MG/0.5 ML SYR IV STA (04:11)
[2024-02-18] MEDS: NSS + 20MEQ KCL 20 MEQ/1,000 ML BAG IV ONE (04:38)
[2024-02-18] MEDS ORDERED: CETIRIZINE HCL 10 MG TABLET PO PRN (05:46)
[2024-02-18 06:12] VITALS: RESP 16
[2024-02-18] MEDS: HEPARIN SOD 5,000 UNIT/0.5 ML VIAL SQ SCH (06:21)
[2024-02-18] MEDS: ACETAMINOPHEN 325 MG TAB PO PRN (07:37)
--- NOTE | 2024-02-18 08:30 | CT Scan Report ---
CT SCAN OF THE ABDOMEN AND PELVIS WITH IV CONTRAST CLINICAL HISTORY: Generalized abdominal pain. Reported history of breast cancer. COMPARISON STUDY: Abdominal CT dated 08/30/2023 TECHNIQUE: Following the IV administration of 94 cc of Optiray 320, CT scan of the abdomen and pelvi s is performed from the lung bases to the proximal femora. Images are reviewed in the axial, sagittal , and coronal planes. IV contrast was administered without complication. A dose lowering technique wa s utilized adhering to the principles of ALARA. CT DOSE: 742.26 mGy.cm FINDINGS: Lung bases: The heart is normal in size and without pericardial effusion. There are very large left p leural effusions with dependent consolidation. Bilateral breast implants are partially imaged. Liver: The contrast-enhanced liver is normal in size, contour, and attenuation. There is mild intrahe patic biliary ductal dilatation. Pneumobilia is observed. The hepatic veins and portal veins are ralph nt. Gallbladder: Surgically absent noting clips in the gallbladder fossa. Spleen: Normal in size and attenuation. Pancreas: Unremarkable. Adrenal glands: Unremarkable. Kidneys: The contrast enhanced kidneys are normal in size. There is mild left-sided hydronephrosis. U rothelial thickening and enhancement is seen within the renal pelvis bilaterally and involving both u reters, left greater than right. The kidneys enhance symmetrically. Abdominal vasculature: The abdominal aorta is normal in course and caliber. Bowel: The gastric mucosa appears thickened and hyperemic. No bowel obstruction is seen. The wall of the colon appears diffusely thickened with mucosal hyperemia. A small bowel anastomosis is seen in th e right lower quadrant. Distended and fluid-filled, measuring up to 10 mm diameter as seen on axial i mage #20 and 24. The appendiceal wall is thickened and hyperemic. Peritoneum: There is a akwub-by-mhgbtwwo volume of abdominopelvic ascites. No intraperitoneal free ai r is seen. Peritoneal thickening and enhancement is suggested in the pelvis. Lymphadenopathy: None. Pelvic viscera: The bladder wall is markedly thickened with mucosal hyperemia. Uterine fibroids are s uggested. No adnexal lesion is seen. Skeletal structures: The skeletal structures are osteopenic. There are numerous sclerotic lesions see n throughout the imaged bony structures. This is new from 08/30/2023 and favors multifocal osteoblasti c metastatic disease. IMPRESSION: 1. The bladder wall is significantly thickened with mucosal hyperemia. Correlate with clinical findin gs and urinalysis. 2. There is mild left hydronephrosis, with no obstructing stone or lesion identified. Urothelial thic kening seen in the renal collection system bilaterally and involving both ureters, greater on the lef t. Ascending urinary tract infection is not excluded. Again, this should be correlated with clinical and laboratory findings. 3. There is diffuse colonic wall thickening with mucosal hyperemia. The appearance favors a nonspecif ic pancolitis. Correlate clinically. 4. No bowel obstruction is seen. 5. The appendix is dilated and fluid filled with mucosal thickening PA and hyperemia. This may relate d to the suspected colitis. Acute appendicitis is considered less likely but is not entirely excluded . Clinical correlation will be essential. 6. Right larger than left pleural effusions with dependent atelectasis. 7. Ascites. Peritoneal thickening and enhancement is suggested in the pelvis. Carcinomatosis is not e xcluded. 8. Numerous sclerotic foci are seen throughout the skeletal structures. This is new from 08/30/2023 an d given the history of breast cancer is highly suggestive of multifocal osteoblastic metastatic disea se. 9. The gastric mucosa appears thickened and hyperemic. Correlate clinically for evidence of gastritis . If warranted this could be further assessed with endoscopy. 10. Additional findings above. ACT 112: Negative or not required by law. Electronically signed by: Duncan Valle M.D. 02/18/2024 8:27 AM
[2024-02-18 09:02] LABS: BUN Creatinine Ratio 16.8 (10-20); Calcium 8.2 mg/dl (8.6-10.3); Creatinine Clr Calc Pharmacy 59.8 ml/min; Est GFR (African American) 65.2 ml/min; Est GFR (Non-African American) 56.2 ml/min
[2024-02-18] MEDS: oxyCODONE HCL IR 5 MG TAB (IMMEDIATE RELEASE) PO PRN (11:24)
--- OUTSIDE RECORDS SUMMARY | 2024-02-18 11:31 | External Medical Summary | Summary of Care ---
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) Malignant neoplasm of overlapping sites of both breasts in female, estrogen receptor positive (HCC) Procedures HI INJECTION, FULVESTRANT Cory Infante MD [address] [place] [address] [place] [address] Anc Hem/Onc [address] [address] Referral ID Status Reason Start Date Expiration Date V isits Requested Visits Authorized [id number] Authorized 09/16/2023 03/13/2024 [id number] Encounter Details Date Type Department Care Team (Late st Contact Info) Description 02/14/2024 10:00 AM EDT Immunization/I njection Hematology/Oncology Treatment, [address] [phone] Chair Gisele 5 Hem Onc [address] [place] [address] 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 100 Tab 11 09/08/2012 Active Omeprazole 20 MG Oral Capsule Delayed Release (PriLOSEC) Take 1 Capsule by mouth in the morning and 1 Capsule in the evening. 60 Capsule 5 06/07/2023 Active Additional Information Patient not taking.Reported on 12/06/2023 Polyethylene Glycol 3350 17 GM Oral Packet (Miralax) Take 1 Packet by mouth in the morning. Active Fulvestrant 250 MG/5ML Intramuscular Solution Prefilled Syringe (Faslodex) Inject into a large muscle every 4 weeks. Active traZODone HCl 50 MG Oral Tablet (Desyrel)Indications :Other insomnia TAKE 1 TABLET AT BEDTIME 90 Tablet 3 11/16/2023 Active busPIRone HCl 5 MG Oral Tablet (Buspar)Indications: Adjustment disorder with anxious mood Take 1 Tablet by mouth every evening. 90 Tablet 2 11/17/2023 Active Cetirizine HCl 10 MG Oral Tablet (ZyrTEC)Indications: Malignant neoplasm of overlapping sites of both breasts in female, estrogen receptor positive (HCC) Take 1 Tablet by mouth in the morning. Take 10 mg by mouth daily. 30 Tablet 1 12/02/2023 Active Loperamide HCl 2 MG Oral Tablet (Immodium (A-D))Indications:Ma lignant neoplasm of overlapping sites of both breasts in female, estrogen receptor positive (HCC) Take 4 mg, followed by 2 mg every 2-4 hours or after each loose stool. Maximum of 16 mg/day. 60 Tablet 3 12/02/2023 Active Udderly Smooth Extra Care 20 External CreamIndications:Mal ignant neoplasm of overlapping sites of both breasts in female, estrogen receptor positive (HCC) Apply topically to affected area on hands and feet twice daily. 228 g 3 12/02/2023 Active Capivasertib 200 MG Oral TabletIndications:Ma lignant neoplasm of overlapping sites of both breasts in female, estrogen receptor positive (HCC) Take 400 mg by mouth in the morning and 400 mg before bedtime. Take on days 1-4, 8-11, 15-18, and 22-25 of each cycle. Administer with or without food.. 64 Tablet 5 12/02/2023 Active Ondansetron HCl 8 MG Oral TabletIndications:Ma lignant neoplasm of overlapping sites of both breasts in female, estrogen receptor positive (HCC) Take 1 Tablet by mouth every 8 hours as needed for Nausea or Vomiting. 60 Tablet 3 12/06/2023 Active documented as of this encounter (statuses as of 02/14/2024) Active Problems Problem Noted Date Diagnosed Date Intermittent small bowel obstruction due to adhe sions 07/18/2023 Family hx of melanoma 05/26/2023 Overview: Sister Stage 3a chronic kidney disease 06/16/2020 Overview: Per CKD protocol - Per CKD protocol Adjustment insomnia 01/24/2020 Liver lesion 10/19/2019 Metastatic cancer to intra-abdominal lymph nodes 10/12/2019 Overview: Not resolved Microscopic hematuria 12/04/2014 Overview: Insignificant. 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 ADVANCE DIRECTIVE INFORMATION 05/25/2012 Metastatic 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 nodes 2011 Malignant neoplasm of overla pping sites of both breasts in female, estrogen receptor positive Cancer Staging:Clinical:Stage IIB(T3, N0, M0) - Unsigned Pathologic:Stage IIIC(T3, N3a, cM0) - Unsigned Overview: invasive ductal Sarcoidosis documented as of this encounter (statuses as of 02/14/2024) Resolved Problems Problem Noted Date Diagnosed Date Resolved Date Neutropenia 01/24/2020 11/10/2020 Kidney disease, chronic, sta ge III (GFR 30-59 ml/min) 01/14/2020 06/19/2020 Overview: Per CKD protocol Intra-abdominal lymphadenopathy 10/19/2019 08/19/2023 Encounter for antineoplastic chemotherapy 05/19/2012 12/27/2017 Encounter [...] Infante MD PI CRC Name: Molly Chowdhury [facility] Contact PI or MOTORCYCLE TECHNICIAN regarding any serious medical event, if [...] Infante MD PI CRC Name: Molly Chowdhury [facility] Contact PI or MOTORCYCLE TECHNICIAN regarding any serious medical event, if new Rx given, ER visit, hospitalization, or billing question Diagnosis changed due to Research Module. Go to Snapshot for study details. documented as of this encounter (statuses as of 02/14/2024) Immunizations Name Administration Dates Next Due COVID-19 [...] Inj 06/08/2019 TDAP (age 10 and older)(Boostrix) 11/17/2023, Zoster Vaccine Recombinant (Shingrix) 01/06/2023 ,10/28/2022 documented as of this encounter Social History Tobacco Use Types Packs/Day Years Used Date Smoking Tobacco: Never Smokeless Tobacco: Never Alcohol Use Standard Drinks/Week Comments Yes 0 (1 standard drink = 0.6 oz pur e alcohol) occasional PHQ-2 Answer Date Recorded PHQ Adult Total Score 0 11/17/2023 Hunger Vital Sign Answer Date Recorded Within the past 12 months, y ou worried that your food would run out before you got the money to buy more. Never true 10/29/19 23 Within the past 12 months, t he food you bought just didn't last and you didn't have money to get more. Never true 10/28/2022 Utilities Answer Date Recorded Do you have trouble paying y our heating, water, or electric bill? (Adult - for ages 18 years and over) Not on file 01/24/2024 Is your family able to pay t he heat, water, or electric bill? (Household - for ages 0-17 years) Not on file 01/24/2024 Does your family have access to good internet? (Household - for ages 0-17 years) Not on file 01/24/2024 Social Connections Answer Date Recorded How often do you feel lonely or isolated from those around you? (Adult - for ages 18 years and over) Not on file 01/24/2024 Sex and Gender Information Value Date Recorded Sex Assigned at Female 04/12/2019 8:14 AM EDT Gender Identity Female 04/12/2019 8:14 AM EDT Sexual Orientation Straight 10/28/2022 9: 19 AM EDT Job Start Date Occupation Industry Not on file Not on file Not on file documented as of this encounter Nursing Notes * Christine Montemayor, RN - 02/14/2024 10:21 AM EDT Exam room 4. Patient here for Faslodex injections. She is feeling well and tolerating without issues. Injections given in R and L buttock, no issues. Patient left in stable condition and denied furtherneeds at this time. documented in this encounter Plan of Treatment Upcoming Encounters Date Type Department Care Team (Late st Contact Info) Description 03/05/2024 9:30 AM EDT Pharmacy Pharmacy Hematology Oncology [facility] [address] [place] [address] [facility] Hem/Onc [address] [place] [address] 03/13/2024 10:45 AM EDT Imaging Radiology [facility] 1st [facility], [place] [address] [facility] [place] [address] 03/14/2024 8:30 AM EDT Immunization/Inject ion Hematology/Oncology Treatment, [place] [address] [place] [phone] Nurse, Med [address] [place] [address] [address] [address] 04/10/2024 9:15 AM EDT Office Visit Hematology/Oncology [facility] [place] [address] [place] [phone] Cory Infante MD [address] [place] [address] [address] 04/10/2024 9:45 AM EDT Immunization/Inject ion Hematology/Oncology Treatment, [place] [address] [place] [address] [place] [phone] Nurse, Med [address] [place] [address] 05/25/2024 10:40 AM EDT Office Visit General Internal Medicine [facility] [address] [place] [address] Susie White MD [address] [place] [place] [address] 07/24/2024 11:00 AM EST Office Visit Dermatology[address], [place] [address] Donita Cornejo, AUTUMN [address] [place] [address] [place] [address] Scheduled Procedures Name Priority Associated Diagnoses Date/Ti me COLONOSCOPY FLEXIBLE PROXIMA L DIAGNOSTIC Recall History of colonic polyps Health Maintenance Due Date Last Done Comments Hepatitis B Vaccine (1 of 3 - 19+ 3-dose series) 1991 Cologuard 2017 Fecal Occult Blood Test 2017 Sigmoidoscopy 2017 Influenza Vaccine (FLU shot) (#1) 2024 06/12/2023, 06/12/2023, 06/17/2022, Additional history exists GFR 08/04/2024 02/03/2024, 06/0 02/2024, 12/29/2023, Additional history exists Depression Screening 11/16/2024 11/17/2023 Albumin/Creatinine Ratio 11/20/2024 024, 10/28/2022, 10/12/2021 CKD PHOS USE SMARTSET 12114 11/20/2024 04/12/2023, 12/01/2022, 10/12/2021, Additional history exists CKD HGB USE SMARTSET 78512 02/02/202502/02, 02/03/2024, 01/13/2024, Additional history exists Pneumococcal Vaccine: Pediatrics (0 to 5 Years) and At-Risk Patients (6 to 64 Years) (3 of 3 - PPSV23 or PCV20) 10/01/2026 10/01/2021, 05/26/2020 Diabetes Screening 02/02/2027 02/03/2024, 0 02/03/2024, 01/13/2024, Additional history exists Colonoscopy 05/09/2028 05/09/2023, 05/09/2023 Colorectal Cancer Screening 05/09/2028 Lipid Panel 11/20/2028 11/21/2023, 11/07, 10/12/2021, Additional history exists DTaP,Tdap,and Td Vaccines (3 - Td or Tdap) 11/16/2033 11/17/2023, 11/02/2013 Zoster Vaccines Completed 01/06/2023, 10/28/2022 RETIRED - COLONOSCOPY-EVERY 5 YRS AGES 18-100 Discontinued 05/09/2023, 05/09/2023 COVID-19 Vaccine Completed 06/12/2023, , 02/02/2022, Additional history exists HPV (Gardasil) Vaccine Aged Out No lo nger eligible based on patient's age to complete this topic MENINGOCOCCAL (MENACTRA/MENVEO) Aged Out No longer eligible based on patient's age to complete this topic documented as of this encounter Medical Devices Implanted Type Area Bi Application Developer Device Identifier Shelf Expiration Date Model / Serial / Lot Implant Hi Prof Gel 750cc - [id number] [place] [facility] [place] Breast MENTOR DARVIN 11/30/2013 350-7504BC / [id number] / [id number] Implant Hi Prof Gel 750cc - [id number] Implanted:Q[place]: 1 [place] 07[place]02[place] [facility] [place] Breast MENTOR DARVIN 04/01/2014 350-7504BC / [id number] / [id number] documented as of this encounter Visit Diagnoses Diagnosis 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)- Primary Secondary and unspecified malignant neoplasm of intra-abdominal lymph nodes 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) Secondary and unspecified malignant neoplasm of lymph nodes of axilla and upper limb Malignant neoplasm of overlapping sites of both breasts in female, estrogen receptor positive (HCC) documented in this encounter Administered Medications Inactive Administered Medications - up to 3 most recent administrations Medication Order MAR Action Action Date Dose Rate Site Fulvestrant (Faslodex) inj 500 mg 500 mg, Intramuscular, ONCE, On Tue02/14/24 at 1115, For 1 dose Given 02/14/2024 10:04 AM EDT 500 mg Dorsogluteal Right documented in this encounter Advance Directives * Full Code (Latest Code Status on File) Date Activated Date Inactivated Comments 01/14/2014 8:52 AM 01/14/2014 4:20 PM This order ref lects the patients wishes and were consensually agreed upon. * Full Code Date Activated Date Inactivated Comments 01/14/2014 5:37 AM 01/14/2014 8:52 AM This order ref lects the patients wishes and were consensually agreed upon. * Full Code Date Activated Date Inactivated Comments 07/02/2013 2:20 PM 07/03/2013 2:05 PM This order reflects the patients wishes and were consensually agreed upon. Question Answer Comments Discussion of Advance Directives occurred with: Not Discussed Care Teams Rehabilitation Specialist Relationship Specialty Start Date End Date Susie White MD [address] [place] [address] PCP - General Internal Medicine 03/02/12 documented as of this encounter
--- OUTSIDE RECORDS SUMMARY | 2024-02-18 11:31 | External Medical Summary | Summary of Care ---
Author Name Unknown Organization [facility] Address [address] [place] [address] Phone [phone] Care Team Providers Care Collective Bargaining Specialist Name Role Phone Susie White MD Primary Care Provider [phone] Reason for Visit * Reason Comments Medication Management Encounter Details Date Type Department Care Team (Late st Contact Info) Description 02/06/2024 9:30 AM EDT Pharmacy Pharmacy Hematology Oncology [facility] [address] [place] [address] [facility] Hem/Onc [address] [place] [address] Malignant neoplasm of overlapping sites of both [...] CRC Name: Molly LIND Contact PI or FEATHER EDGER regarding any serious medical event, if new [...] MD PI CRC Name: Molly Chowdhury [facility] Contact PI or FEATHER EDGER regarding any serious medical event, if new [...] as of this encounter Progress Notes * Rosemary Salvador OSA - 02/14/2024 11:07 AM EDT Patient returning OCC [facility] call from last week. Advised patient that next labs would be due at the end of February. Patient verbalized understanding and will set those up. LEN Killian Sheet Metal Erector Pharmacy Hematology Oncology Oral Chemotherapy Clinic Medication Therapy Disease Management [facility] 02/14/24 11:08 AM * Radha Toscano, [facility] - 02/06/2024 10:26 AM EDT MEDICATION THERAPY MANAGEMENT CAPIVASERTIB TREATMENT PROGRESS NOTE Shante Cordoba [phone] Patient Phone Numbers Preferred Lab: [facility]: [facility] Communication: Left message requesting return call to assess toleration to therapy Treatment: Medication: Capivasertib (Truqap) Indication/Staging/Diagnosis Code: Metastatic Breast Cancer, ER+, GA+, HER2-, PIK3CA mutation C50.811, C50.812, Z17.0 Dose: 400 mg twice daily (~12 hours apart) for 4 consecutive days, followed by 3 days off (administer capivasertib on days 1 to 4 of each week) Administration: +/- food Start Date: 12/19/23 Primary Barmaid/Oncologist: Dr. Yeimy Infante [id number] Study Additional Therapy: Fulvestrant Supportive Care Meds: Cetirizine Ondansetron Loperamide Urea Cream Treatment History: -S/P bilateral mastectomies followed by immediate reconstruction (April,) -Dose dense AC followed by weekly paclitaxel between 05/22/2012-11/01/2012 Adjuvant radiation treatment completed in January,. - had Zoladex -S/P bilateral oophorectomy in January, (no hysterectomy) -tamoxifen between January [id number] 2020. - Letrozole and ribociclib between 10/2019 -09/2023 (discontinued because of disease progression mainly in the abdomen Interval History: N/A Changes to medication list since last visit? No Assessment and Plan: FBG WNL ANC improving to WNL All other labs stable Continue current therapy and monthly fasting labs Assessment of compliance: N/A Assessment of adverse effects attributed to drug therapy: N/A Dose adjustment needed based on lab or adverse drug reaction? No Follow up: 1 month Radha Toscano, PharmD, BCOP Clinical Pharmacist, [facility] Oral Chemotherapy [facility] 02/06/2024, 10:30 AM Monitoring Parameters: Estimated CrCl Serum creatinine: 1.3 mg/dL (H) 02/03/24 0754 Estimated creatinine clearance: 53 mL/min (A) Hepatitis panel Complete 12/01/22 Not immune to hepatitis B virus test S/p oophorectomy Suggested lab monitoring Evaluate fasting blood glucose (FBG) and HbA1c prior to capivasertib initiation and periodically during therapy. Evaluate FBG at least every 2 weeks during the first month and at least once a month starting from the second month, prior to the scheduled capivasertib dose Treatment Parameters Please refer to PI Pertinent Labs: Latest Reference Range & Units 12/29/23 07:41 01/13/24 08:16 02/03/24 07:54 Fasting Plasma Glucose 70 - 99 mg/dL 84 83 86 Latest Reference Range & Units 12/29/23 07:41 01/13/24 08:16 02/03/24 07:54 Glucose 70 - 120 mg/dL 85 81 87 Latest Reference Range & Units 12/29/23 07:41 01/13/24 08:16 02/03/24 07:54 WBC 4.00 - 10.80 K/uL 3.32 (L) 3.16 (L) 3.76 (L) RBC 3.85 - 5.15 M/uL 4.34 4.59 4.47 HGB 12.0 - 15.3 g/dL 13.4 14.1 13.5 HCT 36.0 - 45.2 % 41.0 43.8 41.9 MCV 81.5 - 97.5 fL 94.5 95.4 93.7 MCH 27.0 - 34.0 pg 30.9 30.7 30.2 MCHC 32.0 - 36.0 g/dL 32.7 32.2 32.2 RDW 11.5 - 15.5 % 12.7 12.6 12.6 PLT 140 - 400 K/uL 253 249 272 MPV 6.6 - 11.1 fL 11.1 10.5 10.5 CBC WITH WBC DIFFERENTIAL Rpt ! Rpt ! Rpt ! Absolute Neutrophils 1.80 - 7.70 K/uL 1.50 (L) 1.60 (L) 1.91 Latest Reference Range & Units 12/29/23 07:41 01/13/24 08:16 02/03/24 07:54 Albumin 3.8 - 5.0 g/dL 4.0 4.1 4.0 AST 10 - 35 U/L 23 22 25 ALT 10 - 35 U/L 27 21 26 Alkaline Phosphatase 35 - 130 U/L 50 49 52 Bilirubin, Total <=1.2 mg/dL <0.2 0.2 0.2 Time Spent on Encounter: 6 - 10 minutes Encounter Group: Oncology Encounter Interventions Item Category: Oral Chemotherapy Other: Capivasertib Problem/Rationale: Safety: Needs additional monitoring - Medication Requires monitoring Pharmacist Intervention(s): Lab monitoring Magnitude of Intervention: Monitoring with direction (Level 1) documented in this encounter Plan of Treatment Upcoming Encounters Date Type Department Care Team (Late st Contact Info) Description 03/05/2024 9:30 AM EDT Pharmacy Pharmacy Hematology Oncology [facility] [address] [place] [address] [facility] Hem/Onc [address] [place] [address] 03/13/2024 10:45 AM EDT Imaging Radiology [facility] 1st [facility], [place] [address] [facility] [place] [address] 03/14/2024 8:30 AM EDT Immunization/Inject ion Hematology/Oncology Treatment, [place] [address] [place] [phone] Nurse, Med 4 [address] [place] [address] 04/10/2024 9:15 AM EDT Office Visit Hematology/Oncology [facility] [place] [address] [place] [phone] Cory Infante MD [address] [place] [address] 04/10/2024 9:45 AM EDT Immunization/Inject ion [facility]ematology[facility] [place] [facility] [phone] Nurse, Med 4 [address] [facility] [place] [address] 05/25/2024 10:40 AM EDT Office Visit General Internal Medicine [facility] [place] [address] [facility] [place] [address] Susie White MD [address] [facility] [place] [address] 07/24/2024 11:00 AM EST Office Visit [address], [place] [address] Donita Cornejo PA-C [address] [place] [address] [place] [address] Scheduled Procedures Name Priority Associated Diagnoses Date/Ti me COLONOSCOPY FLEXIBLE PROXIMA L DIAGNOSTIC Recall History of colonic polyps Health Maintenance Due Date Last Done Comments Hepatitis B Vaccine (1 of 3 - 19+ 3-dose series) 1991 Cologuard 2017 Fecal Occult Blood Test 2017 Sigmoidoscopy 2017 Influenza Vaccine (FLU shot) (#1) 2024 06/12/2023, 06/12/2023, 06/17/2022, Additional history exists GFR 08/04/2024 02/03/2024, 06/02/2024, 12/29/2023, Additional history exists Depression Screening 11/16/2024 11/17/2023 Albumin/Creatinine Ratio 11/20/202411/20/2 024, 10/28/2022, 10/12/2021 CKD PHOS USE SMARTSET 89118 11/20/2024 0412/2023, 12/01/2022, 10/12/2021, Additional history exists CKD HGB USE SMARTSET 13339 02/02/202502/02, 02/03/2024, 01/13/2024, Additional history exists Pneumococcal [...] this encounter Medical Devices Implanted Type Area Corporate Webmaster Device Identifier Shelf Expiration Date Model / Serial / Lot Implant Hi Prof Gel 750cc - [id number] Implanted:Qty: 1 on 07/02/2013 at [place] [facility] [place] Right: Breast MENTOR DARVIN 11/30/2013 350-7504BC / [id number] / [id number] Implant Hi Prof Gel 750cc - [id number] Implanted:Qty: 1 on 07/02/2013 at [place] [facility] [place] Left: Breast MENTOR DARVIN 04/01/2014 350-7504BC / [id number] / [id number] documented as of this encounter Visit Diagnoses Diagnosis Malignant neoplasm of overlapping sites of both breasts in female, estrogen receptor positive (HCC)- Primary documented in this encounter Advance Directives * [...] Directives occurred with: Not Discussed Care Teams Collective Bargaining Specialist Relationship Specialty Start Date End Date Susie White MD [address] [place] [address] PCP - General Internal Medicine 03/02/12 documented as of this encounter
--- OUTSIDE RECORDS SUMMARY | 2024-02-18 11:31 | External Medical Summary | Summary of Care ---
Author Name Unknown Organization [facility] Address [address] [place] [address] Phone [phone] Care Team Providers Care Hydraulic And Plumbing Installer Name Role Phone Susie White MD Primary Care Provider [phone] Reason for Visit * Reason Comments Medication Management Encounter Details Date Type Department Care Team (Late st Contact Info) Description 02/06/2024 9:30 AM EDT Pharmacy Pharmacy Hematology Oncology [facility] [address] [place] [address] [facility], [facility] Hem/Onc [address] [place] [address] Malignant neoplasm of overlapping sites of both breasts in female, estrogen receptor positive (HCC)* Allergies No known active allergiesdocumented as of this encounter (statuses as of 02/06/2024) Medications Medication Sig Dispensed Refills Start Date [...] as of this encounter (statuses as of 02/06/2024) Active Problems Problem Noted Date Diagnosed Date [...] as of this encounter (statuses as of 02/06/2024) Resolved Problems Problem Noted Date Diagnosed Date [...] CRC Name: Molly LIND Contact PI or ROLL ICER regarding any serious medical event, if new [...] PI CRC Name: Molly Chowdhury [facility] Contact PI or ROLL ICER regarding any serious medical event, if new Rx given, ER visit, hospitalization, or billing question Diagnosis changed due to Research Module. Go to Snapshot for study details. documented as of this encounter (statuses as of 02/06/2024) Immunizations Name Administration Dates Next Due COVID-19 [...] this encounter Progress Notes * Radha Toscano, [facility] - 02/06/2024 10:26 AM EDT MEDICATION THERAPY MANAGEMENT CAPIVASERTIB TREATMENT PROGRESS NOTE Shante Cordoba [phone] Patient Phone Numbers Preferred Lab: [facility]: [facility] Communication: Left message requesting return call to assess toleration to therapy Treatment: Medication: Capivasertib (Truqap) Indication/Staging/Diagnosis Code: Metastatic Breast Cancer, ER+, FL+, HER2-, PIK3CA mutation C50.811, C50.812, Z17.0 Dose: 400 mg twice daily (~12 hours apart) for 4 consecutive days, followed by 3 days off (administer capivasertib on days 1 to 4 of each week) Administration: +/- food Start Date: 12/19/23 Primary Flute Teacher/Oncologist: Dr. Yeimy Infante [id number] Study Additional Therapy: Fulvestrant Supportive Care Meds: Cetirizine Ondansetron Loperamide Urea Cream Treatment History: -S/P bilateral mastectomies followed by immediate reconstruction (April,) -Dose dense AC followed by weekly paclitaxel between 05/22/2012-11/01/2012 Adjuvant radiation treatment completed in January,. - had Zoladex -S/P bilateral oophorectomy in January, (no hysterectomy) -tamoxifen between January [id number] 2020. - Letrozole and ribociclib between 10/2019 [...] month Radha Toscano, PharmD, BCOP Clinical Pharmacist, [facility] Oral Chemotherapy [facility] 02/06/2024, 10:30 AM Monitoring Parameters: [...] Reference Range & Units 12/29/23 07:41 01/13/24 08:02/03/24 07:54 Glucose 70 - 120 mg/dL 85 81 87 Latest Reference Range & Units 12/29/23 07:41 01/13/24 08:02/03/24 07:54 WBC 4.00 - 10.80 K/uL 3.32 [...] Reference Range & Units 12/29/23 07:41 01/13/24 08:02/03/24 07:54 Albumin 3.8 - 5.0 g/dL 4.0 [...] Contact Info) Description 02/14/2024 10:00 AM EDT Immunization/Inject ion Hematology/[address], [address] [phone] [place], Chair 5 Hem Onc [facility] [address] [place] [address] 03/05/2024 9:30 AM EDT Pharmacy Pharmacy Hematology Oncology [place] [address] [place] [address] [facility], [facility] Hem/Onc [facility] [place] [address] 03/13/2024 10:00 AM EDT Immunization/Inject ion Hematology/Oncology [address], [address] [phone] Nurse, Med 4 [address] [place] [address] 03/13/2024 10:45 AM EDT Imaging Radiology [address], [address] [address] 04/10/2024 9:15 AM EDT Office Visit Hematology/Oncology [facility] G[place]le [place] [address] [place] [phone] Cory Infante MD [address] [place] [address] 04/10/2024 9:45 AM EDT Immunization/Inject ion Hematology/Oncology [address], [address] [phone] Nurse, Med 4 [address] [place] [address] 05/25/2024 10:40 AM EDT Office Visit General Internal Medicine [facility] [address] [facility] [place] [address] Susie White MD [address] [facility] [place] [address] 07/24/2024 11:00 AM EST [facility] [address] [facility], [place] [address] Donita Cornejo PA-C [address] [place] [address] [place] [address] Scheduled Procedures Name Priority Associated Diagnoses Date/Ti me COLONOSCOPY FLEXIBLE PROXIMA L DIAGNOSTIC Recall History of colonic polyps Health Maintenance Due Date Last Done Comments Hepatitis B (1 of 3 - 19+ 3-dose series) 1991 Cologuard 2017 Fecal Occult Blood Test 2017 Sigmoidoscopy 2017 Influenza Vaccine (FLU shot) (#1) 2024 06/12/2023, 06/12/2023, 06/17/2022, Additional history exists GFR 08/04/2024 02/03/2024, 06/0 02/2024, 12/29/2023, Additional history exists Depression Screening 11/16/2024 11/17/2023 Albumin/Creatinine Ratio 11/20/202411/20/2 024, 10/28/2022, 10/12/2021 CKD PHOS USE SMARTSET 17432 11/20/2024 0412/2023, 12/01/2022, 10/12/2021, Additional history exists CKD HGB USE SMARTSET 50564 02/02/202502/02, 02/03/2024, 01/13/2024, Additional history exists Pneumococcal [...] Completed 06/12/2023, , 02/02/2022, Additional history exists GARDASIL-HPV IMMUNIZATION SERIES Aged Out No longer eligible based on patient's age to complete this topic MENINGOCOCCAL (MENACTRA/MENVEO) Aged Out No longer eligible based on patient's age to complete this topic documented as of this encounter Medical Devices Implanted Type Area Assistant Customer Service Manager Device Identifier Shelf Expiration Date Model / Serial / Lot Implant Hi Prof Gel 750cc - [id number] Implanted:Qty: 1 on 07/02/2013 at OR [facility] Right: Breast MENTOR DARVIN 11/30/2013 350-7504BC / [id number] / [id number] Implant Hi Prof Gel 750cc - [id number] Implanted:Qty: 1 on 07/02/2013 at OR [facility] Left: Breast MENTOR DARVIN 04/01/2014 350-7504BC / [id number] / [id number] documented as of this encounter Visit Diagnoses [...] Directives occurred with: Not Discussed Care Teams Hydraulic And Plumbing Installer Relationship Specialty Start Date End Date Susie White MD [address] [place] [address] PCP - General Internal Medicine 03/02/12 documented as of this encounter
--- OUTSIDE RECORDS SUMMARY | 2024-02-18 11:31 | External Medical Summary | Summary of Care ---
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) Malignant neoplasm of overlapping sites of both breasts in female, estrogen receptor positive (HCC) Procedures [place] INJECTION, FULVESTRANT Cory Infante MD [address] [place] [address] [place] [address] Anc Hem/Onc [address] [address] Referral ID Status Reason Start Date Expiration Date V isits Requested Visits Authorized [id number] Authorized 09/16/2023 03/13/2024 [id number] Encounter Details Date Type Department Care Team (Late st Contact Info) Description 01/16/2024 9:00 AM EDT Immunization/I njection Hematology/Oncology Treatment, [address] [address] Gisele, Chair 3 Hem Onc [address] [place] [address] 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)*; 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); Malignant neoplasm of overlapping sites of both breasts in female, estrogen receptor positive (HCC) Allergies No known active allergiesdocumented as of this encounter (statuses as of 02/16/2024) Medications Medication Sig Dispensed Refills Start Date [...] as of this encounter (statuses as of 02/16/2024) Active Problems Problem Noted Date Diagnosed Date [...] as of this encounter (statuses as of 02/16/2024) Resolved Problems Problem Noted Date Diagnosed Date [...] PI CRC Name: Molly Chowdhury [facility] Contact PI or BEHAVIORAL MODIFICATION ASSISTANT regarding any serious medical event, if [...] PI CRC Name: Molly Chowdhury [facility] Contact PI or BEHAVIORAL MODIFICATION ASSISTANT regarding any serious medical event, if new Rx given, ER visit, hospitalization, or billing question Diagnosis changed due to Research Module. Go to Snapshot for study details. documented as of this encounter (statuses as of 02/16/2024) Immunizations Name Administration Dates Next Due COVID-19 [...] as of this encounter Nursing Notes * Ania Teague LPN - 01/16/2024 9:09 AM EDT Faslodex 500mg administered IM into the left and right dorsogluteal muscle (250mmg into right and 250mg into left) per standing order. Patient tolerated injection and will return in 1 months documented in this encounter Plan of Treatment Upcoming Encounters Date Type Department Care Team (Late st Contact Info) Description 02/23/2024 11:40 AM EDT Office Visit Dermatology, Radha Meraz [address] [place] [address] Daija Bailey PA-C [address] [place] [address] 03/01/2024 7:40 AM EDT Laboratory Laboratory, [address] [phone] [address] 03/05/2024 9:30 AM EDT Pharmacy Pharmacy Hematology Oncology [address] [address] [facility] Hem/Onc [address] [place] [address] 03/13/2024 10:45 AM EDT Imaging Radiology [facility] 1st [facility], [place] [address] [facility] [place] [address] 03/14/2024 8:30 AM EDT Immunization/Injecti on Hematology/Oncology Treatment, [place] 200 [facility] [place] [address] Nurse, Med [address] [place] [address] 04/10/2024 9:15 AM EDT [facility] [place] 200 [facility] [place] [address] Cory Infante MD [address] [facility] [address] [place], [place] [address] 04/10/2024 9:45 AM EDT Immunization/Injecti on Hematology/Oncology Treatment, [place] [address] [place], [place] [phone] Nurse, Med 200 [facility] [place] [address] 05/25/2024 10:40 AM EDT Office Visit General Internal Medicine [facility] [address] [facility] [place] [address] Susie White MD 200 [facility] [place] [address] 07/24/2024 11:00 AM EST Office Visit [address] [address] Donita Cornejo PA-C [address] [place] [address] [place] [address] Scheduled Procedures Name Priority Associated Diagnoses Date/Ti [...] 024, 10/28/2022, 10/12/2021 CKD PHOS USE SMARTSET 42125 11/20/2024 04/1 12/2023, 12/01/2022, 10/12/2021, Additional history exists CKD HGB USE SMARTSET 09177 02/02/202502/02, 02/03/2024, 01/13/2024, Additional history exists Pneumococcal [...] encounter Medical Devices Implanted Type Area Manager Printing Device Identifier Shelf Expiration Date Model / Serial / Lot Implant Hi Prof Gel 750cc - [id number] Implanted:Qty: 1 on 07/02/2013 at [place] [facility] Right: Breast MENTOR DARVIN 11/30/2013 350-7504BC / [id number] / [id number] Implant Hi Prof Gel 750cc - [id number] Implanted:Qty: 1 on 07/02/2013 at OR [facility] Left: Breast MENTOR DARVIN 04/01/2014 350-7504BC / [id number] / [id number] documented as of this encounter Visit Diagnoses [...] 500 mg 500 mg, Intramuscular, ONCE, On Tue01/16/24 at 1000, For 1 dose Given 01/16/2024 9:02 AM EDT 500 mg Dorsogluteal Left documented in this encounter Advance Directives * [...] Directives occurred with: Not Discussed Care Teams Customer Support Manager Relationship Specialty Start Date End Date Susie White MD 200 [facility] [place] [address] PCP - General Internal Medicine 03/02/12 documented as of this encounter
--- OUTSIDE RECORDS SUMMARY | 2024-02-18 11:32 | External Medical Summary ---
Author Name Unknown Address Unknown Organization K01:LABORATORY [facility] - [address] [facility] [address] Laboratory Report Ordering Provider Test Date Status RISA JENKINS 02/03/2024 07:54:41 Final Observation Date Value Abnormality Reference (Units ) Status WBC, Total 02/03/2024 07:54:41 3.76 Below low normal 4.00-10.80 (K/uL) Final RBC 02/03/2024 07:54:41 4.47 3.85-5.15 (M/uL) Final Hemoglobin 02/03/2024 07:54:41 13.5 12.0-15.3 (g/dL) Final HCT 02/03/2024 07:54:41 41.9 36.0-45.2 (%) Final MCV 02/03/2024 07:54:41 93.7 81.5-97.5 (fL) Final MCH 02/03/2024 07:54:41 30.2 27.0-34.0 (pg) Final MCHC 02/03/2024 07:54:41 32.2 32.0-36.0 (g/dL) Final RDW 02/03/2024 07:54:41 12.6 11.5-15.5 (%) Final Platelets 02/03/2024 07:54:41 272 140-400 (K/uL) Final MPV 02/03/2024 07:54:41 10.5 6.6-11.1 (fL) Final Nucleated erythrocytes/100 leukocytes [Ratio] in Blood by Automated count 02/03/2024 07:54:41 0 <=0 (/100 WBCs) Final Performing Location LABORATORY [facility] - [address] [place] [address]
--- OUTSIDE RECORDS SUMMARY | 2024-02-18 11:32 | External Medical Summary ---
Author Name Unknown Address Unknown Organization K01:[facility] [place] [address] [place] [address] Laboratory Report Ordering Provider Test Date Status RISA JENKINS 02/03/2024 07:54:41 Final Based on guidelines from [place] [employer]:
70-99 mg/dL Normal
100-125 mg/dL Pre-diabetes
>125 mg/dL Diabetes, diagnosis requires two abnormal diabetes diagnostic test results Observation Date Value Abnormality Reference (Units ) Status Fasting glucose [Moles/volume] in Serum or Plasma 02/03/2024 07:54:41 86 70-99 (mg/dL) Final Performing Location LABORATORY [facility] - [address] [place] [address]
--- OUTSIDE RECORDS SUMMARY | 2024-02-18 11:32 | External Medical Summary | Summary of Care ---
Author Name Unknown Organization [facility] Address [address] [place] [address] Phone [phone] Care Team Providers Care Air Brakes Inspector Name Role Phone Susie White MD Primary Care Provider [phone] Reason for Visit * Reason Onset Date Comments Patient Assistance Program 12/01/2023 Jaxson monroy Encounter Details Date Type Department Care Team (Late st Contact Info) Description 12/01/2023 Telephone Hematology/Oncology, [facility] [address] [facility] [place] [address] Clarence Patel MD [address] [place] [address] Patient Assistance Program (Ashley ) Allergies No known active allergiesdocumented as of this encounter (statuses as of 01/25/2024) Medications Medication Sig Dispensed Refills Start Date [...] every evening. 90 Tablet 2 11/17/2023 Active documented as of this encounter (statuses as of 01/25/2024) Active Problems Problem Noted Date Diagnosed Date [...] as of this encounter (statuses as of 01/25/2024) Resolved Problems Problem Noted Date Diagnosed Date [...] Name: Molly Chowdhury CRC Contact PI or TRACTOR DISTRIBUTOR regarding any serious medical event, if new [...] Name: Molly Chowdhury CRC Contact PI or TRACTOR DISTRIBUTOR regarding any serious medical event, if new Rx given, ER visit, hospitalization, or billing question Diagnosis changed due to Research Module. Go to Snapshot for study details. documented as of this encounter (statuses as of 01/25/2024) Immunizations Name Administration Dates Next Due COVID-19 [...] encounter Miscellaneous Notes * Telephone Encounter - Ashley Munoz OSA - 12/01/2023 11:10 AM EDT Patient Assistance Name of Medication: Truqap 200 mg tabs Was patient spoken to: : YES Type of assistance: [facility] are closed, over income for pharmacy [place]. Advised we could try free drug program through the ribbon blockmaker. Applications mailed: : YES, emailed application to [email or web address]. Follow up: 12/02/2023 Thank you, Ashley Munoz Medication Gluer Machine Setup Operator 12/01/2023, 11:11 AM * Telephone Encounter - Huma Uribe OSA - 12/01/2023 7:34 AM EDT GSP Patient Assistance Request: Medication name: TRUQAP 200 MG TABS Insurance? commercial Co-pay amount: 100.00 Action needed: new funding inquiry Target ship date (if applicable): N/A IF HEM/ONC: Confirm this encounter is routed to [facility]: Yes All other department requests should be flagged in referral. Confirm encounter department selected is for prescribing physician: Yes If URGENT: Send TEAMS message to appropriate foreign languages department chair (see "Patient Assistance Guide" - ROUTING POOLS:[facility] on shared drive): [] Urgent message sent to: Thank you, LEN Olson [facility] 12/01/2023,7:34 AM documented in this encounter Plan of Treatment Upcoming Encounters Date Type Department Care Team (Late st Contact Info) Description 01/30/2024 9:30 AM EDT Pharmacy Pharmacy Hematology Oncology [facility] [place] [address] [place] [address] [facility] Hem/Onc [address] [place] [address] 02/14/2024 10:00 AM EDT Immunization/Inject ion Hematology/Oncology Treatment, [place] [address] [place] [address] [place], Chair 3 Hem Onc [facility] [place] [address] 03/13/2024 10:00 AM EDT Immunization/Inject ion Hematology/Oncology Treatment, [place] [facility] [phone] Gisele, Chair 3 Hem Onc [facility] [address] [facility] [place] [address] 03/13/2024 10:45 AM EDT Imaging Radiology [facility] 1st [facility] [address] [facility] [place] [address] 04/10/2024 9:15 AM EDT Office Visit Hematology/Oncology [facility] 200 [facility] [place] [phone] Cory Infante MD 200 [facility] [place] [address] 04/10/2024 9:45 AM EDT Immunization/Inject ion Hematology/Oncology Treatment, [place] [facility] [phone] G[place]le, Chair 11 Hem Onc [address] [place] [address] 05/25/2024 10:40 AM EDT Office Visit General Internal Medicine [facility] 200 [facility] [place] [address] Susie White MD 200 [facility] [place] [address] 07/24/2024 11:00 AM EST Office Visit Dermat[address] [place] [address] Donita Cornejo PA-C [address] [place] [address] [place] [address] Scheduled Procedures Name Priority Associated Diagnoses Date/Ti me COLONOSCOPY FLEXIBLE PROXIMA L DIAGNOSTIC Recall History of colonic polyps Health Maintenance Due Date Last Done Comments Hepatitis B (1 of 3 - 19+ 3-dose series) 1991 Cologuard 2017 Fecal Occult Blood Test 2017 Sigmoidoscopy 2017 GFR 07/14/2024 01/13/2024, 12/07, 11/21/2023, Additional history exists Depression Screening 11/16/2024 11/17/2023 Albumin/Creatinine Ratio 11/20/2024 024, 10/28/2022, 10/12/2021 CKD PHOS USE SMARTSET 19752 11/20/2024 0412/2023, 12/01/2022, 10/12/2021, Additional history exists CKD HGB USE SMARTSET 16286 01/12/202501/12, 01/13/2024, 12/29/2023, Additional history exists Pneumococcal Vaccine: Pediatrics (0 to 5 Years) and At-Risk Patients (6 to 64 Years) (3 of 3 - PPSV23 or PCV20) 10/01/2026 10/01/2021, 05/26/2020 Diabetes Screening 01/12/2027 01/13/2024, 0 01/13/2024, 01/13/2024, Additional history exists Colonoscopy 05/09/2028 05/09/2023, [...] Completed 06/12/2023, 06/12/2023, 06/17/2022, Additional history exists GARDASIL-HPV IMMUNIZATION SERIES Aged Out No longer eligible based on patient's age to complete this topic MENINGOCOCCAL (MENACTRA/MENVEO) Aged Out No longer eligible based on patient's age to complete this topic documented as of this encounter Medical Devices Implanted Type Area Cable Television Access Coordinator Device Identifier Shelf Expiration Date Model / Serial / Lot Implant Hi Prof Gel 750cc - [id number] Implanted:Qty: 1 on 07/02/2013 at OR [facility] Right: Breast MENTOR DARVIN 11/30/2013 350-7504BC / [id number] / [id number] Implant Hi Prof Gel 750cc - [id number] Implanted:Qty: 1 on 07/02/2013 at OR [facility] Left: Breast MENTOR DARVIN 04/01/2014 350-7504BC / [id number] / [id number] documented as of this encounter Advance Directives * Full Code [...] Directives occurred with: Not Discussed Care Teams Air Brakes Inspector Relationship Specialty Start Date End Date Susie White MD [address] [place] [address] PCP - General Internal Medicine 03/02/12 documented as of this encounter
--- OUTSIDE RECORDS SUMMARY | 2024-02-18 11:32 | External Medical Summary | Summary of Care ---
Author Name Unknown Organization [facility] Address [address] [place] [address] Phone [phone] Care Team Providers Care Concert Pianist Name Role Phone Susie White MD Primary Care Provider [phone] Reason for Visit * Reason Comments Outpatient Testing Encounter Details Date Type Department Care Team (Late st Contact Info) Description 02/03/2024 7:40 AM EDT Laboratory Laboratory, [place] [address] [place] [address] [place], [facility] [address] [place] [address] Malignant neoplasm of overlapping sites of both breasts in female, estrogen receptor positive (HCC) Allergies No known active allergiesdocumented as of this encounter (statuses as of 02/03/2024) Medications Medication Sig Dispensed Refills Start Date [...] as of this encounter (statuses as of 02/03/2024) Active Problems Problem Noted Date Diagnosed Date [...] as of this encounter (statuses as of 02/03/2024) Resolved Problems Problem Noted Date Diagnosed Date [...] CRC Name: Molly LIND Contact PI or THERAPY TECHNICIAN regarding any serious medical event, if [...] Infante MD PI CRC Name: Molly Chowdhury [facility] Contact PI or THERAPY TECHNICIAN regarding any serious medical event, if new Rx given, ER visit, hospitalization, or billing question Diagnosis changed due to Research Module. Go to Snapshot for study details. documented as of this encounter (statuses as of 02/03/2024) Immunizations Name Administration Dates Next Due COVID-19 [...] 9:30 AM EDT Pharmacy Pharmacy Hematology Oncology [facility] [address] [place] [address] [facility], [facility] Hem/Onc [address] [place] [address] 02/14/2024 10:00 AM EDT Immunization/Inject ion Hematology/Oncology Treatment, [place] 200 [facility], [place] [phone] Park, Chair 5 Hem Onc [address] [place] [address] 03/13/2024 10:00 AM EDT Immunization/Inject ion Hematology/Oncology Treatment, [address], [place] [phone] Nurse, Med 4 200 [facility] [place] [address] 03/13/2024 10:45 AM EDT Imaging Radiology [address], [place] 132 [facility] [place] [address] 04/10/2024 9:15 AM EDT Office Visit Hematology/Oncology [address] [place] [phone] Cory Infante MD [address] [place] [address] [place] [address] 04/10/2024 9:45 AM EDT Immunization/Inject ion Hematology/Oncology Treatment, [address], [place] [phone] Nurse, Med 4 200 [facility] [place] [address] 05/25/2024 10:40 AM EDT Office Visit General Internal Medicine [facility] 200 [facility] [place], [place] [address] Susie White MD 200 [facility] [place] [address] 07/24/2024 11:00 AM EST Office Visit Dermatology[address] [phone] Donita Cornejo PA-C [address] [place] [address] [place] [address] Pending Results Name Type Priority Associated Diagnoses Date /Time GLUCOSE, FASTING PLASMA Lab Routine Malignant neoplasm of overlapping sites of both breasts in female, estrogen receptor positive (HCC) 02/03/2024 7:54 AM EDT COMPREHENSIVE METABOLIC PANEL Lab Routine Malignant neoplasm of overlapping sites of both breasts in female, estrogen receptor positive (HCC) 02/03/2024 7:54 AM EDT CBC WITH WBC DIFFERENTIAL Lab Routine Malignant neoplasm of overlapping sites of both breasts in female, estrogen receptor positive (HCC) 02/03/2024 7:54 AM EDT CBC Lab Routine Malignant neoplasm of overlapping sites of both breasts in female, estrogen receptor positive (HCC) 02/03/2024 7:54 AM EDT DIFFERENTIAL, AUTOMATED Lab Routine Malignant neoplasm of overlapping sites of both breasts in female, estrogen receptor positive (HCC) 02/03/2024 7:54 AM EDT Scheduled Procedures Name Priority Associated [...] 024, 10/28/2022, 10/12/2021 CKD PHOS USE SMARTSET 61265 11/20/2024 0412/2023, 12/01/2022, 10/12/2021, Additional history exists CKD HGB USE SMARTSET 87280 01/12/202501/12, 01/13/2024, 12/29/2023, Additional history exists Pneumococcal Vaccine: Pediatrics (0 to 5 Years) and At-Risk Patients (6 to 64 Years) (3 of 3 - PPSV23 or PCV20) 10/01/2026 10/01/2021, 05/26/2020 Diabetes Screening 01/12/2027 01/13/2024, 0 01/13/2024, 01/13/2024, Additional history exists Colonoscopy 05/09/2028 05/09/2023, 05/09/2023 Colorectal Cancer Screening 05/09/2028 Lipid Panel 11/20/2028 11/21/2023, 0401/2023, 10/12/2021, Additional history exists DTaP,Tdap,and Td Vaccines [...] this encounter Medical Devices Implanted Type Area Brake Repair Supervisor Device Identifier Shelf Expiration Date Model / Serial / Lot Implant Hi Prof Gel 750cc - [id number] Implanted:Qty: 1 on 07/02/2013 [place] [facility] [place]: Breast MENTOR DARVIN 11/30/2013 350-7504BC / [id number] / [id number] Implant Hi Prof Gel 750cc - [id number] Implanted:Qty: 1 on 07/02/2013 at [place] [facility] [place] Left: Breast MENTOR DARVIN 04/01/2014 350-7504BC / [id number] / [id number] documented as of this encounter Visit Diagnoses Diagnosis Malignant neoplasm of overlapping sites of both breasts in female, estrogen receptor positive (HCC) documented in this encounter Advance Directives * [...] Directives occurred with: Not Discussed Care Teams Concert Pianist Relationship Specialty Start Date End Date Susie White MD 200 [place] [address] PCP - General Internal Medicine 03/02/12 documented as of this encounter
--- OUTSIDE RECORDS SUMMARY | 2024-02-18 11:32 | External Medical Summary | Summary of Care ---
Author Name Unknown Organization [facility] Address [address] [place] [address] Phone [phone] Care Team Providers Care Floor Helper Name Role Phone Susie White MD Primary Care Provider [phone] Reason for Visit * Reason Comments Medication Management Encounter Details Date Type Department Care Team (Late st Contact Info) Description 01/06/2024 9:45 AM EDT Pharmacy Pharmacy Hematology Oncology [facility] [address] [place] [address] [facility], [facility] Hem/Onc [address] [place] [address] Malignant neoplasm of overlapping sites of both breasts in female, estrogen receptor positive (HCC)* Allergies No known active allergiesdocumented as of this encounter (statuses as of 01/06/2024) Medications Medication Sig Dispensed Refills Start Date [...] as of this encounter (statuses as of 01/06/2024) Active Problems Problem Noted Date Diagnosed Date [...] as of this encounter (statuses as of 01/06/2024) Resolved Problems Problem Noted Date Diagnosed Date [...] CRC Name: Molly LIND Contact PI or RESEARCH LAB ASSISTANT regarding any serious medical event, if [...] Infante MD PI CRC Name: Molly Chowdhury [facility] Contact PI or RESEARCH LAB ASSISTANT regarding any serious medical event, if new Rx given, ER visit, hospitalization, or billing question Diagnosis changed due to Research Module. Go to Snapshot for study details. documented as of this encounter (statuses as of 01/06/2024) Immunizations Name Administration Dates Next Due COVID-19 [...] Progress Notes * Radha Toscano, [facility] - 01/06/2024 2:13 PM EDT MEDICATION THERAPY MANAGEMENT CAPIVASERTIB TREATMENT PROGRESS NOTE Shante Cordoba [phone] Patient Phone Numbers Preferred Lab: [facility]: [facility] Communication: Left message requesting return call to assess toleration to therapy Treatment: Medication: Capivasertib (Truqap) Indication/Staging/Diagnosis Code: Metastatic Breast Cancer, ER+, HI+, HER2-, PIK3CA mutation C50.811, C50.812, Z17.0 Dose: 400 mg twice daily (~12 hours apart) for 4 consecutive days, followed by 3 days off (administer capivasertib on days 1 to 4 of each week) Administration: +/- food Start Date: 12/19/23 Primary Central Office Installer/Oncologist: Dr. Yeimy Infante [facility]-291 Study Additional Therapy: Fulvestrant Supportive Care Meds: Cetirizine Ondansetron Loperamide Urea Cream Treatment History: -S/P bilateral mastectomies followed by immediate reconstruction (April,) -Dose dense AC followed by weekly paclitaxel between 05/22/2012-11/01/2012 Adjuvant radiation treatment completed in January,. - had Zoladex -S/P bilateral oophorectomy in January, (no hysterectomy) -tamoxifen between January [id number]-Aokis 2020. - Letrozole and ribociclib between 10/2019 -09/2023 (discontinued because of disease progression mainly in the abdomen Interval History: N/A Changes to medication list since last visit? No Assessment and Plan: LM requesting call back to assess tolerability Reminded pt to obtain fasting labs prior to OV 01/16/24 Assessment of compliance: N/A Assessment of adverse effects attributed to drug therapy: N/A Dose adjustment needed based on lab or adverse drug reaction? No Follow up: 01/15 OV/labs; 01/29 MTM with labs Radha Toscano, PharmD, BCOP Clinical Pharmacist, [facility] Oral Chemotherapy [facility] 01/06/2024, 3:57 PM Monitoring Parameters: Estimated CrCl Serum creatinine: 1.3 mg/dL (H) 12/29/23 0741 Estimated creatinine clearance: 53 mL/min (A) Hepatitis [...] Parameters Please refer to PI Pertinent Labs: N/A Time Spent on Encounter: < 5 minutes documented in this encounter Plan of Treatment Upcoming Encounters Date Type Department Care Team (Late st Contact Info) Description 01/16/2024 8:30 AM EDT Office Visit Hematology/Oncology [facility] [place] [address] [place] [address] Gabriela oNrris CRNP [address] [place], [place] [address] [address] 01/16/2024 9:00 AM EDT Immunization/Inject ion Hematology/Oncology Treatment, [place] [address] [place] [phone] Gisele, Chair 3 Hem Onc [facility] 200 [facility] [place] [address] 01/30/2024 9:30 AM EDT Pharmacy Pharmacy Hematology Oncology [facility] [address] [place] [address] [facility] Hem/Onc [address] [place] [address] 03/13/2024 10:45 AM EDT Imaging Radiology [facility], [place] 132 [facility] [place] [address] 05/25/2024 10:40 AM EDT Office Visit General Internal Medicine [facility] 200 [facility] [place] [address] Susie White MD 200 [facility] [place] [address] 07/24/2024 11:00 AM EST Office Visit Dermatology[address] [address] Donita Cornejo PA-C [address] [place] [address] [place] [address] Scheduled Procedures Name Priority Associated Diagnoses Date/Ti me COLONOSCOPY FLEXIBLE PROXIMA L DIAGNOSTIC Recall History of colonic polyps Health Maintenance Due Date Last Done Comments Hepatitis B (1 of 3 - 19+ 3-dose series) 1991 Cologuard 2017 Fecal Occult Blood Test 2017 Sigmoidoscopy 2017 GFR 06/30/2024 12/29/2023, 11/06, 07/18/2023, Additional history exists Depression Screening 11/16/2024 11/17/2023 Albumin/Creatinine Ratio 11/20/2024 024, 10/28/2022, 10/12/2021 CKD PHOS USE SMARTSET 72469 11/20/202411/06, 12/01/2022, 10/12/2021, Additional history exists CKD HGB USE SMARTSET 80304 12/28/202412/28, 12/29/2023, 11/21/2023, Additional history exists Pneumococcal Vaccine: Pediatrics (0 to 5 Years) and At-Risk Patients (6 to 64 Years) (3 of 3 - PPSV23 or PCV20) 10/01/2026 10/01/2021, 05/26/2020 Diabetes Screening 12/28/2026 12/29/2023, 0 12/29/2023, 12/29/2023, Additional history exists Colonoscopy 05/09/2028 05/09/2023, 05/09/2023 [...] this encounter Medical Devices Implanted Type Area Insights Strategist Device Identifier Shelf Expiration Date Model / Serial / Lot Implant Hi Prof Gel 750cc - [id number] Implanted:Qty: 1 on 07/02/2013 at [place] [facility] [place] Right: Breast MENTOR DARVIN 11/30/2013 [id number] / [id number] / [id number] Implant Hi Prof Gel 750cc - [id number] Implanted:Qty: 1 on 07/02/2013 at [facility] Left: Breast MENTOR DARVIN 04/01/2014 350-7504BC / [id number] / [id number] documented as of this encounter Visit Diagnoses [...] Directives occurred with: Not Discussed Care Teams Floor Helper Relationship Specialty Start Date End Date Susie White MD 200 [place] [address] PCP - General Internal Medicine 03/02/12 documented as of this encounter
--- OUTSIDE RECORDS SUMMARY | 2024-02-18 11:32 | External Medical Summary ---
Author Name Unknown Address Unknown Organization [id number]:[facility]ORY [facility] [place] [address] [facility] [place] [address] Laboratory Report Ordering Provider Test Date Status RISA JENKINS 01/13/2024 08:16:22 Final Observation Date Value Abnormality Reference (Units ) Status SYNC LEUKOCYTES IN BLOOD BY AUTOMATED COUNT 01/13/2024 08:16:22 3.16 Below low normal 4.00-10.80 (K/uL) Final Segs 01/13/2024 08:16:22 50.6 40.0-75.0 (%) Final Lymphs % 01/13/2024 08:16:22 34.5 18.0-42.0 (%) Final Monos 01/13/2024 08:16:22 9.2 1.0-11.0 (%) Final Eosinophils 01/13/2024 08:16:22 4.1 0.0-6.0 (%) Final Basos 01/13/2024 08:16:22 1.6 0.0-2.0 (%) Final Immature Granulocyte, Percent 01/13/2024 08:16:22 0.0 0.0-2.0 (%) Final Absolute Segs 01/13/2024 08:16:22 1.60 Below low normal 1.80-7.70 (K/uL) Final Lymphs, absolute 01/13/2024 08:16:22 1.09 1.00-4.80 (K/ul) Final Monos, Abs 01/13/2024 08:16:22 0.29 0.00-1.10 (K/uL) Final Eos, Abs 01/13/2024 08:16:22 0.13 0.00-0.70 (K/uL) Final Basos, Abs 01/13/2024 08:16:22 0.05 0.00-0.20 (K/uL) Final Immature Granulocytes, Number 01/13/2024 08:16:22 0.00 0.00-0.20 (K/uL) Final Performing Location LAB[facility]ORY [facility] [place] [address] [facility] [address]
--- OUTSIDE RECORDS SUMMARY | 2024-02-18 11:32 | External Medical Summary | Summary of Care ---
Author Name Unknown Organization [facility] Address [address] [place] [address] Phone [phone] Care Team Providers Care Membership Advisor Name Role Phone Susie White MD Primary Care Provider Encounter Details Date Type Department Care Team (Late st Contact Info) Description 01/09/2024 Telephone Hematology/Oncology [facility] J[facility] [place] [address] [place] [address] Cory Infante MD [address] [facility] [address] Allergies No known active allergiesdocumented as of this encounter (statuses as of 01/09/2024) Medications Medication Sig Dispensed Refills Start Date [...] as of this encounter (statuses as of 01/09/2024) Active Problems Problem Noted Date Diagnosed Date [...] as of this encounter (statuses as of 01/09/2024) Resolved Problems Problem Noted Date Diagnosed Date [...] Name: Molly Chowdhury CRC Contact PI or SAND CONTROL WORKER regarding any serious medical event, if [...] Infante MD PI CRC Name: Molly Luciana [facility] Contact PI or SAND CONTROL WORKER regarding any serious medical event, if new Rx given, ER visit, hospitalization, or billing question Diagnosis changed due to Research Module. Go to Snapshot for study details. documented as of this encounter (statuses as of 01/09/2024) Immunizations Name Administration Dates Next Due COVID-19 [...] encounter Miscellaneous Notes * Telephone Encounter - Vicky Bazzi, stemming machine operator - 01/09/2024 12:05 PM EDT MEDICATION THERAPY MANAGEMENT Capivasertib (Truqap) TREATMENT STATUS NOTE Shante Cordoba [id number] Patient Phone Numbers Communication: Spoke to Caller Treatment: Medication: Capivasertib (Truqap) Indication/Staging/Diagnosis Code: Metastatic Breast Cancer, ER+, OH+, HER2-, PIK3CA mutation C50.811, C50.812, Z17.0 Dose: 400 mg twice daily (~12 hours apart) for 4 consecutive days, followed by 3 days off (administer capivasertib on days 1 to 4 of each week) Administration: +/- food Start Date: 12/19/23 Primary Senior Ui Ux Developer/Oncologist: Dr. Yeimy Infante Caller: Patient Incoming Request: Returning missed call from oral chemo clinic:Toxicity check Action: Sent telephone encounter to pharmacist for follow-up Additional Notes: Patient had a couple small mouth sores last week that have almost completed resolved. She scheduled her fasting lab work - 6/7/24 @ 7:50am. Vicky Bazzi, stemming machine operator Master Of Ceremonies Hematology Oncology Oral Chemotherapy Clinic Medication Therapy Disease Management [facility] 01/09/24,12:06 PM Time Spent on Encounter: 6 - 10 minutes documented in this encounter Plan of Treatment Upcoming Encounters Date Type Department Care Team (Late st Contact Info) Description 01/13/2024 7:50 AM EDT Laboratory Laboratory, [place] [address] [place] [phone] [facility] [address] [place] [address] 01/16/2024 8:30 AM EDT Office Visit Hematology/Oncology [address] [place] [address] Gabriela Norris CRNP 400 [facility] [place] [address] 01/16/2024 9:00 AM EDT Immunization/Injecti on Hematology/Oncology Treatment, [place] 200 [facility] [place] [address] Gisele, Chair 3 Hem Onc [address] [place] [address] 01/30/2024 9:30 AM EDT Pharmacy Pharmacy Hematology Oncology [facility] [address] [place] [facility] [place] [address] [facility], [facility] Hem/Onc [address] [place] [address] 03/13/2024 10:45 AM EDT Imaging Radiology [address], [place] [address] [facility] [place] [address] 05/25/2024 10:40 AM EDT Office Visit General Internal Medicine [facility] [address] [place] [address] Susie White MD [address] [place] [address] 07/24/2024 11:00 AM EST Office Visit [facility] [address] [facility], [place] [address] Donita Cornejo, AUTUMN [address] [place] [address] [place] [address] Scheduled Procedures Name Priority Associated Diagnoses Date/Ti [...] 024, 10/28/2022, 10/12/2021 CKD PHOS USE SMARTSET 55025 11/20/202411/06, 12/01/2022, 10/12/2021, Additional history exists CKD HGB USE SMARTSET 55624 12/28/202412/28, 12/29/2023, 11/21/2023, Additional history exists Pneumococcal [...] this encounter Medical Devices Implanted Type Area Railway Engineer Device Identifier Shelf Expiration Date Model / Serial / Lot Implant Hi Prof Gel 750cc - [id number] Implanted:Qty: 1 on 07/02/2013 at [place] Right: Breast MENTOR DARVIN 11/30/2013 350-7504BC / [id number] / [id number] Implant Hi Prof Gel 750cc - [id number] Implanted:Qty: 1 on 07/02/2013 at [facility] Left: Breast MENTOR DARVIN 04/01/2014 350-7504BC / [id number] / [id number] documented as of this encounter Advance Directives [...] Directives occurred with: Not Discussed Care Teams Membership Advisor Relationship Specialty Start Date End Date Susie White MD [address] [place] [address] PCP - General Internal Medicine 03/02/12 documented as of this encounter
--- OUTSIDE RECORDS SUMMARY | 2024-02-18 11:32 | External Medical Summary ---
Author Name Unknown Address Unknown Organization K01:LABORATORY [facility] [place] - [address] [facility] [place] [address] Laboratory Report Ordering Provider Test Date Status RISA JENKINS 02/03/2024 07:54:41 Final Observation Date Value Abnormality Reference (Units ) Status SYNC LEUKOCYTES IN BLOOD BY AUTOMATED COUNT 02/03/2024 07:54:41 3.76 Below low normal 4.00-10.80 (K/uL) Final Segs 02/03/2024 07:54:41 50.8 40.0-75.0 (%) Final Lymphs % 02/03/2024 07:54:41 34.6 18.0-42.0 (%) Final Monos 02/03/2024 07:54:41 9.3 1.0-11.0 (%) Final Eosinophils 02/03/2024 07:54:41 3.2 0.0-6.0 (%) Final Basos 02/03/2024 07:54:41 1.6 0.0-2.0 (%) Final Immature Granulocyte, Percent 02/03/2024 07:54:41 0.5 0.0-2.0 (%) Final Absolute Segs 02/03/2024 07:54:41 1.91 1.80-7.70 (K/uL) Final Lymphs, absolute 02/03/2024 07:54:41 1.30 1.00-4.80 (K/ul) Final Monos, Abs 02/03/2024 07:54:41 0.35 0.00-1.10 (K/uL) Final Eos, Abs 02/03/2024 07:54:41 0.12 0.00-0.70 (K/uL) Final Basos, Abs 02/03/2024 07:54:41 0.06 0.00-0.20 (K/uL) Final Immature Granulocytes, Number 02/03/2024 07:54:41 0.02 0.00-0.20 (K/uL) Final Performing Location LABORATORY [facility] - [address] [facility] [address]
--- OUTSIDE RECORDS SUMMARY | 2024-02-18 11:32 | External Medical Summary ---
Author Name Unknown Address Unknown Organization K01:LABORATORY [facility] [place] - [address] [place] [address] Laboratory Report Ordering Provider Test Date Status RISA JENKINS 01/13/2024 08:16:22 Final Based on guidelines from [place] [employer]:
70-99 mg/dL Normal
100-125 mg/dL Pre-diabetes
>125 mg/dL Diabetes, diagnosis requires two abnormal diabetes diagnostic test results Observation Date Value Abnormality Reference (Units ) Status Fasting glucose [Moles/volume] in Serum or Plasma 01/13/2024 08:16:22 83 70-99 (mg/dL) Final Performing Location LABORATORY [facility] - [address] [place] [address]
--- OUTSIDE RECORDS SUMMARY | 2024-02-18 11:32 | External Medical Summary ---
Author Name Unknown Address Unknown Organization K01:[facility]ORY [facility] [place] - [address] [facility] [place] [address] Laboratory Report Ordering Provider Test Date Status RISA JENKINS 01/13/2024 08:16:22 Final Observation Date Value Abnormality Reference (Units ) Status BUN 01/13/2024 08:16:22 24 Above high normal 6-20 (mg/dL) Final Creatinine 01/13/2024 08:16:22 1.3 Above high normal 0.5-1.0 (mg/dL) Final Glomerular filtration rate/1.73 sq M.predicted [Volume Rate/Area] in Serum, Plasma or Blood by Creatinine-based formula (CKD-EPI) 01/13/2024 08:16:22 48 Below low normal >=60 (mL/min) Final eGFR is calculated based on the CKD-EPI 2020 equation Sodium 01/13/2024 08:16:22 141 135-146 (m mol/L) Final Potassium 01/13/2024 08:16:22 4.6 3.5-5.1 (m mol/L) Final Cl 01/13/2024 08:16:22 106 98-107 (mm ol/L) Final CO2 01/13/2024 08:16:22 24 22-32 (mmo l/L) Final Anion gap 01/13/2024 08:16:22 11 7-15 (mmol /L) Final Glucose 01/13/2024 08:16:22 81 70-120 (mg /dL) Final Albumin 01/13/2024 08:16:22 4.1 3.8-5.0 (g /dL) Final AST (Aspartate aminotransferase) 01/13/2024 08:16:22 22 10-35 (U/L) Final Alk Phos 01/13/2024 08:16:22 49 35-130 (U/ L) Final Bilirubin, Total 01/13/2024 08:16:22 0.2 <=1 .2 (mg/dL) Final Calcium 01/13/2024 08:16:22 9.8 8.4-10.2 ( mg/dL) Final Protein 01/13/2024 08:16:22 6.0 6.0-8.3 (g /dL) Final ALT (Alanine aminotransferase) 01/13/2024 08:16:22 21 10-35 (U/L) Final Performing Location LABORATORY [facility] [place] - [address] [facility] [address]
--- OUTSIDE RECORDS SUMMARY | 2024-02-18 11:32 | External Medical Summary ---
Author Name Unknown Address Unknown Organization K01:LABORATORY [facility] [place] - [address] [place] [address] Laboratory Report Ordering Provider Test Date Status RISA JENKINS 01/13/2024 08:16:22 Final Observation Date Value Abnormality Reference (Units ) Status HbA1C 01/13/2024 08:16:22 5.2 4.0-5.6 (% ) Final The use of HbA1c to monitor glycemic status is based on normal hemoglobin and HbA composition. This test should not be used in patients with abnormal hemoglobin that affects the half life of the red blood cell or the in vivo glycation rates. Glucose, estimated average 01/13/2024 08:16:22 103 <126 (mg/dL) Final Performing Location LABORATORY [facility] [place] [facility] [address] [facility] [address]
--- OUTSIDE RECORDS SUMMARY | 2024-02-18 11:32 | External Medical Summary ---
Author Name Unknown Address Unknown Organization K01:[facility] [place] [address] [facility] [place] [address] Laboratory Report Ordering Provider Test Date Status RISA JENKINS 02/03/2024 07:54:41 Final Observation Date Value Abnormality Reference (Units ) Status BUN 02/03/2024 07:54:41 22 Above high normal 6-20 (mg/dL) Final Creatinine 02/03/2024 07:54:41 1.3 Above high normal 0.5-1.0 (mg/dL) Final Glomerular filtration rate/1.73 sq M.predicted [Volume Rate/Area] in Serum, Plasma or Blood by Creatinine-based formula (CKD-EPI) 02/03/2024 07:54:41 52 Below low normal >=60 (mL/min) Final eGFR is calculated based on the CKD-EPI 2020 equation Sodium 02/03/2024 07:54:41 141 135-146 (m mol/L) Final Potassium 02/03/2024 07:54:41 4.5 3.5-5.1 (m mol/L) Final Cl 02/03/2024 07:54:41 105 98-107 (mm ol/L) Final CO2 02/03/2024 07:54:41 24 22-32 (mmo l/L) Final Anion gap 02/03/2024 07:54:41 12 7-15 (mmol /L) Final Glucose 02/03/2024 07:54:41 87 70-120 (mg /dL) Final Albumin 02/03/2024 07:54:41 4.0 3.8-5.0 (g /dL) Final AST (Aspartate aminotransferase) 02/03/2024 07:54:41 25 10-35 (U/L) Final Alk Phos 02/03/2024 07:54:41 52 35-130 (U/ L) Final Bilirubin, Total 02/03/2024 07:54:41 0.2 <=1 .2 (mg/dL) Final Calcium 02/03/2024 07:54:41 9.6 8.4-10.2 ( mg/dL) Final Protein 02/03/2024 07:54:41 6.1 6.0-8.3 (g /dL) Final ALT (Alanine aminotransferase) 02/03/2024 07:54:41 26 10-35 (U/L) Final Performing Location [facility] [place] [facility] N Adolfo Serrano. [facility] [address]
--- OUTSIDE RECORDS SUMMARY | 2024-02-18 11:32 | External Medical Summary | Summary of Care ---
Author Name Unknown Organization [facility] Address [address] [place] [address] Phone [phone] Care Team Providers Care Head Operator Name Role Phone Susie White MD Primary Care Provider [phone] Reason for Visit * Reason Comments Outpatient Testing Encounter Details Date Type Department Care Team (Late st Contact Info) Description 01/13/2024 7:50 AM EDT Laboratory Laboratory, [place] [address] [place] [address] [place] [address] [place] [address] Malignant neoplasm of overlapping sites of both breasts in female, estrogen receptor positive (HCC) Allergies No known active allergiesdocumented as of this encounter (statuses as of 01/13/2024) Medications Medication Sig Dispensed Refills Start Date [...] as of this encounter (statuses as of 01/13/2024) Active Problems Problem Noted Date Diagnosed Date [...] as of this encounter (statuses as of 01/13/2024) Resolved Problems Problem Noted Date Diagnosed Date [...] CRC Name: Molly LIND Contact PI or VICE PRESIDENT OF CONTRACTS regarding any serious medical event, if new [...] Infante MD PI CRC Name: Molly Chowdhury [facility] Contact PI or VICE PRESIDENT OF CONTRACTS regarding any serious medical event, if new Rx given, ER visit, hospitalization, or billing question Diagnosis changed due to Research Module. Go to Snapshot for study details. documented as of this encounter (statuses as of 01/13/2024) Immunizations Name Administration Dates Next Due COVID-19 [...] 01/16/2024 8:30 AM EDT Office Visit Hematology/Oncology [facility] G[place]le [place] [address] [place] [phone] Gabriela Norris CRNP [address] [place] [address] [place] [address] 01/16/2024 9:00 AM EDT Immunization/Inject ion Hematology/Oncology Treatment, [place] [address] [place] [phone] Gisele, Chair 3 Hem Onc [address] [place] [address] 01/30/2024 9:30 AM EDT Pharmacy Pharmacy Hematology Oncology [address] [address] [facility] [place] [facility] Hem[facility]Onc [address] [facility] [address] 03/13/2024 10:45 AM EDT Imaging Radiology [facility] 1st [facility], [place] [address] [facility] [place] [address] 05/25/2024 10:40 AM EDT Office Visit General Internal Medicine [facility] [address] [facility] [place] [address] Susie White MD [address] [place] [address] 07/24/2024 11:00 AM EST Office Visit [address] [address] Donita Cornejo PA-Favio [address] [place] [address] [place] [address] Pending Results Name Type Priority Associated Diagnoses Date /Time HEMOGLOBIN A1C Lab Routine Malignant neoplasm of overlapping sites of both breasts in female, estrogen receptor positive (HCC) 01/13/2024 8:16 AM EDT GLUCOSE, FASTING PLASMA Lab Routine Malignant neoplasm of overlapping sites of both breasts in female, estrogen receptor positive (HCC) 01/13/2024 8:16 AM EDT COMPREHENSIVE METABOLIC PANEL Lab Routine Malignant neoplasm of overlapping sites of both breasts in female, estrogen receptor positive (HCC) 01/13/2024 8:16 AM EDT CBC WITH WBC DIFFERENTIAL Lab Routine Malignant neoplasm of overlapping sites of both breasts in female, estrogen receptor positive (HCC) 01/13/2024 8:16 AM EDT CBC Lab Routine Malignant neoplasm of overlapping sites of both breasts in female, estrogen receptor positive (HCC) 01/13/2024 8:16 AM EDT DIFFERENTIAL, AUTOMATED Lab Routine Malignant neoplasm of overlapping sites of both breasts in female, estrogen receptor positive (HCC) 01/13/2024 8:16 AM EDT Scheduled Procedures Name Priority Associated [...] 024, 10/28/2022, 10/12/2021 CKD PHOS USE SMARTSET 89853 11/20/202411/06, 12/01/2022, 10/12/2021, Additional history exists CKD HGB USE SMARTSET 20615 12/28/202412/28, 12/29/2023, 11/21/2023, Additional history exists Pneumococcal [...] this encounter Medical Devices Implanted Type Area Forming And Assembling Supervisor Device Identifier Shelf Expiration Date Model / Serial / Lot Implant Hi Prof Gel 750cc - [id number] Implanted:Qty: 1 on 07/02/2013 at [place] [facility] [place] Right: Breast MENTOR DARVIN 11/30/2013 350-7504BC / [id number] / [id number] Implant Hi Prof Gel 750cc - [id number] Implanted:Qty: 1 on 07/02/2013 at OR [facility] Left: Breast MENTOR DARVIN 04/01/2014 350-7504BC / [id number] / [id number] documented as of this encounter Visit Diagnoses [...] Directives occurred with: Not Discussed Care Teams Head Operator Relationship Specialty Start Date End Date Susie White MD [address] [place] [address] [place] [address] PCP - General Internal Medicine 03/02/12 documented as of this encounter
--- OUTSIDE RECORDS SUMMARY | 2024-02-18 11:32 | External Medical Summary | Summary of Care ---
Author Name Unknown Organization [facility] Address [address] [facility] [place] [address] Phone [phone] Care Team Providers Care Sales Professional Name Role Phone Susie White MD Primary Care Provider [phone] Encounter Details Date Type Department Care Team (Late st Contact Info) Description 12/16/2023 Orders Only Hematology/Oncology [facility] [place] 200 [facility] [place] [address] Cory [facility]ante MD [address] [facility] [address] Allergies No known active allergiesdocumented as of this encounter (statuses as of 01/11/2024) Medications Medication Sig Dispensed Refills Start Date [...] as of this encounter (statuses as of 01/11/2024) Active Problems Problem Noted Date Diagnosed Date [...] as of this encounter (statuses as of 01/11/2024) Resolved Problems Problem Noted Date Diagnosed Date [...] Name: Molly Chowdhury CRC Contact PI or TRAFFIC CONTROL FLAGGER regarding any serious medical event, if new [...] Infante MD PI CRC Name: Molly Luciana [facility] Contact PI or TRAFFIC CONTROL FLAGGER regarding any serious medical event, if new Rx given, ER visit, hospitalization, or billing question Diagnosis changed due to Research Module. Go to Snapshot for study details. documented as of this encounter (statuses as of 01/11/2024) Immunizations Name Administration Dates Next Due COVID-19 [...] Description 01/13/2024 7:50 AM EDT Laboratory Laboratory, [place] [address] [place] [phone] [place] [address] [place] [address] 01/16/2024 8:30 AM EDT Office Visit Hematology/Oncology [facility] [address] [place] [address] Gabriela Norris CRNP [address] [facility] [place] [address] 01/16/2024 9:00 AM EDT Immunization/Injecti on Hematology/Oncology Treatment, [place] [address] [place] [phone] Gisele, Chair [address] Hem On[address] [place] [address] 01/30/2024 9:30 AM EDT Pharmacy Pharmacy Hematology Oncology [facility] [place] [address] [place] [facility] [place] [address] [facility] Hem[facility]c [facility] [address] 03/13/2024 10:45 AM EDT Imaging Radiology [facility] 1st [facility] 132 [facility] [place] [address] 05/25/2024 10:40 AM EDT Office Visit General Internal [facility] [address] [place] [address] Susie White MD [address] [place] [address] 07/24/2024 11:00 AM EST Office Visit [address] [address] Donita Cornejo PA-C [address] [place] [address] [place] [address] Scheduled Procedures Name Priority Associated Diagnoses Date/Ti [...] 024, 10/28/2022, 10/12/2021 CKD PHOS USE SMARTSET 99966 11/20/202411/06, 12/01/2022, 10/12/2021, Additional history exists CKD HGB USE SMARTSET 95265 12/28/202412/28, 12/29/2023, 11/21/2023, Additional history exists Pneumococcal [...] this encounter Medical Devices Implanted Type Area Opto Mechanical Engineer Device Identifier Shelf Expiration Date Model / Serial / Lot Implant Hi Prof Gel 750cc - [id number] Implanted:Qty: 1 on 07/02/2013 at OR [facility] [place] Right: Breast MENTOR DARVIN 11/30/2013 350-7504BC / [id number] / [id number] Implant Hi Prof Gel 750cc - [id number] Implanted:Qty: 1 on 07/02/2013 at OR [facility] [place] Left: Breast MENTOR DARVIN 04/01/2014 350-7504BC / [id number] / [id number] documented as of this encounter Advance Directives [...] Directives occurred with: Not Discussed Care Teams Sales Professional Relationship Specialty Start Date End Date Susie White MD 200 [place] [address] PCP - General Internal Medicine 03/02/12 documented as of this encounter
--- OUTSIDE RECORDS SUMMARY | 2024-02-18 11:32 | External Medical Summary | Summary of Care ---
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) Malignant neoplasm of overlapping sites of both breasts in female, estrogen receptor positive (HCC) Procedures TN INJECTION, FULVESTRANT Cory Infante MD [address] [place] [address] Anc Hem/Onc [address] [address] Referral ID Status Reason Start Date Expiration Date V isits Requested Visits Authorized [id number] Authorized 09/16/2023 03/13/2024 999 999 Encounter Details Date Type Department Care Team (Late st Contact Info) Description 12/20/2023 10:15 AM EDT Immunization/I njection Hematology/Oncology Treatment, [address] [address] Nurse, Med [address] [place] [address] [place] [address] 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)*; 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); Malignant neoplasm of overlapping sites of both breasts in female, estrogen receptor positive (HCC) Allergies No known active allergiesdocumented as of this encounter (statuses as of 01/14/2024) Medications Medication Sig Dispensed Refills Start Date [...] as of this encounter (statuses as of 01/14/2024) Active Problems Problem Noted Date Diagnosed Date [...] as of this encounter (statuses as of 01/14/2024) Resolved Problems Problem Noted Date Diagnosed Date [...] Infante MD PI CRC Name: Molly Chowdhury [facility] Contact PI or CHIEF ORTHOPTIST regarding any serious medical event, if new [...] Infante MD PI CRC Name: Molly Chowdhury [facility] Contact PI or CHIEF ORTHOPTIST regarding any serious medical event, if new Rx given, ER visit, hospitalization, or billing question Diagnosis changed due to Research Module. Go to Snapshot for study details. documented as of this encounter (statuses as of 01/14/2024) Immunizations Name Administration Dates Next Due COVID-19 [...] Nursing Notes * Ania Teague LPN - 12/20/2023 10:19 AM EDT Faslodex 500mg administered IM (250mg into Right Dorsogluteal) (250mg into Left Dorsogluteal). Patient tolerated injection and will return in 1 month. documented in this encounter Plan of Treatment Upcoming Encounters Date Type Department Care Team (Late st Contact Info) Description 01/16/2024 8:30 AM EDT Office Visit Hematology/Oncology [facility] [address] [place] [phone] Gabriela Norris CRNP [address] [facility] [place] [address] 01/16/2024 9:00 AM EDT Immunization/Inject ion Hematology/Oncology Treatment, [place] [facility] [phone] Gisele, Chair 3 Hem On[address] [place] [address] 01/30/2024 9:30 AM EDT Pharmacy Pharmacy Hematology Oncology [facility] [address] [place] [address] [facility] [place] [facility] Hem/Onc [address] [place] [address] 03/13/2024 10:45 AM EDT Imaging Radiology [facility] 1st [facility], [place] 132 [facility] [place] [address] 05/25/2024 10:40 AM EDT Office Visit General Internal Medicine [facility] [address] [place] [address] Susie White MD [address] [place] [address] [facility] [place] [address] 07/24/2024 11:00 AM EST Office Visit [address]ermat[address] [address] Donita Cornejo PA-C [address] [place] [address] [place] [address] Scheduled Procedures Name Priority Associated Diagnoses Date/Ti [...] 024, 10/28/2022, 10/12/2021 CKD PHOS USE SMARTSET 92445 11/20/202411/06, 12/01/2022, 10/12/2021, Additional history exists CKD HGB USE SMARTSET 49933 01/12/202501/12, 01/13/2024, 12/29/2023, Additional history exists Pneumococcal [...] this encounter Medical Devices Implanted Type Area Business Services Clerk Device Identifier Shelf Expiration Date Model / Serial / Lot Implant Hi Prof Gel 750cc - [id number] Implanted:Qty: 1 [place] 07[place]02[place]2013 [place] [facility] [place]: Breast MENTOR DARVIN 11/30/2013 350-7504BC / [id number] / [id number] Implant Hi Prof Gel 750cc - [id number] Implanted:Qty: 1 on 07/02/2013 [place] [facility] [place]: Breast MENTOR DARVIN 04/01/2014 350-7504BC / [id number] / [id number] documented as of this encounter Visit Diagnoses [...] 500 mg 500 mg, Intramuscular, ONCE, On Tue12/20/23 at 1115, For 1 dose Given 12/20/2023 10:12 AM EDT 500 mg Dorsogluteal Left documented [...] Directives occurred with: Not Discussed Care Teams Computer Engineering Technologist Relationship Specialty Start Date End Date Susie White MD 200 [place] [address] PCP - General Internal Medicine 03/02/12 documented as of this encounter
--- OUTSIDE RECORDS SUMMARY | 2024-02-18 11:32 | External Medical Summary | Summary of Care ---
Author Name Unknown Organization [facility] Address [address] [place] [address] Phone [phone] Care Team Providers Care Injector Assembler Name Role Phone Susie White MD Primary Care Provider [phone] Encounter Details Date Type Department Care Team (Late st Contact Info) Description 01/16/2024 Telephone Hematology/Oncology [facility] G[place]le [place] [address] [facility] [place] [address] Gabriela Norris CRNP [address] [place] [address] Allergies No known active allergiesdocumented as of this encounter (statuses as of 01/16/2024) Medications Medication Sig Dispensed Refills Start Date [...] as of this encounter (statuses as of 01/16/2024) Active Problems Problem Noted Date Diagnosed Date [...] as of this encounter (statuses as of 01/16/2024) Resolved Problems Problem Noted Date Diagnosed Date [...] Name: Molly Chowdhury CRC Contact PI or SHREDDED FILLER CUTTER OPERATOR regarding any serious medical event, if [...] Infante MD PI CRC Name: Molly Luciana [facility] Contact PI or SHREDDED FILLER CUTTER OPERATOR regarding any serious medical event, if new Rx given, ER visit, hospitalization, or billing question Diagnosis changed due to Research Module. Go to Snapshot for study details. documented as of this encounter (statuses as of 01/16/2024) Immunizations Name Administration Dates Next Due COVID-19 [...] encounter Miscellaneous Notes * Telephone Encounter - Carol Ellington OSA - 01/16/2024 8:21 AM EDT Pt is scheduled and will be given a new AVS at check out today with apts on it * Telephone Encounter - Carol Ellington OSA - 01/16/2024 8:16 AM EDT [7:48 AM] Mary Marquez I spoke to Shante Cordoba - - she will rs her appt from today to match up with her next inj or after her PET CT, whichever is next Pts pet is not until aug Was told - [8:20 AM] Mary Marquez Just schedule her inj/return with Dr Infante on 04/10 please [8:21 AM] Mary Marquez discussed with Leilani johnson 1 documented in this encounter Plan of Treatment Upcoming Encounters Date Type Department Care Team (Late st Contact Info) Description 01/16/2024 9:00 AM EDT Immunization/Inject ion Hematology/Oncology Treatment, [place] 200 [facility] [place] [phone] Gisele, Chair [address] Hem On[address] [place] [address] 01/30/2024 9:30 AM EDT Pharmacy Pharmacy Hematology Oncology [facility] [address] [place] [address] [facility] Hem/Onc [address] [place] [address] 03/13/2024 10:45 AM EDT Imaging Radiology [address], [place] 132 [facility] [place] [address] 04/10/2024 9:15 AM EDT Office Visit Hematology/Oncology [address] [place] [phone] Cory Infante MD [address] [place] [address] [place] [address] 04/10/2024 9:45 AM EDT Immunization/Inject ion Hematology/Oncology Treatment, [address] [phone] 05/25/2024 10:40 AM EDT Office Visit General Internal Medicine [facility] [place] 200 [facility] [place] [address] Susie White MD 200 [facility] [place] [address] 07/24/2024 11:00 AM EST Office Visit Dermatology, [address] [address] Donita Cornejo PA-C [address] [place] [address] [place] [address] Scheduled Procedures Name Priority Associated Diagnoses Date/Ti [...] 024, 10/28/2022, 10/12/2021 CKD PHOS USE SMARTSET 15298 11/20/202411/06, 12/01/2022, 10/12/2021, Additional history exists CKD HGB USE SMARTSET 75265 01/12/202501/12, 01/13/2024, 12/29/2023, Additional history exists Pneumococcal [...] this encounter Medical Devices Implanted Type Area Animal Behaviourist Device Identifier Shelf Expiration Date Model / Serial / Lot Implant Hi Prof Gel 750cc - [id number] Implanted:Qty: 1 on 07/02/2013 at [place] [facility] [place] Right: Breast MENTOR DARVIN 11/30/2013 350-7504BC / [id number] / [id number] Implant Hi Prof Gel 750cc - [id number] Implanted:Qty: 1 on 07/02/2013 at [place] [facility] [place] Left: Breast MENTOR DARVIN 04/01/2014 350-7504BC / [id number] / [id number] documented as of this encounter Advance Directives [...] Directives occurred with: Not Discussed Care Teams Injector Assembler Relationship Specialty Start Date End Date Susie White MD [address] [place], [place] [address] PCP - General Internal Medicine 03/02/12 documented as of this encounter
--- OUTSIDE RECORDS SUMMARY | 2024-02-18 11:32 | External Medical Summary | Summary of Care ---
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) Malignant neoplasm of overlapping sites of both breasts in female, estrogen receptor positive (HCC) Procedures [place] INJECTION, FULVESTRANT Cory Infante MD [address] [place] [address] [place] [address] Anc Hem/Onc [address] [address] Referral ID Status Reason Start Date Expiration Date V isits Requested Visits Authorized [id number] Authorized 09/16/2023 03/13/2024 [id number] Encounter Details Date Type Department Care Team (Late st Contact Info) Description 01/16/2024 9:00 AM EDT Immunization/I njection Hematology/Oncology Treatment, [address] [address] Gisele Chair 3 Hem Onc [address] [place] [address] 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)*; [...] Infante MD PI CRC Name: Molly Chowdhury [facility] Contact PI or RECRUITING COORDINATOR regarding any serious medical event, if new [...] Infante MD PI CRC Name: Molly Chowdhury [facility] Contact PI or RECRUITING COORDINATOR regarding any serious medical event, if new [...] 9:30 AM EDT Pharmacy Pharmacy Hematology Oncology [place] [address] [place] [address] [facility] Hem/Onc [facility] [place] [address] 02/14/2024 10:00 AM EDT Immunization/Inject ion Hematology/Oncology Treatment, [address] [phone] G[place]le, Chair 3 Hem Onc [address] [place] [address] 03/13/2024 10:00 AM EDT Immunization/Inject ion Hematology/Oncology Treatment, [address] [place] [address] Gisele, Chair 3 Hem Onc [address] [place] [address] 03/13/2024 10:45 AM EDT Imaging Radiology [facility] 1st [facility], [address] [address] 04/10/2024 9:15 AM EDT Office Visit Hematology/Oncology [facility] [place] [address] [address] [place] [phone] Cory Infante MD [address] [place] [address] [place] [address] 04/10/2024 9:45 AM EDT Immunization/Inject ion Hematology/Oncology Treatment, [address] [address] 05/25/2024 10:40 AM EDT Office Visit General Internal Medicine [employer] [address] [place], [place] [address] Susie White MD [address] [place] [address] 07/24/2024 11:00 AM EST Office Visit [facility] [address] [facility] [address] Donita Cornejo PA-C [address] [place] [address] [place] [address] Scheduled Procedures Name Priority Associated Diagnoses Date/Ti [...] 024, 10/28/2022, 10/12/2021 CKD PHOS USE SMARTSET 16641 11/20/202411/06, 12/01/2022, 10/12/2021, Additional history exists CKD HGB USE SMARTSET 34539 01/12/202501/12, 01/13/2024, 12/29/2023, Additional history exists Pneumococcal [...] this encounter Medical Devices Implanted Type Area Conciliation Court Judge Device Identifier Shelf Expiration Date Model / Serial / Lot Implant Hi Prof Gel 750cc - [id number] Implanted:Qty: 1 on 07/02/2013 at OR [facility] Right: Breast MENTOR DARVIN 11/30/2013 350-7504BC / [id number] / [id number] Implant Hi Prof Gel 750cc - [id number] Implanted:Qty: 1 on 07/02/2013 at OR [facility] Left: Breast MENTOR DARVIN 04/01/2014 350-7504BC / [id number] / [id number] documented as of this encounter Visit Diagnoses [...] 500 mg 500 mg, Intramuscular, ONCE, On 01/16/24 at 1000, For 1 dose Given 01/16/2024 [...] Directives occurred with: Not Discussed Care Teams Diet Consultant Relationship Specialty Start Date End Date Susie White MD [address] [place] [address] PCP - General Internal Medicine 03/02/12 documented as of this encounter
--- OUTSIDE RECORDS SUMMARY | 2024-02-18 11:32 | External Medical Summary | Summary of Care ---
Author Name Unknown Organization [facility] Address [address] [place] [address] Phone [phone] Care Team Providers Care Svp Group Director Name Role Phone Susie White MD Primary Care Provider [phone] Encounter Details Date Type Department Care Team (Late st Contact Info) Description 01/10/2024 Orders Only Outcomes Research Department [address] [place], [place] [phone] Daija Marcus CHRA [employer] Research Other*[id number] Allergies No known active allergiesdocumented as of this encounter (statuses as of 01/10/2024) Medications Medication Sig Dispensed Refills Start Date [...] as of this encounter (statuses as of 01/10/2024) Active Problems Problem Noted Date Diagnosed Date [...] as of this encounter (statuses as of 01/10/2024) Resolved Problems Problem Noted Date Diagnosed Date [...] CRC Name: Molly LIND Contact PI or HAND ALTERATIONS SEAMSTRESS regarding any serious medical event, if new [...] Infante MD PI CRC Name: Molly Chowdhury [facility] Contact PI or HAND ALTERATIONS SEAMSTRESS regarding any serious medical event, if new Rx given, ER visit, hospitalization, or billing question Diagnosis changed due to Research Module. Go to Snapshot for study details. documented as of this encounter (statuses as of 01/10/2024) Immunizations Name Administration Dates Next Due COVID-19 [...] Description 01/13/2024 7:50 AM EDT Laboratory Laboratory, [address] [phone] [place] [address] [place] [address] 01/16/2024 8:30 AM EDT Office Visit Hematology/Oncology [facility] Gisele [address] [place] [address] Gabriela Norris CRNP [address] [place] [address] [place] [address] 01/16/2024 9:00 AM EDT Immunization/Injecti on Hematology/Oncology Treatment, [place] [address] [facility] [place] [address] Gisele, Chair 3 Hem On[address] [place] [address] 01/30/2024 9:30 AM EDT Pharmacy Pharmacy Hematology Oncology [address] [address] [facility] [place] Hem[facility]Onc [address] [facility] [address] 03/13/2024 10:45 AM EDT Imaging Radiology [facility] [place] [facility] 1st [facility], [place] [address] [facility] [place] [address] 05/25/2024 10:40 AM EDT Office Visit General Internal Medicine [facility] [place] [address] [place] [address] Susie White MD [address] [place] [address] 07/24/2024 11:00 AM EST Office Visit [address] [address] Donita Cornejo PA-C [address] [place] [address] [place] [address] Scheduled Orders Name Type Priority Associated Diagnoses Orde r Schedule MYCODE SUBSEQUENT ADULT Lab Routine [employer] Research Other*[id number] Every 6 Months for 2 Occurrences starting 01/10/2024 until 01/29/2025 Scheduled Procedures Name Priority Associated Diagnoses Date/Ti me COLONOSCOPY FLEXIBLE PROXIMA L DIAGNOSTIC Recall History of colonic polyps Health Maintenance Due Date Last Done Comments Hepatitis B (1 of 3 - 19+ 3-dose series) 1991 Cologuard 2017 Fecal Occult Blood Test 2017 Sigmoidoscopy 2017 GFR 06/30/2024 12/29/2023, 11/06, 07/18/2023, Additional history exists Depression Screening 11/16/2024 11/17/2023 Albumin/Creatinine Ratio 11/20/20242 024, 10/28/2022, 10/12/2021 CKD PHOS USE SMARTSET 84930 11/20/202411/06, 12/01/2022, 10/12/2021, Additional history exists CKD HGB USE SMARTSET 96563 12/28/202412/28, 12/29/2023, 11/21/2023, Additional history exists Pneumococcal [...] this encounter Medical Devices Implanted Type Area Senior Network Administrator Device Identifier Shelf Expiration Date Model / Serial / Lot Implant Hi Prof Gel 750cc - [id number] Implanted:Qty: 1 on 07/02/2013 at OR [facility] [place] Right: Breast MENTOR DARVIN 11/30/2013 350-7504BC / [id number] / [id number] Implant Hi Prof Gel 750cc - [id number] Implanted:Qty: 1 on 07/02/2013 at OR [facility] Left: Breast MENTOR DARVIN 04/01/2014 350-7504BC / [id number] / [id number] documented as of this encounter Visit Diagnoses Diagnosis My[employer] Research Other*[id number] documented in this encounter Advance Directives * [...] Directives occurred with: Not Discussed Care Teams Svp Group Director Relationship Specialty Start Date End Date Susie White MD 200 [place] [address] PCP - General Internal Medicine 03/02/12 documented as of this encounter
--- OUTSIDE RECORDS SUMMARY | 2024-02-18 11:32 | External Medical Summary ---
Author Name Unknown Address Unknown Organization K01:[facility] [address] [facility] [address] Laboratory Report Ordering Provider Test Date Status RISA JENKINS 01/13/2024 08:16:22 Final Observation Date Value Abnormality Reference (Units ) Status WBC, Total 01/13/2024 08:16:22 3.16 Below low normal 4.00-10.80 (K/uL) Final RBC 01/13/2024 08:16:22 4.59 3.85-5.15 (M/uL) Final Hemoglobin 01/13/2024 08:16:22 14.1 12.0-15.3 (g/dL) Final HCT 01/13/2024 08:16:22 43.8 36.0-45.2 (%) Final MCV 01/13/2024 08:16:22 95.4 81.5-97.5 (fL) Final MCH 01/13/2024 08:16:22 30.7 27.0-34.0 (pg) Final MCHC 01/13/2024 08:16:22 32.2 32.0-36.0 (g/dL) Final RDW 01/13/2024 08:16:22 12.6 11.5-15.5 (%) Final Platelets 01/13/2024 08:16:22 249 140-400 (K/uL) Final MPV 01/13/2024 08:16:22 10.5 6.6-11.1 (fL) Final Nucleated erythrocytes/100 leukocytes [Ratio] in Blood by Automated count 01/13/2024 08:16:22 0 <=0 (/100 WBCs) Final Performing Location [facility] [place] [address] [place] [address]
--- OUTSIDE RECORDS SUMMARY | 2024-02-18 11:32 | External Medical Summary | Summary of Care ---
Author Name Unknown Organization [facility] Address [address] [place] [address] Phone [phone] Care Team Providers Care Acquisition Specialist Name Role Phone Susie White MD Primary Care Provider [phone] Reason for Visit * Reason Comments Medication Management Encounter Details Date Type Department Care Team (Late st Contact Info) Description 01/30/2024 9:30 AM EDT Pharmacy Pharmacy Hematology Oncology [facility] [address] [place] [address] [facility] [place], [facility] Hem/Onc [address] [place] [address] Malignant neoplasm of overlapping sites of both breasts in female, estrogen receptor positive (HCC)* Allergies No known active allergiesdocumented as of this encounter (statuses as of 01/30/2024) Medications Medication Sig Dispensed Refills Start Date [...] as of this encounter (statuses as of 01/30/2024) Active Problems Problem Noted Date Diagnosed Date [...] as of this encounter (statuses as of 01/30/2024) Resolved Problems Problem Noted Date Diagnosed Date [...] CRC Name: Molly LIND Contact PI or PIPE JOINTS SUPERVISOR regarding any serious medical event, if [...] Infante MD PI CRC Name: Molly Chowdhury [facility] Contact PI or PIPE JOINTS SUPERVISOR regarding any serious medical event, if new Rx given, ER visit, hospitalization, or billing question Diagnosis changed due to Research Module. Go to Snapshot for study details. documented as of this encounter (statuses as of 01/30/2024) Immunizations Name Administration Dates Next Due COVID-19 [...] of this encounter Progress Notes * Rosemary Salvador, LEN - 01/30/2024 9:30 AM EDT MEDICATION THERAPY MANAGEMENT CAPIVASERTIB TREATMENT PROGRESS NOTE Shante Cordoba [phone] Patient Phone Numbers Preferred Lab: [facility]: [facility] Communication: Spoke to: Patient Treatment: Medication: Capivasertib (Truqap) Indication/Staging/Diagnosis Code: Metastatic Breast Cancer, ER+, NE+, HER2-, PIK3CA mutation C50.811, C50.812, Z17.0 Dose: 400 mg twice daily (~12 hours apart) for 4 consecutive days, followed by 3 days off (administer capivasertib on days 1 to 4 of each week) Administration: +/- food Start Date: 12/19/23 Primary Program Engagement Director/Oncologist: Dr. Yeimy Infante [id number] Study Fasting lab appointment scheduled for Tuesday at 0740 in [place] Undraped Artist Model Pharmacy Hematology Oncology Oral Chemotherapy Clinic Medication Therapy Disease Management [facility] 01/30/24 10:06 AM Time Spent on Encounter: < 5 minutes documented in this encounter Plan of Treatment Upcoming Encounters Date Type Department Care Team (Late st Contact Info) Description 02/03/2024 7:40 AM EDT Laboratory Laboratory, [address] [phone] [place] [address] [place] [address] 02/06/2024 9:30 AM EDT Pharmacy Pharmacy Hematology Oncology [address] [address] [facility], [facility] Hem/Onc [address] [place] [address] 02/14/2024 10:00 AM EDT Immunization/Injectio n Hematology/Oncology Treatment, [address] [address] [place], Chair 3 Hem Onc [address] [address] 03/13/2024 10:00 AM EDT Immunization/Injectio n Hematology/Oncology Treatment, [address] [phone] G[place]le, Chair 3 Hem Onc [facility] 200 [facility] [place] [address] 03/13/2024 10:45 AM EDT Imaging Radiology [address], [place] 132 [facility] [place] [address] 04/10/2024 9:15 AM EDT Office Visit Hematology/Oncology [facility] [place] 200 [facility] [place] [phone] Cory Ifnante MD 200 [facility] [place] [address] 04/10/2024 9:45 AM EDT Immunization/Injectio n Hematology/Oncology Treatment, [place] 200 [facility] [phone] [place]le, Chair 11 Hem Onc [facility] 200 [facility] [place] [address] 05/25/2024 10:40 AM EDT Office Visit General Internal Medicine [facility] [place] [address], [place] [address] Susie White MD 200 [facility] [place] [address] 07/24/2024 11:00 AM EST Office Visit [address] [place] [address] Donita Cornejo PA-C [address] [place] [address] [place] [address] Scheduled Procedures Name Priority Associated Diagnoses Date/Ti [...] 024, 10/28/2022, 10/12/2021 CKD PHOS USE SMARTSET 09343 11/20/2024 04/12/2023, 12/01/2022, 10/12/2021, Additional history exists CKD HGB USE SMARTSET 84258 01/12/202501/12, 01/13/2024, 12/29/2023, Additional history exists Pneumococcal [...] encounter Medical Devices Implanted Type Area Project Hire Device Identifier Shelf Expiration Date Model / Serial / Lot Implant Hi Prof Gel 750cc - [id number] Implanted:Qty: 1 on 07/02/2013 at OR [facility] [place] Right: Breast MENTOR DARVIN 11/30/2013 350-7504BC / [id number] / [id number] Implant Hi Prof Gel 750cc - [id number] Implanted:Qty: 1 on 07/02/2013 at OR [facility] [place] [facility] Left: Breast MENTOR DARVIN 04/01/2014 350-7504BC / [id number] / [id number] documented as of this encounter Visit Diagnoses [...] Directives occurred with: Not Discussed Care Teams Acquisition Specialist Relationship Specialty Start Date End Date Susie White MD 200 [facility] [place] [address] PCP - General Internal Medicine 03/02/12 documented as of this encounter
--- OUTSIDE RECORDS SUMMARY | 2024-02-18 11:33 | External Medical Summary | Summary of Care ---
Author Name Unknown Organization [facility] Address [address] [place] [address] Phone [phone] Care Team Providers Care Rn Radiology Name Role Phone Susie White MD Primary Care Provider [phone] Reason for Visit * Reason Comments Medication Management Encounter Details Date Type Department Care Team (Late st Contact Info) Description 12/23/2023 9:45 AM EDT Pharmacy Pharmacy Hematology Oncology [facility] [address] [place] [address] [facility], [facility] Hem/Onc [address] [place], [place] [id number] Malignant neoplasm of overlapping sites of both breasts in female, estrogen receptor positive (HCC)* Allergies No known active allergiesdocumented as of this encounter (statuses as of 12/23/2023) Medications Medication Sig Dispensed Refills Start Date [...] by mouth in the morning. 0 Active Fulvestrant 250 MG/5ML Intramuscular Solution Prefilled Syringe (Faslodex) Inject into a large muscle every 4 weeks. 0 Active traZODone HCl 50 MG Oral Tablet [...] as of this encounter (statuses as of 12/23/2023) Active Problems Problem Noted Date Diagnosed Date [...] as of this encounter (statuses as of 12/23/2023) Resolved Problems Problem Noted Date Diagnosed Date [...] CRC Name: Molly LIND Contact PI or FLUE LINING DIPPER regarding any serious medical event, if new [...] Name: Molly Chowdhury [facility] Contact PI or FLUE LINING DIPPER regarding any serious medical event, if new Rx given, ER visit, hospitalization, or billing question Diagnosis changed due to Research Module. Go to Snapshot for study details. documented as of this encounter (statuses as of 12/23/2023) Immunizations Name Administration Dates Next Due COVID-19 [...] this encounter Progress Notes * Radha Toscano, [facility] - 12/23/2023 11:45 AM EDT MEDICATION THERAPY MANAGEMENT CAPIVASERTIB TREATMENT PROGRESS NOTE Shante Cordoba [id number] Patient Phone Numbers Preferred Lab: [facility]: [facility] Communication: Spoke to: Patient Treatment: Medication: Capivasertib (Truqap) Indication/Staging/Diagnosis Code: Metastatic Breast Cancer, ER+, CO+, HER2-, PIK3CA mutation C50.811, C50.812, Z17.0 Dose: 400 mg twice daily (~12 hours apart) for 4 consecutive days, followed by 3 days off (administer capivasertib on days 1 to 4 of each week) Administration: +/- food Start Date: 12/19/23 Primary Forming Process Line Worker/Oncologist: Dr. Yeimy Infante [id number] Study Additional Therapy: Fulvestrant Supportive Care Meds: Cetirizine Ondansetron Loperamide Urea Cream Treatment History: -S/P bilateral mastectomies followed by immediate reconstruction (April,) -Dose dense AC followed by weekly paclitaxel between 05/22/2012-11/01/2012 Adjuvant radiation treatment completed in January,. - had Zoladex -S/P bilateral oophorectomy in January, (no hysterectomy) -tamoxifen between January [id number] 2020. - Letrozole and ribociclib between 10/2019 -09/2023 (discontinued because of disease progression mainly in the abdomen Interval History: Confirms start date as above Confirms applying urea cream and denies HFS Confirms cetirizine administration and denies rash Reports one episode of self-limiting diarrhea. Denies loperamide use or recurrence Reports mild nausea. Confirms taking ondansetron with each capivasertib dose for N/V ppx No other concerns, tolerating therapy well Changes to medication list since last visit? No Assessment and Plan: Continue urea cream for HFS ppx Continue cetirizine for rash ppx Continue ondansetron for N/V ppx Continue current therapy Q2wk labs scheduled 12/28 @0740 Assessment of compliance: compliant Assessment of adverse effects attributed to drug therapy: Rash- absent Edema- absent Hyperglycemia- absent Diarrhea- present Nausea/vomiting- present Dose adjustment needed based on lab or adverse drug reaction? No Follow up: 1 week Radha Toscano, PharmD, BCOP Clinical Pharmacist, [facility] Oral Chemotherapy [facility] 12/23/2023, 12:00 PM Monitoring Parameters: Estimated CrCl Serum creatinine: 1.1 mg/dL (H) 11/21/23 0736 Estimated creatinine clearance: 62.7 mL/min (A) Hepatitis panel Complete 12/01/22 Not [...] Pertinent Labs: N/A Time Spent on Encounter: 6 - 10 minutes Encounter Group: Oncology Encounter Interventions Item Category: Oral Chemotherapy Other: Capivasertib Problem/Rationale: Safety: Needs additional monitoring - Medication Requires monitoring Pharmacist Intervention(s): Care coordination and Toxicity monitoring Magnitude of Intervention: Monitoring with direction (Level 1) Second Item Second Item Category: Topicals Urea Problem/Rationale: Effectiveness: Needs additional monitoring - Medication Requires monitoring Pharmacist Intervention(s): Toxicity monitoring Magnitude of Intervention: Monitoring with direction (Level 1) Third Item Third Item Category: Antihistamine Certrizine Problem/Rationale: Effectiveness: Needs additional monitoring - Medication Requires monitoring Pharmacist Intervention(s): Toxicity monitoring Magnitude of Intervention: Monitoring with direction (Level 1) Fourth Item Fourth Item Category: Anti-Emetic Ondansetron Problem/Rationale: Effectiveness: Needs additional monitoring - Medication Requires monitoring Pharmacist Intervention(s): Toxicity monitoring Magnitude of Intervention: Monitoring with direction (Level 1) documented in this encounter Plan of Treatment Upcoming Encounters Date Type Department Care Team (Late st Contact Info) Description 12/29/2023 7:40 AM EDT Laboratory Laboratory, [place] [address] [place] [address] [facility] [address] [place] [address] 12/30/2023 9:30 AM EDT Pharmacy Pharmacy Hematology Oncology [address] [address] [facility]c [facility] [place] [address] 01/16/2024 8:30 AM EDT Office Visit Hematology/Oncology [address] [place] [address] Gabriela Norris CRNP [address] [facility] [place] [address] 01/16/2024 9:00 AM EDT Immunization/Injecti on Hematology/Oncology Treatment, [place] [address] [facility] [address] Gisele, Chair 3 Hem Onc Scenery [address] [facility] [place] [address] 03/13/2024 10:45 AM EDT Imaging Radiology [facility] 1st [facility], [place] [address] [place] [address] 05/25/2024 10:40 AM EDT Office Visit General Internal Medicine [facility] [address] [place] [address] Susie White MD [address] [facility] [place] [address] 07/24/2024 11:00 AM EST Office Visit [address], [place] [address] Donita Cornejo PA-C [address] [place] [address] [place] [address] Scheduled Procedures Name Priority Associated Diagnoses Date/Ti me COLONOSCOPY FLEXIBLE PROXIMA L DIAGNOSTIC Recall History of colonic polyps Health Maintenance Due Date Last Done Comments Hepatitis B (1 of 3 - 19+ 3-dose series) 1991 Cologuard 2017 Fecal Occult Blood Test 2017 Sigmoidoscopy 2017 GFR 05/22/2024 11/21/2023, 07/08, 04/27/2023, Additional history exists Depression Screening 11/16/2024 11/17/2023 Albumin/Creatinine Ratio 11/20/20242 024, 10/28/2022, 10/12/2021 CKD HGB USE SMARTSET 81457 11/20/202411/20, 11/21/2023, 07/18/2023, Additional history exists CKD PHOS USE SMARTSET 32913 11/20/202411/06, 12/01/2022, 10/12/2021, Additional history exists Pneumococcal Vaccine: Pediatrics (0 to 5 Years) and At-Risk Patients (6 to 64 Years) (3 of 3 - PPSV23 or PCV20) 10/01/2026 10/01/2021, 05/26/2020 Diabetes Screening 11/20/2026 11/21/2023, 0 11/21/2023, 11/21/2023, Additional history exists Colonoscopy 05/09/2028 05/09/2023, 05/09/2023 [...] this encounter Medical Devices Implanted Type Area Retail Event And Sales Assistant Device Identifier Shelf Expiration Date Model / Serial / Lot Implant Hi Prof Gel 750cc - [id number] Implanted:Qty: 1 on 07/02/2013 at [place] [facility] Right: Breast MENTOR DARVIN 11/30/2013 350-7504BC / [id number] / [id number] Implant Hi Prof Gel 750cc - [id number] Implanted:Qty: 1 on 07/02/2013 at [place] [facility] Left: Breast MENTOR DARVIN 04/01/2014 350-7504BC / [id number] / [id number] documented as of this encounter Visit Diagnoses [...] Directives occurred with: Not Discussed Care Teams Rn Radiology Relationship Specialty Start Date End Date Susie White MD [address] [place] [address] PCP - General Internal Medicine 03/02/12 documented as of this encounter
--- OUTSIDE RECORDS SUMMARY | 2024-02-18 11:33 | External Medical Summary ---
Author Name Unknown Address Unknown Organization K01:LABORATORY [facility] - [address] [place] [address] Laboratory Report Ordering Provider Test Date Status RISA JENKINS 12/29/2023 07:41:59 Final Observation Date Value Abnormality Reference (Units ) Status HbA1C 12/29/2023 07:41:59 5.3 4.0-5.6 (% ) Final The use of HbA1c to monitor glycemic status is based on normal hemoglobin and HbA composition. This test should not be used in patients with abnormal hemoglobin that affects the half life of the red blood cell or the in vivo glycation rates. Glucose, estimated average 12/29/2023 07:41:59 105 <126 (mg/dL) Final Performing Location LABORATORY [facility] [address] [facility] [address]
--- OUTSIDE RECORDS SUMMARY | 2024-02-18 11:33 | External Medical Summary | Summary of Care ---
Author Name Unknown Organization [facility] Address [address] [place] [address] Phone [phone] Care Team Providers Care Dough Machine Operator Name Role Phone Susie White MD Primary Care Provider [phone] Reason for Visit * Reason Onset Date Comments Precert Future 11/15/2023 Encounter Details Date Type Department Care Team (Late st Contact Info) Description 11/15/2023 Telephone Hematology/Oncology Treatment, [place] [address] [place] [address] Clarence Patel MD [address] [place], [place] [phone] Precert Future Allergies No known active allergiesdocumented as of this encounter (statuses as of 12/07/2023) Medications Medication Sig Dispensed Refills Start Date End Date Status Calcium 600 MG Oral TabletIndications:V itamin D deficiency Take by mouth. 100 Tab 11 3 Active Omeprazole 20 MG Oral Capsule Delayed Release (PriLOSEC) Take 1 Capsule by mouth in the morning and 1 Capsule in the evening. 60 Capsule 5 3 Active Additional Information Patient not taking.Reported on 12/06/2023 Polyethylene Glycol 3350 17 GM Oral Packet (Miralax) Take 1 Packet by mouth in the morning. 0 Active Fulvestrant 250 MG/5ML Intramuscular Solution Prefilled Syringe (Faslodex) Inject into a large muscle every 4 weeks. 0 Active traZODone HCl 50 MG Oral Tablet (Desyrel)Indication s:Other insomnia Take 1 Tablet by mouth at bedtime. 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 90 Tablet 3 3 11/15/19 24 Discontinued Sennosides-Docusate Sodium 8.6-50 MG Oral Capsule Take 2 Tablets by mouth daily. Add 2 more at night if needed 0 3 11/17/19 24 Discontinued Amoxicillin-Pot Clavulanate 875-125 MG Oral Tablet (Augmentin) Take 1 Tablet by mouth in the morning and 1 Tablet before bedtime. 0 4 11/17/19 24 Discontinued oxyCODONE-Acetamino phen 5-325 MG Oral Tablet (Percocet) Take 1 Tablet by mouth every 4 hours as needed for Pain, Moderate. 0 4 11/17/19 24 Discontinued documented as of this encounter (statuses as of 12/07/2023) Active Problems Problem Noted Date Diagnosed Date [...] as of this encounter (statuses as of 12/07/2023) Resolved Problems Problem Noted Date Diagnosed Date [...] Molly Chowdhury [facility] Contact PI or ADMINISTRATIVE SPECIALIST regarding any serious medical event, if new [...] Molly Chowdhury [facility] Contact PI or ADMINISTRATIVE SPECIALIST regarding any serious medical event, if new Rx given, ER visit, hospitalization, or billing question Diagnosis changed due to Research Module. Go to Snapshot for study details. documented as of this encounter (statuses as of 12/07/2023) Immunizations Name Administration Dates Next Due COVID-19 [...] encounter Miscellaneous Notes * Telephone Encounter - Renny Grigsby RN - 12/07/2023 8:39 AM EDT Per pharmacy patient expected shipment date is 12/11. * Telephone Encounter - Jacqueline Velasquez RN - 12/06/2023 10:51 AM EDT Called patient. She received assistance application, but her got a rather large bonus through work so based on her reported income she does not qualify for assistance. She states that she responded back to the email she received saying that she was not going to apply, would like to pay copay for medication. GSP: please call patient to schedule delivery of truqap. Thank you! * Telephone Encounter - Renny Grigsby RN - 12/02/2023 2:37 PM EDT Per Pharmacy- assisting with patient for applying for free medication through physician specialist, will follow up. * Telephone Encounter - Renny Grigsby RN - 12/01/2023 2:09 PM EDT Auth Approved by insurance, referral entered. MTM- FYI * Telephone Encounter - Jacqueline Velasquez RN - 11/29/2023 1:56 PM EDT Referral entered- this was DENIED. Letter for appeal faxed. * Telephone Encounter - Renny Grigsby RN - 11/25/2023 4:09 PM EDT Pt education completed, consent signed with Dr. Infante. * Telephone Encounter - Renny Grigsby RN - 11/25/2023 12:55 PM EDT Hep B labs were completed. Awaiting referral. Education scheduled today. * Telephone Encounter - Jacqueline Velasquez RN - 11/15/2023 8:15 AM EDT Order received for capivasertib (truqap). Patient has [facility] appt today to build beacon. Waiting for auth. MyG sent to patient to schedule "nurse visit" for education and to sign consent with Dr Infante when he returns to the office. Patient had hep B surface antibody 12/01/22, but no other hep B labs- will repeat. Patient will also need baseline CBCd, CMP, HgbA1C. documented in this encounter Plan of Treatment Upcoming Encounters Date Type Department Care Team (Latest Contact Info) Description 12/07/2023 1:45 PM EDT Pharmacy Pharmacy Hematology Oncology [address] [address] [facility], [facility] Hem/Onc [address] [place] [address] Malignant neoplasm of overlapping sites of both breasts in female, estrogen receptor positive (HCC)* 12/12/2023 9:45 AM EDT Pharmacy Pharmacy Hematology Oncology [facility] [place] [address] [place] [address] [facility], [facility] Hem/Onc [address] [place] [address] 12/15/2023 2:45 PM EDT Office Visit Hematology/Oncology [facility] [place] 200 [facility] [place] [phone] Cory Infante MD 200 [facility] [place] [address] 12/20/2023 10:15 AM EDT Immunization/Inje ction Hematology/Oncology Treatment, [place] [facility] [phone] Nurse, Med [address] [facility] [place] [address] 01/17/2024 10:15 AM EDT Immunization/Inje ction Hematology/Oncology Treatment, [address], [place] [phone] Nurse, Med [address] [facility] [place] [address] 05/25/2024 10:40 AM EDT Office Visit General Internal Medicine [facility] [place] [facility] [place] [address] Susie White MD 200 [facility] [place] [address] 07/24/2024 11:00 AM EST Office Visit Dermatology[address] [place] [address] Donita Cornejo PA-C [address] [place] [address] [place] [address] Scheduled Procedures Name Priority Associated Diagnoses Date/Ti me COLONOSCOPY FLEXIBLE PROXIMA L DIAGNOSTIC Recall History of colonic polyps Health Maintenance Due Date Last Done Comments Hepatitis B (1 of 3 - 19+ 3-dose series) 1991 Cologuard 2017 Fecal Occult Blood Test 2017 Sigmoidoscopy 2017 GFR 05/22/2024 11/21/2023, 07/08, 04/27/2023, Additional history exists Depression Screening 11/16/2024 11/17/2023 Albumin/Creatinine Ratio 11/20/2024 024, 10/28/2022, 10/12/2021 CKD HGB USE SMARTSET 39687 11/20/202411/20, 11/21/2023, 07/18/2023, Additional history exists CKD PHOS USE SMARTSET 53030 11/20/202411/06, 12/01/2022, 10/12/2021, Additional history exists Pneumococcal [...] this encounter Medical Devices Implanted Type Area Flight Communications Specialist Device Identifier Shelf Expiration Date Model / Serial / Lot Implant Hi Prof Gel 750cc - [id number] Implanted:Qty: 1 on 07/02/[address] [facility] Right: Breast MENTOR DARVIN 11/30/2013 350-7504BC / [id number] / [id number] Implant Hi Prof Gel 750cc - [id number] Implanted:Qty: 1 on 07/02/[address] [facility] Left: Breast MENTOR DARVIN 04/01/2014 350-7504BC / [id number] / [id number] documented as of this encounter Results * HEMOGLOBIN A1C (11/21/2023 7:36 AM EDT) [facility] Hemoglobin A1C 5.1 4.0 - 5.6 % 11/21/2023 7:[address] [facility] Comment:The use of HbA1c to monitor glycemic status is based on normal hemoglobin and HbA composition. This test should not be used in patients with abnormal hemoglobin that affects the half life of the red blood cell or the in vivo glycation rates. Estimated Average Glucose 100 <126 mg/dL 11/21/2023 7:[address] [facility] Blood Venous blood specimen / Unknown Venipuncture / Unknown 11/21/2023 7:36 AM EDT 11/21/2023 7:37 AM EDT Clarence Patel MD LAB BLOOD ORDERA BLES [facility]ATORY [facility] [address] [place] [address] * (ABNORMAL) COMPREHENSIVE METABOLIC PANEL (11/21/2023 7:36 AM EDT) [facility] BUN 13 6 - 20 mg/dL 11/21/2023 7:[address] [facility] Creatinine 1.1(H) 0.5 - 1.0 mg/dL 11/21/2023 7:[address] [facility] Estimated Glomerular Filtration Rate 60 >=60 mL/min 11/21/2023 7:43 PM EDT LAB[facility]ATORY [facility] Comment:eGFR is calculated b ased on the CKD-EPI 2020 equation Sodium 139 135 - 146 mmol/L 11/21/2023 7:43 PM EDT [facility] Potassium 4.5 3.5 - 5.1 mmol/L 11/21/2023 7:43 PM EDT [facility] Chloride 104 98 - 107 mmol/L 11/21/2023 7:43 PM EDT [facility] CO2 26 22 - 32 mmol/L 11/21/2023 7:43 PM EDT [facility] Anion Gap 9 7 - 15 mmol/L 11/21/2023 7:43 PM EDT [facility] Glucose 76 70 - 120 mg/dL 11/21/2023 7:43 PM EDT [facility] Albumin 4.2 3.8 - 5.0 g/dL 11/21/2023 7:43 PM EDT [facility] AST 27 10 - 35 U/L 11/21/2023 7:43 PM EDT [facility] Alkaline Phosphatase 57 35 - 130 U/L 11/21/2023 7:43 PM EDT [facility] Bilirubin, Total 0.3 <=1.2 mg/dL 11/21/2023 7:43 PM EDT [facility] Calcium 9.9 8.4 - 10.2 mg/dL 11/21/2023 7:43 PM EDT [facility] Protein 6.4 6.0 - 8.3 g/dL 11/21/2023 7:43 PM EDT [facility] ALT 28 10 - 35 U/L 11/21/2023 7:43 PM EDT [facility] Blood Venous blood specimen / Unknown Venipuncture / Unknown 11/21/2023 7:36 AM EDT 11/21/2023 7:37 AM EDT Clarence Patel MD LAB BLOOD ORDERA BLES [facility] [address] [place] [address] * HEPATITIS B CORE ANTIBODIES IGG AND IGM (11/21/2023 7:36 AM EDT) Hepatitis B Core Antibodies IgG and IgM Negative Negative 11/21/2023 8:[address] [facility] Blood Venous blood specimen / Unknown Venipuncture / Unknown 11/21/2023 7:36 AM EDT 11/21/2023 7:37 AM EDT Clarence Patel MD LAB BLOOD ORDERA BLES Performing Organization Address [facility] Co de Phone Number LABORATORY [facility] [address] [place] [address] * HEPATITIS B SURFACE ANTIGEN (11/21/2023 7:36 AM EDT) [facility] Hepatitis B Surface Antigen Negative Negative 11/21/2023 8:[address] [facility] Blood Venous blood specimen / Unknown Venipuncture / Unknown 11/21/2023 7:36 AM EDT 11/21/2023 7:37 AM EDT Clarence Patel MD LAB BLOOD ORDERA BLES Performing Organization Address [facility] de Phone Number LABORATORY [place] [address] [place] [address] * HEPATITIS B SURFACE ANTIBODY (11/21/2023 7:36 AM EDT) [facility] Hepatitis B Surface Antibody, Quantitative <3.5 mIU/mL 11/21/2023 8:[address] [facility] Hepatitis B Surface Antibody, Qualitative Negative 11/21/2023 8:[address] [facility] Hepatitis B Surface Antibody, Interpretation NOT immune to Hepatitis B Virus 11/21/2023 8:[address] [facility] Comment: POSITIVE: >=11.5 mIU/mL INDETERMINATE: 8.5-<11.5 mIU/mL NEGATIVE: <8.5 mIU/mL Blood Venous blood specimen / Unknown Venipuncture / Unknown 11/21/2023 7:36 AM EDT 11/21/2023 7:37 AM EDT Clarence Patel MD LAB BLOOD ORDERA JAYASHREE [facility]AT[facility] [address] [place] [address] documented in this encounter Visit Diagnoses Diagnosis Malignant neoplasm of overlapping sites of both breasts in female, estrogen receptor positive (HCC)- Primary Malignant neoplasm of overlapping sites of both [...] Directives occurred with: Not Discussed Care Teams Dough Machine Operator Relationship Specialty Start Date End Date Susie White MD [address] [place] [address] PCP - General Internal Medicine 03/02/12 documented as of this encounter
--- OUTSIDE RECORDS SUMMARY | 2024-02-18 11:33 | External Medical Summary ---
Author Name Unknown Address Unknown Organization : Laboratory Report Ordering Provider Test Date Status RISA JENKINS 12/09/2023 14:39:08 Final Observation Date Value Abnormality Reference (Units ) Status Cancer Ag 15-3 12/09/2023 14:39:08 762 Above high norm al <32 (U/mL) Final This test was performed usin g the Siemens
chemiluminescent method. Values obtained from
different assay methods cannot be used inter-
changeably. CA 15-3 levels, regardless of value,
should not be interpreted as absolute evidence
of the presence or absence of disease.

Test Performed at:
[facility]
[address] [facility]
[place] [address]
Renny Curry M.D., Ph.D.,Director of Laboratories Performing Location
--- OUTSIDE RECORDS SUMMARY | 2024-02-18 11:33 | External Medical Summary | Summary of Care ---
Author Name Unknown Organization [facility] Address [address] [place] [address] Phone [phone] Care Team Providers Care Training Manager Name Role Phone Susie White MD Primary Care Provider [phone] Reason for Visit * Reason Comments Outpatient Testing Encounter Details Date Type Department Care Team (Late st Contact Info) Description 12/29/2023 7:40 AM EDT Laboratory Laboratory, [place] [address] [place] [address] [place], [facility] [address] [place] [address] Malignant neoplasm of overlapping sites of both breasts in female, estrogen receptor positive (HCC) Allergies No known active allergiesdocumented as of this encounter (statuses as of 12/29/2023) Medications Medication Sig Dispensed Refills Start Date [...] as of this encounter (statuses as of 12/29/2023) Active Problems Problem Noted Date Diagnosed Date [...] as of this encounter (statuses as of 12/29/2023) Resolved Problems Problem Noted Date Diagnosed Date [...] CRC Name: Molly LIND Contact PI or [employer] regarding any serious medical event, if new [...] Infante MD PI CRC Name: Molly Chowdhury [facility] Contact PI or [employer] regarding any serious medical event, if new Rx given, ER visit, hospitalization, or billing question Diagnosis changed due to Research Module. Go to Snapshot for study details. documented as of this encounter (statuses as of 12/29/2023) Immunizations Name Administration Dates Next Due COVID-19 [...] Care Team (Late st Contact Info) Description 12/30/2023 9:30 AM EDT Pharmacy Pharmacy Hematology Oncology [address] [address] [facility] Hem[facility]Onc [address] [place] [address] 01/16/2024 8:30 AM EDT Office Visit Hematology/Oncology [facility] [address] [facility] [address] Gabriela Norris CRNP [address] [place], [place] [address] [address] 01/16/2024 9:00 AM EDT Immunization/Inject ion Hematology/Oncology Treatment, [place] [address] [place] [address] Gisele, Chair 3 Hem Onc [address] [place] [address] 03/13/2024 10:45 AM EDT Imaging Radiology [facility] 1st [facility] [place] [address] [facility] [place] [address] 05/25/2024 10:40 AM EDT Office Visit General Internal Medicine [facility] [place] [address] [place] [address] Susie White MD [address] [facility] [place] [address] 07/24/2024 11:00 AM EST Office Visit [address] [address] Donita Cornejo PA-Favio [address] [place] [address] [place] [address] Pending Results Name Type Priority Associated Diagnoses Date /Time HEMOGLOBIN A1C Lab Routine Malignant neoplasm of overlapping sites of both breasts in female, estrogen receptor positive (HCC) 12/29/2023 7:41 AM EDT GLUCOSE, FASTING PLASMA Lab Routine Malignant neoplasm of overlapping sites of both breasts in female, estrogen receptor positive (HCC) 12/29/2023 7:41 AM EDT COMPREHENSIVE METABOLIC PANEL Lab Routine Malignant neoplasm of overlapping sites of both breasts in female, estrogen receptor positive (HCC) 12/29/2023 7:41 AM EDT CBC WITH WBC DIFFERENTIAL Lab Routine Malignant neoplasm of overlapping sites of both breasts in female, estrogen receptor positive (HCC) 12/29/2023 7:41 AM EDT CBC Lab Routine Malignant neoplasm of overlapping sites of both breasts in female, estrogen receptor positive (HCC) 12/29/2023 7:41 AM EDT DIFFERENTIAL, AUTOMATED Lab Routine Malignant neoplasm of overlapping sites of both breasts in female, estrogen receptor positive (HCC) 12/29/2023 7:41 AM EDT Scheduled Procedures Name Priority Associated [...] 024, 10/28/2022, 10/12/2021 CKD HGB USE SMARTSET 54579 11/20/202411/20, 11/21/2023, 07/18/2023, Additional history exists CKD PHOS USE SMARTSET 70704 11/20/202411/06, 12/01/2022, 10/12/2021, Additional history exists Pneumococcal [...] this encounter Medical Devices Implanted Type Area Skilled Nursing Facilities Professional Device Identifier Shelf Expiration Date Model / Serial / Lot Implant Hi Prof Gel 750cc - [id number] Implanted:Qty: 1 on 07/02/2013 at [place] [facility] [place] Right: Breast MENTOR DARVIN 11/30/2013 350-7504BC / [id number] / [id number] Implant Hi Prof Gel 750cc - [id number] Implanted:Qty: 1 on 07/02/2013 at [place] [facility] [place] Left: Breast MENTOR DARVIN 04/01/2014 350-7504BC / [id number] / [id number] documented as of this encounter Visit Diagnoses [...] Directives occurred with: Not Discussed Care Teams Training Manager Relationship Specialty Start Date End Date Susie White MD [address] [place] [address] [place] [address] PCP - General Internal Medicine 03/02/12 documented as of this encounter
--- OUTSIDE RECORDS SUMMARY | 2024-02-18 11:33 | External Medical Summary ---
Author Name Unknown Address Unknown Organization K01:[facility]ORY [facility] [place] - [address] [place] [address] Laboratory Report Ordering Provider Test Date Status RISA JENKINS 12/29/2023 07:41:59 Final Observation Date Value Abnormality Reference (Units ) Status [place] cells [Presence] in Blood by Light microscopy 12/29/2023 07:41:59 Moderate Abnormal None Seen Final Variant lymphocytes [Presence] in Blood by Light microscopy 12/29/2023 07:41:59 Present Abnormal None Seen Final Performing Location LAB[facility]ATORY [facility] - [address] [place] [address]
--- OUTSIDE RECORDS SUMMARY | 2024-02-18 11:33 | External Medical Summary | Summary of Care ---
Author Name Unknown Organization [facility] Address [address] [place] [address] Phone [phone] Care Team Providers Care Licensed Occupational Therapist Name Role Phone Susie White MD Primary Care Provider [phone] Reason for Visit * Reason Comments Medication Management Encounter Details Date Type Department Care Team (Late st Contact Info) Description 12/30/2023 9:30 AM EDT Pharmacy Pharmacy Hematology Oncology [facility] [place] [address] [place] [address] [facility] Hem/Onc [address] [place] [address] Malignant neoplasm of overlapping sites of both breasts in female, estrogen receptor positive (HCC)* Allergies No known active allergiesdocumented as of this encounter (statuses as of 12/30/2023) Medications Medication Sig Dispensed Refills Start Date [...] as of this encounter (statuses as of 12/30/2023) Active Problems Problem Noted Date Diagnosed Date [...] as of this encounter (statuses as of 12/30/2023) Resolved Problems Problem Noted Date Diagnosed Date [...] CRC Name: Molly LIND Contact PI or [employer] regarding any serious medical event, if new [...] Infante MD PI CRC Name: Molly Chowdhury [facility] Contact PI or [employer] regarding any serious medical event, if new Rx given, ER visit, hospitalization, or billing question Diagnosis changed due to Research Module. Go to Snapshot for study details. documented as of this encounter (statuses as of 12/30/2023) Immunizations Name Administration Dates Next Due COVID-19 [...] this encounter Progress Notes * Radha Toscano, [facility] - 12/30/2023 8:43 AM EDT MEDICATION THERAPY MANAGEMENT CAPIVASERTIB TREATMENT PROGRESS NOTE Shante Cordoba [id number] Patient Phone Numbers Preferred Lab: [place] [facility]: [facility] Communication: Spoke to: Patient Treatment: Medication: Capivasertib (Truqap) Indication/Staging/Diagnosis Code: Metastatic Breast Cancer, ER+, SC+, HER2-, PIK3CA mutation C50.811, C50.812, Z17.0 Dose: 400 mg twice daily (~12 hours apart) for 4 consecutive days, followed by 3 days off (administer capivasertib on days 1 to 4 of each week) Administration: +/- food Start Date: 12/19/23 Primary Jigger Artisan/Oncologist: Dr. Yeimy Infante [id number] Study Additional Therapy: Fulvestrant Supportive Care Meds: Cetirizine Ondansetron Loperamide Urea Cream Treatment History: -S/P bilateral mastectomies followed by immediate reconstruction (April,) -Dose dense AC followed by weekly paclitaxel between 05/22/2012-11/01/2012 Adjuvant radiation treatment completed in January,. - had Zoladex -S/P bilateral oophorectomy in January, (no hysterectomy) -tamoxifen between January [id number] 2020. - Letrozole and ribociclib between 10/2019 -09/2023 (discontinued because of disease progression mainly in the abdomen Interval History: Confirms applying urea cream and denies HFS Confirms cetirizine administration and denies rash Continues to endorse intermittent diarrhea. States symptoms are not bad and denies loperamide use or dehydration Confirms taking ondansetron with each capivasertib dose for N/V ppx and denies breakthrough nausea or additional antiemetic use States she received refill reminder text but was unsure if from [facility] or [facility] No other concerns, tolerating therapy well Changes to medication list since last visit? No Assessment and Plan: FBG WNL ANC declining to grade 1/2 neutropenia Per PI, no dose adjustment for ANC > 1000 Will monitor closely All other labs stable Continue urea cream for HFS ppx Continue cetirizine for rash ppx Pt understands to use loperamide (MDD 16mg) if needed for diarrhea Continue ondansetron for N/V ppx Per discussion with KATINA Head PharmD, P rolling out refill reminder texts that does not haveoption to refill RX but a courtesy reminder to call if needed Continue current therapy and q2wk Assessment of compliance: compliant Assessment of adverse effects attributed to drug therapy: Rash- absent Edema- absent Hyperglycemia- absent Diarrhea- present Nausea/vomiting- absent Dose adjustment needed based on lab or adverse drug reaction? No Follow up: 1 week Radha Toscano, RereD, BCOP Clinical Pharmacist, [facility] Oral Chemotherapy [facility] 12/30/2023, 10:47 AM Monitoring Parameters: Estimated CrCl Serum creatinine: [...] Pertinent Labs: Latest Reference Range & Units 11/21/23 07:36 12/29/23 07:41 Hemoglobin A1C 4.0 - 5.6 % 5.1 5.3 Latest Reference Range & Units 11/21/23 07:36 12/29/23 07:41 Estimated Average Glucose <126 mg/dL 100 105 Fasting Plasma Glucose 70 - 99 mg/dL 80 84 Latest Reference Range & Units 11/21/23 07:36 12/29/23 07:41 WBC 4.00 - 10.80 K/uL 3.60 (L) 3.32 (L) RBC 3.85 - 5.15 M/uL 4.15 4.34 HGB 12.0 - 15.3 g/dL 13.1 13.4 HCT 36.0 - 45.2 % 40.6 41.0 MCV 81.5 - 97.5 fL 97.8 94.5 MCH 27.0 - 34.0 pg 31.6 30.9 MCHC 32.0 - 36.0 g/dL 32.3 32.7 RDW 11.5 - 15.5 % 13.3 12.7 PLT 140 - 400 K/uL 246 253 MPV 6.6 - 11.1 fL 10.5 11.1 CBC WITH WBC DIFFERENTIAL Rpt ! Rpt ! Absolute Neutrophils 1.80 - 7.70 K/uL 1.73 (L) 1.50 (L) Latest Reference Range & Units 11/21/23 07:36 12/29/23 07:41 Albumin 3.8 - 5.0 g/dL 4.2 4.0 AST 10 - 35 U/L 27 23 ALT 10 - 35 U/L 28 27 Alkaline Phosphatase 35 - 130 U/L 57 50 Bilirubin, Total <=1.2 mg/dL 0.3 <0.2 Time Spent on Encounter: 6 - 10 minutes Encounter Group: Oncology Encounter Interventions Item Category: Oral Chemotherapy Other: Capivasertib Problem/Rationale: Safety: Needs additional monitoring - Medication Requires monitoring Pharmacist Intervention(s): Lab monitoring and Toxicity monitoring Magnitude of Intervention: Monitoring [...] 9:45 AM EDT Pharmacy Pharmacy Hematology Oncology [address] [address] [facility] Hem/Onc [address] [place] [address] 01/16/2024 8:30 AM EDT Office Visit Hematology/Oncology [address] [place] [address] Gabriela Norris CRNP [address] [place] [address] 01/16/2024 9:00 AM EDT Immunization/Inject ion Hematology/Oncology Treatment, [place] [address] [facility] [place] [address] Gisele, Chair 3 Hem Onc [address] [place] [address] 03/13/2024 10:45 AM EDT Imaging Radiology [facility] [place] [address] [facility] [place] [address] 05/25/2024 10:40 AM EDT Office Visit General Internal Medicine [facility] [address] [place] [address] Susie White MD 200 [facility] [place] [address] 07/24/2024 11:00 AM EST Office Visit Dermatology, [place] [address] [facility], [place] [address] Donita Cornejo, AUTUMN [address] [place] [address] [place] [address] Scheduled Procedures Name Priority Associated Diagnoses Date/Ti [...] 024, 10/28/2022, 10/12/2021 CKD PHOS USE SMARTSET 92274 11/20/202411/06, 12/01/2022, 10/12/2021, Additional history exists CKD HGB USE SMARTSET 19086 12/28/202412/28, 12/29/2023, 11/21/2023, Additional history exists Pneumococcal [...] this encounter Medical Devices Implanted Type Area Grab Hooker Device Identifier Shelf Expiration Date Model / Serial / Lot Implant Hi Prof Gel 750cc - [id number] [place]planted:[place] 1 [place] [facility] [place] MENTOR DARVIN 11/30/2013 350-7504BC / [id number] / [id number] Implant Hi Prof Gel 750cc - [id number] Implanted:Qty: 1 on 07/02/2013 [place] [facility] [place] Breast MENTOR DARVIN 04/01/2014 350-7504BC / [id number] / [id number] documented as of this encounter Visit Diagnoses [...] Directives occurred with: Not Discussed Care Teams Licensed Occupational Therapist Relationship Specialty Start Date End Date Mainali, Susie, MD [address] [place] [address] PCP - General Internal Medicine 03/02/12 documented as of this encounter
--- OUTSIDE RECORDS SUMMARY | 2024-02-18 11:33 | External Medical Summary ---
Author Name Unknown Address Unknown Organization : Laboratory Report Ordering Provider Test Date Status RISA JENKINS 12/09/2023 14:39:08 Final Observation Date Value Abnormality Reference (Units ) Status Cancer Ag 27-12/09/2023 14:39:08 916 Above high nor mal <38 (U/mL) Final This test was performed usin g the Siemens chemilumi-
nescent method. Values obtained from different assay
methods cannot be used interchangeably. CA27.29
levels, regardless of value, should not be interpreted
as absolute evidence of the presence or absence of
disease.

Test Performed at:
[facility]
[address] [facility]
[place] [address]
Renny Curry M.D., Ph.D.,Director of Laboratories Performing Location
--- OUTSIDE RECORDS SUMMARY | 2024-02-18 11:33 | External Medical Summary | Summary of Care ---
Author Name Unknown Organization [facility] Address [address] [place] [address] Phone [phone] Care Team Providers Care Assembler Small Products Name Role Phone Susie White MD Primary Care Provider [phone] Reason for Visit * Reason Comments Medication Management Encounter Details Date Type Department Care Team (Late st Contact Info) Description 12/16/2023 9:45 AM EDT Pharmacy Pharmacy Hematology Oncology [facility] [address] [place] [address] [facility] [facility] Hem/Onc [address] [place], [place] [id number] Malignant neoplasm of overlapping sites of both breasts in female, estrogen receptor positive (HCC)* Allergies No known active allergiesdocumented as of this encounter (statuses as of 12/16/2023) Medications Medication Sig Dispensed Refills Start Date [...] as of this encounter (statuses as of 12/16/2023) Active Problems Problem Noted Date Diagnosed Date [...] as of this encounter (statuses as of 12/16/2023) Resolved Problems Problem Noted Date Diagnosed Date [...] CRC Name: Molly LIND Contact PI or NEONATAL SPECIALIST regarding any serious medical event, if [...] Name: Molly Chowdhury CRC Contact PI or NEONATAL SPECIALIST regarding any serious medical event, if new Rx given, ER visit, hospitalization, or billing question Diagnosis changed due to Research Module. Go to Snapshot for study details. documented as of this encounter (statuses as of 12/16/2023) Immunizations Name Administration Dates Next Due COVID-19 [...] this encounter Progress Notes * Radha Toscano, [facility] - 12/16/2023 12:45 PM EDT MEDICATION THERAPY MANAGEMENT CAPIVASERTIB TREATMENT EDUCATION NOTE Shante Cordoba [phone] Patient Phone Numbers Preferred Lab: [facility]: [facility] ([facility] copy below into specialty comments) Treatment consent complete: yes Date: 11/25/23 Precertification complete: yes Date: 12/01/23 Communication: Spoke to: Patient Treatment: Medication: Capivasertib (Truqap) Indication/Staging/Diagnosis Code: Metastatic Breast Cancer, ER+, CA+, HER2-, PIK3CA mutation C50.811, C50.812, Z17.0 Dose: 400 mg twice daily (~12 hours apart) for 4 consecutive days, followed by 3 days off (administer capivasertib on days 1 to 4 of each week) Administration: +/- food Start Date: 5/13/24 Primary Pricing Actuary/Oncologist: Dr. Yeimy Infante [id number] Study Additional Therapy: Fulvestrant Supportive Care Meds: Cetirizine Ondansetron Loperamide Urea Cream Treatment History: -S/P bilateral mastectomies followed by immediate reconstruction (April,) -Dose dense AC followed by weekly paclitaxel between 05/22/2012-11/01/2012 Adjuvant radiation treatment completed in January,. - had Zoladex -S/P bilateral oophorectomy in January, (no hysterectomy) -tamoxifen between January [id number] 2020. - Letrozole and ribociclib between 10/2019 -09/2023 (discontinued because of disease progression mainly in the abdomen Medication education: Confirmed pt has received information regarding goals and duration of therapy: yes Reviewed dosing and administration: yes Reviewed importance of medication compliance (document recommendations if barriers identified): yes Reviewed appropriate storage conditions: yes Reviewed handling precautions: yes Reviewed handling body fluids and waste: yes Reviewed side effects, monitoring, and supportive care measures: yes Rash This medication may cause a rash. Severity can vary from being mild to severe, necessitating interruption of your chemotherapy treatment Moisturize your skin Avoid scented lotions, perfumes, colognes Avoid extreme heat Minimize sun exposure and wear sunscreen and protective clothing When to call clinic: If rash develops Edema This medication may cause swelling and fluid accumulation. This occurs most frequently in the legs,but can also occur in the lungs. Avoid standing for long periods of time Advised to elevate legs above chest level when laying down Use of compression stockings When to call clinic: If symptoms persist, > 5 lb weight gain in one week, SOB develops. A medication called a diuretic may be prescribed to manage this side effect. Hyperglycemia This medication may increase your blood glucose Review plan for lab monitoring (drug-specific) Monitor and report symptoms such as: Increased thirst Frequent urination Dry mouth Blurred vision Blood glucose > 160 mg/dL Diarrhea This medication can cause loose stools You can purchase OTC loperamide (Imodium A-D) to help manage this side effect (4 mg x 1, followed by 2 mg Q4H or after every loose stool, not to exceed 16 mg/day) Drink plenty of fluids to prevent dehydration, ideally 8-10 glasses per day (unless a healthcare provider has instructed you to limit your fluid intake due to other health conditions) Dietary modifications: eat bland, low fiber foods such as bananas, rice, applesauce, and toast (BRAT diet), avoid dairy, avoid spicy, greasy or fatty foods When to call clinic: If approaching maximum dose of loperamide and still having diarrhea or if you have any s/sx of dehydration; if there is a concern for infectious diarrhea (especially in setting of neutropenia) Nausea/vomiting This medication may cause nausea or vomiting Low/Minimal emetic risk: Zofran/Compazine PRN, but if consistently nauseated, can administer Cizlsq32 minutes prior to chemotherapy Dietary modifications: avoid spicy, greasy, fatty foods If vomiting, increase water intake to avoid dehydration When to call clinic: N/V refractory to antiemetics or if unable to keep up with oral intake HFS This medication can cause blisters, peeling and burning of the skin on the palms of your hands and the soles of your feet Avoid wearing tight-fitting shoes, as well as rigorous exercise, as they can increase friction on the soles of your feet Use luke warm water when taking a shower, washing your hands, washing the dishes Apply Udderly Smooth Extra Care (urea 20% cream) to hands and feet twice daily When to call clinic: If you develop pain/burning, redness, peeling, or blistering Confirmed pt has received written information about drug therapy: yes Changes to medication list since last visit: no Drug interaction assessment: Treatment plan and current medication list evaluated for drug-drug interactions. No clinically significant drug interaction identified Does patient rely on caregiver for medication management? no Assessment and plan: Pt verbalized understanding to information provided. All questions answered to the patient's satisfaction Pt was educated about role of Oral Chemotherapy Clinic and pharmacist in medication management, andplan for follow up. MTM to follow up in 1 week to confirm start date and tolerability Follow up: 1 week Radha Toscano, PharmD, BCOP Clinical Pharmacist, [facility] Oral Chemotherapy [facility] 12/16/2023, 1:24 PM Monitoring Parameters: Estimated CrCl Serum creatinine: [...] Pertinent Labs: N/A Time Spent on Encounter: 16 - 20 minutes Encounter Group: Oncology Encounter Interventions Item Category: Oral Chemotherapy Other: Capivasertib Problem/Rationale: Indication: Needs additional medication therapy - Untreated condition Education: Initial education Pharmacist Intervention(s): Education provided Magnitude of Intervention: Monitoring with direction (Level 1) Second Item Second Item Category: Topicals Urea Problem/Rationale: Indication: Needs additional medication therapy - Preventive therapy Education: Initial education Pharmacist Intervention(s): Education provided Magnitude of Intervention: Monitoring with direction (Level 1) Third Item Third Item Category: Antihistamine Certrizine Problem/Rationale: Indication: Needs additional medication therapy - Preventive therapy Education: Initial education Pharmacist Intervention(s): Education provided Magnitude of Intervention: Monitoring with direction (Level 1) documented in this encounter Plan of Treatment Upcoming Encounters Date Type Department Care Team (Late st Contact Info) Description 12/20/2023 10:15 AM EDT Immunization/Inject ion Hematology/Oncology Treatment[address] [phone] Nurse, Med [address] [place] [address], [place] [address] 12/23/2023 9:45 AM EDT Pharmacy Pharmacy Hematology Oncology [facility] [address] [place] [address] [facility]c [address] [place] [address] 01/19/2024 9:00 AM EDT Office Visit Hematology/Oncology [address] [phone] Gabriela Norris CRNP [address] [place] [address] 01/19/2024 9:30 AM EDT Immunization/Inject ion Hematology/Oncology [place], [place] [address] [place] [phone] Nurse, Med 200 [facility] [place] [address] 03/13/2024 10:45 AM EDT Imaging Radiology [facility]st [facility], [place] [address] [facility] [place] [address] 05/25/2024 10:40 AM EDT Office Visit General Internal Medicine [facility] 200 [facility] [place] [address] Susie White MD 200 [facility] [place] [address] 07/24/2024 11:00 AM EST Office Visit [address] [place] [address] Donita Cornejo PA-C [address] [place] [address] [place] [address] Scheduled Procedures Name Priority Associated Diagnoses Date/Ti [...] 024, 10/28/2022, 10/12/2021 CKD HGB USE SMARTSET 82456 11/20/202411/20, 11/21/2023, 07/18/2023, Additional history exists CKD PHOS USE SMARTSET 24499 11/20/202411/06, 12/01/2022, 10/12/2021, Additional history exists Pneumococcal [...] this encounter Medical Devices Implanted Type Area Radiology Equipment Servicer Device Identifier Shelf Expiration Date Model / Serial / Lot Implant Hi Prof Gel 750cc - [id number] Implanted:Qty: 1 on 07/02/2013 at [place] [facility] [place] Right: Breast MENTOR DARVIN 11/30/2013 350-7504BC / [id number] / [id number] Implant Hi Prof Gel 750cc - [id number] Implanted:Qty: 1 on 07/02/2013 at OR [facility] [place] Left: Breast MENTOR DARVIN 04/01/2014 350-7504BC / [id number] / [id number] documented as of this encounter Visit Diagnoses [...] Directives occurred with: Not Discussed Care Teams Assembler Small Products Relationship Specialty Start Date End Date Susie White MD [address] [place] [address] PCP - General Internal Medicine 03/02/12 documented as of this encounter
--- OUTSIDE RECORDS SUMMARY | 2024-02-18 11:33 | External Medical Summary ---
Author Name Unknown Address Unknown Organization [id number]:[facility] [place] [address] [facility] [place] [address] Laboratory Report Ordering Provider Test Date Status RISA JENKINS 12/29/2023 07:41:59 Final Observation Date Value Abnormality Reference (Units ) Status SYNC LEUKOCYTES IN BLOOD BY AUTOMATED COUNT 12/29/2023 07:41:59 3.32 Below low normal 4.00-10.80 (K/uL) Final Segs 12/29/2023 07:41:59 45.3 40.0-75.0 (%) Final Lymphs % 12/29/2023 07:41:59 36.7 18.0-42.0 (%) Final Monos 12/29/2023 07:41:59 10.8 1.0-11.0 (%) Final Eosinophils 12/29/2023 07:41:59 5.1 0.0-6.0 (%) Final Basos 12/29/2023 07:41:59 2.1 Above high normal 0.0-2.0 (%) Final Immature Granulocyte, Percent 12/29/2023 07:41:59 0.0 0.0-2.0 (%) Final Absolute Segs 12/29/2023 07:41:59 1.50 Below low normal 1.80-7.70 (K/uL) Final Lymphs, absolute 12/29/2023 07:41:59 1.22 1.00-4.80 (K/ul) Final Monos, Abs 12/29/2023 07:41:59 0.36 0.00-1.10 (K/uL) Final Eos, Abs 12/29/2023 07:41:59 0.17 0.00-0.70 (K/uL) Final Basos, Abs 12/29/2023 07:41:59 0.07 0.00-0.20 (K/uL) Final Immature Granulocytes, Number 12/29/2023 07:41:59 0.00 0.00-0.20 (K/uL) Final Performing Location [facility] [address]. [facility] [address]
--- OUTSIDE RECORDS SUMMARY | 2024-02-18 11:33 | External Medical Summary ---
Author Name Unknown Address Unknown Organization [id number][place] [place] [address] [facility] [address] [facility] [address] Laboratory Report Ordering Provider Test Date Status RISA JENKINS 12/29/2023 07:41:59 Final Observation Date Value Abnormality Reference (Units ) Status WBC, Total 12/29/2023 07:41:59 3.32 Below low normal 4.00-10.80 (K/uL) Final RBC 12/29/2023 07:41:59 4.34 3.85-5.15 (M/uL) Final Hemoglobin 12/29/2023 07:41:59 13.4 12.0-15.3 (g/dL) Final HCT 12/29/2023 07:41:59 41.0 36.0-45.2 (%) Final MCV 12/29/2023 07:41:59 94.5 81.5-97.5 (fL) Final MCH 12/29/2023 07:41:59 30.9 27.0-34.0 (pg) Final MCHC 12/29/2023 07:41:59 32.7 32.0-36.0 (g/dL) Final RDW 12/29/2023 07:41:59 12.7 11.5-15.5 (%) Final Platelets 12/29/2023 07:41:59 253 140-400 (K/uL) Final MPV 12/29/2023 07:41:59 11.1 6.6-11.1 (fL) Final Nucleated erythrocytes/100 leukocytes [Ratio] in Blood by Automated count 12/29/2023 07:41:59 0 <=0 (/100 WBCs) Final Performing Location [facility] [place] [address] [place] [address]
--- OUTSIDE RECORDS SUMMARY | 2024-02-18 11:33 | External Medical Summary | Summary of Care ---
Author Name Unknown Organization [facility] Address [address] [place] [address] Phone [phone] Care Team Providers Care Mail Delivery Supervisor Name Role Phone Susie White MD Primary Care Provider [phone] Reason for Visit * Reason Onset Date Comments Precert Future 11/15/2023 Encounter Details Date Type Department Care Team (Late st Contact Info) Description 11/15/2023 Telephone Hematology/Oncology Treatment, [place] [address] [place] [address] Clarence Patel MD [address] [place], [place] [phone] Precert Future Allergies No known active allergiesdocumented [...] MD PI CRC Name: Molly Chowdhury [facility] Contact PI or CONSULTING SME regarding any serious medical event, if new [...] MD PI CRC Name: Molly Chowdhury [facility] Contact PI or CONSULTING SME regarding any serious medical event, if new [...] is 12/11. * Telephone Encounter - Jacqueline Velasquze RN - 12/06/2023 10:51 AM EDT Called [...] patient for applying for free medication through ear nose throat surgeon, will follow up. * Telephone Encounter - Renny Grigsby RN - 12/01/2023 2:09 PM EDT Auth Approved by insurance, referral entered. MTM- FYI * Telephone Encounter - Jacqueline Velasquez RN - 11/29/2023 1:56 PM EDT Referral entered- this was DENIED. Letter for appeal faxed. * Telephone Encounter - eRnny Grigsby RN - 11/25/2023 4:09 PM EDT Pt education completed, consent signed with Dr. Infante. * Telephone Encounter - Renny Grigsby RN - 11/25/2023 12:55 PM EDT Hep B labs were completed. Awaiting referral. Education scheduled today. * Telephone Encounter - Jacqueline Velasquez RN - 11/15/2023 8:15 AM EDT Order received for capivasertib (truqap). Patient has [facility] appt today to build beacon. Waiting for [...] 1:45 PM EDT Pharmacy Pharmacy Hematology Oncology [address] [address] [facility], [facility] Hem/Onc [address] [place] [address] Malignant neoplasm of overlapping sites of both breasts in female, estrogen receptor positive (HCC)* 12/12/2023 9:45 AM EDT Pharmacy Pharmacy Hematology Oncology [facility], [place] [address] [place] [address] [facility] Hem[facility]Onc [address] [place] [address] 12/15/2023 2:45 PM EDT Office Visit Hematology/Oncology [facility] [place] [address] [facility] [place] [phone] Cory Infante MD 200 [facility] [place] [address] 12/20/2023 10:15 AM EDT Immunization/Inje ction Hematology[facility]Oncology [facility] [place] [facility] [phone] Nurse, Med 4 [address] [facility] [place] [address] 01/17/2024 10:15 AM EDT Immunization/Inje ction Hematology/Oncology Treatment, [address], [place] [phone] Nurse, Med 4 200 [facility] [place] [address] [address] 05/25/2024 10:40 AM EDT Office Visit General Internal Medicine [facility] [place] [address] [facility] [place] [address] Susie White MD 200 [facility] [place] [address] 07/24/2024 11:00 AM EST Office Visit Dermatology[address] [place] [address] Donita Cornejo PA-C [address] [place] [address] [place] [address] Scheduled Procedures Name Priority Associated Diagnoses Date/Ti [...] 024, 10/28/2022, 10/12/2021 CKD HGB USE SMARTSET 27328 11/20/202411/20, 11/21/2023, 07/18/2023, Additional history exists CKD PHOS USE SMARTSET 24860 11/20/202411/06, 12/01/2022, 10/12/2021, Additional history exists Pneumococcal [...] this encounter Medical Devices Implanted Type Area Railroad Car Painter Device Identifier Shelf Expiration Date Model / Serial / Lot Implant Hi Prof Gel 750cc - [id number] [place]ed:[place] [facility] [place] Breast MENTOR DARVIN 11/30/2013 350-7504BC / [id number] / [id number] Implant Hi Prof Gel 750cc - [id number] Implanted:Qty: 1 [place] 07[place]02/2013 [place] [facility] [place]: Breast MENTOR DARVIN 04/01/2014 350-7504BC / [id number] / [id number] documented as of this encounter Results * HEMOGLOBIN A1C (11/21/2023 7:36 AM EDT) [facility] Hemoglobin A1C 5.1 4.0 - 5.6 % 11/21/2023 7:12 PM EDT [place] [facility] [place]:The use of HbA1c to monitor glycemic status is based on normal hemoglobin and HbA composition. This test should not be used in patients with abnormal hemoglobin that affects the half life of the red blood cell or the in vivo glycation rates. Estimated Average Glucose 100 <126 mg/dL 11/21/2023 7:12 PM EDT [place] [facility] [place] Blood Venous blood specimen / Unknown Venipuncture / Unknown 11/21/2023 7:36 AM EDT 11/21/2023 7:37 AM EDT Clarence Patel MD LAB BLOOD ORDERA BLES [facility] [place] [address] [place] [address] * (ABNORMAL) COMPREHENSIVE METABOLIC PANEL (11/21/2023 7:36 AM EDT) [facility] BUN 13 6 - 20 mg/dL 11/21/2023 7:43 PM EDT [facility] [place] Creatinine 1.1(H) 0.5 - 1.0 mg/dL 11/21/2023 7:43 PM EDT [facility] [place] Estimated Glomerular Filtration Rate 60 >=60 mL/min [...] BLOOD ORDERA BLES LABORATORY [facility] [address] [place] [address] * HEPATITIS B CORE ANTIBODIES IGG AND IGM (11/21/2023 7:36 AM EDT) Hepatitis B Core Antibodies IgG and IgM Negative Negative 11/21/2023 8:09 PM EDT [place] [facility] [place] Blood Venous blood specimen / Unknown Venipuncture / Unknown 11/21/2023 7:36 AM EDT 11/21/2023 7:37 AM EDT Clarence Patel MD LAB BLOOD ORDERA BLES Performing Organization Address [facility] Co de Phone Number [facility] [place] [address] [place] [address] * HEPATITIS B SURFACE ANTIGEN (11/21/2023 7:36 AM EDT) [facility] Hepatitis B Surface Antigen Negative Negative 11/21/2023 8:09 PM EDT [facility] [place] Blood Venous blood specimen / Unknown Venipuncture / Unknown 11/21/2023 7:36 AM EDT 11/21/2023 7:37 AM EDT Clarence Patel MD LAB BLOOD ORDERA BLES Performing Organization Address [facility] de Phone Number LABORATORY [place] [address] [place] [address] * HEPATITIS B SURFACE ANTIBODY (11/21/2023 7:36 AM EDT) [facility] Hepatitis B Surface Antibody, Quantitative <3.5 mIU/mL 11/21/2023 8:09 PM EDT [facility] [place] Hepatitis B Surface Antibody, Qualitative Negative 11/21/2023 8:09 PM EDT [facility] [place] Hepatitis B Surface Antibody, Interpretation NOT immune to Hepatitis B Virus 11/21/2023 8:09 PM EDT [facility] [place] Comment: POSITIVE: >=11.5 mIU/mL INDETERMINATE: 8.5-<11.5 mIU/mL NEGATIVE: <8.5 mIU/mL Blood Venous blood specimen / Unknown Venipuncture / Unknown 11/21/2023 7:36 AM EDT 11/21/2023 7:37 AM EDT Clarence Patel MD LAB BLOOD ORDERA JAYASHREE [facility] [place] [address] [place] [address] documented in this encounter Visit Diagnoses Diagnosis [...] Directives occurred with: Not Discussed Care Teams Mail Delivery Supervisor Relationship Specialty Start Date End Date Susie White MD [address] [place] [address] PCP - General Internal Medicine 03/02/12 documented as of this encounter
--- OUTSIDE RECORDS SUMMARY | 2024-02-18 11:33 | External Medical Summary | Summary of Care ---
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) Malignant neoplasm of overlapping sites of both breasts in female, estrogen receptor positive (HCC) Procedures DE INJECTION, FULVESTRANT Cory Infante MD [address] [place] [address] Anc Hem/Onc [address] [address] Referral ID Status Reason Start Date Expiration Date V isits Requested Visits Authorized [id number] Authorized 09/16/2023 03/13/2024 999 [id number] Encounter Details Date Type Department Care Team (Late st Contact Info) Description 12/20/2023 10:15 AM EDT Immunization/I njection Hematology/Oncology Treatment, [address] [address] Nurse, Med [address] [place] [address] [place] [address] 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)*; 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); Malignant neoplasm of overlapping sites of both breasts in female, estrogen receptor positive (HCC) Allergies No known active allergiesdocumented as of this encounter (statuses as of 12/20/2023) Medications Medication Sig Dispensed Refills Start Date [...] as of this encounter (statuses as of 12/20/2023) Active Problems Problem Noted Date Diagnosed Date [...] as of this encounter (statuses as of 12/20/2023) Resolved Problems Problem Noted Date Diagnosed Date [...] [facility] Contact PI or BREAD WRAPPER regarding any serious medical event, if new [...] [facility] Contact PI or BREAD WRAPPER regarding any serious medical event, if new Rx given, ER visit, hospitalization, or billing question Diagnosis changed due to Research Module. Go to Snapshot for study details. documented as of this encounter (statuses as of 12/20/2023) Immunizations Name Administration Dates Next Due COVID-19 [...] 9:45 AM EDT Pharmacy Pharmacy Hematology Oncology [facility] [address] [place] [address] [facility], [facility] Hem/Onc [address] [place] [address] 01/16/2024 8:30 AM EDT Office Visit Hematology/Oncology [address] [place] [phone] [facility] Norris [facility] [address] 01/16/2024 9:00 AM EDT Immunization/Inject ion Hematology/Oncology Treatment, [place] [address] [facility] [place] [phone] Gisele, Chair [address] On[address] [place] [address] 03/13/2024 10:45 AM EDT Imaging Radiology [facility] 1st [facility], [place] 132 [facility] [place] [address] 05/25/2024 10:40 AM EDT Office Visit General Internal Medicine [facility] [address] [place] [address] Susie White MD [address] [place] [address] [facility] [place] [address] 07/24/2024 11:00 AM EST Office Visit Dermatology[address] [address] ClementeDonita vazquez PA-C [address] [place] [address] [place] [address] Scheduled Procedures Name Priority Associated Diagnoses Date/Ti [...] 024, 10/28/2022, 10/12/2021 CKD HGB USE SMARTSET 66668 11/20/202411/20, 11/21/2023, 07/18/2023, Additional history exists CKD PHOS USE SMARTSET 40030 11/20/202411/06, 12/01/2022, 10/12/2021, Additional history exists Pneumococcal [...] this encounter Medical Devices Implanted Type Area City Recorder Device Identifier Shelf Expiration Date Model / Serial / Lot Implant Hi Prof Gel 750cc - [id number] Implanted:Qty: 1 on 07/02/2013 [place] [facility] [place] Right: Breast MENTOR DARVIN 11/30/2013 350-7504BC / [id number] / [id number] Implant Hi Prof Gel 750cc - [id number] Implanted:Qty: 1 on 07/02/2013 at [place] [facility] [place] Left: Breast MENTOR DARVIN 04/01/2014 350-7504BC / [id number] / [id number] documented as of this encounter Visit Diagnoses [...] Left documented in this encounter Advance Directives Latest [...] Directives occurred with: Not Discussed Care Teams Warehouse Attendant Relationship Specialty Start Date End Date Susie White MD 200 [place] [address] PCP - General Internal Medicine 03/02/12 documented as of this encounter
--- OUTSIDE RECORDS SUMMARY | 2024-02-18 11:33 | External Medical Summary | Summary of Care ---
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) Malignant neoplasm of overlapping sites of both breasts in female, estrogen receptor positive (HCC) Procedures [place] INJECTION, FULVESTRANT Cory Infante MD 200 [facility] [place] [address] Anc Hem/Onc [address] [address] Referral ID Status Reason Start Date Expiration Date V isits Requested Visits Authorized [id number] Authorized 09/16/2023 03/13/2024 999 [id number] Encounter Details Date Type Department Care Team (Late st Contact Info) Description 10/25/2023 10:15 AM EDT Immunization/I njection Hematology/Oncology Treatment, [address] [address] Nurse, Med 200 [facility] [place] [address] 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 90 Tablet 3 10/12/2022 4 Discontinued Sennosides-Docusate Sodium 8.6-50 MG Oral Capsule Take 2 Tablets by mouth daily. Add 2 more at night if needed 0 07/18/2023 4 Discontinued Amoxicillin-Pot Clavulanate 875-125 MG Oral Tablet (Augmentin) Take 1 Tablet by mouth in the morning and 1 Tablet before bedtime. 0 09/05/2023 4 Discontinued oxyCODONE-Acetaminop hen 5-325 MG Oral Tablet (Percocet) Take 1 Tablet by mouth every 4 hours as needed for Pain, Moderate. 0 09/02/2023 4 Discontinued documented as of this encounter (statuses as of 12/09/2023) Active Problems Problem Noted Date Diagnosed Date [...] as of this encounter (statuses as of 12/09/2023) Resolved Problems Problem Noted Date Diagnosed Date [...] [facility] Contact PI or SHIPPING POINT INSPECTOR regarding any serious medical event, if new [...] [facility] Contact PI or SHIPPING POINT INSPECTOR regarding any serious medical event, if new Rx given, ER visit, hospitalization, or billing question Diagnosis changed due to Research Module. Go to Snapshot for study details. documented as of this encounter (statuses as of 12/09/2023) Immunizations Name Administration Dates Next Due COVID-19 [...] as of this encounter Nursing Notes * Mercedes Lozada LPN - 10/25/2023 10:36 AM EDT Pt arrived for Faslodex injection. Administered in B/L dorsogluteal. Pt tolerated well. Pt reports she is still having some discomfort from her last Faslodex injection. Reports its kind of tingly at times but not intolerable. To return in 4 weeks. Discharged in stable condition. documented in this encounter Plan of Treatment Upcoming Encounters Date Type Department Care Team (Late st Contact Info) Description 12/15/2023 2:45 PM EDT Office Visit Hematology/Oncology [facility] [address] [place] [address] Cory Infante MD [address] [place] [address] 12/16/2023 9:45 AM EDT Pharmacy Pharmacy Hematology Oncology [facility] [address] [place] [address] [facility], [facility] Hem/Onc [address] [place] [address] 12/20/2023 10:15 AM EDT Immunization/Inject ion Hematology/Oncology Treatment, [address] [place] [phone] Nurse, Med 4 [address] [facility] [place] [address] 01/17/2024 10:15 AM EDT Immunization/Inject ion Hematology/Oncology Treatment, [address] [place] [phone] Nurse, Med 4 [address] [facility] [place] [address] 05/25/2024 10:40 AM EDT Office Visit General Internal Medicine [facility] 200 [facility] [place] [address] Susie White MD 200 [facility] [place] [address] 07/24/2024 11:00 AM EST Office Visit [address] [address] Donita Cornejo PA-C [address] [place] [address] [place] [address] Scheduled Procedures Name Priority Associated Diagnoses Date/Ti [...] 024, 10/28/2022, 10/12/2021 CKD HGB USE SMARTSET 54327 11/20/202411/20, 11/21/2023, 07/18/2023, Additional history exists CKD PHOS USE SMARTSET 63758 11/20/202411/06, 12/01/2022, 10/12/2021, Additional history exists Pneumococcal [...] this encounter Medical Devices Implanted Type Area Bleaching Supervisor Device Identifier Shelf Expiration Date Model / Serial / Lot Implant Hi Prof Gel 750cc - [id number] Implanted:Qty: 1 on 07/02/2013 [place] [facility] [place]: Breast MENTOR DARVIN 11/30/2013 350-7504BC / [id number] / [id number] Implant Hi Prof Gel 750cc - [id number] Implanted:Qty: 1 on 07/02/2013 at [place] [facility] [place] Left: Breast MENTOR DARVIN 04/01/2014 350-7504BC / [id number] / [id number] documented as of this encounter Visit Diagnoses [...] 500 mg 500 mg, Intramuscular, ONCE, On Tue10/25/23 at 1130, For 1 dose Given 10/25/2023 10:26 AM EDT 500 mg Dorsogluteal Left documented [...] Directives occurred with: Not Discussed Care Teams Medical Review Specialist Relationship Specialty Start Date End Date Susie White MD 200 [facility] [place], [place] [address] PCP - General Internal Medicine 03/02/12 documented as of this encounter
--- OUTSIDE RECORDS SUMMARY | 2024-02-18 11:33 | External Medical Summary ---
Author Name Unknown Address Unknown Organization K01:[facility] [place] [address] [place] [address] Laboratory Report Ordering Provider Test Date Status RISA JENKINS 12/29/2023 07:41:59 Final Based on guidelines from [place] [employer]:
70-99 mg/dL Normal
100-125 mg/dL Pre-diabetes
>125 mg/dL Diabetes, diagnosis requires two abnormal diabetes diagnostic test results Observation Date Value Abnormality Reference (Units ) Status Fasting glucose [Moles/volume] in Serum or Plasma 12/29/2023 07:41:59 84 70-99 (mg/dL) Final Performing Location LABORATORY [facility] - [address] [place] [address]
--- OUTSIDE RECORDS SUMMARY | 2024-02-18 11:33 | External Medical Summary ---
Author Name Unknown Address Unknown Organization K01:[facility] [place] [address] [facility] [place] [address] Laboratory Report Ordering Provider Test Date Status RISA JENKINS 12/29/2023 07:41:59 Final Observation Date Value Abnormality Reference (Units ) Status BUN 12/29/2023 07:41:59 13 6-20 (mg/dL) Final Creatinine 12/29/2023 07:41:59 1.3 Above high normal 0.5-1.0 (mg/dL) Final Glomerular filtration rate/1.73 sq M.predicted [Volume Rate/Area] in Serum, Plasma or Blood by Creatinine-based formula (CKD-EPI) 12/29/2023 07:41:59 50 Below low normal >=60 (mL/min) Final eGFR is calculated based on the CKD-EPI 2020 equation Sodium 12/29/2023 07:41:59 143 135-146 (m mol/L) Final Potassium 12/29/2023 07:41:59 4.3 3.5-5.1 (m mol/L) Final Cl 12/29/2023 07:41:59 109 Above high normal 98 -107 (mmol/L) Final CO2 12/29/2023 07:41:59 23 22-32 (mmo l/L) Final Anion gap 12/29/2023 07:41:59 11 7-15 (mmol /L) Final Glucose 12/29/2023 07:41:59 85 70-120 (mg /dL) Final Albumin 12/29/2023 07:41:59 4.0 3.8-5.0 (g /dL) Final AST (Aspartate aminotransferase) 12/29/2023 07:41:59 23 10-35 (U/L) Fin al Alk Phos 12/29/2023 07:41:59 50 35-130 (U/ L) Final Bilirubin, Total 12/29/2023 07:41:59 <0.2 <=1 .2 (mg/dL) Final Calcium 12/29/2023 07:41:59 9.5 8.4-10.2 ( mg/dL) Final Protein 12/29/2023 07:41:59 6.0 6.0-8.3 (g /dL) Final ALT (Alanine aminotransferase) 12/29/2023 07:41:59 27 10-35 (U/L) Chad donovan Performing Location [facility] [place] [facility] [address]. [facility] [address]
--- OUTSIDE RECORDS SUMMARY | 2024-02-18 11:33 | External Medical Summary | Summary of Care ---
Author Name Unknown Organization [facility] Address [address] [place] [address] Phone [phone] Care Team Providers Care Switchboard Mechanic Name Role Phone Susie White MD Primary Care Provider [phone] Reason for Visit * Reason Onset Date Comments Patient Assistance Program 12/01/2023 Jaxson monroy Encounter Details Date Type Department Care Team (Late st Contact Info) Description 12/01/2023 Telephone Hematology/Oncology, [facility] [address] [facility] [place] [address] Clarence Patel MD [address] [place] [address] Patient Assistance Program (Ashley ) Allergies No [...] Name: Molly Chowdhury [facility] Contact PI or POULTRY PACKER regarding any serious medical event, if new [...] Name: Molly Chowdhury [facility] Contact PI or POULTRY PACKER regarding any serious medical event, if new [...] could try free drug program through the fire hydrant mechanic. Applications mailed: : YES, emailed application to [email or web address] Follow up: 12/02/2023 Thank you, Ashley Munoz Medication Residential Sales Rep 12/01/2023, 11:11 AM * Telephone Encounter - Huma Uribe OSA - 12/01/2023 7:34 AM EDT [facility] Patient Assistance Request: Medication name: TRUQAP 200 MG TABS Insurance? commercial Co-pay amount: 100.00 Action needed: new funding inquiry Target ship date (if applicable): N/A IF HEM/ONC: Confirm [facility]: Yes All other department requests should be flagged in referral. Confirm encounter department selected is for prescribing physician: Yes If URGENT: Send TEAMS message to appropriate emergency department manager (see "Patient Assistance Guide" - ROUTING POOLS:[facility] on shared drive): [] Urgent message sent to: Thank you, LEN Olson [facility] Special[facility] 12/01/2023,7:34 AM documented in this encounter Plan of Treatment Upcoming Encounters Date Type Department Care Team (Late st Contact Info) Description 12/23/2023 9:45 AM EDT Pharmacy Pharmacy Hematology Oncology [facility] [address] [place] [place] [address] [facility] Hem/Onc [address] [place] [address] 01/16/2024 8:30 AM EDT Office Visit Hematology/Oncology [place] [facility] [address] Gabriela Norris CRNP [address] [place] [address] [place] [address] 01/16/2024 9:00 AM EDT Immunization/Inject ion Hematology/Oncology Treatment, [place] [address] [place] [phone] [place], Chair 3 Hem Onc Scen[address] [place] [address] 03/13/2024 10:45 AM EDT Imaging Radiology [facility] 1st [facility], [place] [address] [place] [address] 05/25/2024 10:40 AM EDT Office Visit General Internal Medicine [facility] [address] [place] [address] Susie White MD [address] [place] [address] 07/24/2024 11:00 AM EST Office Visit Dermat[address] [address] Donita Cornejo, AUTUMN [address] [place] [address] [place] [address] Scheduled Procedures Name Priority Associated Diagnoses Date/Ti [...] 024, 10/28/2022, 10/12/2021 CKD HGB USE SMARTSET 72024 11/20/202411/20, 11/21/2023, 07/18/2023, Additional history exists CKD PHOS USE SMARTSET 31439 11/20/202411/064, 12/01/2022, 10/12/2021, Additional history exists Pneumococcal Vaccine: [...] encounter Medical Devices Implanted Type Area Yard Cleaner Device Identifier Shelf Expiration Date Model / Serial / Lot Implant Hi Prof Gel 750cc - [id number] [place] [facility] [place] Breast MENTOR DARVIN 11/30/2013 350-7504BC / [id number] / [id number] Implant Hi Prof Gel 750cc - [id number] Implanted:Qty: 1 [place] 07[place]02[place] [facility] [place]: Breast MENTOR DARVIN 04/01/2014 350-7504BC / [id number] / [id number] documented as of this encounter Advance Directives [...] Directives occurred with: Not Discussed Care Teams Switchboard Mechanic Relationship Specialty Start Date End Date Susie White MD 200 [place] [address] PCP - General Internal Medicine 03/02/12 documented as of this encounter
--- OUTSIDE RECORDS SUMMARY | 2024-02-18 11:33 | External Medical Summary | Summary of Care ---
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); Malignant neoplasm of overlapping sites of both breasts in female, estrogen receptor positive (HCC); 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 [address] [place] [address] [facility], [facility] Hem/Onc [address] [place] [address] 12/20/2023 10:15 AM EDT Immunization/Inject ion Hematology/Oncology Treatment, [place] [facility] [phone] Nurse, Med 4 200 [facility] [place] [address] 01/17/2024 10:15 AM EDT Immunization/Inject ion Hematology/Oncology Treatment, [place] 200 [facility] [place] [phone] Nurse, Med 4 200 [facility] [place] [address] 05/25/2024 10:40 AM EDT Office Visit General Internal Medicine [facility] 200 [facility] [place] [address] Susie White MD 200 [facility] [place] [address] 07/24/2024 11:00 AM EST Office Visit Dermatology[address] [address] Donita Cornejo PA-C [address] [place] [address] [place] [address] Pending Results Name Type Priority Associated Diagnoses Date /Time CA 27.29 Lab Routine 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) Malignant neoplasm of overlapping sites of both breasts in female, estrogen receptor positive (HCC) 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) 12/09/2023 2:39 PM EDT CA 15-3 Lab Routine 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) Malignant neoplasm of overlapping sites of both breasts in female, estrogen receptor positive (HCC) 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) 12/09/2023 2:39 PM EDT Scheduled Procedures Name Priority Associated [...] 024, 10/28/2022, 10/12/2021 CKD HGB USE SMARTSET 57910 11/20/202411/20, 11/21/2023, 07/18/2023, Additional history exists CKD PHOS USE SMARTSET 05079 11/20/202411/06, 12/01/2022, 10/12/2021, Additional history exists Pneumococcal [...] this encounter Medical Devices Implanted Type Area Joint Sealer Device Identifier Shelf Expiration Date Model / Serial / Lot Implant Hi Prof Gel 750cc - [id number] Implanted:Qty: 1 on 07/02/2013 [place] [facility] [place] Right: Breast MENTOR DARVIN 11/30/2013 350-7504BC / [id number] / [id number] Implant Hi Prof Gel 750cc - [id number] Implanted:Qty: 1 on 07/02/2013 [place] [facility] [place] Left: Breast MENTOR DARVIN 04/01/2014 350-7504BC / [id number] / [id number] documented as of this encounter Visit Diagnoses Diagnosis 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
--- OUTSIDE RECORDS SUMMARY | 2024-02-18 11:34 | External Medical Summary | Summary of Care ---
Author Name Unknown Organization [facility] Address [address] [place] [address] Phone [phone] Care Team Providers Care Hosted Services Analyst Name Role Phone Susie White MD Primary Care Provider [phone] Reason for Visit * Reason Onset Date Comments Precert Future 11/15/2023 Encounter Details Date Type Department Care Team (Late st Contact Info) Description 11/15/2023 Telephone Hematology/Oncology Treatment, [place] [address] [place] [address] Clarence Patel MD [address] [place], [place] [phone] Precert Future Allergies No known active allergiesdocumented as of this encounter (statuses as of 12/05/2023) Medications Medication Sig Dispensed Refills Start Date [...] as of this encounter (statuses as of 12/05/2023) Active Problems Problem Noted Date Diagnosed Date [...] as of this encounter (statuses as of 12/05/2023) Resolved Problems Problem Noted Date Diagnosed Date [...] Name: Molly Chowdhury CRC Contact PI or ARTIFICIAL BREEDING DISTRIBUTOR regarding any serious medical event, if [...] Name: Molly Chowdhury CRC Contact PI or ARTIFICIAL BREEDING DISTRIBUTOR regarding any serious medical event, if new Rx given, ER visit, hospitalization, or billing question Diagnosis changed due to Research Module. Go to Snapshot for study details. documented as of this encounter (statuses as of 12/05/2023) Immunizations Name Administration Dates Next Due COVID-19 [...] patient for applying for free medication through client delivery manager, will follow up. * Telephone Encounter - [...] Order received for capivasertib (truqap). Patient has MTM appt today to build beacon. Waiting for [...] Care Team (Late st Contact Info) Description 12/06/2023 8:15 AM EDT Imaging Radiology [address], [address] [place] [address] 12/07/2023 1:45 PM EDT Pharmacy Pharmacy Hematology Oncology [facility] [address] [place] [address] [facility], [facility] Hem/Onc [address] [place] [address] 12/15/2023 2:45 PM EDT Office Visit Hematology/Oncology [facility] [address] [place] [address] Cory Infante MD 200 [facility] [place] [address] 12/20/2023 10:15 AM EDT Immunization/Inject ion Hematology/Oncology Treatment, [place] [facility] [phone] Nurse, Med [address] [place] [address] 01/17/2024 10:15 AM EDT Immunization/Inject ion Hematology/[address]cology [address], [address] [phone] Nurse, Med [address] [place] [address] 05/25/2024 10:40 AM EDT Office Visit General Internal Medicine [place] [facility] [place] [address] [place] [address] Susie White MD [address] [place] [address] 07/24/2024 11:00 AM EST Office Visit [facility] [address] [facility], [place] [address] Donita Cornejo, [place]UMN [address] [place] [address] [place] [address] Scheduled Procedures Name Priority Associated Diagnoses Date/Ti [...] 024, 10/28/2022, 10/12/2021 CKD HGB USE SMARTSET 08036 11/20/202411/20, 11/21/2023, 07/18/2023, Additional history exists CKD PHOS USE SMARTSET 25883 11/20/202411/06, 12/01/2022, 10/12/2021, Additional history exists Pneumococcal [...] this encounter Medical Devices Implanted Type Area Iron Worker Foreman Device Identifier Shelf Expiration Date Model / Serial / Lot Implant Hi Prof Gel 750cc - [id number] [place]planted:[place] [facility] [place]: Breast MENTOR DARVIN 11/30/2013 350-7504BC / [id number] / [id number] Implant Hi Prof Gel 750cc - [id number] Implanted:Qty: 1 on 07/02/2013 at [facility] Left: Breast MENTOR DARVIN 04/01/2014 350-7504BC / [id number] / [id number] documented as of this encounter Results * HEMOGLOBIN A1C (11/21/2023 7:36 AM EDT) [facility] Hemoglobin A1C 5.1 4.0 - 5.6 % 11/21/2023 7:12 PM EDT LABORATORY [facility] [place] Comment:The use of HbA1c to monitor glycemic status is based on normal hemoglobin and HbA composition. This test should not be used in patients with abnormal hemoglobin that affects the half life of the red blood cell or the in vivo glycation rates. Estimated Average Glucose 100 <126 mg/dL 11/21/2023 7:12 PM EDT [facility] [place] Blood Venous blood specimen / Unknown Venipuncture / Unknown 11/21/2023 7:36 AM EDT 11/21/2023 7:37 AM EDT Clarence Patel MD LAB BLOOD ORDERA BLES LAB[facility]ATORY [facility] [place] [address] [place] [address] * (ABNORMAL) COMPREHENSIVE METABOLIC PANEL (11/21/2023 7:36 AM EDT) BUN 13 6 - 20 mg/dL 11/21/2023 7:43 PM EDT [facility] Creatinine 1.1(H) 0.5 - 1.0 mg/dL 11/21/2023 7:43 PM EDT [facility] Estimated Glomerular Filtration Rate 60 >=60 mL/min [...] LAB BLOOD ORDERA BLES Performing Organization Address City/[facility]/ZIP Co de Phone Number [facility]ATORY [facility] [address] [place] [address] * HEPATITIS B CORE ANTIBODIES IGG AND IGM (11/21/2023 7:36 AM EDT) Hepatitis B Core Antibodies IgG and IgM Negative Negative 11/21/2023 8:09 PM EDT [facility] Blood Venous blood specimen / Unknown Venipuncture / Unknown 11/21/2023 7:36 AM EDT 11/21/2023 7:37 AM EDT Clarence Patel MD LAB BLOOD ORDERA BLES Performing Organization Address [facility]/ZIP Co de Phone Number LABORATORY [facility] [place] [address] [place] [address] * HEPATITIS B SURFACE ANTIGEN (11/21/2023 7:36 AM EDT) Hepatitis B Surface Antigen Negative Negative 11/21/2023 8:09 PM EDT LABORATORY C Blood Venous blood specimen / Unknown Venipuncture / Unknown 11/21/2023 7:36 AM EDT 11/21/2023 7:37 AM EDT Clarence Patel MD LAB BLOOD ORDERA BLES Performing Organization Address City/[facility]/ZIP Co de Phone Number [facility]ATORY [facility] [place] [address] [place] [address] * HEPATITIS B SURFACE ANTIBODY (11/21/2023 7:36 AM EDT) Hepatitis B Surface Antibody, Quantitative <3.5 mIU/mL 11/21/2023 8:09 PM EDT LAB[facility]ORY [facility] [place] Hepatitis B Surface Antibody, Qualitative Negative 11/21/2023 8:09 PM EDT LAB[facility]ORY [facility] [place] Hepatitis B Surface Antibody, Interpretation NOT immune to Hepatitis B Virus 11/21/2023 8:09 PM EDT LABORATORY [facility] [place] Comment: POSITIVE: >=11.5 mIU/mL INDETERMINATE: 8.5-<11.5 mIU/mL NEGATIVE: <8.5 mIU/mL Blood Venous blood specimen / Unknown Venipuncture / Unknown 11/21/2023 7:36 AM EDT 11/21/2023 7:37 AM EDT Clarence Patel MD LAB BLOOD ORDERA BLES LAB[facility]ATORY [facility] [place] [address] [place] [address] documented in this encounter Visit Diagnoses Diagnosis [...] Directives occurred with: Not Discussed Care Teams Hosted Services Analyst Relationship Specialty Start Date End Date Susie White MD 200 [place] [place] [address] PCP - General Internal Medicine 03/02/12 documented as of this encounter
--- OUTSIDE RECORDS SUMMARY | 2024-02-18 11:34 | External Medical Summary | Summary of Care ---
Author Name Unknown Organization [facility] Address [address] [place] [address] Phone [phone] Care Team Providers Care Supervisor Computer Operations Name Role Phone Susie White MD Primary Care Provider [phone] Reason for Visit * Reason Onset Date Comments Precert Future 11/15/2023 Encounter Details Date Type Department Care Team (Late st Contact Info) Description 11/15/2023 Telephone Hematology/Oncology Treatment, [place] [address] [place] [address] Clarence Patel MD [address] [place], [place] [phone] Precert Future Allergies No known active allergiesdocumented as of this encounter (statuses as of 12/02/2023) Medications Medication Sig Dispensed Refills Start Date [...] as of this encounter (statuses as of 12/02/2023) Active Problems Problem Noted Date Diagnosed Date [...] as of this encounter (statuses as of 12/02/2023) Resolved Problems Problem Noted Date Diagnosed Date [...] Name: Molly Chowdhury CRC Contact PI or BOWLING ALLEY MECHANIC regarding any serious medical event, if new [...] Name: Molly Chowdhury CRC Contact PI or BOWLING ALLEY MECHANIC regarding any serious medical event, if new Rx given, ER visit, hospitalization, or billing question Diagnosis changed due to Research Module. Go to Snapshot for study details. documented as of this encounter (statuses as of 12/02/2023) Immunizations Name Administration Dates Next Due COVID-19 [...] patient for applying for free medication through geographic information system surveyor, will follow up. * Telephone Encounter - [...] Description 12/06/2023 8:15 AM EDT Imaging Radiology [address], [address] [place] [address] 12/07/2023 1:45 PM EDT Pharmacy Pharmacy Hematology Oncology [facility] [address] [place] [address] [facility] [place], [facility] Hem/Onc [address] [place] [address] 12/15/2023 2:45 PM EDT Office Visit Hematology/Oncology [facility] [address] [place] [address] Cory Infante MD 200 [facility] [place] [address] 12/20/2023 10:15 AM EDT Immunization/Inject ion Hematology/Oncology Treatment, [place] [address] [facility] [phone] Nurse, Med [address] [address] 01/17/2024 10:15 AM EDT Immunization/Inject ion Hematology/Oncology Treatment, [address] [phone] Nurse, Med [address] [address] 05/25/2024 10:40 AM EDT Office Visit General Internal Medicine [place] [address] [place] [address] Susie White MD [address] [place] [address] 07/24/2024 11:00 AM EST Office Visit [facility] [address] [facility], [place] [address] Donita Cornejo, [place]UMN [address] [place] [address] [place] [address] Scheduled Procedures Name Priority Associated Diagnoses Date/Ti [...] 024, 10/28/2022, 10/12/2021 CKD HGB USE SMARTSET 77439 11/20/202411/20, 11/21/2023, 07/18/2023, Additional history exists CKD PHOS USE SMARTSET 16142 11/20/202411/06, 12/01/2022, 10/12/2021, Additional history exists Pneumococcal [...] this encounter Medical Devices Implanted Type Area Paraprofessional Education Assistant Device Identifier Shelf Expiration Date Model / Serial / Lot Implant Hi Prof Gel 750cc - [id number] [place]planted:Qty: 1 [place] 07/02/[address] [facility] [place] MENTOR DARVIN 11/30/2013 350-7504BC / [id number] / [id number] Implant Hi Prof Gel 750cc - [id number] Implanted:Qty: 1 on 07/02/2013 at [facility] Left: Breast MENTOR DARVIN 04/01/2014 350-7504BC / [id number] / [id number] documented as of this encounter Results * HEMOGLOBIN A1C (11/21/2023 7:36 AM EDT) [facility] Hemoglobin A1C 5.1 4.0 - 5.6 % 11/21/2023 7:[address] [facility] [place] Comment:The use of HbA1c to monitor glycemic status is based on normal hemoglobin and HbA composition. This test should not be used in patients with abnormal hemoglobin that affects the half life of the red blood cell or the in vivo glycation rates. Estimated Average Glucose 100 <126 mg/dL 11/21/2023 7:[address] [facility] [place] Blood Venous blood specimen / Unknown Venipuncture / Unknown 11/21/2023 7:36 AM EDT 11/21/2023 7:37 AM EDT Clarence Patel MD LAB BLOOD ORDERA BLES [facility] [place] [address] [place] [address] * (ABNORMAL) COMPREHENSIVE METABOLIC PANEL (11/21/2023 7:36 [...] LAB BLOOD ORDERA BLES Performing Organization Address City/[facility]/ZIP Co de Phone Number [facility] [address] [place] [address] * HEPATITIS B CORE ANTIBODIES IGG AND IGM (11/21/2023 7:36 AM EDT) Hepatitis B Core Antibodies IgG and IgM Negative Negative 11/21/2023 8:09 PM EDT [facility] Blood Venous blood specimen / Unknown Venipuncture / Unknown 11/21/2023 7:36 AM EDT 11/21/2023 7:37 AM EDT Clarence Patel MD LAB BLOOD ORDERA BLES Performing Organization Address [facility]/ZIP Co de Phone Number [facility] [address] [place] [address] * HEPATITIS B SURFACE ANTIGEN (11/21/2023 7:36 AM EDT) Hepatitis B Surface Antigen Negative Negative 11/21/2023 8:09 PM EDT LABORATORY C Blood Venous blood specimen / Unknown Venipuncture / Unknown 11/21/2023 7:36 AM EDT 11/21/2023 7:37 AM EDT Clarence Patel MD LAB BLOOD ORDERA BLES Performing Organization Address City/[facility]/ZIP Co de Phone Number [facility] [address] [place] [address] * HEPATITIS B SURFACE ANTIBODY (11/21/2023 7:36 AM EDT) Hepatitis B Surface Antibody, Quantitative <3.5 mIU/mL 11/21/2023 8:[address] [facility] [place] Hepatitis B Surface Antibody, Qualitative Negative 11/21/2023 8:[address] [facility] [place] Hepatitis B Surface Antibody, Interpretation NOT immune to Hepatitis B Virus 11/21/2023 8:[address] [facility] Comment: POSITIVE: >=11.5 mIU/mL INDETERMINATE: 8.5-<11.5 mIU/mL NEGATIVE: <8.5 mIU/mL Blood Venous blood specimen / Unknown Venipuncture / Unknown 11/21/2023 7:36 AM EDT 11/21/2023 7:37 AM EDT Clarence Patel MD LAB BLOOD ORDERA BLES [facility] [address] [place] [address] documented in this encounter Visit Diagnoses Diagnosis [...] Directives occurred with: Not Discussed Care Teams Supervisor Computer Operations Relationship Specialty Start Date End Date Susie White MD 200 [facility] [place] [address] PCP - General Internal Medicine 03/02/12 documented as of this encounter
--- OUTSIDE RECORDS SUMMARY | 2024-02-18 11:34 | External Medical Summary | Summary of Care ---
Author Name Unknown Organization [facility] Address [address] [place] [address] Phone [phone] Care Team Providers Care Counter Supervisor Name Role Phone Susie White MD Primary Care Provider [phone] Reason for Visit * Reason Comments Medication Management Encounter Details Date Type Department Care Team (Late st Contact Info) Description 11/29/2023 1:30 PM EDT Pharmacy Pharmacy Hematology Oncology [facility] [address] [place] [address] [facility] [place], [facility] Hem/Onc [address] [place] [address] Malignant neoplasm of overlapping sites of both breasts in female, estrogen receptor positive (HCC)* Allergies No known active allergiesdocumented as of this encounter (statuses as of 11/29/2023) Medications Medication Sig Dispensed Refills Start Date End Date Status Calcium 600 MG Oral TabletIndications:Josie min D deficiency Take by mouth. 100 Tab [...] Active traZODone HCl 50 MG Oral Tablet (Desyrel)Indications:O ther insomnia TAKE 1 TABLET AT BEDTIME 90 Tablet 3 11/16/2023 Active busPIRone HCl 5 MG Oral Tablet (Buspar)Indications:Ad justment disorder with anxious mood Take 1 Tablet by mouth every evening. 90 Tablet 2 11/17/2023 Active documented as of this encounter (statuses as of 11/29/2023) Active Problems Problem Noted Date Diagnosed Date [...] as of this encounter (statuses as of 11/29/2023) Resolved Problems Problem Noted Date Diagnosed Date [...] Name: Molly Chowdhury CRC Contact PI or ORGAN GRINDER regarding any serious medical event, if new [...] PI CRC Name: Molly Chowdhury [facility] Contact PI or ORGAN GRINDER regarding any serious medical event, if new Rx given, ER visit, hospitalization, or billing question Diagnosis changed due to Research Module. Go to Snapshot for study details. documented as of this encounter (statuses as of 11/29/2023) Immunizations Name Administration Dates Next Due COVID-19 [...] as of this encounter Progress Notes * Vicky Bazzi, transmission superintendent - 11/29/2023 2:47 PM EDT MEDICATION THERAPY MANAGEMENT Capivasertib (Truqap) TREATMENT STATUS NOTE Shante Cordoba [id number] Patient Phone Numbers [facility] [phone] Communication: Chart review Treatment: Medication: Capivasertib (Truqap) Indication/Staging/Diagnosis Code: Metastatic Breast Cancer, ER+, VA+, HER2-, PIK3CA mutation C50.811, C50.812, Z17.0 Dose: 400 mg twice daily (~12 hours apart) for 4 consecutive days, followed by 3 days off (administer capivasertib on days 1 to 4 of each week) Administration: +/- food Start Date: TBD Primary Consumer Education Specialist/Oncologist: Dr. Patel [id number] Study Additional Therapy: Fulvestrant Supportive Care Meds: Cetirizine Ondansetron Loperamide Urea Cream Cycle Dates C1 TBD C2 TBD Assessment and plan: Yes/no Date Action Taken [place] plan entered? Yes Consent completed? Yes Intro/med rec completed? Precert completed? Yes 11/29/23 Denied - letter for appeal has been faxed Test claim completed? Financial assistance needed? Physician signature? Yes Rx released? Education completed? Will follow up in 3 days to check on precert status appeal status [facility] will contact patient once med shipped/received to complete medication education Please refer to initial intake note for detailed review of regimen and patient- specific education points YE [place] Yarding Engineer Hematology Oncology Oral Chemotherapy Clinic Medication Therapy Disease Management [facility] 11/29/23,2:56 PM Time Spent on Encounter: 6 - 10 minutes documented in this encounter Plan of Treatment Upcoming Encounters Date Type Department Care Team (Late st Contact Info) Description 12/02/2023 1:30 PM EDT Pharmacy Pharmacy Hematology Oncology [facility] [place] [address] [place] [address] [facility] Hem/Onc [address] [place] [address] 12/06/2023 8:15 AM EDT Imaging Radiology [address] [place] [id number] 12/15/2023 2:45 PM EDT Office Visit Hematology/Oncology [facility] 200 [facility], [place] [phone] Cory Infante MD [address] [facility] [place] [address] 12/20/2023 10:15 AM EDT Immunization/Inject ion Hematology/Oncology Treatment, [address] [place] [address] Nurse, Med 4 [address] [facility] [place] [address] 01/17/2024 10:15 AM EDT Immunization/Inject ion Hematology/Oncology Treatment, [place] 200 [facility], [place] [phone] Nurse, Med 4 [address] [facility] [place] [address] 05/25/2024 10:40 AM EDT Office Visit General Internal Medicine [facility] [address] [facility] [address] [place], [place] [address] Susie White MD [address] [facility] [address] [place], [place] [address] 07/24/2024 11:00 AM EST Office Visit [address] [phone] Donita Cornejo PA-C [address] [place] [address] [place] [address] Scheduled Procedures Name Priority Associated Diagnoses Date/Ti me COLONOSCOPY FLEXIBLE PROXIMA L DIAGNOSTIC Recall History of colonic polyps Health Maintenance Due Date Last Done Comments Hepatitis B (1 of 3 - 19+ 3-dose series) 1989 GFR 05/22/2024 11/21/2023, 07/08, 04/27/2023, Additional history exists Depression Screening 11/16/2024 11/17/2023 Albumin/Creatinine Ratio 11/20/[address]242 024, 10/28/2022, 10/12/2021 CKD HGB USE SMARTSET 32096 11/20/202411/20, 11/21/2023, 07/18/2023, Additional history exists CKD PHOS USE SMARTSET 87413 11/20/2024 04/12/2023, 12/01/2022, 10/12/2021, Additional history exists Pneumococcal Vaccine: Pediatrics (0 to 5 Years) and At-Risk Patients (6 to 64 Years) (3 of 3 - PPSV23 or PCV20) 10/01/2026 10/01/2021, 05/26/2020 Diabetes Screening 11/20/2026 11/21/2023, 0 11/21/2023, 11/21/2023, Additional history exists COLONOSCOPY-EVERY 5 YRS AGES 18-100 05/09/2028 05/09/2023, 05/09/2023 Lipid Panel 11/20/2028 11/21/2023, 11/07, 10/12/2021, Additional history exists DTaP,Tdap,and Td Vaccines (3 - Td or Tdap) 11/16/2033 11/17/2023, 11/02/2013 Zoster Vaccines Completed 01/06/2023, 10/28/2022 Colonoscopy Discontinued [...] this encounter Medical Devices Implanted Type Area Flatwork Ironer Device Identifier Shelf Expiration Date Model / Serial / Lot Implant Hi Prof Gel 750cc - [id number] Implanted:Qty: 1 on 07/02/[address] [facility] [place] Right: Breast MENTOR DARVIN 11/30/2013 350-7504BC / [id number] / [id number] Implant Hi Prof Gel 750cc - [id number] Implanted:Qty: 1 on 07/02/[address] [facility] [place] Left: Breast MENTOR DARVIN 04/01/2014 350-3884B / [id number] / [id number] documented as of this encounter Visit Diagnoses [...] Directives occurred with: Not Discussed Care Teams Counter Supervisor Relationship Specialty Start Date End Date Susie White MD 200 [place] [address] PCP - General Internal Medicine 03/02/12 documented as of this encounter
--- OUTSIDE RECORDS SUMMARY | 2024-02-18 11:34 | External Medical Summary | Summary of Care ---
Author Name Unknown Organization [facility] Address [address] [place] [address] Phone [phone] Care Team Providers Care Launch Commander [employer] Name Role Phone Susie White MD Primary Care Provider [phone] Reason for Visit * Reason Comments Medication Management Encounter Details Date Type Department Care Team (Late st Contact Info) Description 12/02/2023 1:30 PM EDT Pharmacy Pharmacy Hematology Oncology [facility] [address] [place] [address] [facility] [place] [facility] Hem[facility]Onc [address] [place], [place] [id number] Malignant neoplasm of overlapping sites of both [...] 16 mg/day. 60 Tablet 3 12/02/2023 Active Urea 20 % External CreamIndications:Mal ignant neoplasm of overlapping sites of both breasts in female, estrogen receptor positive (HCC) Apply topically to affected area 2 times a day. Apply topically to affected area 2 times daily. Apply topically to hands and feet twice daily. 228 g 3 12/02/2023 Active Ondansetron HCl 8 MG Oral TabletIndications:Ma lignant neoplasm of overlapping sites of both breasts in female, estrogen receptor positive (HCC) Take 1 Tablet by mouth every 8 hours as needed for Nausea or Vomiting. 30 Tablet 3 12/02/2023 Active Capivasertib 200 MG Oral TabletIndications:Ma lignant neoplasm of overlapping sites of both breasts in female, estrogen receptor positive (HCC) Take 400 mg by mouth in the morning and 400 mg before bedtime. Take on days 1-4, 8-11, 15-18, and 22-25 of each cycle. Administer with or without food.. 64 Tablet 5 12/02/2023 Active documented as of this encounter (statuses [...] CRC Name: Molly LIND Contact PI or BISTRO SERVER regarding any serious medical event, if new [...] Name: Molly Chowdhury CRC Contact PI or BISTRO SERVER regarding any serious medical event, if new [...] this encounter Progress Notes * Radha Toscano, [facility] - 12/02/2023 1:38 PM EDT MEDICATION THERAPY MANAGEMENT CAPIVASERTIB TREATMENT STATUS NOTE Shante Cordoba [phone] Patient Phone Numbers Communication: Chart review Treatment: Medication: Capivasertib (Truqap) Indication/Staging/Diagnosis Code: Metastatic Breast Cancer, ER+, FL+, HER2-, PIK3CA mutation C50.811, C50.812, Z17.0 Dose: 400 mg twice daily (~12 hours apart) for 4 consecutive days, followed by 3 days off (administer capivasertib on days 1 to 4 of each week) Administration: +/- food Start Date: TBD Primary Administrative Services Director/Oncologist: Dr. Yeimy Infante [id number] Study Additional Therapy: Fulvestrant Supportive Care Meds: Cetirizine Ondansetron Loperamide Urea Cream Cycle Dates C1 TBD C2 TBD Assessment and plan: Yes/no Date Action Taken [place] plan entered? Yes 11/17/23 Consent completed? Yes 11/25/23 Intro/med rec completed? N/A Pt established with [facility] Precert completed? Yes 12/01/23 Test claim completed? yes 12/01/23 Copay $100 Financial assistance needed? yes Foundations are closed and pt over income for pharmacy [place]. Will try free drug program through analytical manager Physician signature? Yes 11/25/23 Rx released? yes 12/02/23 Education completed? Capivasertib and urea cream RX sent to [facility] Cetirizine, loperamide, and ondansetron RX sent to [facility] in [place] Will follow up in 3 days to check on financial assistance status [facility] will contact patient once med shipped/received to complete medication education Please refer to initial intake note for detailed review of regimen and patient- specific education points Time Spent on Encounter: 6 - 10 minutes Encounter Group: Oncology Encounter Interventions Item Category: Oral Chemotherapy Other: Capivasertib Problem/Rationale: [place] Plan Review: Clinical Review Pharmacist Intervention(s): Medication prescribed Magnitude of Intervention: Modification of medication for asymtomatic patients (Level 2) documented in this encounter Plan of Treatment Upcoming Encounters Date Type Department Care Team (Late st Contact Info) Description 12/06/2023 8:15 AM EDT Imaging Radiology [address] [address] 12/07/2023 1:45 PM EDT Pharmacy Pharmacy Hematology Oncology [place] [address] [place] [address] [facility] [place] [facility] Hem[facility]c [address] [place] [address] 12/15/2023 2:45 PM EDT Office Visit Hematology/Oncology [facility] [address] [place] [phone] Cory Infante MD 200 [facility] [place] [address] 12/20/2023 10:15 AM EDT Immunization/Inject ion Hematology/Oncology Treatment, [place] [facility] [phone] Nurse, Med 4 200 [facility] [place] [address] 01/17/2024 10:15 AM EDT Immunization/Inject ion Hematology/Oncology Treatment, [place] [facility] [phone] Nurse, Med 4 200 [facility] [place] [address] 05/25/2024 10:40 AM EDT Office Visit General Internal Medicine [facility] 200 [facility] [place] [address] Susie White MD 200 [facility] [place] [address] 07/24/2024 11:00 AM EST Office Visit [address] [address] Donita Cornejo PA-C [address] [place] [address] [place] [address] Scheduled Procedures Name Priority Associated Diagnoses Date/Ti me COLONOSCOPY FLEXIBLE PROXIMA L DIAGNOSTIC Recall History of colonic polyps Health Maintenance Due Date Last Done Comments Hepatitis B (1 of 3 - 19+ 3-dose series) 1991 GFR 05/22/2024 11/21/2023, 07/08, 04/27/2023, Additional history exists Depression Screening 11/16/2024 11/17/2023 Albumin/Creatinine Ratio 11/20/202411/20/2 024, 10/28/2022, 10/12/2021 CKD HGB USE SMARTSET 45776 11/20/202411/20, 11/21/2023, 07/18/2023, Additional history exists CKD PHOS USE SMARTSET 40557 11/20/202411/06, 12/01/2022, 10/12/2021, Additional history exists Pneumococcal [...] this encounter Medical Devices Implanted Type Area Claim Rep Device Identifier Shelf Expiration Date Model / Serial / Lot Implant Hi Prof Gel 750cc - [id number] Implanted:Qty: 1 on 07/02/2013 at OR [facility] Right: Breast MENTOR DARVIN 11/30/2013 350-7504BC / [id number] / [id number] Implant Hi Prof Gel 750cc - [id number] Implanted:Qty: 1 on 07/02/2013 at OR [facility] Left: Breast MENTOR DARVIN 04/01/2014 350-7504BC / [id number] / [id number] documented as of this encounter Visit Diagnoses [...] Directives occurred with: Not Discussed Care Teams Launch Commander [employer] Relationship Specialty Start Date End Date Susie White MD [address] [place] [address] PCP - General Internal Medicine 03/02/12 documented as of this encounter
--- OUTSIDE RECORDS SUMMARY | 2024-02-18 11:34 | External Medical Summary | Summary of Care ---
Author Name Unknown Organization [facility] Address [address] [place] [address] Phone [phone] Care Team Providers Care Director Life Insurance Name Role Phone Susie White MD Primary Care Provider [phone] Reason for Visit * Reason Onset Date Comments Precert Future 11/15/2023 Encounter Details Date Type Department Care Team (Late st Contact Info) Description 11/15/2023 Telephone Hematology/Oncology Treatment, [place] [address] [place] [address] Clarence Patel MD [address] [place], [place] [phone] Precert Future Allergies No known active allergiesdocumented [...] Name: Molly Chowdhury CRC Contact PI or DISTRICT ATTORNEY regarding any serious medical event, if new [...] Name: Molly Chowdhury CRC Contact PI or DISTRICT ATTORNEY regarding any serious medical event, if new [...] Description 12/06/2023 8:15 AM EDT Imaging Radiology [facility] [facility], [place] [address] [place] [address] 12/15/2023 2:45 PM EDT Office Visit Hematology/Oncology [facility] 200 [facility] [place] [phone] Cory Infante MD 200 [facility] [place] [address] 12/20/2023 10:15 AM EDT Immunization/Injec tion Hematology/Oncology Treatment, [place] [facility] [phone] Nurse, Med 4 200 [facility] [place] [address] 01/17/2024 10:15 AM EDT Immunization/Injec tion Hematology/Oncology Treatment, [place] 200 [facility] [place] [phone] Nurse, Med 4 200 [facility] [place] [address] 05/25/2024 10:40 AM EDT Office Visit General Internal Medicine [facility] 200 [facility] [place] [address] Susie White MD 200 [facility] [place] [address] 07/24/2024 11:00 AM EST Office [address] [address] Donita Cornejo PAAlly [address] [place] [address] [place] [address] Scheduled Procedures Name Priority Associated Diagnoses Date/Ti me COLONOSCOPY FLEXIBLE PROXIMA L DIAGNOSTIC Recall History of colonic polyps Health Maintenance Due Date Last Done Comments Hepatitis B (1 of 3 - 19+ 3-dose series) 1991 GFR 05/22/2024 11/21/2023, 07/08, 04/27/2023, Additional history exists Depression Screening 11/16/2024 11/17/2023 Albumin/Creatinine Ratio 11/20/2024 024, 10/28/2022, 10/12/2021 CKD HGB USE SMARTSET 68672 11/20/202411/20, 11/21/2023, 07/18/2023, Additional history exists CKD PHOS USE SMARTSET 42289 11/20/202411/06, 12/01/2022, 10/12/2021, Additional history exists Pneumococcal [...] this encounter Medical Devices Implanted Type Area Photography Professor Device Identifier Shelf Expiration Date Model / Serial / Lot Implant Hi Prof Gel 750cc - [id number] Implanted:Qty: 1 on 07/02/2013 at [place] [facility] Right: Breast MENTOR DARVIN 11/30/2013 350-7504BC / [id number] / [id number] Implant Hi Prof Gel 750cc - [id number] Implanted:Qty: 1 on 07/02/2013 at OR [facility] Left: Breast MENTOR DARVIN 04/01/2014 350-7504BC / [id number] / [id number] documented as of this encounter Results * HEMOGLOBIN A1C (11/21/2023 7:36 AM EDT) Pathologist [facility] Hemoglobin A1C 5.1 4.0 - 5.6 % 11/21/2023 7:12 PM EDT LABORATORY [facility] Comment:The use of HbA1c to monitor glycemic status is based on normal hemoglobin and HbA composition. This test should not be used in patients with abnormal hemoglobin that affects the half life of the red blood cell or the in vivo glycation rates. Estimated Average Glucose 100 <126 mg/dL 11/21/2023 7:12 PM EDT LABORATORY [facility] Blood Venous blood specimen / Unknown Venipuncture / Unknown 11/21/2023 7:36 AM EDT 11/21/2023 7:37 AM EDT Clarence Patel MD LAB BLOOD ORDERA BLES LABORATORY [facility] [address] [place] [address] * (ABNORMAL) COMPREHENSIVE METABOLIC PANEL (11/21/2023 7:36 AM EDT) BUN 13 6 - 20 mg/dL 11/21/2023 7:43 PM EDT LABORATORY [facility] Creatinine 1.1(H) 0.5 - 1.0 mg/dL 11/21/2023 7:43 PM EDT LABORATORY [facility] Estimated Glomerular Filtration Rate 60 >=60 mL/min 11/21/2023 7:43 PM EDT LABORATORY [facility] Comment:eGFR is calculated b ased on the [...] 130 U/L 11/21/2023 7:43 PM EDT LABORATORY C Bilirubin, Total 0.3 <=1.2 mg/dL 11/21/2023 7:43 PM EDT LABORATORY [facility] Calcium 9.9 8.4 - 10.2 mg/dL 11/21/2023 7:43 PM EDT LAB[facility]ORY [facility] Protein 6.4 6.0 - 8.3 g/dL 11/21/2023 7:43 PM EDT LABORATORY C ALT 28 10 - 35 U/L 11/21/2023 7:43 PM EDT LABORATORY C Blood Venous blood specimen / Unknown Venipuncture / Unknown 11/21/2023 7:36 AM EDT 11/21/2023 7:37 AM EDT Clarence Patel MD LAB BLOOD ORDERA BLES LABORATORY [facility] [address] [place] [address] * HEPATITIS B CORE ANTIBODIES IGG AND IGM (11/21/2023 7:36 AM EDT) Pathologist [facility] Hepatitis B Core Antibodies IgG and IgM Negative Negative 11/21/2023 8:09 PM EDT LABORATORY [facility] Blood Venous blood specimen / Unknown Venipuncture / Unknown 11/21/2023 7:36 AM EDT 11/21/2023 7:37 AM EDT Clarence Patel MD LAB BLOOD ORDERA BLES Performing Organization Address City/[facility] [address]/ZIP Co de Phone Number LABORATORY [facility] [address] [place] [address] * HEPATITIS B SURFACE ANTIGEN (11/21/2023 7:36 AM EDT) Hepatitis B Surface Antigen Negative Negative 11/21/2023 8:09 PM EDT LABORATORY [facility] Blood Venous blood specimen / Unknown Venipuncture / Unknown 11/21/2023 7:36 AM EDT 11/21/2023 7:37 AM EDT Clarence Patel MD LAB BLOOD ORDERA BLES Performing Organization Address [facility] [address]/[facility] Co de Phone Number LABORATORY [facility] [address] [place] [address] * HEPATITIS B SURFACE ANTIBODY (11/21/2023 7:36 AM EDT) Hepatitis B Surface Antibody, Quantitative <3.5 mIU/mL 11/21/2023 8:09 PM EDT LABORATORY [facility] Hepatitis B Surface Antibody, Qualitative Negative 11/21/2023 8:09 PM EDT LABORATORY [facility] Hepatitis B Surface Antibody, Interpretation NOT immune to Hepatitis B Virus 11/21/2023 8:09 PM EDT LABORATORY [facility] Comment: POSITIVE: >=11.5 mIU/mL INDETERMINATE: 8.5-<11.5 mIU/mL NEGATIVE: <8.5 mIU/mL Blood Venous blood specimen / Unknown Venipuncture / Unknown 11/21/2023 7:36 AM EDT 11/21/2023 7:37 AM EDT Clarence Patel MD LAB BLOOD ORDERA BLES Performing Organization Address City/[facility] [address]/ZIP Co de Phone Number LABORATORY [facility] [address] [place] [address] documented in this encounter Visit Diagnoses Diagnosis [...] Directives occurred with: Not Discussed Care Teams Director Life Insurance Relationship Specialty Start Date End Date Susie White MD [address] [place] [address] PCP - General Internal Medicine 03/02/12 documented as of this encounter
--- OUTSIDE RECORDS SUMMARY | 2024-02-18 11:34 | External Medical Summary | Summary of Care ---
Author Name Unknown Organization [facility] Address [address] [place] [address] Phone [phone] Care Team Providers Care Surgical Scrub Technologist Name Role Phone Susie White MD Primary Care Provider [phone] Reason for Visit * Reason Onset Date Comments Precert Future 11/15/2023 Encounter Details Date Type Department Care Team (Late st Contact Info) Description 11/15/2023 Telephone Hematology/Oncology Treatment, [place] [address] [place] [address] Clarence Patel MD [address] [place], [place] [phone] Precert Future Allergies No known active allergiesdocumented as of this encounter (statuses as of 12/01/2023) Medications Medication Sig Dispensed Refills Start Date [...] as of this encounter (statuses as of 12/01/2023) Active Problems Problem Noted Date Diagnosed Date [...] as of this encounter (statuses as of 12/01/2023) Resolved Problems Problem Noted Date Diagnosed Date [...] Name: Molly Chowdhury CRC Contact PI or LAUNDRY TECHNICIAN regarding any serious medical event, if [...] Name: Molly Chowdhury CRC Contact PI or LAUNDRY TECHNICIAN regarding any serious medical event, if new Rx given, ER visit, hospitalization, or billing question Diagnosis changed due to Research Module. Go to Snapshot for study details. documented as of this encounter (statuses as of 12/01/2023) Immunizations Name Administration Dates Next Due COVID-19 [...] 1:30 PM EDT Pharmacy Pharmacy Hematology Oncology [facility] [address] [place] [address] [facility] [place] [facility] Hem[facility]Onc [address] [place] [address] 12/06/2023 8:15 AM EDT Imaging Radiology [address], [place] [address] [facility] [place] [address] 12/15/2023 2:45 PM EDT Office Visit Hematology/Oncology [facility] [address] [phone] Cory Infante MD [address] [place] [address] 12/20/2023 10:15 AM EDT Immunization/Inject ion Hematology/Oncology [address], [address] [phone] Nurse, Med 4 [address] [place] [address] 01/17/2024 10:15 AM EDT Immunization/Inject ion Hematology/Oncology Treatment, [place] [facility] [phone] Nurse, Med [address] [address] 05/25/2024 10:40 AM EDT Office Visit General Internal Medicine [facility] [address] [address] Susie White MD [address] [address] 07/24/2024 11:00 AM EST Office Visit [facility] [address] [facility] [address] Donita Cornejo PA-C [address] [place] [address] [place] [address] Scheduled Procedures Name Priority Associated Diagnoses Date/Ti me COLONOSCOPY FLEXIBLE PROXIMA L DIAGNOSTIC Recall History of colonic polyps Health Maintenance Due Date Last Done Comments Hepatitis B (1 of 3 - 19+ 3-dose series) 1991 GFR 05/22/2024 11/21/2023, 07/08, 04/27/2023, Additional history exists Depression Screening 11/16/2024 11/17/2023 Albumin/Creatinine Ratio 11/20/2024 024, 10/28/2022, 10/12/2021 CKD HGB USE SMARTSET 38313 11/20/202411/20, 11/21/2023, 07/18/2023, Additional history exists CKD PHOS USE SMARTSET 13196 11/20/202411/06, 12/01/2022, 10/12/2021, Additional history exists Pneumococcal [...] this encounter Medical Devices Implanted Type Area Window And Siding Craftsman Device Identifier Shelf Expiration Date Model / Serial / Lot Implant Hi Prof Gel 750cc - [id number] Implanted:Qty: 1 on 07/02/2013 at [facility] Right: Breast MENTOR DARVIN 11/30/2013 350-7504BC / [id number] / [id number] Implant Hi Prof Gel 750cc - [id number] Implanted:Qty: 1 on 07/02/2013 at [facility] Left: Breast MENTOR DARVIN 04/01/2014 350-7504BC / [id number] / [id number] documented as of this encounter Results * HEMOGLOBIN A1C (11/21/2023 7:36 AM EDT) Pathologist [facility] Hemoglobin A1C 5.1 4.0 - 5.6 % 11/21/2023 7:12 PM EDT LAB[facility]ORY [facility] Comment:The use of HbA1c to monitor glycemic status is based on normal hemoglobin and HbA composition. This test should not be used in patients with abnormal hemoglobin that affects the half life of the red blood cell or the in vivo glycation rates. Estimated Average Glucose 100 <126 mg/dL 11/21/2023 7:12 PM EDT LABORATORY [facility] Blood Venous blood specimen / Unknown Venipuncture / Unknown 11/21/2023 7:36 AM EDT 11/21/2023 7:37 AM EDT Clarence Patel MD LAB BLOOD ORDERA BLES LABORATORY [facility] [address] [place] [address] * (ABNORMAL) COMPREHENSIVE METABOLIC PANEL (11/21/2023 7:36 AM EDT) [facility] BUN 13 6 - 20 mg/dL 11/21/2023 7:43 PM EDT LABORATORY [facility] Creatinine 1.1(H) 0.5 - 1.0 mg/dL 11/21/2023 7:43 PM EDT LABORATORY GM Estimated Glomerular Filtration Rate 60 >=60 mL/min [...] LAB BLOOD ORDERA BLES Performing Organization Address [facility] Co de Phone Number LABORATORY [facility] [address] [place] [address] * HEPATITIS B CORE ANTIBODIES IGG AND IGM (11/21/2023 7:36 AM EDT) Hepatitis B Core Antibodies IgG and IgM Negative Negative 11/21/2023 8:09 PM EDT LABORATORY [facility] Blood Venous blood specimen / Unknown Venipuncture / Unknown 11/21/2023 7:36 AM EDT 11/21/2023 7:37 AM EDT Clarence Patel MD LAB BLOOD ORDERA BLES Performing Organization Address [facility] Co de Phone Number LABORATORY [facility] [address] [place] [address] * HEPATITIS B SURFACE ANTIGEN (11/21/2023 7:36 AM EDT) Hepatitis B Surface Antigen Negative Negative 11/21/2023 8:09 PM EDT LABORATORY [facility] Blood Venous blood specimen / Unknown Venipuncture / Unknown 11/21/2023 7:36 AM EDT 11/21/2023 7:37 AM EDT Clarence Patel MD LAB BLOOD ORDERA BLES Performing Organization Address [facility] Co de Phone Number LABORATORY [facility] [address] [place] [address] * HEPATITIS B SURFACE ANTIBODY (11/21/2023 7:36 AM EDT) Hepatitis B Surface Antibody, Quantitative <3.5 mIU/mL 11/21/2023 8:09 PM EDT LABORATORY [facility] Hepatitis B Surface Antibody, Qualitative Negative 11/21/2023 8:09 PM EDT LABORATORY [facility] Hepatitis B Surface Antibody, Interpretation NOT immune to Hepatitis B Virus 11/21/2023 8:09 PM EDT LABORATORY GM Comment: POSITIVE: >=11.5 mIU/mL INDETERMINATE: 8.5-<11.5 mIU/mL NEGATIVE: <8.5 mIU/mL Blood Venous blood specimen / Unknown Venipuncture / Unknown 11/21/2023 7:36 AM EDT 11/21/2023 7:37 AM EDT Clarence Patel MD LAB BLOOD ORDERA BLES LABORATORY [facility] [address] [place] [address] documented in this encounter Visit Diagnoses Diagnosis [...] Directives occurred with: Not Discussed Care Teams Surgical Scrub Technologist Relationship Specialty Start Date End Date Susie White MD [address] [place] [address] [place] [address] PCP - General Internal Medicine 03/02/12 documented as of this encounter
--- OUTSIDE RECORDS SUMMARY | 2024-02-18 11:34 | External Medical Summary | Summary of Care ---
Author Name Unknown Organization [facility] Address [address] [place] [facility] [place] [address] Phone [phone] Care Team Providers Care Tool Planner Name Role Phone Susie White MD Primary Care Provider [phone] Reason for Visit * Reason Onset Date Comments Appointment 12/02/2023 Encounter Details Date Type Department Care Team (Late st Contact Info) Description 12/02/2023 Telephone Radiology [address] [facility] [place] [address] Yakelin Shaver, RT (M) Appointment Allergies No known active allergiesdocumented as [...] Name: Molly Chowdhury CRC Contact PI or SENIOR USER EXPERIENCE ARCHITECT regarding any serious medical event, if new [...] Infante MD PI CRC Name: Molly Luciana [facility] Contact PI or SENIOR USER EXPERIENCE ARCHITECT regarding any serious medical event, if new [...] encounter Miscellaneous Notes * Telephone Encounter - Yakelin Shaver RT (M) - 12/02/2023 2:34 PM EDT Name: Shante Cordoba Do you have any of the following: Pacemaker, stents, heart valves, aneurysm clips? No Have you ever worked with metal or have you ever gotten metal in your eyes? No Have you had a colonoscopy in the last 30 days? No On dialysis? No Do you have any dermals or body piercing's? No or ? No Do you wear an insulin pump or diabetic monitor? No RT Misti Randle) documented in this encounter Plan of Treatment Upcoming Encounters Date Type Department Care Team (Late st Contact Info) Description 12/06/2023 8:15 AM EDT Imaging Radiology [address] [address] 12/07/2023 1:45 PM EDT Pharmacy Pharmacy Hematology Oncology [address] [address] [facility], [facility] Hem/Onc [address] [place] [address] 12/15/2023 2:45 PM EDT Office Visit Hematology/Oncology [facility] 200 [facility] [place] [phone] Cory Infante MD 200 [facility] [place] [address] 12/20/2023 10:15 AM EDT Immunization/Inject ion Hematology/Oncology Treatment, [address] [place] [phone] Nurse, Med 4 200 [facility] [place] [address] 01/17/2024 10:15 AM EDT Immunization/Inject ion Hematology/[address] [phone] Nurse, Med 4 200 [facility] [place] [address] 05/25/2024 10:40 AM EDT Office Visit General Internal Medicine [facility] 200 [facility] [place] [address] Susie White MD 200 [facility] [place] [address] 07/24/2024 11:00 AM EST Office Visit Dermatology[address] [place] [address] Donita Cornejo PAAlly [address] [place] [address] [place] [address] Scheduled Procedures Name Priority Associated Diagnoses Date/Ti [...] 024, 10/28/2022, 10/12/2021 CKD HGB USE SMARTSET 88593 11/20/202411/20, 11/21/2023, 07/18/2023, Additional history exists CKD PHOS USE SMARTSET 61363 11/20/202411/06, 12/01/2022, 10/12/2021, Additional history exists Pneumococcal [...] this encounter Medical Devices Implanted Type Area Software Developer Manager Device Identifier Shelf Expiration Date Model / Serial / Lot Implant Hi Prof Gel 750cc - [id number] Implanted:Qty: 1 on 07/02/2013 at OR [facility] [place] Right: Breast MENTOR DARVIN 11/30/2013 350-7504BC / [id number] / [id number] Implant Hi Prof Gel 750cc - [id number] Implanted:Qty: 1 on 07/02/2013 at OR [facility] [place] Left: Breast MENTOR DARVIN 04/01/2014 350-7504BC / [id number] / [id number] documented as of this encounter Advance Directives Latest Code Status on File Code Status Date Activated Date Inactivated Comments Full Code 01/14/2014 8:52 AM 01/14/2014 4:20 PM This or daisy reflects the patients wishes and were consensually agreed upon. Code Status History Code Status Date Activated Date Inactivated Comments Full Code 01/14/2014 5:37 AM 01/14/2014 8:52 AM This or diasy reflects the patients wishes and were consensually agreed upon. Full Code 07/02/2013 2:20 PM 07/03/2013 2:05 PM Thi s order reflects the patients wishes and were consensually agreed upon. Question Answer Comments Discussion of Advance Directives occurred with: Not Discussed Care Teams Tool Planner Relationship Specialty Start Date End Date Susie White MD 200 [facility] [place] [address] PCP - General Internal Medicine 03/02/12 documented as of this encounter
--- OUTSIDE RECORDS SUMMARY | 2024-02-18 11:34 | External Medical Summary | Summary of Care ---
Author Name Unknown Organization [facility] Address [address] [place] [address] Phone [phone] Care Team Providers Care Energy Control Officer Name Role Phone Susie White MD Primary Care Provider [phone] Reason for Referral * Evaluate & Treat - Unlimited Visits (Within 10 days (routine)) - Pending Review Specialty Diagnoses / Procedures Referred By Crystal chandler Referred To Contact Pharmacist / Pharmacy Diagnoses Malignant neoplasm of overlapping sites of both breasts in female, estrogen receptor positive (HCC) Radha Toscano, [facility] [address] [place] [address] Referral ID Status Reason Start Date Expiration Date Visits Requested Visits Authorized [id number] Pending Review Specialty Services Required 12/02/2023 99 99 Question Answer Referral Priority Within 10 days (routine) Where should this appointment be scheduled? [facility] Referring Provider Role: Specialist Specialty: Heme/Onc Reason for Referral: Oral Chemo Has consent been obtained for new oral chemo agent(s)? Yes Comments ORAL CHEMOTHERAPY MTDM MONITORING REFERRAL This patient is being referred to the Oral Chemotherapy Clinic for medication co-management. The planned duration of treatment is: Until disease progression/toxicity Please start oral chemotherapy: Once therapy has arrived from specialty pharmacy Oral Chemotherapy Monitoring will continue until one of the following discharge criteria has been met. The provider will be informed if any of these occur. 1. Disease progression. 2. Patient non-compliance 3. Compliance and tolerating treatment well without major toxicities with routine provider follow up. 4. Completion of therapy. Additional Comments: By my signature, I understand that my patient will have their medication therapy managed by the [facility] Medication Therapy Disease Management Clinic ([facility]) per established policies, procedures, and protocols. I also certify that this referral may serve as an initiation of service for the management of drug therapy in the above noted patient. [facility] providers will be responsible for scheduling patient visits, obtaining appropriate laboratory studies, and adjusting medication management therapy per patient's need, in addition to those roles spelled out in the clinic policy, procedures, and drug management protocols. I understand that the service provided by the [facility] Clinic is voluntary and have informed patient that they can refuse the service at their discretion. I am aware that the [facility] Clinic will provide me with a copy of the patient encounter via my [employer]. I authorize the [facility] Clinic to carry out these activities on my behalf. I consider this program to be a necessary part of the patient's medical care. Encounter Details Date Type Department Care Team (Late st Contact Info) Description 11/25/2023 Orders Only Hematology/Oncology [facility] [place] 200 [facility] [place] [phone] Cory Infante MD 200 [facility] [place], [place] [address] Malignant neoplasm of overlapping sites of both [...] Name: Molly Chowdhury CRC Contact PI or ENTHONE SOLDER STRIPPER regarding any serious medical event, if new [...] Name: Molly Chowdhury CRC Contact PI or ENTHONE SOLDER STRIPPER regarding any serious medical event, if new [...] Description 12/06/2023 8:15 AM EDT Imaging Radiology [address] [place] [address] 12/07/2023 1:45 PM EDT Pharmacy Pharmacy Hematology Oncology [facility] [address] [place] [address] [facility] Hem/Onc [address] [place] [address] 12/15/2023 2:45 PM EDT Office Visit Hematology/Oncology Salma Jaquez [place] [address] [place] [place] [phone] Cory Infante MD [address] [place] [address] 12/20/2023 10:15 AM EDT Immunization/Inject ion Hematology/Oncology Treatment, [place] [facility] [phone] Nurse, Med 4 200 [facility] [place] [address] 01/17/2024 10:15 AM EDT Immunization/Inject ion Hematology/Oncology Treatment, [place] 200 [facility] [place] [phone] Nurse, Med 4 200 [facility] [place] [address] 05/25/2024 10:40 AM EDT Office Visit General Internal Medicine [facility] 200 [facility] [place] [address] Susie White MD 200 [facility] [place] [address] 07/24/2024 11:00 AM EST Office Visit Dermatology[address] [address] Donita Cornejo PA-C [address] [place] [address] [place] [address] Scheduled Orders Name Type Priority Associated Diagnoses Orde r Schedule HEMOGLOBIN A1C Lab Routine Malignant neoplasm of overlapping sites of both breasts in female, estrogen receptor positive (HCC) 4 Occurrences starting 12/02/2023 until 12/01/2024 GLUCOSE, FASTING PLASMA Lab Routine Malignant neoplasm of overlapping sites of both breasts in female, estrogen receptor positive (HCC) 12 Occurrences starting 12/02/2023 until 12/01/2024 COMPREHENSIVE METABOLIC PANEL Lab Routine Malignant neoplasm of overlapping sites of both breasts in female, estrogen receptor positive (HCC) 12 Occurrences starting 12/02/2023 until 12/01/2024 CBC WITH WBC DIFFERENTIAL Lab Routine Malignant neoplasm of overlapping sites of both breasts in female, estrogen receptor positive (HCC) 12 Occurrences starting 12/02/2023 until 12/01/2024 Scheduled Procedures Name Priority Associated Diagnoses Date/Ti me COLONOSCOPY FLEXIBLE PROXIMA L DIAGNOSTIC Recall History of colonic polyps Scheduled Referrals Name Type Priority Associated Diagnoses Orde r Schedule PHARMACIST MEDS THERAPY MGMT REFERRAL OP Referral Within 10 days (routine) Malignant neoplasm of overlapping sites of both breasts in female, estrogen receptor positive (HCC) Ordered: 12/02/2023 Health Maintenance Due Date Last Done Comments Hepatitis B (1 of 3 - 19+ 3-dose series) 1991 GFR 05/22/2024 11/21/2023, 07/08, 04/27/2023, Additional history exists Depression Screening 11/16/2024 11/17/2023 Albumin/Creatinine Ratio 11/20/2024 024, 10/28/2022, 10/12/2021 CKD HGB USE SMARTSET 60072 11/20/202411/20, 11/21/2023, 07/18/2023, Additional history exists CKD PHOS USE SMARTSET 98921 11/20/202411/06, 12/01/2022, 10/12/2021, Additional history exists Pneumococcal [...] this encounter Medical Devices Implanted Type Area Decal Applier Device Identifier Shelf Expiration Date Model / Serial / Lot Implant Hi Prof Gel 750cc - [id number] Implanted:Qty: 1 on 07/02/2013 at OR [facility] Right: Breast MENTOR DARVIN 11/30/2013 350-7504BC / [id number] / [id number] Implant Hi Prof Gel 750cc - [id number] Implanted:Qty: 1 on 07/02/2013 at OR [facility] Left: Breast MENTOR DARVIN 04/01/2014 350-7504BC / [id number] / [id number] documented as of this encounter Visit Diagnoses [...] Directives occurred with: Not Discussed Care Teams Energy Control Officer Relationship Specialty Start Date End Date Susie White MD 200 [facility] [place] [address] PCP - General Internal Medicine 03/02/12 documented as of this encounter
--- OUTSIDE RECORDS SUMMARY | 2024-02-18 11:34 | External Medical Summary | Summary of Care ---
Author Name Unknown Organization [facility] Address [address] [place] [address] Phone [phone] Care Team Providers Care Administration Manager Name Role Phone Susie White MD Primary Care Provider [phone] Reason for Visit * Reason Onset Date Comments Precert Future 11/15/2023 Encounter Details Date Type Department Care Team (Late st Contact Info) Description 11/15/2023 Telephone Hematology/Oncology Treatment, [place] [address] [place] [address] Clarence Patel MD [address] [place], [place] [phone] Precert Future Allergies No known active allergiesdocumented [...] Name: Molly Chowdhury CRC Contact PI or CASING IN LINE SETTER regarding any serious medical event, if new [...] Name: Molly Chowdhury CRC Contact PI or CASING IN LINE SETTER regarding any serious medical event, if new [...] Order received for capivasertib (truqap). Patient has [facility] appt today to build beacon. Waiting for [...] 1:30 PM EDT Pharmacy Pharmacy Hematology Oncology [facility] [address] [place] [address] [facility], [facility] Hem/Onc [address] [place] [address] 12/06/2023 8:15 AM EDT Imaging Radiology [facility] [address] [place] [address] 12/15/2023 2:45 PM EDT Office Visit Hematology/Oncology [facility] 200 [facility] [place] [phone] Cory Infante MD 200 [facility] [place] [address] 12/20/2023 10:15 AM EDT Immunization/Inject ion Hematology[facility]Oncology [facility], [place] [facility] [phone] Nurse, Med 4 200 [facility] [place] [address] 01/17/2024 10:15 AM EDT Immunization/Inject ion Hematology/Oncology Treatment, [place] [facility] [phone] Nurse, Med 4 200 [facility] [place] [address] 05/25/2024 10:40 AM EDT Office Visit General Internal Medicine [facility] 200 [facility] [place] [address] Susie White MD 200 [facility] [place] [address] 07/24/2024 11:00 AM EST Office Visit Dermatology[address] [address] Donita Cornejo, PAAlly [address] [place] [address] [place] [address] Scheduled Procedures Name Priority Associated Diagnoses Date/Ti me COLONOSCOPY FLEXIBLE PROXIMA L DIAGNOSTIC Recall History of colonic polyps Health Maintenance Due Date Last Done Comments Hepatitis B (1 of 3 - 19+ 3-dose series) 1991 GFR 05/22/2024 11/21/2023, 07/08, 04/27/2023, Additional history exists Depression Screening 11/16/2024 11/17/2023 Albumin/Creatinine Ratio 11/20/2024 024, 10/28/2022, 10/12/2021 CKD HGB USE SMARTSET 61723 11/20/202411/20, 11/21/2023, 07/18/2023, Additional history exists CKD PHOS USE SMARTSET 82937 11/20/202411/06, 12/01/2022, 10/12/2021, Additional history exists Pneumococcal [...] this encounter Medical Devices Implanted Type Area Cash Processor Device Identifier Shelf Expiration Date Model / Serial / Lot Implant Hi Prof Gel 750cc - [id number] Implanted:Qty: 1 on 07/02/2013 [place] [facility] [place]: Breast MENTOR DARVIN 11/30/2013 350-7504BC / [id number] / [id number] Implant Hi Prof Gel 750cc - [id number] Implanted:Qty: 1 on 07/02/2013 [place] [facility] Left: Breast MENTOR DARVIN 04/01/2014 350-7504BC / [id number] / [id number] documented as of this encounter Results * HEMOGLOBIN A1C (11/21/2023 7:36 AM EDT) Pathologist [facility] Hemoglobin A1C 5.1 4.0 - 5.6 % 11/21/2023 7:12 PM EDT LAB[facility]ORY [facility] Comment:The use of HbA1c to monitor glycemic status is based on normal hemoglobin and HbA composition. This test should not be used in patients with abnormal hemoglobin that affects the half life of the red blood cell or the in vivo glycation rates. Estimated Average Glucose 100 <126 mg/dL 11/21/2023 7:12 PM EDT [facility] Blood Venous blood specimen / Unknown Venipuncture / Unknown 11/21/2023 7:36 AM EDT 11/21/2023 7:37 AM EDT Clarence Patel MD LAB BLOOD ORDERA BLES [facility] [address] [place] [address] * (ABNORMAL) COMPREHENSIVE METABOLIC PANEL (11/21/2023 7:36 AM EDT) BUN 13 6 - 20 mg/dL 11/21/2023 7:43 PM EDT [facility] Creatinine 1.1(H) 0.5 - 1.0 mg/dL 11/21/2023 7:43 PM EDT [facility] Estimated Glomerular Filtration Rate 60 >=60 mL/min 11/21/2023 7:43 PM EDT [facility] Comment:eGFR is calculated b ased on the [...] Patel MD LAB BLOOD ORDERA BLES [facility] [address] [place] [address] * HEPATITIS B CORE ANTIBODIES IGG AND IGM (11/21/2023 7:36 AM EDT) Hepatitis B Core Antibodies IgG and IgM Negative Negative 11/21/2023 8:09 PM EDT LABORATORY [facility] Blood Venous blood specimen / Unknown Venipuncture / Unknown 11/21/2023 7:36 AM EDT 11/21/2023 7:37 AM EDT Clarence Patel MD LAB BLOOD ORDERA BLES Performing Organization Address City/[facility]/ZIP Co de Phone Number [facility]OR[facility]ORY [facility] [address] [place] [address] * HEPATITIS B SURFACE ANTIGEN (11/21/2023 7:36 AM EDT) Hepatitis B Surface Antigen Negative Negative 11/21/2023 8:09 PM EDT [facility] Blood Venous blood specimen / Unknown Venipuncture / Unknown 11/21/2023 7:36 AM EDT 11/21/2023 7:37 AM EDT Clarence Patel MD LAB BLOOD ORDERA BLES Performing Organization Address [facility] de Phone Number [facility]ORY [facility] [address] [place] [address] * HEPATITIS B SURFACE ANTIBODY (11/21/2023 7:36 AM EDT) Hepatitis B Surface Antibody, Quantitative <3.5 mIU/mL 11/21/2023 8:09 PM EDT [facility] Hepatitis B Surface Antibody, Qualitative Negative 11/21/2023 8:09 PM EDT [facility] Hepatitis B Surface Antibody, Interpretation NOT immune to Hepatitis B Virus 11/21/2023 8:09 PM EDT [facility] Comment: POSITIVE: >=11.5 mIU/mL INDETERMINATE: 8.5-<11.5 mIU/mL NEGATIVE: <8.5 mIU/mL Blood Venous blood specimen / Unknown Venipuncture / Unknown 11/21/2023 7:36 AM EDT 11/21/2023 7:37 AM EDT Clarence Patel MD LAB BLOOD ORDERA BLES Performing Organization Address [facility] Co de Phone Number LAB[facility]ORY [facility] [address] [place] [address] documented in this encounter Visit Diagnoses Diagnosis Malignant neoplasm of overlapping sites of both breasts in female, estrogen receptor positive (HCC)- Primary documented in this encounter Advance Directives Latest Code Status on File Code Status Date Activated Date Inactivated Comments Full Code 01/14/2014 8:52 AM 01/14/2014 4:20 PM This o rder reflects the patients wishes and were consensually [...] Directives occurred with: Not Discussed Care Teams Administration Manager Relationship Specialty Start Date End Date Ssuie White MD [address] [place] [address] PCP - General Internal Medicine 03/02/12 documented as of this encounter
--- OUTSIDE RECORDS SUMMARY | 2024-02-18 11:34 | External Medical Summary | Summary of Care ---
Author Name Unknown Organization [facility] Address [address] [place] [address] Phone [phone] Care Team Providers Care Screen Printing Supervisor Name Role Phone Susie White MD Primary Care Provider [phone] Reason for Visit * Reason Onset Date Comments Medication Refill 12/06/2023 Encounter Details Date Type Department Care Team (Late st Contact Info) Description 12/06/2023 Refill Hematology/Oncology Treatment, [place] [address] [place] [address] Alice Infante MD [address] [place] [address] Malignant neoplasm of overlapping sites of both breasts in female, estrogen receptor positive (HCC) Allergies No known active allergiesdocumented as of this encounter (statuses as of 12/06/2023) Medications Medication Sig Dispensed Refills Start Date End Date Status Calcium 600 MG Oral TabletIndications: Vitamin D deficiency Take by mouth. 100 Tab [...] Active traZODone HCl 50 MG Oral Tablet (Desyrel)Indicatio ns:Other insomnia TAKE 1 TABLET AT BEDTIME 90 Tablet 3 11/16/2023 Active busPIRone HCl 5 MG Oral Tablet (Buspar)Indication s:Adjustment disorder with anxious mood Take 1 Tablet by mouth every evening. 90 Tablet 2 11/17/2023 Active Cetirizine HCl 10 MG Oral Tablet (ZyrTEC)Indication s:Malignant neoplasm of overlapping sites of both breasts in female, estrogen receptor positive (HCC) Take 1 Tablet by mouth in the morning. Take 10 mg by mouth daily. 30 Tablet 1 12/02/2023 Active Loperamide HCl 2 MG Oral Tablet (Immodium (A-D))Indications: Malignant neoplasm of overlapping sites of both breasts in female, estrogen receptor positive (HCC) Take 4 mg, followed by 2 mg every 2-4 hours or after each loose stool. Maximum of 16 mg/day. 60 Tablet 3 12/02/2023 Active Udderly Smooth Extra Care 20 External CreamIndications:M alignant neoplasm of overlapping sites of both breasts in female, estrogen receptor positive (HCC) Apply topically to affected area on hands and feet twice daily. 228 g 3 12/02/2023 Active Capivasertib 200 MG Oral TabletIndications: Malignant neoplasm of overlapping sites of both breasts in female, estrogen receptor positive (HCC) Take 400 mg by mouth in the morning and 400 mg before bedtime. Take on days 1-4, 8-11, 15-18, and 22-25 of each cycle. Administer with or without food.. 64 Tablet 5 12/02/2023 Active Ondansetron HCl 8 MG Oral TabletIndications: Malignant neoplasm of overlapping sites of both breasts in female, estrogen receptor positive (HCC) Take 1 Tablet by mouth every 8 hours as needed for Nausea or Vomiting. 60 Tablet 3 12/06/2023 Active Ondansetron HCl 8 MG Oral TabletIndications: Malignant neoplasm of overlapping sites of both breasts in female, estrogen receptor positive (HCC) Take 1 Tablet by mouth every 8 hours as needed for Nausea or Vomiting. 30 Tablet 3 12/02/2023 4 Discontinue d(Refill) documented as of this encounter (statuses as of 12/06/2023) Active Problems Problem Noted Date Diagnosed Date [...] as of this encounter (statuses as of 12/06/2023) Resolved Problems Problem Noted Date Diagnosed Date [...] of: Project #: [id number] PI Name: Alice Infante MD PI CRC Name: Molly Chowdhury [facility] Contact PI or CAFE ASSOCIATE regarding any serious medical event, if [...] of: Project #: [id number] PI Name: Alice Infante MD PI CRC Name: Molly Chowdhury [facility] Contact PI or CAFE ASSOCIATE regarding any serious medical event, if new Rx given, ER visit, hospitalization, or billing question Diagnosis changed due to Research Module. Go to Snapshot for study details. documented as of this encounter (statuses as of 12/06/2023) Immunizations Name Administration Dates Next Due COVID-19 [...] Encounter - Jacqueline Velasquez RN - 12/06/2023 2:13 PM EDTSigned Prescriptions: Disp Refills Ondansetron HCl 8 MG Oral Tablet 60 Tab*3 Sig: Take 1 Tablet bymouth every 8 hours as needed for Nausea or Vomiting.Authorizing Provider: ALICE INFANTE * Telephone Encounter - Alice Infante MD - 12/06/2023 2:08 PM EDT E-prescribed Zofran. * Telephone Encounter - Jacqueline Velasquez RN - 12/06/2023 10:54 AM EDT Patient is picking up zofran at local pharmacy, but would [facility] as this is cheaper with insurance. documented in this encounter Plan of Treatment Upcoming Encounters Date Type Department Care Team (Late st Contact Info) Description 12/07/2023 1:45 PM EDT Pharmacy Pharmacy Hematology Oncology [address] [address] [facility], [facility] Hem/Onc [facility] [place] [address] 12/15/2023 2:45 PM EDT Office Visit Hematology/Oncology [address] [place] [phone] Alice Infante MD 200 [facility], [place] [address] 12/20/2023 10:15 AM EDT Immunization/Inject ion Hematology/Oncology Treatment, [address], [place] [phone] Nurse, Med 4 [address] [place], [place] [address] 01/17/2024 10:15 AM EDT Immunization/Inject ion Hematology/Oncology Treatment, [address], [place] [phone] Nurse, Med 4 [address] [place] [address] 05/25/2024 10:40 AM EDT Office Visit General Internal Medicine [employer] 200 [facility] [place], [place] [address] Susie White MD [address] [place], [place] [address] 07/24/2024 11:00 AM EST Office [facility] [address] [facility] [address] Donita Cornejo PA-C [address] [place] [address] [place] [address] Scheduled Procedures Name Priority Associated Diagnoses Date/Ti [...] 024, 10/28/2022, 10/12/2021 CKD HGB USE SMARTSET 71559 11/20/202411/20, 11/21/2023, 07/18/2023, Additional history exists CKD PHOS USE SMARTSET 95091 11/20/202411/06, 12/01/2022, 10/12/2021, Additional history exists Pneumococcal Vaccine: Pediatrics (0 to 5 Years) and At-Risk Patients (6 to 64 Years) (3 of 3 - PPSV23 or PCV20) 10/01/2026 10/01/2021, 05/26/2020 Diabetes Screening 11/20/2026 11/21/2023, 0 11/21/2023, 11/21/2023, Additional history exists Colonoscopy 05/09/2028 05/09/2023, 05/09/2023 Colorectal Cancer Screening 05/09/2028 Lipid Panel 11/20/2028 11/21/2023, 04/2 01/2023, 10/12/2021, Additional history exists DTaP,Tdap,and Td Vaccines [...] this encounter Medical Devices Implanted Type Area Second Watch Sergeant Device Identifier Shelf Expiration Date Model / Serial / Lot Implant Hi Prof Gel 750cc - [id number] [place]planted:Q[place] 1 [place] [facility] [place] Breast MENTOR DARVIN 11/30/2013 350-7504BC / [id number] / [id number] Implant Hi Prof Gel 750cc - [id number] Implanted:Qty: 1 on 07/02/2013 [place] [facility] [place]: Breast MENTOR DARVIN 04/01/2014 350-7504BC / [id number] / [id number] documented as of this encounter Visit Diagnoses Diagnosis Malignant neoplasm of overlapping sites of both breasts in female, estrogen receptor positive (HCC) documented in this encounter Advance Directives Latest [...] Directives occurred with: Not Discussed Care Teams Screen Printing Supervisor Relationship Specialty Start Date End Date Susie White MD 200 [facility] [place] [address] PCP - General Internal Medicine 03/02/12 documented as of this encounter
--- OUTSIDE RECORDS SUMMARY | 2024-02-18 11:34 | External Medical Summary | Summary of Care ---
Author Name Unknown Organization [facility] Address [address] [place] [address] Phone [phone] Care Team Providers Care Slip Operator Name Role Phone Susie White MD Primary Care Provider [phone] Reason for Visit * Reason Onset Date Comments Patient Assistance Program 12/01/2023 Encounter Details Date Type Department Care Team (Late st Contact Info) Description 12/01/2023 Telephone Hematology/Oncology, [facility] [address] [place] [address] Clarence Patel MD [address] [place] [address] Patient Assistance Program Allergies No known active allergiesdocumented as of [...] Infnate MD PI CRC Name: Molly Chowdhury CRC Contact PI or COVER MAT MACHINE OPERATOR regarding any serious medical event, if [...] Infante MD PI CRC Name: Molly Chowdhury [facility] Contact PI or COVER MAT MACHINE OPERATOR regarding any serious medical event, if [...] could try free drug program through the pipeline welder. Applications mailed: : YES, emailed application to [email or web address]. Follow up: 12/02/2023 Thank you, Ashley Munoz Medication Health Information Technician 12/01/2023, 11:11 AM * Telephone Encounter - Huma Uribe OSA - 12/01/2023 7:34 AM EDT GSP Patient Assistance Request: Medication name: TRUQAP 200 MG TABS Insurance? commercial Co-pay amount: 100.00 Action needed: new funding inquiry Target ship date (if applicable): N/A IF HEM/ONC: Confirm this encounter is routed to [facility]: Yes All other department requests should be flagged in referral. Confirm encounter department selected is for prescribing physician: Yes If URGENT: Send TEAMS message to appropriate bit and shank department supervisor (see "Patient Assistance Guide" - ROUTING POOLS:[facility] on shared drive): [] Urgent message sent to: Thank you, LEN Olson [facility] 12/01/2023,7:34 AM documented in this encounter Plan of Treatment Upcoming Encounters Date Type Department Care Team (Late st Contact Info) Description 12/02/2023 1:30 PM EDT Pharmacy Pharmacy Hematology Oncology [facility] [address] [place] [facility] [place] [address] [facility] Hem/Onc [address] [facility] [place] [address] 12/06/2023 8:15 AM EDT Imaging Radiology [facility] 1st [facility] [address] [facility] [place] [address] 12/15/2023 2:45 PM EDT Office Visit Hematology/Oncology [facility] [place] [facility] [address] Cory Infante MD 200 [facility] [place] [address] 12/20/2023 10:15 AM EDT Immunization/Inject ion Hematology/Oncology Treatment, [place] 200 [place] [phone] Nurse, Med [address] [facility] [place] [address] 01/17/2024 10:15 AM EDT Immunization/Inject ion Hematology/Oncology Treatment, [place] [address] [place] [phone] Nurse, Med [address] [facility] [place] [address] 05/25/2024 10:40 AM EDT Office Visit General Internal Medicine [facility] 200 [facility] [place] [address] Susie White MD 200 [facility], [place] [address] 07/24/2024 11:00 AM EST Office Visit [address] [phone] Donita Cornejo PA-C [address] [place] [address] [place] [address] Scheduled Procedures Name Priority Associated Diagnoses Date/Ti me COLONOSCOPY FLEXIBLE PROXIMA L DIAGNOSTIC Recall History of colonic polyps Health Maintenance Due Date Last Done Comments Hepatitis B (1 of 3 - 19+ 3-dose series) 1991 GFR 05/22/2024 11/21/2023, 07/08, 04/27/2023, Additional history exists Depression Screening 11/16/2024 11/17/2023 Albumin/Creatinine Ratio 11/20/2024 024, 10/28/2022, 10/12/2021 CKD HGB USE SMARTSET 43150 11/20/202411/20, 11/21/2023, 07/18/2023, Additional history exists CKD PHOS USE SMARTSET 90940 11/20/202411/06, 12/01/2022, 10/12/2021, Additional history exists Pneumococcal [...] this encounter Medical Devices Implanted Type Area Guardian Ad Litem Device Identifier Shelf Expiration Date Model / Serial / Lot Implant Hi Prof Gel 750cc - [id number] Implanted:Qty: 1 on 07/02/2013 at [place] [facility] [place] Right: Breast MENTOR DARVIN 11/30/2013 350-7504BC / [id number] / [id number] Implant Hi Prof Gel 750cc - [id number] Implanted:Qty: 1 on 07/02/2013 at OR [facility] [place] Left: Breast MENTOR DARVIN 04/01/2014 350-7504B / [id number] / [id number] documented as of this encounter Advance Directives [...] Directives occurred with: Not Discussed Care Teams Slip Operator Relationship Specialty Start Date End Date Susie White MD [address] [place] [address] PCP - General Internal Medicine 03/02/12 documented as of this encounter
--- OUTSIDE RECORDS SUMMARY | 2024-02-18 11:34 | External Medical Summary | Summary of Care ---
Author Name Unknown Organization [facility] Address [address] [place] [address] Phone [phone] Care Team Providers Care Ship Manager Name Role Phone Susie White MD Primary Care Provider [phone] Reason for Visit * Reason Onset Date Comments Precert Future 11/15/2023 Encounter Details Date Type Department Care Team (Late st Contact Info) Description 11/15/2023 Telephone Hematology/Oncology Treatment, [place] [address] [place] [address] Clarence Patel MD [address] [place], [place] [phone] Precert Future Allergies No known active allergiesdocumented [...] Name: Molly Chowdhury CRC Contact PI or TEST CENTER ADMINISTRATOR regarding any serious medical event, if new [...] Name: Molly Chowdhury CRC Contact PI or TEST CENTER ADMINISTRATOR regarding any serious medical event, if new [...] patient for applying for free medication through medical terminologist, will follow up. * Telephone Encounter - Renny Grgisby RN - 12/01/2023 2:09 PM EDT Auth [...] Order received for capivasertib (truqap). Patient has [place] appt today to build beacon. Waiting for [...] 1:45 PM EDT Pharmacy Pharmacy Hematology Oncology [address] [address] [facility] Hem/Onc [facility] [place] [address] 12/15/2023 2:45 PM EDT [facility] [place] 200 [facility] [place] [address] Cory Infante MD 200 [facility] [place] [address] 12/20/2023 10:15 AM EDT Immunization/Inject ion Hematology/Oncology Treatment, [place] [address] [place] [phone] Nurse, Med 4 [facility] [place] [address] 01/17/2024 10:15 AM EDT Immunization/Inject ion Hematology/Oncology Treatment, [place] [address] [place] [phone] Nurse, Med 4 [facility] [place] [address] [address] 05/25/2024 10:40 AM EDT Office Visit General Internal Medicine [facility] 200 [facility] [place] [address] Susie White MD 200 [facility] [place] [address] 07/24/2024 11:00 AM EST Office Visit [address] [address] Donita Cornejo PA-C [address] [place] [address] [place] [address] Scheduled Procedures Name Priority Associated Diagnoses Date/Ti [...] 024, 10/28/2022, 10/12/2021 CKD HGB USE SMARTSET 76268 11/20/202411/20, 11/21/2023, 07/18/2023, Additional history exists CKD PHOS USE SMARTSET 69840 11/20/202411/06, 12/01/2022, 10/12/2021, Additional history exists Pneumococcal [...] this encounter Medical Devices Implanted Type Area Rig Builder Device Identifier Shelf Expiration Date Model / Serial / Lot Implant Hi Prof Gel 750cc - [id number] [place]ed:Q[place] 1 [place]02[place] [facility] [place] Breast MENTOR DARVIN 11/30/2013 350-7504BC / [id number] / [id number] Implant Hi Prof Gel 750cc - [id number] Implanted:Qty: 1 [place] 07/02/2013 [place] [facility] [place] Breast MENTOR DARVIN 04/01/2014 350-7504BC / [id number] / [id number] documented as of this encounter Results * HEMOGLOBIN A1C (11/21/2023 7:36 AM EDT) Pathologist [facility] Hemoglobin A1C 5.1 4.0 - 5.6 % 11/21/2023 7:12 PM EDT [facility] Comment:The use of HbA1c to monitor glycemic status is based on normal hemoglobin and HbA composition. This test should not be used in patients with abnormal hemoglobin that affects the half life of the red blood cell or the in vivo glycation rates. Estimated Average Glucose 100 <126 mg/dL 11/21/2023 7:12 PM EDT [facility] Blood Venous blood specimen / Unknown Venipuncture / Unknown 11/21/2023 7:36 AM EDT 11/21/2023 7:37 AM EDT Clarence Patel MD LAB BLOOD ORDERA BLES [facility] [address] [place] [address] * (ABNORMAL) COMPREHENSIVE METABOLIC PANEL (11/21/2023 7:36 AM EDT) Pathologist [facility] BUN 13 6 - 20 mg/dL 11/21/2023 7:43 PM EDT [facility] Creatinine 1.1(H) 0.5 - 1.0 mg/dL 11/21/2023 7:43 PM EDT [facility] Estimated Glomerular Filtration Rate 60 >=60 mL/min 11/21/2023 7:43 PM EDT [facility] Comment:eGFR is calculated b ased on the CKD-EPI 2020 equation Sodium 139 135 - 146 mmol/L 11/21/2023 7:43 PM EDT LABORATORY C Potassium 4.5 3.5 - 5.1 mmol/L 11/21/2023 7:43 PM EDT LABORATORY C Chloride 104 98 - 107 mmol/L 11/21/2023 7:43 PM EDT LABORATORY C CO2 26 22 - 32 mmol/L 11/21/2023 7:43 PM EDT LABORATORY C Anion Gap 9 7 - 15 mmol/L 11/21/2023 7:43 PM EDT LABORATORY C Glucose 76 70 - 120 mg/dL 11/21/2023 7:43 PM EDT LABORATORY C Albumin 4.2 3.8 - 5.0 g/dL 11/21/2023 [...] Patel MD LAB BLOOD ORDERA BLES [facility] [address] [place] [address] * HEPATITIS B CORE ANTIBODIES IGG AND IGM (11/21/2023 7:36 AM EDT) Pathologist [facility] Hepatitis B Core Antibodies IgG and IgM Negative Negative 11/21/2023 8:09 PM EDT [facility] Blood Venous blood specimen / Unknown Venipuncture / Unknown 11/21/2023 7:36 AM EDT 11/21/2023 7:37 AM EDT Clarence Patel MD LAB BLOOD ORDERA BLES [facility] [address] [place] [address] * HEPATITIS B SURFACE ANTIGEN (11/21/2023 7:36 AM EDT) Hepatitis B Surface Antigen Negative Negative 11/21/2023 8:09 PM EDT LABORATORY C Blood Venous blood specimen / Unknown Venipuncture / Unknown 11/21/2023 7:36 AM EDT 11/21/2023 7:37 AM EDT Clarence Patel MD LAB BLOOD ORDERA BLES Performing Organization Address [facility] de Phone Number LABORATORY [place] [address] [place] [address] * HEPATITIS B SURFACE ANTIBODY (11/21/2023 7:36 AM EDT) Pathologist [facility] Hepatitis B Surface Antibody, Quantitative <3.5 mIU/mL 11/21/2023 8:09 PM EDT LAB[facility] Hepatitis B Surface Antibody, Qualitative Negative 11/21/2023 8:09 PM EDT LAB[facility] Hepatitis B Surface Antibody, Interpretation NOT immune to Hepatitis B Virus 11/21/2023 8:09 PM EDT LAB[facility] Comment: POSITIVE: >=11.5 mIU/mL INDETERMINATE: 8.5-<11.5 mIU/mL NEGATIVE: <8.5 mIU/mL Blood Venous blood specimen / Unknown Venipuncture / Unknown 11/21/2023 7:36 AM EDT 11/21/2023 7:37 AM EDT Clarence Patel MD LAB BLOOD ORDERA BLES Performing Organization Address [facility] de Phone Number LABORATORY [place] [address] [place] [address] documented in this encounter Visit Diagnoses Diagnosis [...] Directives occurred with: Not Discussed Care Teams Ship Manager Relationship Specialty Start Date End Date Susie White MD 200 [facility] [place] [address] PCP - General Internal Medicine 03/02/12 documented as of this encounter
--- OUTSIDE RECORDS SUMMARY | 2024-02-18 11:34 | External Medical Summary | Summary of Care ---
Author Name Unknown Organization [facility] Address [address] [place] [address] Phone [phone] Care Team Providers Care Cost Consultant Name Role Phone Susie White MD Primary Care Provider Reason for Visit * Reason Comments Medication Management Encounter Details Date Type Department Care Team (Late st Contact Info) Description 12/07/2023 1:45 PM EDT Pharmacy Pharmacy Hematology Oncology [facility] [address] [place] [address] [facility] Hem/Onc [address] [place] [address] Malignant neoplasm of overlapping sites of both [...] CRC Name: Molly LIND Contact PI or CROWN PRESSER regarding any serious medical event, if new [...] Name: Molly Chowdhury CRC Contact PI or CROWN PRESSER regarding any serious medical event, if new [...] as of this encounter Progress Notes * Johana Carrasquillo, Luz Elena - 12/06/2023 3:26 PM EDT MEDICATION THERAPY MANAGEMENT CAPIVASERTIB TREATMENT STATUS NOTE Shante Aparicioer [phone] Patient Phone Numbers Communication: Chart review Treatment: Medication: Capivasertib (Truqap) Indication/Staging/Diagnosis Code: Metastatic Breast Cancer, ER+, VT+, HER2-, PIK3CA mutation C50.811, C50.812, Z17.0 Dose: 400 mg twice daily (~12 hours apart) for 4 consecutive days, followed by 3 days off (administer capivasertib on days 1 to 4 of each week) Administration: +/- food Start Date: TBD Primary Truck Packer/Oncologist: Dr. Yeimy Infante [id number] Study Additional Therapy: Fulvestrant Supportive Care Meds: Cetirizine Ondansetron Loperamide Urea Cream Cycle Dates C1 TBD C2 TBD Assessment and plan: Yes/no Date Action Taken [place] plan entered? Yes 11/17/23 Consent completed? Yes 11/25/23 Intro/med rec completed? N/A Pt established with [facility] Precert completed? Yes 12/01/23 Test claim completed? yes 12/01/23 Copay $100 Financial assistance needed? yes Foundations are closed and pt over income for pharmacy [place]. Will try free drug program through technical service specialist Physician signature? Yes 11/25/23 Rx released? yes 12/02/23 Education completed? Patient will pay $100 copay - Scheduled to ship from [facility] on 12/11 MTM [facility] will contact patient once med shipped/received to complete medication education Please refer to initial intake note for detailed review of regimen and patient- specific education points Johana Carrasquillo First Helper III Hematology Oncology Oral Chemotherapy Clinic Medication Therapy Disease Management [facility] 12/06/2023 3:31 PM documented in this encounter Plan of Treatment Upcoming Encounters Date Type Department Care Team (Late st Contact Info) Description 12/12/2023 9:45 AM EDT Pharmacy Pharmacy Hematology Oncology [facility] [address] [place] [address] [facility] Hem/Onc [address] [place] [address] 12/15/2023 2:45 PM EDT Office Visit Hematology/Oncology [address] [place] [phone] Cory Infante MD [address] [place] [address] [place] [address] 12/20/2023 10:15 AM EDT Immunization/Inject ion Hematology/Oncology Treatment, [place] 200 [facility] [place] [phone] Nurse, Med [address] [place] [address] [place] [address] 01/17/2024 10:15 AM EDT Immunization/Inject ion Hematology/Oncology Treatment, [place] [address] [place], [place] [address] Nurse, Med 4 200 [facility] [place] [address] 05/25/2024 10:40 AM EDT Office Visit General Internal Medicine [facility] 200 [facility] [place] [address] Susie White MD 200 [facility] [place] [address] 07/24/2024 11:00 AM EST Office Visit [address], [place] [address] Donita Cornejo, PAAlly [address] [place] [address] [place] [address] Scheduled Procedures Name Priority Associated Diagnoses Date/Ti [...] 024, 10/28/2022, 10/12/2021 CKD HGB USE SMARTSET 78953 11/20/202411/20, 11/21/2023, 07/18/2023, Additional history exists CKD PHOS USE SMARTSET 79985 11/20/202411/06, 12/01/2022, 10/12/2021, Additional history exists Pneumococcal [...] this encounter Medical Devices Implanted Type Area Data Engineer Device Identifier Shelf Expiration Date Model / Serial / Lot Implant Hi Prof Gel 750cc - [id number] Implanted:Qty: 1 on 07/02/2013 at [place] [facility] [place] Right: Breast MENTOR DARVIN 11/30/2013 350-7504BC / [id number] / [id number] Implant Hi Prof Gel 750cc - [id number] Implanted:Qty: 1 on 07/02/2013 at [place] [facility] Left: Breast MENTOR DARVIN 04/01/2014 350-7504BC / [id number] / [id number] documented as of this encounter Visit Diagnoses [...] Directives occurred with: Not Discussed Care Teams Cost Consultant Relationship Specialty Start Date End Date Susie White MD 200 [facility] [place] [address] PCP - General Internal Medicine 03/02/12 documented as of this encounter
--- OUTSIDE RECORDS SUMMARY | 2024-02-18 11:34 | External Medical Summary | Summary of Care ---
Author Name Unknown Organization [facility] Address [address] [place] [address] Phone [phone] Care Team Providers Care Customs Brokerage Agent Name Role Phone Susie White MD Primary Care Provider [phone] Encounter Details Date Type Department Care Team (Late st Contact Info) Description 11/29/2023 Telephone Hematology/Oncology Salma Jaquez [place] 200 [facility] [place] [address] Clarence Patel MD [address] [place] [address] Allergies No known active allergiesdocumented as of this encounter (statuses as of 11/30/2023) Medications Medication Sig Dispensed Refills Start Date [...] as of this encounter (statuses as of 11/30/2023) Active Problems Problem Noted Date Diagnosed Date [...] as of this encounter (statuses as of 11/30/2023) Resolved Problems Problem Noted Date Diagnosed Date [...] Name: Molly Chowdhury CRC Contact PI or VULCANIZER RUBBER PLATE regarding any serious medical event, if new [...] PI CRC Name: Molly Chowdhury [facility] Contact PI or VULCANIZER RUBBER PLATE regarding any serious medical event, if new Rx given, ER visit, hospitalization, or billing question Diagnosis changed due to Research Module. Go to Snapshot for study details. documented as of this encounter (statuses as of 11/30/2023) Immunizations Name Administration Dates Next Due COVID-19 [...] 1:30 PM EDT Pharmacy Pharmacy Hematology Oncology [facility] [address] [place] [address] [facility] Hem/Onc [address] [place] [address] 12/06/2023 8:15 AM EDT Imaging Radiology [facility] 1st Floor, [place] [facility] [place] [address] 12/15/2023 2:45 PM EDT Office Visit Hematology/Oncology [facility] [place] 200 [facility] [place] [phone] Cory Infante MD 200 [facility] [place] [address] 12/20/2023 10:15 AM EDT Immunization/Inject ion Hematology[facility]Oncology Treatment, [place] [facility] [phone] Nurse, Med 4 200 [facility] [place] [address] 01/17/2024 10:15 AM EDT Immunization/Inject ion Hematology/Oncology Treatment, [place] 200 [facility] [place] [phone] Nurse, Med 4 200 [facility] [place] [address] 05/25/2024 10:40 AM EDT Office Visit General Internal Medicine [facility] [place] 200 [facility] [place] [address] Susie White MD 200 [facility] [place] [address] 07/24/2024 11:00 AM EST Office Visit [address] [place] [address] Donita Cornejo PA-C [address] [place] [address] [place] [address] Scheduled Procedures Name Priority Associated Diagnoses Date/Ti me COLONOSCOPY FLEXIBLE PROXIMA L DIAGNOSTIC Recall History of colonic polyps Health Maintenance Due Date Last Done Comments Hepatitis B (1 of 3 - 19+ 3-dose series) 1991 GFR 05/22/2024 11/21/2023, 07/08, 04/27/2023, Additional history exists Depression Screening 11/16/2024 11/17/2023 Albumin/Creatinine Ratio 11/20/2024 024, 10/28/2022, 10/12/2021 CKD HGB USE SMARTSET 89012 11/20/202411/20, 11/21/2023, 07/18/2023, Additional history exists CKD PHOS USE SMARTSET 42156 11/20/202411/06, 12/01/2022, 10/12/2021, Additional history exists Pneumococcal [...] this encounter Medical Devices Implanted Type Area Evp And Chief Operating Officer Device Identifier Shelf Expiration Date Model / Serial / Lot Implant Hi Prof Gel 750cc - [id number] Implanted:Qty: 1 on 07/02/2013 [place] [facility] [place] Right: Breast MENTOR DARVIN 11/30/2013 350-7504BC / [id number] / [id number] Implant Hi Prof Gel 750cc - [id number] Implanted:Qty: 1 on 07/02/2013 at [place] [facility] [place] Left: Breast MENTOR DARVIN 04/01/2014 350-7504BC / [id number] / [id number] documented as of this encounter Advance Directives [...] Directives occurred with: Not Discussed Care Teams Customs Brokerage Agent Relationship Specialty Start Date End Date Susie White MD 200 [place] [address] PCP - General Internal Medicine 03/02/12 documented as of this encounter
--- OUTSIDE RECORDS SUMMARY | 2024-02-18 11:35 | External Medical Summary | Summary of Care ---
Author Name Unknown Organization [facility] Address [address] [facility] [place] [address] Phone [phone] Care Team Providers Care Sushi Chef Name Role Phone Susie White MD Primary Care Provider [phone] Reason for Visit * Reason Onset Date Comments Advice 11/25/2023 Encounter Details Date Type Department Care Team (Late st Contact Info) Description 11/25/2023 Telephone Hematology/Oncology [facility] [place] 200 [facility] [place] [phone] Cory Infante MD 200 [facility] [address] Advice Allergies No known active allergiesdocumented as of this encounter (statuses as of 11/25/2023) Medications Medication Sig Dispensed Refills Start Date [...] as of this encounter (statuses as of 11/25/2023) Active Problems Problem Noted Date Diagnosed Date [...] as of this encounter (statuses as of 11/25/2023) Resolved Problems Problem Noted Date Diagnosed Date [...] Infante MD PI CRC Name: Molly Chowdhury [facility] Contact PI or SANE RN regarding any serious medical event, if new [...] Infante MD PI CRC Name: Molly Chowdhury [facility] Contact PI or SANE RN regarding any serious medical event, if new Rx given, ER visit, hospitalization, or billing question Diagnosis changed due to Research Module. Go to Snapshot for study details. documented as of this encounter (statuses as of 11/25/2023) Immunizations Name Administration Dates Next Due COVID-19 [...] Miscellaneous Notes * Telephone Encounter - Renny Grigsby, BEN - 11/25/2023 2:00 PM EDT Pt in clinic today for chemo ed regarding Truqap. Dr. Infante- Per Dr. Mora JAVIER with patient, he stated that he would advise tumor markers monthly when patient starts treatment, however, note below that states to return in 3-4 months with tumor markers. Do you advise doing monthly tumor markers once Truqap is started? Thanks. documented in this encounter Plan of Treatment Upcoming Encounters Date Type Department Care Team (Late st Contact Info) Description 12/06/2023 8:15 AM EDT Imaging Radiology [facility] 1st [facility], [place] 132 [facility] [place] [address] 12/15/2023 2:45 PM EDT Office Visit Hematology/Oncology [facility] [address] [place] [phone] Cory Infante MD [address] [place] [address] [address] 12/20/2023 10:15 AM EDT Immunization/Injec tion Hematology/Oncology Treatment, [address] [place] [phone] Nurse, Med 4 [address] [place] [address] 01/17/2024 10:15 AM EDT Immunization/Injec tion Hematology/Oncology Treatment, [place] 200 [facility] [place] [phone] Nurse, Med 4 [address] [place] [address] 05/25/2024 10:40 AM EDT Office Visit General Internal Medicine [facility] [place] [address] [place] [address] [address] [address] Susie White MD [address] [place] [address] [address] [address] 07/24/2024 11:00 AM EST Office Visit [address] [address] Donita Cornejo, PA-Favio [address] [place] [address] [place] [address] Scheduled Procedures Name Priority Associated Diagnoses Date/Ti me COLONOSCOPY FLEXIBLE PROXIMA L DIAGNOSTIC Recall History of colonic polyps Health Maintenance Due Date Last Done Comments Hepatitis B (1 of 3 - 19+ 3-dose series) 1991 GFR 05/22/2024 11/21/2023, 07/08, 04/27/2023, Additional history exists Depression Screening 11/16/2024 11/17/2023 Albumin/Creatinine Ratio 11/20/2024 024, 10/28/2022, 10/12/2021 CKD HGB USE SMARTSET 73484 11/20/202411/20, 11/21/2023, 07/18/2023, Additional history exists CKD PHOS USE SMARTSET 80107 11/20/202411/06, 12/01/2022, 10/12/2021, Additional history exists Pneumococcal [...] this encounter Medical Devices Implanted Type Area Child Attendant Device Identifier Shelf Expiration Date Model / Serial / Lot Implant Hi Prof Gel 750cc - [id number] Implanted:Qty: 1 on 07/02/2013 at [place] [facility] Right: Breast MENTOR DARVIN 11/30/2013 350-7504BC / [id number] / [id number] Implant Hi Prof Gel 750cc - [id number] Implanted:Qty: 1 on 07/02/2013 at [place] [facility] Left: Breast MENTOR DARVIN 04/01/2014 350-7504BC / [id number] / [id number] documented as of this encounter Advance Directives [...] Directives occurred with: Not Discussed Care Teams Sushi Chef Relationship Specialty Start Date End Date Susie White MD [address] [place] [address] PCP - General Internal Medicine 03/02/12 documented as of this encounter
--- OUTSIDE RECORDS SUMMARY | 2024-02-18 11:35 | External Medical Summary | Summary of Care ---
Author Name Unknown Organization [facility] Address [address] [place] [address] Phone [phone] Care Team Providers Care Flatwork Finisher Name Role Phone Susie White MD Primary Care Provider [phone] Reason for Visit * Reason Comments Medication Management Encounter Details Date Type Department Care Team (Late st Contact Info) Description 11/23/2023 1:30 PM EDT Pharmacy Pharmacy Hematology Oncology [facility] [address] [place] [address] [facility] [place] Clinic Hem/Onc [address] [place] [address] Malignant neoplasm of overlapping sites of both breasts in female, estrogen receptor positive (HCC)* Allergies No known active allergiesdocumented as of this encounter (statuses as of 11/23/2023) Medications Medication Sig Dispensed Refills Start Date [...] as of this encounter (statuses as of 11/23/2023) Active Problems Problem Noted Date Diagnosed Date [...] as of this encounter (statuses as of 11/23/2023) Resolved Problems Problem Noted Date Diagnosed Date [...] Molly Chowdhury CRC Contact PI or SENIOR ENTERPRISE ARCHITECT regarding any serious medical event, if [...] Chowdhury [facility] Contact PI or SENIOR ENTERPRISE ARCHITECT regarding any serious medical event, if new Rx given, ER visit, hospitalization, or billing question Diagnosis changed due to Research Module. Go to Snapshot for study details. documented as of this encounter (statuses as of 11/23/2023) Immunizations Name Administration Dates Next Due COVID-19 [...] Notes * Johana Carrasquillo, Luz Elena - 11/23/2023 1:06 PM EDT MEDICATION THERAPY MANAGEMENT CAPIVASERTIB INITIAL INTAKE NOTE Shante Cordoba [phone] Patient Phone Numbers ParkingCarma [phone] Communication: Chart review Treatment: Medication: Capivasertib (Truqap) Indication/Staging/Diagnosis Code: Metastatic Breast Cancer, ER+, [place]+, HER2-, PIK3CA mutation C50.811, C50.812, Z17.0 Dose: 400 mg twice daily (~12 hours apart) for 4 consecutive days, followed by 3 days off (administer capivasertib on days 1 to 4 of each week) Administration: +/- food Start Date: TBD Primary Cardroom Manager/Oncologist: Dr. Patel [id number]-[id number] Study Additional Therapy: Fulvestrant Supportive Care Meds: Cetirizine Ondansetron Loperamide Urea Cream Cycle Dates C1 TBD C2 TBD The Hematology/Oncology Oral Chemotherapy Clinic will assess medication compliance at each patient encounter Yes/no Date Action Taken [place]illiard plan entered? Yes 11/17/23 Consent completed? No Intro/med rec completed? Precert completed? Pending Submitted 11/16 - [facility] Additional documentation faxed 11/22 per [facility] request that member has PIK3CA or Aktl or PTEN alterations as detected by and FDA approved test Test claim completed? Financial assistance needed? Physician signature? No Rx released? Education completed? Will follow up in 2 days to check on precert status and to check on physician approval and consent status [facility] will contact patient once med shipped/received to complete medication education Please refer to initial intake note for detailed review of regimen and patient- specific education points Johana Carrasquillo E Commerce Specialist III [facility] Oral Chemotherapy Clinic 11/23/2023 1:08 PM Time Spent on Encounter: < 5 minutes documented in this encounter Plan of Treatment Upcoming Encounters Date Type Department Care Team (Late st Contact Info) Description 11/25/2023 1:30 PM EDT Nurse Only Hematology/Oncology [facility] [address] [place] [address] Gisele, Nurse Hem Onc [facility] [address] [place] [address] 11/25/2023 1:30 PM EDT Pharmacy Pharmacy Hematology Oncology [address] [address] [phone] c, [facility] Hem[facility]Onc [address] [place] [address] 12/06/2023 8:15 AM EDT Imaging Radiology [address], [place] 132 [facility] [place] [address] 12/15/2023 2:45 PM EDT Office Visit Hematology/Oncology [facility] 200 [facility] [place] [phone] Cory Infante MD 200 [facility] [place] [address] 12/20/2023 10:15 AM EDT Immunization/Inject ion Hematology/Oncology Treatment, [place] 200 [place] [phone] Nurse, Med 4 200 [facility] [place] [address] 01/17/2024 10:15 AM EDT Immunization/Inject ion Hematology/Oncology Treatment, [place] 200 [facility], [place] [phone] Nurse, Med 4 200 [facility] [place] [address] 05/25/2024 10:40 AM EDT Office Visit General Internal Medicine [facility] 200 [facility] [place] [address] Susie White MD 200 [facility] [place] [address] 07/24/2024 11:00 AM EST Office Visit Dermatology[address] [place] [address] Donita Cornejo PA-C [address] [place] [address] [place] [address] Scheduled Procedures Name Priority Associated Diagnoses Date/Ti me COLONOSCOPY FLEXIBLE PROXIMA L DIAGNOSTIC Recall History of colonic polyps Health Maintenance Due Date Last Done Comments Hepatitis B (1 of 3 - 19+ 3-dose series) 1991 GFR 05/22/2024 11/21/2023, 07/08, 04/27/2023, Additional history exists Depression Screening 11/16/2024 11/17/2023 Albumin/Creatinine Ratio 11/20/2024 024, 10/28/2022, 10/12/2021 CKD HGB USE SMARTSET 40966 11/20/202411/20, 11/21/2023, 07/18/2023, Additional history exists CKD PHOS USE SMARTSET 70237 11/20/202411/06, 12/01/2022, 10/12/2021, Additional history exists Pneumococcal [...] this encounter Medical Devices Implanted Type Area Ropewalk Rope Maker Device Identifier Shelf Expiration Date Model / Serial / Lot Implant Hi Prof Gel 750cc - [id number] Implanted:Q[place] 1 [place] [facility] [place] MENTOR DARVIN 11/30/2013 350-7504BC / [id number] / [id number] Implant Hi Prof Gel 750cc - [id number] Implanted:Qty: 1 on 07/02/2013 [place] [facility] [place]: Breast MENTOR DARVIN 04/01/2014 350-7504BC / [id number] / [id number] documented as of this encounter Visit Diagnoses [...] Directives occurred with: Not Discussed Care Teams Flatwork Finisher Relationship Specialty Start Date End Date Susie White MD [address] [place] [address] PCP - General Internal Medicine 03/02/12 documented as of this encounter
--- OUTSIDE RECORDS SUMMARY | 2024-02-18 11:35 | External Medical Summary | Summary of Care ---
Author Name Unknown Organization [facility] Address [address] [facility] [place] [address] Phone [phone] Care Team Providers Care Wood Buffer Name Role Phone Susie White MD Primary Care Provider [phone] Reason for Visit * Reason Onset Date Comments Follow Up 4mo return Immunizations 11/17/2023 Encounter Details Date Type Department Care Team (Late st Contact Info) Description 11/17/2023 11:40 AM EDT Office Visit General Internal Medicine [facility]ion Mcbride [address] [place] [address] Susie White MD 200 [facility] [place] [address] Adjustment disorder with anxious mood*; Stage 3a chronic kidney disease (HCC); Encounter for HCV screening test for low risk patient; Malignant neoplasm of overlapping sites of both breasts in female, estrogen receptor positive (HCC); Encounter for long-term (current) use of medications; Intermittent small bowel obstruction due to adhesions (HCC); Screening for HIV without presence of risk factors; Sarcoidosis; Adjustment insomnia; Microscopic hematuria; Post-mastectomy lymphedema syndrome; 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 90 Tablet 2 11/17/2023 Active Sennosides-Docusate Sodium 8.6-50 MG Oral Capsule [...] for Pain, Moderate. 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 Go to Snapshot for study details. Encounter for examination fo r normal comparison and control in clinical research program 05/16/2012 06/03/2016 Overview: Diagnosis description adjusted per Research Compliance Office. RESEARCH HEM/ONC FOLLOW UP CARE Renamed per the [facility] for Medicare and Medicaid billing requirements to include Clinical Trial.gov number. Trial participant as of: Project #: [id number] PI Name: Cory Infante MD PI CRC Name: Molly Luciana [facility] Contact PI or RUBBER FACTORY WORKER regarding any serious medical event, if new Rx given, ER visit, hospitalization, or billing question Diagnosis changed due to Research Module. Go to Snapshot for study details. documented as of this encounter (statuses as of 11/27/2023) Immunizations Name Administration Dates Next Due COVID-19 [...] Sign Reading Time Taken Comments Blood Pressure 96/62 11/17/2023 11:46 AM EDT Pulse 76 11/17/2023 11:46 AM EDT Temperature 37.3 C (99.1 F) 11/17/2023 11:46 AM E DT Respiratory Rate - - Oxygen Saturation 97% 11/17/2023 11:46 AM EDT Inhaled Oxygen Concentration - - Weight 75 kg (165 lb 4.8 oz) 11/17/2023 11:46 AM EDT Height 167.6 cm (5' 6") 11/17/2023 11:46 AM EDT Body Mass Index 26.68 11/17/2023 11:46 AM EDT documented in this encounter Patient Instructions * Patient Instructions* Sierra Valente LPN - 11/17/2023 11:45 AM EDT ~~PATIENT INSTRUCTIONS FOR TDAP VACCINE~~ Possible side effects of TDAP vaccine, (tetanus shot), are usually mild and can include: 1. Soreness or redness at injection site 2. Low grade fever 3. Body aches You may use a fever / pain reducing medication as needed for these symptoms. LET YOUR DOCTOR KNOW IMMEDIATELY IF YOU HAVE DIFFICULTY BREATHING OR SWALLOWING, EXPERIENCE ITCHINGOF FEET OR HANDS, HAVE SWELLING OF EYES, FACE OR INSIDE OF NOSE. documented in this encounter Progress Notes * Susie White MD - 11/17/2023 11:58 AM EDT Images from the original note were not included. History of Present Illness Shante Cordoba is a 53 year old female that presents for Follow Up (4mo return) and Immunizations 53-year-old female with PMH significant for left multifocal breast cancer stage IIIC s/p bilateral mastectomy with reconstruction and undergoing chemo presents here for recheck. Acute concern :- -anxious and occ trouble sleeping due to uncertainty of when to start proper treatment and waiting game . Trazodone helps the most time but not always Interimmedical history : seen by heme/onc and also at [facility] for second opinion and [employer] started and waiting fur preauth and supply Watching diet and exercise : okay Routine labs : uptodtae Routine HM : uptodtae Chronic medical problem: reviewed and stable . Seen by surgery for f.y of bowel surgery and doing great Physical Exam Vitals: 11/17/23 1146 Temp: 37.3 C (99.1 F) Pulse: 76 SpO2: 97% BP: 96/62 BMI: 26.69 Physical Exam Vitals and nursing note reviewed. Constitutional: General: She is not in acute distress. Appearance: She is normal weight. HENT: Head: Normocephalic. Cardiovascular: Rate and Rhythm: Normal rate and regular rhythm. Pulmonary: Effort: Pulmonary effort is normal. No respiratory distress. Breath sounds: No wheezing. Abdominal: General: Bowel sounds are normal. There is no distension. Palpations: Abdomen is soft. There is no mass. Musculoskeletal: General: No swelling, tenderness or signs of injury. Cervical back: Neck supple. No rigidity. Skin: General: Skin is warm. Findings: No lesion or rash. Neurological: Mental Status: She is alert. Psychiatric: Mood and Affect: Mood normal. I have reviewed the following results: Assessment and Plan Adjustment disorder with anxious mood - busPIRone HCl 5 MG Oral Tablet (Buspar); Take 1 Tablet by mouth every evening. New Trazodone at night Stage 3a chronic kidney disease (HCC) Avoid NSAID like ibuprofen,advil, aleve, naproxyn OTC. Drink plenty of fluid ( 60-64 oz/day ) . Will follow closely in future. - ALBUMIN / CREATININE RATIO, URINE; Future - PHOSPHORUS; Future Encounter for HCV screening test for low risk patient - HEPATITIS C ANTIBODY SCREEN WITH PROGRESSION TO HEPATITIS C RNA QUANTITATIVE; Future Malignant neoplasm of overlapping sites of both breasts in female, estrogen receptor positive (HCC) Encounter for long-term (current) use of medications - VITAMIN B12; Future Intermittent small bowel obstruction due to adhesions (HCC) Screening for HIV without presence of risk factors - HIV ANTIGEN & ANTIBODY SCREEN W/ CONFIRMATION; Future Sarcoidosis Adjustment insomnia Microscopic hematuria 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 * Sierra Valente LPN - 11/17/2023 11:45 AM EDT Immunization Administration Documentation Time Out Procedure Performed: Yes Patient Identified (Ask Name/Date of ): Yes Does the patient have a fever greater than 101 degrees today? No Patient allergic to latex? No VFC Stock: No Immunization(s) verified: Yes, Immunization Name: Tdap (Boostrix), VIS Sheet(s) given: Yes Verified Side and Site: Yes Verified Shot(s) with Parent(s)/Patient: Yes documented in this encounter Nursing Notes * Sierra Valente LPN - 11/17/2023 11:45 AM EDT Chief Complaint Patient presents with Follow Up 4mo return documented in this encounter Plan of Treatment Upcoming Encounters Date Type Department Care Team (Late st Contact Info) Description 11/29/2023 1:30 PM EDT Pharmacy [facility] [address] [place] [address] [facility] Hem/Onc [address] [place] [address] 12/06/2023 8:15 AM EDT Imaging Radiology [address], [address] [place] [address] 12/15/2023 2:45 PM EDT Office Visit Hematology/Oncology [facility] [place] [address] [place] [address] [phone] Cory Infante MD [address] [place] [address] 12/20/2023 10:15 AM EDT Immunization/Inject ion Hematology/Oncology [address], [address] [address] Nurse, Med [address] [place] [address] 01/17/2024 10:15 AM EDT Immunization/Inject ion Hematology/Oncology [address], [address] [phone] Nurse, Med 4 [address] [place] [address] 05/25/2024 10:40 AM EDT Office Visit General Internal Medicine [facility] [place] [address] [address] Susie White MD 200 [facility] [place], [place] [address] 07/24/2024 11:00 AM EST Office Visit Dermatology, [place] [address] [place] [address] Donita Cornejo, AUTUMN [address] [place] [address] [place] [address] Scheduled Procedures Name Priority Associated Diagnoses Date/Ti me COLONOSCOPY FLEXIBLE PROXIMA L DIAGNOSTIC Recall History of colonic polyps Health Maintenance Due Date Last Done Comments Hepatitis B (1 of 3 - 19+ 3-dose series) 1991 GFR 05/22/2024 11/21/2023, 07/08, 04/27/2023, Additional history exists Depression Screening 11/16/2024 11/17/2023 Albumin/Creatinine Ratio 11/20/2024 024, 10/28/2022, 10/12/2021 CKD HGB USE SMARTSET 56251 11/20/202411/20, 11/21/2023, 07/18/2023, Additional history exists CKD PHOS USE SMARTSET 18655 11/20/202411/06, 12/01/2022, 10/12/2021, Additional history exists Pneumococcal [...] this encounter Medical Devices Implanted Type Area Clinical Orthoptist Device Identifier Shelf Expiration Date Model / Serial / Lot Implant Hi Prof Gel 750cc - [id number] Implanted:Qty: 1 on 07/02/2013 at [facility] Right: Breast MENTOR DARVIN 11/30/2013 350-7504BC / [id number] / [id number] Implant Hi Prof Gel 750cc - [id number] Implanted:Qty: 1 on 07/02/2013 at [facility] Left: Breast MENTOR DARVIN 04/01/2014 350-7504BC / [id number] / [id number] documented as of this encounter Results * (ABNORMAL) LIPID PANEL WITH DIRECT LDL IF TG IS HIGH (11/21/2023 7:36 AM EDT) Triglycerides 82 <=174 mg/dL 11/21/2023 7:43 PM EDT [facility] Comment: Triglyceride Reference Ranges (mg/dL): <150 Acceptable 150-174 Borderline high 175-499 High >=500 Very high Cholesterol 200(H) <200 mg/dL 11/21/2023 7:43 PM EDT [facility] Comment: Total Cholesterol Reference Ranges (mg/dL): <200 Desirable 200-239 Borderline high >=240 High HDL Cholesterol 72 >49 mg/dL 7:43 PM EDT [facility] Comment: HDL Cholesterol Reference Ranges (mg/dL): >=60 High (Desirable) <50 Low (Undesirable) For Females <40 Low (Undesirable) For Males Non-HDL Cholesterol 128 <=159 mg/dL 11/21/2023 7:43 PM EDT [facility] [place] Comment: Non-HDL Cholesterol Reference Range (mg/dL): <100 Target level for high risk ASCVD patient <130 Optimal for general population 130-159 Near optimal for general population 160-189 Borderline High 190-219 High >=220 Very High LDL Cholesterol 112 <=129 mg/dL 11/21/2023 7:43 PM EDT [facility] [place] Comment: LDL Cholesterol Reference Ranges (mg/dL): <70 Target level for high risk ASCVD patient <100 Optimal for general population 100-129 Near optimal for general population 130-159 Borderline high 160-189 High >=190 Very high Blood Venous blood specimen / Unknown Venipuncture / Unknown 11/21/2023 7:36 AM EDT 11/21/2023 7:37 AM EDT Susie White MD LAB BLOOD ORDERABLES Performing Organization Address City/[facility] [address]/ZIP Co de Phone Number [facility] [address] [place] [address] * (ABNORMAL) VITAMIN B12 (11/21/2023 7:36 AM EDT) Pathologist [facility] Vitamin B12 >2,000(H) 232 - 1,245 pg/mL 11/21/2023 8:17 PM EDT [facility] Blood Venous blood specimen / Unknown Venipuncture / Unknown 11/21/2023 7:36 AM EDT 11/21/2023 7:37 AM EDT Susie White MD LAB BLOOD ORDERABLES [facility] [address] [place] [address] * HIV ANTIGEN & ANTIBODY SCREEN W/ CONFIRMATION (11/21/2023 7:36 AM EDT) [facility] HIV Antigen & Antibody Negative Negative 11/21/2023 8:09 PM EDT [facility] Comment:Negative HIV-1/2 ant igen and antibody screening tset results usually indicate the absence of HIV-1 and HIV-2 infection. However, such negative results do not rule-out acute HIV infection. If acute HIV-1 infection is highly suspected, it is recommended that a specimen be submitted for detection of HIV-1 RNA. Blood Venous blood specimen / Unknown Venipuncture / Unknown 11/21/2023 7:36 AM EDT 11/21/2023 7:37 AM EDT Susie White MD LAB BLOOD ORDERABLES Performing Organization Address [facility] [address]/[facility] de Phone Number [facility] [address] [place] [address] * PHOSPHORUS (11/21/2023 7:36 AM EDT) Phosphorus 4.3 2.5 - 4.8 mg/dL 11/21/2023 7:43 PM EDT [facility] Blood Venous blood specimen / Unknown Venipuncture / Unknown 11/21/2023 7:36 AM EDT 11/21/2023 7:37 AM EDT Susie White MD LAB BLOOD ORDERABLES Performing Organization Address [facility] [address]/[facility] de Phone Number [facility] [address] [place] [address] * ALBUMIN / CREATININE RATIO, URINE (11/21/2023 7:36 AM EDT) Albumin, Random Urine 1.54 mg/dL 11/21/2023 5:39 PM EDT [facility] Creatinine, Random Urine 127 mg/dL 11/21/2023 5:39 PM EDT [facility] Albumin / Creatinine Ratio, Urine 12 <30 mg/g Creat 11/21/2023 5:39 PM EDT [facility] Urine Urine specimen / Unknown Non-blood Collection / Unknown 11/21/2023 7:36 AM EDT 11/21/2023 7:37 AM EDT Narrative LABORATORY [facility] - 11/21/2023 5:39 PM EDT Normal: <30 mg/g creatinine High: 30-300 mg/g creatinine Very High: >300 mg/g creatinine Nephrotic: >2200 mg/g creatinine Susie White MD LAB URINE ORDERABLES [facility] [address] [place] [address] documented in this encounter Visit Diagnoses Diagnosis Adjustment disorder with anxious mood- Primary Adjustment disorder with anxiety Stage 3a chronic kidney disease (HCC) Encounter for HCV screening test for low risk patient Malignant neoplasm of overlapping sites of both breasts in female, estrogen receptor positive (HCC) Encounter for long-term (current) use of medications Encounter for long-term (current) use of other medications Intermittent small bowel obstruction due to adhesions (HCC) Screening for HIV without presence of risk factors Special screening examination for other specified viral diseases Sarcoidosis Adjustment insomnia Transient disorder of initiating or maintaining sleep Microscopic hematuria 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) Secondary and unspecified malignant neoplasm of intra-abdominal lymph nodes Need for jorxvrpgox-uvwqmca-jrguczttk (Tdap) vaccine Need for prophylactic vaccination with combined adwofohwwz-bhtkqzo-lmpajnfra (DTP) vaccine 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) Secondary and unspecified malignant neoplasm of lymph nodes of axilla and upper limb Liver lesion Other specified disorders of liver Hyperlipidemia with target LDL less than 130 Other and unspecified hyperlipidemia Family hx of melanoma Family history of other specified malignant neoplasm Lipid screening Screening for lipoid disorders documented in this encounter Advance Directives Latest [...] occurred with: Not Discussed Care Teams Wood Buffer Relationship Specialty Start Date End Date Susie White MD [address] [facility] [place] [address] PCP - General Internal Medicine 03/02/12 documented as of this encounter
--- OUTSIDE RECORDS SUMMARY | 2024-02-18 11:35 | External Medical Summary | Summary of Care ---
Author Name Unknown Organization [facility] Address [address] [facility] [place] [address] Phone [phone] Care Team Providers Care Marine Biologist Name Role Phone Susie White MD Primary Care Provider [phone] Encounter Details Date Type Department Care Team (Late st Contact Info) Description 11/25/2023 1:30 PM EDT Nurse Only Hematology/Oncology [facility] [place] [address] [place] [address] [place], Nurse Hem Onc Sc[address] [place] [address] Arrived Allergies No known active allergiesdocumented as [...] Name: Molly Chowdhury CRC Contact PI or STUDIO DIRECTOR regarding any serious medical event, if [...] [facility] Contact PI or STUDIO DIRECTOR regarding any serious medical event, if [...] as of this encounter Progress Notes * Renny Grigsby RN - 11/25/2023 2:08 PM EDT Education completed, consent signed with Dr. Infante. documented in this encounter Plan of Treatment Upcoming Encounters Date Type Department Care Team (Late st Contact Info) Description 12/06/2023 8:15 AM EDT Imaging Radiology [facility]st [facility] [place] [address] [facility] [place] [address] 12/15/2023 2:45 PM EDT Office Visit Hematology/Oncology [facility] [place] 200 [facility] [place] [phone] Cory Infante MD 200 [facility] [place] [address] 12/20/2023 10:15 AM EDT Immunization/Injec tion Hematology/Oncology Treatment, [place] 200 [facility] [place] [phone] Nurse, Med 4 200 [facility] [place] [address] 01/17/2024 10:15 AM EDT Immunization/Injec tion Hematology/Oncology Treatment, [place] 200 [facility] [place] [place] [phone] Nurse, Med 4 200 [facility] [place] [address] 05/25/2024 10:40 AM EDT Office Visit General Internal Medicine [facility] [place] 200 [facility] [place] [address] Susie White MD 200 [facility] [place] [address] 07/24/2024 11:00 AM EST Office Visit Dermatology[address] [place] [address] Donita Cornejo PA-C [address] [place] [address] [place] [address] Scheduled Procedures Name Priority Associated Diagnoses Date/Ti me COLONOSCOPY FLEXIBLE PROXIMA L DIAGNOSTIC Recall History of colonic polyps Health Maintenance Due Date Last Done Comments Hepatitis B (1 of 3 - 19+ 3-dose series) 1991 GFR 05/22/2024 11/21/2023, 07/08, 04/27/2023, Additional history exists Depression Screening 11/16/2024 11/17/2023 Albumin/Creatinine Ratio 11/20/2024 024, 10/28/2022, 10/12/2021 CKD HGB USE SMARTSET 99037 11/20/202411/20, 11/21/2023, 07/18/2023, Additional history exists CKD PHOS USE SMARTSET 58440 11/20/202411/06, 12/01/2022, 10/12/2021, Additional history exists Pneumococcal [...] this encounter Medical Devices Implanted Type Area Program Evaluator Device Identifier Shelf Expiration Date Model / Serial / Lot Implant Hi Prof Gel 750cc - [id number] Implanted:Qty: 1 on 07/02/2013 [place] [facility] Right: Breast MENTOR DARVIN 11/30/2013 350-7504BC / [id number] / [id number] Implant Hi Prof Gel 750cc - [id number] Implanted:Qty: 1 on 07/02/2013 [place] [facility] Left: Breast MENTOR DARVIN 04/01/2014 350-7504BC / [id number] / [id number] documented as of this encounter Advance Directives [...] Directives occurred with: Not Discussed Care Teams Marine Biologist Relationship Specialty Start Date End Date Susie White MD [address] [place] [address] PCP - General Internal Medicine 03/02/12 documented as of this encounter
--- OUTSIDE RECORDS SUMMARY | 2024-02-18 11:35 | External Medical Summary | Summary of Care ---
Author Name Unknown Organization [facility] Address [address] [place] [facility] [place] [place] [place] [address] Phone [phone] Care Team Providers Care Bilingual Office Assistant Name Role Phone Susie White MD Primary Care Provider [phone] Reason for Visit * Reason Onset Date Comments Advice 11/25/2023 Encounter Details Date Type Department Care Team (Late st Contact Info) Description 11/25/2023 Telephone Hematology/Oncology [facility] [place] 200 [facility] [place] [phone] Cory [facility]ante MD [facility] [address] Advice Allergies No known active allergiesdocumented as [...] Infante MD PI CRC Name: Molly Chowdhury [facility] Contact PI or TOWN JUSTICE regarding any serious medical event, if new [...] Infante MD PI CRC Name: Molly Chowdhury [facility] Contact PI or TOWN JUSTICE regarding any serious medical event, if new [...] encounter Miscellaneous Notes * Telephone Encounter - Cory Infante MD - 11/25/2023 4:14 PM EDT She signed the consent. We should get CEA 27 and CA 15-3 tumor marker in her case every monthly. * Telephone Encounter - Renny Grigsby RN - 11/25/2023 2:00 PM EDT Pt in [...] Description 12/06/2023 8:15 AM EDT Imaging Radiology [address], [place] 132 [facility] [place] [address] 12/15/2023 2:45 PM EDT Office Visit Hematology/Oncology [facility] 200 [facility] [place] [phone] Cory Infante MD 200 [facility] [place] [address] 12/20/2023 10:15 AM EDT Immunization/Injec tion Hematology/[address]cology [address], [address] [phone] Nurse, Med 4 [address] [facility] [place] [address] 01/17/2024 10:15 AM EDT Immunization/Injec tion Hematology/Oncology Treatment, [place] [facility] [phone] Nurse, Med 4 200 [place] [address] 05/25/2024 10:40 AM EDT Office Visit General Internal Medicine [facility] 200 [place] [address] Susie White MD 200 [facility] [place] [address] 07/24/2024 11:00 AM EST [facility] [address] [facility] [place] [address] Donita Cornejo PA-C [address] [place] [address] [place] [address] Scheduled Procedures Name Priority Associated Diagnoses Date/Ti me COLONOSCOPY FLEXIBLE PROXIMA L DIAGNOSTIC Recall History of colonic polyps Health Maintenance Due Date Last Done Comments Hepatitis B (1 of 3 - 19+ 3-dose series) 1991 GFR 05/22/2024 11/21/2023, 07/08, 04/27/2023, Additional history exists Depression Screening 11/16/2024 11/17/2023 Albumin/Creatinine Ratio 11/20/2024 024, 10/28/2022, 10/12/2021 CKD HGB USE SMARTSET 75499 11/20/202411/20, 11/21/2023, 07/18/2023, Additional history exists CKD PHOS USE SMARTSET 28590 11/20/202411/06, 12/01/2022, 10/12/2021, Additional history exists Pneumococcal [...] this encounter Medical Devices Implanted Type Area Card Room Manager Device Identifier Shelf Expiration Date Model / Serial / Lot Implant Hi Prof Gel 750cc - [id number] Implanted:Qty: 1 on 07/02/2013 at [place] [facility] [place] Right: Breast MENTOR DARVIN 11/30/2013 350-7504BC / [id number] / [id number] Implant Hi Prof Gel 750cc - [id number] Implanted:Qty: 1 on 07/02/2013 at [place] [facility] [place] Left: Breast MENTOR DARVIN 04/01/2014 350-7504BC / [id number] / [id number] documented as of this encounter Advance Directives [...] Directives occurred with: Not Discussed Care Teams Bilingual Office Assistant Relationship Specialty Start Date End Date Susie White MD 200 [facility] [place] [address] PCP - General Internal Medicine 03/02/12 documented as of this encounter
--- OUTSIDE RECORDS SUMMARY | 2024-02-18 11:35 | External Medical Summary | Summary of Care ---
Author Name Unknown Organization [facility] Address [address] [place] [facility] [place] [address] Phone [phone] Care Team Providers Care Storekeeper Steward Name Role Phone Susie White MD Primary Care Provider [phone] Encounter Details Date Type Department Care Team (Late st Contact Info) Description 11/25/2023 1:30 PM EDT Nurse Only Hematology/Oncology [facility] [place] [address] [place] [phone] G[place]le, Nurse Hem Onc [address] [place] [address] Arrived Allergies No known active allergiesdocumented as [...] Name: Molly Chowdhury [facility] Contact PI or BRICK WASHER regarding any serious medical event, if new [...] Infante MD PI CRC Name: Molly Chowdhury [facility] Contact PI or BRICK WASHER regarding any serious medical event, if new [...] Description 12/06/2023 8:15 AM EDT Imaging Radiology [facility] 1st [facility], [place] [address] [facility] [place] [address] 12/15/2023 2:45 PM EDT Office Visit Hematology/Oncology [facility] [place] 200 [facility] [place] [phone] Cory Infante MD 200 [facility] [place] [address] 12/20/2023 10:15 AM EDT Immunization/Injec tion Hematology/Oncology Treatment, [place] 200 [facility] Bj [place] [phone] Nurse, Med 4 200 [facility] [place] [address] 01/17/2024 10:15 AM EDT Immunization/Injec tion Hematology/Oncology Treatment, [place] 200 [facility] [place] [phone] Nurse, Med 4 200 [facility] [place] [address] 05/25/2024 10:40 AM EDT Office Visit General Internal Medicine [facility] [place] 200 [facility] [place] [address] Susie White MD 200 [facility] [place] [address] 07/24/2024 11:00 AM EST Office Visit Dermatology[address] [place] [address] Donita Cornejo PA-C [address] [place] [address] [place] [address] Scheduled Procedures Name Priority Associated Diagnoses Date/Ti me COLONOSCOPY FLEXIBLE PROXIMA L DIAGNOSTIC Recall History of colonic polyps Health Maintenance Due Date Last Done Comments Hepatitis B (1 of 3 - 19+ 3-dose series) 1991 GFR 05/22/2024 11/21/2023, 07/08, 04/27/2023, Additional history exists Depression Screening 11/16/2024 11/17/2023 Albumin/Creatinine Ratio 11/20/2024 024, 10/28/2022, 10/12/2021 CKD HGB USE SMARTSET 38613 11/20/202411/20, 11/21/2023, 07/18/2023, Additional history exists CKD PHOS USE SMARTSET 66856 11/20/202411/06, 12/01/2022, 10/12/2021, Additional history exists Pneumococcal [...] this encounter Medical Devices Implanted Type Area Buttonhole Facer Device Identifier Shelf Expiration Date Model / Serial / Lot Implant Hi Prof Gel 750cc - [id number] Implanted:Qty: 1 on 07/02/2013 at [place] [facility] [place] Right: Breast MENTOR DARVIN 11/30/2013 350-7504BC / [id number] / [id number] Implant Hi Prof Gel 750cc - [id number] Implanted:Qty: 1 on 07/02/2013 at [place] [facility] [place] Left: Breast MENTOR DARVIN 04/01/2014 350-7504BC / [id number] / [id number] documented as of this encounter Advance Directives [...] Directives occurred with: Not Discussed Care Teams Storekeeper Steward Relationship Specialty Start Date End Date Susie White MD 200 [place] [address] PCP - General Internal Medicine 03/02/12 documented as of this encounter
--- OUTSIDE RECORDS SUMMARY | 2024-02-18 11:35 | External Medical Summary | Summary of Care ---
Author Name Unknown Organization [facility] Address [address] [place] [address] Phone [phone] Care Team Providers Care Channeling Machine Operator Name Role Phone Susie White MD Primary Care Provider [phone] Reason for Visit * Reason Onset Date Comments Precert Future 11/15/2023 Encounter Details Date Type Department Care Team (Late st Contact Info) Description 11/15/2023 Telephone Hematology/Oncology Treatment, [place] [address] [place] [address] Clarence Patel MD 200 [place], [place] [phone] Precert Future Allergies No known active allergiesdocumented [...] Name: Molly Chowdhury CRC Contact PI or ARMY SENIOR OFFICER regarding any serious medical event, if [...] Name: Molly Chowdhury CRC Contact PI or ARMY SENIOR OFFICER regarding any serious medical event, if [...] Description 12/06/2023 8:15 AM EDT Imaging Radiology [address] 132 [facility] [place] [address] 12/15/2023 2:45 PM EDT Office [facility] 200 [facility] [place] [phone] Cory Infante MD 200 [facility] [place] [address] 12/20/2023 10:15 AM EDT Immunization/Injec tion Hematology/Oncology Treatment, [place] 200 [place] [phone] Nurse, Med 4 200 [facility] [place] [address] 01/17/2024 10:15 AM EDT Immunization/Injec tion Hematology/Oncology Treatment, [place] 200 [place] [phone] Nurse, Med 4 200 [facility] [place] [address] 05/25/2024 10:40 AM EDT Office Visit General Internal Medicine [facility] 200 [facility] [place] [address] Susie White MD 200 [facility] [place] [address] 07/24/2024 11:00 AM EST Office Visit [address] [phone] Donita Cornejo PA-C [address] [place] [address] [place] [phone] Scheduled Procedures Name Priority Associated Diagnoses Date/Ti me COLONOSCOPY FLEXIBLE PROXIMA L DIAGNOSTIC Recall History of colonic polyps Health Maintenance Due Date Last Done Comments Hepatitis B (1 of 3 - 19+ 3-dose series) 1991 GFR 05/22/2024 11/21/2023, 07/08, 04/27/2023, Additional history exists Depression Screening 11/16/2024 11/17/2023 Albumin/Creatinine Ratio 11/20/202411/20/2 024, 10/28/2022, 10/12/2021 CKD HGB USE SMARTSET 71317 11/20/202411/20, 11/21/2023, 07/18/2023, Additional history exists CKD PHOS USE SMARTSET 89362 11/20/202411/06, 12/01/2022, 10/12/2021, Additional history exists Pneumococcal [...] this encounter Medical Devices Implanted Type Area Information Strategist Device Identifier Shelf Expiration Date Model / Serial / Lot Implant Hi Prof Gel 750cc - [id number] Implanted:Qty: 1 on 07/02/2013 at [place] [facility] [place] Right: Breast MENTOR DARVIN 11/30/2013 350-7504BC / [id number] / [id number] Implant Hi Prof Gel 750cc - [id number] Implanted:Qty: 1 on 07/02/2013 at [place] [facility] [place] Left: Breast MENTOR DARVIN 04/01/2014 [id number] / [id number] / [id number] documented as of this encounter Results * HEMOGLOBIN A1C (11/21/2023 7:36 AM EDT) [facility] Hemoglobin A1C 5.1 4.0 - 5.6 % 11/21/2023 7:12 PM EDT LABORATORY [facility] Comment:The use of HbA1c to monitor glycemic status is based on normal hemoglobin and HbA composition. This test should not be used in patients with abnormal hemoglobin that affects the half life of the red blood cell or the in vivo glycation rates. Estimated Average Glucose 100 <126 mg/dL 11/21/2023 7:12 PM EDT LABORATORY [facility] Blood Venous blood specimen / Unknown Venipuncture / Unknown 11/21/2023 7:36 AM EDT 11/21/2023 7:37 AM EDT Clarence Patel MD LAB BLOOD ORDERA BLES LABORATORY [facility] [address] [place] [address] * (ABNORMAL) COMPREHENSIVE METABOLIC PANEL (11/21/2023 7:36 AM EDT) [facility] BUN 13 6 - 20 mg/dL 11/21/2023 7:43 PM EDT LABORATORY [facility] Creatinine 1.1(H) 0.5 - 1.0 mg/dL 11/21/2023 7:43 PM EDT LABORATORY [facility] Estimated Glomerular Filtration Rate 60 >=60 mL/min 11/21/2023 7:43 PM EDT LABORATORY [facility] Comment:eGFR is calculated b ased on the CKD-EPI 2020 equation Sodium 139 135 - 146 mmol/L 11/21/2023 7:43 PM EDT LABORATORY [facility] Potassium 4.5 3.5 - 5.1 mmol/L 11/21/2023 7:43 PM EDT LABORATORY [facility] Chloride 104 98 - 107 mmol/L 11/21/2023 [...] LAB BLOOD ORDERA BLES Performing Organization Address [facility] Co de Phone Number LABORATORY [facility] [address] [place] [address] * HEPATITIS B CORE ANTIBODIES IGG AND IGM (11/21/2023 7:36 AM EDT) Hepatitis B Core Antibodies IgG and IgM Negative Negative 11/21/2023 8:09 PM EDT LABORATORY [facility] Blood Venous blood specimen / Unknown Venipuncture / Unknown 11/21/2023 7:36 AM EDT 11/21/2023 7:37 AM EDT Clarence Patel MD LAB BLOOD ORDERA BLES Performing Organization Address City/[facility]/ZIP Co de Phone Number LABORATORY [facility] [address] [place] [address] * HEPATITIS B SURFACE ANTIGEN (11/21/2023 7:36 AM EDT) Hepatitis B Surface Antigen Negative Negative 11/21/2023 8:09 PM EDT LABORATORY [facility] Blood Venous blood specimen / Unknown Venipuncture / Unknown 11/21/2023 7:36 AM EDT 11/21/2023 7:37 AM EDT Clarence Patel MD LAB BLOOD ORDERA BLES LABORATORY [facility] [address] [place] [address] * HEPATITIS B SURFACE ANTIBODY (11/21/2023 7:36 AM EDT) Hepatitis B Surface Antibody, Quantitative <3.5 mIU/mL 11/21/2023 8:09 PM EDT LABORATORY [facility] Hepatitis B Surface Antibody, Qualitative Negative 11/21/2023 8:09 PM EDT LABORATORY [facility] Hepatitis B Surface Antibody, Interpretation NOT immune to Hepatitis B Virus 11/21/2023 8:09 PM EDT LABORATORY [facility] Comment: POSITIVE: >=11.5 mIU/mL INDETERMINATE: 8.5-<11.5 mIU/mL NEGATIVE: <8.5 mIU/mL Blood Venous blood specimen / Unknown Venipuncture / Unknown 11/21/2023 7:36 AM EDT 11/21/2023 7:37 AM EDT Clarence Patel MD LAB BLOOD ORDERA BLES LABORATORY [facility] [address] [place] [address] documented in this encounter Visit Diagnoses Diagnosis [...] Directives occurred with: Not Discussed Care Teams Channeling Machine Operator Relationship Specialty Start Date End Date Susie White MD 200 [place] [address] PCP - General Internal Medicine 03/02/12 documented as of this encounter
--- OUTSIDE RECORDS SUMMARY | 2024-02-18 11:35 | External Medical Summary | Summary of Care ---
Author Name Unknown Organization [facility] Address [address] [facility] [address] Phone [phone] Care Team Providers Care Customer Service Rep Name Role Phone Susie White MD Primary Care Provider [phone] Reason for Visit * Reason Onset Date Comments Precert Pending 11/16/2023 Ashley Encounter Details Date Type Department Care Team (Late st Contact Info) Description 11/16/2023 Telephone Hematology/Oncology [facility] [place] [address] [facility] [place] [phone] Clarence Patel MD [address] [facility] [place] [address] Precert Pending (Ashley) Allergies No known active allergiesdocumented as of [...] AT BEDTIME 90 Tablet 3 11/16/2023 Active Sennosides-Docusate Sodium 8.6-50 MG Oral Capsule [...] Name: Molly Chowdhury CRC Contact PI or BRAIDING MACHINE TENDER regarding any serious medical event, if new [...] Name: Molly Chowdhury CRC Contact PI or BRAIDING MACHINE TENDER regarding any serious medical event, if new [...] Telephone Encounter - Ashley Munoz OSA - 11/23/2023 10:17 AM EDT Received fax back from [employer]. They are asking for documentation that the member has PIK3CA or AKtI or PTEN alterations as detected by and FDA-approved test. Faxed information over to [phone]. Thank you, Ashley Munoz Medication Industrial Aerial Installer 11/23/2023, 10:18 AM * Telephone Encounter - Ashley Munoz OSA - 11/17/2023 3:19 PM EDT [facility] Authorization Submission Submission Information: Medication: Capivasertib 200 mg Tabs (Truqap) Portal used: Over phone Insurance: [employer] Authorization #/Elliott: [id number] Thank you, Ashley Munoz Medication Industrial Aerial Installer 11/17/2023, 3:20 PM * Telephone Encounter - Jacqueline Hedrick [facility] - 11/16/2023 3:54 PM EDT Can you please submit the following medication? ICD-10: Metastatic Breast Cancer, C50.811, C50.812, Z17.0 Start date: TBD Drugs: Capivasertib (Truqap) 200 mg tablets Dose: 400 mg twice daily (~12 hours apart) for 4 consecutive days, followed by 3 days off (administer capivasertib on days 1 to 4 of each week) Multidisciplinary Clinic note: Recommended in [facility] notes from 11/02/[address] Patel on 11/14/23 Physician: Dr. Patel Comments: N/A Concurrent Therapy: yes, fulvestrant Jacqueline Hedrick, PharmD, BCOP Ambulatory Clinical Pharmacist | Oral Chemotherapy Clinic [facility] 11/16/2023, 3:59 PM documented in this encounter Plan of Treatment Upcoming Encounters Date Type Department Care Team (Late st Contact Info) Description 11/23/2023 1:30 PM EDT Pharmacy Pharmacy Hematology Oncology [facility] [address] [place] [address] [facility] Hem/Onc [address] [place] [address] 11/25/2023 1:30 PM EDT Nurse Only Hematology/Oncology [facility] [place] [address] [place] [phone] Gisele, Nurse Hem Onc [facility] 200 [facility] [place] [address] 12/06/2023 8:15 AM EDT Imaging Radiology [facility] 1st [facility], [address] [address] 12/15/2023 2:45 PM EDT Office Visit Hematology/Oncology [facility] [place] [address] [place] [phone] Cory Infante MD [address] [place] [address] 12/20/2023 10:15 AM EDT Immunization/Inject ion Hematology/Oncology Treatment, [place] [address] [place] [phone] Nurse, Med [address] [address] 01/17/2024 10:15 AM EDT Immunization/Inject ion Hematology/Oncology Treatment, [place] [address] [place] [phone] Nurse, Med [address] [facility] [place] [address] 05/25/2024 10:40 AM EDT Office Visit General Internal Medicine [facility] [address] [facility] [place] [address] Susie White MD [address] [facility] [place] [address] 07/24/2024 11:00 AM EST Office Visit Dermatology[address] [place] [address] Donita Cornejo, PA-C [address] [place] [address] [place] [address] Scheduled Procedures Name Priority Associated Diagnoses Date/Ti me COLONOSCOPY FLEXIBLE PROXIMA L DIAGNOSTIC Recall History of colonic polyps Health Maintenance Due Date Last Done Comments Hepatitis B (1 of 3 - 19+ 3-dose series) 1991 GFR 05/22/2024 11/21/2023, 07/08, 04/27/2023, Additional history exists Depression Screening 11/16/2024 11/17/2023 Albumin/Creatinine Ratio 11/20/20242 024, 10/28/2022, 10/12/2021 CKD HGB USE SMARTSET 75116 11/20/202411/20, 11/21/2023, 07/18/2023, Additional history exists CKD PHOS USE SMARTSET 96586 11/20/202411/06, 12/01/2022, 10/12/2021, Additional history exists Pneumococcal [...] encounter Medical Devices Implanted Type Area Information Assurance Specialist Device Identifier Shelf Expiration Date Model / Serial / Lot Implant Hi Prof Gel 750cc - [id number] Implanted:Qty: 1 on 07/02/2013 at [place] [facility] [place] Right: Breast MENTOR DARVIN 11/30/2013 350-7504BC / [id number] / [id number] Implant Hi Prof Gel 750cc - [id number] Implanted:Qty: 1 on 07/02/2013 at [place] [facility] [place] Left: Breast MENTOR DARVIN 04/01/2014 350-7504BC / [id number] / [id number] documented as of this encounter Advance Directives [...] occurred with: Not Discussed Care Teams Customer Service Rep Relationship Specialty Start Date End Date Susie White MD 200 [place] [address] PCP - General Internal Medicine 03/02/12 documented as of this encounter"
--- OUTSIDE RECORDS SUMMARY | 2024-02-18 11:35 | External Medical Summary | Summary of Care ---
Author Name Unknown Organization [facility] Address [address] [facility] [place] [address] Phone [phone] Care Team Providers Care Hospice Superintendent Name Role Phone Susie White MD Primary Care Provider [phone] Reason for Visit * Reason Onset Date Comments Advice 11/25/2023 Encounter Details Date Type Department Care Team (Late st Contact Info) Description 11/25/2023 Telephone Hematology/Oncology [facility] [place] 200 [facility] [place] [phone] Cory [facility]ante [facility] [address] Advice Allergies No known active allergiesdocumented as of this encounter (statuses as of 11/28/2023) Medications Medication Sig Dispensed Refills Start Date [...] as of this encounter (statuses as of 11/28/2023) Active Problems Problem Noted Date Diagnosed Date [...] as of this encounter (statuses as of 11/28/2023) Resolved Problems Problem Noted Date Diagnosed Date [...] [facility] Contact PI or PLAQUE MAKER regarding any serious medical event, if [...] [facility] Contact PI or PLAQUE MAKER regarding any serious medical event, if new Rx given, ER visit, hospitalization, or billing question Diagnosis changed due to Research Module. Go to Snapshot for study details. documented as of this encounter (statuses as of 11/28/2023) Immunizations Name Administration Dates Next Due COVID-19 [...] as of this encounter Miscellaneous Notes * Addendum Note - Renny Benitez RN - 11/28/2023 8:43 AM EDTAddended by: RENNY BENITEZ on: 11/28/2023 08:43 AM Modules accepted: Orders * Telephone Encounter - Renny Benitez RN - 11/28/2023 8:43 AM EDT Labs ordered monthly. MT- fyi. * Telephone Encounter - Cory Infante MD - 11/25/2023 4:14 PM EDT She signed the consent. We should get CEA 27 and CA 15-3 tumor marker in her case every monthly. * Telephone Encounter - Renny Benitez RN - 11/25/2023 2:00 PM EDT Pt [...] 1:30 PM EDT Pharmacy Pharmacy Hematology Oncology [facility] [address] [place] [address] [facility], [facility] Hem/Onc [address] [place] [address] 12/06/2023 8:15 AM EDT Imaging [facility] [address] [place] [address] 12/15/2023 2:45 PM EDT Office Visit Hematology/Oncology [facility] 200 [facility] [place] [phone] Cory Infante MD 200 [facility] [place] [address] 12/20/2023 10:15 AM EDT Immunization/Inject ion Hematology/Oncology Treatment, [place] [facility] [phone] Nurse, Med 4 200 [facility] [place] [address] 01/17/2024 10:15 AM EDT Immunization/Inject ion Hematology/Oncology Treatment, [place] [address] [facility] [phone] Nurse, Med 4 200 [facility] [place] [address] 05/25/2024 10:40 AM EDT Office Visit General Internal Medicine [facility] 200 [facility] [place] [address] Susie White MD 200 [facility] [place] [address] 07/24/2024 11:00 AM EST Office Visit Dermatology[address] [address] Donita Cornejo PA-C [address] [place] [address] [place] [address] Scheduled Orders Name Type Priority Associated Diagnoses Orde r Schedule CA 27.29 Lab Routine 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) Malignant neoplasm of overlapping sites of both breasts in female, estrogen receptor positive (HCC) 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) Every Month for 12 Occurrences starting 11/28/2023 until 11/27/2024 CA 15-3 Lab Routine 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) Malignant neoplasm of overlapping sites of both breasts in female, estrogen receptor positive (HCC) 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) Every Month for 12 Occurrences starting 11/28/2023 until 11/27/2024 Scheduled Procedures Name Priority Associated Diagnoses Date/Ti me COLONOSCOPY FLEXIBLE PROXIMA L DIAGNOSTIC Recall History of colonic polyps Health Maintenance Due Date Last Done Comments Hepatitis B (1 of 3 - 19+ 3-dose series) 1991 GFR 05/22/2024 11/21/2023, 07/08, 04/27/2023, Additional history exists Depression Screening 11/16/2024 11/17/2023 Albumin/Creatinine Ratio 11/20/2024 024, 10/28/2022, 10/12/2021 CKD HGB USE SMARTSET 95915 11/20/202411/20, 11/21/2023, 07/18/2023, Additional history exists CKD PHOS USE SMARTSET 75563 11/20/202411/06, 12/01/2022, 10/12/2021, Additional history exists Pneumococcal [...] this encounter Medical Devices Implanted Type Area Machined Parts Quality Inspector Device Identifier Shelf Expiration Date Model / Serial / Lot Implant Hi Prof Gel 750cc - [id number] [place]ed:Q[place] 1 [place] [facility] [place] Breast MENTOR DARVIN 11/30/2013 350-7504BC / [id number] / [id number] Implant Hi Prof Gel 750cc - [id number] Implanted:Qty: 1 on 07/02/2013 [place] [facility] [place]: Breast MENTOR DARVIN 04/01/2014 350-7504BC / [id number] / [id number] documented as of this encounter Visit Diagnoses Diagnosis Malignant neoplasm of overlapping sites of both breasts in female, estrogen receptor positive (HCC)- Primary 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
--- OUTSIDE RECORDS SUMMARY | 2024-02-18 11:35 | External Medical Summary | Summary of Care ---
Author Name Unknown Organization [facility] Address [address] [place] [address] Phone [phone] Care Team Providers Care Auto Crane Driver Name Role Phone Susie White MD Primary Care Provider [phone] Reason for Visit * Reason Comments Medication Management Encounter Details Date Type Department Care Team (Late st Contact Info) Description 11/25/2023 1:30 PM EDT Pharmacy Pharmacy Hematology Oncology [facility] [address] [place] [address] [facility] Hem/Onc [address] [place] [address] Malignant neoplasm of overlapping sites of both [...] Name: Molly Chowdhury CRC Contact PI or HISTORIC SITES SUPERVISOR regarding any serious medical event, if [...] Infante MD PI CRC Name: Molly Chowdhury [facility] Contact PI or HISTORIC SITES SUPERVISOR regarding any serious medical event, if [...] of this encounter Progress Notes * Johana Carrasquillo CPhT - 11/25/2023 3:05 PM EDT MEDICATION THERAPY MANAGEMENT CAPIVASERTIB INITIAL INTAKE NOTE Shante Cordoba [phone] Patient Phone Numbers [facility] [phone] Communication: Chart review Treatment: Medication: Capivasertib (Truqap) Indication/Staging/Diagnosis Code: Metastatic Breast Cancer, ER+, KY+, HER2-, PIK3CA mutation C50.811, C50.812, Z17.0 Dose: 400 mg twice daily (~12 hours apart) for 4 consecutive days, followed by 3 days off (administer capivasertib on days 1 to 4 of each week) Administration: +/- food Start Date: TBD Primary Brake Repair Mechanic/Oncologist: Dr. Patel [id number] Study Additional Therapy: Fulvestrant Supportive Care Meds: Cetirizine Ondansetron Loperamide Urea Cream Cycle Dates C1 TBD C2 TBD The Hematology/Oncology Oral Chemotherapy Clinic will assess medication compliance at each patient encounter Yes/no Date Action Taken [place] plan entered? Yes 11/17/23 Consent completed? Yes 11/25/23 Intro/med rec completed? Precert completed? Pending Submitted 11/16 - [employer] Additional documentation faxed 11/22 per [employer] request that member has PIK3CA or Aktl or PTEN alterations as detected by and FDA approved test Test claim completed? Financial assistance needed? Physician signature? No Rx released? Education completed? Will follow up in 2 days to check on precert status and to check on physician approval [facility] will contact patient once med shipped/received to complete medication education Please refer to initial intake note for detailed review of regimen and patient- specific education points Johana Carrasquillo [facility] Oral Chemotherapy Clinic 11/25/2023 3:52 PM documented in this encounter Plan of Treatment Upcoming Encounters Date Type Department Care Team (Late st Contact Info) Description 11/29/2023 1:30 PM EDT Pharmacy Pharmacy Hematology Oncology [facility], [place] [address] [place] [address] [facility] Hem/Onc [address] [place] [address] 12/06/2023 8:15 AM EDT Imaging Radiology [address] [place] [address] 12/15/2023 2:45 PM EDT Office Visit Hematology/Oncology [facility] 200 [facility] [place], [place] [phone] Cory Infante MD 200 [facility] [place] [address] 12/20/2023 10:15 AM EDT Immunization/Inject ion Hematology/Oncology Treatment, [address], [place] [phone] Nurse, Med 4 200 [facility] [place], [place] [address] 01/17/2024 10:15 AM EDT Immunization/Inject ion Hematology/Oncology Treatment, [address], [place] [phone] Nurse, Med 4 [address] [facility] [address] [place], [place] [address] 05/25/2024 10:40 AM EDT Office Visit General Internal Medicine [facility] 200 [facility] [place], [place] [address] Susie White MD 200 [facility] [place], [place] [address] 07/24/2024 11:00 AM EST Office Visit [address] [address] Donita Cornejo PA-C [address] [place] [address] [place] [address] Scheduled Procedures Name Priority Associated Diagnoses Date/Ti me COLONOSCOPY FLEXIBLE PROXIMA L DIAGNOSTIC Recall History of colonic polyps Health Maintenance Due Date Last Done Comments Hepatitis B (1 of 3 - 19+ 3-dose series) 1991 GFR 05/22/2024 11/21/2023, 1208/2022, 04/27/2023, Additional history exists Depression Screening 11/16/2024 11/17/2023 Albumin/Creatinine Ratio 11/20/2024 024, 10/28/2022, 10/12/2021 CKD HGB USE SMARTSET 29482 11/20/202411/20, 11/21/2023, 07/18/2023, Additional history exists CKD PHOS USE SMARTSET 40710 11/20/2024 04/12/2023, 12/01/2022, 10/12/2021, Additional history exists [...] this encounter Medical Devices Implanted Type Area Page Technician Device Identifier Shelf Expiration Date Model / Serial / Lot Implant Hi Prof Gel 750cc - [id number] Implanted:Qty: 1 on 07/02/2013 [place] [facility] [place] Right: Breast [employer] DARVIN 11/30/2013 350-7344BC / [id number] / [id number] Implant Hi Prof Gel 750cc - [id number] Implanted:Qty: 1 on 07/02/2013 at [place] [facility] [place] Left: Breast MENTOR DARVIN 04/01/2014 350-7504BC / [id number] / [id number] documented as of this encounter Visit Diagnoses [...] Directives occurred with: Not Discussed Care Teams Auto Crane Driver Relationship Specialty Start Date End Date Susie White MD 200 [facility] [place] [address] PCP - General Internal Medicine 03/02/12 documented as of this encounter
--- OUTSIDE RECORDS SUMMARY | 2024-02-18 11:35 | External Medical Summary | Summary of Care ---
Author Name Unknown Organization [facility] Address [address] [facility] [place] [address] Phone [phone] Care Team Providers Care Cotton Bag Clipper Name Role Phone Susie White MD Primary Care Provider [phone] Encounter Details Date Type Department Care Team (Late st Contact Info) Description 11/25/2023 1:30 PM EDT Nurse Only Hematology/Oncology [facility] [place] [address] [place] [phone] [place], Nurse Hem Onc [address] [address] [place] [address] Arrived Allergies No known active allergiesdocumented as [...] Name: Molly Chowdhury CRC Contact PI or LOW VISION THERAPIST regarding any serious medical event, if new [...] MD PI CRC Name: Molly Chowdhury [facility] Contact PI or LOW VISION THERAPIST regarding any serious medical event, if new [...] Description 12/06/2023 8:15 AM EDT Imaging Radiology [facility] 1st [facility], [place] [address] [facility] [place] [address] 12/15/2023 2:45 PM EDT Office Visit Hematology/Oncology [facility] [place] 200 [facility] [place] [phone] Cory Infante MD 200 [facility] [place] [address] 12/20/2023 10:15 AM EDT Immunization/Injec tion Hematology/Oncology Treatment, [place] 200 [facility] [place] [phone] Nurse, Med 4 200 [facility] [place] [address] 01/17/2024 10:15 AM EDT Immunization/Injec tion Hematology/Oncology Treatment, [place] 200 [facility] [place] [phone] Nurse, Med 4 200 [facility] [place] [address] 05/25/2024 10:40 AM EDT Office Visit General Internal Medicine [facility] [place] 200 [facility] [place] [address] Susie White MD 200 [facility] [place] [address] 07/24/2024 11:00 AM EST Office Visit Dermatology[address] [place] [address] Donita Cornejo PA-C [address] [place] [address] [place] [address] Scheduled Procedures Name Priority Associated Diagnoses Date/Ti me COLONOSCOPY FLEXIBLE PROXIMA L DIAGNOSTIC Recall History of colonic polyps Health Maintenance Due Date Last Done Comments Hepatitis B (1 of 3 - 19+ 3-dose series) 1991 GFR 05/22/2024 11/21/2023, 07/08, 04/27/2023, Additional history exists Depression Screening 11/16/2024 11/17/2023 Albumin/Creatinine Ratio 11/20/2024 024, 10/28/2022, 10/12/2021 CKD HGB USE SMARTSET 05209 11/20/202411/20, 11/21/2023, 07/18/2023, Additional history exists CKD PHOS USE SMARTSET 59293 11/20/202411/06, 12/01/2022, 10/12/2021, Additional history exists Pneumococcal [...] this encounter Medical Devices Implanted Type Area Lpta Device Identifier Shelf Expiration Date Model / Serial / Lot Implant Hi Prof Gel 750cc - [id number] Implanted:Qty: 1 on 07/02/2013 at [place] [facility] [place] Right: Breast MENTOR DARVIN 11/30/2013 350-7504BC / [id number] / [id number] Implant Hi Prof Gel 750cc - [id number] Implanted:Qty: 1 on 07/02/2013 at [place] [facility] [place] Left: Breast MENTOR DARVIN 04/01/2014 350-7504BC / [id number] / [id number] documented as of this encounter Advance Directives [...] Directives occurred with: Not Discussed Care Teams Cotton Bag Clipper Relationship Specialty Start Date End Date Susie White MD 200 [place] [address] PCP - General Internal Medicine 03/02/12 documented as of this encounter
--- OUTSIDE RECORDS SUMMARY | 2024-02-18 11:35 | External Medical Summary | Summary of Care ---
Author Name Unknown Organization [facility] Address [address] [place] [facility] [place] [address] Phone [phone] Care Team Providers Care Executive Casino Host Name Role Phone Susie White MD Primary Care Provider [phone] Reason for Visit * Reason Onset Date Comments Precert Denied 11/16/2023 Encounter Details Date Type Department Care Team (Late st Contact Info) Description 11/16/2023 Telephone Hematology/Oncology [facility] [place] [address] [place] [address] Clarence Patel MD [address] [place] [address] Precert Denied Allergies No known active allergiesdocumented as of [...] Name: Molly Chowdhury CRC Contact PI or DEMOLITION ENGINEER regarding any serious medical event, if [...] Name: Molly Chowdhury CRC Contact PI or DEMOLITION ENGINEER regarding any serious medical event, if [...] Telephone Encounter - Ashley Munoz OSA - 11/29/2023 10:29 AM EDT New or re-auth: New authorization Approved/Denied: Denied Drug Name and Formulation: CAPIVASERTIB 200 MG (TRUQAP) How Prescribed(directions/sig): Take 400 mg by mouth in the morning and 400 mg before bedtime. Takeon days 1-4k 8-11, 15-18, and 22-25 of each cycle. Day Supply: 30 Did you receive insurance information from outside the chart? No, received insurance information within the chart Valid auth start date: N/A Valid auth end date: N/A Rx Insurance Info: [facility] Reference #: [id number] Rx Benefits Verified through/on date: 11/23/2023 Referral (TE) received from: [facility] Thank you, Ashley Munoz Medication Steel Cutter 11/29/2023, 10:29 AM * Telephone Encounter - Ashley Munoz OSA - 11/23/2023 10:17 AM EDT Received fax back from [employer]. They are asking for documentation that the member has PIK3CA or AKtI or PTEN alterations as detected by and FDA-approved test. Faxed information over to [phone]. Thank you, Ashley Munoz Medication Steel Cutter 11/23/2023, 10:18 AM * Telephone Encounter - Ashley Munoz OSA - 11/17/2023 3:19 PM EDT [facility] Authorization Submission Submission Information: Medication: Capivasertib 200 mg Tabs (Truqap) Portal used: Over phone Insurance: [employer] Authorization #/Elliott: [id number] Thank you, Ashley Munoz Medication Steel Cutter 11/17/2023, 3:20 PM * Telephone Encounter - Jacqueline Hedrick RPh - 11/16/2023 3:54 PM EDT Can you please submit the following medication? ICD-10: Metastatic Breast Cancer, C50.811, C50.812, Z17.0 Start date: TBD Drugs: Capivasertib (Truqap) 200 mg tablets Dose: 400 mg twice daily (~12 hours apart) for 4 consecutive days, followed by 3 days off (administer capivasertib on days 1 to 4 of each week) Multidisciplinary Clinic note: Recommended in [facility] notes from 11/02/[address] Patel on 11/14/23 Physician: Dr. Patel Comments: N/A Concurrent Therapy: yes, fulvestrant Jacqueline Hedrick, PharmD, BCOP Ambulatory Clinical Pharmacist | Oral Chemotherapy Clinic [facility] 11/16/2023, 3:59 PM documented in this encounter Plan of Treatment Upcoming Encounters Date Type Department Care Team (Late st Contact Info) Description 11/29/2023 1:30 PM EDT Pharmacy Pharmacy Hematology Oncology [facility] [address] [place] [address] [facility] Hem/Onc [address] [place] [address] 12/06/2023 8:15 AM EDT Imaging Radiology [address], [place] [address] [facility] [place] [address] 12/15/2023 2:45 PM EDT Office Visit Hematology/Oncology [facility] [place] 200 [facility] [place] [phone] Cory Infante MD 200 [facility] [place] [address] 12/20/2023 10:15 AM EDT Immunization/Inject ion Hematology/Oncology [address], [address] [phone] Nurse, Med [address] [facility] [place] [address] 01/17/2024 10:15 AM EDT Immunization/Inject ion Hematology/Oncology [address], [address] [phone] Nurse, Med [address] [facility] [place] [address] 05/25/2024 10:40 AM EDT Office Visit General Internal Medicine [facility] [place] 200 [facility] [place] [address] Susie White MD 200 [facility] [place] [address] 07/24/2024 11:00 AM EST Office Visit [address] [address] Donita Cornejo PA-C [address] [place] [address] [place] [address] Scheduled Procedures Name Priority Associated Diagnoses Date/Ti me COLONOSCOPY FLEXIBLE PROXIMA L DIAGNOSTIC Recall History of colonic polyps Health Maintenance Due Date Last Done Comments Hepatitis B (1 of 3 - 19+ 3-dose series) 1991 GFR 05/22/2024 11/21/2023, 07/08, 04/27/2023, Additional history exists Depression Screening 11/16/2024 11/17/2023 Albumin/Creatinine Ratio 11/20/2024 024, 10/28/2022, 10/12/2021 CKD HGB USE SMARTSET 03537 11/20/202411/20, 11/21/2023, 07/18/2023, Additional history exists CKD PHOS USE SMARTSET 85425 11/20/202411/06, 12/01/2022, 10/12/2021, Additional history exists Pneumococcal [...] this encounter Medical Devices Implanted Type Area Harness Fitter Device Identifier Shelf Expiration Date Model / Serial / Lot Implant Hi Prof Gel 750cc - [id number] Implanted:Qty: 1 on 07/02/2013 [place] [facility] [place] Right: Breast MENTOR DARVIN 11/30/2013 350-7504BC / [id number] / [id number] Implant Hi Prof Gel 750cc - [id number] Implanted:Qty: 1 on 07/02/2013 at [facility] Left: Breast MENTOR DARVIN 04/01/2014 350-7504BC / [id number] / [id number] documented as of this encounter Advance Directives [...] Directives occurred with: Not Discussed Care Teams Executive Casino Host Relationship Specialty Start Date End Date Susie White MD [address] [place] [address] PCP - General Internal Medicine 03/02/12 documented as of this encounter"
--- OUTSIDE RECORDS SUMMARY | 2024-02-18 11:35 | External Medical Summary | Summary of Care ---
Author Name Unknown Organization [facility] Address [address] [place] [address] Phone [phone] Care Team Providers Care Ortho Nurse Name Role Phone Susie White MD Primary Care Provider [phone] Encounter Details Date Type Department Care Team (Late st Contact Info) Description 11/27/2023 Orders Only Hematology/Oncology, [facility] [address] [facility] [place] [address] Clarence Patel MD [address] [place] [address] Allergies No known active allergiesdocumented as of [...] Infante MD PI CRC Name: Molly Chowdhury [facility] Contact PI or POLE SHAVER regarding any serious medical event, if new Rx given, ER visit, hospitalization, or billing question Diagnosis changed due to Research Module. Go to Snapshot for study details. Encounter for examination fo r normal comparison and control in clinical research program 05/16/2012 06/03/2016 Overview: Diagnosis description adjusted per Research Compliance Office. RESEARCH HEM/ONC FOLLOW UP CARE Renamed per the [facility] for Medicare and Medicaid billing requirements to include Clinical Trial.gov number. Trial participant as of: Project #: [id number] PI Name: Cory Infante MD PI CRC Name: Molly Chowdhury [facility] Contact PI or POLE SHAVER regarding any serious medical event, if new [...] 1:30 PM EDT Pharmacy Pharmacy Hematology Oncology [place] [address] [place] [address] [place], [place] [facility] Hem/Onc [facility] [place] [address] 12/06/2023 8:15 AM EDT Imaging Radiology [facility] 1st [facility], [place] [address] [facility] [place] [address] 12/15/2023 2:45 PM EDT Office Visit Hematology/Oncology [facility] [place] [address] [facility] [place] [phone] Cory Infante MD [address] [facility] [place] [address] 12/20/2023 10:15 AM EDT Immunization/Inject ion Hematology/Oncology Treatment, [place] [facility] [phone] Nurse, Med [address] [facility] [place] [address] 01/17/2024 10:15 AM EDT Immunization/Inject ion Hematology/Oncology Treatment, [place] [address] [facility] [place] [phone] Nurse, Med [address] [facility] [place] [address] 05/25/2024 10:40 AM EDT Office Visit General Internal Medicine [facility] [address] [facility] [place] [address] Susie White MD [address] [facility] [place] [address] 07/24/2024 11:00 AM EST Office Visit Dermatology[address] [place] [address] Donita Cornejo PA-C [address] [place] [address] [place] [address] Scheduled Procedures Name Priority Associated Diagnoses Date/Ti me COLONOSCOPY FLEXIBLE PROXIMA L DIAGNOSTIC Recall History of colonic polyps Health Maintenance Due Date Last Done Comments Hepatitis B (1 of 3 - 19+ 3-dose series) 1991 GFR 05/22/2024 11/21/2023, 07/08, 04/27/2023, Additional history exists Depression Screening 11/16/2024 11/17/2023 Albumin/Creatinine Ratio 11/20/2024 024, 10/28/2022, 10/12/2021 CKD HGB USE SMARTSET 35153 11/20/202411/20, 11/21/2023, 07/18/2023, Additional history exists CKD PHOS USE SMARTSET 33913 11/20/202411/06, 12/01/2022, 10/12/2021, Additional history exists Pneumococcal [...] this encounter Medical Devices Implanted Type Area [employer] Device Identifier Shelf Expiration Date Model / Serial / Lot Implant Hi Prof Gel 750cc - [id number] [place] [facility] [place] Breast MENTOR DARVIN 11/30/2013 350-7504BC / [id number] / [id number] Implant Hi Prof Gel 750cc - [id number] Implanted:Qty: 1 [place] 07[place]02[place]2013 [place] [facility] [place]: Breast MENTOR DARVIN 04/01/2014 350-7504BC / [id number] / [id number] documented as of this encounter Advance Directives [...] Directives occurred with: Not Discussed Care Teams Ortho Nurse Relationship Specialty Start Date End Date Susie White MD 200 [place] [address] PCP - General Internal Medicine 03/02/12 documented as of this encounter
--- OUTSIDE RECORDS SUMMARY | 2024-02-18 11:35 | External Medical Summary | Summary of Care ---
Author Name Unknown Organization [facility] Address [address] [place] [address] Phone [phone] Care Team Providers Care Heat And Frost Insulator Name Role Phone Susie White MD Primary Care Provider [phone] Reason for Visit * Reason Onset Date Comments Precert Future 11/15/2023 Encounter Details Date Type Department Care Team (Late st Contact Info) Description 11/15/2023 Telephone Hematology/Oncology Treatment, [place] [address] [place] [address] Clarence Patel MD [address] [place], [place] [phone] Precert Future Allergies No known active allergiesdocumented [...] Name: Molly Chowdhury CRC Contact PI or LASTING MACHINE OPERATOR regarding any serious medical event, [...] Name: Molly Chowdhury CRC Contact PI or LASTING MACHINE OPERATOR regarding any serious medical event, [...] 11/25/2023 1:30 PM EDT Nurse Only Hematology/Oncology [facility] [address] [place] [phone] Gisele, Nurse Hem Onc [place] [address] [place] [address] 11/25/2023 1:30 PM EDT Pharmacy Pharmacy Hematology Oncology [place] [address] [place] [address] [facility], [facility] Hem/Onc [address] [place] [address] 12/06/2023 8:15 AM EDT Imaging Radiology [facility] 1st [facility] 132 [facility] [place] [address] 12/15/2023 2:45 PM EDT Office Visit Hematology/Oncology [facility] 200 [facility] [place] [phone] Cory Infante MD [address] [facility] [place] [address] 12/20/2023 10:15 AM EDT Immunization/Inject ion Hematology/Oncology Treatment, [address] [place] [phone] Nurse, Med 4 200 [facility] [place] [address] 01/17/2024 10:15 AM EDT Immunization/Inject ion Hematology/Oncology Treatment, [place] [facility] [phone] Nurse, Med 4 200 [facility] [place] [address] 05/25/2024 10:40 AM EDT Office Visit General Internal Medicine [facility] [address] [facility] [place] [address] Susie White MD [address] [facility] [place] [address] 07/24/2024 11:00 AM EST Office Visit Dermatology[address] [address] Donita Cornejo PA-C [address] [place] [address] [place] [address] Scheduled Procedures Name Priority Associated Diagnoses Date/Ti me COLONOSCOPY FLEXIBLE PROXIMA L DIAGNOSTIC Recall History of colonic polyps Health Maintenance Due Date Last Done Comments Hepatitis B (1 of 3 - 19+ 3-dose series) 1991 GFR 05/22/2024 11/21/2023, 07/08, 04/27/2023, Additional history exists Depression Screening 11/16/2024 11/17/2023 Albumin/Creatinine Ratio 11/20/2024 024, 10/28/2022, 10/12/2021 CKD HGB USE SMARTSET 93231 11/20/202411/20, 11/21/2023, 07/18/2023, Additional history exists CKD PHOS USE SMARTSET 25408 11/20/202411/06, 12/01/2022, 10/12/2021, Additional history exists Pneumococcal [...] this encounter Medical Devices Implanted Type Area Firearms Model Maker Device Identifier Shelf Expiration Date Model / Serial / Lot Implant Hi Prof Gel 750cc - [id number] Implanted:Qty: 1 on 07/02/2013 at [place] [facility] [place] Right: Breast MENTOR DARVIN 11/30/2013 350-7504BC / [id number] / [id number] Implant Hi Prof Gel 750cc - [id number] Implanted:Qty: 1 on 07/02/2013 at [facility] Left: Breast MENTOR DARVIN 04/01/2014 350-7504BC / [id number] / [id number] documented as of this encounter Results * HEMOGLOBIN A1C (11/21/2023 7:36 AM EDT) Pathologist [facility] Hemoglobin A1C 5.1 4.0 - 5.6 % 11/21/2023 7:12 PM EDT LABORATORY [facility] Comment:The use of HbA1c to monitor glycemic status is based on normal hemoglobin and HbA composition. This test should not be used in patients with abnormal hemoglobin that affects the half life of the red blood cell or the in vivo glycation rates. Estimated Average Glucose 100 <126 mg/dL 11/21/2023 7:12 PM EDT LABORATORY [facility] Blood Venous blood specimen / Unknown Venipuncture / Unknown 11/21/2023 7:36 AM EDT 11/21/2023 7:37 AM EDT Clarence Patel MD LAB BLOOD ORDERA BLES LABORATORY [facility] [address] [place] [address] * (ABNORMAL) COMPREHENSIVE METABOLIC PANEL (11/21/2023 7:36 AM EDT) BUN 13 6 - 20 mg/dL 11/21/2023 7:43 PM EDT LAB[facility]ATORY [facility] Creatinine 1.1(H) 0.5 - 1.0 mg/dL 11/21/2023 7:43 PM EDT LAB[facility]ATORY [facility] Estimated Glomerular Filtration Rate 60 >=60 mL/min 11/21/2023 7:43 PM EDT LABORATORY [facility] Comment:eGFR is calculated b ased on the CKD-EPI 2021 equation Sodium 139 135 - 146 mmol/L [...] Patel MD LAB BLOOD ORDERA BLES LABORATORY [facility] [address] [place] [address] * HEPATITIS B CORE ANTIBODIES IGG AND IGM (11/21/2023 7:36 AM EDT) Hepatitis B Core Antibodies IgG and IgM Negative Negative 11/21/2023 8:09 PM EDT LABORATORY [facility] Blood Venous blood specimen / Unknown Venipuncture / Unknown 11/21/2023 7:36 AM EDT 11/21/2023 7:37 AM EDT Clarence Patel MD LAB BLOOD ORDERA BLES Performing Organization Address [facility] Co de Phone Number LABORATORY [facility] [address] [place] [address] * HEPATITIS B SURFACE ANTIGEN (11/21/2023 7:36 AM EDT) Hepatitis B Surface Antigen Negative Negative 11/21/2023 8:09 PM EDT LABORATORY [facility] Blood Venous blood specimen / Unknown Venipuncture / Unknown 11/21/2023 7:36 AM EDT 11/21/2023 7:37 AM EDT Clarence Patel MD LAB BLOOD ORDERA BLES Performing Organization Address [facility] de Phone Number LABORATORY [facility] [address] [place] [address] * HEPATITIS B SURFACE ANTIBODY (11/21/2023 7:36 AM EDT) Pathologist [facility] Hepatitis B Surface Antibody, Quantitative <3.5 mIU/mL 11/21/2023 8:09 PM EDT LABORATORY [facility] Hepatitis B Surface Antibody, Qualitative Negative 11/21/2023 8:09 PM EDT LAB[facility]ATORY [facility] Hepatitis B Surface Antibody, Interpretation NOT immune to Hepatitis B Virus 11/21/2023 8:09 PM EDT LABORATORY [facility] Comment: POSITIVE: >=11.5 mIU/mL INDETERMINATE: 8.5-<11.5 mIU/mL NEGATIVE: <8.5 mIU/mL Blood Venous blood specimen / Unknown Venipuncture / Unknown 11/21/2023 7:36 AM EDT 11/21/2023 7:37 AM EDT Clarence Patel MD LAB BLOOD ORDERA BLES Performing Organization Address [facility]/ZIP Co de Phone Number LABORATORY [facility] [address] [place] [address] documented in this encounter Visit Diagnoses Diagnosis [...] Directives occurred with: Not Discussed Care Teams Heat And Frost Insulator Relationship Specialty Start Date End Date Susie White MD [address] [place] [address] PCP - General Internal Medicine 03/02/12 documented as of this encounter
--- OUTSIDE RECORDS SUMMARY | 2024-02-18 11:36 | External Medical Summary ---
Author Name Unknown Address Unknown Organization K01:LABORATORY C - [address] [place] [address] Laboratory Report Ordering Provider Test Date Status DON MOSER 11/21/2023 07:36:45 Final Observation Date Value Abnormality Reference (Units ) Status Hep C Ab 11/21/2023 07:36:45 Negative Negative Final Further HCV quantitative flora ting not performed per protocol. Performing Location LABORATORY [facility] - [address] [place] [address]
--- OUTSIDE RECORDS SUMMARY | 2024-02-18 11:36 | External Medical Summary ---
Author Name Unknown Address Unknown Organization K01:LABORATORY [facility] - [address] [facility] [place] [address] Laboratory Report Ordering Provider Test Date Status LEBRON MEDINA 11/21/2023 07:36:45 Final Observation Date Value Abnormality Reference (Units ) Status BUN 11/21/2023 07:36:45 13 6-20 (mg/dL) Final Creatinine 11/21/2023 07:36:45 1.1 Above high normal 0.5-1.0 (mg/dL) Final Glomerular filtration rate/1.73 sq M.predicted [Volume Rate/Area] in Serum, Plasma or Blood by Creatinine-based formula (CKD-EPI) 11/21/2023 07:36:45 60 >=60 (mL/min) Final eGFR is calculated based on the CKD-EPI 2020 equation Sodium 11/21/2023 07:36:45 139 135-146 (m mol/L) Final Potassium 11/21/2023 07:36:45 4.5 3.5-5.1 (m mol/L) Final Cl 11/21/2023 07:36:45 104 98-107 (mm ol/L) Final CO2 11/21/2023 07:36:45 26 22-32 (mmo l/L) Final Anion gap 11/21/2023 07:36:45 9 7-15 (mmol /L) Final Glucose 11/21/2023 07:36:45 76 70-120 (mg /dL) Final Albumin 11/21/2023 07:36:45 4.2 3.8-5.0 (g /dL) Final AST (Aspartate aminotransferase) 11/21/2023 07:36:45 27 10-35 (U/L) Final Alk Phos 11/21/2023 07:36:45 57 35-130 (U/ L) Final Bilirubin, Total 11/21/2023 07:36:45 0.3 <=1 .2 (mg/dL) Final Calcium 11/21/2023 07:36:45 9.9 8.4-10.2 ( mg/dL) Final Protein 11/21/2023 07:36:45 6.4 6.0-8.3 (g /dL) Final ALT (Alanine aminotransferase) 11/21/2023 07:36:45 28 10-35 (U/L) Final Performing Location LABORATORY [facility] - [facility] [address] [facility] [address]
--- OUTSIDE RECORDS SUMMARY | 2024-02-18 11:36 | External Medical Summary ---
Author Name Unknown Address Unknown Organization K01:LABORATORY [facility] - [facility] [address] [facility] [address] [facility] [place] [address] Laboratory Report Ordering Provider Test Date Status LEBRON MEDINA 11/21/2023 07:36:45 Final Observation Date Value Abnormality Reference (Units ) Status WBC, Total 11/21/2023 07:36:45 3.60 Below low normal 4.00-10.80 (K/uL) Final RBC 11/21/2023 07:36:45 4.15 3.85-5.15 (M/uL) Final Hemoglobin 11/21/2023 07:36:45 13.1 12.0-15.3 (g/dL) Final HCT 11/21/2023 07:36:45 40.6 36.0-45.2 (%) Final MCV 11/21/2023 07:36:45 97.8 81.5-97.5 (fL) Final MCH 11/21/2023 07:36:45 31.6 27.0-34.0 (pg) Final MCHC 11/21/2023 07:36:45 32.3 32.0-36.0 (g/dL) Final RDW 11/21/2023 07:36:45 13.3 11.5-15.5 (%) Final Platelets 11/21/2023 07:36:45 246 140-400 (K/uL) Final MPV 11/21/2023 07:36:45 10.5 6.6-11.1 (fL) Final Nucleated erythrocytes/100 leukocytes [Ratio] in Blood by Automated count 11/21/2023 07:36:45 0 <=0 (/100 WBCs) Final Performing Location LABORATORY [facility] - [address] [facility] [place] [address]
--- OUTSIDE RECORDS SUMMARY | 2024-02-18 11:36 | External Medical Summary | Summary of Care ---
Author Name Unknown Organization [facility] Address [address] [place] [address] Phone [phone] Care Team Providers Care Cross Tie Cutter Name Role Phone Susie White MD Primary Care Provider Reason for Visit * Reason Comments Medication Management Encounter Details Date Type Department Care Team (Late st Contact Info) Description 11/15/2023 1:00 PM EDT Pharmacy Pharmacy Hematology Oncology [facility] [address] [place] [address] [facility] [place], [facility] Hem/Onc [address] [place] [address] Malignant neoplasm of overlapping sites of both breasts in female, estrogen receptor positive (HCC)* Allergies No known active allergiesdocumented as of this encounter (statuses as of 11/17/2023) Medications Medication Sig Dispensed Refills Start Date [...] at night if needed 0 07/18/2023 Active Amoxicillin-Pot Clavulanate 875-125 MG Oral Tablet (Augmentin) Take 1 Tablet by mouth in the morning and 1 Tablet before bedtime. 0 09/05/2023 Active oxyCODONE-Acetaminophen 5-325 MG Oral Tablet (Percocet) Take 1 Tablet by mouth every 4 hours as needed for Pain, Moderate. 0 09/02/2023 Active Fulvestrant 250 MG/5ML Intramuscular Solution Prefilled Syringe (Faslodex) Inject into a large muscle every 4 weeks. 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),Liver lesion,Intra-abdominal lymphadenopathy TAKE 1 TABLET IN THE MORNING 90 Tablet 3 11/15/2023 Active documented as of this encounter (statuses as of 11/17/2023) Active Problems Problem Noted Date Diagnosed Date [...] as of this encounter (statuses as of 11/17/2023) Resolved Problems Problem Noted Date Diagnosed Date [...] Name: Molly Chowdhury CRC Contact PI or SCREW REMOVER regarding any serious medical event, if new [...] Infante MD PI CRC Name: Molly Chowdhury [facility] Contact PI or SCREW REMOVER regarding any serious medical event, if new Rx given, ER visit, hospitalization, or billing question Diagnosis changed due to Research Module. Go to Snapshot for study details. documented as of this encounter (statuses as of 11/17/2023) Immunizations Name Administration Dates Next Due COVID-19 [...] as of this encounter Progress Notes * Ryley Jacqueline M, [facility] - 11/17/2023 8:51 AM EDT MEDICATION THERAPY MANAGEMENT CAPIVASERTIB INITIAL INTAKE NOTE Shante Cordoba [phone] Patient Phone Numbers Communication: Chart review Treatment: Medication: Capivasertib (Truqap) Indication/Staging/Diagnosis Code: Metastatic Breast Cancer, ER+, WA+, HER2-, PIK3CA mutation C50.811, C50.812, Z17.0 Dose: 400 mg twice daily (~12 hours apart) for 4 consecutive days, followed by 3 days off (administer capivasertib on days 1 to 4 of each week) Administration: +/- food Start Date: TBD Primary General Merchandise Salesperson/Oncologist: Dr. Patel [id number] Study Additional Therapy: Fulvestrant Supportive Care Meds: Cetirizine Ondansetron Loperamide Urea Cream Cycle Dates C1 TBD C2 TBD Review of therapy: Line of therapy: 5th Previous therapy: -S/P bilateral mastectomies followed by immediate reconstruction (April,) -Dose dense AC followed by weekly paclitaxel between 05/22/2012-11/01/2012 Adjuvant radiation treatment completed in January,. - had Zoladex -S/P bilateral oophorectomy in January, (no hysterectomy) -tamoxifen between January [id number] 2020. - Letrozole and ribociclib between 10/2019 -09/2023 (discontinued because of disease progression mainly in the abdomen Reviewed dosage prescribed for appropriateness (based on indication, hepatic function,renal function, etc): no changes Are appropriate supportive care medications prescribed? No, supportive care medications (noted above) to be sent via Loop plan Are appropriate prophylactic medications prescribed? No, to be sent via Loop plan Have baseline labs/tests been obtained? No, need updated hemoglobin A1c and fasting plasma glucose - orders placed Has hepatitis B screening been completed? Yes Potential drug-drug drug-herbal, drug-food, drug-disease interactions: Yes Cetirizine and Percocet/Trazodone: Category C and D Drug Interactions: AIR CONDITIONING SHEET METAL INSTALLER depression may be enhanced Recommendation: Avoid concomitant use of oxycodone and benzodiazepines or other AIR CONDITIONING SHEET METAL INSTALLER depressants when possible. These agents should only be combined if alternative treatment options are inadequate. Ifcombined, limit the dosages and duration of each drug to the minimum possible while achieving the desired clinical effect. The extended release oxycodone starting dose should be reduced 50% to 67% when initiated in patients already receiving AIR CONDITIONING SHEET METAL INSTALLER depressants. Warn patients and caregivers about the risk of slowed or difficult breathing and/or sedation and monitor patients closely for evidence of excessive AIR CONDITIONING SHEET METAL INSTALLER depression (ie, respiratory depression, hypotension, sedation, or coma). Action: As above The Hematology/Oncology Oral Chemotherapy Clinic will assess medication compliance at each patient encounter Assessment and Plan: Updated hemoglobin A1c and fasting plasma glucose needed - orders placed Yes/no Date Action Taken Loop plan entered? Yes 11/17/23 Consent completed? No Intro/med rec completed? Precert completed? Test claim completed? Financial assistance needed? Physician signature? Rx released? Education completed? Follow up: 2 days Jacqueline Hedrick, PharmD, BCOP Ambulatory Clinical Pharmacist | Oral Chemotherapy Clinic [facility] 11/17/2023, 9:34 AM Monitoring Parameters: Estimated CrCl Serum creatinine: 1.3 mg/dL (H) 07/18/23 1134 Estimated creatinine clearance: 52.2 mL/min (A) Hepatitis panel Complete 12/01/22 Not [...] Pertinent Labs: Latest Reference Range & Units 07/18/23 11:34 WBC 4.00 - 10.80 K/uL 4.52 RBC 3.85 - 5.15 M/uL 3.82 HGB 12.0 - 15.3 g/dL 12.4 HCT 36.0 - 45.2 % 37.9 MCV 81.5 - 97.5 fL 99.2 MCH 27.0 - 34.0 pg 32.5 MCHC 32.0 - 36.0 g/dL 32.7 RDW 11.5 - 15.5 % 13.6 PLT 140 - 400 K/uL 289 MPV 6.6 - 11.1 fL 9.8 CBC WITH WBC DIFFERENTIAL Rpt Absolute Neutrophils 1.80 - 7.70 K/uL 2.51 Absolute Lymphocytes 1.00 - 4.80 K/ul 1.39 Rpt: View report in Results Review for more information Latest Reference Range & Units 07/18/23 11:34 Albumin 3.8 - 5.0 g/dL 4.2 AST 10 - 35 U/L 19 ALT 10 - 35 U/L 19 Alkaline Phosphatase 35 - 130 U/L 50 Bilirubin, Total <=1.2 mg/dL 0.3 Latest Reference Range & Units 12/01/22 07:49 Hepatitis B Surface Antibody, Quantitative mIU/mL <3.5 HEPATITIS B SURFACE ANTIBODY Rpt Hepatitis B Surface Antibody, Interpretation NOT immune to Hepatitis B Virus Hepatitis B Surface Antibody, Qualitative Negative Rpt: View report in Results Review for more information Time Spent on Encounter: > 31 minutes Encounter Group: Oncology Encounter Interventions Item Category: Oral Chemotherapy Other: capivasertib Problem/Rationale: Loop Plan Review: Initial Plan/upload Pharmacist Intervention(s): Care coordination, Drug Interaction Screen, Lab monitoring, Orders labs, Referral review, and Referral to [facility] Magnitude of Intervention: Monitoring with direction (Level 1) documented in this encounter Plan of Treatment Upcoming Encounters Date Type Department Care Team (Late st Contact Info) Description 11/17/2023 11:40 AM EDT Office Visit General Internal Medicine [facility] [address] [place] [address] Susie White MD [address] [facility] [place] [address] 11/21/2023 1:30 PM EDT Pharmacy Pharmacy Hematology Oncology [place] [address] [place] [address] [facility], [facility] Hem/Onc [address] [place] [address] 11/22/2023 10:15 AM EDT Immunization/Inject ion Hematology/Oncology Treatment, [place] [address] [place] [id number] Nurse, Med 4 [address] [place] [address] 11/25/2023 1:30 PM EDT Nurse Only Hematology/Oncology [facility] [place] [address] [place] [phone] Park, Nurse Hem Onc [address] [place] [address] 12/06/2023 8:15 AM EDT Imaging Radiology [facility] 1st [facility], [place] [address] [facility] [place] [address] 12/15/2023 2:45 PM EDT Office Visit Hematology/Oncology [facility] [place] [address] [place] [phone] Cory Infante MD [address] [place] [address] 07/24/2024 11:00 AM EST Office Visit [address] [address] Donita Cornejo, PA-C [address] [place] [address] [place] [address] Scheduled Procedures Name Priority Associated Diagnoses Date/Ti me COLONOSCOPY FLEXIBLE PROXIMA L DIAGNOSTIC Recall History of colonic polyps Health Maintenance Due Date Last Done Comments HIV Screening 1987 Hepatitis C Screening 1990 Hepatitis B (1 of 3 - 19+ 3-dose series) 1991 Albumin/Creatinine Ratio 10/29/2023 10/28/2022, 03/0 02/2022 Depression Screening 10/29/2023 10/28/2022 DTaP,Tdap,and Td Vaccines (2 - Td or Tdap) 11/03/2023 11/02/2013 CKD PHOS USE SMARTSET 53175 12/02/2023 04/2 01/2023, 10/12/2021, 02/07/2020 GFR 01/17/2024 07/18/2023, 04/09, 02/04/2023, Additional history exists CKD HGB USE SMARTSET 50849 07/18/202407/18, 07/18/2023, 04/27/2023, Additional history exists Diabetes [...] this encounter Medical Devices Implanted Type Area Veneer Sawyer Device Identifier Shelf Expiration Date Model / Serial / Lot Implant Hi Prof Gel 750cc - [id number] Implanted:Qty: 1 on 07/02/2013 at [place] [facility] [place] Right: Breast MENTOR DARVIN 11/30/2013 [id number] / [id number] / [id number] Implant Hi Prof Gel 750cc - [id number] Implanted:Qty: 1 on 07/02/[address] [facility] Left: Breast MENTOR DARVIN 04/01/2014 [id number] / [id number] / [id number] documented as of this encounter Visit Diagnoses [...] Directives occurred with: Not Discussed Care Teams Cross Tie Cutter Relationship Specialty Start Date End Date Susie White MD [address] [place] [address] PCP - General Internal Medicine 03/02/12 documented as of this encounter"
--- OUTSIDE RECORDS SUMMARY | 2024-02-18 11:36 | External Medical Summary ---
Author Name Unknown Address Unknown Organization K01:LABORATORY [place] [address] [place] [address] Laboratory Report Ordering Provider Test Date Status LEBRON MEDINA 11/21/2023 07:36:45 Final Observation Date Value Abnormality Reference (Units) Status Hepatitis B virus surface Ab [Units/volume] in Serum or Plasma by Immunoassay 11/21/2023 07:36:45 <3.5 (mIU/mL) Final Hepatitis B virus surface Ab [Presence] in Serum by Immunoassay 11/21/2023 07:36:45 Negative Final HEPATITIS B SURFACE ANTIBODY, INTERPRETATION 11/21/2023 07:36:45 NOT immune to Hepatitis B Virus Final POSITIVE: >=11.5 mIU/mL
INDETERMINATE: 8.5-<11.5 mIU/mL
NEGATIVE: <8.5 mIU/mL Performing Location LABORATORY [facility] [place] [address]
--- OUTSIDE RECORDS SUMMARY | 2024-02-18 11:36 | External Medical Summary | Summary of Care ---
Author Name Unknown Organization [facility] Address [address] [place] [address] Phone [phone] Care Team Providers Care Produce Buyer Name Role Phone Susie White MD Primary Care Provider [phone] Reason for Visit * Reason Comments Medication Management Encounter Details Date Type Department Care Team (Late st Contact Info) Description 11/21/2023 1:30 PM EDT Pharmacy Pharmacy Hematology Oncology [facility] [address] [place] [address] [facility], [facility] Hem/Onc [address] [place] [address] Malignant neoplasm of overlapping sites of both breasts in female, estrogen receptor positive (HCC)* Allergies No known active allergiesdocumented as of this encounter (statuses as of 11/21/2023) Medications Medication Sig Dispensed Refills Start Date [...] as of this encounter (statuses as of 11/21/2023) Active Problems Problem Noted Date Diagnosed Date [...] as of this encounter (statuses as of 11/21/2023) Resolved Problems Problem Noted Date Diagnosed Date [...] Name: Molly Chowdhury CRC Contact PI or PLUG GROWER regarding any serious medical event, if new [...] Chowdhury [facility] Contact PI or PLUG GROWER regarding any serious medical event, if new Rx given, ER visit, hospitalization, or billing question Diagnosis changed due to Research Module. Go to Snapshot for study details. documented as of this encounter (statuses as of 11/21/2023) Immunizations Name Administration Dates Next Due COVID-19 [...] Notes * Johana Carrasquillo, Luz [place] - 11/21/2023 10:48 AM EDT MEDICATION THERAPY MANAGEMENT CAPIVASERTIB INITIAL INTAKE NOTE Shante Cordoba [phone] Patient Phone Numbers Communication: Chart review Treatment: Medication: Capivasertib (Truqap) Indication/Staging/Diagnosis Code: Metastatic Breast Cancer, ER+, DE+, HER2-, PIK3CA mutation C50.811, C50.812, Z17.0 Dose: 400 mg twice daily (~12 hours apart) for 4 consecutive days, followed by 3 days off (administer capivasertib on days 1 to 4 of each week) Administration: +/- food Start Date: TBD Primary Ibm Websphere Portal Developer/Oncologist: Dr. Patel [id number] Study Additional Therapy: Fulvestrant Supportive Care Meds: Cetirizine Ondansetron Loperamide Urea Cream Cycle Dates C1 TBD C2 TBD The Hematology/Oncology Oral Chemotherapy Clinic will assess medication compliance at each patient encounter Assessment and Plan: Updated hemoglobin A1c and fasting plasma glucose needed - orders placed Yes/no Date Action Taken [place] plan entered? Yes 11/17/23 Consent completed? No Intro/med rec completed? Precert completed? Pending Submitted 11/16 - TITIN Tech Test claim completed? Financial assistance needed? Physician signature? No Rx released? Education completed? Will follow up in 2 days to check on precert status and to check on physician approval and consent status [facility] will contact patient once med shipped/received to complete medication education Please refer to initial intake note for detailed review of regimen and patient- specific education points Johana Carrasquillo Hot Air Furnace Installer Repairer III [facility] 11/21/2023 10:51 AM documented in this encounter Plan of Treatment Upcoming Encounters Date Type Department Care Team (Late st Contact Info) Description 11/22/2023 10:15 AM EDT Immunization/Inject ion Hematology/Oncology Treatment, [place] [address] [place] [address] Nurse, Med [address] [facility] [place] [address] 11/23/2023 1:30 PM EDT Pharmacy Pharmacy Hematology Oncology [address] [address] [facility], [facility] Hem/Onc [facility] [place] [phone] 11/25/2023 1:30 PM EDT Nurse Only Hematology/Oncology [facility] [place] [address] [place] [phone] Park, Nurse Hem Onc [facility] [address] [facility] [place] [address] 12/06/2023 8:15 AM EDT Imaging Radiology [address], [place] [address] [facility] [place] [address] 12/15/2023 2:45 PM EDT Office Visit Hematology/Oncology [facility] [place] [address] [facility] [place] [phone] Cory Infante MD [address] [facility] [place] [address] 05/25/2024 10:40 AM EDT Office Visit General Internal Medicine [facility] [place] [address] [facility] [place] [address] Susie White MD 200 [facility] [place] [address] 07/24/2024 11:00 AM EST Office Visit [address] [address] Donita Cornejo PA-C [address] [place] [address] [place] [address] Scheduled Procedures Name Priority Associated Diagnoses Date/Ti me COLONOSCOPY FLEXIBLE PROXIMA L DIAGNOSTIC Recall History of colonic polyps Health Maintenance Due Date Last Done Comments HIV Screening 1987 Hepatitis C Screening 1990 Hepatitis B (1 of 3 - 19+ 3-dose series) 1991 Albumin/Creatinine Ratio 10/29/2023 10/28/2022, 03/0 02/2022 CKD PHOS USE SMARTSET 19571 12/02/2023 04/2 01/2023, 10/12/2021, 02/07/2020 GFR 01/17/2024 07/18/2023, 04/09, 02/04/2023, Additional history exists CKD HGB USE SMARTSET 80828 07/18/202407/18, 07/18/2023, 04/27/2023, Additional history exists Depression Screening 11/16/2024 11/17/2023 Diabetes Screening 07/18/2026 07/18/2023, 0 04/27/2023, 02/04/2023, Additional history exists Pneumococcal Vaccine: Pediatrics (0 to 5 Years) and At-Risk Patients (6 to 64 Years) (3 of 3 - PPSV23 or PCV20) 10/01/2026 10/01/2021, 05/26/2020 Lipid Panel 12/02/2027 12/01/2022, 0302/2022, 11/03/2020, Additional history exists COLONOSCOPY-EVERY 5 YRS AGES 18-100 05/09/2028 05/09/2023, 05/09/2023 DTaP,Tdap,and Td Vaccines (3 - Td or [...] this encounter Medical Devices Implanted Type Area Farm Planner Device Identifier Shelf Expiration Date Model / Serial / Lot Implant Hi Prof Gel 750cc - [id number] [place]planted:[place] 1 [place] 07[place]02[place]2013 [place] [facility] [place]: Breast MENTOR DARVIN 11/30/2013 [id number] / [id number] / [id number] Implant Hi Prof Gel 750cc - [id number] Implanted:Qty: 1 on 07/02/2013 [place] [facility] [place]: Breast MENTOR DARVIN 04/01/2014 [id number] / [id number] / [id number] documented as of this encounter Visit Diagnoses [...] Directives occurred with: Not Discussed Care Teams Produce Buyer Relationship Specialty Start Date End Date Susie White MD [address] [place] [address] PCP - General Internal Medicine 03/02/12 documented as of this encounter
--- OUTSIDE RECORDS SUMMARY | 2024-02-18 11:36 | External Medical Summary ---
Author Name Unknown Address Unknown Organization [id number]:LABORATORY [facility] [place] [address] [place] [address] Laboratory Report Ordering Provider Test Date Status DAVIAN VALERIO 11/21/2023 07:36:45 Final Observation Date Value Abnormality Reference (Units ) Status MYCODE SPECIMEN-SST 11/21/2023 07:36:45 Freezing of extracted DNA, whole blood and/or serum. Final Performing Location LABORATORY [facility] - [address] [place] [address]
--- OUTSIDE RECORDS SUMMARY | 2024-02-18 11:36 | External Medical Summary ---
Author Name Unknown Address Unknown Organization [id number]:LABORATORY [facility] - [address] [facility] [place] [address] Laboratory Report Ordering Provider Test Date Status GAIL MOSERALI 11/21/2023 07:36:45 Final Observation Date Value Abnormality Reference (Units ) Status Triglyceride 11/21/2023 07:36:45 82 <=174 ( mg/dL) Final Triglyceride Reference Range s (mg/dL):
<150 Acceptable
150-174 Borderline high
175-499 High
>=500 Very high Cholesterol 11/21/2023 07:36:45 200 Above high normal <200 (mg/dL) Final Total Cholesterol Reference Ranges (mg/dL):
<200 Desirable
200-239 Borderline high
>=240 High HDL 11/21/2023 07:36:45 72 >49 (mg/dL ) Final HDL Cholesterol Reference Ra nges (mg/dL):
>=60 High (Desirable)
<50 Low (Undesirable) For Females
<40 Low (Undesirable) For Males NON-HDL CHOLESTEROL 11/21/2023 07:36:45 128 <=159 (mg/dL) Final Non-HDL Cholesterol Referenc e Range (mg/dL):
<100 Target level for high risk ASCVD patient
<130 Optimal for general population
130-159 Near optimal for general population
160-189 Borderline High
190-219 High
>=220 Very High LDL, (calculated) 11/21/2023 07:36:45 112 <= 129 (mg/dL) Final LDL Cholesterol Reference Ra nges (mg/dL):
<70 Target level for high risk ASCVD patient
<100 Optimal for general population
100-129 Near optimal for general population
130-159 Borderline high
160-189 High
>=190 Very high Performing Location LABORATORY [facility] - [address] [facility] [address]
--- OUTSIDE RECORDS SUMMARY | 2024-02-18 11:36 | External Medical Summary ---
Author Name Unknown Address Unknown Organization K01:LABORATORY [facility] - [address] [place] [address] Laboratory Report Ordering Provider Test Date Status LEBRON MEDINA 11/21/2023 07:36:45 Final Observation Date Value Abnormality Reference (Units ) Status HbA1C 11/21/2023 07:36:45 5.1 4.0-5.6 (% ) Final The use of HbA1c to monitor glycemic status is based on normal hemoglobin and HbA composition. This test should not be used in patients with abnormal hemoglobin that affects the half life of the red blood cell or the in vivo glycation rates. Glucose, estimated average 11/21/2023 07:36:45 100 <126 (mg/dL) Final Performing Location LABORATORY C - [address] [place] [address]
--- OUTSIDE RECORDS SUMMARY | 2024-02-18 11:36 | External Medical Summary ---
Author Name Unknown Address Unknown Organization K01:LABORATORY [facility] - [address] [place] [address] Laboratory Report Ordering Provider Test Date Status DON MOSER 11/21/2023 07:36:45 Final Observation Date Value Abnormality Reference (Units ) Status Phosphate 11/21/2023 07:36:45 4.3 2.5-4.8 (m g/dL) Final Performing Location LABORATORY [facility] - [address] [place] [address]
--- OUTSIDE RECORDS SUMMARY | 2024-02-18 11:36 | External Medical Summary ---
Author Name Unknown Address Unknown Organization K01:LABORATORY [facility] - [facility] [address] [facility] [address] [facility] [address] Laboratory Report Ordering Provider Test Date Status DON MOSER 11/21/2023 07:36:45 Final Observation Date Value Abnormality Reference (Units ) Status HIV 1+2 Ab+HIV1 p24 Ag [Presence] in Serum or Plasma by Immunoassay 11/21/2023 07:36:45 Negative Negative Final Negative HIV-1/2 antigen and antibody screening tset results usually indicate the absence of HIV-1 and HIV-2 infection. However, such negative results do not rule-out acute HIV infection. If acute HIV-1 infection is highly suspected, it is recommended that a specimen be submitted for detection of HIV-1 RNA. Performing Location LABORATORY [facility] - [address] [place] [address]
--- OUTSIDE RECORDS SUMMARY | 2024-02-18 11:36 | External Medical Summary ---
Author Name Unknown Address Unknown Organization K01:[facility] [place] 100 [facility] [place] [address] Laboratory Report Ordering Provider Test Date Status LEBRON MEDINA 11/21/2023 07:36:45 Final Observation Date Value Abnormality Reference (Units ) Status SYNC LEUKOCYTES IN BLOOD BY AUTOMATED COUNT 11/21/2023 07:36:45 3.60 Below low normal 4.00-10.80 (K/uL) Final Segs 11/21/2023 07:36:45 48.0 40.0-75.0 (%) Final Lymphs % 11/21/2023 07:36:45 34.4 18.0-42.0 (%) Final Monos 11/21/2023 07:36:45 10.6 1.0-11.0 (%) Final Eosinophils 11/21/2023 07:36:45 5.3 0.0-6.0 (%) Final Basos 11/21/2023 07:36:45 1.4 0.0-2.0 (%) Final Immature Granulocyte, Percent 11/21/2023 07:36:45 0.3 0.0-2.0 (%) Final Absolute Segs 11/21/2023 07:36:45 1.73 Below low normal 1.80-7.70 (K/uL) Final Lymphs, absolute 11/21/2023 07:36:45 1.24 1.00-4.80 (K/ul) Final Monos, Abs 11/21/2023 07:36:45 0.38 0.00-1.10 (K/uL) Final Eos, Abs 11/21/2023 07:36:45 0.19 0.00-0.70 (K/uL) Final Basos, Abs 11/21/2023 07:36:45 0.05 0.00-0.20 (K/uL) Final Immature Granulocytes, Number 11/21/2023 07:36:45 0.01 0.00-0.20 (K/uL) Final Performing Location [facility] [place] [address]
--- OUTSIDE RECORDS SUMMARY | 2024-02-18 11:36 | External Medical Summary | Summary of Care ---
Author Name Unknown Organization [facility] Address [address] [place] [address] Phone [phone] Care Team Providers Care Dye House Helper Name Role Phone Susie White MD Primary Care Provider [phone] Reason for Visit * Reason Comments Outpatient Testing Encounter Details Date Type Department Care Team (Late st Contact Info) Description 11/21/2023 7:50 AM EDT Laboratory Laboratory, [place] [address] [place] [address] [place], Laboratory [address] [place] [address] [employer] Other*[id number]; Malignant neoplasm of overlapping sites of both breasts in female, estrogen receptor positive (HCC); Stage 3a chronic kidney disease (HCC); Encounter for HCV screening test for low risk patient; Screening for HIV without presence of risk factors; Encounter for long-term (current) use of medications; Lipid screening Allergies No known active allergiesdocumented [...] Infante MD PI CRC Name: Molly Chowdhury [facility] Contact PI or PUBLIC HEALTH EPIDEMIOLOGIST regarding any serious medical event, if new [...] Infante MD PI CRC Name: Molly Chowdhury [facility] Contact PI or PUBLIC HEALTH EPIDEMIOLOGIST regarding any serious medical event, if new [...] 1:30 PM EDT Pharmacy Pharmacy Hematology Oncology [facility] [place] [address] [place] [address] Gm, [facility] Clinic Hem/Onc [address] [place] [address] 11/22/2023 10:15 AM EDT Immunization/Inject ion Hematology/Oncology Treatment, [place] [address] [place] [phone] Nurse, Med 4 200 [facility] [place] [address] 11/25/2023 1:30 PM EDT Nurse Only Hematology/Oncology [facility] [place] [address] [place] [phone] [place], Nurse Hem Onc [facility] 200 [facility] [place] [address] 12/06/2023 8:15 AM EDT Imaging Radiology [facility] 1st [facility] [address] 12/15/2023 2:45 PM EDT Office Visit Hematology/Oncology [facility] [place] [address] [place] [phone] Cory Infante MD [address] [place] [address] 05/25/2024 10:40 AM EDT Office Visit General Internal Medicine [facility] [place] [address] [place] [address] Susie White MD [address] [place] [address] 07/24/2024 11:00 AM EST Office Visit Dermatology, [address] [address] Donita Cornejo PAAlly [address] [place] [address] [place] [address] Pending Results Name Type Priority Associated Diagnoses Date /Time MYCODE SUBSEQUENT ADULT Lab Routine MyCode Research Other*[id number] 11/21/2023 7:36 AM EDT HEPATITIS B SURFACE ANTIBODY Lab STAT Malignant neoplasm of overlapping sites of both breasts in female, estrogen receptor positive (HCC) 11/21/2023 7:36 AM EDT HEPATITIS B SURFACE ANTIGEN Lab STAT Malignant neoplasm of overlapping sites of both breasts in female, estrogen receptor positive (HCC) 11/21/2023 7:36 AM EDT HEPATITIS B CORE ANTIBODIES IGG AND IGM Lab STAT Malignant neoplasm of overlapping sites of both breasts in female, estrogen receptor positive (HCC) 11/21/2023 7:36 AM EDT CBC WITH WBC DIFFERENTIAL Lab STAT Malignant neoplasm of overlapping sites of both breasts in female, estrogen receptor positive (HCC) 11/21/2023 7:36 AM EDT COMPREHENSIVE METABOLIC PANEL Lab STAT Malignant neoplasm of overlapping sites of both breasts in female, estrogen receptor positive (HCC) 11/21/2023 7:36 AM EDT HEMOGLOBIN A1C Lab STAT Malignant neoplasm of overlapping sites of both breasts in female, estrogen receptor positive (HCC) 11/21/2023 7:36 AM EDT GLUCOSE, FASTING PLASMA Lab Routine Malignant neoplasm of overlapping sites of both breasts in female, estrogen receptor positive (HCC) 11/21/2023 7:36 AM EDT ALBUMIN / CREATININE RATIO, URINE Lab Routine Stage 3a chronic kidney disease (HCC) 11/21/2023 7:36 AM EDT PHOSPHORUS Lab Routine Stage 3a chronic kidney disease (HCC) 11/21/2023 7:36 AM EDT HEPATITIS C ANTIBODY SCREEN WITH PROGRESSION TO HEPATITIS C RNA QUANTITATIVE Lab Routine Encounter for HCV screening test for low risk patient 11/21/2023 7:36 AM EDT HIV ANTIGEN & ANTIBODY SCREEN W/ CONFIRMATION Lab Routine Screening for HIV without presence of risk factors 11/21/2023 7:36 AM EDT VITAMIN B12 Lab Routine Encounter for long-term (current) use of medications 11/21/2023 7:36 AM EDT LIPID PANEL WITH DIRECT LDL IF TG IS HIGH Lab Routine Lipid screening 11/21/2023 7:36 AM EDT MYCODE SST1 Lab Routine MyCode Research Other*[id number] 11/21/2023 7:36 AM EDT MYCODE SST2 Lab Routine [employer]Code Research Other*[id number] 11/21/2023 7:36 AM EDT CBC Lab STAT Malignant neoplasm of overlapping sites of both breasts in female, estrogen receptor positive (HCC) 11/21/2023 7:36 AM EDT DIFFERENTIAL, AUTOMATED Lab STAT Malignant neoplasm of overlapping sites of both breasts in female, estrogen receptor positive (HCC) 11/21/2023 7:36 AM EDT HEPATITIS C ANTIBODY Lab Routine Encounter for HCV screening test for low risk patient 11/21/2023 7:36 AM EDT HEPATITIS C RNA ADD ON Lab Routine Encounter for HCV screening test for low risk patient 11/21/2023 7:36 AM EDT Scheduled Procedures Name Priority Associated Diagnoses Date/Ti me COLONOSCOPY FLEXIBLE PROXIMA L DIAGNOSTIC Recall History of colonic polyps Health Maintenance Due Date Last Done Comments HIV Screening 1987 Hepatitis C Screening 1990 Hepatitis B (1 of 3 - 19+ 3-dose series) 1991 Albumin/Creatinine Ratio 10/29/2023 10/28/2022, 03/0 02/2022 CKD PHOS USE SMARTSET 35572 12/02/2023 04/2 01/2023, 10/12/2021, 02/07/2020 GFR 01/17/2024 07/18/2023, 04/09, 02/04/2023, Additional history exists CKD HGB USE SMARTSET 73145 07/18/202407/18, 07/18/2023, 04/27/2023, Additional history exists Depression [...] this encounter Medical Devices Implanted Type Area Display Designer Device Identifier Shelf Expiration Date Model / Serial / Lot Implant Hi Prof Gel 750cc - [id number] Implanted:Qty: 1 on 07/02/2013 [place] [facility] [place]: Breast MENTOR DARVIN 11/30/2013 350-7504BC / [id number] / [id number] Implant Hi Prof Gel 750cc - [id number] Implanted:Qty: 1 on 07/02/2013 at [place] [facility] [place] Left: Breast MENTOR DARVIN 04/01/2014 350-7504BC / [id number] / [id number] documented as of this encounter Visit Diagnoses Diagnosis MyCode Research Other*[id number] Malignant neoplasm of overlapping sites of both breasts in female, estrogen receptor positive (HCC) Stage 3a chronic kidney disease (HCC) Encounter for HCV screening test for low risk patient Screening for HIV without presence of risk factors Special screening examination for other specified viral diseases Encounter for long-term (current) use of medications Encounter for long-term (current) use of other medications Lipid screening Screening for lipoid disorders documented [...] Directives occurred with: Not Discussed Care Teams Dye House Helper Relationship Specialty Start Date End Date Susie White MD [address] [place] [address] PCP - General Internal Medicine 03/02/12 documented as of this encounter
--- OUTSIDE RECORDS SUMMARY | 2024-02-18 11:36 | External Medical Summary | Summary of Care ---
Author Name Unknown Organization [facility] Address [address] [facility] [address] Phone [phone] Care Team Providers Care Banquet Waiter/Waitress Name Role Phone Susie White MD Primary Care Provider [phone] Reason for Visit * Reason Onset Date Comments Precert Pending 11/16/2023 Ashley Encounter Details Date Type Department Care Team (Late st Contact Info) Description 11/16/2023 Telephone Hematology/Oncology [place] [address] [facility] [place] [phone] Clarence Patel MD 200 [facility] [address] Precert Pending (Ashley) Allergies No known active [...] Name: Molly Chowdhury CRC Contact PI or SOUND TRUCK OPERATOR regarding any serious medical event, if [...] Name: Molly Chowdhury CRC Contact PI or SOUND TRUCK OPERATOR regarding any serious medical event, if [...] Munoz OSA - 11/17/2023 3:19 PM EDT [facility] Authorization Submission Submission Information: Medication: Capivasertib 200 mg Tabs (Truqap) Portal used: Over phone Insurance: [employer] Authorization #/Elliott: [id number] Thank you, Ashley Munoz Medication French Instructor 11/17/2023, 3:20 PM * Telephone Encounter - [...] each week) Multidisciplinary Clinic note: Recommended in [facility] notes from 11/02/[address] Patel on 11/14/23 Physician: Dr. Patel Comments: N/A Concurrent Therapy: yes, fulvestrant Jacqueline Hedrick, ReerD, BCOP Ambulatory Clinical Pharmacist | Oral Chemotherapy Clinic [facility] 11/16/2023, 3:59 PM documented in this encounter Plan of Treatment Upcoming Encounters Date Type Department Care Team (Late st Contact Info) Description 11/21/2023 1:30 PM EDT Pharmacy [facility] [place] [address] [place] [address] [facility] [place] [facility] Hem/Onc [address] [place] [address] 11/22/2023 10:15 AM EDT Immunization/Inject ion Hematology/Oncology Treatment, [place] [address] [place] [phone] Nurse, Med [address] [facility] [place] [address] 11/25/2023 1:30 PM EDT Nurse Only Hematology/Oncology [facility] [place] [address] [place] [phone] [place], Nurse Hem Onc [facility] [address] [place] [address] 12/06/2023 8:15 AM EDT Imaging Radiology [facility] [address] [facility], [place] [facility] [id number] 12/15/2023 2:45 PM EDT Office Visit Hematology/Oncology [facility] [place] [address] [place] [phone] Cory Infante MD [address] [place] [address] 05/25/2024 10:40 AM EDT Office Visit General Internal Medicine [facility] [place] [address] [place] [address] Susie White MD [address] [place] [address] 07/24/2024 11:00 AM EST Office Visit Dermatology[address] [address] Donita Cornejo PA-C [address] [place] [address] [place] [address] Scheduled Procedures Name Priority Associated Diagnoses Date/Ti me COLONOSCOPY FLEXIBLE PROXIMA L DIAGNOSTIC Recall History of colonic polyps Health Maintenance Due Date Last Done Comments HIV Screening 1987 Hepatitis C Screening 1990 Hepatitis B (1 of 3 - 19+ 3-dose series) 1991 Albumin/Creatinine Ratio 10/29/2023 10/28/2022, 03/0 02/2022 CKD PHOS USE SMARTSET 94548 12/02/2023 04/2 01/2023, 10/12/2021, 02/07/2020 GFR 01/17/2024 07/18/2023, 04/09, 02/04/2023, Additional history exists CKD HGB USE SMARTSET 94965 07/18/202407/18, 07/18/2023, 04/27/2023, Additional history exists Depression [...] this encounter Medical Devices Implanted Type Area Pantograph Operator Device Identifier Shelf Expiration Date Model / Serial / Lot Implant Hi Prof Gel 750cc - [id number] Implanted:Qty: 1 on 07/02/2013 [place] [facility] [place]: Breast MENTOR DARVIN 11/30/2013 350-7504BC / [id number] / [id number] Implant Hi Prof Gel 750cc - [id number] Implanted:Qty: 1 on 07/02/2013 [place] [facility] [place]: Breast MENTOR DARVIN 04/01/2014 350-7504BC / [id number] / [id number] documented as of this encounter Advance Directives [...] Directives occurred with: Not Discussed Care Teams Banquet Waiter/Waitress Relationship Specialty Start Date End Date Susie White MD [address] [place] [address] PCP - General Internal Medicine 03/02/12 documented as of this encounter"
--- OUTSIDE RECORDS SUMMARY | 2024-02-18 11:36 | External Medical Summary | Summary of Care ---
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) Malignant neoplasm of overlapping sites of both breasts in female, estrogen receptor positive (HCC) Procedures MD INJECTION, FULVESTRANT Cory Infante MD 200 [facility] [place] [address] Anc Hem/Onc [address] [phone] Referral ID Status Reason Start Date Expiration Date V isits Requested Visits Authorized [id number] Authorized 09/16/2023 03/13/2024 999 [id number] Encounter Details Date Type Department Care Team (Late st Contact Info) Description 11/22/2023 10:15 AM EDT Immunization/I njection Hematology/Oncology Treatment, [address] [phone] Nurse, Med 200 [facility] [place] [address] 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)*; 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); Malignant neoplasm of overlapping sites of both breasts in female, estrogen receptor positive (HCC) Allergies No known active allergiesdocumented as of this encounter (statuses as of 11/22/2023) Medications Medication Sig Dispensed Refills Start Date [...] as of this encounter (statuses as of 11/22/2023) Active Problems Problem Noted Date Diagnosed Date [...] as of this encounter (statuses as of 11/22/2023) Resolved Problems Problem Noted Date Diagnosed Date [...] B47 PI Name: Cory Infante MD PI [facility] Name: Molly Chowdhury [facility] Contact PI or DATABASE OPERATOR regarding any serious medical event, if [...] B47 PI Name: Cory Infante MD PI [facility] Name: Molly Chowdhury [facility] Contact PI or DATABASE OPERATOR regarding any serious medical event, if new Rx given, ER visit, hospitalization, or billing question Diagnosis changed due to Research Module. Go to Snapshot for study details. documented as of this encounter (statuses as of 11/22/2023) Immunizations Name Administration Dates Next Due COVID-19 [...] Nursing Notes * Ania Teague LPN - 11/22/2023 10:17 AM EDT Faslodex (Fulvestrant) 500mg administered IM into left and right dorsogluteal muscle per standing order. Patient tolerated injection and will return in 4 weeks. documented in this encounter Plan of Treatment Upcoming Encounters Date Type Department Care Team (Late st Contact Info) Description 11/23/2023 1:30 PM EDT Pharmacy Pharmacy Hematology Oncology [facility] [address] [place] [address] [facility] Clinic Hem/Onc [address] [place] [address] 11/25/2023 1:30 PM EDT Nurse Only Hematology/Oncology [facility]z [place] [address] [place] [phone] [place], Nurse Hem Onc [address] [place] [address] 12/06/2023 8:15 AM EDT Imaging Radiology [facility] 1st [facility], [place] 132 [facility] [place] [address] 12/15/2023 2:45 PM EDT Office Visit Hematology/Oncology [place] [place] [address] [place] [phone] Cory Infante MD 200 [facility] [place] [address] 12/20/2023 10:15 AM EDT Immunization/Inject ion Hematology/Oncology Treatment, [place] 200 [facility] [place] [phone] Nurse, Med 4 200 [facility] [place] [address] 01/17/2024 10:15 AM EDT Immunization/Inject ion Hematology/Oncology Treatment, [place] 200 [facility] [place] [phone] Nurse, Med 4 200 [facility] [place] [address] 05/25/2024 10:40 AM EDT Office Visit General Internal Medicine [facility] 200 [facility] [place] [address] Susie White MD 200 [facility] [place] [address] 07/24/2024 11:00 AM EST Office Visit [address] [phone] Donita Cornjeo PA-C [address] [place] [address] [place] [address] Scheduled Procedures Name Priority Associated Diagnoses Date/Ti me COLONOSCOPY FLEXIBLE PROXIMA L DIAGNOSTIC Recall History of colonic polyps Health Maintenance Due Date Last Done Comments Hepatitis B (1 of 3 - 19+ 3-dose series) 1991 GFR 05/22/2024 11/21/2023, 07/08, 04/27/2023, Additional history exists Depression Screening 11/16/2024 11/17/2023 Albumin/Creatinine Ratio 11/20/20242 024, 10/28/2022, 10/12/2021 CKD HGB USE SMARTSET 56325 11/20/202411/20, 11/21/2023, 07/18/2023, Additional history exists CKD PHOS USE SMARTSET 65102 11/20/202411/06, 12/01/2022, 10/12/2021, Additional history exists Pneumococcal [...] Completed 06/12/2023, 06/12/2023, 06/17/2022, Additional history exists HIV Screening Completed 11/21/2023 Hepatitis C Screening Completed 11/21/2023 , 11/21/2023, 11/21/2023 Cologuard Discontinued Fecal Occult Blood Test Discontinued GARDASIL-HPV IMMUNIZATION SERIES Aged Out No longer eligible based on patient's age to complete this topic MENINGOCOCCAL (MENACTRA/MENVEO) Aged Out No longer eligible based on patient's age to complete this topic Sigmoidoscopy Discontinued documented as of this encounter Medical Devices Implanted Type Area Artificial Flowers Supervisor Device Identifier Shelf Expiration Date Model / Serial / Lot Implant Hi Prof Gel 750cc - [id number] Implanted:Qty: 1 on 07/02/2013 at [place] [facility] [place] Right: Breast MENTOR DARVIN 11/30/2013 350-7504BC / [id number] / [id number] Implant Hi Prof Gel 750cc - [id number] Implanted:Qty: 1 on 07/02/2013 at [place] [facility] [place] Left: Breast MENTOR DARVIN 04/01/2014 [id number] / [id number] / [id number] documented as of this encounter Visit Diagnoses [...] 500 mg 500 mg, Intramuscular, ONCE, On Tue11/22/23 at 1115, For 1 dose Given 11/22/2023 10:09 AM EDT 500 mg Dorsogluteal Left documented [...] Directives occurred with: Not Discussed Care Teams Miller Head Assistant Wet Process Relationship Specialty Start Date End Date Susie White MD [address] [place] [address] PCP - General Internal Medicine 03/02/12 documented as of this encounter
--- OUTSIDE RECORDS SUMMARY | 2024-02-18 11:36 | External Medical Summary ---
Author Name Unknown Address Unknown Organization [id number]:LAB[facility]ATORY [facility] [place] [address] [place] [address] Laboratory Report Ordering Provider Test Date Status DON MOSER 11/21/2023 07:36:45 Final Observation Date Value Abnormality Reference (Units ) Status Vitamin B12 11/21/2023 07:36:45 >2000 Above high normal 232-1245 (pg/mL) Final Performing Location LABORATORY [facility] - [address] [place] [address]
--- OUTSIDE RECORDS SUMMARY | 2024-02-18 11:36 | External Medical Summary | Summary of Care ---
Author Name Unknown Organization [facility] Address [address] [place] [address] Phone [phone] Care Team Providers Care Manager Shift Name Role Phone Susie White MD Primary Care Provider [phone] Encounter Details Date Type Department Care Team (Late st Contact Info) Description 11/17/2023 Orders Only Hematology/Oncology, [facility] 400 [facility] [place] [address] Clarence Patel MD 200 [place] [address] Allergies No known active allergiesdocumented as of [...] Name: Molly Chowdhury CRC Contact PI or BONDACTOR MACHINE OPERATOR regarding any serious medical event, [...] Infante MD PI [facility] Name: Molly Chowdhury [facility] Contact PI or BONDACTOR MACHINE OPERATOR regarding any serious medical event, [...] EDT Office Visit General Internal Medicine [facility] G[place] [address] [place] [address] Susie White MD [address] [place] [address] 11/21/2023 1:30 PM EDT Pharmacy Pharmacy Hematology Oncology [facility] [address] [place] [address] G[facility], [facility] Hem/Onc [address] [place] [address] 11/22/2023 10:15 AM EDT Immunization/Inject ion Hematology/Oncology Treatment, [place] [address] [place] [phone] Nurse, Med 4 200 [facility] [place] [address] 11/25/2023 1:30 PM EDT Nurse Only Hematology/Oncology [facility] G[place]le [place] [address] [place] [phone] [place], Nurse Hem Onc [facility] [address] [address] 12/06/2023 8:15 AM EDT Imaging Radiology [facility] 1st [facility], [place] 132 [facility] [place] [phone] 12/15/2023 2:45 PM EDT Office Visit [facility]ology[facility] [place] [address] [phone] Cory Infante MD [address] [address] 07/24/2024 11:00 AM EST [facility] [address] [facility] [place] [phone] Donita Cornejo PA-C [address] [place] [address] [place] [address] Scheduled Procedures Name Priority Associated Diagnoses Date/Ti me COLONOSCOPY FLEXIBLE PROXIMA L DIAGNOSTIC Recall History of colonic polyps Health Maintenance Due Date Last Done Comments HIV Screening 1987 Hepatitis C Screening 1990 Hepatitis B (1 of 3 - 19+ 3-dose series) 1991 Albumin/Creatinine Ratio 10/29/2023 10/28/2022, 02/2022 Depression Screening 10/29/2023 10/28/2022 DTaP,Tdap,and Td Vaccines (2 - Td or Tdap) 11/03/2023 11/02/2013 CKD PHOS USE SMARTSET 27926 12/02/202311/07, 10/12/2021, 02/07/2020 GFR 01/17/2024 07/18/2023, 04/09, 02/04/2023, Additional history exists CKD HGB USE SMARTSET 63793 07/18/202407/18, 07/18/2023, 04/27/2023, Additional history exists Diabetes [...] this encounter Medical Devices Implanted Type Area Right Of Way Clearer Device Identifier Shelf Expiration Date Model / Serial / Lot Implant Hi Prof Gel 750cc - [id number] Implanted:Qty: 1 on 07/02/2013 at [place] [facility] [place] Right: Breast MENTOR DARVIN 11/30/2013 350-7504BC / [id number] / [id number] Implant Hi Prof Gel 750cc - [id number] Implanted:Qty: 1 on 07/02/2013 at [place] [facility] [place] Left: Breast MENTOR DARVIN 04/01/2014 350-7504BC / [id number] / [id number] documented as of this encounter Advance Directives [...] occurred with: Not Discussed Care Teams Manager Shift Relationship Specialty Start Date End Date Susie White MD 200 [facility] [place] [address] PCP - General Internal Medicine 03/02/12 documented as of this encounter
--- OUTSIDE RECORDS SUMMARY | 2024-02-18 11:36 | External Medical Summary ---
Author Name Unknown Address Unknown Organization K01:LABORATORY [facility] - [address] [place] [address] Laboratory Report Ordering Provider Test Date Status DON MOSER 11/21/2023 07:36:45 Final Normal: <30 mg/g creatinine< br/>High: 30-300 mg/g creatinine
Very High: >300 mg/g creatinine
Nephrotic: >2200 mg/g creatinine Observation Date Value Abnormality Reference (Units ) Status Albumin, Urine 11/21/2023 07:36:45 1.54 (mg/dL) Final Creatinine, Urine 11/21/2023 07:36:45 127 (mg/dL) Final Albumin/Creatinine [Mass Ratio] in Urine 11/21/2023 07:36:45 12 <30 (mg/g Creat) Final Performing Location LABORATORY [facility] - [address] [place] [address]
--- OUTSIDE RECORDS SUMMARY | 2024-02-18 11:36 | External Medical Summary ---
Author Name Unknown Address Unknown Organization K01:[facility] [address] [place] [address] Laboratory Report Ordering Provider Test Date Status DAVIAN VALERIO 11/21/2023 07:36:45 Final Observation Date Value Abnormality Reference (Units ) Status MYCODE SPECIMEN-SST 11/21/2023 07:36:45 Freezing of extracted DNA, whole blood and/or serum. Final Performing Location [facility] [address] [place] [address]
--- OUTSIDE RECORDS SUMMARY | 2024-02-18 11:36 | External Medical Summary | Summary of Care ---
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) Malignant neoplasm of overlapping sites of both breasts in female, estrogen receptor positive (HCC) Procedures [place] INJECTION, FULVESTRANT Cory Infante MD [address] [place] [address] Anc Hem/Onc [address] [phone] Referral ID Status Reason Start Date Expiration Date V isits Requested Visits Authorized [id number] Authorized 09/16/2023 03/13/2024 [id number] Encounter Details Date Type Department Care Team (Late st Contact Info) Description 11/22/2023 10:15 AM EDT Immunization/I njection Hematology/Oncology Treatment, [address] [address] Nurse, Med [address] [place] [address] 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 Clinic Hem/Onc [address] [place] [address] 11/25/2023 1:30 PM EDT Nurse Only Hematology/Oncology Salma Jaquez [place] [address] [place] [phone] [place], Nurse Hem Onc Scenery [address] [place] [address] 12/06/2023 8:15 AM EDT Imaging Radiology [facility] 1st [facility], [place] [address] [facility] [place] [address] 12/15/2023 2:45 PM EDT Office Visit Hematology/Oncology Salma Jaquez [place] [address] [place] [phone] Cory Infante MD [address] [place] [address] 12/20/2023 10:15 AM EDT Immunization/Inject ion Hematology/Oncology Treatment, [place] [address] [place] [phone] Nurse, Med 4 [address] [place] [address] 01/17/2024 10:15 AM EDT Immunization/Inject ion Hematology/Oncology Treatment, [place] [address] [facility] [place] [phone] Nurse, Med 4 [address] [facility] [place] [address] 05/25/2024 10:40 AM EDT Office Visit General Internal Medicine [facility] [address] [facility] [address] Susie White MD [address] [facility] [place] [address] 07/24/2024 11:00 AM EST Office Visit [address] [phone] Donita Cornejo PA-C [address] [place] [address] [place] [address] Scheduled Procedures Name Priority Associated Diagnoses Date/Ti me COLONOSCOPY FLEXIBLE PROXIMA L DIAGNOSTIC Recall History of colonic polyps Health Maintenance Due Date Last Done Comments Hepatitis B (1 of 3 - 19+ 3-dose series) 1991 GFR 05/22/2024 11/21/2023, 07/08, 04/27/2023, Additional history exists Depression Screening 11/16/2024 11/17/2023 Albumin/Creatinine Ratio 11/20/20242 024, 10/28/2022, 10/12/2021 CKD HGB USE SMARTSET 80744 11/20/202411/20, 11/21/2023, 07/18/2023, Additional history exists CKD PHOS USE SMARTSET 46189 11/20/202411/06, 12/01/2022, 10/12/2021, Additional history exists Pneumococcal [...] this encounter Medical Devices Implanted Type Area Energy Conservation Specialist Device Identifier Shelf Expiration Date Model / Serial / Lot Implant Hi Prof Gel 750cc - [id number] Implanted:Qty: 1 on 07/02/2013 at [place] [facility] [place] Right: Breast MENTOR DARVIN 11/30/2013 350-7504BC / [id number] / [id number] Implant Hi Prof Gel 750cc - [id number] Implanted:Qty: 1 on 07/02/2013 at [place] [facility] Left: Breast MENTOR DARVIN 04/01/2014 350-7504B / [id number] / [id number] documented as of this encounter Visit Diagnoses [...] Directives occurred with: Not Discussed Care Teams Leather Stretcher Relationship Specialty Start Date End Date Susie White MD [address] [place] [address] PCP - General Internal Medicine 03/02/12 documented as of this encounter
--- OUTSIDE RECORDS SUMMARY | 2024-02-18 11:36 | External Medical Summary | Summary of Care ---
Author Name Unknown Organization [facility] Address [address] [place] [address] Phone [phone] Care Team Providers Care Business Control Manager Name Role Phone Susie White MD Primary Care Provider [phone] Encounter Details Date Type Department Care Team (Late st Contact Info) Description 11/17/2023 Orders Only Hematology/Oncology Salma Jaquez [place] [address] [facility] [place] [phone] Clarence Patel MD 200 [facility] [place] [address] Malignant neoplasm of overlapping sites of both [...] Name: Molly Chowdhury [facility] Contact PI or ELECTRONIC CONTROLS REPAIRER SUPERVISOR regarding any serious medical event, if [...] Infante MD PI [facility] Name: Molly Chowdhury [facility] Contact PI or ELECTRONIC CONTROLS REPAIRER SUPERVISOR regarding any serious medical event, if [...] AM EDT Office Visit General Internal Medicine [facility] [place] [address] [place] [address] Susie White MD [address] [address] 11/21/2023 1:30 PM EDT Pharmacy Pharmacy Hematology Oncology [facility] [address] [place] [address] Gm, [facility] Hem/Onc [address] [place] [address] 11/22/2023 10:15 AM EDT Immunization/Inject ion Hematology/Oncology Treatment, [place] [address] [place] [phone] Nurse, Med [address] [address] 11/25/2023 1:30 PM EDT Nurse Only Hematology/Oncology [facility] [place] [address] [place] [phone] [place], Nurse Hem Onc [facility] [address] [address] 12/06/2023 8:15 AM EDT Imaging Radiology [facility] 1st [facility], [place] [address] [facility] [place] [phone] 12/15/2023 2:45 PM EDT Office Visit Hematology/Oncology [facility] [place] [address] [phone] Cory Infante MD [address] [place] [address] 07/24/2024 11:00 AM EST [place] [address] [address] [facility] [place] [address] Donita Cornejo PA-C [address] [place] [address] [place] [address] Scheduled Orders Name Type Priority Associated Diagnoses Orde r Schedule GLUCOSE, FASTING PLASMA Lab Routine Malignant neoplasm of overlapping sites of both breasts in female, estrogen receptor positive (HCC) Expected: 11/17/2023 (Approximate), Expires: 01/17/2024 Scheduled Procedures Name Priority Associated Diagnoses Date/Ti [...] Tdap) 11/03/2023 11/02/2013 CKD PHOS USE SMARTSET 27523 12/02/202311/07, 10/12/2021, 02/07/2020 GFR 01/17/2024 07/18/2023, 04/09, 02/04/2023, Additional history exists CKD HGB USE SMARTSET 60001 07/18/202407/18, 07/18/2023, 04/27/2023, Additional history exists Diabetes [...] this encounter Medical Devices Implanted Type Area Traffic Control Operator Device Identifier Shelf Expiration Date Model / Serial / Lot Implant Hi Prof Gel 750cc - [id number] Implanted:Qty: 1 on 07/02[place]2013 [place] [facility]: Breast MENTOR DARVIN 11/30/2013 350-7504BC / [id number] / [id number] Implant Hi Prof Gel 750cc - [id number] Implanted:Qty: 1 on 07/02/2013 at [facility] Left: Breast MENTOR DARVIN 04/01/2014 350-7504BC / [id number] / [id number] documented as of this encounter Visit Diagnoses [...] Directives occurred with: Not Discussed Care Teams Business Control Manager Relationship Specialty Start Date End Date Susie White MD 200 [facility] [place] [address] PCP - General Internal Medicine 03/02/12 documented as of this encounter
--- OUTSIDE RECORDS SUMMARY | 2024-02-18 11:36 | External Medical Summary ---
Author Name Unknown Address Unknown Organization [id number]:LABORATORY [facility] [place] - [address] [place] [address] Laboratory Report Ordering Provider Test Date Status LEBRON MEDINA 11/21/2023 07:36:45 Final Observation Date Value Abnormality Reference (Units ) Status Hep B surface Ag 11/21/2023 07:36:45 Negative Neg ative Final Performing Location LABORATORY [facility] - [address] [place] [address]
--- OUTSIDE RECORDS SUMMARY | 2024-02-18 11:36 | External Medical Summary | Summary of Care ---
Author Name Unknown Organization [facility] Address [address] [place] [facility] [address] Phone [phone] Care Team Providers Care Premium Service Representative Name Role Phone Susie White MD Primary Care Provider [phone] Encounter Details Date Type Department Care Team (Late st Contact Info) Description 11/18/2023 Orders Only PATIENT PORTAL DO NOT DELETE THIS DEPT USED BY [place] [address] Allergies No known active allergiesdocumented as of this encounter (statuses as of 11/18/2023) Medications Medication Sig Dispensed Refills Start Date [...] as of this encounter (statuses as of 11/18/2023) Active Problems Problem Noted Date Diagnosed Date [...] as of this encounter (statuses as of 11/18/2023) Resolved Problems Problem Noted Date Diagnosed Date [...] CRC Name: Molly Luciana [facility] Contact PI or INVESTIGATIONS MANAGER regarding any serious medical event, if [...] CRC Name: Molly Luciana [facility] Contact PI or INVESTIGATIONS MANAGER regarding any serious medical event, if new Rx given, ER visit, hospitalization, or billing question Diagnosis changed due to Research Module. Go to Snapshot for study details. documented as of this encounter (statuses as of 11/18/2023) Immunizations Name Administration Dates Next Due COVID-19 [...] 1:30 PM EDT Pharmacy Pharmacy Hematology Oncology [facility] [place] [address] [place] [address] [facility] Hem[facility]Onc [address] [place] [address] 11/22/2023 10:15 AM EDT Immunization/Inject ion Hematology/Oncology Treatment, [place] [address] [place] [address] [facility] [address] 11/25/2023 1:30 PM EDT Nurse Only Hematology/Oncology [facility] [place] [address] [facility] [place] [phone] [place], Nurse Hem Onc [facility] [address] [facility] [place] [address] 12/06/2023 8:15 AM EDT Imaging Radiology [address] [facility] [place] [address] 12/15/2023 2:45 PM EDT Office Visit Hematology/Oncology [facility] [address] [facility] [place] [phone] Cory Infante MD [address] [facility] [place] [address] 05/25/2024 10:40 AM EDT Office Visit General Internal Medicine [facility] [place] [address] [place] [address] Susie White MD [address] [facility] [place] [address] 07/24/2024 11:00 AM EST Office Visit [address] [address] Donita Cornejo PA-C [address] [place] [address] [place] [address] Scheduled Procedures Name Priority Associated Diagnoses Date/Ti me COLONOSCOPY FLEXIBLE PROXIMA L DIAGNOSTIC Recall History of colonic polyps Health Maintenance Due Date Last Done Comments HIV Screening 1987 Hepatitis C Screening 1990 Hepatitis B (1 of 3 - 19+ 3-dose series) 1991 Albumin/Creatinine Ratio 10/29/2023 10/28/2022, 03/0 02/2022 CKD PHOS USE SMARTSET 47886 12/02/2023 04/2 01/2023, 10/12/2021, 02/07/2020 GFR 01/17/2024 07/18/2023, 04/09, 02/04/2023, Additional history exists CKD HGB USE SMARTSET 24422 07/18/202407/18, 07/18/2023, 04/27/2023, Additional history exists Depression [...] this encounter Medical Devices Implanted Type Area Loss Prevention Analyst Device Identifier Shelf Expiration Date Model / Serial / Lot Implant Hi Prof Gel 750cc - [id number] Implanted:Qty: 1 on 07/02/2013 at [place] [facility] [place] Right: Breast CreactivesOR DARVIN 11/30/2013 350-8764BC / [id number] / [id number] Implant Hi Prof Gel 750cc - [id number] Implanted:Qty: 1 on 07/02/2013 at [place] [facility] [place] Left: Breast MENTOR DARVIN 04/01/2014 350-7504BC / [id number] / [id number] documented as of this encounter Advance Directives [...] Directives occurred with: Not Discussed Care Teams Premium Service Representative Relationship Specialty Start Date End Date Susie White MD [address] [place] [address] PCP - General Internal Medicine 03/02/12 documented as of this encounter
--- OUTSIDE RECORDS SUMMARY | 2024-02-18 11:36 | External Medical Summary ---
Author Name Unknown Address Unknown Organization K01:LAB[facility]ATORY [facility] [place] [address] [place] [address] Laboratory Report Ordering Provider Test Date Status LEBRON MEDINA 11/21/2023 07:36:45 Final Based on guidelines from [place] [employer]:
70-99 mg/dL Normal
100-125 mg/dL Pre-diabetes
>125 mg/dL Diabetes, diagnosis requires two abnormal diabetes diagnostic test results Observation Date Value Abnormality Reference (Units ) Status Fasting glucose [Moles/volume] in Serum or Plasma 11/21/2023 07:36:45 80 70-99 (mg/dL) Final Performing Location [facility]ORY [facility] [place] [address] [place] [address]
--- OUTSIDE RECORDS SUMMARY | 2024-02-18 11:36 | External Medical Summary ---
Author Name Unknown Address Unknown Organization K01:LABORATORY [facility] - [address] [facility] [address] [place] [address] Laboratory Report Ordering Provider Test Date Status LEBRON MEDINA 11/21/2023 07:36:45 Final Observation Date Value Abnormality Reference (Units ) Status Hepatitis B virus core Ab [Presence] in Serum 11/21/2023 07:36:45 Negative Negative Final Performing Location LABORATORY [facility] - [address] [place] [address]
--- OUTSIDE RECORDS SUMMARY | 2024-02-18 11:37 | External Medical Summary | Summary of Care ---
Author Name Unknown Organization [facility] Address [address] [place] [address] Phone [phone] Care Team Providers Care Ocean Fishing Guide Name Role Phone Susie White MD Primary Care Provider [phone] Reason for Visit * Reason Comments eRx-Medication Refill Encounter Details Date Type Department Care Team (Late st Contact Info) Description 11/15/2023 Refill Hematology/Oncology [facility] [place] 200 [facility] [place] [phone] Cory Infante MD 200 [facility] [place] [address] Malignant neoplasm of overlapping sites of both breasts in female, estrogen receptor positive (HCC); 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 100 Tab 11 09/08/2012 Active traZODone HCl 50 MG Oral Tablet (Desyrel)Indications :Other insomnia Take 1 Tablet by mouth at bedtime. 90 Tablet 3 10/12/2022 Active Omeprazole 20 MG Oral Capsule Delayed [...] 1 Tablet before bedtime. 0 09/05/2023 Active oxyCODONE-Acetaminop hen 5-325 MG Oral Tablet (Percocet) Take 1 Tablet by mouth every 4 hours as needed for Pain, Moderate. 0 09/02/2023 Active Fulvestrant 250 MG/5ML Intramuscular Solution Prefilled Syringe (Faslodex) Inject into a large muscle every 4 weeks. 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 90 Tablet 3 10/12/2022 4 Discontinued documented as of this encounter (statuses as of 11/15/2023) Active Problems Problem Noted Date Diagnosed Date [...] as of this encounter (statuses as of 11/15/2023) Resolved Problems Problem Noted Date Diagnosed Date [...] CRC Name: Molly LIND Contact PI or LIGHT AIR DEFENSE ARTILLERY CREWMEMBER regarding any serious medical event, if new [...] B47 PI Name: Cory Infante MD PI [facility] Name: Molly Varnerbeatrice [facility] Contact PI or LIGHT AIR DEFENSE ARTILLERY CREWMEMBER regarding any serious medical event, if new Rx given, ER visit, hospitalization, or billing question Diagnosis changed due to Research Module. Go to Snapshot for study details. documented as of this encounter (statuses as of 11/15/2023) Immunizations Name Administration Dates Next Due COVID-19 [...] encounter Miscellaneous Notes * Telephone Encounter - Pastora Velasquez LPN - 11/15/2023 8:06 AM EDTPending Prescriptions: Disp Refills Letrozole 2.5 MG Oral Tablet [Pharmacy Med*90 Tab*3 Sig: TAKE 1 TABLET IN THE MORNING * Telephone Encounter - Pastora Velasquez LPN - 11/15/2023 7:59 AM EDT Refill request for letrozole 2.5 mg pended below: Last Refill: 10/12/2022 Last seen: 09/16/2023 Per OVN: We decided to continue letrozole and ribociclib but in late August of 2023, she has developed small-bowel obstruction, underwent resection, final pathology showed metastatic breast cancer involving small bowel. I would like to discontinue letrozole and ribociclib. Next Appt.: 12/15/2023 documented in this encounter Plan of Treatment Upcoming Encounters Date Type Department Care Team (Late st Contact Info) Description 11/15/2023 1:00 PM EDT Pharmacy Pharmacy Hematology Oncology [facility] [place] [address] [place] [address] [facility] Hem/Onc [address] [place] [address] 11/17/2023 11:40 AM EDT Office Visit General Internal Medicine [facility] [place] [address] [place] [address] Susie White MD [address] [address] 11/22/2023 10:15 AM EDT Immunization/Inject ion Hematology/Oncology Treatment, [place] [address] [place] [phone] Nurse, Med 4 [address] [facility] [place] [address] [address] 11/25/2023 1:30 PM EDT Nurse Only Hematology/Oncology [facility] [place] [address] [place] [phone] [place], Nurse Hem Onc [facility] [address] [address] 12/06/2023 8:15 AM EDT Imaging Radiology [address], [place] 132 [facility] [place] [address] 12/15/2023 2:45 PM EDT Office Visit Hematology/Oncology [facility] [place] [address] [place] [phone] Cory Infante MD [address] [place] [address] 07/24/2024 11:00 AM EST Office Visit Dermat[address] [phone] Donita Cornejo PA-C [address] [place] [address] [place] [address] Scheduled Procedures Name Priority Associated Diagnoses Date/Ti me COLONOSCOPY FLEXIBLE PROXIMA L DIAGNOSTIC Recall History of colonic polyps Health Maintenance Due Date Last Done Comments HIV Screening 1987 Hepatitis C Screening 1990 Hepatitis B (1 of 3 - 19+ 3-dose series) 1991 Albumin/Creatinine Ratio 10/29/2023 10/28/2022, 0302/2022 Depression Screening 10/29/2023 10/28/2022 DTaP,Tdap,and Td Vaccines (2 - Td or Tdap) 11/03/2023 11/02/2013 CKD PHOS USE SMARTSET 38164 12/02/202311/07, 10/12/2021, 02/07/2020 GFR 01/17/2024 07/18/2023, 04/09, 02/04/2023, Additional history exists CKD HGB USE SMARTSET 80282 07/18/202407/18, 07/18/2023, 04/27/2023, Additional history exists Diabetes [...] this encounter Medical Devices Implanted Type Area Crane Man Device Identifier Shelf Expiration Date Model / Serial / Lot Implant Hi Prof Gel 750cc - [id number] Implanted:Qty: 1 on 07/02/2013 [place] [facility] [place]: Breast MENTOR DARVIN 11/30/2013 350-7504BC / [id number] / [id number] Implant Hi Prof Gel 750cc - [id number] Implanted:Qty: 1 on 07/02/2013 [place] [facility] [place] Left: Breast MENTOR DARVIN 04/01/2014 350-7504BC / [id number] / [id number] documented as of this encounter Visit Diagnoses Diagnosis Malignant neoplasm of overlapping sites of both breasts in female, estrogen receptor positive (HCC) 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
--- OUTSIDE RECORDS SUMMARY | 2024-02-18 11:37 | External Medical Summary | Summary of Care ---
Author Name Unknown Organization [facility] Address [address] [place] [address] Phone [phone] Care Team Providers Care Object Oriented Developer Name Role Phone Susie White MD Primary Care Provider [phone] Reason for Visit * Reason Onset Date Comments Fax 11/02/2023 Naresh patient. Encounter Details Date Type Department Care Team (Late st Contact Info) Description 11/02/2023 Telephone Hematology/Oncology [facility] [place] [address] [place] [place] [address] Services, Scheduling [address] [place] [address] Fax (Naresh patient. ) Allergies No known active allergiesdocumented as of this encounter (statuses as of 11/02/2023) Medications Medication Sig Dispensed Refills Start Date [...] the morning. 90 Tablet 3 10/12/2022 Active Additional Information Patient not taking.Reported on 09/19/2023 Omeprazole 20 MG Oral Capsule Delayed Release [...] 1 Tablet before bedtime. 0 09/05/2023 Active oxyCODONE-Acetaminoph en 5-325 MG Oral Tablet (Percocet) Take 1 Tablet by mouth every 4 hours as needed for Pain, Moderate. 0 09/02/2023 Active Fulvestrant 250 MG/5ML Intramuscular Solution Prefilled Syringe (Faslodex) Inject into a large muscle every 4 weeks. 0 Active documented as of this encounter (statuses as of 11/02/2023) Active Problems Problem Noted Date Diagnosed Date [...] as of this encounter (statuses as of 11/02/2023) Resolved Problems Problem Noted Date Diagnosed Date [...] Name: Molly Chowdhury CRC Contact PI or BRASS BUFFER regarding any serious medical event, if new [...] Chowdhury [facility] Contact PI or BRASS BUFFER regarding any serious medical event, if new Rx given, ER visit, hospitalization, or billing question Diagnosis changed due to Research Module. Go to Snapshot for study details. documented as of this encounter (statuses as of 11/02/2023) Immunizations Name Administration Dates Next Due COVID-19 [...] Telephone Encounter - Pastora Velasquez LPN - 11/02/2023 9:25 AM EDT Per request below: Faxed copy of 08-12-2023: CT Abd/Pelvis w/wo IV contrast to Attn: [employer] Zavala, Fax provided: [phone]. * Telephone Encounter - Marci Qiu OSA - 11/02/2023 9:11 AM EDT Caller requesting the following information to be faxed: Name/Company of caller: [employer] Zavala with [facility] Information requested to be faxed: 08/12/23 CT Abd/Pelvis w iv contrast - wo oral contrast Fax number: [phone] Attention to Name/Company: [employer] Zavala with [facility] Any additional information?: Patients appointment with [facility] is at 10am today 11/02/2023, Sally asking if fax can be done [email or web address]. documented in this encounter Plan of Treatment Upcoming Encounters Date Type Department Care Team (Late st Contact Info) Description 11/17/2023 11:40 AM EDT Office Visit General Internal Medicine Salma Jaquez [place] [address] [place] [address] Susie White MD [address] [place] [address] [address] 11/22/2023 10:15 AM EDT Immunization/Injec tion Hematology/Oncology Treatment, [place] 200 [facility] [place] [phone] Nurse, Med 4 200 [facility] [place] [address] 12/06/2023 8:15 AM EDT Imaging Radiology [address] 132 [facility] [place] [address] 12/15/2023 2:45 PM EDT Office Visit Hematology/Oncology [facility] [address] [place] [phone] Cory Infante MD [address] [place] [address] 07/24/2024 11:00 AM EST Office Visit [address] [address] Donita Cornejo PA-C [address] [place] [address] [place] [address] Scheduled Procedures Name Priority Associated Diagnoses Date/Ti me COLONOSCOPY FLEXIBLE PROXIMA L DIAGNOSTIC Recall History of colonic polyps Health Maintenance Due Date Last Done Comments HIV Screening 1987 Hepatitis C Screening 1990 Hepatitis B (1 of 3 - 19+ 3-dose series) 1991 Albumin/Creatinine Ratio 10/29/2023 10/28/2022, 03/02/2022 Depression Screening 10/29/2023 10/28/2022 DTaP,Tdap,and Td Vaccines (2 - Td or Tdap) 11/03/2023 11/02/2013 CKD PHOS USE SMARTSET 92943 12/02/2023 04/2 01/2023, 10/12/2021, 02/07/2020 GFR 01/17/2024 07/18/2023, 04/09, 02/04/2023, Additional history exists CKD HGB USE SMARTSET 11413 07/18/202407/18, 07/18/2023, 04/27/2023, Additional history exists Diabetes [...] this encounter Medical Devices Implanted Type Area Export Clerk Device Identifier Shelf Expiration Date Model / Serial / Lot Implant Hi Prof Gel 750cc - [id number] Implanted:Qty: 1 on 07/02/2013 at OR [facility] Right: Breast MENTOR DARVIN 11/30/2013 350-7504BC / [id number] / [id number] Implant Hi Prof Gel 750cc - [id number] Implanted:Qty: 1 on 07/02/2013 at OR [facility] Left: Breast MENTOR DARVIN 04/01/2014 350-7504BC / [id number] / [id number] documented as of this encounter Advance Directives [...] Directives occurred with: Not Discussed Care Teams Object Oriented Developer Relationship Specialty Start Date End Date Susie White MD 200 [facility] [place] [address] PCP - General Internal Medicine 03/02/12 documented as of this encounter
--- OUTSIDE RECORDS SUMMARY | 2024-02-18 11:37 | External Medical Summary | Summary of Care ---
Author Name Unknown Organization [facility] Address [address] [facility] [place] [address] Phone [phone] Care Team Providers Care Gym Manager Name Role Phone Susie White MD Primary Care Provider [phone] Reason for Visit * Reason Onset Date Comments Pre Cert/Prior Auth 11/16/2023 Encounter Details Date Type Department Care Team (Late st Contact Info) Description 11/16/2023 Telephone Hematology/Oncology [facility] [place] [address] [place] [phone] Clarence Patel MD [address] [place] [address] Pre Cert/Prior Auth Allergies No known active allergiesdocumented as of this encounter (statuses as of 11/16/2023) Medications Medication Sig Dispensed Refills Start Date [...] as of this encounter (statuses as of 11/16/2023) Active Problems Problem Noted Date Diagnosed Date [...] as of this encounter (statuses as of 11/16/2023) Resolved Problems Problem Noted Date Diagnosed Date [...] Name: Molly Chowdhury CRC Contact PI or PROJECT MANAGEMENT SPECIALIST regarding any serious medical event, if [...] [facility] Contact PI or PROJECT MANAGEMENT SPECIALIST regarding any serious medical event, if new Rx given, ER visit, hospitalization, or billing question Diagnosis changed due to Research Module. Go to Snapshot for study details. documented as of this encounter (statuses as of 11/16/2023) Immunizations Name Administration Dates Next Due COVID-19 [...] Miscellaneous Notes * Telephone Encounter - Jacqueline Hedrick [facility] - 11/16/2023 3:54 PM EDT Can you please submit the following medication? ICD-10: Metastatic Breast Cancer, C50.811, C50.812, Z17.0 Start date: TBD Drugs: Capivasertib (Truqap) 200 mg tablets Dose: 400 mg twice daily (~12 hours apart) for 4 consecutive days, followed by 3 days off (administer capivasertib on days 1 to 4 of each week) Multidisciplinary Clinic note: Recommended in [facility] [place] notes from 11/02/[address] Patel on 11/14/23 Physician: Dr. Patel Comments: N/A Concurrent Therapy: yes, fulvestrant Jacqueline Hedrick, PharmD, BCOP Ambulatory Clinical Pharmacist | Oral Chemotherapy Clinic [facility] 11/16/2023, 3:59 PM documented in this encounter Plan of Treatment Upcoming Encounters Date Type Department Care Team (Late st Contact Info) Description 11/17/2023 11:40 AM EDT Office Visit General Internal Medicine Salma Jaquez [address] [place] [address] Susie White MD [address] [place] [address] [place] [address] 11/22/2023 10:15 AM EDT Immunization/Injec tion Hematology/Oncology Treatment, [address] [place] [phone] Nurse, Med [facility] [place] [address] [address] 11/25/2023 1:30 PM EDT Nurse Only Hematology/Oncology [facility] [address] [place] [phone] Park, Nurse Hem Onc [facility] [address] [place] [address] 12/06/2023 8:15 AM EDT Imaging Radiology [address] 132 [employer] [place] [address] 12/15/2023 2:45 PM EDT Office Visit Hematology/Oncology [facility] [place] [address] [place] [phone] Cory Infante MD [address] [place] [address] 07/24/2024 11:00 AM EST Office Visit [address] [place] [address] Donita Cornejo PA-C [address] [place] [address] [place] [address] Scheduled Procedures Name Priority Associated Diagnoses Date/Ti [...] Tdap) 11/03/2023 11/02/2013 CKD PHOS USE SMARTSET 79079 12/02/202311/07, 10/12/2021, 02/07/2020 GFR 01/17/2024 07/18/2023, 04/09, 02/04/2023, Additional history exists CKD HGB USE SMARTSET 98596 07/18/202407/18, 07/18/2023, 04/27/2023, Additional history exists Diabetes Screening 07/18/2026 07/18/2023, 0 04/27/2023, 02/04/2023, Additional history exists Pneumococcal Vaccine: Pediatrics (0 to 5 Years) and At-Risk Patients (6 to 64 Years) (3 of 3 - PPSV23 or PCV20) 10/01/2026 10/01/2021, 05/26/2020 Lipid Panel 12/02/2027 12/01/2022, 02/2022, 11/03/2020, Additional history exists COLONOSCOPY-EVERY 5 [...] this encounter Medical Devices Implanted Type Area Headline Writer Device Identifier Shelf Expiration Date Model / Serial / Lot Implant Hi Prof Gel 750cc - [id number] Implanted:Qty: 1 on 07/02/2013 at OR [facility] Right: Breast MENTOR DARVIN 11/30/2013 350-7504BC / [id number] / [id number] Implant Hi Prof Gel 750cc - [id number] Implanted:Qty: 1 on 07/02/2013 at OR [facility] Left: Breast MENTOR DARVIN 04/01/2014 350-7504BC / [id number] / [id number] documented as of this encounter Advance Directives [...] Directives occurred with: Not Discussed Care Teams Gym Manager Relationship Specialty Start Date End Date Susie White MD 200 [facility] [place] [address] PCP - General Internal Medicine 03/02/12 documented as of this encounter"
--- OUTSIDE RECORDS SUMMARY | 2024-02-18 11:37 | External Medical Summary | Summary of Care ---
Author Name Unknown Organization [facility] Address [address] [place] [facility] [place] [address] Phone [phone] Care Team Providers Care Chuck Tender Name Role Phone Susie White MD Primary Care Provider [phone] Reason for Visit * Reason Onset Date Comments Pre Cert/Prior Auth 11/16/2023 Encounter Details Date Type Department Care Team (Late st Contact Info) Description 11/16/2023 Telephone Hematology/Oncology [facility] [place] [address] [place] [phone] Clarence Patel MD [address] [place] [address] Pre Cert/Prior Auth Allergies No known active [...] Name: Molly Chowdhury CRC Contact PI or SATELLITE TELEVISION INSTALLER regarding any serious medical event, if [...] PI CRC Name: Molly Chowdhury [facility] Contact PI or SATELLITE TELEVISION INSTALLER regarding any serious medical event, if [...] Notes * Telephone Encounter - Jacqueline Hedrick [facility] - 11/16/2023 3:54 PM EDT Can you please submit the following medication? ICD-10: Metastatic Breast Cancer, C50.811, C50.812, Z17.0 Start date: TBD Drugs: Capivasertib (Truqap) 200 mg tablets Dose: 400 mg twice daily (~12 hours apart) for 4 consecutive days, followed by 3 days off (administer capivasertib on days 1 to 4 of each week) Multidisciplinary Clinic note: Recommended in [facility] [place] notes from 11/02/[address] Patel on 11/14/23 Physician: Dr. Patel Comments: N/A Concurrent Therapy: yes, fulvestrant Jacqueline Hedrick, PharmD, BCOP Ambulatory Clinical Pharmacist | Oral Chemotherapy Clinic [facility] 11/16/2023, 3:59 PM documented in this encounter Plan of Treatment Upcoming Encounters Date Type Department Care Team (Late st Contact Info) Description 11/17/2023 11:40 AM EDT Office Visit General Internal Medicine Salma Jaquez [address] [place] [address] Susie White MD [address] [place] [address] [place] [address] 11/22/2023 10:15 AM EDT Immunization/Injec tion Hematology/Oncology Treatment, [address] [place] [phone] Nurse, Med [facility] [place] [address] [address] [address] 11/25/2023 1:30 PM EDT Nurse Only Hematology/Oncology [facility] [address] [place] [phone] [place], Nurse Hem Onc [facility] [address] [place] [address] 12/06/2023 8:15 AM EDT Imaging Radiology [address] 132 [facility] [place] [address] 12/15/2023 2:45 PM EDT Office Visit Hematology/Oncology [facility] [place] [address] [place] [phone] Cory Infante MD [address] [place] [address] 07/24/2024 11:00 AM EST Office Visit [address] [place] [address] Donita Cornejo PA-C [address] [place] [address] [place] [address] Scheduled Procedures Name Priority Associated Diagnoses Date/Ti [...] Tdap) 11/03/2023 11/02/2013 CKD PHOS USE SMARTSET 49676 12/02/202311/07, 10/12/2021, 02/07/2020 GFR 01/17/2024 07/18/2023, 04/09, 02/04/2023, Additional history exists CKD HGB USE SMARTSET 04349 07/18/202407/18, 07/18/2023, 04/27/2023, Additional history exists Diabetes [...] this encounter Medical Devices Implanted Type Area Talent Buyer Device Identifier Shelf Expiration Date Model / Serial / Lot Implant Hi Prof Gel 750cc - [id number] Implanted:Qty: 1 on 07/02/2013 at OR [facility] Right: Breast MENTOR DARVIN 11/30/2013 350-7504BC / [id number] / [id number] Implant Hi Prof Gel 750cc - [id number] Implanted:Qty: 1 on 07/02/2013 at OR [facility] Left: Breast MENTOR DARVIN 04/01/2014 350-7504BC / [id number] / [id number] documented as of this encounter Advance Directives [...] Directives occurred with: Not Discussed Care Teams Chuck Tender Relationship Specialty Start Date End Date Susie White MD 200 [place] [address] PCP - General Internal Medicine 03/02/12 documented as of this encounter"
--- OUTSIDE RECORDS SUMMARY | 2024-02-18 11:37 | External Medical Summary | Summary of Care ---
Author Name Unknown Organization [facility] Address [address] [place] [address] Phone [phone] Care Team Providers Care Salesperson Terrazzo Tiles Name Role Phone Susie White MD Primary Care Provider [phone] Reason for Visit * Reason Onset Date Comments Precert Future 11/15/2023 Encounter Details Date Type Department Care Team (Late st Contact Info) Description 11/15/2023 Telephone Hematology/Oncology Treatment, [place] [address] [facility] [place] [address] Clarence Patel MD 200 [place], [place] [phone] Precert Future Allergies No known active allergiesdocumented [...] Name: Molly Chowdhury CRC Contact PI or CROP SCOUT regarding any serious medical event, if new [...] Name: Molly Chowdhury CRC Contact PI or CROP SCOUT regarding any serious medical event, if new [...] 1:00 PM EDT Pharmacy Pharmacy Hematology Oncology [facility] [address] [place] [address] [facility], [facility] Hem/Onc [address] [place] [address] 11/17/2023 11:40 AM EDT Office Visit General Internal Medicine [facility] [place] 200 [facility] [place] [address] Susie White MD 200 [facility] [place] [address] 11/22/2023 10:15 AM EDT Immunization/Inject ion Hematology/Oncology Treatment, [place] 200 [facility] [place] [phone] Nurse, Med [address] [facility] [place] [address] 12/06/2023 8:15 AM EDT Imaging Radiology [facility] 1st Floor, [place] 132 [facility] [place] [address] 12/15/2023 2:45 PM EDT Office Visit Hematology/Oncology [facility] [place] [address] [place] [phone] Cory Infante MD [address] [place] [address] 07/24/2024 11:00 AM EST Office Visit Dermat[address] [address] Donita Cornejo PA-C [address] [place] [address] [place] [address] Scheduled Orders Name Type Priority Associated Diagnoses Orde r Schedule HEPATITIS B SURFACE ANTIBODY Lab STAT Malignant neoplasm of overlapping sites of both breasts in female, estrogen receptor positive (HCC) Expected: 11/15/2023 (Approximate), Expires: 11/14/2024 HEPATITIS B SURFACE ANTIGEN Lab STAT Malignant neoplasm of overlapping sites of both breasts in female, estrogen receptor positive (HCC) Expected: 11/15/2023 (Approximate), Expires: 11/14/2024 HEPATITIS B CORE ANTIBODIES IGG AND IGM Lab STAT Malignant neoplasm of overlapping sites of both breasts in female, estrogen receptor positive (HCC) Expected: 11/15/2023 (Approximate), Expires: 11/14/2024 CBC WITH WBC DIFFERENTIAL Lab STAT Malignant neoplasm of overlapping sites of both breasts in female, estrogen receptor positive (HCC) Expected: 11/15/2023 (Approximate), Expires: 11/14/2024 COMPREHENSIVE METABOLIC PANEL Lab STAT Malignant neoplasm of overlapping sites of both breasts in female, estrogen receptor positive (HCC) Expected: 11/15/2023 (Approximate), Expires: 11/14/2024 HEMOGLOBIN A1C Lab STAT Malignant neoplasm of overlapping sites of both breasts in female, estrogen receptor positive (HCC) Expected: 11/15/2023 (Approximate), Expires: 11/14/2024 Scheduled Procedures Name Priority Associated Diagnoses Date/Ti [...] Tdap) 11/03/2023 11/02/2013 CKD PHOS USE SMARTSET 99084 12/02/2023 04/01/2023, 10/12/2021, 02/07/2020 GFR 01/17/2024 07/18/2023, 04/09, 02/04/2023, Additional history exists CKD HGB USE SMARTSET 68366 07/18/202407/18, 07/18/2023, 04/27/2023, Additional history exists Diabetes [...] this encounter Medical Devices Implanted Type Area Community Development Director Device Identifier Shelf Expiration Date Model / Serial / Lot Implant Hi Prof Gel 750cc - [id number] Implanted:Qty: 1 on 07/02/2013 [place] [facility] [place]: Breast MENTOR DARVIN 11/30/2013 350-7504BC / [id number] / [id number] Implant Hi Prof Gel 750cc - [id number] Implanted:Qty: 1 on 07/02/2013 [place] [facility] [place]: Breast MENTOR DARVIN 04/01/2014 350-7504BC / [id number] / [id number] documented as of this encounter Visit Diagnoses [...] Directives occurred with: Not Discussed Care Teams Salesperson Terrazzo Tiles Relationship Specialty Start Date End Date Susie White MD [address] [place] [address] PCP - General Internal Medicine 03/02/12 documented as of this encounter
--- OUTSIDE RECORDS SUMMARY | 2024-02-18 11:37 | External Medical Summary | Summary of Care ---
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)* Allergies No known active allergiesdocumented as of this encounter (statuses as of 11/14/2023) Medications Medication Sig Dispensed Refills Start Date [...] as of this encounter (statuses as of 11/14/2023) Active Problems Problem Noted Date Diagnosed Date [...] as of this encounter (statuses as of 11/14/2023) Resolved Problems Problem Noted Date Diagnosed Date [...] Name: Molly Chowdhury CRC Contact PI or PARACHUTE LINE TIER regarding any serious medical event, if new [...] Name: Molly Chowdhury CRC Contact PI or PARACHUTE LINE TIER regarding any serious medical event, if new Rx given, ER visit, hospitalization, or billing question Diagnosis changed due to Research Module. Go to Snapshot for study details. documented as of this encounter (statuses as of 11/14/2023) Immunizations Name Administration Dates Next Due COVID-19 [...] EDT Office Visit General Internal Medicine [facility] 200 [facility] [place] [address] Susie White MD 200 [facility] [place] [address] 11/22/2023 10:15 AM EDT Immunization/Injec tion Hematology/Oncology Treatment, [place] [address] [place] [phone] Nurse, Med 200 [facility] [place] [address] 12/06/2023 8:15 AM EDT Imaging Radiology [facility] 1st [facility], [place] 132 [facility] [place] [address] 12/15/2023 2:45 PM EDT Office Visit Hematology/Oncology [facility] 200 [facility] [place] [phone] Cory Infante MD 200 [facility] [place] [address] 07/24/2024 11:00 AM EST Office Visit Dermatology[address] [place] [address] Donita Cornejo PA-C [address] [place] [address] [place] [address] Scheduled Procedures Name Priority Associated Diagnoses Date/Ti [...] Tdap) 11/03/2023 11/02/2013 CKD PHOS USE SMARTSET 70115 12/02/2023 0401/2023, 10/12/2021, 02/07/2020 GFR 01/17/2024 07/18/2023, 04/09, 02/04/2023, Additional history exists CKD HGB USE SMARTSET 05747 07/18/202407/18, 07/18/2023, 04/27/2023, Additional history exists Diabetes [...] this encounter Medical Devices Implanted Type Area Carpentry Instructor Device Identifier Shelf Expiration Date Model / Serial / Lot Implant Hi Prof Gel 750cc - [id number] Implanted:Qty: 1 on 07/02/2013 at OR [facility] Right: Breast MENTOR DARVIN 11/30/2013 350-7504BC / [id number] / [id number] Implant Hi Prof Gel 750cc - [id number] Implanted:Qty: 1 on 07/02/2013 at OR [facility] Left: Breast MENTOR DARVIN 04/01/2014 350-7504BC / [id number] / [id number] documented as of this encounter Visit Diagnoses [...] Directives occurred with: Not Discussed Care Teams Revenue Investigator Relationship Specialty Start Date End Date Susie White MD 200 [facility] [place] [address] PCP - General Internal Medicine 03/02/12 documented as of this encounter
--- OUTSIDE RECORDS SUMMARY | 2024-02-18 11:37 | External Medical Summary | Summary of Care ---
Author Name Unknown Organization [facility] Address [address] [place] [address] Phone [phone] Care Team Providers Care Mechanical Designer Name Role Phone Susie White MD Primary Care Provider [phone] Reason for Visit * Reason Comments Medication [...] [place] INJECTION, FULVESTRANT Cory Infante MD [address] [place] [address] Anc Hem/Onc [address] [address] Referral ID Status Reason Start Date Expiration Date V isits Requested Visits Authorized [id number] Authorized 09/16/2023 03/13/2024 [id number] Encounter Details Date Type Department Care Team (Late st Contact Info) Description 10/11/2023 10:15 AM EST Immunization/I njection Hematology/Oncology Treatment, [address] [address] Nurse, Med 200 [place] [address] 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)*; 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); Malignant neoplasm of overlapping sites of both breasts in female, estrogen receptor positive (HCC) Allergies No known active allergiesdocumented as of this encounter (statuses as of 10/11/2023) Medications Medication Sig Dispensed Refills Start Date [...] as of this encounter (statuses as of 10/11/2023) Active Problems Problem Noted Date Diagnosed Date [...] as of this encounter (statuses as of 10/11/2023) Resolved Problems Problem Noted Date Diagnosed Date [...] [facility] Contact PI or BOOTH USHER regarding any serious medical event, if new [...] [facility] Contact PI or BOOTH USHER regarding any serious medical event, if new Rx given, ER visit, hospitalization, or billing question Diagnosis changed due to Research Module. Go to Snapshot for study details. documented as of this encounter (statuses as of 10/11/2023) Immunizations Name Administration Dates Next Due COVID-19 [...] as of this encounter Nursing Notes * Pastora Velasquez LPN - 10/11/2023 10:45 AM EST Patient arrived for her Faslodex 500mg injection. Patient reports she had a bilateral oophorectomy performed in 2011 and is "unable to get ". Patient tolerated injections in left and right dorsogluteal well. Patient stable at discharge. documented in this encounter Plan of Treatment Upcoming Encounters Date Type Department Care Team (Late st Contact Info) Description 10/25/2023 10:15 AM EDT Immunization/Injec tion Hematology/Oncology Treatment, [place] [address] [place] [address] [facility] [address] 11/17/2023 11:40 AM EDT Office Visit General Internal Medicine [facility] [address] [place], [place] [address] Susie White MD [address] [facility] [place] [address] 12/06/2023 8:15 AM EDT Imaging Radiology [address] 132 [facility] [place] [address] 12/15/2023 2:45 PM EDT Office Visit Hematology/Oncology [facility] [address] [place] [phone] Cory Infante MD [address] [place] [address] 07/24/2024 11:00 AM EST Office Visit [address] [address] Donita Cornejo PA-C [address] [place] [address] [place] [address] Scheduled Procedures Name Priority Associated Diagnoses Date/Ti [...] Tdap) 11/03/2023 11/02/2013 CKD PHOS USE SMARTSET 51451 12/02/202311/07, 10/12/2021, 02/07/2020 GFR 01/17/2024 07/18/2023, 04/09, 02/04/2023, Additional history exists CKD HGB USE SMARTSET 75691 07/18/202407/18, 07/18/2023, 04/27/2023, Additional history exists Diabetes [...] this encounter Medical Devices Implanted Type Area Player Services Representative Device Identifier Shelf Expiration Date Model / Serial / Lot Implant Hi Prof Gel 750cc - [id number] [place]ed:[place] 1 [place]2013 [place] [facility] [place]: Breast MENTOR DARVIN 11/30/2013 350-7504BC / [id number] / [id number] Implant Hi Prof Gel 750cc - [id number] Implanted:Qty: 1 on 07/02/2013 [place] [facility] [place] [facility] [place]: Breast MENTOR DARVIN 04/01/2014 350-7504BC / [id number] / [id number] documented as of this encounter Visit Diagnoses [...] 500 mg 500 mg, Intramuscular, ONCE, On Tue10/11/23 at 1130, For 1 dose Given 10/11/2023 10:35 AM EST 500 mg Dorsogluteal Left documented in this [...] Directives occurred with: Not Discussed Care Teams Mechanical Designer Relationship Specialty Start Date End Date Susie White MD 200 [place] [address] PCP - General Internal Medicine 03/02/12 documented as of this encounter
--- OUTSIDE RECORDS SUMMARY | 2024-02-18 11:37 | External Medical Summary | Summary of Care ---
Author Name Unknown Organization [facility] Address [address] [facility] [place] [address] Phone [phone] Care Team Providers Care Hvac Installation Technician Name Role Phone Susie White MD Primary Care Provider [phone] Reason for Visit * Reason Comments eRx-Medication Refill Encounter Details Date Type Department Care Team (Late st Contact Info) Description 11/15/2023 Refill General Internal Medicine [facility] 200 [facility] [place] [address] Cezar Mayers MD 200 [place] [address] Other insomnia Allergies No known active allergiesdocumented as of [...] 11/16/2023 Active Letrozole 2.5 MG Oral Tablet (Femara)Indications: Malignant neoplasm of overlapping sites of both breasts in female, estrogen receptor positive (HCC),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 90 Tablet 3 10/12/2022 4 Discontinued documented [...] Name: Molly Chowdhury [facility] Contact PI or ASSISTANT CITY ATTORNEY regarding any serious medical event, if [...] Name: Molly Chowdhury [facility] Contact PI or ASSISTANT CITY ATTORNEY regarding any serious medical event, if [...] encounter Miscellaneous Notes * Telephone Encounter - Juanjose Fisher [facility] - 11/16/2023 11:50 AM EDT Signed Prescriptions: Disp Refills traZODone HCl 50 MG Oral Tablet (Desyrel) 90 Tab*3 Sig: TAKE 1 TABLET AT BEDTIMEAuthorizing Provider: Stacy WHITE User: JUANJOSE FISHER documented in this encounter Plan of Treatment Upcoming Encounters Date Type Department Care Team (Late st Contact Info) Description 11/17/2023 11:40 AM EDT Office Visit General Internal Medicine [facility] [place] [address] [place] [address] [address] Susie White MD [address] [place] [address] 11/22/2023 10:15 AM EDT Immunization/Injec tion Hematology/Oncology Treatment, [place] [address] [facility] [place] [phone] Nurse, Med [address] [place] [address] 11/25/2023 1:30 PM EDT Nurse Only Hematology/Oncology [facility] [place] [address] [phone] [place], Nurse Hem Onc [place] [address] [place] [address] 12/06/2023 8:15 AM EDT Imaging Radiology [facility] 1st [facility] [place] [address] [place] [address] 12/15/2023 2:45 PM EDT Office Visit Hematology/Oncology [facility] [address] [place] [address] Cory Infante MD [address] [place] [address] 07/24/2024 11:00 AM EST Office Visit [address] [place] [address] Donita oCrnejo PA-C [address] [place] [address] [place] [address] Scheduled Procedures Name Priority Associated Diagnoses Date/Ti [...] Tdap) 11/03/2023 11/02/2013 CKD PHOS USE SMARTSET 84973 12/02/2023 04/01/2023, 10/12/2021, 02/07/2020 GFR 01/17/2024 07/18/2023, 04/09, 02/04/2023, Additional history exists CKD HGB USE SMARTSET 00355 07/18/202407/18, 07/18/2023, 04/27/2023, Additional history exists Diabetes [...] this encounter Medical Devices Implanted Type Area Fuller Brush Man Device Identifier Shelf Expiration Date Model / Serial / Lot Implant Hi Prof Gel 750cc - [id number] Implanted:Qty: 1 on 07/02/2013 at [place] [facility] [place] Right: Breast MENTOR DARVIN 11/30/2013 350-7504BC / [id number] / [id number] Implant Hi Prof Gel 750cc - [id number] Implanted:Qty: 1 on 07/02/2013 at [place] [facility] [place] Left: Breast MENTOR DARVIN 04/01/2014 350-7504BC / [id number] / [id number] documented as of this encounter Visit Diagnoses Diagnosis Other insomnia documented in this encounter Advance Directives Latest [...] Directives occurred with: Not Discussed Care Teams Hvac Installation Technician Relationship Specialty Start Date End Date Susie White MD 200 [facility] [place] [address] PCP - General Internal Medicine 03/02/12 documented as of this encounter
--- OUTSIDE RECORDS SUMMARY | 2024-02-18 11:37 | External Medical Summary | Summary of Care ---
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) Malignant neoplasm of overlapping sites of both breasts in female, estrogen receptor positive (HCC) Procedures [place] INJECTION, FULVESTRANT Cory Infante MD 200 [facility] [place] [address] Anc Hem/Onc [address] [address] Referral ID Status Reason Start Date Expiration Date V isits Requested Visits Authorized [id number] Authorized 09/16/2023 03/13/[phone] Encounter Details Date Type Department Care Team (Late st Contact Info) Description 10/25/2023 10:15 AM EDT Immunization/I njection Hematology/Oncology Treatment, [address] [address] Nurse, Med 200 [facility] [place] [address] 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)*; 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); Malignant neoplasm of overlapping sites of both breasts in female, estrogen receptor positive (HCC) Allergies No known active allergiesdocumented as of this encounter (statuses as of 10/25/2023) Medications Medication Sig Dispensed Refills Start Date [...] as of this encounter (statuses as of 10/25/2023) Active Problems Problem Noted Date Diagnosed Date [...] as of this encounter (statuses as of 10/25/2023) Resolved Problems Problem Noted Date Diagnosed Date [...] Chowdhury [facility] Contact PI or INTERNAL CONTROLS CONSULTANT regarding any serious medical event, if new Rx given, ER visit, hospitalization, or billing question Diagnosis changed due to Research Module. Go to Snapshot for study details. Encounter for examination fo r normal comparison and control in clinical research program 05/16/2012 06/03/2016 Overview: Diagnosis description adjusted per Research Compliance Office. RESEARCH HEM/ONC FOLLOW UP CARE Renamed per the [facility] for Medicare and Medicaid billing requirements to include Clinical Trial.gov number. Trial participant as of: Project #: [id number] PI Name: Cory Infante MD PI CRC Name: Molly Chowdhury [facility] Contact PI or INTERNAL CONTROLS CONSULTANT regarding any serious medical event, if new Rx given, ER visit, hospitalization, or billing question Diagnosis changed due to Research Module. Go to Snapshot for study details. documented as of this encounter (statuses as of 10/25/2023) Immunizations Name Administration Dates Next Due COVID-19 [...] Medicine [facility] [address] [place] [address] Susie [place] MD [address] [place] [address] 11/22/2023 10:15 AM EDT Immunization/Injec tion Hematology/Oncology Treatment, [place] [address] [place] [phone] Nurse, Med [address] [place] [address] 12/06/2023 8:15 AM EDT Imaging Radiology [facility] 1st [facility], [place] 132 [facility] [place] [address] 12/15/2023 2:45 PM EDT Office Visit Hematology/Oncology [facility] 200 [facility] [place] [phone] Cory Infante MD [address] [place] [address] 07/24/2024 11:00 AM EST Office Visit [address] [place] [address] Donita Cornejo PA-C [address] [place] [address] [place] [address] Scheduled Procedures Name Priority Associated Diagnoses Date/Ti [...] Tdap) 11/03/2023 11/02/2013 CKD PHOS USE SMARTSET 56469 12/02/2023 042 01/2023, 10/12/2021, 02/07/2020 GFR 01/17/2024 07/18/2023, 04/09, 02/04/2023, Additional history exists CKD HGB USE SMARTSET 39877 07/18/202407/18, 07/18/2023, 04/27/2023, Additional history exists Diabetes [...] this encounter Medical Devices Implanted Type Area Masseur/Masseuse Device Identifier Shelf Expiration Date Model / Serial / Lot Implant Hi Prof Gel 750cc - [id number] Implanted:Qty: 1 on 07/02/2013 at [place] [facility] [place] Right: Breast MENTOR DARVIN 11/30/2013 350-7504BC / [id number] / [id number] Implant Hi Prof Gel 750cc - [id number] Implanted:Qty: 1 on 07/02/2013 at [place] [facility] [place] Left: Breast MENTOR DARVIN 04/01/2014 350-7504BC / [id number] / [id number] documented as of this encounter Visit Diagnoses [...] Directives occurred with: Not Discussed Care Teams Custom Furrier Relationship Specialty Start Date End Date Susie White MD 200 [facility] [place] [address] PCP - General Internal Medicine 03/02/12 documented as of this encounter
--- NOTE | 2024-02-18 11:53 | Electrocardiogram Report ---
Test Reason : Blood Pressure : / mmHG Vent. Rate : 070 BPM Atrial Rate : 070 BPM P-R Int : 104 ms QRS Dur : 076 ms QT Int : 392 ms P-R-T Axes : 010 065 074 degrees QTc Int : 423 ms Sinus rhythm with short LA Poor R wave progression, consider anterior CT vs. lead placement vs. LVH Abnormal ECG No previous ECGs available Confirmed by Sandoval Pena ([id number]) on 02/18/2024 11:53:16 AM Referred By: REFERRED SELF Confirmed By:Sandoval Pena
[2024-02-18] MEDS: PROMETHAZINE HCL 6.25 MG in SODIUM CHLORIDE 0.9% 50 ML IV PRN (12:53)
--- NOTE | 2024-02-18 16:02 | Hospitalist Progress Note ---
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 Significant new findings on CAT scan including probable malignant pleural effusion, probable malignant ascites, probable peritoneal carcinomatosis. Continue pain control Saline lock IV fluids Trial of IV Lasix, start Aldactone Text communication with oncology, blanquita, anticipate outpatient follow-up with patient's primary oncologist Advance diet Extensive bedside conversation with patient about results of CAT scan. She understands that most likely this represents worsening metastasis. She understood that this was a potential based on her conversations with outpatient oncologist. 56 minutes spent in reviewing out side records, care with patient at bedside, communication with care team, communication with specialists Admission and Anticipated Discharge Date Admission Date: February 18, 2024 Subjective Abdominal pain and nausea slightly better. Physical Exam Physical Exam: Constitutional: Alert, nontoxic HEENT: Mucous membranes moist. Lungs: Decreased breath sounds at bases right greater than left CV: S1-S2, regular Abdomen: Soft, mild diffuse tenderness, no guarding, no rigidity nondistended Extremities: No significant edema Neuro: No focal deficits Psych: Cooperative, normal mood Results & Data Results & Data Vital Signs (Past 12 Hours) Vital Signs Temp Pulse Pulse Resp BP Pulse Ox O2 Del Method 02/18/24 15:34 36.6 C 64 16 119/72 97 Room Air 02/18/24 07:23 36.5 C 71 16 116/70 97 Room Air 02/18/24 05:30 36.5 C 66 16 130/86 96 Room Air 02/18/24 04:27 74 Diagnostic Findings Reviewed imaging, laboratory and diagnostic studies. Pertinent findings as below. CT abdomen pelvis report reviewed, pleural effusions noted, diffuse inflammation and edema throughout the bowel. Evidence of ascites, no obstruction, suspicion for bony metastasis
[2024-02-18] MEDS: FUROSEMIDE 40 MG/4 ML VIAL IV ONE (16:32)
[2024-02-18] MEDS: traZODone HCL 50 MG TAB PO SCH (20:10)
[2024-02-19 06:57] LABS: Hematocrit (blood only) 38.6 % (37.0-47.0); Hemoglobin 12.9 g/dl (12.0-16.0); Mean Corpuscular Hemoglobin 30.1 pg (25.0-34.0); Mean Corpuscular Hgb Conc 33.4 g/dL (32.0-36.0); Mean Corpuscular Volume 90.2 fL (80.0-100.0); RDW Standard Deviation 42.1 fL (36.4-46.3); Red Blood Count 4.28 M/uL (4.20-5.40)
[2024-02-19 06:58] LABS: Basophils # (auto) 0.03 K/uL (0.00-0.20); Basophils % (auto) 0.8 %; Eosinophils # (auto) 0.22 K/uL (0.00-0.50); Eosinophils % (auto) 6.1 %; Immature Granulocytes # (auto) 0.01 K/uL (0.01-0.20); Immature Granulocytes % (auto) 0.3 %; Lymphocytes # (auto) 0.86 K/uL (1.20-3.40); Lymphocytes % (auto) 23.9 %; Mean Platelet Volume 10.1 fL (9.4-12.4); Monocytes # (auto) 0.33 K/uL (0.11-0.59); Monocytes % (auto) 9.2 %; Neutrophils # (auto) 2.15 K/uL (1.40-6.50); Neutrophils % (auto) 59.7 %; Platelet Count 190 K/uL (130-400); RDW Coefficient of Variation 12.7 % (11.5-14.5)
[2024-02-19 07:15] LABS: BUN Creatinine Ratio 9.7 (10-20); Calcium 8.4 mg/dl (8.6-10.3); Creatinine Clr Calc Pharmacy 59.8 ml/min; Est GFR (African American) 65.2 ml/min; Est GFR (Non-African American) 56.2 ml/min; Potassium 3.9 mmol/L (3.5-5.1)
[2024-02-19 07:34] VITALS: BP 104/70; PULSE 66; TEMP 97.7; O2SAT 98
[2024-02-19] MEDS: SPIRONOLACTONE 25 MG TAB PO SCH (07:40)
[2024-02-19] MEDS: FUROSEMIDE INJ 20 MG/2 ML VIAL IV ONE (07:44)
--- NOTE | 2024-02-19 10:25 | Discharge Summary ---
Discharge Summary Date of Service February 19, 2024 Principal Dx & Hospital Course #1 = Principal Diagnosis (1) Peritoneal carcinomatosis: (2) Malignant pleural effusion: (3) Breast cancer metastasized to multiple sites: (4) Malignant ascites: Plan Patient presented to the emergency room with abdominal pain. Patient has a history of small bowel obstruction. She was given hydration and made NPO. With these interventions her abdominal pain spontaneously improved. CT of the abdomen to rule out obstruction, however did show diffuse inflammation throughout the bowel, showed ascites and pleural effusions. With her known history of metastatic breast cancer extreme concern that this is progression of her breast cancer with possible carcinomatosis with malignant pleural effusions and malignant ascites. She was given some diuretics. She seemed to respond well to this. Discussed oral diuretics upon discharge. Her diet was advanced. She tolerated this well. The day of discharge her laboratory studies were stable. Her vital signs were stable. She was tolerating a diet. With the diffuse inflammation in her bowel she may benefit from small frequent meals and avoiding large chunky foods. We discussed this diet. I also had reached out to the [facility] oncology on-call who is her primary oncologist. They will be helping and assist coordinate outpatient follow-up with her oncologist sooner than what had been previously arranged to discuss what appears to be advancing metastatic breast cancer. She also be discharged and follow-up with her PCP as well. Notes For Next Care Provider Patient at some point may need to have scheduled outpatient therapeutic thoracentesis if she becomes symptomatic May need to monitor electrolytes intermittently with new diuretics started Follow-up with oncology to discuss treatment options and overall prognosis and goals of care. Medication Changes From Visit Lasix and Aldactone added to assist managed malignant pleural effusion and ascites Admission HPI Per Admitting Provider History obtained from patient and records. Medical history significant for metastatic breast cancer status post surgery/chemoradiation/tamoxifen Rx ongoing Truqap/Faslodex Rx, CRI (baseline creatinine 1.3), sarcoidosis as per records, mood disorder. Last confinement August 2023 for SBO status post surgery. Last night patient had achy epigastric discomfort associated with nausea symptoms reminiscent of SBO episode. No chest pain, no SOB. Usual diarrhea symptoms attributed to cancer medication as per patient. No fever, no chills. Denies dysuria/urinary frequency symptoms. 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 Lungs: Clear to auscultation, decreased right base greater than left base with some dullness CV: S1-S2, regular Abdomen: Soft, nontender, nondistended Extremities: No significant edema Neuro: No focal deficits Psych: Cooperative, normal mood Updated Medication List Medication Instructions Recorded Confirmed Type trazodone 50 mg tablet 50 mg PO HS 07/03/23 02/18/24 History capivasertib 200 mg tablet (Truqap) 200 mg PO DIRECTED 02/18/24 02/18/24 History cetirizine 10 mg tablet (Zyrtec) 10 mg PO DAILY PRN NEEDED PER PT 02/18/24 02/18/24 History fulvestrant 250 mg/5 mL 0 mg IM MONTHLY 02/18/24 02/18/24 History intramuscular syringe loperamide 2 mg capsule 2 mg PO DIRECTED PRN Diarrhea 02/18/24 02/18/24 History ondansetron HCl 8 mg tablet 8 mg PO TID PRN NAUSEA/VOMITING 02/18/24 02/18/24 History furosemide 20 mg tablet (Lasix) 20 mg PO DAILY #30 tabs 02/19/24 Rx oxycodone 5 mg tablet 5 mg PO Q4H PRN pain #10 tabs 02/19/24 Rx spironolactone 25 mg tablet 25 mg PO QAM 30 days #30 tabs 02/19/24 Rx Hospital Stay Data Consultations 02/18/24 03:23 ED Decision to Admit Stat Diagnostic Imagining Performed 02/18/24 00:44 CT abd pelvis IV con only Stat Reviewed imaging, laboratory and diagnostic studies. Pertinent findings as below. CBC stable Basic metabolic profile stable CT of the abdomen impression as below, I refer you to the full report for further details IMPRESSION: 1. The bladder wall is significantly thickened with mucosal hyperemia. Correlate with clinical findings and urinalysis. 2. There is mild left hydronephrosis, with no obstructing stone or lesion identified. Urothelial thickening seen in the renal collection system bilaterall y and involving both ureters, greater on the left. Ascending urinary tract infection is not excluded. Again, this should be correlated with clinical and laboratory findings. 3. There is diffuse colonic wall thickening with mucosal hyperemia. The appearance favors a nonspecific pancolitis. Correlate clinically. 4. No bowel obstruction is seen. 5. The appendix is dilated and fluid filled with mucosal thickening PA and hyperemia. This may related to the suspected colitis. Acute appendicitis is considered less likely but is not entirely excluded. Clinical correlation will be essential. 6. Right larger than left pleural effusions with dependent atelectasis. 7. Ascites. Peritoneal thickening and enhancement is suggested in the pelvis. Carcinomatosis is not excluded. 8. Numerous sclerotic foci are seen throughout the skeletal structures. 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 9. The gastric mucosa appears thickened and hyperemic. Correlate clinically for evidence of gastritis. If warranted this could be further assessed with endoscopy. Pending Results Patient Have Any Pending Studies at Discharge: No Discharge Instructions Given to Patient (Per Discharging Provider) Recommend following up with your oncologist Total Time Total Time Spent Total Time Spent (In Minutes): 35
--- OUTSIDE RECORDS SUMMARY | 2024-02-19 10:37 | External Medical Summary | Summary of Care ---
Author Name Unknown Organization [facility] Address [address] [place] [address] Phone [phone] Care Team Providers Care Ceramics Teacher Name Role Phone Susie White MD Primary Care Provider [phone] Encounter Details Date Type Department Care Team (Late st Contact Info) Description 02/18/2024 Orders Only Hematology/Oncology, [facility] [address] [facility] [place] [address] Clarence Patel MD [address] [place] [address] Please have PET scan and appointment with Dr Infante earlier, before next Allergies No known active allergiesdocumented as of this encounter (statuses as of 02/18/2024) Medications Medication Sig Dispensed Refills Start Date [...] as of this encounter (statuses as of 02/18/2024) Active Problems Problem Noted Date Diagnosed Date [...] as of this encounter (statuses as of 02/18/2024) Resolved Problems Problem Noted Date Diagnosed Date [...] CRC Name: Molly LIND Contact PI or ENTRY LEVEL PROJECT COORDINATOR regarding any serious medical event, if [...] [place] [facility] Contact PI or ENTRY LEVEL PROJECT COORDINATOR regarding any serious medical event, if new Rx given, ER visit, hospitalization, or billing question Diagnosis changed due to Research Module. Go to Snapshot for study details. documented as of this encounter (statuses as of 02/18/2024) Immunizations Name Administration Dates Next Due COVID-19 [...] as of this encounter Progress Notes * Clarence Patel MD - 02/18/2024 4:55 PM EDT Please have PET scan and appointment with Dr Infante earlier, before next injection of faslodex. She was seen in the Ed abdominal pain. documented in this encounter Plan of Treatment Upcoming Encounters Date Type Department Care Team (Late st Contact Info) Description 02/23/2024 11:40 AM EDT Office Visit Dermatology, [facility] [address] [place] [address] Daija Bailey PA-C [address] [place] [address] 03/01/2024 7:40 AM EDT Laboratory Laboratory, [place] [address] [place] [phone] [facility] [address] [place] [address] 03/05/2024 9:30 AM EDT Pharmacy Pharmacy Hematology Oncology [address] [address] [facility], [facility] Hem/Onc [facility] [place] [address] 03/13/2024 10:45 AM EDT Imaging Radiology [facility] 1st Floor, [place] [address] [facility] [place] [address] 03/14/2024 8:30 AM EDT Immunization/Injecti on Hematology/Oncology Treatment[facility] [address] [facility] [address] Nurse, Med [address] [place] [address] 04/10/2024 9:15 AM EDT Office Visit Hematology/Oncology [facility] [place] [address] [place] [address] Cory Ifnante MD [address] [place] [address] 04/10/2024 9:45 AM EDT Immunization/Injecti on Hematology/Oncology Treatment, [place] [address] [facility] [id number] Nurse, Med [address] [facility] [place] [address] 05/25/2024 10:40 AM EDT [facility] [address] [place] [address] Susie White MD [address] [place] [address] 07/24/2024 11:00 AM EST Office Visit [facility] [address] [place] [address] [place] [address] Donita Cornejo PA-C [address] [place] [address] [place] [address] Scheduled Procedures Name Priority Associated Diagnoses Date/Ti [...] 024, 10/28/2022, 10/12/2021 CKD PHOS USE SMARTSET 38510 11/20/202411/06, 12/01/2022, 10/12/2021, Additional history exists CKD HGB USE SMARTSET 02290 02/02/202502/02, 02/03/2024, 01/13/2024, Additional history exists Pneumococcal [...] this encounter Medical Devices Implanted Type Area Finished Goods Stock Clerk Device Identifier Shelf Expiration Date Model / Serial / Lot Implant Hi Prof Gel 750cc - [id number] Implanted:Qty: 1 on 07/02/2013 at OR [facility] Right: Breast [employer] 11/30/2013 350-7504BC / [id number] / [id number] Implant Hi Prof Gel 750cc - [id number] Implanted:Qty: 1 on 07/02/2013 at OR [facility] Left: Breast [employer]IN 04/01/2014 [id number] / [id number] / [id number] documented as of this encounter Advance Directives [...] Directives occurred with: Not Discussed Care Teams Ceramics Teacher Relationship Specialty Start Date End Date Susie White MD [address] [place] [address] PCP - General Internal Medicine 03/02/12 documented as of this encounter
== END 2024-02-19 12:06 | disposition home or self-care (01) ==
LOC: 3N 00:10 → ED 00:10 → 3N 05:33